=== PATIENT | female | born 1990 | race Caucasian/White ===

== ENCOUNTER 2019-10-04 08:08 | Emergency (ER) | payer MEDICAID, SELFPAY ==
--- NOTE | ~2019-10-04 | US_ITS ---
EXAMINATION: US OB <=14 wk fetus w TV DATE: 10/04/2019 09:52 INDICATION: Abdominal pain. First trimester. TECHNIQUE: Real-time transabdominal and transvaginal pelvic ultrasound was performed. COMPARISON: None. FINDINGS: TRANSABDOMINAL ULTRASOUND: The uterus measures 9.8 x 5.3 x 7.2 cm. TRANSVAGINAL ULTRASOUND: There is no visible intrauterine gestational sac. The endometrial complex is 13 mm in thickness. The right ovary measures 3.0 x 2.1 x 1.7 cm. The left ovary measures 4.1 x 2.1 x 2.5 cm. There is no free fluid in the pelvis. IMPRESSION: 1. No visible intrauterine gestational sac, which may be normal in early . Ectopic pregnanc y and spontaneous are not excluded. Serial beta-hCGs are recommended. Reviewed, dictated and finalized at location A. IMPRESSION: 1. No visible intrauterine gestational sac, which may be normal in early pregn naun. Ectopic and spontaneous are not excluded. Serial beta- hCGs are recommended.
[2019-10-04 08:14] VITALS: BP 135/81; PULSE 100; RESP 18; TEMP 36.7; O2SAT 100
--- NOTE | 2019-10-04 08:18 | ED.ABDPAIN ---
HPI - Abdominal Pain General Chief Complaint: Abdominal Pain Stated Complaint: abdominal pain Time Seen by Provider: 10/04/19 08:14 Source: RN notes reviewed History of Present Illness HPI narrative: Patient presents emergency department from home for abdominal pain. Patient states symptoms began last night. The pain is located left upper quadrant does not radiate. Described as cramping in nature. The patient states she has a history of Crohn's disease and is on no current medication but states this feels like a normal Crohn's flareup. She is followed by Dr. Fitch. Patient states she also had a recent positive home test at home. Last menstrual cycle was at the end of August. She is followed by [facility]. She denies any vaginal bleeding or discharge. Denies any fevers or chills vomiting diarrhea or any other symptoms Related Data Allergies Allergy/AdvReac Type Severity Reaction Status Date / Time No Known Allergies Allergy Verified 10/04/19 08:18 Review of Systems Review of Systems: Narrative: Gen.: Denies fevers or chills Eyes: Denies eye pain or visual change ENT: Denies congestion Respiratory: Denies shortness of breath or cough CV: Denies chest pain or palpitations GI: See HPI reports Musculoskeletal: Denies back pain or muscle pain Neuro: Denies numbness, tingling, weakness or focal weakness Skin: Denies rash Except as documented, all other systems reviewed and negative [facility] Past Medical History Medical History (Updated 10/04/19 @ 13:08 by Marlo Ring DO) Crohn's disease Social History Social History (Updated 10/04/19 @ 08:21 by Marlo Ring DO) Smoking status: Never smoker Exam Narrative: Exam Narrative: APPEARANCE: No acute distress, nontoxic, resting in bed HEENT: Normocephalic, atraumatic, OMM RESPIRATORY: No respiratory distress, clear to auscultation bilaterally with no rhonchi wheezing or rales CARDIOVASCULAR: RRR s murmur ABDOMINAL: Soft, nondistended, tender palpation left upper quadrant, no tenderness right upper quadrant, right lower quadrant left lower quadrant, no rebound or guarding MUSCULOSKELETAl: Moves all extremities. No clubbing, cyanosis or edema. NEURO: Awake and alert. Following commands, speech normal, no focal deficits SKIN:: Warm, dry. Normal Color PSYCHIATRIC: Normal affect/mood Course Course Emergency Course: Reviewed old records Called and discussed with Dr. Fitch presentation work-up. Agrees with plan for discharge. Request patient be started on Pentasa 2000 mg twice daily with follow-up as an outpatient Discussed with Dr. Marc presentation work-up agrees plan for discharge follow-up as an outpatient repeat beta-hCG Patient states that they are feeling much better at this time. States abdominal pain has improved. Repeat abdominal exam shows the patient's abdomen to be soft with no surgical abdomen present. I discussed extensively with the patient she does know she has a history of Crohn's disease and bowel obstructions. She states she is not vomiting discussed limitations of imaging with she is comfortable being discharged with strict return precautions. We discussed starting Pentasa. Discussed need for follow-up with [facility] as well for repeat beta-hCG discussed with patient results of workup and diagnosis. Discussed need for follow-up with primary care physician, reasons to return to the emergency department in proper use of medication. Patient understands and agrees to current treatment plan Vital Signs Vital signs: Vital Signs Temperature 98.0 F 10/04/19 08:14 Pulse Rate 100 10/04/19 08:14 Respiratory Rate 18 10/04/19 08:14 Blood Pressure 135/81 10/04/19 08:14 Pulse Oximetry 100 10/04/19 08:14 Temperature 98.0 F 10/04/19 08:14 Pulse Rate 102 H 10/04/19 11:04 Respiratory Rate 18 10/04/19 11:04 Blood Pressure 109/75 10/04/19 11:04 Pulse Oximetry 100 10/04/19 11:04
[2019-10-04] MEDS: SODIUM CHLORIDE 0.9% IV 1,000 ML 999 ML IV CONT (08:25)
[2019-10-04 08:32] LABS: Basophils Percent Auto 0.2 % (0.2-1.2); Eosinophils Percent Auto 0.3 % (0-4.4); Hematocrit 46.4 % (37.0-47.0); Hemoglobin 15.9 g/dL (12.0-15.0); Immature Granulocyte Absolute 0.04 K/mm3 (0.00-0.031); Immature Granulocyte Percent A 0.3 % (0-0.5); Lymphocytes Absolute Auto 1.26 K/mm3 (0.9-3.2); Lymphocytes Percent Auto 9.9 % (18.3-44.2); Mean Corpuscular HGB Conc 34.3 g/dl (32-36); Mean Corpuscular Hemoglobin 29.8 pg (26-34); Mean Corpuscular Volume 86.9 fl (80-100); Monocytes Absolute Auto 0.4 K/mm3 (0.1-0.6); Monocytes Percent Auto 3.5 % (2.6-8.5); Neutrophils Absolute Auto 10.9 K/mm3 (1.3-6.7); Neutrophils Percent Auto 85.8 % (45.5-73.1); Platelet Count Result 249 k/mm3 (150-375); Red Blood Count 5.34 M/mm3 (4.2-5.4); Red Cell Distribution Width 12.4 % (11.5-14.5); White Blood Count 12.7 K/mm3 (4.5-10.0)
[2019-10-04 08:35] LABS: Add Urine Microscopic? YES; Appearance Urine Cloudy (Clear); Bilirubin Urine Negative (Negative); Blood Urine Negative (Negative); Color Urine Yellow (Yellow); Glucose Urine UA Negative (Negative); Ketones Urine Negative (Negative); Leukocyte Esterase Ur Negative LEU/UL (Negative); Mucus Urine Rare /lpf; Nitrate Urine Negative (Negative); Protein Urine Negative (Negative); RBC Urine 0-2 /hpf (0-2); Specific Grav Ur 1.017 (1.001-1.035); Squamous Epithelial Cell Urine Many /hpf (Few); Urobilinogen Urine Negative mg/dL (<2.0); WBC Urine 0-3 /hpf
[2019-10-04] MEDS: FAMOTIDINE 20 MG/2 ML VIAL IV PUSH (08:38)
[2019-10-04 08:44] LABS: Alanine Aminotransferase 19 U/L (4-35); Albumin Level 4.7 g/dL (3.5-5.1); Alkaline Phosphatase 74 U/L (38-126); Aspartate Amino Transferase 24 U/L (14-36); Bilirubin,Total 0.6 mg/dL (0.2-1.3); Blood Urea Nitrogen 8 mg/dL (7-17); Calcium 9.5 mg/dL (8.4-10.2); Carbon Dioxide 23 mmol/L (22-30); Chloride 105 mmol/L (98-107); Estimated CRCL calculation 119 ml/min; Estimated Glomerular Filt Rate > 60; Glucose 109 mg/dL (65-105); Lipase 72 U/L (23-300); Potassium 4.2 mmol/L (3.4-5.0); Sodium 136 mmol/L (137-145)
[2019-10-04 09:00] LABS: Beta HCG Quantitative 124.35 mIU/ML
[2019-10-04 09:21] VITALS: BP 103/56; PULSE 83; RESP 18; O2SAT 100
[2019-10-04 11:04] VITALS: BP 109/75; PULSE 102; RESP 18; O2SAT 100
[2019-10-04] MEDS: MESALAMINE 250 MG CAP CR 2000 MG PO (13:26)
== END 2019-10-04 13:27 | disposition home or self-care (01) ==
PROVIDERS: Emergency Provider Emergency Medicine; PCP Internal Medicine
DX: O26.891 Other specified pregnancy related conditions, first trimester (principal); R10.12 Left upper quadrant pain; O99.619 Diseases of the digestive system complicating pregnancy, unspecified trimester; K50.90 Crohn's disease, unspecified, without complications; Z3A.01 Less than 8 weeks gestation of pregnancy
CPT/HCPCS: 36415; 76801; 76817; 80053; 81001; 81025; 83690; 84702; 85025; 96361; 96374; 96375; 99284; A9270; J0131; J7030

== ENCOUNTER 2020-01-26 11:47 | Emergency (ER) | payer OTHER, SELFPAY ==
--- NOTE | 2020-01-26 11:52 | ED.ALLEREA ---
HPI - Allergic Reaction General Chief complaint: Allergic Reaction Stated complaint: anaphalaxis Time Seen by Provider: 01/26/20 11:52 Source: patient Mode of arrival: wheelchair Limitations: no limitations History of Present Illness HPI narrative: Patient is a 29-year-old female with history of Crohn's disease who presents for evaluation of allergic reaction. Patient reportedly was outside taking photographs of her children when she was suddenly stung by either a bee or a wasp. Patient with multiple envenomation sites including left thumb, left knee, right eye, right posterior ear. Patient reports itching sensation in her throat, trouble breathing, cough, rash. Patient without history of anaphylaxis in the past. She states she thinks she is only been stung once before. Patient denies any nausea, vomiting or diarrhea. Related Data Allergies Allergy/AdvReac Type Severity Reaction Status Date / Time No Known Allergies Allergy Verified 01/26/20 11:56 Review of Systems Review of Systems: Narrative: CONSTITUTIONAL: Denies fever HEENT: Reports eye swelling, right eye CARDIOVASCULAR: Denies chest pain RESPIRATORY: Reports tingling sensation in throat, reports mild cough GASTROINTESTINAL: Denies abdominal pain, nausea or vomiting SKIN: Reports rash MUSCULOSKELETAL: Denies back pain NEUROLOGIC: Denies headache PMFSH Past Medical History Medical History Crohn's disease Social History Social History Smoking status: Never smoker Gender identity (if verbalized by the patient): Female Exam Narrative: Exam Narrative: GENERAL: Awake, alert, conversant HEAD: Normocephalic, atraumatic. Mild right superior eyelid edema. EYES: 2+ PERRLA and EOMI. ENT: Nares clear, no rhinorrhea or epistaxis. Mucous membranes moist. Uvula is midline, no edema. No trismus. NECK: Supple. CHEST: No respiratory distress, breathing even and non labored HEART: Regular rate, sinus rhythm ABDOMEN:Non distended, non tender EXTREMITIES: Normal range of motion. No edema. SKIN: Warm, dry, urticaria overlying chest and back. Envenomation site left thumb, left knee, right eye, right ear. No stingers. NEURO:No focal deficits. Alert and oriented x3 Course Vital Signs Vital signs: Vital Signs Temperature 36.8 C 01/26/20 11:53 Pulse Rate 98 01/26/20 11:53 Respiratory Rate 21 H 01/26/20 11:53 Blood Pressure 152/98 H 01/26/20 11:53 Pulse Oximetry 98 01/26/20 11:53 Temperature 36.8 C 01/26/20 11:53 Pulse Rate 96 01/26/20 14:26 Respiratory Rate 18 01/26/20 14:26 Blood Pressure 126/74 01/26/20 14:26 Pulse Oximetry 98 01/26/20 14:26 MDM - Allergic Reaction MDM Narrative Medical decision making narrative: Patient presented for evaluation of hornet envenomation, rash, shortness of breath. The time of assessment, ABCs are intact and vital signs are stable. Patient does have symptoms consistent with anaphylaxis given we have skin involvement, throat involvement. No respiratory distress. No hypoxemia. No wheezing. IV access obtained and patient was given intramuscular epinephrine, Solu-Medrol, Benadryl, famotidine with complete resolution in her symptoms. No recurrence of symptoms in the ER. Patient monitored for 4 hours and did well without any recurrent signs of allergic reaction or anaphylaxis. Patient is not unstable. Patient will be discharged home with these medications, advised to keep them on her at all times. Given education had to use epinephrine autoinjector. Given close PCP follow-up as well as return precautions. Differential Diagnosis Differential diagnosis: Likely anaphylaxis, allergic reaction and urticaria ECG Data EKG #1: ECG completion date: 01/26/20 ECG completion time: 11:53 Interpretation: Rate 92, sinus rhythm, intervals normal, normal axis, no ST segment elevation or dep
[2020-01-26 11:53] VITALS: BP 152/98; PULSE 98; RESP 21; TEMP 36.8; O2SAT 98
[2020-01-26] MEDS: methylPREDNISolone SOD SUCC 125 MG VIAL IV PUSH (11:57)
[2020-01-26] MEDS: FAMOTIDINE 20 MG/2 ML VIAL IV PUSH (11:57)
[2020-01-26] MEDS: EPINEPHrine HCL INJ 1 MG/ML AMPUL 0.3 MG IM (11:57)
[2020-01-26] MEDS: diphenhydrAMINE HCl INJ 50 MG/ML VIAL IV PUSH (11:57)
[2020-01-26 12:08] VITALS: BP 131/76; PULSE 82; RESP 16; O2SAT 98
[2020-01-26] MEDS: SODIUM CHLORIDE 0.9% IV 1,000 ML 999 ML IV CONT (12:19)
--- NOTE | 2020-01-26 13:11 | ECG_ITS ---
Measurements Intervals [place] Rate: 92 P: 73 SC: 169 QRS: 67 QRSD: 84 T: 48 QT: 337 QTc: 419 Interpretive Statements SINUS RHYTHM BASELINE ARTIFACT- V4-V6 NORMAL ECG Electronically Signed On 01-26-2020 18:08:55 CDT by Oscar Thorne D.O.
[2020-01-26 14:26] VITALS: BP 126/74; PULSE 96; RESP 18; O2SAT 98
[2020-01-26 15:35] VITALS: BP 113/69; PULSE 113; RESP 15; O2SAT 98
== END 2020-01-26 16:11 | disposition home or self-care (01) ==
PROVIDERS: Emergency Provider Emergency Medicine; PCP Internal Medicine
DX: T78.2XXA Anaphylactic shock, unspecified, initial encounter (principal); T63.451A Toxic effect of venom of hornets, accidental (unintentional), initial encounter; K50.90 Crohn's disease, unspecified, without complications
CPT/HCPCS: 93005; 96372; 96374; 96375; 99284; J0171; J1200; J2930; J7030

== ENCOUNTER 2020-06-09 11:36 | Emergency (ER) | payer OTHER, MEDICAID, SELFPAY ==
[2020-06-09] VITALS (7 sets, daily range): BP systolic 117–129; BP diastolic 76–84; PULSE 68–98; RESP 15–20; TEMP 36.6; O2SAT 96–100
--- NOTE | ~2020-06-09 | US_ITS ---
EXAMINATION: US OB <= 14 weeks fetus DATE: 06/09/2020 12:27 INDICATION: Abdominal pain during first trimester TECHNIQUE: Real-time pelvic ultrasound utilizing transabdominal probe was performed. The kimberly espinal radiologist was not present for the study. COMPARISON: None. FINDINGS: The uterus measures 13.0 x 8.7 x 8.0 cm. There is an intrauterine gestational sac. A yolk sac and fe drake pole are identified. The crown rump length measures 3.4, which correlates with an estimated gesta tional age of 10 weeks and 2 days. heart motion is identified measuring 159 beats per minute (b pm) by M-mode Doppler. The right ovary measures 2.7 x 1.5 x 2.0 cm. Vascular flow identified in the right ovary on color Dop pler. The left ovary is not visualized There is no free fluid in the pelvis. IMPRESSION: 1. Single living fetus with heart rate of 159 bpm. 2. Gestational age by ultrasound of 10 weeks 2 day(s) +/- 6 day(s) with ultrasound estimated date of delivery ([facility]) of 01/03/2021. Reviewed, dictated and finalized at location A. [facility] IMPRESSION: 1. Single living fetus with heart rate of 159 bpm. 2. Gestational age by ultrasound of 10 weeks 2 day(s) +/- 6 day(s) with ultras ound estimated date of delivery ([facility]) of 01/03/2021.
--- NOTE | 2020-06-09 11:59 | ED.GENADULT ---
HPI - General Adult General Chief complaint: Dizziness Stated complaint: Dizzy, OB Sent patient Time Seen by Provider: 06/09/20 11:51 Source: RN notes reviewed History of Present Illness HPI narrative: Patient presents emergency department from home for dizziness. Patient states symptoms began 3 days ago has been having some intermittent dizziness. States she overall with her dizziness has been having some fatigue she is approximately 10 weeks and is followed by [facility]. States she has been having some lower abdominal pain over the past day this located left lower abdomen as well as some intermittent back pain she denies any fevers or chills chest pain shortness of breath vaginal bleeding vomiting or any other symptoms. She denies any dizziness with sitting in bed but states she does get dizziness with standing up. States she took Tylenol last approximately 2 hours ago patient denies any vaginal bleeding or discharge Related Data Home Medications Medication Instructions Recorded Confirmed No Home Medications 06/09/20 06/09/20 Allergies Allergy/AdvReac Type Severity Reaction Status Date / Time No Known Allergies Allergy Verified 06/09/20 11:44 Review of Systems Review of Systems: Narrative: Gen.: Denies fevers or chills Eyes: Denies eye pain or visual change ENT: Denies congestion Respiratory: Denies shortness of breath or cough CV: Denies chest pain or palpitations GI: See HPI Musculoskeletal: Denies back pain or muscle pain Neuro: Denies numbness, tingling, weakness or focal weakness reports dizziness Skin: Denies rash Except as documented, all other systems reviewed and negative [facility] Past Medical History Medical History Crohn's disease Social History Social History Smoking status: Never smoker Gender identity (if verbalized by the patient): Female Exam Narrative: Exam Narrative: APPEARANCE: No acute distress, nontoxic, resting in bed EYES: EOMI HEENT: Normocephalic, atraumatic, OMM RESPIRATORY: No respiratory distress Clear to auscultation bilaterally with no rhonchi wheezing or rales. CARDIOVASCULAR: Regular rate and rhythm without murmurs rubs or gallops. ABDOMINAL: Soft, nontender, nondistended, no rebound or guarding MUSCULOSKELETAl: Moves all extremities. No clubbing, cyanosis or edema. NEURO: Awake and alert. Following commands, speech normal, no focal deficits SKIN:: Warm, dry. No rashes lesions or abrasions PSYCHIATRIC: Normal affect/mood, Course Course Emergency Course: Patient states dizziness is improved at this time able to get up and ambulate with no dizziness in the emergency department states abdominal pain is resolved Discussed with Dr. Marc presentation work-up agrees with plan for discharge follow-up as an outpatient Discussed with patient results of workup and diagnosis. Discussed need for follow-up with primary care, proper use of medication, and reasons to return to the emergency department. Patient understands and agrees to current treatment plan Vital Signs Vital signs: Vital Signs Temperature 97.8 F 06/09/20 11:39 Pulse Rate 68 06/09/20 11:39 Respiratory Rate 20 06/09/20 11:39 Blood Pressure 127/82 06/09/20 11:39 Pulse Oximetry 99 06/09/20 11:39 Temperature 97.8 F 06/09/20 11:39 Pulse Rate 79 06/09/20 15:38 Respiratory Rate 17 06/09/20 15:38 Blood Pressure 126/76 06/09/20 15:38 Pulse Oximetry 99 06/09/20 15:38 Medical Decision Making Vital Signs Vital Signs: Vital Signs Temperature 97.8 F 06/09/20 11:39 Pulse Rate 68 06/09/20 11:39 Respiratory Rate 20 06/09/20 11:39 Blood Pressure 127/82 06/09/20 11:39 Pulse Oximetry 99 06/09/20 11:39 Temperature 97.8 F 06/09/20 11:39 Pulse Rate 79 06/09/20 15:38 Respiratory Rate 17 06/09/20 15:38 Blood Pressure 126/76
[2020-06-09 12:18] LABS: Basophils Percent Auto 0.1 % (0.2-1.2); Eosinophils Percent Auto 0.4 % (0-4.4); Hemoglobin 14.6 g/dL (12.0-15.0); Immature Granulocyte Absolute 0.03 K/mm3 (0.00-0.031); Immature Granulocyte Percent A 0.4 % (0-0.5); Lymphocytes Absolute Auto 1.47 K/mm3 (0.9-3.2); Lymphocytes Percent Auto 17.8 % (18.3-44.2); Mean Corpuscular HGB Conc 34.8 g/dl (32-36); Mean Corpuscular Hemoglobin 29.7 pg (26-34); Mean Corpuscular Volume 85.4 fl (80-100); Mean Platelet Volume 9.7 fl (7.4-10.4); Monocytes Absolute Auto 0.4 K/mm3 (0.1-0.6); Monocytes Percent Auto 5.3 % (2.6-8.5); Neutrophils Absolute Auto 6.3 K/mm3 (1.3-6.7); Platelet Count Result 218 k/mm3 (150-375); Red Blood Count 4.92 M/mm3 (4.2-5.4); Red Cell Distribution Width 12.9 % (11.5-14.5); White Blood Count 8.3 K/mm3 (4.5-10.0)
--- NOTE | 2020-06-09 12:18 | PC.NURSE ---
PT IN U/S AT THIS TIME.
[2020-06-09 12:24] LABS: Add Urine Microscopic? YES; Appearance Urine Clear (Clear); Bacteria Urine Trace /hpf; Bilirubin Urine Negative (Negative); Blood Urine Negative (Negative); Color Urine Yellow (Yellow); Glucose Urine UA Negative (Negative); Ketones Urine 1+ mg/dL (Negative); Leukocyte Esterase Ur Negative LEU/UL (Negative); Mucus Urine Heavy /lpf; Nitrate Urine Negative (Negative); Protein Urine Negative (Negative); RBC Urine 0-2 /hpf (0-2); Specific Grav Ur 1.024 (1.001-1.035); Squamous Epithelial Cell Urine Moderate /hpf (Few); Urobilinogen Urine Negative mg/dL (<2.0); WBC Urine 0-3 /hpf
[2020-06-09 12:35] LABS: Alanine Aminotransferase 17 U/L (4-35); Albumin Level 4.3 g/dL (3.5-5.1); Alkaline Phosphatase 52 U/L (38-126); Anion Gap 8 mmol/L (8-16); Aspartate Amino Transferase 22 U/L (14-36); Bilirubin,Total 0.4 mg/dL (0.2-1.3); Blood Urea Nitrogen 9 mg/dL (7-17); Calcium 9.8 mg/dL (8.4-10.2); Carbon Dioxide 25 mmol/L (22-30); Chloride 104 mmol/L (98-107); Estimated Glomerular Filt Rate > 60; Glucose 84 mg/dL (65-105); Potassium 3.8 mmol/L (3.4-5.0); Sodium 137 mmol/L (137-145)
[2020-06-09] MEDS: SODIUM CHLORIDE 0.9% IV 1,000 ML 999 ML IV CONT (12:39)
--- NOTE | 2020-06-09 13:47 | ECG_ITS ---
Measurements Intervals [place] Rate: 70 P: 52 MI: 163 QRS: 56 QRSD: 73 T: 22 QT: 373 QTc: 404 Interpretive Statements SINUS RHYTHM BASELINE ARTIFACT- I, II, AVR NORMAL ECG Electronically Signed On 06-09-2020 14:00:05 MOLD REPAIR TECHNICIAN by Oscar Thorne D.O.
--- NOTE | 2020-06-09 13:55 | PC.NURSE ---
I did not obtain this EKG, documenting from EKG
--- NOTE | 2020-06-09 14:28 | PC.NURSE ---
pt ambulates well without assistance. c/o mild frontal headache upon standing.
== END 2020-06-09 15:39 | disposition home or self-care (01) ==
PROVIDERS: Emergency Provider Emergency Medicine; PCP Internal Medicine
DX: O26.891 Other specified pregnancy related conditions, first trimester (principal); R42 Dizziness and giddiness; R10.9 Unspecified abdominal pain; O99.611 Diseases of the digestive system complicating pregnancy, first trimester; K50.90 Crohn's disease, unspecified, without complications; Z3A.10 10 weeks gestation of pregnancy
CPT/HCPCS: 36415; 76801; 80053; 81001; 85025; 93005; 96360; 99284; J7030

== ENCOUNTER 2020-06-18 09:39 | Outpatient (CLI) | payer OTHER, MEDICAID, SELFPAY ==
--- NOTE | 2020-06-20 12:36 | WPDHOLTEREM ---
Holter/Event Monitor Holter/Event Monitor Date of procedure: 06/18/20 Procedure Type: 24 hour holter monitor Indications: Palpitations, sob Conclusion: 1. 24 hour holter monitor on 06/18/20. 2. Underlying rhythm is sinus rhythm. HR range 48-146 bpm; average HR 81 bpm. 3. There are 2 premature supraventricular complexes. No supraventricular tachycardia. 4. No premature ventricular complexes. No ventricular tachycardia. 5. No sinoatrial or atrioventricular blocks. No significant pauses greater than 2 seconds. 6. No symptoms available for correlation.
== END 2020-06-18 09:40 | disposition home or self-care (01) ==
PROVIDERS: PCP Internal Medicine; Visit Provider Obstetrics & Gynecology
DX: R06.09 Other forms of dyspnea (principal)
CPT/HCPCS: 93225; 93226

== ENCOUNTER 2020-10-08 17:35 | Observation (INO) | payer OTHER, SELFPAY ==
[2020-10-08 18:10] VITALS: TEMP 36.1; BMI 32.0
[2020-10-08 18:11] VITALS: BP 127/80; PULSE 96
[2020-10-08 19:03] LABS: Add Urine Microscopic? YES; Amorphous Sediment Urine Few; Appearance Urine Cloudy (Clear); Bacteria Urine 1+ /hpf; Bilirubin Urine Negative (Negative); Blood Urine Negative (Negative); Color Urine Yellow (Yellow); Glucose Urine UA 1+ mg/dL (Negative); Ketones Urine Trace mg/dL (Negative); Leukocyte Esterase Ur Negative LEU/UL (Negative); Mucus Urine Heavy /lpf; Nitrate Urine Negative (Negative); Protein Urine 1+ mg/dL (Negative); Specific Grav Ur 1.023 (1.001-1.035); Squamous Epithelial Cell Urine Many /hpf (Few); Urobilinogen Urine Negative mg/dL (<2.0)
--- NOTE | 2020-10-08 19:43 | OBADM ---
This patient, Agnieszka Sykes, admitted to the OB room OB Post 116 for observation. Patient/family oriented to hospital policies and general routines including ID bracelet, bed and alarms, visiting hours, pain management, procedures, bathroom and other care routines, personal items, smoking policy, room service/diet, and visiting hours. Patient/Family are encouraged to report perceived risks to care and to ask questions if they do not understand what they are told or what they should do.
--- NOTE | 2020-10-10 07:23 | PM.OBTRLD ---
OB - Triage/Final Diagnosis Visit Information Date of evaluation: 10/08/20 Reason for evaluation: threatened labor Comments/Additional reasons for admission: I have assessed the risk for this patient, Agnieszka Sykes, and determined that she would benefit from observation care. Evaluation Laboratory results: Laboratory Tests 10/08/20 18:49 Urine Color Yellow Urine Appearance Cloudy H Urine pH 6.0 Ur Specific [place] 1.023 Urine Protein 1+ H Urine Glucose (UA) 1+ H Urine Ketones Trace Ur Blood (Man) Negative Urine Nitrate Negative Urine Bilirubin Negative Urine Urobilinogen Negative Leukocyte Esterase Rfl Negative Urine RBC 3-5 H Urine WBC 4-6 H Ur Squamous Epith Cells Many H Amorphous Sediment Few H Urine Bacteria 1+ H Urine Mucus Heavy H
== END 2020-10-08 19:48 | disposition home or self-care (01) ==
PROVIDERS: Advanced Practice Midwife; Admitting Provider Obstetrics & Gynecology; PCP Internal Medicine; Visit Provider Obstetrics & Gynecology
DX: O47.02 False labor before 37 completed weeks of gestation, second trimester (principal); Z3A.27 27 weeks gestation of pregnancy
CPT/HCPCS: 81001; G0378; G0379

== ENCOUNTER 2020-12-16 10:41 | Outpatient (CLI) | payer OTHER, SELFPAY ==
[2020-12-16 11:15] VITALS: BP 122/70; PULSE 85; PULSE 96
[2020-12-16 11:23] LABS: Basophils Percent Auto 0.1 % (0.2-1.2); Eosinophils Percent Auto 0.4 % (0-4.4); Hematocrit 36.4 % (37.0-47.0); Hemoglobin 12.2 g/dL (12.0-15.0); Immature Granulocyte Absolute 0.04 K/mm3 (0.00-0.031); Immature Granulocyte Percent A 0.4 % (0-0.5); Lymphocytes Absolute Auto 1.24 K/mm3 (0.9-3.2); Lymphocytes Percent Auto 12.7 % (18.3-44.2); Mean Corpuscular HGB Conc 33.5 g/dl (32-36); Mean Corpuscular Hemoglobin 29.3 pg (26-34); Mean Corpuscular Volume 87.5 fl (80-100); Mean Platelet Volume 10.2 fl (7.4-10.4); Monocytes Absolute Auto 0.7 K/mm3 (0.1-0.6); Monocytes Percent Auto 7.5 % (2.6-8.5); Neutrophils Absolute Auto 7.7 K/mm3 (1.3-6.7); Neutrophils Percent Auto 78.9 % (45.5-73.1); Platelet Count Result 175 k/mm3 (150-375); Red Blood Count 4.16 M/mm3 (4.2-5.4); Red Cell Distribution Width 14.2 % (11.5-14.5); White Blood Count 9.8 K/mm3 (4.5-10.0)
[2020-12-16 11:30] VITALS: BP 110/72; PULSE 91
[2020-12-16 11:39] LABS: Add Urine Microscopic? YES; Appearance Urine Cloudy (Clear); Bacteria Urine 1+ /hpf; Bilirubin Urine Negative (Negative); Blood Urine Negative (Negative); Color Urine Yellow (Yellow); Glucose Urine UA Negative (Negative); Ketones Urine Negative (Negative); Leukocyte Esterase Ur Trace LEU/UL (NEGATIVE); Mucus Urine Few /lpf; Nitrate Urine Negative (Negative); Protein Urine 1+ mg/dL (Negative); Specific Grav Ur 1.023 (1.001-1.035); Squamous Epithelial Cell Urine Many /hpf (Few); Urobilinogen Urine Negative mg/dL (<2.0)
[2020-12-16 11:45] VITALS: BP 113/72; PULSE 88
[2020-12-16 11:50] LABS: Alanine Aminotransferase 13 U/L (4-35); Albumin Level 3.6 g/dL (3.5-5.1); Alkaline Phosphatase 133 U/L (38-126); Anion Gap 6 mmol/L (8-16); Aspartate Amino Transferase 19 U/L (14-36); Bilirubin,Total 0.3 mg/dL (0.2-1.3); Blood Urea Nitrogen 9 mg/dL (7-17); Calcium 9.2 mg/dL (8.4-10.2); Carbon Dioxide 19 mmol/L (22-30); Chloride 109 mmol/L (98-107); Estimated Glomerular Filt Rate > 60; Glucose 81 mg/dL (65-110); Potassium 4.1 mmol/L (3.4-5.0); Sodium 134 mmol/L (137-145); Uric Acid 4.8 mg/dL (2.5-7.5)
[2020-12-16 11:51] LABS: Total Protein Urine Random 17 mg/dL; Ur Ttl Prot Creatinine Ratio 0.11 mg/mg (0-0.20)
[2020-12-16 12:00] VITALS: BP 102/72; PULSE 84
--- NOTE | 2020-12-16 12:11 | PC.NURSE ---
BP's and lab results called to marija Mckeon to dc home.
== END 2020-12-16 12:15 | disposition home or self-care (01) ==
LOC: ANHOBOP 10:44 → ANHOBPP 10:45
PROVIDERS: Advanced Practice Midwife; PCP Internal Medicine; Visit Provider Obstetrics & Gynecology
DX: O13.9 Gestational [pregnancy-induced] hypertension without significant proteinuria, unspecified trimester (principal); Z3A.00 Weeks of gestation of pregnancy not specified
CPT/HCPCS: 36415; 59025; 80053; 81001; 82570; 84156; 84550; 85025; 87086; 87088; 99199

== ENCOUNTER 2020-12-20 12:23 | Outpatient (CLI) | payer OTHER, SELFPAY ==
[2020-12-20 12:46] VITALS: BP 111/69; PULSE 141
[2020-12-20 13:00] VITALS: BP 127/88; PULSE 112
[2020-12-20 13:07] LABS: Basophils Percent Auto 0.1 % (0.2-1.2); Eosinophils Percent Auto 0.4 % (0-4.4); Hematocrit 37.2 % (37.0-47.0); Hemoglobin 12.5 g/dL (12.0-15.0); Immature Granulocyte Absolute 0.05 K/mm3 (0.00-0.031); Immature Granulocyte Percent A 0.5 % (0-0.5); Lymphocytes Absolute Auto 1.43 K/mm3 (0.9-3.2); Mean Corpuscular HGB Conc 33.6 g/dl (32-36); Mean Corpuscular Hemoglobin 29.3 pg (26-34); Mean Corpuscular Volume 87.3 fl (80-100); Monocytes Absolute Auto 0.6 K/mm3 (0.1-0.6); Monocytes Percent Auto 5.4 % (2.6-8.5); Neutrophils Absolute Auto 8.8 K/mm3 (1.3-6.7); Neutrophils Percent Auto 80.6 % (45.5-73.1); Platelet Count Result 188 k/mm3 (150-375); Red Blood Count 4.26 M/mm3 (4.2-5.4); Red Cell Distribution Width 14.2 % (11.5-14.5)
[2020-12-20 13:15] VITALS: BP 128/80; PULSE 101
[2020-12-20 13:19] LABS: Alanine Aminotransferase 12 U/L (4-35); Albumin Level 3.6 g/dL (3.5-5.1); Alkaline Phosphatase 136 U/L (38-126); Anion Gap 7 mmol/L (8-16); Aspartate Amino Transferase 19 U/L (14-36); Bilirubin,Total 0.3 mg/dL (0.2-1.3); Blood Urea Nitrogen 11 mg/dL (7-17); Calcium 9.1 mg/dL (8.4-10.2); Carbon Dioxide 21 mmol/L (22-30); Chloride 107 mmol/L (98-107); Estimated Glomerular Filt Rate > 60; Glucose 90 mg/dL (65-110); Potassium 3.8 mmol/L (3.4-5.0); Sodium 135 mmol/L (137-145); Uric Acid 4.8 mg/dL (2.5-7.5)
[2020-12-20 13:30] VITALS: BP 135/81; PULSE 102
--- NOTE | 2020-12-20 14:10 | PC.NURSE ---
Called Leslye Negrete CNM with pt status. Pt states that she has not felt her baby move since yesterday, has a headache, blurry vision, and upper abdominal pain. Pt states that the headache and upper abdominal pain has been present for weeks and the abdominal pain is better when sitting up than lying back. BPs and lab results given. Informed of initial maternal heart rate of 140's, but now is 100's. Pt has marked a couple of movements on the monitor, but has been getting NSTs in the office for decreased movement. BPP yesterday was 11/23. August D/C home to follow up in office on Tuesday with Dr. Marc.
== END 2020-12-20 14:20 | disposition home or self-care (01) ==
LOC: ANHOBOP 12:29 → ANHLDR 12:31
PROVIDERS: Advanced Practice Midwife; PCP Internal Medicine; Visit Provider Obstetrics & Gynecology
DX: O36.8190 Decreased fetal movements, unspecified trimester, not applicable or unspecified (principal); O13.9 Gestational [pregnancy-induced] hypertension without significant proteinuria, unspecified trimester; O26.899 Other specified pregnancy related conditions, unspecified trimester; R51.9 Headache, unspecified; H53.8 Other visual disturbances
CPT/HCPCS: 36415; 59025; 80053; 84550; 85025; 87086; 87088; 99199

== ENCOUNTER 2020-12-25 09:10 | Observation (INO) | payer OTHER, SELFPAY ==
--- NOTE | ~2020-12-25 | US_ITS ---
EXAMINATION: US OB limited w BPP EXAM DATE: 12/25/2020 11:51 INDICATION: QUOC, BPP, placenta check VARIABLE DECELS 3rd trimester. TECHNIQUE: Pelvic obstetrical transabdominal sonogram was performed by a technologist. There are mu ltiple grayscale and Doppler images available for interpretation. Comparison is made to prior examina tion from 06/09/2020. FINDINGS: There is a single fetus identified in vertex presentation with a heart rate of 137 beats pe r minute. The placenta is located in the anterior position. There is no sonographic evidence of retr oplacental hemorrhage identified. AMNIOTIC FLUID INDEX Quadrant 1: 1.6 cm Quadrant 2: 0 cm Quadrant 3: 3.2 cm Quadrant 4: 2.8 cm Amniotic fluid index: 7.6 cm. (The 5th -- 95th percentile range is 7.3-23.9). BIOPHYSICAL PROFILE (performed by the technologist) breathing (30 sec sustained breathing in 30 minutes): 2 out of 2 movement (3 gross body movements in 30 minutes): 2 out of 2 tone (one episode of eberrpa-sruhsgmyk-ympezfv limb movement): 2 out of 2 Amniotic fluid pocket (2 cm): 2 out of 2 Total score: 8 out of 8 IMPRESSION: 1. Single fetus with heart rate of 137 bpm. 2. Normal biophysical profile score of 8 out of 8. 3. Amniotic fluid index 7.6 cm, lower limits of normal. Reviewed, dictated and finalized at location A.
[2020-12-25 10:01] VITALS: BP 105/86; PULSE 86
[2020-12-25 10:21] LABS: Add Urine Microscopic? YES; Appearance Urine Clear (Clear); Bacteria Urine Trace /hpf; Bilirubin Urine Negative (Negative); Blood Urine Negative (Negative); Color Urine Yellow (Yellow); Glucose Urine UA 1+ mg/dL (Negative); Ketones Urine Negative (Negative); Leukocyte Esterase Ur Negative LEU/UL (Negative); Mucus Urine Few /lpf; Nitrate Urine Negative (Negative); Protein Urine 1+ mg/dL (Negative); Specific Grav Ur 1.021 (1.001-1.035); Squamous Epithelial Cell Urine Moderate /hpf (Few); Urobilinogen Urine Negative mg/dL (<2.0); WBC Urine 0-3 /hpf
[2020-12-25] MEDS: ACETAMINOPHEN 325 MG TABLET 650 MG PO (11:20)
--- NOTE | 2021-01-25 09:53 | PM.OBTRLD ---
OB - Triage/Final Diagnosis Visit Information Comments/Additional reasons for admission: I have assessed the risk for this patient, Agnieszka Sykes, and determined that she would benefit from observation care. Evaluation Laboratory results: Laboratory Tests 12/25/20 10:06 Urine Color Yellow Urine Appearance Clear Urine pH 6.0 Ur Specific [place] 1.021 Urine Protein 1+ H Urine Glucose (UA) 1+ H Urine Ketones Negative Ur Blood (Man) Negative Urine Nitrate Negative Urine Bilirubin Negative Urine Urobilinogen Negative Leukocyte Esterase Rfl Negative Urine RBC 3-5 H Urine WBC 0-3 Ur Squamous Epith Cells Moderate H Urine Bacteria Trace Urine Mucus Few H Final Diagnosis (1) False labor: Code(s): O47.9 - False labor, unspecified Status: Acute
== END 2020-12-25 12:30 | disposition home or self-care (01) ==
PROVIDERS: Advanced Practice Midwife; Admitting Provider Obstetrics & Gynecology; PCP Internal Medicine; Visit Provider Obstetrics & Gynecology
DX: O47.1 False labor at or after 37 completed weeks of gestation (principal); Z3A.38 38 weeks gestation of pregnancy
CPT/HCPCS: 76815; 76819; 81001; A9270; G0378; G0379

== ENCOUNTER 2020-12-28 18:33 | Outpatient (RCR) | payer OTHER, SELFPAY | END 2021-03-28 23:59 | disposition home or self-care (01) | LOC: ANHOBOP 18:33 | PROVIDERS: PCP Internal Medicine; Visit Provider Obstetrics & Gynecology | DX: O36.8130 Decreased fetal movements, third trimester, not applicable or unspecified (principal); Z3A.38 38 weeks gestation of pregnancy | CPT/HCPCS: 59025 ==

== ENCOUNTER 2020-12-29 14:24 | Inpatient (IN) | payer OTHER, SELFPAY ==
[2020-12-29] VITALS (102 sets, daily range): BP systolic 42–152; BP diastolic 22–113; PULSE 65–123; RESP 18–20; TEMP 36.5–36.6; O2SAT 91–100; BMI 32.3
--- NOTE | 2020-12-29 14:24 | LDADM ---
This patient, Agnieszka Sykes, was admitted to Labor/Delivery/Recovery 102 on 12/29/20 at 14:24. Plans for labor, pain management and were discussed with patient. Patient/family oriented to hospital policies and general routines including ID bracelet, bed and alarms, visiting hours, pain management, procedures, bathroom and other care routines, personal items, smoking policy, room service/diet and guest tray routines, infant security routines, and visiting hours. Patient/Family are encouraged to report perceived risks to care and to ask questions if they do not understand what they are told or what they should do. See OBIX for further documentation.
--- OUTSIDE RECORDS SUMMARY | 2020-12-29 14:31 | XMS_ITS ---
:1990 Author Care Team Providers Name Role Phone Marbin Marc Primary Care Provider Unavailable Allergies Code Code System Name Reaction Severity Status Onset NKDA ? Medications Name Status Start Date Stop Date ? ? amoxicillin 500 mg tablet Completed 02/04/20172016 take 1 tablet by oral route 3 times every day for 10 days Anusol-HC 2.5 % topical cream with perineal applicator Active ? Not available APPLY A THIN LAYER TO THE AFFECTED AREA(S) BY TOPICAL ROUTE 2-4 TIMESDAILY azithromycin 1 gram oral packet Completed 11/08/2014 02/18/2016 take 1 packet by oral route dissolved in 2 ounces of water as a single dose azithromycin 500 mg tablet Completed 11/12/201402/17 take 2 tablet by oral route once Banophen 25 mg capsule Completed ? 1 TK 1 C PO TID PRN mnwkbrkrgw-flejldedthxpu-cztgr Active ? N ot available ine 50 mg-300 mg-40 mg capsule cyclobenzaprine 5 mg tablet Completed 10/13/201505/2015 take 1 tablet by oral route 3 times every day Depo-Provera 150 mg/mL intramuscular suspension Completed 02/02/2018 04/25/2019 inject 1 milliliter by intramuscular route every 3 months Diflucan 150 mg tablet Completed 11/03/2016 7 take 1 tablet by oral route once epinephrine 0.3 mg/0.3 mL injection, auto-injector Completed ? 07/21/2020 USE IM UTD Flagyl 500 mg tablet Completed ? 10/12/2019 Take 1 tablet twice a day by oral route for 7 days. iron 18 mg tablet Completed ? 02/18/2016
--- OUTSIDE RECORDS SUMMARY | 2020-12-29 14:31 | XMS_ITS | Encounter Summary ---
:1990 Author Reason for Visit OB visit [id number] Assessment and Plan 1. Routine care Discussion Note: None recorded.Patient educational handouts: No information available. Plan of Care Reminders Provider Appointments Induction Casa Castelan 12/30/2020 MD Monico 7:00AM ? Ob Routine Марина interiano 01/05/2021 MD Cathy 11:30AM ? Ob Routine Марина interiano 01/12/2021 MD Cathy 10:30AM Lab None ? ? recorded. Referral None ? ? recorded. Procedures None ? ? recorded. Surgeries None ? ? recorded. Imaging None ? ? recorded. Medications Name Start Date ? ? Anusol-HC 2.5 % topical cream with perineal applicator ? APPLY A THIN LAYER TO THE AFFECTED AREA(S) BY TOPICAL ROUTE 2-4 TIMESDAILY albnpzctal-hwieqowtxrxlr-fxayfrds 50 mg-300 mg-40 mg c apsule ? Take 1 capsule every 4 hours by oral route. ? sertraline 50 mg tablet ? Take 1 tablet(s) every day by oral route. Medications Administered None recorded. Vitals Height Weight Blood Pressure 5 ft 3 in 218 lbs 156/82 mm[Hg] Results
--- OUTSIDE RECORDS SUMMARY | 2020-12-29 14:32 | XMS_ITS | Encounter Summary ---
:1990 Author Reason for Visit None recorded. Assessment and Plan 1. Maternal obesity complicating , childbirth and the puerperium, antepartum ? non-stress test Discussion Note: None recorded.Patient educational handouts: No information available. Plan of Care Reminders Provider Appointments Induction Casa Castelan 12/30/2020 MD Monico 7:00AM ? Ob Routine Марина interiano 01/05/2021 MD Cathy 11:30AM ? Ob Routine Марина interiano 01/12/2021 MD Cathy 10:30AM Lab None ? ? recorded. Referral None ? ? recorded. Procedures None ? ? recorded. Surgeries None ? ? recorded. Imaging Non-stress [place] Test 12/29/2020 Medications Name Start Date ? ? Anusol-HC 2.5 % topical cream with perineal applicator ? APPLY A THIN LAYER TO THE AFFECTED AREA(S) BY TOPICAL ROUTE 2-4 TIMESDAILY nkglkqlxvy-getfpneptgekq-bxkzpmib 50 mg-300 mg-40 mg c apsule ? Take 1 capsule every 4 hours by oral route. ? sertraline 50 mg tablet ? Take 1 tablet(s) every day by oral route. Medications Administered None recorded. Vit
--- OUTSIDE RECORDS SUMMARY | 2020-12-29 14:32 | XMS_ITS | Encounter Summary ---
:1990 Author Reason for Visit OB visit Assessment and Plan 1. Routine care Discussion Note: None recorded.Patient educational handouts: No information available. Plan of Care Reminders Provider Appointments Induction Rodol lindsey Castelan 12/30/2020 MD Monico 7:00AM ? Ob [...] AFFECTED AREA(S) BY TOPICAL ROUTE 2-4 TIMESDAILY epsvnjxacp-doyvpwuhcwenu-intfwgbt 50 mg-300 mg-40 mg c apsule ? Take 1 capsule every 4 hours by oral route. ? sertraline 50 mg tablet ? Take 1 tablet(s) every day by oral route. Medications Administered None recorded. Vitals Height Weight BMI Blood Pressure 5 ft 3 in 216 lbs 38.3 kg/m2 138/86 mm[Hg] Results Lab Results
--- OUTSIDE RECORDS SUMMARY | 2020-12-29 14:32 | XMS_ITS | Encounter Summary ---
[...] ? recorded. Imaging Non-stress [place] Test 12/23/2020 Medications Name Start Date ? ? Anusol-HC 2.5 % topical cream with perineal applicator ? APPLY A THIN LAYER TO THE AFFECTED AREA(S) BY TOPICAL ROUTE 2-4 TIMESDAILY euvdsnzsrr-bzdiapwavcwtv-yqvictsm 50 mg-300 mg-40 mg c apsule ? Take 1 capsule every 4 hours by oral route. ? sertraline 50 mg tablet ? Take 1 tablet(s) every day by oral route. Medications Administered None recorded. Isabela
--- OUTSIDE RECORDS SUMMARY | 2020-12-29 14:32 | XMS_ITS | Encounter Summary ---
:1990 Author Reason for Visit None recorded. Assessment and Plan 1. Maternal obesity complicating , childbirth and the puerperium, antepartum ? US, obstetric, biophysical profile Discussion Note: None recorded.Patient educational handouts: No information available. Plan of Care Reminders Provider Appointments Induction Rodsusie Castelan 12/30/2020 MD Monico 7:00AM ? Ob Routine Марина interiano 01/05/2021 MD Cathy 11:30AM ? Ob Routine Марина interiano 01/12/2021 MD Cathy 10:30AM Lab None recorded. ? ? Referral None recorded. ? ? Procedures None recorded. ? ? Surgeries None recorded. ? ? [facility] 12/29/2020 Medications Name Start Date ? ? Anusol-HC 2.5 % topical cream with perineal applicator ? APPLY A THIN LAYER TO THE AFFECTED AREA(S) BY TOPICAL ROUTE 2-4 TIMESDAILY ejypyuiygm-xqiuablyupnaq-ccimdebz 50 mg-300 mg-40 mg c apsule ? Take 1 capsule every 4 hours by oral route.
--- OUTSIDE RECORDS SUMMARY | 2020-12-29 14:33 | XMS_ITS | Encounter Summary ---
:1990 Author Reason for Visit None recorded. Assessment and Plan 1. Pre-existing maternal disease complicating ? US, obstetric, follow-up ? US, obstetric, biophysical profile + non-stress test Discussion Note: None recorded.Patient educational [...] None recorded. ? ? Imaging US, Obstetric, [facility] Follow-up 12/23/2020 ? US, Obstetric, [facility] Biophysical Profile + 12/23/2020 Non-stress Test Medications Name Start Date ? ? Anusol-HC 2.5 % topical cream with perineal applicator ? APPLY A THIN LAYER TO THE AFFECTED AREA(S) BY MADELIN
--- OUTSIDE RECORDS SUMMARY | 2020-12-29 14:33 | XMS_ITS | Encounter Summary ---
:1990 Author Reason for Visit OB visit 37wks Assessment and Plan 1. Routine care Discussion [...] AFFECTED AREA(S) BY TOPICAL ROUTE 2-4 TIMESDAILY nbdgatfkwk-xsofivvgbhoiw-mktzjjnp 50 mg-300 mg-40 mg c apsule ? Take 1 capsule every 4 hours by oral route. ? sertraline 50 mg tablet ? Take 1 tablet(s) every day by oral route. Medications Administered None recorded. Vitals Height Weight BMI Blood Pressure 5 ft 3 in 213 lbs 37.7 kg/m2 (1) 143/84 mm[H g]
--- OUTSIDE RECORDS SUMMARY | 2020-12-29 14:33 | XMS_ITS | Encounter Summary ---
:1990 Author Reason for Visit None recorded. Assessment and Plan 1. Abnormal heart rate ? US, obstetric, biophysical profile + non-stress test Discussion Note: None recorded.Patient educational handouts: No information available. Plan of Care Reminders Provider Appointments Induction Rodol lindsey Castelan 12/30/2020 MD Monico 7:00AM ? Ob Routine Марина [place] interiano 01/05/2021 MD Cathy 11:30AM ? Ob Routine Марина [place] ere 01/12/2021 MD Cathy 10:30AM Lab None recorded. ? ? Referral None recorded. ? ? Procedures None recorded. ? ? Surgeries None recorded. ? ? Imaging US, Obstetric, [facility] Biophysical Profile + 12/19/2020 Non-stress Test Medications Name Start Date ? ? Anusol-HC 2.5 % topical cream with perineal applicator ? APPLY A THIN LAYER TO THE AFFECTED AREA(S) BY TOPICAL ROUTE 2-4 TIMESDAILY fzcaufshue-pwzqwqckfjgsi-rzsntkgp 50 mg-300 mg-40 mg c apsule ? Take 1 capsule every 4 hours by oral route. ? sertraline 50 mg tablet ?
--- OUTSIDE RECORDS SUMMARY | 2020-12-29 14:33 | XMS_ITS | Encounter Summary ---
:1990 Author Reason for Visit None recorded. Assessment and Plan 1. Pre-existing maternal disease complicating ? US, obstetric, biophysical profile + non-stress test Discussion Note: None recorded.Patient educational handouts: No information available. Plan of Care Reminders Provider Appointments Induction Rodol lindsey Castelan 12/30/2020 MD Monico 7:00AM ? Ob Routine Марина [place] interiano 01/05/2021 MD Cathy 11:30AM ? Ob Routine Марина [place] interiano 01/12/2021 MD Cathy 10:30AM Lab None recorded. ? ? Referral None recorded. ? ? Procedures None recorded. ? ? Surgeries None recorded. ? ? Imaging US, Obstetric, [facility] Biophysical Profile + 12/16/2020 Non-stress Test Medications Name Start Date ? ? Anusol-HC 2.5 % topical cream with perineal applicator ? APPLY A THIN LAYER TO THE AFFECTED AREA(S) BY TOPICAL ROUTE 2-4 TIMESDAILY wivmuykewk-olarpyxtxjycw-egoehobg 50 mg-300 mg-40 mg c apsule ? Take 1 capsule every 4 hours by oral route. ? sertraline 50 mg tablet
--- OUTSIDE RECORDS SUMMARY | 2020-12-29 14:34 | XMS_ITS | Encounter Summary ---
:1990 Author Reason for Visit OB visit Assessment and Plan Assessment Note Patient is ___weeks . Discu ssed plan. 1. Routine care 2. Crohn's disease This patient is a 29-year-old female who presents for follow-up on first trimester IUP . She has Crohn's disease. She has been referred to maternal- medicine for her Crohn's dis ease. She has a 7-week 4-day IUP today . An ultrasound was performed. We reviewed those results. She is doing well. She had a recent flare of her Crohn's . She is doing well now. We discussed vari ous aspects of care. We discuss ed monitoring / testing. She return in 5 weeks for initial OB . We talked about genetic screening. Discussion Note: None recorded.Patient educational handouts: No [...]
--- OUTSIDE RECORDS SUMMARY | 2020-12-29 14:34 | XMS_ITS | Encounter Summary ---
:1990 Author Reason for Visit OB visit OB [id number] EDC 01/06/2021 LMP 03/18/2020 Assessment and Plan 1. Routine care Discussion [...] AFFECTED AREA(S) BY TOPICAL ROUTE 2-4 TIMESDAILY xsshyemrmr-bomquyyspthcq-qgjmssgb 50 mg-300 mg-40 mg c apsule ? Take 1 capsule every 4 hours by oral route. ? sertraline 50 mg tablet ? Take 1 tablet(s) every day by oral route. Medications Administered None recorded. Vitals Height Weight BMI Blood Pressure 5 ft 3 in 207 lbs 36.7 kg/m2 117/73 mm[Hg] Resu
--- OUTSIDE RECORDS SUMMARY | 2020-12-29 14:34 | XMS_ITS | Encounter Summary ---
:1990 Author Reason for Visit OB visit OB [id number] EDC 01/06/2021 LMP 03/18/2020 Assessment and Plan Assessment Note Patient is _33__weeks . Dis cussed plan. 1. Routine care Discussion Note: None recorded.Patient [...] AFFECTED AREA(S) BY TOPICAL ROUTE 2-4 TIMESDAILY iruoadgwyl-gcshowsocoruw-xbopqetr 50 mg-300 mg-40 mg c apsule ? Take 1 capsule every 4 hours by oral route. ? sertraline 50 mg tablet ? Take 1 tablet(s) every day by oral route. Medications Administered None recorded. Vitals
[2020-12-29] MEDS: LACTATED RINGERS 1,000 ML 125 ML IV CONT ×2 (15:00→16:48)
[2020-12-29] MEDS: OXYTOCIN 30 UNITS/NS 500 ML 30 UNITS/500 ML BAG IV CONT (15:01)
[2020-12-29 15:21] LABS: Basophils Percent Auto 0.1 % (0.2-1.2); Eosinophils Absolute Auto 0.1 K/mm3 (0-0.3); Eosinophils Percent Auto 0.5 % (0-4.4); Hematocrit 37.9 % (37.0-47.0); Hemoglobin 12.6 g/dL (12.0-15.0); Immature Granulocyte Absolute 0.05 K/mm3 (0.00-0.031); Immature Granulocyte Percent A 0.4 % (0-0.5); Lymphocytes Absolute Auto 1.49 K/mm3 (0.9-3.2); Lymphocytes Percent Auto 13.2 % (18.3-44.2); Mean Corpuscular HGB Conc 33.2 g/dl (32-36); Mean Corpuscular Volume 87.1 fl (80-100); Mean Platelet Volume 10.1 fl (7.4-10.4); Monocytes Absolute Auto 0.5 K/mm3 (0.1-0.6); Monocytes Percent Auto 4.6 % (2.6-8.5); Neutrophils Absolute Auto 9.2 K/mm3 (1.3-6.7); Neutrophils Percent Auto 81.2 % (45.5-73.1); Platelet Count Result 187 k/mm3 (150-375); Red Blood Count 4.35 M/mm3 (4.2-5.4); Red Cell Distribution Width 13.8 % (11.5-14.5); White Blood Count 11.3 K/mm3 (4.5-10.0)
[2020-12-29 15:31] LABS: Alanine Aminotransferase 14 U/L (4-35); Albumin Level 3.5 g/dL (3.5-5.1); Alkaline Phosphatase 150 U/L (38-126); Anion Gap 11 mmol/L (8-16); Aspartate Amino Transferase 21 U/L (14-36); Bilirubin,Total 0.2 mg/dL (0.2-1.3); Blood Urea Nitrogen 11 mg/dL (7-17); Calcium 8.8 mg/dL (8.4-10.2); Carbon Dioxide 18 mmol/L (22-30); Chloride 108 mmol/L (98-107); Estimated CRCL calculation 124 ml/min; Estimated Glomerular Filt Rate > 60; Glucose 121 mg/dL (65-110); Potassium 3.9 mmol/L (3.4-5.0); Sodium 137 mmol/L (137-145); Uric Acid 5.5 mg/dL (2.5-7.5)
--- NOTE | 2020-12-29 16:52 | WPDANESEPPF ---
Anes - Initial Pre Proc Eval Procedure: labor epidural Date/Time: 12/29/20 16:52 Surgeon: Luis A Marc MD Pre Op Diagnosis: labor pain Pre Op Diagnosis: Induction of Labor Patient Data Age: 30 Gender: F Height: 1.73 m Weight: 96.5 kg Last Vital Signs Temp 36.5 C 12/29/20 14:47 Pulse 96 12/29/20 16:51 Resp 20 12/29/20 14:47 BP 127/75 12/29/20 16:51 Pulse Ox 99 12/29/20 16:47 Allergies Allergy/AdvReac Type Severity Reaction Status Date / Time No Known Allergies Allergy Verified 06/09/20 11:44 Home Medications Medication Instructions Recorded Confirmed Type Classic 1 tablet PO DAILY 10/08/20 12/29/20 History sertraline 100 mg PO DAILY 10/08/20 12/29/20 History valacyclovir [Valtrex] 500 mg PO DAILY 12/08/20 12/08/20 History Laboratory Tests 12/29/20 12/29/20 12/29/20 14:49 14:49 14:49 WBC 11.3 K/mm3 H K/mm3 (4.5-10.0) RBC 4.35 M/mm3 M/mm3 (4.2-5.4) Hgb 12.6 g/dL g/dL (12.0-15.0) Hct 37.9 % % (37.0-47.0) MCV 87.1 fl fl (80-100) MCH 29.0 pg pg (26-34) MCHC 33.2 g/dl g/dl (32-36) RDW 13.8 % % (11.5-14.5) Plt Count 187 k/mm3 k/mm3 (150-375) MPV 10.1 fl fl (7.4-10.4) Immature Gran % (Auto) 0.4 % % (0-0.5) Neut % (Auto) 81.2 % H % (45.5-73.1) Lymph % (Auto) 13.2 % L % (18.3-44.2) Banks % (Auto) 4.6 % % (2.6-8.5) Eos % (Auto) 0.5 % % (0-4.4) Baso % (Auto) 0.1 % L % (0.2-1.2) Lymph # (Auto) 1.49 K/mm3 K/mm3 (0.9-3.2) Banks # (Auto) 0.5 K/mm3 K/mm3 (0.1-0.6) Eos # (Auto) 0.1 K/mm3 K/mm3 (0-0.3) Baso # (Auto) 0.0 K/mm3 K/mm3 (0.0-0.1) Abs Immat Gran (auto) 0.05 K/mm3 H K/mm3 (0.00-0.031) Absolute Neuts (auto) 9.2 K/mm3 H K/mm3 (1.3-6.7) Absolute Nucleated RBC 0.0 K/mm3 K/mm3 (0.0-0.012) Nucleated RBC % 0.0 % % (0.0-0.2) Sodium Potassium Chloride Carbon Dioxide Anion Gap BUN Creatinine Estim Creat Clear Calc Estimated GFR Glucose Uric Acid Calcium Total Bilirubin AST ALT Alkaline Phosphatase Total Protein Albumin RPR Pending Blood Type O Positive Antibody Screen Negative 12/29/20 14:49 WBC RBC Hgb Hct MCV MCH MCHC RDW Plt Count MPV Immature Gran % (Auto) Neut % (Auto) Lymph % (Auto) Banks % (Auto) Eos % (Auto) Baso % (Auto) Lymph # (Auto) Banks # (Auto) Eos # (Auto) Baso # (Auto) Abs Immat Gran (auto) Absolute Neuts (auto) Absolute Nucleated RBC Nucleated RBC % Sodium 137 mmol/L mmol/L (137-145) Potassium 3.9 mmol/L mmol/L (3.4-5.0) Chloride 108 mmol/L H mmol/L (98-107) Carbon Dioxide 18 mmol/L L mmol/L (22-30) Anion Gap 11 mmol/L mmol/L (8-16) BUN 11 mg/dL mg/dL (7-17) Creatinine 0.70 mg/dL mg/dL (0.7-1.0) Estim Creat Clear Calc 124 ml/min ml/min Estimated GFR > 60 (59 - ) Glucose 121 mg/dL H mg/dL (65-110) Uric Acid 5.5 mg/dL mg/dL (2.5-7.5) Calcium 8.8 mg/dL mg/dL (8.4-10.2) Total Bilirubin 0.2 mg/dL mg/dL (0.2-1.3) AST 21 U/L U/L (14-36) ALT 14 U/L U/L (4-35) Alkaline Phosphatase 150 U/L H U/L (38-126) Total Protein 7.0 g/dL g/dL (6.3-8.2) Albumin 3.5 g/dL g/dL (3.5-5.1) RPR Blood Type Antibody Screen Patient hx anesthesia problems: none Family hx anesthesia problems: none [facility] Past Medical History Medical History (Reviewed 12/29/20 @ 16:53 by Edmond
--- NOTE | 2020-12-29 17:49 | WPDOBADMIT ---
Obstetrics - Admit Note Admission Note: 30 y/o @ 38w6d here for induction d/t GHTN. Cervix /-2 AROM moderate amount of clear odorless fluid Anticipate record reviewed. No pertinent additions to the history and/or any subsequent changes in the physical findings that are not consistent with the expected course of the were found. Additions to the history and/or subsequent changes in the physical findings follow. None.
--- NOTE | 2020-12-29 21:38 | PM.OBPRVD ---
OB - Delivery Note Procedure Delivery date: 12/29/20 events: Induced HTN Intrapartal events: None Induction method: per pitocin protocol Delivery monitor: external FHT and external uterine Route of delivery: Episiotomy description: None Laceration Description: None Quantitative Blood Loss (ml): 37 Anesthesia type: Epidural Narrative: Mother and baby in stable condition. Cord gasses collected and handed off to staff. Baby Date of : 12/29/20 Time of : 21:17 Weeks of gestation at delivery: 38 gender: Male Weight (pounds): 7 Weight (ounces): 8 presentation: vertex position: Left Occiput Anterior Placenta delivery description: Spontaneous cord vessel description: Delayed Cord Clamping score one minute: 9 score five minutes: 9
[2020-12-29] MEDS: OXYTOCIN 30 UNITS/NS 500 ML 30 UNITS/500 ML BAG 125 UNITS IV CONT (21:52)
[2020-12-30] VITALS (9 sets, daily range): BP systolic 101–121; BP diastolic 62–73; PULSE 76–105; RESP 15–20; TEMP 36.4–37; O2SAT 96–99
[2020-12-30] MEDS: WITCH HAZEL 40 PADS 1 PAD TOPICAL (00:05)
[2020-12-30] MEDS: BENZOCAINE 20% AER SPR (*SP) 56 GM CAN 1 SPRAY TOPICAL (00:05)
--- NOTE | 2020-12-30 00:14 | OBPPTRN ---
Patient transferred to post room #287 via wheelchair. Support person present. Oriented to unit, room, information board, rooming in, admission packet and security measures. Patient verbalizes understanding.
[2020-12-30] MEDS: ACETAMINOPHEN 325 MG TABLET 650 MG PO ×2 (00:43→08:55)
[2020-12-30] MEDS: IBUPROFEN 600 MG TABLET PO ×3 (02:39→23:01)
[2020-12-30 05:19] LABS: Hematocrit 35.2 % (37.0-47.0); Hemoglobin 11.7 g/dL (12.0-15.0)
--- NOTE | 2020-12-30 07:46 | PM.OBPNVD ---
OB - PN: Subj Subjective Date/time seen: 12/30/20 07:46 Patient comments: no complaints baby status: doing well OB - PN: Obj Data Labs CBC & Chem 7: 12/30/20 05:06 12/29/20 14:49 Labs: Laboratory Results - last 24 hr 12/29/20 12/29/20 12/29/20 14:49 14:49 14:49 WBC 11.3 H RBC 4.35 Hgb 12.6 Hct 37.9 MCV 87.1 MCH 29.0 MCHC 33.2 RDW 13.8 Plt Count 187 MPV 10.1 Immature Gran % (Auto) 0.4 Neut % (Auto) 81.2 H Lymph % (Auto) 13.2 L [place] % (Auto) 4.6 Eos % (Auto) 0.5 Baso % (Auto) 0.1 L Lymph # (Auto) 1.49 [place] # (Auto) 0.5 Eos # (Auto) 0.1 Baso # (Auto) 0.0 Abs Immat Gran (auto) 0.05 H Absolute Neuts (auto) 9.2 H Absolute Nucleated RBC 0.0 Nucleated RBC % 0.0 Sodium 137 Potassium 3.9 Chloride 108 H Carbon Dioxide 18 L Anion Gap 11 BUN 11 Creatinine 0.70 Estim Creat Clear Calc 124 Estimated GFR > 60 Glucose 121 H Uric Acid 5.5 Calcium 8.8 Total Bilirubin 0.2 AST 21 ALT 14 Alkaline Phosphatase 150 H Total Protein 7.0 Albumin 3.5 Blood Type O Positive Antibody Screen Negative 12/30/20 05:06 WBC RBC Hgb 11.7 L Hct 35.2 L MCV MCH MCHC RDW Plt Count MPV Immature Gran % (Auto) Neut % (Auto) Lymph % (Auto) [place] % (Auto) Eos % (Auto) Baso % (Auto) Lymph # (Auto) [place] # (Auto) Eos # (Auto) Baso # (Auto) Abs Immat Gran (auto) Absolute Neuts (auto) Absolute Nucleated RBC Nucleated RBC % Sodium Potassium Chloride Carbon Dioxide Anion Gap BUN Creatinine Estim Creat Clear Calc Estimated GFR Glucose Uric Acid Calcium Total Bilirubin AST ALT Alkaline Phosphatase Total Protein Albumin Blood Type Antibody Screen OB - PN A/P Plan day: 1 Plan: routine care Time Spent With Patient Time: Total time spent is greater than 50% in coordination of care (as documented) at patient's floor/unit and/or counseling patient: Time with patient: less than 15 minutes Review of Systems Review of Systems: All systems reviewed & are unremarkable except as noted in HPI and below Exam Narrative: Fundus firm and vaginal flow controlled. No lower ext redness, warmth, or edema. Negative homans. Denies h/a, v/d or e/p. Reflexes normal. Const: General: comfortable Chest: Breast/axilla inspection: normal inspection of the breasts Resp: Effort & Inspection: normal respiratory effort Cardio: Rate: regular rate GI: GI Palp: Yes Soft to palpation Psych: Appearance: grossly normal Affect: normal affect Attitude: cooperative Thought content: Yes Normal thought content present Judgement: Good judgement present (Psych)
[2020-12-30 09:46] LABS: Rapid Plasma Reagin Non-Reactive (NonReactive)
--- NOTE | 2020-12-30 11:00 | WPDANLDPN2 ---
Anes-Prog Note L&D Date/Time: 12/30/20 11:00 Comfortable throughout: labor and delivery Neuraxial method: epidural Epidural/Spinal procedure site: clean & non-tender Neuro status: Neuro function grossly intact. Cardiovascular status: normal Respiratory status: normal Airway patency: baseline Mental status: baseline Post-Op hydration status: normal Vital Signs: Last Vital Signs Temp 36.9 C 12/30/20 07:45 Pulse 76 12/30/20 08:45 Resp 16 12/30/20 08:45 BP 110/63 12/30/20 07:45 Pulse Ox 97 12/30/20 08:45 Pain score (VAS): 0 I/O: Intake & Output 12/29/20 12/30/20 12/30/20 23:59 07:59 15:59 Intake Total 1000 400 Output Total 37 171 Balance 963 229 Post-procedural complaints: none Patient feedback: Patient satisfied with anesthetic care.
[2020-12-30] MEDS: MULTIVIT/MIN/PREN/FOL AC/IRON TABLET 1 TAB PO (11:19)
--- NOTE | 2020-12-30 14:00 | PC.NURSE ---
RN requested assist with feeding. Attempt to consult with pt., earlier in day X 3. Pt. was on the phone or resting. Consulted with patient, mother reports infant has been sleepy since circumcision and has not latched for 6 hours. Reviewed infant feeding cues, frequencies, duration of feedings, feeding elimination flow sheet, and signs of adequate intake. Demonstrated stimulation techniques to wake infant for feeding. Assisted with to breast. Reviewed positioning/alignment in cross cradle, holding breast in U hold and guided asymmetrical latch on. was sleepy and made little effort to latch. Once latched infant nursed eagerly with short bursts followed with long pausing. Mother reports infant is sleepy due to circumcision. Reviewed infant needs to wake to feed. Mother hesitant to wake . Attempt for 20+ minutes without effective feeding. Suggested mother pump and give EBM. Mother states will wake to feed when ready. Reviewed newborns need to be awoken to feed every 3 hours, feeding before if feeding cues noted. Assisted mother with pumping using her own Medela double electric pump. Reviewed breast pump care and usage, pumping schedule, nipple care, and collection and storage of breast milk. Assessed patient for correct flange size, placement and draw. Patient verbalizes and demonstrates understanding of instructions. Suggested mother use 27mm flange she prefers 24mm.
[2020-12-31 05:05] VITALS: BP 132/78
--- NOTE | 2020-12-31 07:36 | PM.OBPNVD ---
OB - PN: Subj Subjective Date/time seen: 12/31/20 07:36 Patient comments: no complaints baby status: doing well OB - PN: Obj Data Labs CBC & Chem 7: 12/30/20 05:06 12/29/20 14:49 Labs: Laboratory Results - last 24 hr 12/29/20 14:49 RPR Non-reactive OB - PN A/P Plan day: 2 Plan: routine care and discharge home Time Spent With Patient Time: Total time spent is greater than 50% in coordination of care (as documented) at patient's floor/unit and/or counseling patient: Review of Systems Review of Systems: All systems reviewed & are unremarkable except as noted in HPI and below Exam Const: General: cooperative
--- NOTE | 2020-12-31 07:38 | PM.OBDSVD ---
DS: Admitting Diagnosis Discharge Date 12/31/2020 Admitting Diagnosis IOL OB - DS: Summary OB Procedures : None OB Procedures Intrapartum: Spontaneous Vag Delivery OB Procedures: : None Time Spent with Patient Time attestation: Total time spent providing and/or coordinating discharge services: DS: Data Data Completed and Pending Pending studies at discharge: Pending at discharge 12/29/20 21:58 Surgical [PTH] Routine Labs on day of discharge: Labs from last 24 hours 12/29/20 14:49 RPR Non-reactive Discharge Plan Discharge Attending physician on discharge: Luis A Marc Consulting providers: Melodie Jenkins ; Shanita Negrete Discharging Clinician: Shanita Negrete Patient Disposition: Home, Self-Care Activity: pelvic rest Diet: regular Discharge Instructions: Education: Mom and Baby Guide Given to: Mother Follow-Up: Call your delivering provider's office for an appointment to be seen in: 1 Week Mom and baby [facility] for the follow-up appointment. Appointment Date/Time: January 03, 2021 at 10:00 am What to expect at your follow-up visit: Blood Pressure Check Physical Assessment Call [phone] if you are unable to keep your appointment time. BREAST CARE: * Wear a snug supportive bra. * For engorgement discomfort: Breast Feeding: * Apply warm moist washcloths * Express milk as needed to relieve engorgement * Wear loose clothing * For sore nipples: * Identify correct latch-on * Apply warm moist washcloths before and after nursing * Air dry nipples after nursing * May apply Lansinoh cream to nipples EPISIOTOMY/PERINEAL CARE: * Until bleeding stops, use your shalom bottle after urinating * Change your pad frequently throughout the day * You may take sitz baths several times a day (fill your bathtub with warm water and soak for 20 minutes.) Do NOT bathe in the water * No tub baths until seen by your physician - You may shower ACTIVITY: * Rest as much as possible. * Do not exercise or lift anything heavier than your baby (such as laundry or other children.) * Avoid stairs or driving as much as possible. * Do not put anything into the vagina. No douching, tampons, or sexual activity until seen by physician. NOTIFY PHYSICIAN IF YOU HAVE ANY QUESTIONS OR IF ANY OF THE FOLLOWING SYMPTOMS OCCUR: * If your perineum becomes red, swollen, or more painful than what you have experienced in the hospital. * If your vaginal bleeding becomes foul smelling. * If your vaginal bleeding becomes more heavy than a period or if your bleeding changes from pink to bright red. However, you may pass an occasional walnut-sized clot once or twice for the first week . * If you experience a sharp, shooting pain in you calves. * If you discover a hard, reddened area on your breast or if you experience flu-like symptoms. *Temperature of 100.4 or higher. DIET: * Eat regular, well-balanced meals. * Drink plenty of fluids daily. If , drink to thirst. Stand Alone Forms: General Discharge Information Follow-up/Referrals: Melodie Jenkins CNM [Certified Nurse Account Supervisor] - 4 Weeks Discharge Medications: Continued sertraline 50 mg tablet 100 mg PO DAILY RF: 0 Classic 28 mg iron- 800 mcg Tablet 1 tablet PO DAILY RF: 0 Discontinued valacyclovir [Valtrex] 500 mg Tablet 500 mg PO DAILY RF: 0 Date of admission: 12/29/20 14:24 Primary Care Provider: Rach,Enoch Conroy Admitting Provider: Luis A Marc Attending physician on admission: Luis A Marc Condition: Stable
[2020-12-31 08:15] VITALS: BP 127/83; PULSE 93; RESP 16; TEMP 36.4; O2SAT 100
--- NOTE | 2020-12-31 09:30 | PC.NURSE ---
Mother verbalizes she is able to independently latch with appropriate positioning/alignment. She denies any nipple discomfort. Mother will supplement if infant has a short feeding or she feels he is not satisfied. had one 6+ hour without feeding during the night, reviewed to wake by 4 hours until seen by ICP at 1 week. Infant has had a few effective feedings in the past 24 hours, and is currently meeting outcomes for weight, output, jaundice and feeding frequencies. Mother states she feels confident to continue current feeding plan of supplementing after if she feels requires. Mother continues to pump at times after some feedings. Discussed stimulation and milk supply. Mother is hesitant for assist or education. Stressed to wake to feed every three hours. Reviewed transition to breast milk, signs of adequate intake, and engorgement/relief. Instructed to call ICP if intake/output less than required. Reviewed regular medications mother is taking. Information provided per Nicole. Reviewed community resources on the [facility] and in the Mom/Baby guide. Information on outpatient services provided. Mother has no further questions at this time.
[2020-12-31] MEDS: DOCUSATE SODIUM 100 MG CAPSULE PO (10:25)
[2020-12-31] MEDS: IBUPROFEN 600 MG TABLET PO (10:26)
[2020-12-31] MEDS: MULTIVIT/MIN/PREN/FOL AC/IRON TABLET 1 TAB PO (10:26)
[2021-01-03 10:57] VITALS: BP 118/72; PULSE 80; RESP 20; TEMP 36.8; O2SAT 100
== END 2020-12-31 12:33 | disposition home or self-care (01) | DRG 806 ==
LOC: ANHLDR 14:29 → ANHOB2 12-30 00:14
PROVIDERS: Advanced Practice Midwife; Admitting Provider Obstetrics & Gynecology; PCP Internal Medicine; Visit Provider Obstetrics & Gynecology
DX: O13.4 Gestational [pregnancy-induced] hypertension without significant proteinuria, complicating childbirth (principal); K50.90 Crohn's disease, unspecified, without complications; Z37.0 Single live birth; O98.32 Other infections with a predominantly sexual mode of transmission complicating childbirth; Z3A.38 38 weeks gestation of pregnancy; O36.8330 Maternal care for abnormalities of the fetal heart rate or rhythm, third trimester, not applicable or unspecified; O99.62 Diseases of the digestive system complicating childbirth; A60.00 Herpesviral infection of urogenital system, unspecified
CPT/HCPCS: 36415; 80053; 84550; 85014; 85018; 85025; 86592; 86850; 86900; 86901; 88307; A9270; J2590; J7120

== ENCOUNTER → 2021-02-07 01:33 | Outpatient (CLI) | payer OTHER, SELFPAY ==
[2021-02-07 18:07] LABS: SARS-CoV-2 RNA PCR Negative
== END ==
PROVIDERS: PCP Internal Medicine; Visit Provider Obstetrics & Gynecology
DX: Z01.812 Encounter for preprocedural laboratory examination (principal); Z20.822 Contact with and (suspected) exposure to COVID-19
CPT/HCPCS: C9803; U0003; U0005

== ENCOUNTER 2021-10-07 15:13 | Observation (INO) | payer OTHER, SELFPAY ==
[2021-10-07] VITALS (16 sets, daily range): BP systolic 112–137; BP diastolic 55–104; PULSE 76–92; RESP 16–18; TEMP 36.4–37.1; O2SAT 97–100; BMI 32.1
--- NOTE | ~2021-10-07 | CT_ITS ---
EXAMINATION: CT abdomen pelvis wo con DATE: 10/07/2021 16:50 INDICATION: Abdominal pain since last night TECHNIQUE: Computed tomography (CT) of the abdomen and pelvis was performed without intravenous contr ast. Automated exposure control and iterative reconstruction technique were employed. Exam dose: 850 .47 mGy-cm total exam DLP. COMPARISON: June 14, 2018 CT abdomen pelvis FINDINGS: The lung bases are clear of infiltrate or consolidation. Normal heart size. No pericardial or pleural effusion. The liver, gallbladder, bile ducts, spleen, pancreas pancreatic duct are unremarkable. The gallbladde r is present. No gallbladder wall thickening or pericholecystic fluid or fat stranding is noted. No renal mass lesion or urinary tract calculus or hydroureteronephrosis. The uterus, adnexal areas an d urinary bladder are unremarkable. Normal caliber of the abdominal aorta. No intraperitoneal or retroperitoneal or pelvic mass lesion or adenopathy or ascites. Minimal fluid in the posterior cul-de-sac is likely physiologic. Small sliding hiatal hernia. There is partial small bowel obstruction at the ileocolic anastomosis in the left upper quadrant. The re is fecal-like content of the distal small bowel just proximal to the ileocolic anastomosis in the right upper quadrant, with mild small bowel dilatation up to approximately 3.2 cm diameter, with nume bernardino fluid containing distended small bowel segments and occasional small bowel air-fluid levels. Small fat-containing umbilical hernia. No suspicious osteolytic or osteoblastic lesions. IMPRESSION: Partial small bowel obstruction at ileocolonic anastomosis in the left upper quadrant Small sliding hiatal hernia Reviewed, dictated and finalized at [facility] Reviewed, dictated and finalized at [facility].
--- NOTE | ~2021-10-07 | XR_ITS ---
EXAMINATION: XR UGI water soluble w sbs DATE: 10/10/2021 11:19 INDICATION: Crohn's disease, partial small bowel obstruction TECHNIQUE: The patient drank water-soluble contrast. Conventional supine abdomen radiographs and fluo roscopy of the esophagus, stomach, and small bowel were performed. Fluoroscopy exposure time was 2.6 minutes. The DAP for this procedure was 72.112 Gycm2. COMPARISON: 06/15/2018 FINDINGS: UPPER GASTROINTESTINAL SERIES: There is no mass or stricture of the esophagus. Esophageal motility is normal. There is no hiatal her ronak. There was no gastroesophageal reflux with provocative maneuvers. The stomach shows a normal fold ing pattern.] SMALL BOWEL SERIES: There are changes of right hemicolectomy. Transit time from the stomach to proximal colon was approxi mately one hour. There is normal caliber and mucosal fold pattern throughout the small bowel. No teth ering or abnormal mass effect observed upon the small bowel with real-time fluoroscopy. IMPRESSION: 1. Surgical changes without evidence of bowel obstruction. Reviewed, dictated and finalized at [facility].
--- NOTE | 2021-10-07 15:36 | ED.ABDPAIN ---
HPI - Abdominal Pain General Chief Complaint: Abdominal Pain Stated Complaint: ABD Pain Time Seen by Provider: 10/07/21 15:28 History of Present Illness HPI narrative: 31-year-old female with a history of Crohn's disease presents to the emergency room with a cute onset of generalized abdominal pain and nausea. Patient states that she has been diagnosed with Crohn's since 2008, has had a partial bowel resection 6 years later. Patient states that she has had 2 Crohn's flares this year, neither requiring hospitalization. Patient states the pain started abruptly this morning. Patient denies any diarrhea or constipation and dysuria. Patient states she is flatulent at this time. Patient denies fever Related Data Home Medications Medication Instructions Recorded Confirmed vits no.[id number]-ferrous fum 1 tablet PO DAILY 10/08/20 06/08/21 28 mg iron-folic acid 800 mcg tablet (Classic ) Allergies Allergy/AdvReac Type Severity Reaction Status Date / Time No Known Allergies Allergy Verified 10/07/21 17:58 Review of Systems Review of Systems: CONSTITUTIONAL: Denies fever, chills, or sweats. EYES: Denies visual changes, redness, or discharge. ENT: Denies rhinorrhea, congestion, sore throat, or otalgia. CARDIOVASCULAR: Denies chest pain, palpitations, or edema. RESPIRATORY: Denies cough or dyspnea. GASTROINTESTINAL: Reports abdominal pain, nausea, vomiting GENITOURINARY: Denies dysuria or hematuria. SKIN: Denies rash or itching. MUSCULOSKELETAL: Denies back pain, joint pain, or myalgia. NEUROLOGIC: Denies headache, numbness, dizziness, or weakness. PSYCHIATRIC: Denies anxiety or depression. [facility] Past Medical History Medical History Anxiety BMI 32.0-32.9,adult Crohn's disease Depression Eczema Hypersomnia Obesity Screening for diabetes mellitus Snoring Family History Family History Father Hypertension Mother Hypertension COPD (chronic obstructive pulmonary disease) Heart disease Grandparent Cerebrovascular accident Social History Social History Smoking status: Never smoker Second hand tobacco smoke exposure: No Alcohol intake: never Substance use: former Substance use type: marijuana Last use: 2019 Gender identity (if verbalized by the patient): Female Sexual Orientation (if Verbalized by the Patient): Straight or Heterosexual Spiritual care concerns: No Exam Narrative: GENERAL: Well-appearing, well-nourished, and in no acute distress. HEAD: Normocephalic, atraumatic. EYES: PERRLA and EOMI. CHEST: Clear to auscultation. No respiratory distress. No wheezes rales or rhonchi HEART: Regular rate and rhythm. No murmur heard. Normal peripheral pulses. ABDOMEN: Soft, diffuse tenderness, nondistended, active bowel sounds EXTREMITIES: Normal range of motion. No edema. SKIN: Warm, dry, no rash. NEURO: No focal deficits. Alert and oriented x3. PSYCH: Normal mood and affect. Course Vital Signs Vital signs: Vital Signs Temperature 36.4 C 10/07/21 15:18 Pulse Rate 88 10/07/21 15:18 Respiratory Rate 18 10/07/21 15:18 Blood Pressure 132/104 H 10/07/21 15:18 Pulse Oximetry 100 10/07/21 15:18 Oxygen Delivery Room Air 10/07/21 15:18 Temperature 36.4 C 10/07/21 15:18 Pulse Rate 88 10/07/21 15:18 Respiratory Rate 18 10/07/21 15:18 Blood Pressure 132/104 H 10/07/21 15:18 Pulse Oximetry 100 10/07/21 15:18 Oxygen Delivery Room Air 10/07/21 15:18 MDM - Abdominal Pain MDM Narrative Medical decision making narrative: 31-year-old female presented with complaints of abdominal pain. Exam showed no peritoneal signs. CT scan shows evidence of partial small bowel obstruction. Dr. Nidhi Marrero was consulted. Patient has a history of Crohn's disease and was given 25 mg
[2021-10-07 15:41] LABS: Alanine Aminotransferase 16 U/L (6-35); Albumin Level 4.7 g/dL (3.5-5.1); Alkaline Phosphatase 76 U/L (38-126); Anion Gap 8 mmol/L (8-16); Aspartate Amino Transferase 24 U/L (14-36); Bilirubin,Total 0.5 mg/dL (0.2-1.3); Blood Urea Nitrogen 16 mg/dL (7-17); Calcium 9.3 mg/dL (8.4-10.2); Carbon Dioxide 22 mmol/L (22-30); Chloride 106 mmol/L (98-107); Estimated CRCL calculation 122 ml/min; Estimated Glomerular Filt Rate > 60; Glucose 100 mg/dL (65-110); Lipase 61 U/L (23-300); Potassium 4.7 mmol/L (3.4-5.0); Sodium 136 mmol/L (137-145)
[2021-10-07] MEDS: methylPREDNISolone SOD SUCC 125 MG VIAL IV PUSH (16:17)
[2021-10-07] MEDS: ONDANSETRON INJ 4 MG/2 ML VIAL IV PUSH (16:17)
[2021-10-07] MEDS: SODIUM CHLORIDE 0.9% IV 1,000 ML 999 ML IV CONT (16:18)
[2021-10-07 16:29] LABS: Basophils Percent Auto 0.2 % (0.2-1.2); Eosinophils Percent Auto 0.2 % (0-4.4); Hematocrit 42.8 % (37.0-47.0); Hemoglobin 14.5 g/dL (12.0-15.0); Immature Granulocyte Absolute 0.05 K/mm3 (0.00-0.031); Immature Granulocyte Percent A 0.4 % (0-0.5); Lymphocytes Absolute Auto 1.05 K/mm3 (0.9-3.2); Lymphocytes Percent Auto 7.9 % (18.3-44.2); Mean Corpuscular HGB Conc 33.9 g/dl (32-36); Mean Corpuscular Hemoglobin 29.5 pg (26-34); Mean Platelet Volume 9.8 fl (7.4-10.4); Monocytes Absolute Auto 0.6 K/mm3 (0.1-0.6); Monocytes Percent Auto 4.2 % (2.6-8.5); Neutrophils Absolute Auto 11.6 K/mm3 (1.3-6.7); Neutrophils Percent Auto 87.1 % (45.5-73.1); Platelet Count Result 234 k/mm3 (150-375); Red Blood Count 4.92 M/mm3 (4.2-5.4); Red Cell Distribution Width 12.7 % (11.5-14.5); White Blood Count 13.3 K/mm3 (4.5-10.0)
[2021-10-07 16:47] LABS: Appearance Urine Slightly Cloudy (Clear); Bilirubin Urine Negative (Negative); Color Urine Yellow (Yellow); Glucose Urine UA Negative (Negative); Ketones Urine Negative (Negative); Leukocyte Esterase Ur Negative LEU/UL (Negative); Nitrate Urine Negative (Negative); Protein Urine Trace mg/dL (Negative); Specific Grav Ur >= 1.030 (1.001-1.035); Urobilinogen Urine 0.2 mg/dL (<2.0)
[2021-10-07 16:54] LABS: Add Urine Microscopic? YES; Blood Urine Trace-Intact (Negative)
[2021-10-07 16:55] LABS: Amorphous Sediment Urine Few; Mucus Urine Heavy /lpf; Squamous Epithelial Cell Urine Many /hpf (Few); WBC Urine 0-3 /hpf
[2021-10-07] MEDS: MORPHINE SULFATE (*CRX) 4 MG/ML INJ IV PUSH ×2 (17:55→23:08)
[2021-10-07] MEDS: SODIUM CHLORIDE 0.9% IV 1,000 ML 125 ML IV CONT (17:55)
--- NOTE | 2021-10-07 18:35 | PC.NURSE ---
patient transferred up to to floor with IVF infusing
--- NOTE | 2021-10-07 18:50 | ADMGEN ---
This patient, Agnieszka Sykes, was admitted to Medical Room 342-01. Patient/family oriented to hospital policies and general routines including ID bracelet, bed and alarms, visiting hours, pain management, procedures, bathroom and other care routines, personal items, smoking policy, room service/diet, and visiting hours. Information on how to activate the Rapid Response Team has been discussed. Patient/Family are encouraged to report perceived risks to care and to ask questions if they do not understand what they are told or what they should do.
--- NOTE | 2021-10-07 21:52 | PM.IMHP ---
H&P: HPI History of Present Illness Date/Time: Patient was placed observation status for expected length of stay less than 23 hours for management, will plan to re-evaluate tomorrow for improvement. 10/07/21 21:52 Chief Complaint: Abdominal pain Narrative: Ms. Sykes is a 31-year-old female who presented emergency room with complaints of abdominal pain that started last evening prior to dinner. Patient states that she has a known history of Crohn's disease and had a bowel resection secondary to her Crohn's disease and has been doing very well since that point time. Patient states she has not been placed on any medications secondary to how well she was doing. Patient states that last evening she began having abdominal pain before dinner and then try to eat a small amount urine did not feel very well. Patient states that she did vomit once today. Patient states she has had quite a bit of nausea but has only vomited once. Patient states that she typically has bowel movements every day and she had a normal bowel movement yesterday, but has not had a bowel movement today. Patient denies any fever chills. Patient denies any dysuria, hematuria, frequency, or urgency. Upon evaluation in emergency room patient underwent CT scan which showed partial small-bowel obstruction at the ileocolonic anastomosis in the left upper quadrant. Small sliding hiatal hernia. Patient states she takes no medications at home. Patient states her only history is Crohn's disease with a colon resection. Patient states she has had 3 children all vaginally. Review of Systems Review of Systems: A 12 point review of systems was completed patient all pertinent positive and negative per HPI the remainder are unremarkable. [facility] Past Medical History Medical History Anxiety BMI 32.0-32.9,adult Crohn's disease Depression Eczema Hypersomnia Obesity Screening for diabetes mellitus Snoring Family History Family History Father Hypertension Mother Hypertension COPD (chronic obstructive pulmonary disease) Heart disease Grandparent Cerebrovascular accident Social History Social History Smoking status: Never smoker Second hand tobacco smoke exposure: No Alcohol intake: current Drinks per week: 1 Substance use: never Substance use type: marijuana Last use: 2018 Gender identity (if verbalized by the patient): Female Sexual Orientation (if Verbalized by the Patient): Straight or Heterosexual Spiritual care concerns: No Meds Home Medications and Allergies Allergies Allergy/AdvReac Type Severity Reaction Status Date / Time No Known Allergies Allergy Verified 10/07/21 17:58 Vital Signs Vital Signs - 24 hr 10/07/21 15:18 10/07/21 15:31 10/07/21 15:32 Temperature 36.4 C Pulse Rate 88 Respiratory Rate 18 Blood Pressure 132/104 H 137/80 Pulse Oximetry 100 100 100 Oxygen Delivery Room Air 10/07/21 15:46 10/07/21 15:47 10/07/21 16:20 Temperature Pulse Rate Respiratory Rate Blood Pressure 127/83 Pulse Oximetry 98 98 100 Oxygen Delivery 10/07/21 16:38 10/07/21 17:22 10/07/21 17:30 Temperature Pulse Rate Respiratory Rate Blood Pressure Pulse Oximetry 100 97 99 Oxygen Delivery 10/07/21 17:47 10/07/21 18:10 10/07/21 18:15 Temperature Pulse Rate Respiratory Rate Blood Pressure Pulse Oximetry 100 99 97 Oxygen Delivery 10/07/21 18:29 10/07/21 18:51 10/07/21 19:42 Temperature 36.7 C Pulse Rate 80 92 92 Respiratory Rate 16 18 18 Blood Pressure 120/72 112/55 L Pulse Oximetry 98 99 99 Oxygen Delivery Room Air 10/07/21 20:45 Temperature 37.1 C Pulse Rate 76 Respiratory Rate 16 Blood Pressure 117/72 Pulse Oximetry 97 Oxygen Delivery Exam Narrative: Constitutional: Pat
[2021-10-08] MEDS: SODIUM CHLORIDE 0.9% IV 1,000 ML 125 ML IV CONT ×3 (02:47→21:30)
[2021-10-08] MEDS: methylPREDNISolone SOD SUCC 40 MG VIAL IV PUSH ×4 (02:47→18:23)
[2021-10-08 06:00] VITALS: BP 116/67; PULSE 89; RESP 16; TEMP 36.8; O2SAT 98
[2021-10-08 06:36] LABS: Basophils Percent Auto 0.1 % (0.2-1.2); Hematocrit 41.5 % (37.0-47.0); Hemoglobin 13.9 g/dL (12.0-15.0); Immature Granulocyte Absolute 0.06 K/mm3 (0.00-0.031); Immature Granulocyte Percent A 0.4 % (0-0.5); Lymphocytes Absolute Auto 0.78 K/mm3 (0.9-3.2); Lymphocytes Percent Auto 4.9 % (18.3-44.2); Mean Corpuscular HGB Conc 33.5 g/dl (32-36); Mean Corpuscular Hemoglobin 29.1 pg (26-34); Mean Corpuscular Volume 86.8 fl (80-100); Mean Platelet Volume 9.5 fl (7.4-10.4); Monocytes Absolute Auto 0.3 K/mm3 (0.1-0.6); Neutrophils Absolute Auto 14.8 K/mm3 (1.3-6.7); Neutrophils Percent Auto 92.6 % (45.5-73.1); Platelet Count Result 242 k/mm3 (150-375); Red Blood Count 4.78 M/mm3 (4.2-5.4); Red Cell Distribution Width 12.6 % (11.5-14.5)
[2021-10-08 06:47] LABS: Alanine Aminotransferase 16 U/L (6-35); Albumin Level 4.1 g/dL (3.5-5.1); Alkaline Phosphatase 68 U/L (38-126); Anion Gap 7 mmol/L (8-16); Aspartate Amino Transferase 21 U/L (14-36); Bilirubin,Total 0.4 mg/dL (0.2-1.3); Blood Urea Nitrogen 14 mg/dL (7-17); Calcium 8.3 mg/dL (8.4-10.2); Carbon Dioxide 22 mmol/L (22-30); Chloride 107 mmol/L (98-107); Estimated CRCL calculation 123 ml/min; Estimated Glomerular Filt Rate > 60; Glucose 137 mg/dL (65-110); Magnesium 2.1 mg/dL (1.6-2.3); Potassium 4.4 mmol/L (3.4-5.0); Sodium 136 mmol/L (137-145)
--- NOTE | 2021-10-08 11:15 | PM.IMPN ---
Progress Note: A&P Assessment and Plan (1) Partial small bowel obstruction: Code(s): K56.600 - Partial intestinal obstruction, unspecified as to cause Status: Acute Assessment and Plan: 1 episode of vomiting reported CT shows partial bowel obstruction at the ileocolonic anastomosis in the left upper quadrant Methylprednisone 40mg IV Q6H Gastroenterology consulted No indication for NG tube at this time NPO except ice chips antiemetics: Zofran IV fluids for hydration Supportive care Pain medication Morphine 2mg IV PRN (2) Crohn's disease: Code(s): K50.90 - Crohn's disease, unspecified, without complications Status: Acute Assessment and Plan: No home medications for her Crohn's disease bowel resection in the past, and she has been doing very well since that point time. Gastroenterology has been consult and appreciate further recommendations Pain medications and anti-emetics on board Time Spent With Patient Time with patient: Greater than 35 minutes Subjective Date/time seen: 10/08/21 11:15 Interval history: 10/08/21 1115 She is feeling a lot better today. She denies any chest pain, shortness of breath, nausea,vomiting, diarrhea, constipation, weakness or fatigue. She did state that she had a headache this morning, however, the Tylenol has worked. She is currently awaiting GI to come, but is hoping for her diet to be advanced. 10/07/21? 21:52 Ms. Sykes is a 31-year-old female who presented emergency room with complaints of abdominal pain that started last evening prior to dinner.? Patient states that she has a known history of Crohn's disease and had a bowel resection secondary to her Crohn's disease and has been doing very well since that point time.? Patient states she has not been placed on any medications secondary to how well she was doing.? Patient states that last evening she began having abdominal pain before dinner and then try to eat a small amount urine did not feel very well.? Patient states that she did vomit once today.? Patient states she has had quite a bit of nausea but has only vomited once.? Patient states that she typically has bowel movements every day and she had a normal bowel movement yesterday, but has not had a bowel movement today.? Patient denies any fever chills.? Patient denies any dysuria, hematuria, frequency, or urgency.? Upon evaluation in emergency room patient underwent CT scan which showed partial small-bowel obstruction at the ileocolonic anastomosis in the left upper quadrant.? Small sliding hiatal hernia. Patient states she takes no medications at home.? Patient states her only history is Crohn's disease with a colon resection.? Patient states she has had 3 children all vaginally. Review of Systems Review of Systems: All systems reviewed & are unremarkable except as noted in HPI and below Exam Const: General: cooperative, no acute distress, well developed, alert and awake Nutritional Appearance: well nourished Orientation/consciousness: patient oriented x3 Limitations: no limitations HENMT: Head: normal to inspection Ears: hearing grossly normal bilaterally General nose exam: Normal external nose present Mouth: Yes Normal oral and palatal mucosa present, Yes lip normal and Yes tongue normal Teeth and gingiva: abnormal tooth and associated gingiva and poor dentition Eyes: General: appearance normal, both eyes and all related structures Neck: Neck: normal visual inspection, full ROM, trachea midline and supple Chest: Chest palpation & inspection: normal inspection of the chest Resp: Effort & Inspection: normal respiratory effort and able to speak in complete sentences Auscultation: clear to auscultation bilaterally Cardio: Jugular venous distension: no JVD Rate: regular rate Rhythm: regular rhythm Heart sounds: S1 normal heart sound present and S2 normal heart sound present Peripheral pulses: P
--- NOTE | 2021-10-08 11:53 | WPDGICN ---
Assessment and Plan Assessment and plan (1) Partial small bowel obstruction: Code(s): K56.600 - Partial intestinal obstruction, unspecified as to cause Status: Acute Assessment and Plan: Patient admitted the hospital 2 days ago with partial small-bowel obstruction. This is in the area previous distal small bowel resection for Crohn's disease. Differential diagnosis includes flare of Crohn's disease versus adhesions. Currently improving with conservative therapy. And IV steroids. Plan is for colonoscopy tomorrow after preparation today to further differentiate etiology. Liquid diet will be of low it started today will continue IV steroids till colonoscopy is obtained. (2) Crohn's disease: Code(s): K50.90 - Crohn's disease, unspecified, without complications Status: Acute Assessment and Plan: Patient with Crohn's disease resected 2014. At that time no residual disease evident but likely could have recurrence at present. Will continue supportive care for now further recommendations after endoscopy in workup. If colonoscopy not fruitful then small-bowel series subsequently will be performed. GI Consult Note Consult date/time: 10/08/21 11:53 Reason for consult: Partial small-bowel obstruction. HPI: Agnieszka Sykes is a 31 year old female With a history of terminal ileal resection for Crohn's disease in 2014. Patient was in her usual state of health till 2 days ago when she developed rather severe diffuse abdominal pain and distention. This prompted her to go to the ER. In the ER scanning suggested distal small-bowel obstruction at the area of previous resection. She had dilated loops of small bowel. Since then she feels much improved. She has been maintained on IV steroids over the last 2 days. She is currently having no pain although has been NPO. As stated patient's past medical history is significant for the diagnosis of Crohn's disease in 2008. She ultimately had small bowel resection in the ileum in 2014. Initially was placed on Pentasa but discontinued this over the last several years as she has had no difficulties. She states occasionally would get brief abdominal pain for which she would take fruit juice such as apple juice this would cause her to have a bowel movement with prompt resolution of any abdominal discomfort. She has had no weight loss. No bleeding. Did well until abdominal pain and distention occurred 2 days ago. Patient's family history is noncontributory. Review of Systems Review of Systems: Review of systems noncontributory. PMFSH Past Medical History Medical History Anxiety BMI 32.0-32.9,adult Crohn's disease Depression Eczema Hypersomnia Obesity Screening for diabetes mellitus Snoring Family History Family History Father Hypertension Mother Hypertension COPD (chronic obstructive pulmonary disease) Heart disease Grandparent Cerebrovascular accident Social History Social History Smoking status: Never smoker Second hand tobacco smoke exposure: No Alcohol intake: current Drinks per week: 1 Substance use: never Substance use type: marijuana Last use: 2018 Gender identity (if verbalized by the patient): Female Sexual Orientation (if Verbalized by the Patient): Straight or Heterosexual Spiritual care concerns: No Meds Home Medications and Allergies Allergies Allergy/AdvReac Type Severity Reaction Status Date / Time No Known Allergies Allergy Verified 10/07/21 17:58 Vital Signs Vital Signs - 24 hr 10/07/21 15:18 10/07/21 15:31 10/07/21 15:32 Temperature 97.6 F Pulse Rate 88 Respiratory Rate 18 Blood Pressure 132/104 H 137/80 Pulse Oximetry 100 100 100 Oxygen Delivery Room Air 10/07/21 15:46 10/07/21 15:47 10/07/21 16:20
[2021-10-08] MEDS: PEG (High)/E-LYTE SOLN 4,000 ML BTL 4000 ML PO (13:58)
[2021-10-08 14:00] VITALS: BP 114/60; PULSE 75; RESP 20; TEMP 36.2; O2SAT 99
[2021-10-08] MEDS: MORPHINE SULFATE (*CRX) 4 MG/ML INJ 2 MG IV PUSH (18:20)
[2021-10-08 20:48] VITALS: BP 121/70; PULSE 65; RESP 18; TEMP 36.3; O2SAT 100
[2021-10-09] VITALS (7 sets, daily range): BP systolic 110–123; BP diastolic 50–86; PULSE 56–72; RESP 14–21; TEMP 36.3–36.8; O2SAT 95–100
[2021-10-09] MEDS: methylPREDNISolone SOD SUCC 40 MG VIAL IV PUSH ×2 (01:28→05:40)
[2021-10-09] MEDS: MORPHINE SULFATE (*CRX) 4 MG/ML INJ 2 MG IV PUSH (01:28)
[2021-10-09 05:40] LABS: Basophils Percent Auto 0.1 % (0.2-1.2); Hematocrit 38.6 % (37.0-47.0); Hemoglobin 13.1 g/dL (12.0-15.0); Immature Granulocyte Absolute 0.09 K/mm3 (0.00-0.031); Immature Granulocyte Percent A 0.7 % (0-0.5); Lymphocytes Absolute Auto 0.68 K/mm3 (0.9-3.2); Mean Corpuscular HGB Conc 33.9 g/dl (32-36); Mean Corpuscular Hemoglobin 29.8 pg (26-34); Mean Corpuscular Volume 87.7 fl (80-100); Mean Platelet Volume 9.8 fl (7.4-10.4); Monocytes Absolute Auto 0.4 K/mm3 (0.1-0.6); Monocytes Percent Auto 3.2 % (2.6-8.5); Neutrophils Absolute Auto 12.4 K/mm3 (1.3-6.7); Platelet Count Result 224 k/mm3 (150-375); Red Cell Distribution Width 12.8 % (11.5-14.5); White Blood Count 13.6 K/mm3 (4.5-10.0)
[2021-10-09] MEDS: SODIUM CHLORIDE 0.9% IV 1,000 ML 125 ML IV CONT (05:40)
[2021-10-09 05:51] LABS: Alanine Aminotransferase 13 U/L (6-35); Albumin Level 3.9 g/dL (3.5-5.1); Alkaline Phosphatase 66 U/L (38-126); Anion Gap 5 mmol/L (8-16); Aspartate Amino Transferase 17 U/L (14-36); Bilirubin,Total 0.2 mg/dL (0.2-1.3); Blood Urea Nitrogen 12 mg/dL (7-17); Calcium 8.3 mg/dL (8.4-10.2); Carbon Dioxide 22 mmol/L (22-30); Chloride 111 mmol/L (98-107); Estimated CRCL calculation 123 ml/min; Estimated Glomerular Filt Rate > 60; Glucose 134 mg/dL (65-110); Magnesium 2.3 mg/dL (1.6-2.3); Potassium 4.5 mmol/L (3.4-5.0); Sodium 138 mmol/L (137-145)
--- NOTE | 2021-10-09 09:30 | PM.IMPN ---
Progress Note: A&P Assessment and Plan (1) Partial small bowel obstruction: Code(s): K56.600 - Partial intestinal obstruction, unspecified as to cause Status: Acute Assessment and Plan: [address] episode of vomiting reported CT shows partial bowel obstruction at the ileocolonic anastomosis in the left upper quadrant Methylprednisone 40mg IV Q6H, titrate as appropriate Gastroenterology consulted No indication for NG tube at this time NPO except ice chips Colonoscopy scheduled for today antiemetics: Zofran IV fluids for hydration Supportive care Pain medication Morphine 2mg IV PRN (2) Crohn's disease: Code(s): K50.90 - Crohn's disease, unspecified, without complications Status: Acute Assessment and Plan: No home medications for her Crohn's disease bowel resection in the past, and she has been doing very well since that point time. Gastroenterology has been consult and appreciate further recommendations Pain medications and anti-emetics on board Time Spent With Patient Time with patient: Greater than 35 minutes Subjective Date/time seen: 10/09/21 09:30 Interval history: 10/09/21 0930 Patient is doing well today. Patient stated that she has been up all night cleaning out for her colonoscopy. She denies any nausea, vomiting, chest pain, shortness breast, weakness fatigue. She stated that she did well with clear liquids yesterday. 10/08/21 1115 She is feeling a lot better today. She denies any chest pain, shortness of breath, nausea,vomiting, diarrhea, constipation, weakness or fatigue. She did state that she had a headache this morning, however, the Tylenol has worked. She is currently awaiting GI to come, but is hoping for her diet to be advanced. 10/07/21? 21:52 Ms. Sykes is a 31-year-old female who presented emergency room with complaints of abdominal pain that started last evening prior to dinner.? Patient states that she has a known history of Crohn's disease and had a bowel resection secondary to her Crohn's disease and has been doing very well since that point time.? Patient states she has not been placed on any medications secondary to how well she was doing.? Patient states that last evening she began having abdominal pain before dinner and then try to eat a small amount urine did not feel very well.? Patient states that she did vomit once today.? Patient states she has had quite a bit of nausea but has only vomited once.? Patient states that she typically has bowel movements every day and she had a normal bowel movement yesterday, but has not had a bowel movement today.? Patient denies any fever chills.? Patient denies any dysuria, hematuria, frequency, or urgency.? Upon evaluation in emergency room patient underwent CT scan which showed partial small-bowel obstruction at the ileocolonic anastomosis in the left upper quadrant.? Small sliding hiatal hernia. Patient states she takes no medications at home.? Patient states her only history is Crohn's disease with a colon resection.? Patient states she has had 3 children all vaginally. Review of Systems Review of Systems: All systems reviewed & are unremarkable except as noted in HPI and below Exam Const: General: cooperative, no acute distress, well developed, alert and awake Nutritional Appearance: well nourished Orientation/consciousness: patient oriented x3 Limitations: no limitations HENMT: Head: normal to inspection Ears: hearing grossly normal bilaterally General nose exam: Normal external nose present Mouth: Yes Normal oral and palatal mucosa present, Yes lip normal and Yes tongue normal Teeth and gingiva: abnormal tooth and associated gingiva and poor dentition Eyes: General: appearance normal, both eyes and all related structures Neck: Neck: normal visual inspection, full ROM, trachea midline and supple Chest: Chest palpation & inspection: normal inspection of the chest R
--- NOTE | 2021-10-09 13:36 | WPDANESEPPF ---
Anes - Initial Pre Proc Eval Procedure: Operation Date: 10/09/21 14:30 Proposed Procedures p Colonoscopy - Deep Fitch MD Date/Time: 10/09/21 13:36 Surgeon: Little Pre Op Diagnosis: sbo Patient Data Age: 31 Gender: F Height: 1.73 m Weight: 95.9 kg Last Vital Signs Temp 36.3 C L 10/09/21 13:32 Pulse 66 10/09/21 13:32 Resp 18 10/09/21 13:32 BP 111/65 10/09/21 13:32 Pulse Ox 99 10/09/21 13:32 O2 Del Method Room Air 10/09/21 13:32 Allergies Allergy/AdvReac Type Severity Reaction Status Date / Time No Known Allergies Allergy Verified 10/09/21 13:27 Home Medications Medication Instructions Recorded Confirmed Type No Home Medications 10/08/21 10/08/21 History Laboratory Tests 10/09/21 10/09/21 05:14 05:14 WBC 13.6 K/mm3 H K/mm3 (4.5-10.0) RBC 4.40 M/mm3 M/mm3 (4.2-5.4) Hgb 13.1 g/dL g/dL (12.0-15.0) Hct 38.6 % % (37.0-47.0) MCV 87.7 fl fl (80-100) MCH 29.8 pg pg (26-34) MCHC 33.9 g/dl g/dl (32-36) RDW 12.8 % % (11.5-14.5) Plt Count 224 k/mm3 k/mm3 (150-375) MPV 9.8 fl fl (7.4-10.4) Immature Gran % (Auto) 0.7 % H % (0-0.5) Neut % (Auto) 91.0 % H % (45.5-73.1) Lymph % (Auto) 5.0 % L % (18.3-44.2) [place] % (Auto) 3.2 % % (2.6-8.5) Eos % (Auto) 0.0 % % (0-4.4) Baso % (Auto) 0.1 % L % (0.2-1.2) Lymph # (Auto) 0.68 K/mm3 L K/mm3 (0.9-3.2) [place] # (Auto) 0.4 K/mm3 K/mm3 (0.1-0.6) Eos # (Auto) 0.0 K/mm3 K/mm3 (0-0.3) Baso # (Auto) 0.0 K/mm3 K/mm3 (0.0-0.1) Abs Immat Gran (auto) 0.09 K/mm3 H K/mm3 (0.00-0.031) Absolute Neuts (auto) 12.4 K/mm3 H K/mm3 (1.3-6.7) Absolute Nucleated RBC 0.0 K/mm3 K/mm3 (0.0-0.012) Nucleated RBC % 0.0 % % (0.0-0.2) Sodium 138 mmol/L mmol/L (137-145) Potassium 4.5 mmol/L mmol/L (3.4-5.0) Chloride 111 mmol/L H mmol/L (98-107) Carbon Dioxide 22 mmol/L mmol/L (22-30) Anion Gap 5 mmol/L L mmol/L (8-16) BUN 12 mg/dL mg/dL (7-17) Creatinine 0.70 mg/dL mg/dL (0.7-1.0) Estim Creat Clear Calc 123 ml/min ml/min Estimated GFR > 60 (59 - ) Glucose 134 mg/dL H mg/dL (65-110) Calcium 8.3 mg/dL L mg/dL (8.4-10.2) Magnesium 2.3 mg/dL mg/dL (1.6-2.3) Total Bilirubin 0.2 mg/dL mg/dL (0.2-1.3) AST 17 U/L U/L (14-36) ALT 13 U/L U/L (6-35) Alkaline Phosphatase 66 U/L U/L (38-126) Total Protein 7.0 g/dL g/dL (6.3-8.2) Albumin 3.9 g/dL g/dL (3.5-5.1) Patient hx anesthesia problems: none Family hx anesthesia problems: none Results Review: All pre-operative results and documents have been reviewed as part of the pre-operative evaluation. [facility] Past Medical History Medical History Anxiety BMI 32.0-32.9,adult Crohn's disease Depression Eczema Hypersomnia Obesity Screening for diabetes mellitus Snoring Family History Family History Father Hypertension Mother Hypertension COPD (chronic obstructive pulmonary disease) Heart disease Grandparent Cerebrovascular accident Social History Social History Smoking status: Never smoker Second hand tobacco smoke exposure: No Alcohol intake: current Drinks per week: 1 Substance use: never Substance use type: marijuana Last use: 2019 Gender identity (if verbalized by the patient): Female Sexual Orientation (if Verbalized by the Patient): Straight or Heterosexual Spiritual care concerns: No Anes - Eval Final PreProcedure Day of Procedure 10/09/21 13:36 Patient weight: obese Heart: regular rate and rhythm Lungs: clear to auscultation Airway: Mallampat
[2021-10-09] MEDS: LACTATED RINGERS 1,000 ML 150 ML IV CONT (13:40)
[2021-10-09] MEDS: MESALAMINE 250 MG CAP CR 1000 MG PO ×2 (19:25→21:59)
[2021-10-10] MEDS: SODIUM CHLORIDE 0.9% IV 1,000 ML 125 ML IV CONT (00:34)
[2021-10-10 05:45] VITALS: BP 131/68; PULSE 68; RESP 18; TEMP 36.9; O2SAT 100
--- NOTE | 2021-10-10 09:39 | WPDANESPN ---
Anes - Prog Note Post-Op Date/Time: 10/10/21 09:39 Cardiovascular status: normal Respiratory status: normal Airway patency: baseline Mental status: baseline Post-Op hydration status: normal Vital Signs: Last Vital Signs Temp 98.5 F 10/10/21 05:45 Pulse 68 10/10/21 05:45 Resp 18 10/10/21 05:45 BP 131/68 10/10/21 05:45 Pulse Ox 100 10/10/21 05:45 O2 Del Method Room Air 10/09/21 14:54 Pain Score (VAS): 0 I/O: Intake & Output 10/09/21 10/10/21 10/10/21 23:59 07:59 15:59 Intake Total 360 1880 Balance 360 1880 Laboratory Tests 10/09/21 05:14 10/09/21 05:14 Post-procedural complaints: none Patient Feedback: Patient satisfied with anesthetic care.
[2021-10-10] MEDS: MESALAMINE 250 MG CAP CR 1000 MG PO (13:54)
[2021-10-10 15:00] VITALS: BP 126/87; PULSE 57; RESP 16; TEMP 35.7; O2SAT 99
--- NOTE | 2021-10-10 15:05 | PM.DS ---
DS: Admitting Diagnosis Discharge Date 10/10/21 <JOHN QuinonezC - Last Filed: 10/10/21 15:11> Admitting Diagnosis Partial small-bowel obstruction secondary to Crohn's disease <Huma Giang NOLVIAJuliusC - Last Filed: 10/10/21 15:11> DS: Discharge Diagnosis Discharge Diagnosis (1) Partial small bowel obstruction: Code(s): K56.600 - Partial intestinal obstruction, unspecified as to cause <Huma Giang NOLVIA-C - Last Filed: 10/10/21 15:11> Status: Acute <NOLVIA Quinonez-C - Last Filed: 10/10/21 15:11> (2) Crohn's disease: Code(s): K50.90 - Crohn's disease, unspecified, without complications <Huma Giang NOLVIA-C - Last Filed: 10/10/21 15:11> Status: Acute <Huma Giang JOHNC - Last Filed: 10/10/21 15:11> DS: Summary Hospital Course Hospital Course: Patient is a 31-year-old female with history of Crohn's disease who presented emergency room on 10/07/2021 for abdominal pain with nausea. Abdominal pelvic CT showed partial small-bowel obstruction at ileocolonic anastomosis the left upper quadrant. Patient was admitted to the hospitalist service and was started on IV steroids and underwent a colonoscopy. The colonoscopy revealed ileocolonic anastomosis that seems somewhat tight and modestly constricted. After the colonoscopy, GI stopped the steroids and started her on mesalamine. Her leukocytosis was likely from the steroids and is improving. The patient did well with this and her pain was resolved. She also had a small-bowel follow-through date of discharge which is not officially resulted yet but after speaking with Radiology the contrast moved throughout the colon within an hour and patient was having bowel movements. She was tolerating a clear liquid diet and this was advanced to full liquid. The plan is to advance her diet per GI tonight and if she does well she will be discharged. She is going to follow-up with GI outpatient. I called Dr. Marrero and confirmed the mesalamine dose and frequency. Patient was educated about the worrisome signs and symptoms come back to the emergency room for and was discharged in stable condition. <Huma Giang PA-C - Last Filed: 10/10/21 15:11> Time Spent with Patient Time attestation: Total time spent providing and/or coordinating discharge services:36 min <Huma Giang PA-C - Last Filed: 10/10/21 15:11> Time spent: Greater than 30 minutes <Huma Giang PA-C - Last Filed: 10/10/21 15:11> Exam Narrative: General: Well developed well nourished patient in NAD HEENT: normocephalic Neck: supple Neuro: Alert and oriented x4 CV:RRR Resp:CTA Abd: Soft, non distended. No pain to palpation. Positive bowel sounds. Previously healed scars Extremities: No swelling, erythema, or pain to palpation. <Huma Giang PA-C - Last Filed: 10/10/21 15:11> DS: Data Data Completed and Pending Pending studies at discharge: Pending at discharge 10/09/21 14:35 Surgical [PTH] Routine <Huma Giang PA-C - Last Filed: 10/10/21 15:11> Discharge Plan Discharge Attending physician on discharge: Sierra Barlow <Huma Giang PA-C - Last Filed: 10/10/21 15:11> Sierra Barlow <Sierra Barlow MD - Last Filed: 10/15/21 00:33> Consulting providers: Deep Fitch ; Huma Giang ; Jem Garcia ; Alex Taylor ; Ata Pastrana ; Pamela Marc <Huma Giang PA-C - Last Filed: 10/10/21 15:11> Discharging Clinician: Huma Giang <Huma Giang PA-C - Last Filed: 10/10/21 15:11> Huma Giang <Sierra Barlow MD - Last Filed: 10/15/21 00:33> Patient Disposition: Home, Self-Care <Huma Giang PA-C - Last Filed: 10/10/21 15:11> Activity: as tolerated <Huma Giang PA-C - Last Filed: 10/10/21 15:11> as tolerated <Sierra Barlow MD - Last Filed: 10/15/21 00:33> Diet:
--- NOTE | 2021-10-10 18:21 | PC.NURSE ---
Pt tolerated low fiber diet advancement. Per MD communication, pt will d/c this evening.
== END 2021-10-10 18:42 | disposition home or self-care (01) ==
LOC: ANHED 16:34 → ANH3MED 17:56
PROVIDERS: Emergency Medicine; Internal Medicine Gastroenterology; Nurse Practitioner; Nurse Practitioner Adult Health; Admitting Provider Student in an Organized Health Care Education/Training Program; Emergency Provider Nurse Practitioner Family; PCP Nurse Practitioner Family; Visit Provider Family Medicine
PROC: 0DJD8ZZ Inspection of Lower Intestinal Tract, Via Natural or Artificial Opening Endoscopic (ICD-10-PCS; CPT 45378; principal; 2021-10-09 14:30)
DX: K56.600 Partial intestinal obstruction, unspecified as to cause (principal); R10.9 Unspecified abdominal pain; K50.90 Crohn's disease, unspecified, without complications; R11.0 Nausea; K63.89 Other specified diseases of intestine; K64.8 Other hemorrhoids
CPT/HCPCS: 45380; 36415; 74176; 74240; 74248; 80053; 81001; 81025; 83690; 83735; 85025; 88305; 96360; 96361; 96374; 96375; 96376; 99285; A9270; G0378; J0131; J2270; J2405; J2704; J2920; J2930; J7030; J7120

== ENCOUNTER → 2022-10-01 11:38 | Outpatient (CLI) | payer OTHER, SELFPAY ==
--- NOTE | ~2022-10-01 | XR_ITS ---
EXAMINATION: XR chest 2V 10/01/2022 11:55 INDICATION: Shortness of breath PROCEDURE: 2 view chest COMPARISON: No prior studies for comparison. FINDINGS: The lungs are clear. The cardiomediastinal silhouette is within normal limits. There are no pleural effusions. There is no pneumothorax suspected. IMPRESSION: 1: NO ACUTE CARDIOPULMONARY DISEASE. Reviewed, dictated and finalized at location []
== END ==
PROVIDERS: PCP Nurse Practitioner Family; Visit Provider Nurse Practitioner Family
DX: R06.02 Shortness of breath (principal)
CPT/HCPCS: 71046

== ENCOUNTER 2022-10-07 09:22 | Outpatient (CLI) | payer OTHER, SELFPAY ==
--- NOTE | ~2022-10-07 | US_ITS ---
US soft tissue abdomen 10/07/2022 10:02 Indication: Unspecified abdominal hernia without obstruction Procedure: High-resolution ultrasound of the anterior abdominal wall in the area of palpable concern Comparison: No prior studies Findings: There are focal areas of soft tissue protrusion in the anterior abdominal wall, consistent with focal hernias. There is possible bowel intrusion. Consider correlation with CT. No abnormal soft tissue masses or fluid collections. Impression: 1: 2 focal areas of discontinuity in the anterior abdominal wall, most likely representing hernias wi th uncertain content. Cannot exclude bowel intrusion. Consider correlation with CT. Reviewed, dictated and finalized at location L. Impression: 1: 2 focal areas of discontinuity in the anterior abdominal wall, most likely r epresenting hernias with uncertain content. Cannot exclude bowel intrusion. 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
== END 2022-10-07 09:23 | disposition home or self-care (01) ==
PROVIDERS: PCP Nurse Practitioner Family; Visit Provider Nurse Practitioner Family
DX: K46.9 Unspecified abdominal hernia without obstruction or gangrene (principal); R06.02 Shortness of breath
CPT/HCPCS: 76705

== ENCOUNTER 2022-10-29 08:10 | Outpatient (CLI) | payer OTHER, SELFPAY ==
--- NOTE | 2022-11-23 17:08 | WPDSLEEPSTUD ---
Sleep Study Date of Study: 10/29/22 Ordering Provider: Helen Garber NP Interpreting Physician: Karoline Linda MD Sleep Study Type: CPAP Titration Height: 1.63 m Weight: 95.254 kg Body Mass Index: 36.0 Neck Circumference (inches): 16 [place]: 6 Reason for Sleep Study * 03/30/2022 Home sleep test @ [facility]; Mild obstructive sleep apnea on a home sleep test, respiratory event index 5.6, lowest desaturation 92%. She had snoring for 78.1% of monitoring time. She presents now for CPAP titration Sleep History Agnieszka Sykes is a 32-year-old female who has difficulty falling asleep no matter how tired she is. She struggles to stay asleep. She is always tired. There is a family history of sleep issues, her mother has apnea. Her grandmother and uncle also have sleeping problems. She never awakens from sleep feeling short of breath. She does not awaken at night with heartburn, belching or coughing. She frequently snores. It is always loud enough that others complain about it. She occasionally has difficulty sleeping with a cold. She does not wake up gasping for breath at night. She does not have breathing problems at night reported to her by others. She frequently sweats excessively at night. She does not notice her heart pounding or beating irregularly night. She does not fall asleep during the day, does not fall asleep involuntarily or while driving. She does not have loss of muscle tone with strong emotion. She rarely has daytime difficulties due to excessive sleepiness. She does not feel paralyzed on waking or falling asleep. She rarely has vivid dreamlike scenes upon awakening or falling asleep. She does not feel afraid to go to sleep. She does not have nightmares. She rarely remembers her dreams. She frequently has racing thoughts. She rarely feels sad or depressed. She occasionally has anxiety. She does not have muscular tension. She rarely notices parts of her body jerking. She does not kick at night. She does not have crawling or aching feelings in her legs. She does not have any kind of leg pain at night. She does not have morning jaw pain. She does not grind her teeth at night. She does not have pain bothering her during the day and she is not awakened by pain at night. She does not wake up feeling stiff in the morning with sore achy muscles or pain in the neck and spine. She has insomnia, memory problems and headaches. Normal bedtime 10:00 p.m. falling asleep within a few hours. She typically wakes up 1-2 times during the night to roll over. Sometimes her sleep is disturbed by back pain, her pets and children. She has 3 children, ages 7, 5 and a year and half. Her normal work shift is 8:00 a.m. to 5:00 p.m. Tuesday to Tuesday. She does not take naps in the afternoon or evening. A short nap 10 or 15 minutes long is not refreshing. She is usually drowsy for 2 hours after waking. She feels better in the afternoon compared to other times of day. Habits: Caffeine: more than I should PMFSH Past Medical History Medical History Anxiety BMI 31.0-31.9,adult BMI 32.0-32.9,adult Chest discomfort Crohn's disease Depression Eczema Elevated glucose Elevated LDL cholesterol level Fatigue Hernia History of blood transfusion Hypersomnia Increased frequency of urination Obesity TATO (obstructive sleep apnea) Screening for diabetes mellitus Shortness of Breath Snoring Stomach ulcer Surgical History Surgical History History of colon surgery Hx of appendectomy 2014 Family History Family History Father Hypertension Mother Hypertension COPD (chronic obstructive pulmonary disease) Heart disease Grandparent Cerebrovascular accident Social History Social History (Reviewed 11/23/22 @ 17:23 by Karoline Shabazz
[2022-11-24 14:41] VITALS: BMI 36.0
== END 2022-10-30 07:59 | disposition home or self-care (01) ==
LOC: ANHCSM 08:12
PROVIDERS: PCP Nurse Practitioner Family; Visit Provider Nurse Practitioner Family
DX: G47.33 Obstructive sleep apnea (adult) (pediatric) (principal)
CPT/HCPCS: 95811

== ENCOUNTER 2022-12-02 16:06 | Outpatient (CLI) | payer OTHER, SELFPAY | END 2022-12-02 16:07 | disposition home or self-care (01) | LOC: ANHLAB 16:10 | PROVIDERS: PCP Nurse Practitioner Family; Visit Provider Anesthesiology | DX: Z01.818 Encounter for other preprocedural examination (principal); K46.9 Unspecified abdominal hernia without obstruction or gangrene | CPT/HCPCS: 36415; 86850; 86870; 86880; 86900; 86901; 86902; 86905; 86971 ==

== ENCOUNTER 2022-12-06 13:20 | Outpatient (CLI) | payer OTHER, SELFPAY | END 2022-12-06 16:53 | disposition home or self-care (01) | PROVIDERS: PCP Nurse Practitioner Family; Visit Provider Anesthesiology | DX: K46.9 Unspecified abdominal hernia without obstruction or gangrene (principal) | CPT/HCPCS: 36415; 86850; 86870; 86880; 86900; 86901; 86902; 86905; 86922; 86971 ==

== ENCOUNTER 2022-12-08 00:22 | Day surgery (SDC) | payer OTHER, SELFPAY ==
[2022-12-01 08:24] VITALS: BMI 34.8
--- NOTE | 2022-12-01 08:25 | PC.NURSE ---
Report to the Outpatient Waiting Room, entrance under the green pavilion located off [facility], at time _0800_ on date _12/08/22__. Planned Procedure Time: _1000. Time changes happen often and if your time is changed the preop area will call you the afternoon before. - You and your visitor will be asked to self-screen and do not enter if you have any COVID symptoms. - A mask is optional within the hospital at this time. Patients may have clear liquids (water, carbonated beverages, clear teas, apple juice) until 3 hours prior to surgery with a maximum of 20 ounces. - No food from midnight until time of surgery - Infants may have breast milk until 4 hours before surgery, infant formula 6 hours prior to surgery. - Children will be allowed to drink immediately following surgery. If applicable, please bring a bottle or sippy cup to assist with drinking. Juice, water, soda, and popsicles are readily available. For infants on formula, please bring formula the day of surgery. Pacifiers are allowed. Take the following medications with a SIP of water the morning of surgery: NONE DO NOT STOP ANY OF YOUR OTHER PRESCRIPTION MEDICATIONS PRIOR TO SURGERY ?EXCEPT THE FOLLOWING Medications to discontinue per physician NONE Date to take last dose Please no make-up, nail indonesian, hairspray, perfume, deodorant, or body powder the day of surgery. No jewelry (including any body piercings) or valuables the day of surgery, leave them at home. Please take a shower or bath the night before, or the morning of, surgery with HIBICLENS antibacterial soap. Wear comfortable, loose fitting clothing. Children are encouraged to wear pajamas. - Jewelry must be removed prior to entering the operating room. Rings and piercings that are not removed may be cut off. - The hospital will not accept responsibility for valuables. - Please leave all valuables, including medications, at home the day of surgery. If you are going home after surgery, a licensed professional driver must drive you home. - NO public transportation without another adult if you receive anesthesia. - We recommend that an adult stay with you for 24 hours following discharge. - We also recommend that you do not drive, make important decision, drink alcoholic beverages, or take any drugs that were not prescribed by your health care provider for at least 24 hours after your discharge time. For Pediatric surgeries, we recommend two adults accompany the child home. Follow any additional instructions given to you from your surgeon. If you or anyone in your household have experienced Covid symptoms in the past week, please notify your surgeon or the nurse liaison at the phone number below for possible testing. Telephone instructions given to _PATIENT_and asked if any additional questions and then verbalized understanding. Patient advised to call surgeon office or pre surgery nurse liaison [phone] if any additional questions.
--- NOTE | 2022-12-06 14:42 | SUR.PREOP ---
blood bank informed this RN they have contacted patient to come in for additional blood work due to antibodies in previous blood work, per Deyanira in [facility] they will place order.
[2022-12-08] VITALS (12 sets, daily range): BP systolic 95–132; BP diastolic 57–82; PULSE 58–90; RESP 12–14; TEMP 36.2–36.3; O2SAT 89–100
[2022-12-08] MEDS: LACTATED RINGERS 1,000 ML 30 ML IV CONT ×2 (08:15→11:00)
[2022-12-08] MEDS: ACETAMINOPHEN 500 MG TABLET 1000 MG PO (08:15)
[2022-12-08] MEDS: KETOROLAC 15 MG/ML VIAL (*BKC) IV PUSH (08:15)
--- NOTE | 2022-12-08 08:55 | WPDANESEPPF ---
Anes - Initial Pre Proc Eval Procedure: Operation Date: 12/08/22 10:00 Proposed Procedures p Laparoscopic Incisional Hernia Repair with Mesh, Davinci Assisted - Konstantin Franco DO Date/Time: 12/08/22 08:55 Surgeon: Konstantin Franco DO Pre Op Diagnosis: Incisional Hernia Patient Data Age: 32 Gender: F Height: 1.65 m Weight: 96.8 kg Last Vital Signs Temp 36.2 C L 12/08/22 08:11 Pulse 90 12/08/22 08:11 Resp 14 12/08/22 08:11 BP 132/82 12/08/22 08:11 Pulse Ox 100 12/08/22 08:11 O2 Del Method Room Air 12/08/22 08:11 Allergies Allergy/AdvReac Type Severity Reaction Status Date / Time No Known Allergies Allergy Verified 12/08/22 08:19 Home Medications Medication Instructions Recorded Confirmed Type No Home Medications 12/01/22 12/01/22 History Patient hx anesthesia problems: none Family hx anesthesia problems: none Results Review: All pre-operative results and documents have been reviewed as part of the pre-operative evaluation. [facility] Past Medical History Medical History Anxiety BMI 31.0-31.9,adult BMI 32.0-32.9,adult Chest discomfort Crohn's disease Depression Eczema Elevated glucose Elevated LDL cholesterol level Fatigue Hernia History of blood transfusion Hypersomnia Increased frequency of urination Obesity TATO (obstructive sleep apnea) Screening for diabetes mellitus Shortness of Breath Snoring Stomach ulcer Surgical History Surgical History History of colon surgery Hx of appendectomy 2014 Family History Family History Father Hypertension Mother Hypertension COPD (chronic obstructive pulmonary disease) Heart disease Grandparent Cerebrovascular accident Social History Social History Smoking status: Never smoker Tobacco type: e-cigarettes/vaping Second hand tobacco smoke exposure: No Additional smoking assessment comments: DAILY FOR 1.5 YRS Alcohol intake: current Drinks per week: 1 Alcohol use details: RARELY Substance use: former Substance use type: marijuana Other substance usage details: Rarely Last use: 2021 Lack of Transportation: No Lack of Food: Never True Current Housing: I Have Housing Concerned About Future Housing: No Difficulty Paying Gas/Electric Bills: No Difficulty Paying for Meds: No Currently Unemployed: No Education: Associate Degree Difficulty w/ Childcare or Family Care: No Living arrangements: with family Gender identity (if verbalized by the patient): Female Sexual Orientation (if Verbalized by the Patient): Straight or Heterosexual Spiritual care concerns: No Anes - Eval Final PreProcedure Day of Procedure 12/08/22 08:55 Patient weight: obese Heart: regular rate and rhythm Lungs: clear to auscultation Airway: Mallampati scale class II Neurological: alert and oriented Last oral intake: >/= 8 hours ASA classification: III Emergent: no Anesthetic plan: proceed Anesthesia type and monitoring: general ETT and standard monitoring Results Review: All pre-operative results and documents have been reviewed as part of the pre-operative evaluation. Informed Consent: The patient's anesthetic plan and its attendant risks and benefits were discussed with the patient/family/POA. Questions were solicited and answers provided to the satisfaction of the patient/family/POA.
--- NOTE | 2022-12-08 09:00 | WPDHPUPDATE1 ---
History and Physical Update Update Date/Time: 12/08/22 09:00 History and Physical has been reviewed, including an updated exam of the patient. There are NO changes in the patient's condition. Risks, benefits, and alternatives have been discussed and questions answered. Patient agrees to proceed with procedure.
--- NOTE | 2022-12-08 09:01 | PM.IMHP ---
H&P: HPI History of Present Illness Date/Time: 12/08/22 09:01 Chief Complaint: Incisional hernia Narrative: This is a 32-year-old woman who presents for incisional hernia repair. She denies any changes since last seen in the office. Review of Systems Review of Systems: All systems reviewed & are unremarkable except as noted in HPI and below Constitutional: Constitutional: Denies chills, Denies fever(s), Denies headache(s) and Denies weight loss Eyes: Eyes: Denies change in vision ENT: Denies dizziness, Denies headache(s), Denies neck mass and Denies throat swelling Cardiovascular: Cardiovascular: Denies chest pain, Denies lightheadedness and Denies dyspnea Respiratory: Respiratory: Denies cough, Denies dyspnea and Denies wheezing Gastrointestinal: Gastrointestinal: Denies abdominal pain, Denies change in bowel habits, Denies nausea and Denies vomiting Genitourinary: Genitourinary: Denies hematuria and Denies dysuria Musculoskeletal: Musculoskeletal: Reports as per HPI Integumentary/Breasts: Skin/Breast: Reports as per HPI Neurologic: Denies dizziness and Denies headache(s) Allergic/Immunologic: Allergic/Immunologic: Denies throat swelling and Denies wheezing PMFSH Past Medical History Medical History Anxiety BMI 31.0-31.9,adult BMI 32.0-32.9,adult Chest discomfort Crohn's disease Depression Eczema Elevated glucose Elevated LDL cholesterol level Fatigue Hernia History of blood transfusion Hypersomnia Increased frequency of urination Obesity TATO (obstructive sleep apnea) Screening for diabetes mellitus Shortness of Breath Snoring Stomach ulcer Surgical History Surgical History History of colon surgery Hx of appendectomy 2014 Family History Family History Father Hypertension Mother Hypertension COPD (chronic obstructive pulmonary disease) Heart disease Grandparent Cerebrovascular accident Social History Social History Smoking status: Never smoker Tobacco type: e-cigarettes/vaping Second hand tobacco smoke exposure: No Additional smoking assessment comments: DAILY FOR 1.5 YRS Alcohol intake: current Drinks per week: 1 Alcohol use details: RARELY Substance use: former Substance use type: marijuana Other substance usage details: Rarely Last use: 2021 Lack of Transportation: No Lack of Food: Never True Current Housing: I Have Housing Concerned About Future Housing: No Difficulty Paying Gas/Electric Bills: No Difficulty Paying for Meds: No Currently Unemployed: No Education: Associate Degree Difficulty w/ Childcare or Family Care: No Living arrangements: with family Gender identity (if verbalized by the patient): Female Sexual Orientation (if Verbalized by the Patient): Straight or Heterosexual Spiritual care concerns: No Meds Home Medications and Allergies Home Medications Medication Instructions Recorded Confirmed Type No Home Medications 12/01/22 12/01/22 History Allergies Allergy/AdvReac Type Severity Reaction Status Date / Time No Known Allergies Allergy Verified 12/08/22 08:19 Vital Signs Vital Signs - 24 hr 12/08/22 08:11 Temperature 36.2 C L Pulse Rate 90 Respiratory Rate 14 Blood Pressure 132/82 Pulse Oximetry 100 Oxygen Delivery Room Air Exam Const: General: no acute distress and alert Orientation/consciousness: patient oriented x3 HENMT: Head: normocephalic and atraumatic Ears: hearing grossly normal bilaterally Face/Nose/Sinus: Normal nares present Mouth: Yes Normal oral and palatal mucosa present Eyes: Periorbital: periorbital findings normal Sclera: sclerae normal EOM: EOMs intact bilaterally Neck: Neck: normal visual inspection, no lymphadenopa
--- NOTE | 2022-12-08 09:02 | WPDHPUPDATE1 ---
History and Physical Update Update Date/Time: 12/08/22 09:02 History and Physical has been reviewed, including an updated exam of the patient. There are NO changes in the patient's condition. Risks, benefits, and alternatives have been discussed and questions answered. Patient agrees to proceed with procedure.
[2022-12-08] MEDS: ceFAZolin 2 GM/D5W 50 ML 2 GM/50 ML BAG IVPB (09:25)
[2022-12-08] MEDS: BUPIVACAINE/EPINEPHRINE 0.5% 30 ML VIAL INFILTRATE (10:13)
--- NOTE | 2022-12-08 10:56 | W.PM.PROC2 ---
Procedure Note - Detailed Date of Procedure 12/08/22 Pre-op Diagnosis Incisional Hernia Post-op Diagnosis Same (6cm Incisional hernia) Procedure Performed Laparoscopic 6 cm incisional hernia repair with mesh, da Que assisted Surgeon Konstantin Franco DO Anesthesia General and Local (0.5% bupivacaine with epinephrine) Indications This is a 32-year-old woman who presented with an incisional hernia in the mid abdomen, supraumbilical region. She has a history of bowel resection for Crohn's disease and also had a previous history of bowel obstruction. She was noted to have a bulge just above the umbilicus and ultrasound of the abdominal wall showed evidence 2 defects within this region suspicious incisional hernias. Discussions were made with the patient about treatment options and decision was made to proceed with laparoscopic incisional hernia repair with mesh, da Que assisted. Findings Laparoscopic incisional hernia repair was performed. The patient was found to have multiple hernia defects along the scar from her previous bowel resection. The hernia defects were only about 2 cm wide but spanned a length of 6 cm from the most inferior hernia to the most superior hernia. A robotic intraperitoneal onlay mesh technique was utilized for hernia repair. No specimens were obtained for pathology. Description of Procedure Procedure as well as risks, benefits, and alternatives were discussed with the patient. Written consent was obtained and placed in chart prior to procedure. Patient was brought back to surgical suite. She was placed supine on operating table. Time-out was done to confirm patient and procedure. She was then intubated by the anesthesia department. A bump was placed under her left hip, and the bed was flexed slightly to extend the space between her costal margin and iliac crest. Her abdomen was prepped and draped in sterile fashion using chlorhexidine prep. A 5 millimeter incision was made in the left upper quadrant, and a 5 millimeter Optiview trocar was advanced through the abdominal layers under direct visualization. Once inside the abdominal cavity, carbon dioxide insufflation was used to create a pneumoperitoneum. Her abdomen was inspected. An 8 millimeter incision was made in the left lower quadrant, and an 8 millimeter robotic trocar was placed under direct visualization. Another 8 millimeter incision was made in the left lateral abdomen, and an 8 millimeter robotic trocar was placed under direct visualization. 0.5% bupivacaine with epinephrine was infiltrated locally around the port sites. The 5 millimeter port was removed, and an 8 mm robotic trocar was placed under direct visualization. The robotic arms were brought up to the patient's bedside and secured to the ports. The camera and instruments were inserted, and I then moved over to the robotic console and took control of the camera and instruments. After careful thorough inspection of the abdominal cavity, I began my dissection at the hernia. The falciform ligament was dissected far enough cephalad to allow mesh placement. I then measured the hernia size. There were multiple hernias within the old scar. The hernia dimensions measured 2 cm wide by 6 cm in length from the inferior edge of the most caudal hernia and superior edge of the most cephalad hernia. The fascia was closed using an 0-Stratafix running suture in a vertical fashion. A Ventralight ST 15 cm x 10 cm mesh was then placed within the abdominal cavity. This was oriented vertically with the mesh centered on the hernia defect. The mesh was then secured at the center and 4 corners using 3-0 Vicryl simple interrupted sutures. The mesh was then secured circumferentially to the abdominal wall using 2 0 V lock running absorbable suture. The repair was inspected, and one final inspection was made around the abdominal cavity. The robotic instruments were then removed, and the robotic arms were disengaged from the trocar
[2022-12-08] MEDS: fentaNYL CITRATE INJ (*CRX) 100 MCG/2 ML VIAL 25 MCG IV PUSH ×8 (11:35→14:07)
[2022-12-08] MEDS: ONDANSETRON INJ 4 MG/2 ML VIAL IV PUSH (12:33)
[2022-12-08] MEDS: oxyCODONE HCL (*CRX) 5 MG TAB IR PO (12:59)
== END 2022-12-08 14:17 | disposition home or self-care (01) ==
PROVIDERS: PCP Nurse Practitioner Family; Visit Provider Surgery
PROC: (CPT 49593; principal; 2022-12-08 10:00)
DX: K43.2 Incisional hernia without obstruction or gangrene (principal); K50.10 Crohn's disease of large intestine without complications; Z90.49 Acquired absence of other specified parts of digestive tract; F17.290 Nicotine dependence, other tobacco product, uncomplicated; E66.9 Obesity, unspecified; Z68.35 Body mass index [BMI] 35.0-35.9, adult
CPT/HCPCS: 49593; S2900; 36415; 86850; 86870; 86880; 86900; 86901; 86902; 86905; 86971; A9270; C1781; J0690; J1100; J1885; J2250; J2405; J2704; J3010; J7120

== ENCOUNTER 2023-07-20 16:59 | Emergency (ER) | payer OTHER, SELFPAY ==
--- NOTE | ~2023-07-20 | XR_ITS ---
EXAMINATION: XR chest 2V DATE: 07/20/2023 18:11 INDICATION: Chest pain TECHNIQUE: PA and lateral views of the chest were obtained. COMPARISON: None FINDINGS: The lungs are clear with no focal airspace opacities, pulmonary edema, pleural effusion or pneumothor ax. The cardiomediastinal silhouette is normal. Moderate midthoracic spondylosis. IMPRESSION: 1. No acute cardiopulmonary disease. Reviewed, dictated and finalized at location A.
--- NOTE | 2023-07-20 17:00 | ECG_ITS ---
Measurements Intervals [place] Rate: 81 P: 35 RI: 156 QRS: 63 QRSD: 72 T: 29 QT: 348 QTc: 404 Interpretive Statements SINUS RHYTHM NONSPECIFIC T WAVE ABNORMALITY COMPARED TO PRIOR EKG 06/09/2020: NO SIGNIFICANT CHANGES Electronically Signed On 07-21-2023 10:59:38 CDT by Blue Ellison M.D.
[2023-07-20 17:05] VITALS: BP 134/74; PULSE 84; RESP 16; TEMP 36.8; O2SAT 99
--- NOTE | 2023-07-20 17:12 | ED.GENADULT ---
HPI - General Adult General Chief complaint: Chest Pain Stated complaint: CHEST PAIN Time Seen by Provider: 07/20/23 17:12 Focused HPI: 32 y/o female who presents with complaints of mid chest pain for 24 hours along with some SOB with exertion. Not on any medications daily Her PCP sent her in for evaluation She also states that her PCP took her off of her famotidine about 1 month ago GENERAL: Well-appearing, well-nourished, and in no acute distress. HEAD: Normocephalic, atraumatic. CHEST: Clear to auscultation. ?No respiratory distress. HEART: Regular rate and rhythm.? NEURO: ?Alert and oriented x3. Patient screened in triage and initial orders placed.? ?Additional care and disposition to be based upon?diagnostic testing and treatment. Related Data Allergies Allergy/AdvReac Type Severity Reaction Status Date / Time No Known Allergies Allergy Verified 06/07/23 08:08 [facility] Past Medical History Medical History (Updated 07/21/23 @ 10:00 by Tali Chiang, DIRECTOR OF PLACEMENT) Anxiety BMI 31.0-31.9,adult BMI 32.0-32.9,adult BMI 34.0-34.9,adult Chest discomfort Chest pain Crohn's disease Depression Eczema Elevated glucose Elevated LDL cholesterol level Fatigue Hernia History of blood transfusion Hypersomnia Increased frequency of urination Obesity TATO (obstructive sleep apnea) TATO on CPAP Screening for diabetes mellitus Shortness of Breath Snoring Stomach ulcer Surgical History Surgical History History of colon surgery Hx of appendectomy 2014 Family History Family History Father Hypertension Mother Hypertension COPD (chronic obstructive pulmonary disease) Heart disease Grandparent Cerebrovascular accident Social History Social History Smoking status: Never smoker Tobacco type: e-cigarettes/vaping Second hand tobacco smoke exposure: No Additional smoking assessment comments: DAILY FOR 1.5 YRS Alcohol intake: current Drinks per week: 1 Alcohol use details: RARELY Substance use: former Substance use type: marijuana Other substance usage details: Rarely Last use: 2021 Lack of Transportation: No Lack of Food: Never True Current Housing: I Have Housing Concerned About Future Housing: No Difficulty Paying Gas/Electric Bills: No Difficulty Paying for Meds: No Currently Unemployed: No Education: Associate Degree Difficulty w/ Childcare or Family Care: No Living arrangements: with family Gender identity (if verbalized by the patient): Female Sexual Orientation (if Verbalized by the Patient): Straight or Heterosexual Spiritual care concerns: No Course Vital Signs Vital signs: Vital Signs Temperature 36.8 C 07/20/23 17:05 Pulse Rate 84 07/20/23 17:05 Respiratory Rate 16 07/20/23 17:05 Blood Pressure 134/74 07/20/23 17:05 Pulse Oximetry 99 07/20/23 17:05 Temperature 36.8 C 07/20/23 17:05 Pulse Rate 84 07/20/23 17:05 Respiratory Rate 16 07/20/23 17:05 Blood Pressure 134/74 07/20/23 17:05 Pulse Oximetry 99 07/20/23 17:05 Medical Decision Making Vital Signs Vital Signs: Vital Signs Temperature 36.8 C 07/20/23 17:05 Pulse Rate 84 07/20/23 17:05 Respiratory Rate 16 07/20/23 17:05 Blood Pressure 134/74 07/20/23 17:05 Pulse Oximetry 99 07/20/23 17:05 Temperature 36.8 C 07/20/23 17:05 Pulse Rate 84 07/20/23 17:05 Respiratory Rate 16 07/20/23 17:05 Blood Pressure 134/74 07/20/23 17:05 Pulse Oximetry 99 07/20/23 17:05 Lab Data 07/20/23 17:07 07/20/23 17:07 Labs: Lab Results 07/20/23 Range/Units 17:07 WBC 7.8 (4.5-10.0) K/mm3 RBC 4.75 (4.2-5.4) M/mm3 Hgb 14.0 (12.0-15.0) g/dL Hct 41.9 (37.0-47.0) % MCV 88.2 (80-100) fl MCH 29.5 (26-34) pg MCHC 33.4 (32
[2023-07-20 17:19] LABS: Basophils Percent Auto 0.4 % (0.2-1.2); Eosinophils Absolute Auto 0.1 K/mm3 (0-0.3); Eosinophils Percent Auto 0.8 % (0-4.4); Hematocrit 41.9 % (37.0-47.0); Immature Granulocyte Absolute 0.02 K/mm3 (0.00-0.031); Immature Granulocyte Percent A 0.3 % (0-0.5); Lymphocytes Absolute Auto 2.05 K/mm3 (0.9-3.2); Lymphocytes Percent Auto 26.5 % (18.3-44.2); Mean Corpuscular HGB Conc 33.4 g/dl (32-36); Mean Corpuscular Hemoglobin 29.5 pg (26-34); Mean Corpuscular Volume 88.2 fl (80-100); Mean Platelet Volume 9.7 fl (7.4-10.4); Monocytes Absolute Auto 0.5 K/mm3 (0.1-0.6); Monocytes Percent Auto 6.8 % (2.6-8.5); Neutrophils Absolute Auto 5.1 K/mm3 (1.3-6.7); Neutrophils Percent Auto 65.2 % (45.5-73.1); Platelet Count Result 249 k/mm3 (150-375); Red Blood Count 4.75 M/mm3 (4.2-5.4); Red Cell Distribution Width 12.7 % (11.5-14.5); White Blood Count 7.8 K/mm3 (4.5-10.0)
[2023-07-20 17:29] LABS: Alanine Aminotransferase 21 U/L (6-35); Albumin Level 4.5 g/dL (3.5-5.1); Alkaline Phosphatase 52 U/L (38-126); Anion Gap 6 mmol/L (4-12); Aspartate Amino Transferase 22 U/L (14-36); Bilirubin,Total 0.4 mg/dL (0.2-1.3); Blood Urea Nitrogen 18 mg/dL (7-17); Calcium 9.3 mg/dL (8.4-10.2); Carbon Dioxide 25 mmol/L (22-30); Chloride 104 mmol/L (98-107); Estimated CRCL calculation 93 ml/min; Estimated Glomerular Filt Rate > 60; Glucose 95 mg/dL (65-110); Lipase 120 U/L (23-300); Potassium 3.8 mmol/L (3.4-5.0); Sodium 135 mmol/L (137-145)
[2023-07-20 17:33] LABS: INR 0.9; Prothrombin Time 12.5 Seconds (11.1-14.7)
[2023-07-20 17:34] LABS: Partial Thromboplastin Time 30.1 Seconds (22.3-36.8)
[2023-07-20 17:41] LABS: NT Pro B Type Natriuretic Pept < 20 pg/mL (19.9-100); Troponin I < 0.012 ng/mL (0.000-0.034)
[2023-07-20 18:00] LABS: D Dimer < 0.27 ug/mL (<0.48)
--- NOTE | 2023-07-20 20:16 | PC.NURSE ---
patient to desk and stated she couldn't wait any longer. patient advised to go to ER if symptoms get worse.
== END 2023-07-20 21:56 | disposition left against medical advice (07) ==
PROVIDERS: Emergency Medicine; Emergency Provider Nurse Practitioner Family; PCP Nurse Practitioner Family
DX: R07.89 Other chest pain (principal); K50.90 Crohn's disease, unspecified, without complications; E66.9 Obesity, unspecified; Z68.36 Body mass index [BMI] 36.0-36.9, adult; G47.33 Obstructive sleep apnea (adult) (pediatric); F17.290 Nicotine dependence, other tobacco product, uncomplicated; R94.31 Abnormal electrocardiogram [ECG] [EKG]
CPT/HCPCS: 36415; 71046; 80053; 83690; 83880; 84484; 85025; 85380; 85610; 85730; 93005; 99284

== ENCOUNTER 2023-08-05 13:58 | Outpatient (CLI) | payer OTHER, SELFPAY ==
--- NOTE | ~2023-08-05 | CT_ITS ---
EXAMINATION: CT abdomen w con DATE: 08/05/2023 14:48 INDICATION: Umbilical hernia. TECHNIQUE: Computed tomography (CT) of the abdomen was performed with 100 mL Omnipaque 350 intravenou s contrast. Automated exposure control and iterative reconstruction technique were employed. The dose -length product was 496.39 mGy-cm. COMPARISON: None. FINDINGS: The visualized portions of the lung bases demonstrate mild atelectasis. No pleural effusion . The heart size is normal. No pericardial effusion. The liver, gallbladder, spleen, pancreas, adrena l glands, and kidneys are normal. There are no dilated loops of bowel. There are changes of umbilical hernia repair. There are no pathologically enlarged lymph nodes. There is no free intraperitoneal fl uid. There is mild lumbar spondylosis. IMPRESSION: 1. Changes of umbilical hernia repair. Reviewed, dictated and finalized at location E.
== END 2023-08-05 13:59 | disposition home or self-care (01) ==
LOC: ANHIMG 14:04
PROVIDERS: PCP Nurse Practitioner Family; Visit Provider Surgery Plastic and Reconstructive Surgery
DX: K42.9 Umbilical hernia without obstruction or gangrene (principal)
CPT/HCPCS: 74160; Q9967

== ENCOUNTER 2023-10-13 14:03 | Emergency (ER) | payer OTHER, SELFPAY ==
--- NOTE | ~2023-10-13 | XR_ITS ---
XR shoulder LT min 2V Ordering provider: Diane Fatima PA-C History: . pain lt shoulder after softball inj x3 wks . Comparison: None. FINDINGS: BONES: No acute fracture or dislocation. JOINT SPACES: The acromioclavicular joint is normal. The glenohumeral joint is normal. SOFT TISSUES: Normal. IMPRESSION: No acute osseous abnormality left shoulder. Reviewed, dictated and finalized at location A.
[2023-10-13 14:49] VITALS: BP 134/84; PULSE 92; RESP 20; TEMP 36.5; O2SAT 99
[2023-10-13 17:17] VITALS: BP 117/79; PULSE 77; RESP 16; O2SAT 99
--- NOTE | 2023-10-13 17:54 | ED.UPPEXIN ---
HPI - Extremity Injury (Upper) General Chief Complaint: Extremity Injury, Upper Stated Complaint: left shoulder pain Time Seen by Provider: 10/13/23 16:55 Source: patient Mode of arrival: ambulatory Limitations: no limitations History of Present Illness HPI narrative: Patient is a 33 y/o female, with pmh of crohn's disease, who presents to the ED with report of left shoulder pain. Patient reports she was playing in a softball game 3 weeks ago and had some discomfort in her left shoulder after the game. She has had intermittent pain since then, but reports increased pain over the last 2 days. Denies any distinct injury recently, but does note she was holding for several hours yesterday. She has been taking ibuprofen with minimal relief. Denies significant numbness or tingling, swelling of arm, chest pain, shortness of breath. Related Data Allergies Allergy/AdvReac Type Severity Reaction Status Date / Time No Known Allergies Allergy Verified 10/13/23 14:48 Review of Systems Review of Systems: CONSTITUTIONAL: Denies fever, chills, or sweats. CARDIOVASCULAR: Denies chest pain. RESPIRATORY: Denies dyspnea. MUSCULOSKELETAL: See HPI. NEUROLOGIC: Denies headache, dizziness, numbness, or weakness. All systems reviewed & are unremarkable except as noted in HPI and below PMFSH Past Medical History Medical History Anxiety BMI 31.0-31.9,adult BMI 32.0-32.9,adult BMI 34.0-34.9,adult Chest discomfort Chest pain Crohn's disease Depression Eczema Elevated glucose Elevated LDL cholesterol level Fatigue Hernia History of blood transfusion Hypersomnia Increased frequency of urination Obesity TATO (obstructive sleep apnea) TATO on CPAP Screening for diabetes mellitus Shortness of Breath Snoring Stomach ulcer Surgical History Surgical History History of colon surgery Hx of appendectomy 2014 Family History Family History Father Hypertension Mother Hypertension COPD (chronic obstructive pulmonary disease) Heart disease Grandparent Cerebrovascular accident Social History Social History Smoking status: Never smoker Tobacco type: e-cigarettes/vaping Second hand tobacco smoke exposure: No Additional smoking assessment comments: DAILY FOR 1.5 YRS Alcohol intake: current Drinks per week: 1 Alcohol use details: RARELY Substance use: former Substance use type: marijuana Other substance usage details: Rarely Last use: 2021 Lack of Transportation: No Lack of Food: Never True Current Housing: I Have Housing Concerned About Future Housing: No Difficulty Paying Gas/Electric Bills: No Difficulty Paying for Meds: No Currently Unemployed: No Education: Associate Degree Difficulty w/ Childcare or Family Care: No Living arrangements: with family Gender identity (if verbalized by the patient): Female Sexual Orientation (if Verbalized by the Patient): Straight or Heterosexual Spiritual care concerns: No Exam Narrative: GENERAL: Well appearing, Obese with BMI of 31.8, non-toxic, in no acute distress. HEAD: Normocephalic, atraumatic. RESPIRATORY: Airway patent, respirations nonlabored. CARDIOVASCULAR: Regular rate and rhythm without murmurs, rubs, or gallops. radial pulses intact. MUSCULOSKELETAL: Moves all extremities. No gross deformities. Mild limited range of motion of left shoulder flexion and abduction due to pain. Tenderness to palpation over lateral she superior left shoulder. Tenderness mildly in axillary region. No midline cervical spinal tenderness or tenderness over trapezius region. SKIN: Warm, dry, normal color. NEURO: A&O X3. Speech clear. Cranial nerves II-XII grossly intact. Steady gait. No ataxic movements.
[2023-10-13] MEDS: methylPREDNISolone SOD SUCC 125 MG VIAL IM (18:06)
[2023-10-13 18:12] VITALS: BP 113/70; PULSE 58; RESP 18; O2SAT 100
== END 2023-10-13 19:03 | disposition home or self-care (01) ==
PROVIDERS: Emergency Provider Physician Assistant; PCP Nurse Practitioner Family
DX: S46.912A Strain of unspecified muscle, fascia and tendon at shoulder and upper arm level, left arm, initial encounter (principal); E78.00 Pure hypercholesterolemia, unspecified; E66.9 Obesity, unspecified; Z68.31 Body mass index [BMI] 31.0-31.9, adult; K50.90 Crohn's disease, unspecified, without complications; G47.33 Obstructive sleep apnea (adult) (pediatric); F17.290 Nicotine dependence, other tobacco product, uncomplicated; X58.XXXA Exposure to other specified factors, initial encounter; Y93.64 Activity, baseball
CPT/HCPCS: 73030; 96372; 99283; A4565; J2919

== ENCOUNTER 2023-10-31 09:29 | Outpatient (CLI) | payer OTHER, SELFPAY ==
--- NOTE | ~2023-10-31 | MR_ITS ---
MRI of the left shoulder Technique: Axial proton-density fat-sat images, coronal proton density fat-sat and T2 fat-sat images, and sagittal T1-weighted and T2 fat-sat images were acquired. Clinical History: Injury Findings: No significant degenerative changes AC joint. Coracoclavicular, coracoacromial, and coracoh umeral ligaments are intact. Supraspinatus and infraspinatus tendons are intact, without partial or full-thickness tear. Subscapul kamari tendon is intact. There is minimal rotator cuff tendinosis. Tendon of long of the biceps is inta ct. No labral tear identified. Inferior glenohumeral ligament is intact. No degenerative change or effusion of the glenohumeral join t. No evidence for subacromial/subdeltoid bursitis. No muscle atrophy or edema seen. Impression: Minimal rotator cuff tendinosis. No other significant findings. Reviewed, dictated and finalized at [facility]. Impression: Minimal rotator cuff tendinosis. No other significant findings.
== END 2023-10-31 09:30 ==
LOC: MICIMG 09:30
PROVIDERS: PCP Orthopaedic Surgery; Visit Provider Orthopaedic Surgery
DX: M75.32 Calcific tendinitis of left shoulder (principal)
CPT/HCPCS: 73221

== ENCOUNTER 2024-01-30 15:09 | Outpatient (CLI) | payer OTHER, SELFPAY ==
[2024-01-30 15:47] LABS: Hematocrit 39.9 % (37.0-47.0); Hemoglobin 13.3 g/dL (12.0-15.0)
== END 2024-01-30 15:10 | disposition home or self-care (01) ==
PROVIDERS: Anesthesiology; PCP Nurse Practitioner Family; Visit Provider Surgery Plastic and Reconstructive Surgery
DX: L57.4 Cutis laxa senilis (principal)
CPT/HCPCS: 36415; 85014; 85018

== ENCOUNTER 2024-02-05 10:07 | Emergency (ER) | payer OTHER, SELFPAY ==
--- NOTE | ~2024-02-05 | CT_ITS ---
CT of the Abdomen and Pelvis: Indication: Abdominal pain, Crohn's disease Technique: 2.5 mm axial scans were obtained through the abdomen and pelvis following intravenous adm inistration of 100 cc of Omnipaque 350. Dose reduction technique was used on this scan by utilizing a utomated exposure control and iterative reconstruction technique. The dose-length product (DLP) was 6 60.76 mGy-cm. COMPARISON: 08/04/2023 Findings: Scans through the lung bases are unremarkable. The liver, spleen, pancreas, gallbladder, adrenals and kidneys are within normal limits. No evidence of aortic aneurysm. No lymphadenopathy. No bowel obstruction or bowel wall thickening. There is no evidence to suggest acute appendicitis. Images through the pelvis were performed. Questionable cystitis versus under distention of the urinar y bladder. No pelvic mass seen otherwise. No ascites. Impression: Questionable cystitis versus underdistention of urinary bladder. Correlate with urinalysis. Reviewed, dictated and finalized at [facility]. Impression: Questionable cystitis versus underdistention of urinary bladder. Correlate with urinalysis.
[2024-02-05 10:14] VITALS: BP 134/91; PULSE 86; RESP 18; TEMP 36.6; O2SAT 99
[2024-02-05 10:24] LABS: BEDSIDEPREGUCG Negative (Negative)
[2024-02-05 10:39] LABS: Add Urine Microscopic? YES; Appearance Urine Turbid (Clear); Bacteria Urine Rare /hpf; Bilirubin Urine Negative (Negative); Blood Urine 3+ (Negative); Color Urine Yellow (Yellow); Glucose Urine UA Negative (Negative); Ketones Urine Negative (Negative); Leukocyte Esterase Ur 1+ LEU/UL (Negative); Need Manual Microscopic Reviewed; Nitrate Urine Negative (Negative); Non Pathogenic Casts 0-2; Protein Urine Trace mg/dL (Negative); RBC Urine 51-100 /hpf (0-2); Specific Grav Ur 1.016 (1.001-1.035); Squamous Epithelial Cell Urine Many /hpf (Few); Urobilinogen Urine 0.2 mg/dL (<2.0); WBC Urine 21-50 /hpf (0-3)
--- NOTE | 2024-02-05 10:57 | ED.GENADULT ---
HPI - General Adult General Chief complaint: Unspecified Stated complaint: Flesh came out when urinating Time Seen by Provider: 02/05/24 10:17 History of Present Illness HPI narrative: 33-year-old female presenting to the emergency department for evaluation for suspected tissue passing during urination. Patient had been using Monistat for suspected yeast infection. Patient states she went to urinate and noticed some clots inside the toilet. Patient states she is currently on her menstrual cycle. Patient states she did he is and entire injectable to of vaginal Monistat last night. Related Data Home Medications Medication Instructions Recorded Confirmed lactobacillus combination no.8 3 3 cell PO DAILY 01/30/24 01/30/24 billion cell capsule Allergies Allergy/AdvReac Type Severity Reaction Status Date / Time methylprednisolone AdvReac Fainting Verified 02/05/24 10:13 Review of Systems Review of Systems: All systems reviewed & are unremarkable except as noted in HPI and below PMFSH Past Medical History Medical History Anxiety BMI 31.0-31.9,adult BMI 32.0-32.9,adult BMI 34.0-34.9,adult Chest discomfort Chest pain Crohn's disease Depression Eczema Elevated glucose Elevated LDL cholesterol level Fatigue Hernia History of blood transfusion Hypersomnia Increased frequency of urination Obesity TATO (obstructive sleep apnea) TATO on CPAP Screening for diabetes mellitus Shortness of Breath Snoring Stomach ulcer Surgical History Surgical History History of colon surgery Hx of appendectomy 2014 Family History Family History Father Hypertension Mother Hypertension COPD (chronic obstructive pulmonary disease) Heart disease Grandparent Cerebrovascular accident Social History Social History Smoking status: Former smoker Tobacco type: e-cigarettes/vaping Second hand tobacco smoke exposure: No Smoking end date: 09/17/23 Additional smoking assessment comments: VAPED X6 MONTH, QUIT 09/17/23 Alcohol intake: current Drinks per week: 1 Alcohol use details: RARELY Substance use: former Substance use type: marijuana Other substance usage details: WEED PEN FOR APPROX ~3 YRS, QUIT ~04/18/23 Last use: 2021 Lack of Transportation: No Lack of Food: Never True Current Housing: I Have Housing Concerned About Future Housing: No Difficulty Paying Gas/Electric Bills: No Difficulty Paying for Meds: No Currently Unemployed: No Education: Associate Degree Difficulty w/ Childcare or Family Care: No Living arrangements: with family Additional living arrangements comments: HUSB AND 3 CHILDREN Gender identity (if verbalized by the patient): Female Sexual Orientation (if Verbalized by the Patient): Straight or Heterosexual Spiritual care concerns: No Exam Narrative: APPEARANCE: Well appearing, no pain, no distress, well-nourished. HEAD: normocephalic, atraumatic. EYES: PERRLA/EOMI, conjunctivae clear. NOSE: Normal no drainage EARS:TMS clear with good light reflex. THROAT: Pharynx clear, no exudate. NECK: Supple. No adenopathy, no masses. RESPIRATORY: Airway patent, respirations nonlabored. Clear to auscultation bilaterally, no rales, rhonchi, wheezing. CARDIOVASCULAR: Regular rate and rhythm without murmurs rubs or gallops. ABDOMINAL: Soft, nontender, nondistended, normal bowel sounds MUSCULOSKELETAL: Moves all extremities. Strength/ROM intact, No edema, No calf tenderness. NEURO: Alert. Cranial nerves II through XII intact. Good gait. Good coordination SKIN: Warm, dry. Normal Color Pelvic exam: Blood tinged white discharge is in the vagina thought to be Monistat mixed with menses. Course Vital Signs Vital signs: Vital Signs
[2024-02-05 12:15] LABS: Basophils Percent Auto 0.2 % (0.2-1.2); Eosinophils Absolute Auto 0.1 K/mm3 (0-0.3); Eosinophils Percent Auto 0.9 % (0-4.4); Hematocrit 41.8 % (37.0-47.0); Hemoglobin 14.3 g/dL (12.0-15.0); Immature Granulocyte Absolute 0.02 K/mm3 (0.00-0.031); Immature Granulocyte Percent A 0.4 % (0-0.5); Lymphocytes Absolute Auto 1.32 K/mm3 (0.9-3.2); Lymphocytes Percent Auto 23.9 % (18.3-44.2); Mean Corpuscular HGB Conc 34.2 g/dl (32-36); Mean Corpuscular Hemoglobin 30.1 pg (26-34); Mean Platelet Volume 9.7 fl (7.4-10.4); Monocytes Absolute Auto 0.5 K/mm3 (0.1-0.6); Monocytes Percent Auto 8.3 % (2.6-8.5); Neutrophils Absolute Auto 3.7 K/mm3 (1.3-6.7); Neutrophils Percent Auto 66.3 % (45.5-73.1); Platelet Count Result 221 k/mm3 (150-375); Red Blood Count 4.75 M/mm3 (4.2-5.4); Red Cell Distribution Width 12.5 % (11.5-14.5); White Blood Count 5.5 K/mm3 (4.5-10.0)
[2024-02-05 12:24] LABS: Prothrombin Time 13.4 Seconds (11.1-14.7)
[2024-02-05 12:25] LABS: Partial Thromboplastin Time 28.7 Seconds (22.3-36.8)
[2024-02-05 12:27] LABS: Alanine Aminotransferase 25 U/L (6-35); Albumin Level 4.3 g/dL (3.5-5.1); Alkaline Phosphatase 49 U/L (38-126); Anion Gap 6 mmol/L (4-12); Aspartate Amino Transferase 28 U/L (14-36); Bilirubin,Total 0.6 mg/dL (0.2-1.3); Blood Urea Nitrogen 14 mg/dL (7-17); Calcium 9.4 mg/dL (8.4-10.2); Carbon Dioxide 27 mmol/L (22-30); Chloride 104 mmol/L (98-107); Estimated Glomerular Filt Rate > 60; Glucose 87 mg/dL (65-110); Potassium 4.5 mmol/L (3.4-5.0); Sodium 137 mmol/L (137-145)
[2024-02-05 15:07] LABS: Trichomonas Vag PCR NOT DETECTED (NOT DETECTE)
[2024-02-05 15:32] LABS: Chlamydia trachomatis NOT DETECTED (NOT DETECTE); Neisseria gonorrhoeae PCR NOT DETECTED (NOT DETECTE)
[2024-02-05] MEDS: FLUCONAZOLE 150 MG TABLET PO (16:08)
[2024-02-05] MEDS: CEPHALEXIN 500 MG CAPSULE PO (16:08)
[2024-02-05 16:16] VITALS: BP 136/84; PULSE 84; RESP 16; O2SAT 98
== END 2024-02-05 16:18 | disposition home or self-care (01) ==
PROVIDERS: Emergency Provider Emergency Medicine; PCP Nurse Practitioner Family
DX: N39.0 Urinary tract infection, site not specified (principal); B37.31 Acute candidiasis of vulva and vagina
CPT/HCPCS: 36415; 74177; 80053; 81001; 81025; 85025; 85610; 85730; 87070; 87075; 87077; 87086; 87186; 87205; 87491; 87591; 87661; 99284; A9270; Q9967

== ENCOUNTER 2024-02-07 02:57 | Day surgery (SDC) | payer OTHER, SELFPAY ==
[2024-01-30 08:50] VITALS: BMI 34.4
--- NOTE | 2024-01-30 09:22 | PC.NURSE ---
Report to the Outpatient Waiting Room, entrance under the green pavilion located off [facility], at time ___7:00AM____ on date ___02/07/24____. Planned Procedure Time: ___9:00AM .? Time changes happen often and if your time is changed the preop area will call you the afternoon before. - You and your visitor will be asked to self-screen and do not enter if you have any COVID symptoms. Please call surgeon if you need to reschedule. - A mask is optional within the hospital at this time. Patients may have clear liquids (water, carbonated beverages, clear teas, apple juice) until 3 hours prior to surgery with a maximum of 20 ounces. - No food from midnight until time of surgery and no smoking. Take only the following medications with a SIP of water on the morning of surgery: NONE DO NOT STOP ANY OF YOUR OTHER PRESCRIPTION MEDICATIONS PRIOR TO SURGERY EXCEPT THE FOLLOWING Medications to discontinue per physician HOLD ALL VITAMINS/SUPPLEMENTS 3 DAYS PRE-OP PER ANESTHESIA.__ Date to take last dose 02/03/24 Please no make-up, nail estonian, hairspray, perfume, deodorant, or body powder the day of surgery.? No jewelry (including any body piercings) or valuables the day of surgery, leave them at home.? Please take a shower or bath the night before, or the morning of, surgery with an antibacterial soap.? Wear comfortable, loose fitting clothing.? - Jewelry must be removed prior to entering the operating room.? Rings and piercings that are not removed may be cut off. - The hospital will not accept responsibility for valuables.? - Please leave all valuables, including medications, at home the day of surgery. If you are going home after surgery, a licensed motorcoach driver must drive you home.? - NO public transportation without another adult if you receive anesthesia. - We recommend that an adult stay with you for 24 hours following discharge. - We also recommend that you do not drive, make important decision, drink alcoholic beverages, or take any drugs that were not prescribed by your health care provider for at least 24 hours after your discharge time. Follow any additional instructions given to you from your surgeon. Telephone instructions given to ___PATIENT and asked if any additional questions and then verbalized understanding. Patient advised to call surgeon office or pre surgery nurse liaison [phone] if any additional questions.
[2024-02-07] VITALS (9 sets, daily range): BP systolic 110–165; BP diastolic 67–113; PULSE 85–120; RESP 12–16; TEMP 36.5–36.7; O2SAT 95–100
[2024-02-07 06:43] LABS: Urine Cotinine NEGATIVE
[2024-02-07] MEDS: LACTATED RINGERS 1,000 ML 30 ML IV CONT ×2 (07:15→16:43)
[2024-02-07 07:38] LABS: BEDSIDEPREGUCG Negative (Negative)
--- NOTE | 2024-02-07 08:00 | WPDANESEPPF ---
Anes - Initial Pre Proc Eval Procedure: Operation Date: 02/07/24 09:00 Proposed Procedures p Abdominoplasty with Liposuction, - Ifeanyi Lamb MD s Bilateral Breast Augmentation with Bilateral Breast Mastopexy - Ifeanyi Lamb MD Date/Time: 02/07/24 08:00 Surgeon: Ifeanyi Lamb MD Pre Op Diagnosis: Skin Laxity, Breast Ptosis Patient Data Age: 33 Gender: F Height: 1.63 m Weight: 92.8 kg Last Vital Signs Temp 36.7 C 02/07/24 07:28 Pulse 85 02/07/24 07:28 Resp 16 02/07/24 07:28 BP 110/67 02/07/24 07:28 Pulse Ox 99 02/07/24 07:28 O2 Del Method Room Air 02/07/24 07:28 Allergies Allergy/AdvReac Type Severity Reaction Status Date / Time methylprednisolone AdvReac Fainting Verified 02/07/24 07:21 Home Medications Medication Instructions Recorded Confirmed Type lactobacillus combination no.8 3 3 cell PO DAILY 01/30/24 02/07/24 History billion cell capsule cephalexin 500 mg capsule 500 mg PO Q8H 7 days #21 caps 02/05/24 Rx fluconazole 150 mg tablet 150 mg PO ONCE #1 tablet 02/05/24 Rx Laboratory Tests 02/07/24 02/07/24 06:26 07:35 POC Urine HCG, Qual Negative (Negative) Cotinine Negative Patient hx anesthesia problems: none Family hx anesthesia problems: none Results Review: All pre-operative results and documents have been reviewed as part of the pre-operative evaluation. [facility] Past Medical History Medical History Anxiety BMI 31.0-31.9,adult BMI 32.0-32.9,adult BMI 34.0-34.9,adult Chest discomfort Chest pain Crohn's disease Depression Eczema Elevated glucose Elevated LDL cholesterol level Fatigue Hernia History of blood transfusion Hypersomnia Increased frequency of urination Obesity TATO (obstructive sleep apnea) TATO on CPAP Screening for diabetes mellitus Shortness of Breath Snoring Stomach ulcer Surgical History Surgical History History of colon surgery Hx of appendectomy 2014 Family History Family History Father Hypertension Mother Hypertension COPD (chronic obstructive pulmonary disease) Heart disease Grandparent Cerebrovascular accident Social History Social History Smoking status: Former smoker Tobacco type: e-cigarettes/vaping Second hand tobacco smoke exposure: No Smoking end date: 09/17/23 Additional smoking assessment comments: VAPED X6 MONTH, QUIT 09/17/23 Alcohol intake: current Drinks per week: 1 Alcohol use details: RARELY Substance use: former Substance use type: marijuana Other substance usage details: WEED PEN FOR APPROX ~3 YRS, QUIT ~04/18/23 Last use: 2021 Lack of Transportation: No Lack of Food: Never True Current Housing: I Have Housing Concerned About Future Housing: No Difficulty Paying Gas/Electric Bills: No Difficulty Paying for Meds: No Currently Unemployed: No Education: Associate Degree Difficulty w/ Childcare or Family Care: No Living arrangements: with family Additional living arrangements comments: HUSB AND 3 CHILDREN Gender identity (if verbalized by the patient): Female Sexual Orientation (if Verbalized by the Patient): Straight or Heterosexual Spiritual care concerns: No Anes - Eval Final PreProcedure Day of Procedure 02/07/24 08:00 Patient weight: obese Heart: regular rate and rhythm Lungs: clear to auscultation Airway: Mallampati scale class II Neurological: alert and oriented Last oral intake: >/= 8 hours ASA classification: III Emergent: no Anesthetic plan: proceed Anesthesia type and monitoring: general ETT and standard monitoring Results Review: All pre-operative results and documents have been reviewed as part of the pre-operative evaluation. Informed Consent: The patient's
[2024-02-07] MEDS: SCOPOLAMINE 1 MG PATCH 1 PATCH TRANSDERM (08:58)
--- NOTE | 2024-02-07 08:58 | WPDHPUPDATE1 ---
History and Physical Update Update Date/Time: 02/07/24 08:58 History and Physical has been reviewed, including an updated exam of the patient. There are NO changes in the patient's condition. Risks, benefits, and alternatives have been discussed and questions answered. Patient agrees to proceed with procedure.
--- NOTE | 2024-02-07 08:58 | W.PM.PROC2 ---
Procedure Note - Detailed Date of Procedure 02/07/24 Pre-op Diagnosis Skin Laxity, Breast Ptosis Post-op Diagnosis Same Procedure Performed 1. Bilateral augmentation mastopexy with Galaflex 2. Progressive tension abdominoplasty with suction lipectomy Surgeon Ifeanyi Lamb MD Anesthesia General Findings Inverted T Superior medial pedicle Bilateral Manjinder Snider SoftTouch 520cc Subfascial Right - REF# [id number] SN [id number] Left - REF# [id number] SN [id number] Galaflex REF# [id number] Description of Procedure They are here today for the above procedures. Previously and again today the risks, benefits, alternatives were discussed in extensive detail. I wanted them to be very realistic about the risks involved as well as expectations. she does wish to proceed subfascial for augmentation (listed as subglandular in H&P). Further she was in the emergency room 48 hours ago with a UTI. She was treated and symptoms have fully resolved. We discussed her options and the risks involved with a recent UTI. She understands this as it was very clearly outlined and she was able to repeat these risks back and is willing to accept that risk and would like to proceed. We discussed aftercare and what to monitor for. She did have a pre-operative CT scan to r/o recurrence of hernia. I was very upfront about the risks of wound breakdown leading to loss of skin, open wounds, and need for additional procedures with permanent abdominal deformity. We discussed DVT/PE risks and management. Made sure answered all of their questions to their satisfaction today and consent was obtained. They were marked in the preoperative holding area with their verification. The patient was taken to the operating room. Anesthesia was provided by anesthesiology. A Lorenzo catheter was started. Posterior Placed prone on the operating room table with care taken to protect from injury. Prepped and draped in a standard sterile fashion. A surgical time-out was taken. Stab incisions were made and tumescent solution was infiltrated. Once adequate time was allowed for hemostasis a 5mm basket and 3mm multi hole cannula were utilized to complete suction lipectomy based on S.A.F.E. technique in multiple planes and passes. Suction lipectomy continued to result based on pre-operative planning, intra-operative observation, and rolling pinch test which were in full agreement. Patient was then placed supine with care taken to protect from injury. Breast She was prepped and draped in a standard sterile fashion. Tegaderm nipple Blackwell were placed. Stab incisions made and tumescent utilized laterally. Suction lipectomy was completed laterally with 5-0 basket and 4-0 edis cannula. A 15 blade used to make an incision just superior to the inframammary fold leaving a cusp of de-epithelized tissue at the t junction. Dissection was continued until the chest wall as identified. I elevated a subfascial pocket in the appropriate dimensions based on our preoperative planning for the implant. I then copiously irrigated with saline solution and verified a strict hemostasis. Next the use a triple antibiotic and Betadine containing solution to irrigate the pocket. I washed my gloves with the triple antibiotic and Betadine solution. We washed the implant immediately upon opening it with this solution and only opened it when we needed it. I used implant funnel and no-touch technique. The implant was introduced into the pocket using the funnel. Having verified positioning of the implant this was closed using 2-0 PDS. I tailor tacked the breast into position. Placed her in a sitting position. Verified the nipple-areolar location based on preoperative planning as well as intraoperative observations and measurements in full agreement. She was placed supine. I de-epithelialized the pedicle. I then removed the inferior central portion of the breast need making sure the implant wa
[2024-02-07] MEDS: ceFAZolin 2 GM/D5W 50 ML 2 GM/50 ML BAG IVPB (09:16)
[2024-02-07] MEDS: TRANEXAMIC ACID 1,000MG/ISO100 1,000 MG/100 ML BAG 200 MG IVPB (09:16)
[2024-02-07] MEDS: BUPivacaine HCL 0.5% PF 30 ML VIAL INFILTRATE (10:21)
[2024-02-07] MEDS: ceFAZolin SODIUM 1 GM VIAL 2 GM IV PUSH (14:30)
[2024-02-07] MEDS: NACL 0.9% IRRIG POUR BOTTLE 900 ML, GENTAMICIN SULFATE INJ 160 MG, ceFAZolin 2 GM, POVI... IRRIGATION (14:33)
[2024-02-07] MEDS: LACTATED RINGERS IRRIG 1,000 ML, LIDOCAINE HCL 1% LOCAL INJ 50 ML, EPINEPHrine HCL INJ ... INFILTRATE (14:33)
[2024-02-07] MEDS: fentaNYL CITRATE INJ (*CRX) 100 MCG/2 ML VIAL 25 MCG IV PUSH ×4 (17:22→17:48)
[2024-02-07] MEDS: LABETALOL HCL INJ 100 MG/20 ML VIAL 10 MG IV PUSH (17:40)
--- NOTE | 2024-02-07 17:42 | SUR.PHASEI ---
1742: Simple mask removed.
[2024-02-07] MEDS: ONDANSETRON INJ 4 MG/2 ML VIAL IV PUSH (18:28)
[2024-02-07] MEDS: oxyCODONE HCL (*CRX) 5 MG TAB IR PO (18:39)
== END 2024-02-07 19:20 | disposition home or self-care (01) ==
PROVIDERS: PCP Nurse Practitioner Family; Visit Provider Surgery Plastic and Reconstructive Surgery
PROC: (CPT 19316; principal; 2024-02-07 09:00)
PROC: (CPT 19316; 2024-02-07 09:00)
DX: Z41.1 Encounter for cosmetic surgery (principal); L57.4 Cutis laxa senilis; N64.81 Ptosis of breast; G47.30 Sleep apnea, unspecified; K50.90 Crohn's disease, unspecified, without complications; F41.9 Anxiety disorder, unspecified; F32.A Depression, unspecified; E78.00 Pure hypercholesterolemia, unspecified; G47.10 Hypersomnia, unspecified; G47.33 Obstructive sleep apnea (adult) (pediatric); F12.90 Cannabis use, unspecified, uncomplicated; E66.9 Obesity, unspecified; Z68.35 Body mass index [BMI] 35.0-35.9, adult; Z99.89 Dependence on other enabling machines and devices; Z98.890 Other specified postprocedural states; Z90.49 Acquired absence of other specified parts of digestive tract; Z87.891 Personal history of nicotine dependence; Z82.49 Family history of ischemic heart disease and other diseases of the circulatory system
CPT/HCPCS: 19316; 19325; 15777 ×2; 15877; 15830; 15847; 80307; A9270; J0171; J0330; J0690; J1100; J1171; J1200; J1580; J2003; J2004; J2250; J2405; J3010; J7120

== ENCOUNTER 2024-02-11 18:56 | Inpatient (IN) | payer OTHER, SELFPAY ==
[2024-02-11] VITALS (22 sets, daily range): BP systolic 108–154; BP diastolic 74–110; PULSE 64–106; RESP 13–25; TEMP 36.8–37.2; O2SAT 98–100; BMI 35.9
--- NOTE | ~2024-02-11 | CT_ITS ---
EXAMINATION: CTA chest PE abdomen pel DATE: 02/11/2024 20:54 INDICATION: Chest pain. Postoperative. High d-dimer. TECHNIQUE: Computed tomography angiography (CTA) of the chest was performed with 100 mL Omnipaque-350 intravenous contrast timed to evaluate the pulmonary arteries. Coronal maximum intensity projection 3D-reconstructions were created by the technologist. Automated exposure control and iterative reconst ruction technique were employed. Exam dose: 1781.67 mGy-cm total exam DLP. COMPARISON: 02/11/2024 AP chest FINDINGS: There is limited pulmonary embolism at the left lower lobe. There is edema of the chest and abdominal murray. There is subcutaneous emphysema of the right, mid and left anterior chest and abdominal murray. Bilateral breast implants. Normal heart size. No hilar or mediastinal mass lesion or lymphadenopathy. No thoracic aortic aneurys m or dissection. No pericardial or pleural effusion. The liver, gallbladder, bile ducts spleen, pancreas, pancreatic duct and adrenal glands are unremarka ble. The uterus, adnexal areas and urinary bladder are unremarkable. Normal caliber of the abdominal aorta. No intraperitoneal or retroperitoneal or pelvic mass lesion or adenopathy or ascites. No bowel obstruction or intraperitoneal free air. No suspicious osteolytic or osteoblastic lesions are noted. IMPRESSION: Limited left lower lobe pulmonary embolism Edema of subcutaneous emphysema of the chest and abdominal murray Reviewed, dictated and finalized at [facility]. Reviewed, dictated and finalized at [facility].
--- NOTE | ~2024-02-11 | XR_ITS ---
XR chest 1V DATE: 02/11/2024 19:31 INDICATION: Chest pain. Recent surgery. TECHNIQUE: AP chest COMPARISON: 07/20/2023 PA and lateral chest FINDINGS: There are patchy infiltrates and/or atelectasis in the mid and particularly lower lung zone s. Normal heart size. Coronary vascularity appears within normal limits. Small pleural effusions cannot be excluded. No pneumothorax. Included skeletal structures are unremarkable.. IMPRESSION: Patchy bilateral mid and particularly lower lung infiltrate and/or atelectasis Reviewed, dictated and finalized at [facility].
--- NOTE | 2024-02-11 19:07 | ECG_ITS ---
Test Date: 2024-02-11 19:04:13 Measurements Intervals [place] Rate: 90 P: 48 WV: 167 QRS: 42 QRSD: 77 T: 14 QT: 327 QTc: 401 Interpretive Statements SINUS RHYTHM NORMAL ECG No previous ECG available for comparison Electronically Signed On 02-12-2024 13:07:02 CDT by Sriram Pimentel M.D.
[2024-02-11 19:28] LABS: Basophils Percent Auto 0.3 % (0.2-1.2); Eosinophils Absolute Auto 0.2 K/mm3 (0-0.3); Eosinophils Percent Auto 2.4 % (0-4.4); Hematocrit 27.9 % (37.0-47.0); Hemoglobin 8.9 g/dL (12.0-15.0); Immature Granulocyte Absolute 0.02 K/mm3 (0.00-0.031); Immature Granulocyte Percent A 0.3 % (0-0.5); Lymphocytes Absolute Auto 1.21 K/mm3 (0.9-3.2); Mean Corpuscular HGB Conc 31.9 g/dl (32-36); Mean Corpuscular Hemoglobin 28.9 pg (26-34); Mean Corpuscular Volume 90.6 fl (80-100); Mean Platelet Volume 9.1 fl (7.4-10.4); Monocytes Absolute Auto 0.5 K/mm3 (0.1-0.6); Monocytes Percent Auto 6.1 % (2.6-8.5); Neutrophils Absolute Auto 5.7 K/mm3 (1.3-6.7); Neutrophils Percent Auto 74.9 % (45.5-73.1); Platelet Count Result 270 k/mm3 (150-375); Red Blood Count 3.08 M/mm3 (4.2-5.4); Red Cell Distribution Width 12.3 % (11.5-14.5); White Blood Count 7.5 K/mm3 (4.5-10.0)
[2024-02-11 19:40] LABS: Prothrombin Time 13.6 Seconds (11.1-14.7)
[2024-02-11 19:42] LABS: Alanine Aminotransferase 27 U/L (6-35); Albumin Level 3.3 g/dL (3.5-5.1); Alkaline Phosphatase 61 U/L (38-126); Anion Gap 4 mmol/L (4-12); Aspartate Amino Transferase 34 U/L (14-36); Bilirubin,Total 0.5 mg/dL (0.2-1.3); Blood Urea Nitrogen 16 mg/dL (7-17); Calcium 8.7 mg/dL (8.4-10.2); Carbon Dioxide 30 mmol/L (22-30); Chloride 102 mmol/L (98-107); Estimated CRCL calculation 111 ml/min; Estimated Glomerular Filt Rate > 60; Glucose 99 mg/dL (65-110); Lipase 70 U/L (23-300); Potassium 4.1 mmol/L (3.4-5.0); Sodium 136 mmol/L (137-145)
[2024-02-11 19:50] LABS: D Dimer 1.04 ug/mL (<0.48)
[2024-02-11 19:56] LABS: Troponin I < 0.012 ng/mL (0.000-0.034)
[2024-02-11 19:58] LABS: BEDSIDEPREGUCG Negative (Negative)
[2024-02-11] MEDS: ONDANSETRON INJ 4 MG/2 ML VIAL IV PUSH (20:15)
[2024-02-11] MEDS: HYDROmorphone HCL INJ (*CRX) 1 MG/ML SYR 0.5 MG IV PUSH (20:16)
--- NOTE | 2024-02-11 20:24 | ED_ITS ---
HPI - Chest Pain General Chief Complaint: Chest Pain Stated Complaint: CHEST PAIN Time Seen by Provider: 02/11/24 19:22 History of Present Illness HPI narrative: 33-year-old female who is postop day 4 from a bilateral breast augmentation, tension abdominal plasty and suction lipectomy. She presents to the emergency department today with a chest pressure and chest pain sensation or difficulty in breathing. She states that she went home from her procedure on Tuesday and followed up with her plastic surgeon the following day. She had her drain removed and went home. She has been using her abdominal binder correctly and taking her medications at home including Percocet. She states that tonight while she was resting watching TV she noticed a tight sensation in her chest that was like somebody was sitting on her. Got worse throughout the evening and they called 911 for assistance. Presently patient states that the pressure sensation is sub xiphoid, nonradiating, associated with mild chest discomfort. Denies any nauseous, vomiting, wound dehiscence, wound drainage. No increasing pain from the incision sites. Incisions appear clean, dry, intact. Did not speak to her plastic surgeon prior to arrival. Related Data Home Medications Medication Instructions Recorded Confirmed lactobacillus combination no.8 3 3 cell PO DAILY 01/30/24 02/07/24 billion cell capsule carisoprodol 350 mg tablet mg 02/11/24 docusate sodium 100 mg capsule mg PO 02/11/24 enoxaparin 40 mg/0.4 mL mg 02/11/24 subcutaneous syringe ondansetron HCl 4 mg tablet mg 02/11/24 oxycodone-acetaminophen 5 mg-325 tablet 02/11/24 mg tablet Allergies Allergy/AdvReac Type Severity Reaction Status Date / Time methylprednisolone AdvReac Fainting Verified 02/07/24 07:21 Review of Systems Review of Systems: As reviewed above in HPI [facility] Past Medical History Medical History Anxiety BMI 31.0-31.9,adult BMI 32.0-32.9,adult BMI 34.0-34.9,adult Chest discomfort Chest pain Crohn's disease Depression Eczema Elevated glucose Elevated LDL cholesterol level Fatigue Hernia History of blood transfusion Hypersomnia Increased frequency of urination Obesity TATO (obstructive sleep apnea) TATO on CPAP Screening for diabetes mellitus Shortness of Breath Snoring Stomach ulcer Surgical History Surgical History History of colon surgery Hx of appendectomy 2014 Family History Family History Father Hypertension Mother Hypertension COPD (chronic obstructive pulmonary disease) Heart disease Grandparent Cerebrovascular accident Social History Social History Smoking status: Former smoker Second hand tobacco smoke exposure: No Additional smoking assessment comments: VAPED X6 MONTH, QUIT 09/17/23 Alcohol intake: current Drinks per week: 1 Alcohol use details: RARELY Substance use: former Substance use type: marijuana Other substance usage details: WEED PEN FOR APPROX ~3 YRS, QUIT ~04/18/23 Last use: 2021 Lack of Transportation: No Lack of Food: Never True Current Housing: I Have Housing Concerned About Future Housing: No Difficulty Paying Gas/Electric Bills: No Difficulty Paying for Meds: No Currently Unemployed: No Education: Associate Degree Difficulty w/ Childcare or Family Care: No Living arrangements: with family Additional living arrangements comments: HUSB AND 3 CHILDREN Gender identity (if verbalized by the patient): Female Sexual Orientation (if Verbalized by the Patient): Straight or Heterosexual Spiritual care concerns: No Exam Narrative: GENERAL: [Well-appearing, well-nourished, and in no acute distress.] HEAD: [Normocephalic, atraumatic.] EYES: [PERRLA and EOMI.] ENT: Nares clear, no rhinorrhea or epistaxis. Mucous membranes moist. NECK: Supple. CHEST: Chest is clear to auscultation without any respiratory distress or tachypnea. Surgical and underneath the breast tissue and inferior to the areola appear clean, dry, intact with normal postoperative swelling. HEART: [Regular rate and rhythm]. No murmur heard. [Normal peripheral pulses.] ABDOMEN: [Soft, nondistended], tender to palpation over the incision sites from her previous surgery with clean, dry, intact suture lines, [No rigidity or guarding] EXTREMITIES: Normal range of motion. [No edema.] SKIN: Warm, dry, no rash. NEURO: [No focal deficits]. Alert and oriented [x3.] PSYCH: [Normal mood and affect.] Course Vital Signs Vital signs: Vital Signs Temperature 37.2 C 02/11/24 18:47 Pulse Rate 98 02/11/24 18:47 Respiratory Rate 17 02/11/24 18:47 Blood Pressure 154/91 H 02/11/24 18:47 Pulse Oximetry 98 02/11/24 18:47 Oxygen Delivery Room Air 02/11/24 18:47 Temperature 36.8 C 02/11/24 23:24 Pulse Rate 98 02/11/24 23:31 Respiratory Rate 20 02/11/24 23:31 Blood Pressure 113/88 02/11/24 23:24 Pulse Oximetry 100 02/11/24 23:31 Oxygen Delivery Room Air 02/11/24 23:31 MDM - Chest Pain MDM Narrative Medical decision making narrative: 33-year-old female that is postop day 4 from her multiple plastic surgery procedures. Presents to the emergency department with chest pressure sensation and difficulty breathing. Saw her plastic surgeon postop day 1 with removal of her drains and sent home with abdominal binder and Percocet for pain. She has been healing well according to her and her surgeons do appear clean, dry, intact normal postoperative swelling and pain but no drainage, erythema or signs of soft tissue infection. She has clear breath sounds bilaterally and saturating 100% on room air without any fever. Chest pain protocol workup was ordered in triage. Differential diagnosis broad but could include postoperative infection such as pneumonia, atelectasis, less likely thromboembolic event although postoperatively she is at risk for DVT/PE. No leg swelling noted. Low risk for ACS. Workup did revealed a white count of 7.5 without any leukocytosis. Hemoglobin markedly low at 8.9 and her previous levels 14.3 just 6 days prior. Normal postoperative drop his expected but this seems slightly higher than that which raises concern that could be blood loss somewhere. Chemistry panel shows no electrolyte deficiencies, normal renal function panel. Normal hepatic function panel. Negative initial troponin. D-dimer was elevated 1.06. X-ray was independent reviewed and also interpreted by radiology with patchy bilateral airspace opacities which could be infiltrates versus atelectasis. She does not have any other signs of pneumonia at this time so we will obtain further investigate studies including a CT angio of the chest with PE protocol and a CT abdomen pelvis with contrast for the low hemoglobin. Patient denies any dark or tarry stools. Patient CT scan was independently reviewed by myself and also interpreted by radiology. There is a left lower lobe pulmonary embolism and subcutaneous em physema and edema from the recent procedure. On my interpretation is also bilateral pneumonia which is seen on the chest x-ray as well. Patient was already on prophylactic Lovenox injections at home but she did not this today according to the patient and family at bedside. I reached out and spoke to patient's plastic surgeon and relayed the patient's presentation, imaging findings and our plan of care ventilating the patient. He agreed to be on consult for the patient and see her in the morning. Patient was given a full therapeutic dose of Lovenox 1 milligram/kilogram weight based for the pulmonary embolism. Serial H&Hs were ordered as well as PT and PTT. Patient was informed of her laboratory findings and imaging studies and was agreeable to admission at this time. I spoke to the hospitalist who also recommended switching to heparin for potential interventions if they hemoglobin were to drop further. This will be scheduled for 12 hours after initial dose without any bolus given that she is already therapeutic after consulting Pharmacy for recommendations. She was started on Zosyn for her pneumonia and will be admitted to a telemetry monitored bed at this time. Patient was agreeable to admission at this time. Repeat H&H showed improvement in hemoglobin after the Lovenox which makes me more reassured that there is no active bleeding and this anemia is postoperative. Medical Records Data Attestation: I reviewed the patient's medical records. Lab Data Attestation: I reviewed the patient's lab results. 02/11/24 23:49 02/11/24 19:23 Labs: Lab Results 02/11/24 02/11/24 Range/Units 19:23 19:56 WBC 7.5 (4.5-10.0) K/mm3 RBC 3.08 L (4.2-5.4) M/mm3 Hgb 8.9 L D (12.0-15.0) g/dL Hct 27.9 L (37.0-47.0) % MCV 90.6 (80-100) fl MCH 28.9 (26-34) pg MCHC 31.9 L (32-36) g/dl RDW 12.3 (11.5-14.5) % Plt Count 270 (150-375) k/mm3 MPV 9.1 (7.4-10.4) fl Immature Gran % (Auto) 0.3 (0-0.5) % Neut % (Auto) 74.9 H (45.5-73.1) % Lymph % (Auto) 16.0 L (18.3-44.2) % White % (Auto) 6.1 (2.6-8.5) % Eos % (Auto) 2.4 (0-4.4) % Baso % (Auto) 0.3 (0.2-1.2) % Lymph # (Auto) 1.21 (0.9-3.2) K/mm3 White # (Auto) 0.5 (0.1-0.6) K/mm3 Eos # (Auto) 0.2 (0-0.3) K/mm3 Baso # (Auto) 0.0 (0.0-0.1) K/mm3 Abs Immat Gran (auto) 0.02 (0.00-0.031) K/mm3 Absolute Neuts (auto) 5.7 (1.3-6.7) K/mm3 Absolute Nucleated RBC 0.000 (0.0-0.012) K/mm3 Nucleated RBC % 0.0 (0.0-0.2) % PT 13.6 (11.1-14.7) Seconds INR 1.0 APTT 36.0 (22.3-36.8) Seconds D-Dimer 1.04 H (<0.48) ug/mL Sodium 136 L (137-145) mmol/L Potassium 4.1 (3.4-5.0) mmol/L Chloride 102 (98-107) mmol/L Carbon Dioxide 30 (22-30) mmol/L Anion Gap 4 (4-12) mmol/L BUN 16 (7-17) mg/dL Creatinine 0.70 (0.7-1.0) mg/dL Estim Creat Clear Calc 111 ml/min Estimated GFR > 60 (59 - ) Glucose 99 (65-110) mg/dL Calcium 8.7 (8.4-10.2) mg/dL Total Bilirubin 0.5 (0.2-1.3) mg/dL AST 34 (14-36) U/L ALT 27 (6-35) U/L Alkaline Phosphatase 61 (38-126) U/L Troponin I < 0.012 (0.000-0.034) ng/mL Total Protein 7.0 (6.3-8.2) g/dL Albumin 3.3 L (3.5-5.1) g/dL Lipase 70 (23-300) U/L POC Urine HCG, Qual Negative (Negative) Imaging Data Attestation: I personally reviewed and interpreted this imaging study as follows: Radiologist's impression: Impressions Chest X-Ray 02/11/24 19:45 IMPRESSION: Patchy bilateral mid and particularly lower lung infiltrate and/or atelectasis Chest/Abdomen/Pelvis CTA 02/11/24 21:07 IMPRESSION: Limited left lower lobe pulmonary embolism Edema of subcutaneous emphysema of the chest and abdominal murray Critical Care Time Critical Care Time Critical Care Time: Yes Total Critical Care Time: 35 Discharge Plan Discharge Clinical Impression: Pulmonary embolism, Pneumonia Patient Disposition: Still a Patient Condition: Stable Time of Disposition: 22:05
--- NOTE | 2024-02-11 20:26 | PC.NURSE ---
Patient taken to CT via stretcher at this time.
[2024-02-11] MEDS: ENOXAPARIN 100 MG/ML SYRINGE 95 MG SUB-Q (21:42)
[2024-02-11] MEDS: PIPERACILLIN/TAZ 4.5G/NS 100ML 4.5 GM/100 ML BAG IVPB (22:21)
--- NOTE | 2024-02-11 23:43 | ADMGEN ---
This patient, Agnieszka Sykes, was admitted to Medical Room 250-01. Patient/family oriented to hospital policies and general routines including ID bracelet, bed and alarms, visiting hours, pain management, procedures, bathroom and other care routines, personal items, smoking policy, room service/diet, and visiting hours. Information on how to activate the Rapid Response Team has been discussed. Patient/Family are encouraged to report perceived risks to care and to ask questions if they do not understand what they are told or what they should do.
[2024-02-11 23:50] LABS: MRSA (PCR) NOT DETECTED (NOT DETECTE)
[2024-02-11 23:54] LABS: Basophils Percent Auto 0.1 % (0.2-1.2); Eosinophils Absolute Auto 0.2 K/mm3 (0-0.3); Eosinophils Percent Auto 2.3 % (0-4.4); Hematocrit 32.5 % (37.0-47.0); Hematocrit 33.1 % (37.0-47.0); Hemoglobin 10.8 g/dL (12.0-15.0); Immature Granulocyte Absolute 0.04 K/mm3 (0.00-0.031); Immature Granulocyte Percent A 0.5 % (0-0.5); Lymphocytes Absolute Auto 1.27 K/mm3 (0.9-3.2); Lymphocytes Percent Auto 16.9 % (18.3-44.2); Mean Corpuscular HGB Conc 33.2 g/dl (32-36); Mean Corpuscular Hemoglobin 29.8 pg (26-34); Mean Corpuscular Volume 89.5 fl (80-100); Mean Platelet Volume 9.1 fl (7.4-10.4); Monocytes Absolute Auto 0.4 K/mm3 (0.1-0.6); Monocytes Percent Auto 4.6 % (2.6-8.5); Neutrophils Absolute Auto 5.7 K/mm3 (1.3-6.7); Neutrophils Percent Auto 75.6 % (45.5-73.1); Platelet Count Result 258 k/mm3 (150-375); Red Blood Count 3.63 M/mm3 (4.2-5.4); Red Cell Distribution Width 12.1 % (11.5-14.5); White Blood Count 7.5 K/mm3 (4.5-10.0)
[2024-02-12] VITALS (10 sets, daily range): BP systolic 116–123; BP diastolic 70–77; PULSE 64–107; RESP 16–18; TEMP 36.6–36.8; O2SAT 96–100
[2024-02-12 00:07] LABS: Partial Thromboplastin Time 49.7 Seconds (22.3-36.8); Prothrombin Time 13.8 Seconds (11.1-14.7)
--- NOTE | 2024-02-12 00:09 | PM.IMHP ---
H&P: HPI History of Present Illness Date/Time: 02/12/24 00:09 Chief Complaint: Chest tightness Narrative: 33-year-old female presents with chest tightness on the day of admission 02/11/2024. She is 4 days postop from bilateral breast augmentation and tension abdominoplasty and suction lipectomy with Dr. Lamb. The patient was a will cannot for sleep with chest pressure which was worse with deep breathing. She did not otherwise feel ill. This pain was not likely postop pain she had been managing since her surgery. She has been wearing her abdominal binder. She denied radiation of the pain. Denied nausea or other symptoms. Operative report does not indicate complications. She has not had bleeding from her surgical site. She has not had a bowel movement in 4 days but she has constipation on and off due to her Crohn's disease. She has not had blood per rectum. She has not had hemoptysis. [facility] ER evaluation demonstrated hemoglobin 8.9 and then on repeat 10.8. MRSA of the nares negative. His CTA chest abdomen pelvis demonstrating left lower lobe PE, edema of subcutaneous tissue of the chest and abdominal murray. No hematoma or abscess identified. Left lower lobe opacities. Review of Systems Review of Systems: All systems reviewed & are unremarkable except as noted in HPI and below (Subjective) [facility] Past Medical History Medical History Anxiety BMI 31.0-31.9,adult BMI 32.0-32.9,adult BMI 34.0-34.9,adult Chest discomfort Chest pain Crohn's disease Depression Eczema Elevated glucose Elevated LDL cholesterol level Fatigue Hernia History of blood transfusion Hypersomnia Increased frequency of urination Obesity TATO (obstructive sleep apnea) TATO on CPAP Screening for diabetes mellitus Shortness of Breath Snoring Stomach ulcer Surgical History Surgical History History of colon surgery Hx of appendectomy 2014 Family History Family History Father Hypertension Mother Hypertension COPD (chronic obstructive pulmonary disease) Heart disease Grandparent Cerebrovascular accident Social History Social History Smoking status: Former smoker Second hand tobacco smoke exposure: No Additional smoking assessment comments: VAPED X6 MONTH, QUIT 09/17/23 Alcohol intake: current Drinks per week: 1 Alcohol use details: RARELY Substance use: never Substance use type: does not use Other substance usage details: WEED PEN FOR APPROX ~3 YRS, QUIT ~04/18/23 Last use: 2021 Do You Feel Safe in your Home?: Yes Lack of Transportation: No Lack of Food: Never True Current Housing: I Have Housing Concerned About Future Housing: No Difficulty Paying Gas/Electric Bills: No Difficulty Paying for Meds: No Currently Unemployed: No Education: High School Diploma/GED Difficulty w/ Childcare or Family Care: No Living arrangements: with family Additional living arrangements comments: HUSB AND 3 CHILDREN Gender identity (if verbalized by the patient): Female Sexual Orientation (if Verbalized by the Patient): Straight or Heterosexual Spiritual care concerns: No Meds Home Medications and Allergies Home Medications Medication Instructions Recorded Confirmed Type cephalexin 500 mg capsule 500 mg PO Q8H 7 days #21 caps 02/05/24 02/12/24 Rx carisoprodol 350 mg tablet 350 mg PO Q8H PRN Muscle Spasm 02/11/24 02/12/24 History docusate sodium 100 mg capsule 100 mg PO BID 02/11/24 02/12/24 History enoxaparin 40 mg/0.4 mL 40 mg subcut DAILY 02/11/24 02/12/24 History subcutaneous syringe ondansetron HCl 4 mg tablet 4 mg PO PRN PRN Nausea 02/11/24 02/12/24 History oxycodone-acetaminophen 5 mg-325 1 tablet PO Q6H PRN Pain 02/11/24 02/12/24 History mg tablet Allergies Allergy/AdvReac Type Severity Reaction Status Date / Time methylprednisolone AdvReac Fainting Verified 02/07/24 07:21 Vital Signs Vital Signs - 24 hr 02/11/24 18:47 02/11/24 19:16 02/11/24 19:18 Temperature 98.9 F Pulse Rate 98 92 Respiratory Rate 17 Blood Pressure 154/91 H Pulse Oximetry 98 98 Oxygen Delivery Room Air Room Air 02/11/24 21:15 02/11/24 22:43 02/11/24 19:01 Temperature Pulse Rate 97 98 103 H Respiratory Rate 15 20 14 Blood Pressure 125/76 108/90 154/91 H Pulse Oximetry 99 100 99 Oxygen Delivery 02/11/24 19:02 02/11/24 19:15 02/11/24 19:16 Temperature Pulse Rate 97 90 92 Respiratory Rate 14 20 19 Blood Pressure 126/74 Pulse Oximetry 98 98 98 Oxygen Delivery 02/11/24 19:33 02/11/24 19:52 02/11/24 19:53 Temperature Pulse Rate 103 H 97 95 Respiratory Rate 23 H 15 15 Blood Pressure 140/76 Pulse Oximetry 100 100 Oxygen Delivery 02/11/24 20:00 02/11/24 20:01 02/11/24 20:17 Temperature Pulse Rate 90 94 93 Respiratory Rate 19 25 H 13 Blood Pressure 143/110 H Pulse Oximetry 100 100 Oxygen Delivery 02/11/24 20:54 02/11/24 21:00 02/11/24 21:05 Temperature Pulse Rate 106 H 101 H 97 Respiratory Rate 19 14 21 H Blood Pressure 125/76 Pulse Oximetry 100 100 99 Oxygen Delivery 02/11/24 21:15 02/11/24 21:30 02/11/24 21:31 Temperature Pulse Rate 93 104 H 98 Respiratory Rate 17 18 18 Blood Pressure 133/84 Pulse Oximetry 99 99 100 Oxygen Delivery 02/11/24 21:50 02/11/24 23:24 02/11/24 23:31 Temperature 98.2 F Pulse Rate 97 64 98 Respiratory Rate 15 18 20 Blood Pressure 113/88 Pulse Oximetry 99 98 100 Oxygen Delivery Room Air Exam Const: General: comfortable and no acute distress Other: A&O x3. Chaperoned by her Eyes: Pupils: Equal, round and reactive pupils present Neck: Neck: supple Chest: Other: Reproducible chest pain around her incision sites on the inferior borders of the breast Resp: Other: Cannot take deep breaths. No adventitious sounds identified. Cardio: Rate: regular rate Rhythm: regular rhythm GI: Other: Is appropriate tenderness at incision site. No masses identified. No active drainage. Extrem: General: no edema H&P: Results Labs Labs: Short CBC 02/11/24 02/11/24 02/11/24 Range/Units 19:23 23:49 23:49 WBC 7.5 7.5 (4.5-10.0) K/mm3 Hgb 8.9 L D 10.8 L 10.8 L (12.0-15.0) g/dL Hct 27.9 L 33.1 L (37.0-47.0) % Plt Count 270 (150-375) k/mm3 02/11/24 Range/Units 23:49 WBC (4.5-10.0) K/mm3 Hgb (12.0-15.0) g/dL Hct 32.5 L (37.0-47.0) % Plt Count 258 (150-375) k/mm3 BMP 02/11/24 19:23 Sodium 136 L Potassium 4.1 Chloride 102 Carbon Dioxide 30 BUN 16 Creatinine 0.70 Glucose 99 Calcium 8.7 Cardiac Enzymes 02/11/24 Range/Units 19:23 Troponin I < 0.012 (0.000-0.034) ng/mL Liver Function 02/11/24 Range/Units 19:23 Total Bilirubin 0.5 (0.2-1.3) mg/dL AST 34 (14-36) U/L ALT 27 (6-35) U/L Alkaline Phosphatase 61 (38-126) U/L Albumin 3.3 L (3.5-5.1) g/dL Assessment and Plan Assessment and plan (1) Pulmonary embolism: Code(s): I26.99 - Other pulmonary embolism without acute cor pulmonale Status: Acute (2) Pneumonia: Code(s): J18.9 - Pneumonia, unspecified organism Status: Acute Plan 33-year-old female presents with chest tightness on the day of admission 02/11/2024. She is 4 days postop from bilateral breast augmentation and tension abdominoplasty and suction lipectomy with Dr. Lamb. The patient was a will cannot for sleep with chest pressure which was worse with deep breathing. She did not otherwise feel ill. This pain was not likely postop pain she had been managing since her surgery. She has been wearing her abdominal binder. She denied radiation of the pain. Denied nausea or other symptoms. Operative report does not indicate complications. She has not had bleeding from her surgical site. She has not had a bowel movement in 4 days but she has constipation on and off due to her Crohn's disease. She has not had blood per rectum. She has not had hemoptysis. [facility] ER evaluation demonstrated hemoglobin 8.9 and then on repeat 10.8. MRSA of the nares negative. His CTA chest abdomen pelvis demonstrating left lower lobe PE, edema of subcutaneous tissue of the chest and abdominal murray. No hematoma or abscess identified. Left lower lobe opacities. ----- Presenting complaint of chest tightness likely due to PE and pneumonia in the left lower lobe. Incentive spirometer has been ordered considering the patient's recent surgery and pleuritic chest pain. After therapies administered in the ER she was asymptomatic. Initial hemoglobin this 8.9. Hemoglobin on 02/05/2024 2 days prior to Plastic surgery was 14.3. Do not believe this was accurate. Repeat hemoglobin is 10.8. This is more on par with postoperative anemia. She has no evidence of hematoma collection or exsanguination. Was given Lovenox the ER. Requested that heparin be started instead. If she continues to be stable overnight can set her up with a novel oral anticoagulant to be discharged on. Educated the patient's follow-up PCP within 3 months to determine if she can come off of this. It was provoked from surgery. The pneumonia at the left lower lobe is also likely related to the hospital/operation. Gail will cover that as well in case she has aspiration secondary to intubation. her plastic surgeon Dr. Montes was contacted from ER. No further recommendations at this time. ----- Regular diet. SCDs. Heparin GTT. Patient wishes to be full code. Plastic surgery consultation Hospitalist MIPS Advance Care Plan I have confirmed that the patient's Advanced Care Plan is present, code status is documented, or surrogate decision maker is listed in patient medical record.: Yes Medication Reconciliation I have utilized all available resources to obtain, update and review the patients current medications (includes all prescriptions, OTC, herbals, cannabis, and nutritional supplements).: Yes
[2024-02-12] MEDS: HYDROcodone/acetaminophen (*CRX) 5-325 MG TABLET 1 TAB PO ×3 (00:27→16:23)
[2024-02-12] MEDS: HYDROmorphone HCL INJ (*CRX) 1 MG/ML SYR 0.5 MG IV PUSH ×5 (01:21→21:17)
[2024-02-12] MEDS: PIPERACILLIN/TAZ 4.5G/NS 100ML 4.5 GM/100 ML BAG IVPB ×4 (04:05→21:21)
[2024-02-12 06:38] LABS: Hematocrit 31.5 % (37.0-47.0); Hemoglobin 10.3 g/dL (12.0-15.0); Mean Corpuscular HGB Conc 32.7 g/dl (32-36); Mean Corpuscular Hemoglobin 29.9 pg (26-34); Mean Corpuscular Volume 91.6 fl (80-100); Mean Platelet Volume 9.2 fl (7.4-10.4); Platelet Count Result 263 k/mm3 (150-375); Red Blood Count 3.44 M/mm3 (4.2-5.4); Red Cell Distribution Width 12.4 % (11.5-14.5); White Blood Count 6.5 K/mm3 (4.5-10.0)
[2024-02-12 06:51] LABS: Anion Gap 6 mmol/L (4-12); Blood Urea Nitrogen 16 mg/dL (7-17); Calcium 8.2 mg/dL (8.4-10.2); Carbon Dioxide 26 mmol/L (22-30); Chloride 104 mmol/L (98-107); Estimated CRCL calculation 102 ml/min; Estimated Glomerular Filt Rate > 60; Glucose 92 mg/dL (65-110); Magnesium 2.2 mg/dL (1.6-2.3); Potassium 4.1 mmol/L (3.4-5.0); Sodium 136 mmol/L (137-145)
[2024-02-12] MEDS: HEPARIN SOD/D5W 100 UNITS/ML 25,000 UNITS/250 ML BAG 13 UNITS IV CONT (10:12)
--- NOTE | 2024-02-12 10:16 | P.CONS_ITS ---
Assessment and Plan Assessment and plan (1) Pulmonary embolism: Code(s): I26.99 - Other pulmonary embolism without acute cor pulmonale Status: Acute Assessment and Plan: Per hospitalist. Appreciate their care! Preoperative Caprini 4. SCDs utilized. Patient had early ambulation. Was on Lovenox 40mg/ day perioperatively (missed most recent dose per patient) (2) Chest pain: Code(s): R07.9 - Chest pain, unspecified Status: Acute Assessment and Plan: Care per hospitalist. Some central lower chest tenderness is reproducible and may be related to suction lipectomy I completed in that area; however, agree with workup to r/o other etiologies. (3) History of cosmetic plastic surgery: Code(s): Z98.890 - Other specified postprocedural states Status: Acute Assessment and Plan: History bilateral augmentation mastopexy with Galaflex and Progressive tension abdominoplasty with suction lipectomy. Surgically doing well. Brijjit device (clear plastic dressings) in place and stay in place until they fall off. Ambulate regularly. Keep flexed only extending as patient tolerates. Abdominal binder to comfort. (4) Constipation: Code(s): K59.00 - Constipation, unspecified Status: Acute Assessment and Plan: Post op constipation. Will try MgCitrate (5) Crohn's disease: Qualifiers: Digestive disease complication type: without complication Gastrointe stinal tract location: small intestine Qualified Code(s): K50.00 - Crohn's disease of small intestine without complications Code(s): K50.90 - Crohn's disease, unspecified, without complications Status: Acute Assessment and Plan: Per hospitalist (6) Pneumonia: Code(s): J18.9 - Pneumonia, unspecified organism Status: Acute Assessment and Plan: Per hospitalist HPI Data of Consult Date/Time: 02/12/24 10:16 Requesting Physician: Gail Chiu MD Primary Care Provider: Helen Garber NP Consult Narrative Reason for consult: History augmentation mastopexy with progessive tension abdominoplasty Narrative: Agnieszka Sykes is a 33 year old female who last Tuesday underwent augmentation mastopexy with progressive tension abdominoplasty. She presented to the ER with chest pressure, worse with breathing and CXR shows Patchy bilateral mid and particularly lower lung infiltrate and/or atelectasis , CTA shows Limited left lower lobe pulmonary embolism Edema of subcutaneous emphysema of the chest and abdominal murray. She was admitted for management. Preoperatively Caprini was 4; however, we he had a lengthy discussion and she elected to proceed with 40mg/day Lovenox. She states she had a nurse friend inject; however, missed her most recent dosing. She had SCDs at the time of surgery, was discharged home post-operatively and has been ambulating regularly. Further H/H decreased in ER; however, now appears more anticipated post-op given dilutional effect / blood loss. Today she is doing well. Still some central chest discomfort. Left calf tenderness. No f/c. No n/v. She has not had a BM. Review of Systems Review of Systems: All systems reviewed & are unremarkable except as noted in HPI and below PMFSH Past Medical History Medical History Anxiety BMI 31.0-31.9,adult BMI 32.0-32.9,adult BMI 34.0-34.9,adult Chest discomfort Chest pain Crohn's disease Depression Eczema Elevated glucose Elevated LDL cholesterol level Fatigue Hernia History of blood transfusion Hypersomnia Increased frequency of urination Obesity TATO (obstructive sleep apnea) TATO on CPAP Screening for diabetes mellitus Shortness of Breath Snoring Stomach ulcer Surgical History Surgical History History of colon surgery Hx of appendectomy 2014 Family History Family History Father Hypertension Mother Hypertension COPD (chronic obstructive pulmonary disease) Heart disease Grandparent Cerebrovascular accident Social History Social History Smoking status: Former smoker Second hand tobacco smoke exposure: No Additional smoking assessment comments: VAPED X6 MONTH, QUIT 09/17/23 Alcohol intake: current Drinks per week: 1 Alcohol use details: RARELY Substance use: never Substance use type: does not use Other substance usage details: WEED PEN FOR APPROX ~3 YRS, QUIT ~04/18/23 Last use: 2021 Do You Feel Safe in your Home?: Yes Lack of Transportation: No Lack of Food: Never True Current Housing: I Have Housing Concerned About Future Housing: No Difficulty Paying Gas/Electric Bills: No Difficulty Paying for Meds: No Currently Unemployed: No Education: High School Diploma/GED Difficulty w/ Childcare or Family Care: No Living arrangements: with family Additional living arrangements comments: HUSB AND 3 CHILDREN Gender identity (if verbalized by the patient): Female Sexual Orientation (if Verbalized by the Patient): Straight or Heterosexual Spiritual care concerns: No Meds Home Medications and Allergies Home Medications Medication Instructions Recorded Confirmed Type cephalexin 500 mg capsule 500 mg PO Q8H 7 days #21 caps 02/05/24 02/12/24 Rx carisoprodol 350 mg tablet 350 mg PO Q8H PRN Muscle Spasm 02/11/24 02/12/24 History docusate sodium 100 mg capsule 100 mg PO BID 02/11/24 02/12/24 History enoxaparin 40 mg/0.4 mL 40 mg subcut DAILY 02/11/24 02/12/24 History subcutaneous syringe ondansetron HCl 4 mg tablet 4 mg PO PRN PRN Nausea 02/11/24 02/12/24 History oxycodone-acetaminophen 5 mg-325 1 tablet PO Q6H PRN Pain 02/11/24 02/12/24 History mg tablet Allergies Allergy/AdvReac Type Severity Reaction Status Date / Time methylprednisolone AdvReac Fainting Verified 02/07/24 07:21 Vital Signs Vital Signs - 24 hr 02/11/24 18:47 02/11/24 19:16 02/11/24 19:18 Temperature 37.2 C Pulse Rate 98 92 Respiratory Rate 17 Blood Pressure 154/91 H Pulse Oximetry 98 98 Oxygen Delivery Room Air Room Air Fraction of Inspired Oxygen 02/11/24 21:15 02/11/24 22:43 02/11/24 19:01 Temperature Pulse Rate 97 98 103 H Respiratory Rate 15 20 14 Blood Pressure 125/76 108/90 154/91 H Pulse Oximetry 99 100 99 Oxygen Delivery Fraction of Inspired Oxygen 02/11/24 19:02 02/11/24 19:15 02/11/24 19:16 Temperature Pulse Rate 97 90 92 Respiratory Rate 14 20 19 Blood Pressure 126/74 Pulse Oximetry 98 98 98 Oxygen Delivery Fraction of Inspired Oxygen 02/11/24 19:33 02/11/24 19:52 02/11/24 19:53 Temperature Pulse Rate 103 H 97 95 Respiratory Rate 23 H 15 15 Blood Pressure 140/76 Pulse Oximetry 100 100 Oxygen Delivery Fraction of Inspired Oxygen 02/11/24 20:00 02/11/24 20:01 02/11/24 20:17 Temperature Pulse Rate 90 94 93 Respiratory Rate 19 25 H 13 Blood Pressure 143/110 H Pulse Oximetry 100 100 Oxygen Delivery Fraction of Inspired Oxygen 02/11/24 20:54 02/11/24 21:00 02/11/24 21:05 Temperature Pulse Rate 106 H 101 H 97 Respiratory Rate 19 14 21 H Blood Pressure 125/76 Pulse Oximetry 100 100 99 Oxygen Delivery Fraction of Inspired Oxygen 02/11/24 21:15 02/11/24 21:30 02/11/24 21:31 Temperature Pulse Rate 93 104 H 98 Respiratory Rate 17 18 18 Blood Pressure 133/84 Pulse Oximetry 99 99 100 Oxygen Delivery Fraction of Inspired Oxygen 02/11/24 21:50 02/11/24 23:24 02/11/24 23:31 Temperature 36.8 C Pulse Rate 97 64 98 Respiratory Rate 15 18 20 Blood Pressure 113/88 Pulse Oximetry 99 98 100 Oxygen Delivery Room Air Fraction of Inspired Oxygen 02/12/24 00:00 02/12/24 04:00 02/12/24 06:00 Temperature 36.8 C Pulse Rate 103 H 96 64 Respiratory Rate 18 Blood Pressure 123/71 Pulse Oximetry 98 Oxygen Delivery Fraction of Inspired Oxygen 02/12/24 08:36 Temperature Pulse Rate Respiratory Rate Blood Pressure Pulse Oximetry 96 Oxygen Delivery Room Air Fraction of Inspired Oxygen 21 Exam Narrative: Alert & Oriented NOD Respiratory unlabored Bilateral breasts are healing well. Brijjit in place No signs of infection. No hematoma. No seroma. Good color and capillary refill. She does have some lower central chest tenderness (in area that was treated with suction lipectomy) Abdomen healing well. Brijjit in place No signs of infection. No hematoma. No seroma. Good color and capillary refill. Left calf tenderness. Results Labs 02/12/24 06:20 02/12/24 06:20 Labs: Short CBC 02/11/24 02/11/24 02/11/24 Range/Units 19:23 23:49 23:49 WBC 7.5 7.5 (4.5-10.0) K/mm3 Hgb 8.9 L D 10.8 L 10.8 L (12.0-15.0) g/dL Hct 27.9 L 33.1 L (37.0-47.0) % Plt Count 270 (150-375) k/mm3 02/11/24 02/12/24 Range/Units 23:49 06:20 WBC 6.5 (4.5-10.0) K/mm3 Hgb 10.3 L (12.0-15.0) g/dL Hct 32.5 L 31.5 L (37.0-47.0) % Plt Count 258 263 (150-375) k/mm3 BMP 02/11/24 02/12/24 19:23 06:20 Sodium 136 L 136 L Potassium 4.1 4.1 Chloride 102 104 Carbon Dioxide 30 26 BUN 16 16 Creatinine 0.70 0.80 Glucose 99 92 Calcium 8.7 8.2 L Cardiac Enzymes 02/11/24 Range/Units 19:23 Troponin I < 0.012 (0.000-0.034) ng/mL Liver Function 02/11/24 Range/Units 19:23 Total Bilirubin 0.5 (0.2-1.3) mg/dL AST 34 (14-36) U/L ALT 27 (6-35) U/L Alkaline Phosphatase 61 (38-126) U/L Albumin 3.3 L (3.5-5.1) g/dL
--- NOTE | 2024-02-12 11:29 | P.PNIM_ITS ---
Progress Note: A&P Assessment and Plan (1) Pulmonary embolism: Code(s): I26.99 - Other pulmonary embolism without acute cor pulmonale Status: Acute Assessment and Plan: - Patient was on Heparin drip. - Heparin discontinued and pt started on Eliquis. - TT ECHO ordered. - No cardiopulmonary symptoms noted and good O2 sats > 90 % on RA. (2) Pneumonia: Code(s): J18.9 - Pneumonia, unspecified organism Status: Acute Assessment and Plan: - Blood-cultures not obtained in the ER and ordered now. - Continue Zosyn. - Follow cultures. (3) Constipation: Code(s): K59.00 - Constipation, unspecified Status: Acute Assessment and Plan: - Started on stool softener and laxative PRN. - Monitor for results. (4) History of cosmetic plastic surgery: Code(s): Z98.890 - Other specified postprocedural states Status: Acute Assessment and Plan: - s/p Bilateral breast augmentation and tension abdominoplasty. - Seen by plastic surgeon. - Mgt per plastic surgeon. - Pain meds PRN. - Continue abdominal binder. (5) H/O abdominal surgery: Code(s): Z98.890 - Other specified postprocedural states Status: Acute Assessment and Plan: - Seen by plastic surgeon. - Mgt per plastic surgeon. - Pain meds PRN. Time Spent With Patient Time with patient: 15 - 25 minutes Subjective Date/time seen: 02/12/24 11:29: Patient calm on bedrest and denies any acute symptoms currently. Interval history: 33-year-old female presents with chest tightness on the day of admission 02/11/2024. She is 4 days postop from bilateral breast augmentation and tension abdominoplasty and suction lipectomy with Dr. Lamb. This pain was not likely postop pain she had been managing since her surgery. Operative report does not indicate complications. She has not had hemoptysis. Her CTA chest abdomen pelvis demonstrated left lower lobe PE, edema of subcutaneous tissue of the chest and abdominal murray. No hematoma or abscess identified. Left lower lobe opacities. She was started on anticoagulation for PE and abx for PNA. Review of Systems Review of Systems: All systems reviewed & are unremarkable except as noted in HPI and below (Subjective) Exam Narrative: HEENT: Atraumatic, DORIAN, EOM, non-icteric, moist mucus membranes. NECK: Supple. Lungs: Clear bilaterally. HEART: RRR, no murmurs. ABDOMEN: Slightly tender to palpation post surgery, abdominal binder intact. EXTREMETIES: No edema, good pedal pulses. NEURO: CN II-XII grossly intact, no neuro deficits noted. PSYCH: Pleasant and co-operative. Const: General: comfortable and no acute distress Other: A&O x3. Chaperoned by her Eyes: Pupils: Equal, round and reactive pupils present Neck: Neck: supple Chest: Other: Reproducible chest pain around her incision sites on the inferior borders of the breast Resp: Other: Cannot take deep breaths. No adventitious sounds identified. Cardio: Rate: regular rate Rhythm: regular rhythm GI: Other: Is appropriate tenderness at incision site. No masses identified. No active drainage noted. Neuro: Cranial nerves: Yes Equal, round and reactive pupils present Speech: normal speech Motor exam (neuro): 5/5 motor strength present throughout Sensory Exam: normal sensation Extrem: General: no edema Psych: Mental Status: mental status grossly normal Affect: normal affect Other: Calm and co-operative Objective Data Vital Signs Vital Signs: Vital Signs - 24 hr 02/11/24 18:47 02/11/24 19:16 02/11/24 19:18 Temperature 98.9 F Pulse Rate 98 92 Respiratory Rate 17 Blood Pressure 154/91 H Pulse Oximetry 98 98 Oxygen Delivery Room Air Room Air Fraction of Inspired Oxygen 02/11/24 21:15 02/11/24 22:43 02/11/24 19:01 Temperature Pulse Rate 97 98 103 H Respiratory Rate 15 20 14 Blood Pressure 125/76 108/90 154/91 H Pulse Oximetry 99 100 99 Oxygen Delivery Fraction of Inspired Oxygen 02/11/24 19:02 02/11/24 19:15 02/11/24 19:16 Temperature Pulse Rate 97 90 92 Respiratory Rate 14 20 19 Blood Pressure 126/74 Pulse Oximetry 98 98 98 Oxygen Delivery Fraction of Inspired Oxygen 02/11/24 19:33 02/11/24 19:52 02/11/24 19:53 Temperature Pulse Rate 103 H 97 95 Respiratory Rate 23 H 15 15 Blood Pressure 140/76 Pulse Oximetry 100 100 Oxygen Delivery Fraction of Inspired Oxygen 02/11/24 20:00 02/11/24 20:01 02/11/24 20:17 Temperature Pulse Rate 90 94 93 Respiratory Rate 19 25 H 13 Blood Pressure 143/110 H Pulse Oximetry 100 100 Oxygen Delivery Fraction of Inspired Oxygen 02/11/24 20:54 02/11/24 21:00 02/11/24 21:05 Temperature Pulse Rate 106 H 101 H 97 Respiratory Rate 19 14 21 H Blood Pressure 125/76 Pulse Oximetry 100 100 99 Oxygen Delivery Fraction of Inspired Oxygen 02/11/24 21:15 02/11/24 21:30 02/11/24 21:31 Temperature Pulse Rate 93 104 H 98 Respiratory Rate 17 18 18 Blood Pressure 133/84 Pulse Oximetry 99 99 100 Oxygen Delivery Fraction of Inspired Oxygen 02/11/24 21:50 02/11/24 23:24 02/11/24 23:31 Temperature 98.2 F Pulse Rate 97 64 98 Respiratory Rate 15 18 20 Blood Pressure 113/88 Pulse Oximetry 99 98 100 Oxygen Delivery Room Air Fraction of Inspired Oxygen 02/12/24 00:00 02/12/24 04:00 02/12/24 06:00 Temperature 98.2 F Pulse Rate 103 H 96 64 Respiratory Rate 18 Blood Pressure 123/71 Pulse Oximetry 98 Oxygen Delivery Fraction of Inspired Oxygen 02/12/24 08:36 Temperature Pulse Rate Respiratory Rate Blood Pressure Pulse Oximetry 96 Oxygen Delivery Room Air Fraction of Inspired Oxygen 21 Intake/Output Intake/Output: Intake & Output 02/09/24 02/10/24 02/11/24 02/12/24 23:59 23:59 23:59 23:59 Intake Total 220 Output Total 0 Balance 220 Meds/Results Medications: Active Medications Generic Name Dose Route Start Last Admin Trade Name Freq PRN Reason Stop Dose Admin Acetaminophen 650 mg 02/11/24 22:03 Acetaminophen 325 Mg Tablet PO Q4H PRN Mild Pain (1-3) or Fever Hydrocodone Bitart/Acetaminophen 1 tab 02/11/24 22:03 02/12/24 06:24 Hydrocodone/Acetaminophen (*Crx) 5-325 Mg Tablet PO 1 tab Q4H PRN Administration Pain Rated 4-6 Heparin Sodium (Porcine) 3,000 units 02/12/24 10:00 Heparin Sodium 5,000 Units/Ml Vial IV PUSH PRN PRN aPTT 55 - 70 seconds Heparin Sodium (Porcine) 5,500 units 02/12/24 10:00 Heparin Sodium 5,000 Units/Ml Vial IV PUSH PRN PRN aPTT less than 55 seconds Hydromorphone HCl 0.5 mg 02/11/24 22:03 02/12/24 09:22 Hydromorphone Hcl Inj (*Crx) 1 Mg/Ml Syr IV PUSH 0.5 mg Q4H PRN Administration Pain Rated 7-10 Heparin Sodium/Dextrose 25,000 units in 250 mls @ 13 mls/hr 02/12/24 10:00 02/12/24 10:12 Heparin Sodium/D5w 100 Units/Ml IV CONT 1,300 units/hr .[id number] SHANNON 13 mls/hr Administration Protocol 1,300 UNITS/HR Piperacillin Sod/Tazobactam Sod 4.5 gm in 100 mls @ 200 mls/hr 02/12/24 04:00 02/12/24 11:13 Zosyn 4.5 Gm/Ns 100 Ml IVPB 200 mls/hr Q6H SHANNON Administration Ondansetron HCl 4 mg 02/11/24 22:03 Ondansetron Inj 4 Mg/2 Ml Vial IV PUSH Q4H PRN Nausea Perflutren Lipid Microsphere 0 ml 02/12/24 08:01 Perflutren Lipid Microspheres 1.5 Ml Vial Diluted To 10 Ml Total Volume IV PUSH 02/15/24 08:02 ONCE PRN adequate visualization Protocol Radiology Results: ITS Impressions Chest X-Ray 02/11/24 19:45 IMPRESSION: Patchy bilateral mid and particularly lower lung infiltrate and/or atelectasis Chest/Abdomen/Pelvis CTA 02/11/24 21:07 IMPRESSION: Limited left lower lobe pulmonary embolism Edema of subcutaneous emphysema of the chest and abdominal murray Labs Labs: Laboratory Results - last 24 hr 02/11/24 02/11/24 02/11/24 19:23 19:56 22:32 WBC 7.5 RBC 3.08 L Hgb 8.9 L D Hct 27.9 L MCV 90.6 MCH 28.9 MCHC 31.9 L RDW 12.3 Plt Count 270 MPV 9.1 Immature Gran % (Auto) 0.3 Neut % (Auto) 74.9 H Lymph % (Auto) 16.0 L [place] % (Auto) 6.1 Eos % (Auto) 2.4 Baso % (Auto) 0.3 Lymph # (Auto) 1.21 [place] # (Auto) 0.5 Eos # (Auto) 0.2 Baso # (Auto) 0.0 Abs Immat Gran (auto) 0.02 Absolute Neuts (auto) 5.7 Absolute Nucleated RBC 0.000 Nucleated RBC % 0.0 PT 13.6 INR 1.0 APTT 36.0 D-Dimer 1.04 H Sodium 136 L Potassium 4.1 Chloride 102 Carbon Dioxide 30 Anion Gap 4 BUN 16 Creatinine 0.70 Estim Creat Clear Calc 111 Estimated GFR > 60 Glucose 99 Calcium 8.7 Magnesium Total Bilirubin 0.5 AST 34 ALT 27 Alkaline Phosphatase 61 Troponin I < 0.012 Total Protein 7.0 Albumin 3.3 L Lipase 70 POC Urine HCG, Qual Negative Nasal MRSA (PCR) Not detected 02/11/24 02/11/24 02/11/24 23:49 23:49 23:49 WBC 7.5 RBC 3.63 L Hgb 10.8 L 10.8 L Hct 33.1 L 32.5 L MCV 89.5 MCH 29.8 MCHC 33.2 RDW 12.1 Plt Count 258 MPV 9.1 Immature Gran % (Auto) 0.5 Neut % (Auto) 75.6 H Lymph % (Auto) 16.9 L [place] % (Auto) 4.6 Eos % (Auto) 2.3 Baso % (Auto) 0.1 L Lymph # (Auto) 1.27 [place] # (Auto) 0.4 Eos # (Auto) 0.2 Baso # (Auto) 0.0 Abs Immat Gran (auto) 0.04 H Absolute Neuts (auto) 5.7 Absolute Nucleated RBC 0.000 Nucleated RBC % 0.0 PT 13.8 INR 1.0 APTT 49.7 H D-Dimer Sodium Potassium Chloride Carbon Dioxide Anion Gap BUN Creatinine Estim Creat Clear Calc Estimated GFR Glucose Calcium Magnesium Total Bilirubin AST ALT Alkaline Phosphatase Troponin I Total Protein Albumin Lipase POC Urine HCG, Qual Nasal MRSA (PCR) 02/12/24 06:20 WBC 6.5 RBC 3.44 L Hgb 10.3 L Hct 31.5 L MCV 91.6 MCH 29.9 MCHC 32.7 RDW 12.4 Plt Count 263 MPV 9.2 Immature Gran % (Auto) Neut % (Auto) Lymph % (Auto) [place] % (Auto) Eos % (Auto) Baso % (Auto) Lymph # (Auto) [place] # (Auto) Eos # (Auto) Baso # (Auto) Abs Immat Gran (auto) Absolute Neuts (auto) Absolute Nucleated RBC Nucleated RBC % PT INR APTT D-Dimer Sodium 136 L Potassium 4.1 Chloride 104 Carbon Dioxide 26 Anion Gap 6 BUN 16 Creatinine 0.80 Estim Creat Clear Calc 102 Estimated GFR > 60 Glucose 92 Calcium 8.2 L Magnesium 2.2 Total Bilirubin AST ALT Alkaline Phosphatase Troponin I Total Protein Albumin Lipase POC Urine HCG, Qual Nasal MRSA (PCR) Quality VTE Prophylaxis VTE prophylaxis: pharmacologic ordered Hospitalist MIPS Advance Care Plan I have confirmed that the patient's Advanced Care Plan is present, code status is documented, or surrogate decision maker is listed in patient medical record.: Yes Medication Reconciliation I have utilized all available resources to obtain, update and review the patients current medications (includes all prescriptions, OTC, herbals, cannabis, and nutritional supplements).: Yes
[2024-02-12] MEDS: APIXABAN 5 MG TABLET 10 MG PO ×2 (12:13→21:21)
[2024-02-12] MEDS: ACETAMINOPHEN 325 MG TABLET 650 MG PO (12:23)
[2024-02-12] MEDS: DOCUSATE SODIUM 100 MG CAPSULE PO (17:07)
[2024-02-13] VITALS (8 sets, daily range): BP systolic 107–125; BP diastolic 65–67; PULSE 75–117; RESP 12–20; TEMP 36.9–37.6; O2SAT 97–98
--- NOTE | 2024-02-13 | ECHO_ITS ---
Patient Info Name: Agnieszka Sykes Age: 33 years : 1990 Gender: Female Ht: 65 in Wt: 160 lbs BSA: 1.84 m2 HR: 75 bpm BP: 116 / 70 mmHg Heart Rhythm: Sinus Rhythm Technical Quality: Poor Exam Date: 02/13/2024 10:32 AM Exam Location: Echo Lab Patient Status: Inpatient Admit Date: 02/12/2024 Staff Ordering Physician: Obie Noe NP Information Assurance Officer: Miranda Khan RDCS Attending Provider: Keyanna Gatn Referring Physician: Kusum BIGGS; Exam Type: CA echo limited Study Info Indications - pul embolism Complete two-dimensional, color flow and Doppler transthoracic echocardiogram is performed. Reason for Poor Study: poor patient cooperation Summary 1. Complete two-dimensional, color flow and Doppler transthoracic echocardiogram is performed. 2. Limited echocardiogram. No apical images or subcostal images acquired. 3. Left ventricular chamber dimension is normal. 4. Left ventricular systolic function is normal, estimated at 60-65%. 5. The left ventricular diastolic function is indeterminate. Left Ventricle Limited echocardiogram. No apical images or subcostal images acquired. Left ventricular chamber dimension is normal. Left ventricular systolic function is normal, estimated at 60-65%. The left ventricular diastolic function is indeterminate. Right Ventricle Right ventricular chamber dimension is not well visualized. Left Atria Left atrial chamber dimension is normal. Right Atria Right atrial chamber dimension is not well visualized. Aortic Valve The aortic valve is trileaflet. There is no aortic valve stenosis. There is no aortic valve regurgitation. Pulmonic Valve The pulmonic valve is not well visualized. Mitral Valve There is no mitral valve stenosis. There is no mitral valve regurgitation. Tricuspid Valve The tricuspid valve leaflets are not well visualized. Pericardium/Pleural There is no pericardial effusion. Inferior Vena Cava Inferior vena cava is not well visualized. Aorta The aortic root size at the sinus of Valsalva is normal. Left Ventricular Outflow Tract Name Value Normal LVOT 2D LVOT Diameter 2.0 cm Pulmonic Valve Name Value Normal PV Doppler PV Peak Gradient 4 mmHg Tricuspid Valve Name Value Normal TV Regurgitation Doppler TR Peak Velocity 156 cm/s TR Peak Gradient 10 mmHg Estimated PAP/RSVP RA Pressure 10 mmHg <=5 PA Systolic Pressure 20 mmHg <36 RV Systolic Pressure 20 mmHg <36 Aortic Valve Name Value Normal AV Regurgitation 2D LVOT Area 3.0 cm2 Ventricles Name Value Normal LV Dimensions 2D/MM IVS Diastolic Thickness (2D) 0.9 cm 0.6-1.0 LVID Diastole (2D) 3.6 cm 3.8-5.2 LVIW Diastolic Thickness (2D) 0.9 cm 0.6-0.9 LVID Systole (2D) 2.4 cm 2.2-3.5 LVOT Diameter 2.0 cm LV Mass (2D Cubed) 89.63 g 67.00-162.00 LV Mass Index (2D Cubed) 49 g/m2 43-95 Relative Wall Thickness (2D) 0.52 LV Fractional Shortening/Ejection Fraction 2D/MM LV Fractional Shortening (2D) 34 % 27-45 LV EF (2D Teicholz) 64 % 54-74 Report Signatures
[2024-02-13] MEDS: HYDROcodone/acetaminophen (*CRX) 5-325 MG TABLET 1 TAB PO ×3 (00:35→17:36)
[2024-02-13] MEDS: HYDROmorphone HCL INJ (*CRX) 1 MG/ML SYR 0.5 MG IV PUSH ×3 (00:54→10:43)
[2024-02-13] MEDS: PIPERACILLIN/TAZ 4.5G/NS 100ML 4.5 GM/100 ML BAG IVPB ×4 (04:34→21:46)
[2024-02-13 07:19] LABS: Basophils Percent Auto 0.2 % (0.2-1.2); Eosinophils Absolute Auto 0.2 K/mm3 (0-0.3); Eosinophils Percent Auto 2.5 % (0-4.4); Hematocrit 31.6 % (37.0-47.0); Hemoglobin 10.5 g/dL (12.0-15.0); Immature Granulocyte Absolute 0.03 K/mm3 (0.00-0.031); Immature Granulocyte Percent A 0.4 % (0-0.5); Lymphocytes Percent Auto 19.4 % (18.3-44.2); Mean Corpuscular HGB Conc 33.2 g/dl (32-36); Mean Corpuscular Hemoglobin 29.8 pg (26-34); Mean Corpuscular Volume 89.8 fl (80-100); Monocytes Absolute Auto 0.6 K/mm3 (0.1-0.6); Monocytes Percent Auto 7.8 % (2.6-8.5); Neutrophils Absolute Auto 5.7 K/mm3 (1.3-6.7); Neutrophils Percent Auto 69.7 % (45.5-73.1); Platelet Count Result 267 k/mm3 (150-375); Red Blood Count 3.52 M/mm3 (4.2-5.4); Red Cell Distribution Width 12.3 % (11.5-14.5); White Blood Count 8.2 K/mm3 (4.5-10.0)
[2024-02-13 07:32] LABS: Alanine Aminotransferase 38 U/L (6-35); Albumin Level 3.4 g/dL (3.5-5.1); Alkaline Phosphatase 61 U/L (38-126); Anion Gap 7 mmol/L (4-12); Aspartate Amino Transferase 43 U/L (14-36); Bilirubin,Total 0.5 mg/dL (0.2-1.3); Blood Urea Nitrogen 12 mg/dL (7-17); Calcium 8.9 mg/dL (8.4-10.2); Carbon Dioxide 28 mmol/L (22-30); Chloride 103 mmol/L (98-107); Estimated CRCL calculation 91 ml/min; Estimated Glomerular Filt Rate > 60; Glucose 97 mg/dL (65-110); Magnesium 2.1 mg/dL (1.6-2.3); Potassium 4.4 mmol/L (3.4-5.0); Sodium 138 mmol/L (137-145)
[2024-02-13] MEDS: APIXABAN 5 MG TABLET 10 MG PO ×2 (09:12→21:45)
[2024-02-13] MEDS: ACETAMINOPHEN 325 MG TABLET 650 MG PO ×2 (09:17→14:45)
[2024-02-13] MEDS: DOCUSATE SODIUM 100 MG CAPSULE PO (09:18)
[2024-02-13] MEDS: polyethylene glycoL 3350 17 GM POWD.PACK PO (09:18)
[2024-02-13 09:35] LABS: Add Urine Microscopic? NO; Appearance Urine Clear (Clear); Bilirubin Urine Negative (Negative); Blood Urine Negative (Negative); Color Urine Yellow (Yellow); Glucose Urine UA Negative (Negative); Ketones Urine Negative (Negative); Leukocyte Esterase Ur Negative LEU/UL (Negative); Nitrate Urine Negative (Negative); Protein Urine Negative (Negative); Specific Grav Ur 1.013 (1.001-1.035); pH Urine 7.5 (5.0-9.0)
--- NOTE | 2024-02-13 12:29 | P.PNIM_ITS ---
Progress Note: A&P Assessment and Plan (1) Pulmonary embolism: Code(s): I26.99 - Other pulmonary embolism without acute cor pulmonale Status: Acute Assessment and Plan: - Patient was on Heparin drip. - Heparin discontinued and pt started on Eliquis. - TT ECHO ordered. - No cardiopulmonary symptoms noted and good O2 sats > 90 % on RA. 02/13/24: * Continue Eliquis. * Pt should be stable for discharge tomorrow with continued prescription for Eliquis. (2) Pneumonia: Code(s): J18.9 - Pneumonia, unspecified organism Status: Acute Assessment and Plan: - Blood-cultures not obtained in the ER and ordered now. - Continue Zosyn. - Follow cultures. 02/13/24: * Preliminary BC negative to date. * Continue abx for now. Consider switching to po at discharge. (3) Constipation: Code(s): K59.00 - Constipation, unspecified Status: Acute Assessment and Plan: - Started on stool softener and laxative PRN. - Monitor for results. (4) History of cosmetic plastic surgery: Code(s): Z98.890 - Other specified postprocedural states Status: Acute Assessment and Plan: - s/p Bilateral breast augmentation and tension abdominoplasty. - Seen by plastic surgeon. - Mgt per plastic surgeon. - Pain meds PRN. - Continue abdominal binder. (5) H/O abdominal surgery: Code(s): Z98.890 - Other specified postprocedural states Status: Acute Assessment and Plan: - Seen by plastic surgeon. - Mgt per plastic surgeon. - Pain meds PRN. (6) Abnormal urinalysis: Code(s): R82.90 - Unspecified abnormal findings in urine Status: Resolved Assessment and Plan: 02/13/24: * Pt with recent UTI of Proteus. * Recheck of urine today proves resolution. Time Spent With Patient Time with patient: 15 - 25 minutes Subjective Date/time seen: 02/13/24 0900 Interval history: This very pleasant pt was examined at the [facility] today in interval assessment. She continues to have a good amount of pain that is surgical but is also secondary to painful inspiration caused by the PE's. She has been started on Eliquis. She remains on Zosyn for her dx of likely PNA as noted per CXR. She had a UTI prior to her surgery that demonstrated a UTI with Proteus. She did not complete all of her abx, but has been on abx here. A repeat UA is ordered at this time. I discussed with pt my desire to keep her another night as she was h aving a lot of discomfort to ensure she has no more complications and she is agreeable to this plan. Review of Systems Review of Systems: All systems reviewed & are unremarkable except as noted in HPI and below Exam Narrative: HEENT: Atraumatic, non-icteric, moist mucus membranes. Appears to be in pain distress. NECK: Supple. Lungs: Clear bilaterally but diminished HEART: RRR, no murmurs. ABDOMEN: Abdominal binder in place. EXTREMETIES: No edema, good pedal pulses. NEURO: no neuro deficits noted. PSYCH: Pleasant and co-operative. Objective Data Vital Signs Vital Signs: Vital Signs - 24 hr 02/12/24 14:00 02/12/24 16:00 02/12/24 20:38 Temperature 98.0 F 97.9 F Pulse Rate 88 98 99 Respiratory Rate 16 18 Blood Pressure 121/70 122/77 Pulse Oximetry 97 100 Oxygen Delivery 02/12/24 22:43 02/12/24 20:00 02/13/24 00:00 Temperature 98.3 F Pulse Rate 93 77 Respiratory Rate 18 Blood Pressure 116/70 Pulse Oximetry 99 Oxygen Delivery Room Air 02/13/24 04:00 02/13/24 09:12 02/13/24 09:12 Temperature Pulse Rate 75 85 Respiratory Rate Blood Pressure Pulse Oximetry Oxygen Delivery Room Air 02/13/24 12:00 Temperature Pulse Rate 106 H Respiratory Rate Blood Pressure Pulse Oximetry Oxygen Delivery Intake/Output Intake/Output: Intake & Output 02/10/24 02/11/24 02/12/24 02/13/24 23:59 23:59 23:59 23:59 Intake Total 1013 740 Output Total 0 Balance 1013 740 Meds/Results Medications: Active Medications Generic Name Dose Route Start Last Admin Trade Name Freq PRN Reason Stop Dose Admin Acetaminophen 650 mg 02/11/24 22:03 02/13/24 09:17 Acetaminophen 325 Mg Tablet PO 650 mg Q4H PRN Administration Mild Pain (1-3) or Fever Hydrocodone Bitart/Acetaminophen 1 tab 02/11/24 22:03 02/13/24 04:35 Hydrocodone/Acetaminophen (*Crx) 5-325 Mg Tablet PO 1 tab Q4H PRN Administration Pain Rated 4-6 Apixaban 10 mg 02/12/24 11:40 02/13/24 09:12 Apixaban 5 Mg Tablet PO 02/18/24 21:01 10 mg Q12HR SHANNON Administration Apixaban 5 mg 02/19/24 09:00 Apixaban 5 Mg Tablet PO Q12HR [facility] Docusate Sodium 100 mg 02/12/24 11:30 02/13/24 09:18 Docusate Sodium 100 Mg Capsule PO 100 mg Q12H PRN Administration Constipation Hydromorphone HCl 0.5 mg 02/11/24 22:03 02/13/24 10:43 Hydromorphone Hcl Inj (*Crx) 1 Mg/Ml Syr IV PUSH 0.5 mg Q4H PRN Administration Pain Rated 7-10 Piperacillin Sod/Tazobactam Sod 4.5 gm in 100 mls @ 200 mls/hr 02/12/24 04:00 02/13/24 09:17 Zosyn 4.5 Gm/Ns 100 Ml IVPB 100 mls/hr Q6H SHANNON Administration Ondansetron HCl 4 mg 02/11/24 22:03 Ondansetron Inj 4 Mg/2 Ml Vial IV PUSH Q4H PRN Nausea Perflutren Lipid Microsphere 0 ml 02/12/24 08:01 Perflutren Lipid Microspheres 1.5 Ml Vial Diluted To 10 Ml Total Volume IV PUSH 02/15/24 08:02 ONCE PRN adequate visualization Protocol Polyethylene Glycol 17 gm 02/12/24 11:30 02/13/24 09:18 Polyethylene Glycol 3350 17 Gm Powd.Pack PO 17 gm QAM PRN Administration Constipation Zolpidem Tartrate 5 mg 02/13/24 21:00 Zolpidem Tartrate (*Crx) 5 Mg Tablet PO [facility] Radiology Results: ITS Impressions Chest X-Ray 02/11/24 19:45 IMPRESSION: Patchy bilateral mid and particularly lower lung infiltrate and/or atelectasis Chest/Abdomen/Pelvis CTA 02/11/24 21:07 IMPRESSION: Limited left lower lobe pulmonary embolism Edema of subcutaneous emphysema of the chest and abdominal murray Labs Labs: Laboratory Results - last 24 hr 1002/13/24 02/13/24 07:10 07:13 09:07 WBC 8.2 RBC 3.52 L Hgb 10.5 L Hct 31.6 L MCV 89.8 MCH 29.8 MCHC 33.2 RDW 12.3 Plt Count 267 MPV 9.0 Immature Gran % (Auto) 0.4 Neut % (Auto) 69.7 Lymph % (Auto) 19.4 [place] % (Auto) 7.8 Eos % (Auto) 2.5 Baso % (Auto) 0.2 Lymph # (Auto) 1.60 [place] # (Auto) 0.6 Eos # (Auto) 0.2 Baso # (Auto) 0.0 Abs Immat Gran (auto) 0.03 Absolute Neuts (auto) 5.7 Absolute Nucleated RBC 0.000 Nucleated RBC % 0.0 Sodium 138 Potassium 4.4 Chloride 103 Carbon Dioxide 28 Anion Gap 7 BUN 12 Creatinine 0.90 Estim Creat Clear Calc 91 Estimated GFR > 60 Glucose 97 Calcium 8.9 Magnesium 2.1 Total Bilirubin 0.5 AST 43 H ALT 38 H Alkaline Phosphatase 61 Total Protein 7.0 Albumin 3.4 L Urine Color Yellow Urine Appearance Clear Urine pH 7.5 Ur Specific [place] 1.013 Urine Protein Negative Urine Glucose (UA) Negative Urine Ketones Negative Ur Blood (Man) Negative Urine Nitrate Negative Urine Bilirubin Negative Urine Urobilinogen 1.0 Leukocyte Esterase Rfl Negative Quality VTE Prophylaxis VTE prophylaxis: mechanical ordered
[2024-02-13] MEDS: oxyCODONE/ACETAMINOPHEN (*CRX) 5-325 MG TABLET 1 TABLET PO (21:44)
[2024-02-13] MEDS: ZOLPIDEM TARTRATE (*CRX) 5 MG TABLET PO (21:45)
[2024-02-14] VITALS: PULSE 86
[2024-02-14 04:00] VITALS: PULSE 96
[2024-02-14] MEDS: oxyCODONE/ACETAMINOPHEN (*CRX) 5-325 MG TABLET 1 TABLET PO ×3 (04:25→13:06)
[2024-02-14] MEDS: PIPERACILLIN/TAZ 4.5G/NS 100ML 4.5 GM/100 ML BAG IVPB (04:25)
[2024-02-14 05:08] VITALS: BP 121/76; PULSE 90; RESP 20; TEMP 36.7; O2SAT 96
[2024-02-14 06:21] LABS: Basophils Percent Auto 0.1 % (0.2-1.2); Eosinophils Absolute Auto 0.2 K/mm3 (0-0.3); Eosinophils Percent Auto 2.8 % (0-4.4); Hematocrit 30.9 % (37.0-47.0); Hemoglobin 10.1 g/dL (12.0-15.0); Immature Granulocyte Absolute 0.05 K/mm3 (0.00-0.031); Immature Granulocyte Percent A 0.7 % (0-0.5); Lymphocytes Absolute Auto 0.89 K/mm3 (0.9-3.2); Lymphocytes Percent Auto 11.7 % (18.3-44.2); Mean Corpuscular HGB Conc 32.7 g/dl (32-36); Mean Corpuscular Hemoglobin 29.4 pg (26-34); Mean Corpuscular Volume 89.8 fl (80-100); Mean Platelet Volume 8.9 fl (7.4-10.4); Monocytes Absolute Auto 0.5 K/mm3 (0.1-0.6); Monocytes Percent Auto 6.4 % (2.6-8.5); Neutrophils Percent Auto 78.3 % (45.5-73.1); Platelet Count Result 288 k/mm3 (150-375); Red Blood Count 3.44 M/mm3 (4.2-5.4); Red Cell Distribution Width 12.2 % (11.5-14.5); White Blood Count 7.6 K/mm3 (4.5-10.0)
[2024-02-14 06:42] LABS: Alanine Aminotransferase 55 U/L (6-35); Albumin Level 3.4 g/dL (3.5-5.1); Alkaline Phosphatase 76 U/L (38-126); Anion Gap 7 mmol/L (4-12); Aspartate Amino Transferase 54 U/L (14-36); Bilirubin,Total 0.6 mg/dL (0.2-1.3); Blood Urea Nitrogen 10 mg/dL (7-17); Calcium 8.8 mg/dL (8.4-10.2); Carbon Dioxide 27 mmol/L (22-30); Chloride 103 mmol/L (98-107); Estimated CRCL calculation 91 ml/min; Estimated Glomerular Filt Rate > 60; Glucose 98 mg/dL (65-110); Magnesium 2.1 mg/dL (1.6-2.3); Sodium 137 mmol/L (137-145)
[2024-02-14 08:00] VITALS: PULSE 89
[2024-02-14] MEDS: APIXABAN 5 MG TABLET 10 MG PO (08:22)
[2024-02-14] MEDS: AMOXICILLIN/CLAVULANATE K 875-125 MG TAB 1 TABLET PO (10:24)
[2024-02-14] MEDS: AZITHROMYCIN 250 MG TABLET 500 MG PO (10:24)
--- NOTE | 2024-02-14 11:52 | P.DS_ITS ---
DS: Admitting Diagnosis Discharge Date 02/14/24 Admitting Diagnosis pulmonary embolism pneumonia DS: Summary Hospital Course Reason for hospitalization: pulmonary embolism pneumonia Hospital Course: This is a 33-year-old female who presented to the hospital on 02/12/2024 with chest tightness. She is 4 days postop from bilateral breast augmentation intention abdominal plasty with liposuction with Dr. Lamb. workup in the hospital included a chest x-ray which showed patchy bilateral mid and particularly the lower lung infiltrate and or atelectasis. Chest/abdomen/ pelvis CTA shown limited left lower lobe pulmonary embolism, edema of subcutaneous emphysema of the chest and abdominal wall. Initial labs showed a normal white blood cell count of 6.5, hemoglobin 10.3, sodium 136. UA was obtained and was negative. Blood cultures are showing no growth on preliminary read. Patient was initiated on a heparin drip and then transitioned to Eliquis. She is also being treated for pneumonia and was started on Zosyn which we switched to Augmentin and azithromycin. She is stable for discharge at this time. She will Need to follow-up with her primary care doctor in 1 week. she will also need to follow up with her plastic surgery team as are any previously scheduled. final diagnosis: pulmonary embolism, hospital-acquired pneumonia Status at Discharge Cognitive/behavioral status at discharge: alert oriented x4 Functional status at discharge: independent ambulation Overall status at discharge: patient is progressing back to baseline Time Spent with Patient Time attestation: Total time spent providing and/or coordinating discharge services: Time spent: Greater than 30 minutes Exam Narrative: General: In no acute distress, well nourished Head: atraumatic, no encephalopathy Eyes: EOMI, PERRLA, sclera clear ENT: moist mucous membranes, nasal passages clear Neck: supple, no JVD, no adenopathy, trachea midline Cardiac: Normal S1 and S2. No murmur, gallops or friction rubs, peripheral pulses intact. Respiratory: Lungs clear to auscultation, no adventitious lung sounds, currently on room air Gastrointestinal: soft, non-distended, non-tender, normoactive bowel sounds. : voiding without difficulty. Extremities: moves all extremities well, no edema, good ROM, strength 5/5 Skin: transverse incision on lower abdomen well approximated and open to air abdominal binder in place, bilateral breast incisions with surgical glue open to air Neuro: Alert and oriented x4, cranial nerves intact, no neuro deficits. Psych: normal mood, normal affect, interactive DS: Data Data Completed and Pending Completed studies during hospitalization: chest/abdomen/ pelvis CTA chest x-ray Pending studies at discharge: blood cultures Labs on day of discharge: Labs from last 24 hours 02/14/24 05:58 WBC 7.6 RBC 3.44 L Hgb 10.1 L Hct 30.9 L MCV 89.8 MCH 29.4 MCHC 32.7 RDW 12.2 Plt Count 288 MPV 8.9 Immature Gran % (Auto) 0.7 H Neut % (Auto) 78.3 H Lymph % (Auto) 11.7 L Mcpherson % (Auto) 6.4 Eos % (Auto) 2.8 Baso % (Auto) 0.1 L Lymph # (Auto) 0.89 L Mcpherson # (Auto) 0.5 Eos # (Auto) 0.2 Baso # (Auto) 0.0 Abs Immat Gran (auto) 0.05 H Absolute Neuts (auto) 6.0 Absolute Nucleated RBC 0.000 Nucleated RBC % 0.0 Sodium 137 Potassium 4.0 Chloride 103 Carbon Dioxide 27 Anion Gap 7 BUN 10 Creatinine 0.90 Estim Creat Clear Calc 91 Estimated GFR > 60 Glucose 98 Calcium 8.8 Magnesium 2.1 Total Bilirubin 0.6 AST 54 H ALT 55 H Alkaline Phosphatase 76 Total Protein 7.0 Albumin 3.4 L Preliminary micro results at discharge 02/12/24 12:12 Blood Culture - Preliminary Blood 02/12/24 12:10 Blood Culture - Preliminary Blood Procedures/Treatments: none Discharge Plan Discharge Attending physician on discharge: Francisco Barriga Consulting providers: Ifeanyi Lamb; Bridget Tiwari Discharging Clinician: Bridget Tiwari Anticipated Discharge Date/Time: 02/14/24 11:48 Patient Disposition: Home, Self-Care Activity: may shower and as tolerated Diet: as tolerated Discharge Instructions: * No driving while you are taking pain medication. * Take all prescribed medication as directed * Diet as tolerated. Encourage good nutrition / protein intake. * Regular walking / ambulation. * May shower. Do not take pain medication before showering as the combination of medication and heat may cause you to feel dizzy or pass out. * No pools or tubs for 2 weeks. * Slowly stand up straight as tolerated. * No straining or lifting more than 20 pounds. * If no bowel movement within 24 hours may use laxative. * Call with any questions or concerns. * Dressing Care: Continue abdominal binder / foam 23 hours per day and surgical bra. If you have any questions or concerns, please call the office . If it is after hours you will be directed to the full fashioned garment knitter exchange. Shortness of breath, chest pain, or other medical emergency dial 911 / proceed to the Emergency Room. * Finish all antibiotics as directed even if you are feeling better * Follow up with your primary care doctor in 1 week * Follow up with Plastic surgery as previously scheduled. * Continue taking Eliquis for your pulmonary embolism. Finish the 10 mg bottle first, then switch to the 5mg bottle. Patient Instructions: Antibiotic Form, Amoxicillin/Clavulanate Potassium (By mouth), Azithromycin (By mouth), Apixaban (By mouth), Pulmonary Embolism (DC), Community Acquired Pneumonia (DC) Patient Language: Beninese Stand Alone Forms: General Discharge Information Follow-up/Referrals: Helen Garber, MARIA DEL CARMEN [Primary Care Provider] - 1 Week Discharge Medications: New docusate sodium 100 mg Capsule 100 mg PO Q12H PRN (Reason: Constipation) Qty: 20 0RF polyethylene glycol 3350 [Miralax] 17 gram Powder In Packet 17 g PO QAM PRN (Reason: Constipation) Qty: 10 0RF Eliquis 5 mg Tablet 10 mg PO Q12HR Qty: 9 0RF Eliquis 5 mg Tablet 5 mg PO Q12HR Qty: 60 0RF azithromycin [Zithromax] 250 mg Tablet 500 mg PO DAILY Qty: 4 0RF amoxicillin-pot clavulanate 875-125 mg tablet 1 tablet PO Q12H Qty: 9 0RF Continued cephalexin 500 mg capsule 500 mg PO Q8H 7 Days Qty: 21 0RF carisoprodol 350 mg tablet 350 mg PO Q8H PRN (Reason: Muscle Spasm) ondansetron HCl 4 mg tablet 4 mg PO PRN PRN (Reason: Nausea) oxycodone-acetaminophen 5-325 mg tablet 1 tablet PO Q6H PRN (Reason: Pain) docusate sodium 100 mg capsule 100 mg PO BID enoxaparin 40 mg/0.4 mL syringe 40 mg subcut DAILY Date of admission: 02/13/24 16:21 Primary Care Provider: Helen Garber Admitting Provider: Gail Chiu Attending physician on admission: Keyanna Gant Condition: Improved
[2024-02-14 12:00] VITALS: PULSE 107
== END 2024-02-14 13:30 | disposition home or self-care (01) | DRG 205 ==
LOC: ANHED 19:33 → ANH2MED 22:44
PROVIDERS: Nurse Practitioner Adult Health; Admitting Provider General Practice; Emergency Provider Student in an Organized Health Care Education/Training Program; PCP Nurse Practitioner Family; Visit Provider Nurse Practitioner Acute Care
DX: J95.89 Other postprocedural complications and disorders of respiratory system, not elsewhere classified (principal); I26.99 Other pulmonary embolism without acute cor pulmonale; J18.9 Pneumonia, unspecified organism; K50.90 Crohn's disease, unspecified, without complications; D64.89 Other specified anemias; K59.00 Constipation, unspecified; L30.9 Dermatitis, unspecified; G47.10 Hypersomnia, unspecified; G47.33 Obstructive sleep apnea (adult) (pediatric); F32.A Depression, unspecified; F41.9 Anxiety disorder, unspecified; Z87.891 Personal history of nicotine dependence
CPT/HCPCS: 36415; 71045; 71275; 74177; 80048; 80053; 81003; 81025; 83690; 83735; 84484; 85014; 85018; 85025; 85027; 85380; 85610; 85730; 87040; 87641; 93005; 93306; 96365; 96366; 96372; 96374; 96375; 96376; 99285; A9270; G0378; J1171; J1644; J1650; J2405; J2543; Q9967

== ENCOUNTER 2024-03-05 13:54 | Outpatient (NON) | payer OTHER, SELFPAY | END 2024-03-05 13:55 | disposition home or self-care (01) | LOC: ANHLAB 13:56 | PROVIDERS: PCP Nurse Practitioner Family; Visit Provider Surgery Plastic and Reconstructive Surgery | DX: S21.001A Unspecified open wound of right breast, initial encounter (principal); X58.XXXA Exposure to other specified factors, initial encounter | CPT/HCPCS: 87070; 87075; 87205 ==

== ENCOUNTER 2024-03-19 14:29 | Outpatient (NON) | payer OTHER, SELFPAY | END 2024-03-19 14:30 | disposition home or self-care (01) | PROVIDERS: PCP Nurse Practitioner Family; Visit Provider Surgery Plastic and Reconstructive Surgery | DX: S21.009A Unspecified open wound of unspecified breast, initial encounter (principal); X58.XXXA Exposure to other specified factors, initial encounter | CPT/HCPCS: 87070; 87075; 87205 ==

== ENCOUNTER 2024-05-31 13:44 | Outpatient (NON) | payer OTHER, SELFPAY ==
--- OUTSIDE RECORDS SUMMARY | 2024-05-31 13:49 | XMS_ITS | Data Portability ---
Author Organization [facility] Address [address] [place] [address] Care Team Providers Care Lawyer Probate Name Role Phone SERGIO SCHMID Primary Care Provider Assessment Encounter Date Assessment Date Assessment LastModified by Organization Details LastModified Time 06/04/2021 06/04/2021 Annual gynecological exam performed. Patient will come back in a year unless there are new symptoms. [email or web address] Not available 05/22/2021 16:29:38 06/09/2023 06/09/2023 Annual gynecological exam performed. Patient will come back in a year unless there are new symptoms. Not available 06/09/2023 09:16:50 Plan of Treatment Reminders Order Date Submit Date Provider Last Modified By Organization Details Last Modified Time Details Appointments None recorded. Lab test, urine 2023 [facility], [address], [place], [address], 4 09:45:37 TSH, serum or plasma 2023 [facility] (Lab), [address], [place], [address], 4 01:19:47 prolactin, serum 2023 024 [facility] (Lab), [address], [place], [address], 4 01:19:46 FSH (follicle-s timulating hormone), serum 2023 024 [facility] (Lab), [address], [place], [address], 4 01:19:47 estradiol, serum 2023 024 [facility] (Lab), [address], [place], [address], 4 01:19:45 testosteron e free/testos terone total, ratio, serum 2023 024 [facility] (Lab), [address], [place], [address], 4 01:19:48 lh (luteinizin g hormone), serum 2023 024 [facility] (Lab), [address], [place], [address], 4 01:19:46 HbA1c (hemoglobin A1c), blood 2023 024 [facility] (Lab), [address] [place], [address], 4 01:19:47 Referral None recorded. Procedures None recorded. Surgeries None recorded. Imaging None recorded. Medication Orders Slynd 4 mg (28) tablet 2023 024 AWEN[id number], [address], [place], [address], 4 11:00:57 Diflucan 100 mg tablet 2021 022 [email or web address] [id number], [address], [place], [id number], 3 09:41:09 Patient TargetsNo targets recorded. Patient InstructionsNo instructions recorded. Reason for Referral None Reported. Results Created Date Observation Date Name Description Value Unit Range Abnormal Flag Note LastModifiedBy Organization Detail LastModifiedTime 06/09/19 24 06/09/2023 ESTRA DIOL estradiol 39.5 pg/mL This assay was perfo rmed using [employer] ratio n reage nts and test kits. Value s obtai kaelyn with other assay metho ds or kits canno t be used inter [facility] . Femal e Estra diol Range s: Folli cular phase 12.4- 233 pg/mL Ovula tion phase 41.0- 398 pg/mL Lutea l phase 22.3- 341 pg/mL Postm enopa usal< 5-138 pg/mL Healt hy Pregn ant Women 1st Trime ster1 54-32 43 pg/mL 2nd Trime ster1 561-2 1280 pg/mL 3rd Trime ster8 525-> 95343 pg/mL Not Available [facility] (Lab) [address], [place], [address], 06/14/2023 01:19:45 06/09/19 24 06/09/2023 PROLA CTIN prolactin, total 15.30 NG/mL 4.79-2 3.30 This assay was perfo rmed using [employer] ratio n reage nts and test kits. Value s obtai kaelyn with other assay metho ds or kits canno t be used inter [facility] . Not Available [facility] (Lab) [address], [place], [address], 06/14/2023 01:19:46 06/09/19 24 06/09/2023 LH (LUTE NIZIN G HORMO NE) LH 16.2 mIU/m L This assay was perfo rmed using [employer] ratio n reage nts and test kits. Value s obtai kaelyn with other assay metho ds or kits canno t be used [facility] . Femal es Mid-F ollic ular: 2.4-1 2.6 mIU/m L Mid-C ycle: 14.0- 95.6 mIU/m L Mid-L uteal : 1.0-1 1.4 mIU/m L Postm enopa use: 7.7-5 8.5 mIU/m L Not Available [facility] (Lab) [address], [place], [address], 06/14/2023 01:19:46 06/09/19 24 06/09/2023 FSH FSH 5.8 mIU/m L This assay was perfo rmed using [employer] ratio n reage nts and test kits. Value s obtai kaelyn with other assay metho ds or kits canno t be used inter [facility] . Femal es Folli cular : 3.5-1 2.5 mIU/m L Ovula tion: 4.7-2 1.5 mIU/m L Lutea l: 1.7-7 .7 mIU/m L Postm enopa use: 25.8- 134.8 mIU/m L Not Available [facility] (Lab) [address], [place], [address], 06/14/2023 01:19:47 06/09/19 24 06/09/2023 TSH, REFLE X FREE T4 TSH 2.70 uIU/m L 0.30-5 .33 Not Available [facility] (Lab) [address], [place], [address], 06/14/2023 01:19:47 06/09/19 24 06/09/2023 HEMOG LOBIN A1C hemoglobin A1C 5.1 % 0-5.6 The Ameri can [employer] iatio n recom mends that a prima ry goal of thera py yukiul d be a HBA1C of < 7% and that physi cians shoul d reeva luate the treat ment regim en in patie nts with HBA1C value s consi stent ly > 8%. <5.7% Ny l 5.7 - 6.4% Incre ased risk for diabe gucci >=6.5 % Diagn ostic of diabe gucci <7.0% Goal of thera py >8.0% Actio n sugge sted Not Available [facility] (Lab) [address], [place], [address], 06/14/2023 01:19:47 06/09/19 24 06/09/2023 TESTO STERO NE, FREE( DIALY SIS) AND TOTAL (LC/M S/MS) testosterone , total 192 NG/dL 2-45 high For addit ional [facility] p[facility] e refer to http: //[facility] yocasta moses.que stdia gnost ics.c om/fa q/ Total Testo stero neLCM SMSFA Q165 (This link is being provi ded for infor [facility]/ educa shlomo l purpo ses only. ) This test was devel oped and its stevenson tical perfo rmanc e gina cteri stics have been deter mined by [employer] [place], [place]. It has not been clear ed or appro ty by the U.S. Food and Drug Admin istra tion. This assay has been valid ated pursu ant to the CLIA regul ation s and is used for clini maricel purpo ses. Not Available [facility] (Lab) [address], [place], [address], 06/14/2023 01:19:48 06/09/19 24 06/09/2023 TESTO STERO NE, FREE( DIALY SIS) AND TOTAL (LC/M S/MS) testosterone , free 23.0 pg/mL 0.1-6. 4 high This test was devel oped and its stevenson tical perfo rmanc e gina cteri stics have been deter mined by [employer] [place], [place]. It has not been clear ed or appro ty by the U.S. Food and Drug Admin istra tion. This assay has been valid ated pursu ant to the CLIA regul ation s and is used for clini maricel purpo ses. Perfo rming Organ izati on [facility] n: Site ID: AMD Name: [employer] ostjohanne [facility] Addre ss: [id number] [place], [place] Direc tor: Robbin Bosch MD PhD Not Available [facility] (Lab) [address], [place], [address], 06/14/2023 01:19:48 06/09/1906/09/2023 pregn naun test, urine HCG negati ve Not Available [facility] [address], [place], [address], 06/09/2023 09:42:24 Result Notes None recorded. Problems Name Problem SNOMED Code Status Onset Date Resolution Date Notes Provider Name and Address Organization Details Recorded Time Crohn's disease 72274789 Completed 201909/08/[address] [facility] 17:34:30 Syphilis test finding [id number] Completed 201405/14/2020 Encntr screen for infectio ns w sexl mode of transmis s;Practi ce ID: [address] [facility] 18:43:37 Secondar y amenorrh ea 311072328 Completed 201405/14/2020 Secondar y amenorrh ea;Pract ice ID: 0001 [facility], [facility] 18:43:22 Pregnanc y detectio n examinat ion Completed 201405/14/2020 Encounte r for pregnanc y test, result positive ;Practic e ID: [address] [facility] 18:43:00 Generali zed abdomina l tenderne ss [id number] Completed 201405/14/2020 Generali zed abdomina l tenderne ss;Pract ice ID: [address] [facility] 18:42:06 Abdomina l pain [id number] Completed 201405/14/2020 Unspecif ied abdomina l pain;Pra ctice ID: 0001 Patricia waller, [facility] 18:41:06 Gestatio n period, 9 weeks [id number] Completed 201405/14/2020 9 weeks gestatio n of pregnanc y;Practi ce ID: 0001 Patricia Martha waller, [facility] 18:42:42 Normal pregnanc y in multigra camille [id number] 50287 Completed 201505/14/2020 Encounte r for suprvsn of normal pregnanc y, first trimeste r;Practi ce ID: 0001 Patricia waller, [facility] 18:42:55 Pregnanc y, childbir th and puerperi um finding Completed 201505/14/2020 Oth pregnanc y related conditio ns, third trimeste r;Practi ce ID: 0001 Patricia waller, [facility] 18:41:24 Gestatio n period, 24 weeks [id number] Completed 201505/14/2020 24 weeks gestatio n of pregnanc y;Practi ce ID: 0001 Patricia waller, [facility] 18:42:13 False labor before 37 complete d weeks of gestatio n [id number] 4041951 Completed 201505/14/2020 False labor before 37 complete d weeks of gest, second tri;Prac navi ID: 0001 Patricia waller, [facility] 18:41:47 Gestatio n period, 25 weeks [id number] Completed 201505/14/2020 25 weeks gestatio n of pregnanc y;Practi ce ID: 0001 Patricia waller, [facility] 18:42:15 Clinical finding Completed 201512/23/2020 Gastro-e sophagea l reflux disease without esophagi tis;Prac navi ID: 0001 Марина Morgan MD [address], [place], [address], , P.C. 11:42:18 prematur e rupture of membrane s [id number] Completed 201505/14/2020 Pretrm chela ROM, unsp time betw rupt and onst labr, 3rd tri;Prac navi ID: 0001 Patricia waller, [facility] 18:43:13 Gestatio n period, 29 weeks 43489078 Completed 201505/14/2020 29 weeks gestatio n of pregnanc y;Practi ce ID: 0001 Patricia waller, [facility] 18:42:24 Generali zed abdomina l pain 345767974 Completed 201505/14/2020 Generali zed abdomina l pain;Pra ctice ID: 0001 [facility], [facility] 18:42:04 Clinical finding Completed 201505/14/2020 state, incident al;Pract ice ID: 0001 Patricia waller, [facility] 18:41:26 Complica tion of pregnanc y, childbir th and/or puerperi 563337697 Completed 201505/14/2020 Oth diseases and conditio ns compl preg/chl dbrth;Pr actice ID: 0001 Patricia waller, [facility] 18:43:44 Gestatio n period, 30 weeks [id number] Completed 201505/14/2020 30 weeks gestatio n of pregnanc y;Practi ce ID: 0001 Patricia waller, [facility] 18:42:27 Gestatio n period, 32 weeks [id number] Completed 201505/14/2020 32 weeks gestatio n of pregnanc y;Practi ce ID: 0001 Patricia Thomas null, [facility] 18:42:29 Urinary tract infectio us disease [id number] Completed 201505/14/2020 Urinary tract infectio n, site not specifie d;Practi ce ID: 0001 [facility], [facility] 18:43:46 Pregnanc y, childbir th and puerperi um finding Completed 201505/14/2020 Encntr for suprvsn of normal first preg, third trimeste r;Practi ce ID: 0001 Patricia Martha waller, [facility] 18:43:[address] Concept Completed 201505/14/2020 Decrease d movement s, third trimeste r, unsp;Pra ctice ID: 0001 [facility], [facility] 18:43:27 Gestatio n period, 35 weeks 80792135 Completed 201505/14/2020 35 weeks gestatio n of pregnanc y;Practi ce ID: 0001 [facility], [facility] 18:42:34 Gestatio n period, 36 weeks [id number] Completed 201505/14/2020 36 weeks gestatio n of pregnanc y;Practi ce ID: 0001 [facility], [facility] 18:42:36 Term pregnanc y delivere d [id number] Completed 201505/14/2020 Encounte r for full-ter m uncompli cated delivery ;Practic e ID: 0001 Patricia waller, [facility] 18:43:39 Single live [id number] Completed 201505/14/2020 Single live ;Pr actice ID: 0001 Patricia Thomas sridhar [facility] 18:43:24 Lochia finding Completed 201505/14/2020 Encounte r for routine postpart um follow-u p;Practi ce ID: 0001 Patricia Thomas sridhar [facility] 18:42:[address] Concept Completed 201505/14/2020 Encntr for general adult medical exam w/o abnormal findings ;Practic e ID: 0001 Patricia Thomas sridhar [facility] 18:43:30 Acute vaginiti s [id number] Completed 201605/14/2020 Acute vaginiti s;Practi ce ID: 0001 [facility] 18:41:08 Educatio n Completed 201605/14/2020 Encounte r for oth general cnsl and advice on contrace ption;Pr actice ID: 0001 [facility] 18:41:36 Pregnanc y test negative [id number] Completed 201605/14/2020 Encounte r for pregnanc y test, result negative ;Practic e ID: 0001 Patricia Thomas sridhar [facility] 18:43:02 Uterine size for dates discrepa ncy Completed 201605/14/2020 Uterine size-joanie e discrepa ncy, first trimeste r;Practi ce ID: 0001 [facility] 18:43:49 Finding of contents of cervix 915804244 Completed 201605/14/2020 Weeks of gestatio n of pregnanc y not specifie d;Practi ce ID: 0001 Patricia waller, [facility] 18:41:56 Amenorrh ea 32466891 Completed 201605/14/2020 Amenorrh ea, unspecif ied;Prac navi ID: 0001 Patricia waller, [facility] 18:41:12 Threaten ed miscarri age 92933493 Completed 201605/14/2020 Threaten ed ;Practic e ID: 0001 Patricia waller, [facility] 18:43:41 Antenata l screenin g Completed 201605/14/2020 Encounte r for antenata l screenin g for nuchal transluc ency;Pra ctice ID: 0001 Patricia waller, [facility] 18:41:15 Gestatio n period, 12 weeks [id number] Completed 201605/14/2020 12 weeks gestatio n of pregnanc y;Practi ce ID: 0001 Patricia waller, [facility] 18:42:08 Evaluati on finding Completed 201605/14/2020 Hematuri a, unspecif ied;Prac navi ID: 0001 Patricia waller, [facility] 18:41:42 Gestatio n period, 18 weeks [id number] Completed 201605/14/2020 18 weeks gestatio n of pregnanc y;Practi ce ID: 0001 Patricia waller, [facility] 18:42:11 Antenata l screenin g for malforma tion Completed 201605/14/2020 Encounte r for antenata l screenin g for malforma tions;Pr actice ID: 0001 Patricia waller, [facility] 18:41:18 Pregnanc y, childbir th and puerperi um finding Completed 201705/14/2020 Oth pregnanc y related conditio ns, second trimeste r;Practi ce ID: 0001 Patricia waller, [facility] 18:41:22 Gestatio n period, 27 weeks [id number] Completed 201705/14/2020 27 weeks gestatio n of pregnanc y;Practi ce ID: 0001 Patricia waller, [facility] 18:42:20 Prematur e labor [id number] Completed 201705/14/2020 labor without delivery , third trimeste r;Practi ce ID: 0001 Patricia waller, [facility] 18:43:10 Gestatio n period, 28 weeks 60398539 Completed 201705/14/2020 28 weeks gestatio n of pregnanc y;Practi ce ID: 0001 Patricia waller, [facility] 18:42:22 Hemorrha gic complica tion of pregnanc y 853874650 Completed 201705/14/2020 Other hemorrha ge in early pregnanc y;Practi ce ID: 0001 Patricia waller, [facility] 18:42:48 False labor at or after 37 complete d weeks of gestatio n 358155564 Completed 201705/14/2020 False labor at or after 37 complete d weeks of gestatio n;Practi ce ID: 0001 Patricia waller, [facility] 18:41:45 Gestatio n period, 38 weeks [id number] Completed 201705/14/2020 38 weeks gestatio n of pregnanc y;Practi ce ID: 0001 Patricia waller, [facility] 18:42:38 Gestatio n period, 39 weeks [id number] Completed 201705/14/2020 39 weeks gestatio n of pregnanc y;Practi ce ID: 0001 Patricia waller, [facility] 18:42:[address] Concept Completed 201705/14/2020 Encntr for speech and language clinician exam (general ) (routine ) w/o abn findings ;Practic e ID: 0001 Patricia waller, [facility] 18:43:32 Insertio n of intraute rine contrace ptive device Completed 201705/14/2020 Encounte r for insertio n of intraute rine contrace ptive device;P ractice ID: 0001 Patricia waller, [facility] 18:42:50 Finding of pattern of menstrua l cycle 599104401 Completed 201705/14/2020 Excessiv e and frequent menstrua tion with irregula r cycle;Pr actice ID: 0001 Patricia waller, [facility] 18:42:01 Contrace ptive sheath status 846060319 Completed 201705/14/2020 Encounte r for routine checking of intraute rine contrace p dev;Prac navi ID: 0001 Patricia waller, [facility] 18:41:30 Removal of intraute rine device Completed 201905/14/2020 Encounte r for removal of intraute rine contrace ptive device;P ractice ID: 0001 Patricia waller, [facility] 18:43:16 Pregnanc y test positive 604029006 Completed 201405/14/2020 Pregnanc y examinat ion or test, positive result;R ecorded Elsewher e: No [facility] [employer] Applications Engineer laney: N Javier ce ID: 0001 Seymour lable Time: 11:00:00 AM Patricia waller [facility] 1 18:43:05 Female genital organ symptoms [id number] Completed 201405/14/2020 Pelvic pain;Rec orded Elsewher e: No [facility]: EHR C[employer] Applications Engineer laney: N Practi ce ID: 0001 Seymour lable Time: 09:30:00 AM [facility] 18:41:50 Dysfunct ional uterine bleeding Completed 201405/14/2020 Other disorder s of menstrua tion and other abnormal bleeding from female genital tract;Re corded Elsewher e: No Locat ion: [facility]: N Robertati ce ID: 0001 Seymour lable Time: 03:30:[address] [facility] 1 18:41:33 Adult health examinat ion Completed 201405/14/2020 ROUTINE MEDICAL EXAM;Rec orded Elsewher e: No Locat ion: [facility] S ource: [employer] Applications Engineer laney: N Robertati ce ID: 0001 Seymour lable Time: 01:00:00 PM Patricia waller [facility] 1 18:41:10 Pelvic and perineal pain 915386167 Completed 201705/14/2020 Pelvic and perineal pain;Rec orded Elsewher e: No Locat ion: [facility]: N Robertati ce ID: 0001 Seymour lable Time: 08:45:00 AM Patricia waller [facility] 18:42:58 Clinical finding Completed 201707/17/2020 Presence of (intraut erine) contrace ptive device;R ecorded Elsewher e: No Locat ion: [facility] S ource: E[employer] Applications Engineer laney: N Practi ce ID: 0001 Seymour lable Time: 02:30:00 PM Rebecca Jacob sridhar, [facility] 12:15:19 Female infertil ity [id number] Completed 201405/14/2020 Female infertil ity;Wilner rded Elsewher e: No Locat ion: [facility] S ource: EHR [employer] Applications Engineer laney: N Practi ce ID: 0001 Seymour lable Time: 01:30:00 PM Patricia waller, [facility] 18:41:53 Gestatio n period, 33 weeks 99365089 Completed 201505/14/2020 33 weeks gestatio n of pregnanc y;Record ed Elsewher e: No Locat ion: [facility] S ource: EHR [employer] Applications Engineer laney: N Practi ce ID: 0001 Seymour lable Time: 11:00:00 AM Patricia waller, [facility] 18:42:31 Gestatio n period, 26 weeks [id number] Completed 201505/14/2020 26 weeks gestatio n of pregnanc y;Record ed Elsewher e: No Locat ion: [facility] S ource: EHR C[employer] Applications Engineer laney: N Practi ce ID: 0001 Seymour lable Time: 02:00:00 PM Patricia waller, [facility] 18:42:17 Speciali zed medical examinat ion Completed 201405/14/2020 Gynecolo gical Examinat ion;Wilner rded Elsewher e: No Locat ion: [facility] S ource: EHR [employer] Applications Engineer laney: N Practi ce ID: 0001 Seymour lable Time: 01:00:00 PM Patricia waller [facility] 18:43:35 Emotiona l state finding Completed 201705/14/2020 Anxiety depressi on;Recor ded Elsewher e: No Locat ion: [facility] S ource: EHR Cnc Applications Engineer laney: N Practi ce ID: 0001 Seymour lable Time: 09:45:00 AM [facility], [facility] 18:41:39 Atypical squamous cells of undeterm ined signific ance on cervical Papanico laou smear 607936780 Completed 201409/08/2021 [facility], [facility] 2 17:34:30 Screenin g for malignan t neoplasm of cervix Completed 201405/14/2020 Pap Smear;Pr actice ID: 0001 Patricia [facility], [facility] 18:43:20 Pregnanc y [id number] Completed 202001/08/2021 [facility] 12:04:31 Headache 59568547 Completed Rxed fioricet Nicki hicks [facility] 12:04:24 Dyspnea [id number] Completed NL holter [facility], [facility] 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 12:04:24 Obesity 773955859 Completed 37 week antenata l testing weekly [facility] 09/23/202 1 12:04:24 Ultrasou nd scan abnormal [id number] Completed cisterna magna borderli ne marya rich at [facility] 11/26- They recommen d brain MRI to evaluate posterio r fossa- Let peds know! Nickivlad [facility], [facility] 1 12:04:24 Past pregnanc y history of postpart um hemorrha ge 182023831 Completed [facility], [facility] 1 12:04:24 Anxiety 03162617 Completed sertrali ne Nicki hicks [facility] 12:04:24 Problem Notes None recorded. Procedures Surgical History Date Name Laterality Status Provider Name and Address Organization Details Recorded Time 06/09/19 24 Date of Last Pap Smear completed Elizabeth Childers [facility] 06/09/2023 09:27:05 09/17/19 22 extraction of wisdom tooth completed Patricia Thomas [facility] 07/29/2022 09:41:59 04/18/19 15 excision of colon completed VANESSA Hinds [address], [place], [address], , P.C. 06/09/2023 09:36:29 04/18/19 15 appendectomy completed Patricia Thomas [facility] 05/14/2020 19:43:41 Imaging Results None recorded. Procedure Notes None recorded. Medical Equipment None Reported. Allergies No known drug allergies Medications Name Sig Start Date Stop Date Status Note LastModified by Organization Details LastModified Time amoxicill in 500 mg capsule TAKE 1 CAPSULE BY MOUTH EVERY 6 HOURS X7 DAYS 06/09 completed Not Available Not Available Not Available Mirena 21 mcg/24 hr (up to 8 years) 52 mg intrauter ine device Take by intraute rine route. 08/05 completed Not Available Not Available Not Available fluconazo le 100 mg tablet take 2 TABLETS BY MOUTH today AND THEN 1 daily x 14 DAYS 07/29 completed Not Available Not Available Not Available venlafaxi ne ER 37.5 mg capsule,e xtended release 24 hr TAKE 1 CAPSULE BY MOUTH EVERY DAY active Not Available Not Available No t Available clindamyc in HCl 300 mg capsule TAKE 1 CAPSULE BY MOUTH EVERY 8 HOURS FOR 7 DAYS. 01/26 completed Not Available Not Available Not Available triazolam 0.25 mg tablet TAKE 1TAB BY MOUTH 1 HR BEFORE APPOINTM ENT&BRIN G 1TAB TO APPT. *DO NOT DRIVE ON THIS MEDICATI ON* 06/09 completed Not Available Not Available Not Available ibuprofen 800 mg tablet 800 MG ORALLY EVERY 8 HOURS NEEDED FOR PAIN 06/09 completed Not Available Not Available Not Available hydrocodo ne 5 mg-acetam inophen 325 mg tablet TAKE ONE TABLET BY MOUTH EVERY 4 TO 6 HOURS NEEDED FOR PAIN 07/29 completed Not Available Not Available Not Available metronida zole 0.75 % (37.5 mg/5 gram) vaginal gel 02/23 completed Not Available Not Available Not Available prednison e 20 mg tablet TAKE 3 TABLETS BY MOUTH DAILY FOR 3 DAYS 05/14 completed Not Available Not Available Not Available Synthroid 100 mcg tablet take 1 tablet by oral route every day 06/06 completed Prescrib ed Elsewher e: No [facility] By: mayo case DateTime : 12/25/19 16 01:00:00 PM Not Available Not Available Not Available sertralin e 100 mg tablet 07/29 completed Not Available Not Available Not Available Diflucan 150 mg tablet take 1 tablet by oral route once 01/31 completed Prescrib ed Elsewher e: No [facility] By: tyler cuellar DateTime : 11/04/19 17 01:36:35 PM Not Available Not Available Not Available phentermi ne 37.5 mg tablet TAKE 1 TABLET BY MOUTH DAILY MUST ADMINIST ER 30 MINUTES BEFORE OR 1-2 HOURS AFTER BREAKFAS T 07/29 completed Not Available Not Available Not Available acetamino phen 300 mg-codein e 30 mg tablet TAKE 1 TABLET BY MOUTH EVERY 4-6 HOURS NEEDED FOR PAIN 06/09 completed Not Available Not Available Not Available amoxicill in 500 mg tablet take 1 tablet by oral route 3 times every day for 10 days 02/13 completed Prescrib ed Elsewher e: No Locat ion: [facility] odify By: binta lópez DateTime : 02/05/20 17 11:42:21 AM Not Available Not Available Not Available Levora 0.15/30 (28) 0.15 mg-0.03 mg tablet take 1 tablet by oral route every day 10/04 completed Prescrib ed Elsewher e: No Locat ion: [facility] odify By: mayo case DateTime : 02/23/20 16 10:00:00 AM Not Available Not Available Not Available Macrobid 100 mg capsule take 1 capsule by oral route every 12 hours with food for 7 days 09/22 completed Not Available Not Available Not Available oxycodone -acetamin ophen 5 mg-325 mg tablet 0.5 - 1 TABLET ORALLY EVERY 4 HOURS NEEDED FOR PAIN 06/09 completed Not Available Not Available Not Available Depo-Prov era 150 mg/mL intramusc ular suspensio n inject 1 millilit er by intramus cular route every 3 months 04/25 completed Prescrib ed Elsewher e: No Locat ion: [facility] odify By: [email or web address] Redman r DateTime : 02/03/20 18 08:15:00 AM Not Available Not Available Not Available Synthroid 25 mcg tablet take 1 tablet by oral route every day 03/31 completed Prescrib ed Elsewher e: No Locat ion: [facility] odify By: rd Redman r DateTime : 03/31/20 17 11:35:05 AM Not Available Not Available Not Available Flagyl 500 mg tablet Take 1 tablet twice a day by oral route for 7 days. 10/11 completed Not Available Not Available Not Available cephalexi n 500 mg capsule TAKE 1 CAPSULE BY MOUTH 2 TIMES A DAY 02/23 completed Not Available Not Available Not Available nitrofura ntoin macrocrys drake 100 mg capsule take 1 capsule by oral route every 12 hours for 7 days with food 05/16 completed Prescrib ed Elsewher e: No Locat ion: [facility] odify By: [email or web address] Encounte r DateTime : 05/10/19 18 08:45:00 AM Not Available Not Available Not Available Synthroid 88 mcg tablet take 1 tablet by oral route daily 09/16 completed Prescrib ed Elsewher e: No [facility] odify By: [email or web address] Coffey ncounter DateTime : 04/28/19 18 02:09:28 PM Not Available Not Available Not Available Synthroid 75 mcg tablet take 1 tablet by oral route every day 02/17 completed Prescrib ed Elsewher e: No Locat ion: [facility] odify By: mayo Redman r DateTime : 06/10/19 16 01:13:40 PM Not Available Not Available Not Available Synthroid 50 mcg tablet take 1 tablet by oral route every day 04/28 completed Prescrib ed Elsewher e: No Locat ion: [facility] odify By: [email or web address] Crockerte r DateTime : 03/31/20 17 11:35:05 AM Not Available Not Available Not Available sertralin e 25 mg tablet TAKE ONE TABLET (25MG) BY MOUTH EVERY DAY. TAKE WITH SERTRALI NE 50MG TO TOTAL 75MG DAILY 07/29 completed Not Available Not Available Not Available Banophen 25 mg capsule TK 1 C PO TID PRN 05/14 completed Not Available Not Available Not Available cephalexi n 500 mg tablet Take 1 tablet by oral route twice daily 01/26 completed Not Available Not Available Not Available Valtrex 500 mg tablet take 1 tablet by oral route every day 07/21 completed Prescrib ed Elsewher e: No Locat ion: [facility] odify By: binta lópez DateTime : 04/25/19 10:15:00 AM Not Available Not Available Not Available epinephri ne 0.3 mg/0.3 mL injection , auto-inje ctor USE IM UTD 07/21 completed Not Available Not Available Not Available Vitamin D2 1,250 mcg (50,000 unit) capsule take 1 capsule by oral route every week 02/17 completed Prescrib ed Elsewher e: No Locat ion: [facility] odify By: mayo Redman r DateTime : 09/01/19 16 01:40:58 PM Not Available Not Available Not Available sertralin e 50 mg tablet Take 1 tablet(s ) every day by oral route. 07/29 completed Not Available Not Available Not Available azithromy arian 1 gram oral packet take 1 packet by oral route dissolve d in 2 ounces of water as a single dose 02/17 completed Prescrib ed Elsewher e: No Locat ion: [facility] odify By: mayo Redman r DateTime : 11/09/19 15 04:15:00 PM Not Available Not Available Not Available iron 18 mg tablet 02/17 completed Prescrib ed Elsewher e: Yes Loca tion: [facility] odify By: mayo Redman r DateTime : 08/20/19 15 01:00:00 PM Not Available Not Available Not Available azithromy arian 500 mg tablet take 2 tablet by oral route once 02/17 completed Prescrib ed Elsewher e: No Locat ion: [facility] odify By: mayo Redman r DateTime : 11/13/19 15 03:47:40 PM Not Available Not Available Not Available Shoshana 0.35 mg tablet TAKE ONE Tablet BY MOUTH DAILY 04/29 completed Not Available Not Available Not Available cyclobenz aprine 5 mg tablet TAKE 1 TABLET BY MOUTH THREE TIMES A DAY NEEDED FOR MUSCLE SPASM active Not Available Not Available No t Available chlorhexi dine gluconate 0.12 % mouthwash RINSE AND expector ate 15 ML BY MOUTH TWICE DAILY 07/29 completed Not Available Not Available Not Available 07/29 completed Not Available Not Available Not Available PNV-DHA 27 mg iron-1 mg-300 mg capsule take 1 capsule by oral route every day 02/17 completed Prescrib ed Elsewher e: No Locat ion: [facility] odify By: mayo Redman r DateTime : 09/12/19 16 08:30:00 AM Not Available Not Available Not Available Prevacid 24Hr 15 mg capsule,d elayed release take 1 capsule by oral route every day before a meal 02/17 completed Prescrib ed Elsewher e: No Locat ion: [facility] odify By: mayo Redman r DateTime : 08/11/19 16 02:00:00 PM Not Available Not Available Not Available butalbita l-acetami nophen-ca ffeine 50 mg-300 mg-40 mg capsule Take 1 capsule every 4 hours by oral route. 01/07 completed Not Available Not Available Not Available STITCHDOWN TOE FORMER-PNV-DH A 28 mg iron-1 mg-200 mg capsule take 1 capsule by oral route every day 09/16 completed Prescrib ed Elsewher e: No [facility] odify By: [email or web address] E ncounter DateTime : 02/15/20 17 02:35:03 PM Not Available Not Available Not Available Xulane 150 mcg-35 mcg/24 hr transderm al patch 05/14 completed Not Available Not Available Not Available Anusol-HC 2.5 % topical cream with perineal applicato r APPLY A THIN LAYER TO THE AFFECTED AREA(S) BY TOPICAL ROUTE 2-4 TIMESDAI LY 01/07 completed Not Available Not Available Not Available Slynd 4 mg (28) tablet Take 1 tablet every day by oral route. active Not Available Not Available No t Available Vitals Date Recorded Body height Body mass index (BMI) Body weight Systolic blood pressure Diastolic blood pressure Provider Name and Address Organization Details Last Updated DateTime 04/29/2021 160.02 cm 36.1 kg/m2 06958.84 g 132 mm[Hg] 84 mm[Hg] Rebecca Jacob ND - [facility] 2 10:43:08 Date Recorded Body height Provider Name an d Address Organization Details Last Updated DateTime 06/04/2021 160.02 cm Marbin Marc MD [address], [place], [address], [facility] 06/04/2021 17:41:06 Date Recorded Body height Body mass index (BMI) Body weight Systolic blood pressure Diastolic blood pressure Provider Name and Address Organization Details Last Updated DateTime 07/29/2022 160.02 cm 35.8 kg/m2 87402.66 g 117 mm[Hg] 82 mm[Hg] Patricia Thomas [facility] 3 09:41:02 Date Recorded Body height Body mass index (BMI) Body weight Systolic blood pressure Diastolic blood pressure Provider Name and Address Organization Details Last Updated DateTime 06/09/2023 160.02 cm 38.4 kg/m2 17913.54 g 117 mm[Hg] 78 mm[Hg] [facility] [place] 4 09:25:33 Date Recorded Body height Body mass index (BMI) Body weight Systolic blood pressure Diastolic blood pressure Provider Name and Address Organization Details Last Updated DateTime 06/22/2023 160.02 cm 39 kg/m2 15243.32 g 133 mm[Hg] 76 mm[Hg] [place] 4 10:06:55 Social History Question Answer Notes LastModified by Organizat ion Details LastModified Time Tobacco Smoking Status Never [facility]oker [facility] 10/12/2019 16:43:32 What Is Your Level Of Alcohol Consumption? None [email or web address] Information not available 05/14/2020 If You Are , What Was Your Level Of Alcohol Consumption Prior To ? None [email or web address] Information not available 05/14/2020 Are You Blind Or Do You Have Difficulty Seeing? No [email or web address] Information n ot available 10/21/2020 What Is Your Level Of Caffeine Consumption? Occasional [email or web address] Information not available 05/14/2020 In The 14 Days Before Symptom Onset, Have You Had Close Contact With A Laboratory-confirm ed COVID-19 While That Case Was Ill? No [email or web address] Information n ot available 10/21/2020 In The 14 Days Before Symptom Onset, Have You Had Close Contact With A Person Who Is Under Investigation For COVID-19 While That Person Was Ill? No [email or web address] Information not available 10/21/2020 Have You Been To An Area Known To Be High Risk For COVID-19? No [email or web address] Information not available 10/21/2020 Are You Deaf Or Do You Have Serious Difficulty Hearing? No [email or web address] Information not available 10/21/2020 What Type Of Diet Are You Following? REGULAR Information n ot available 10/21/2020 Do You Use Your Seat Belt Or Car Seat Routinely? Yes [email or web address] Information not available 10/21/2020 Are You Sexually Active? Yes Information not available 06/09/2023 Do You Have Smoke And Carbon Monoxide Detectors In Your Home? Yes [email or web address] Information not available 10/21/2020 Do You Feel Stressed (tense, Restless, Nervous, Or Anxious, Or Unable To Sleep At Night)? [id number] [email or web address] Information not available 10/21/2020 Do You Use Any Illicit Or Recreational Drugs? No [email or web address] Information not available 05/14/2020 Do You Use Sunscreen Routinely? Yes [email or web address] Information not available 10/21/2020 Has Tobacco Cessation Counseling Been Provided? No [email or web address] Information not available 05/14/2020 Do You Or Have You Ever Used Any Other Forms Of Tobacco Or Nicotine? No Information not available 05/14/2020 Sex: Unknown Functional Status Question Answer Note LastModified by Organizat ion Details LastModified Time Do you have difficulty walking or climbing stairs? No [email or web address] Information not available 07/29/2022 Are you able to walk? YESWOREST [email or web address] Information not available 10/21/2020 Are you able to care for yourself? Yes Information not available 07/29/2022 Do you have difficulty dressing or bathing? No [email or web address] Information not available 07/29/2022 What is your exercise level? Moderate [email or web address] Information not available 10/21/2020 Mental Status None recorded. Family History Relationship Description Onset Age of this Age Resolved Age Notes LastModified by Organization Details LastModified Time Mother Blood coagulation disorder [email or web address] Not available 2019 12:26:30 Mother Cyst of ovary [email or web address] Not available 2019 12:26:53 Mother Endometriosi s (clinical) [email or web address] Not available 12:27:41 Maternal Grandmother Cyst of ovary [email or web address] Not available 2019 12:26:53 Maternal Uncle Diabetes mellitus jgumber Not available 2019 12:27:04 Maternal Aunt Endometriosi s (clinical) jgumber Not available 12:27:41 Medical History Condition Response Allergies (Food, seasonal, environmental ) N Other N Breast Cancer N Drug/Latex Allergies/Reactions N Blood Transfusion N Dermatologic Disorders N Lung Disease N Defects or Inherited Disease N Breast Problem N Gestational Diabetes N Hematologic disorders N Anesthesia Complications N History of STI Y Deep Vein Thrombosis N Polycystic ovary syndrome N Anxiety Disorder N Autoimmune disease N Arthritis N Infertility N Polyps N Acid Reflux (GERD) Y History of abnormal pap Y Cancer N Stroke N Varicosities N Neurologic/Epilepsy N Endometriosis N High Cholesterol N Headaches N Fibromyalgia N Kidney Disease N Heart Problems N Kidney or Bladder Problems N Thyroid Problems N GI Problems Y Eating Disorder N Anemia Y Art (IVF or FET) N Psychiatric Illness N Ovarian Cancer N Diabetes N Pulmonary (TB, Asthma) N Hepatitis/Liver Disease N No Past Medical History N Eczema N Urinary Tract Infection N Abuse/Domestic Violence N Asthma Y Trauma/Violence N Depression/ depression N Heart Disease N Pre-Eclampsia N Hypertension N Osteoporosis N Thrombophilias N Gynecological History Statement/Question Response Abnormal Pap Yes Date of Last Mammogram Flow Moderate Date of LMP 06/10/2023 On BCP's at Conception? N Was last menstrual period normal N STIs/STDs Yes HPV Vaccine N Current Control Method None Age at First Child 26 Are cycles usually normal N Sexually Active? Y Menses Monthly N Date of DEXA bone scan Age of first menstrual cycle 14 Date of Last Pap Smear 06/09/2023 Sexual Problems? N Desired Control Method None LMP Definite 04/18/2014 Obstetrics History GPAL:G 5 P 3 0 2 3 Type Value Full Term 3 Spontaneous 2 Living 3 Total 5 Past Encounters Encounter ID Performer Location Encounter Start Date Encounter Closed Date Diagnosis/Indication Diagnosis SNOMED-CT Code Diagnosis ICD10 Code Diagnosis Note [id number] Melodie Jenkins [facility] [address],[place] [address] 08/06/2019 10:35:26 08/07/2019 13:38:12 Vaginitis 62640283 N76.0 Discussed use of mild soap like dove or ivory, cotton underwear w/out dye, hypoallerg enic detergent, wipe from front to back, avoid tub baths, keep perineum clean and dry, d/c use of baby wipes. Encouraged daily intake of yogurt or womens health probiotic. Internal and external affirm collected along with STD culture per patient request. [id number] Melodie Jenkins [facility] [address],[place] [address] 10/02/2019 11:06:56 10/03/2019 09:16:56 test positive [id number] Z32.01 [id number] Marbin Marc MD [facility] [address],[place] [address] 10/12/2019 16:08:09 10/15/2019 14:20:15 test positive [id number] Z32.01 This patient is a 29-year-ol d female presents for ER follow-up. The patient was seen in the emergency department for Crohn's disease.Sh alexx had a Crohn's flareup. e had novaginal bleeding or cramping. She had a positive test. An ultrasound was performed. There is no evidence of an intrauteri ne gestation. Her quantitati ve hCG was 124.We agreed to repeat ultrasound next week. She should be 6 weeks.She will follow-up after the ultrasound . [id number] Marbin Marc MD [facility] [address],[place] [address] 10/15/2019 13:24:40 10/15/2019 14:36:23 screening [id number] Z36.9 This patient is a 29-year-ol d female who presents for follow-up onearly gestation. Herpregnan cy was of unknown viability. Ultrasound was performed today. Intrauteri ne gestationa l sac and yolk sac were observed.T his is fairly consistent with her suspectedg estational age.She has no complaints . No cramping or bleeding. She will follow-up in 2 weeks. [id number] [facility] [address],[place] [address] 10/15/2019 13:25:12 10/15/2019 17:30:58 Uncertain viability of [id number] O36.80X9 Z3A.01 [id number] [facility] [address],[place] [address] 10/29/2019 15:24:56 10/29/2019 16:21:39 Uncertain viability of [id number] O36.80X9 Z3A.01 [id number] Marbin Marc MD [facility] [address],[place] [address] 10/29/2019 15:25:16 10/29/2019 17:40:59 Crohn's disease [id number] K50.90 This patient is a 29-year-ol d female who presents forfollow- up onfirst trimesterI UP. She has Crohn's disease. She has beenreferr ed to maternal-f etal medicine forher Crohn's disease. She has a 7-week 4-dayIUPto day. An ultrasound was performed. We reviewed those results.Liat coffey is doing well. She had a recent flare of her Crohn's. She is doing well now.We discussed various aspects of care. We discussed monitoring / testing.Liat coffey return in 5 weeks for initial OB. We talked about genetic screening. [id number] Melodie Jenkins [facility] [address],[place] [address] 11/05/2019 17:25:37 11/05/2019 22:15:29 test positive [id number] Z32.01 Risk factors addressed: Tobacco Cessation, Safe Sexual Practices, environmen drake, work hazards, travel restrictio ns, seat belt use.Eat a health well balanced diet, avoid alcohol, tobacco, and street drugs. Engage in daily low impact exercise, avoid temperatur e extremes, and cat, rodent, and bird feces.Avoi d travel to areas where zika virus is a concern.Fi rst look offered to patient. First look accepted by patient and will be scheduled. Sequential Screen handout given and discussed with patient.Ch ildbirth classes recommende d.New OB sheet given. Pt is looking into paternity testing. Both possible FOB are aware. If previous , counseling .Pt verbalizes that she understand s the importance of above instructio ns.All questions were answered. Patient reminded to have annual well woman examinatio n and address [facility] . [id number] Shanita Negrete CNM [facility] [address],[place] [address] 05/14/2020 16:55:26 05/20/2020 12:21:48 Amenorrhea 14850020 N91.2 [id number] Fadumo Cruz [facility] [address],[place] [address] 05/14/2020 16:49:09 05/14/2020 17:28:37 screening [id number] Z36.87 This patient is a 29-year-ol d female who presents for follow-up onearly gestation. Herpregnan cy was of unknown viability. Ultrasound was performed today. Intrauteri ne gestationa l sac and yolk sac were observed.T his is fairly consistent with her suspectedg estational age.She has no complaints . No cramping or bleeding. She will follow-up in 2 weeks. [id number] Marbin Marc MD [facility] [address],[place] [address] 06/10/2020 14:41:22 06/10/2020 16:08:51 Tachycardia 3100618 R00.0 This patient is a 29-year-ol d multiparou s female at 10 weeks gestation with shortness of breath and tachycardi a and headache. We agreed to treat her headache with Fioricet. We have agreed to a cardiac evaluation including a Holter monitor and a cardiology consult. Additional precaution everton measures were taken to minimize potential exposure to the Covid-19 virus during this patient s visit, including available hand identification and records commander upon arrive, temperelliotur e check and being asked a series of screening questions. All staff wore face coverings during this encounter, as well as provided additional cleaning and sanitizing of all surfaces, including countertop s, pens, chairs, door handles, light switches, etc, prior to and following the patient s visit. Orthostati c hypotension [id number] I95.1 Headache 44230683 R51.9 [id number] [facility] [address],[place] [address] 06/23/2020 09:35:05 06/23/2020 10:17:22 screening [id number] Z36.82 This patient is a 29-year-ol d female who presents for follow-up onearly gestation. Herpregnan cy was of unknown viability. Ultrasound was performed today. Intrauteri ne gestationa l sac and yolk sac were observed.T his is fairly consistent with her suspectedg estational age.She has no complaints . No cramping or bleeding. She will follow-up in 2 weeks. [id number] Marbin Marc MD [facility] [address],[place] [address] 06/23/2020 09:35:51 06/23/2020 13:22:37 Routine care [id number] Z34.91 Headache [id number] R51.9 [id number] [facility] [address],[place] [address] 07/21/2020 11:02:28 07/21/2020 12:21:49 Routine care [id number] Z34.92 [id number] [facility] [address],[place] [address] 08/12/2020 12:15:27 08/12/2020 12:42:58 Urinary tract infectious disease 00526124 N39.0 [id number] [facility] [address],[place] [address] 08/18/2020 13:55:21 08/18/2020 15:22:57 Routine care [id number] Z34.92 [id number] [facility] [address],[place] [address] 08/18/2020 13:54:38 08/18/2020 15:05:57 screening for malformation [id number] Z36.3 [id number] [facility] [address],[place] [address] 09/22/2020 13:55:52 09/22/2020 15:22:24 Routine care [id number] Z34.92 [id number] Janessa Finley [facility] [address],[place] [address] 09/22/2020 13:54:28 09/22/2020 14:56:16 Excessive growth affecting management of mother 63148125 O36.62X0 Z3A.24 [id number] [facility] [address],[place] [address] 10/21/2020 13:40:04 10/21/2020 16:44:29 Routine care [id number] Z34.92 [id number] Marbin Marc MD [facility] [address],[place] [address] 11/01/2020 12:36:48 11/01/2020 13:17:16 Routine care [id number] Z34.91 Crohn's disease 55302963 K50.90 This patient is a 29-year-ol d female who presents forfollow- up onfirst trimesterI UP. She has Crohn's disease. She has [facility]ref[facility] ed [facility]. She has a 7-week 4-dayIUPto day. An ultrasound was performed. We reviewed those results.Liat coffey is doing well. She had a recent flare of her Crohn's. She is doing well now.We discussed various aspects of care. We discussed monitoring / testing.Liat coffey return in 5 weeks for initial OB. We talked about genetic screening. [id number] Shanita Negrete CNM [facility] [address],[place] [address] 11/21/2020 14:02:00 11/21/2020 16:40:13 Routine care [id number] Z34.93 [id number] Marbin Marc MD [facility] [address],[place] [address] 12/02/2020 10:49:04 12/02/2020 12:03:22 Routine care [id number] Z34.91 Hemorrhoids 80673060 K64 .9 [id number] Melodie Jenkins [facility] [address],[place] [address] 12/16/2020 09:47:06 12/16/2020 23:14:17 Routine care [id number] Z34.92 [id number] [facility] [address],[place] [address] 12/16/2020 09:47:41 12/16/2020 11:48:06 Maternal obesity complicating , childbirth and the puerperium, antepartum [id number] 07 O99.213 [id number] [facility] [address],[place] [address] 12/16/2020 09:49:49 12/16/2020 11:48:32 Pre-existing maternal disease complicating [id number] 6106 O99.891 [id number] [facility] [address],[place] [address] 12/19/2020 11:17:29 12/19/2020 13:08:12 Maternal obesity complicating , childbirth and the puerperium, antepartum [id number] 07 O99.213 [id number] [facility] [address],[place] [address] 12/19/2020 12:47:08 12/19/2020 14:07:49 Abnormal heart rate 458906474 O36.8330 Z3A.37 [id number] Fadumo Cruz [facility] [address],[place] [address] 12/23/2020 09:38:51 12/23/2020 10:40:59 Pre-existing maternal disease complicating [id number] 6106 O99.213 Z3A.38 [id number] [facility] [address],[place] [address] 12/23/2020 09:39:10 12/23/2020 12:22:11 Maternal obesity complicating , childbirth and the puerperium, antepartum [id number] 07 O99.213 [id number] Марина Morgan MD [facility] [address],[place] [address] 12/23/2020 09:39:23 12/23/2020 12:52:32 Routine care 398226400 Z34.83 [id number] [facility] [address],[place] [address] 12/29/2020 14:28:49 12/29/2020 15:50:41 Routine care [id number] Z34.92 [id number] [facility] [address],[place] [address] 12/29/2020 13:29:42 12/29/2020 14:28:54 Maternal obesity complicating , childbirth and the puerperium, antepartum 0932035234 07 O99.213 [id number] Gerriaugusto Gray [facility] [address],[place] [address] 12/29/2020 14:58:47 12/29/2020 16:29:49 Maternal obesity complicating , childbirth and the puerperium, antepartum 1693343016 07 O99.213 [id number] [facility] [address],[place] [address] 01/07/2021 11:52:57 01/07/2021 14:56:14 -induced hypertension 1259702971 9100 O13.9 PIH precaution s given. RTC for routine post visit. Pt desires tubal ligation. Discussed procedure risks and benefits. Will send to surgery scheduling . 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 Has only been taking 50mg and feels it works well for her. Female sterilization 608 80954 Z30.2 [id number] Marbin Marc MD [facility] [address],[place] [address] 01/19/2021 09:46:40 01/19/2021 10:50:08 Infection of uterus 136676811 N71.9 This patient is a 30-year-ol d female presents for follow-up on possible endometrit is. She had some unusual vaginal discharge. She is about 3 weeks . She had discharge with a foul odor. She has been treated with antibiotic s for the past 2 days. Exam was performed today. Speculum exam. The exam was normal. A culture was obtained from the cervical os. She denies any nausea, vomiting, fever, chills. We started clindamyci n on the previous day. Culture results may be affected. She was given precaution s. She will follow up in 5 days for routine follow-up. [id number] Melodie Coronadovicki [facility] [address],[place] [address] 01/26/2021 11:56:15 01/27/2021 19:45:23 state 61508802 Z39.2 Continue to watch for signs/symp toms of post depression . Return one year from last pap smear for a well woman exam. Desires tubal. Patient received above instructio ns, and questions have been answered. If you have any questions please call or respond to this email. Patient was made aware of the patient portal and may obtain a paper copy of today's plan if desired [id number] Marbin Marc MD [facility] [address],[place] [address] 02/10/2021 15:49:50 02/10/2021 17:06:15 Female sterilization 04069077 Z30.2 this patient is a 30-year-ol d female who desires female sterilizat ion. We have agreed to perform laparoscop ic bilateral salpingect natasha. She understand s the risks, benefits, and alternativ es. She has completed the informed consent process and is ready to proceed. [id number] Melodie Jenkins [facility] [address],[place] [address] 02/24/2021 14:20:01 02/24/2021 15:30:03 Contraception care management 939865738 Z30.9 Decided against tubal d/t chrons. Pt would like to start p.o.p. Discussed importance of taking at the same time every day. Also informed that it may not be as effective as estrogen containing pills. RTC in 3 months for wwe with med check. [id number] [facility] [address],[place] [address] 04/29/2021 10:35:14 04/30/2021 17:08:00 Pain of breast 11893771 N64.4 Due to descriptio n of pain being pins and needles will treat for yeast with a 2 week round of diflucan. If no resolution of symptoms will need to schedule imaging. Pt will return in 1-2 weeks for follow up. [id number] Marbin Marc MD [facility] [address],[place] [address] 06/04/2021 11:21:03 06/04/2021 17:42:14 [id number] Melodie Jenkins [facility] [address],[place] [address] 07/29/2022 09:30:44 07/29/2022 10:04:29 Vaginitis 30204476 N76.0 Discussed use of mild soap like dove or ivory, cotton underwear w/out dye, hypoallerg enic detergent, wipe from front to back, avoid tub baths, keep perineum clean and dry, d/c use of baby wipes. Encouraged daily intake of yogurt or womens health probiotic. Internal and external affirm collected along with STD culture per patient request. [id number] VANESSA Hinds [place] [address],[place] [address] 06/09/2023 09:14:02 06/09/2023 10:03:07 Gynecologic examination 16231944 Z01.419 WWEpap updateddec lined STI screeningr outine labs UTD/PCP Take Calcium with Vitamin D daily if not receiving in daily diet.It is strongly advised to have an annual flu shot and up can obtain at most pharmacies . If you have not had a TDap shot in the last 10 years you should obtain one as well. Discussed with patient & provided with informatio n regarding Gardisil vaccine to prevent the 4 strains for HPV that cause cervical cancer if under age 26.Encoura ge safe sexual practices, to use condoms and limit partners if not already in a monogamous relationsh ip.Do monthly self breast exams. Engage in daily exercise of low impact aerobic exercise 45-60 minutes 4-5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
--- OUTSIDE RECORDS SUMMARY | 2024-05-31 13:49 | XMS_ITS | Clinical Summary ---
Author Organization [facility] Address [address] [facility] [address] [place] [phone] Phone Care Team Providers Care Hydrator Name Role Phone Unavailable Primary Care Provider Unavailabl e Active Problems Problem Noted Date Diagnosed Date TATO (obstructive sleep apnea) 04/02/2022 Social History Tobacco Use Types Packs/Day Years Used Date Smoking Tobacco: Never Assessed Comments Unknown Sex and Gender Information Value Date Recorded Sex Assigned at Not on file Legal Sex Female 10:49 AM CDT Gender Identity Not on file Sexual Orientation Not on file Plan of Treatment Health Maintenance Due Date Last Done Comments PNEUMOCOCCAL VACCINE 0-64 YE ARS (1 of 2 - PCV) 08/12/1997 DTAP/TDAP/TD VACCINES (1 - Tdap) 08/12/2010 HEPATITIS B VACCINES (1 of 3 - 19+ 3-dose series) 08/12/2010 CERVICAL CANCER SCREENING 08/12/2021 INFLUENZA VACCINE (#1) 2023 HPV VACCINES Aged Out No longer eligi ble based on patient's age to complete this topic Insurance [facility] [id number] [address]
--- OUTSIDE RECORDS SUMMARY | 2024-05-31 13:49 | XMS_ITS | Encounter Summary ---
Author Organization [facility] Address [address] [place] [address] Care Team Providers Care Wrapper Leaf Inspector Name Role Phone Enoch Loyd MD Primary Care Provider Encounter Details Date Type Department Care Team (Late st Contact Info) Description 12/27/2023 Lab Requisition [facility] - DermPath Lab [address] [facility] [place] [phone] John Crenshaw MD [address] [place] [id number] Social History Tobacco Use Types Packs/Day Years Used Date Smoking Tobacco: Never Smokeless Tobacco: Never Alcohol Use Standard Drinks/Week Comments No 0 (1 standard drink = 0.6 oz pur e alcohol) Sex and Gender Information Value Date Recorded Sex Assigned at Not on file Gender Identity Not on file Sexual Orientation Not on file documented as of this encounter Plan of Treatment Not on file documented as of this encounter Procedures Procedure Name Priority Date/Time Associated Diagnosis Comments DERMATOPATHOLOGY Routine 12/26/2023 12:0 0 AM CDT documented in this encounter Results * DERMATOPATHOLOGY (12/26/2023 12:00 AM CDT) Case Report Dermatopathology Report Case: [id number] Authorizing Provider: John Crenshaw MD Collected: 12/26/2023 12:00 AM Ordering Location: [facility] - Received: 12/27/2023 04:36 PM DermPath Lab Pathologist: Fabian Prater MD Specimen: Skin, left upper medial arm 4:58 PM CDT DERMATOPATHOLOGY LABORATORY Final Diagnosis Specimen A. 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 The specimen consists of a shave biopsy measuring 3x2x1 mm. Jar 0. 4:58 PM CDT DERMATOPATHOLOGY LABORATORY Microscopic Description Specimen A. SKIN, left upper medial arm: This is a junctional nevus. There is melanin pigment in the stratum corneum. There is a lentiginous proliferation of melanocytes between nests of cells along the dermal-epidermal junction, highlighted by MART-1/Melan-A immunohistochemical staining. PRAME (preferentially expressed antigen of melanoma) shows 0+ staining of the melanocytes. There is underlying fibroplasia of the papillary dermis. Original and deeper sections were reviewed. (Junctional Henri's Nevus) Sections show abundant melanin within melanophages around the superficial vascular plexus. 4:58 PM CDT DERMATOPATHOLOGY LABORATORY Disclaimer An external and internal positive and negative controls are appropriate for the histochemical, immunohistochemical and immunofluorescence stain(s) in this case (if any), except where stated explicitly. The performance characteristics of the stain(s) cited in this report were developed and its performance characteristic determined by the Dermatopathology Laboratory at [facility], directed by Dr. Belle Prater. These tests need not be, and therefore are not, approved by the [place] Food and Drug Administration. The tests are used for clinical purposes. Billing Codes Specimen Charges Stain Charges 07652 1 28832 40576 1 1 4 4:58 PM CDT DERMATOPATHOLOGY LABORATORY Embedded Images 4 4:58 PM CDT DERMATOPATHOLOGY LABORATORY Pathology/Cytolog y TISSUE SPECIMEN FROM SKIN / Unknown 12/26/2023 12/27/2023 4:36 PM CDT John Crenshaw MD LAB - PATHOLOGY/CYTO LOGY ORDERABLES DERMATOPATHOLOGY LABORATORY [facility] - Department of Dermatology [facility] [address] [place] [address], [address] [phone] documented in this encounter Visit Diagnoses Not on filedocumented in this encounter Care Teams Wrapper Leaf Inspector Relationship Specialty [place] [address] [place] [phone] PCP - General Internal Medicine 02/28/13 documented as of this encounter
--- OUTSIDE RECORDS SUMMARY | 2024-05-31 13:49 | XMS_ITS | Patient Health Summary ---
Author Organization [facility] Address [address] [place] [address] Care Team Providers Care Flexographic Press Plate Setter Name Role Phone Enoch Loyd MD Primary Care Provider [phone] Note from [facility],non-owned Affiliates and Associated Physician Practices is amultiple site organization consisting of ambulatory clinics and hospital sitesin [place], [place], [place] and [place]. This disclosure is being madepursuant to the Care Everywhere program and may not contain all information available regarding this patient. Last updated 18.[facility] Allergies No known active allergies Medications * Be aware that medications may not be up to date on this document. Alwaysverify current medications with the patient. * Vit-Fe Fumarate-FA ( VITAMIN) 28-0.8 MG tablet Take 1 Tab by mouth once daily. * acetaminophen (TYLENOL) 325 MG tablet Take 650 mg by mouth every 6 hours as needed. Maximum allowable Acetaminophen amount = 4 Grams (4000 mg) / 24 hours. 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 Dyspnea, unspecified 11/24/2020 Supervision of high-risk of young lee igravida 02/20/2013 Resolved Problems Problem Noted Date Diagnosed Date Resolved Date Crohn disease 02/20/2013 03/30/2013 Immunizations * HEP A VACCINE, ADULT(Given 02/24/2009) Social History Tobacco Use Types Packs/Day Years Used Date Smoking Tobacco: Never Smokeless Tobacco: Never Alcohol Use Standard Drinks/Week Comments No 0 (1 standard drink = 0.6 oz pur e alcohol) Sex and Gender Information Value Date Recorded Sex Assigned at Not on file Gender Identity Not on file Sexual Orientation Not on file Last Filed Vital Signs Vital Sign Reading Time Taken Comments Blood Pressure 131/78 11/26/2020 11:12 AM CDT Pulse 96 11/26/2020 11:12 AM CDT Temperature - - Respiratory Rate 18 02/28/2013 12:45 PM GRINDER Oxygen Saturation - - Inhaled Oxygen Concentration - - Weight 96.2 kg (212 lb) 11/26/2020 11:12 AM CDT Height 170.2 cm (5' 7 ) 11/26/2020 11:12 AM CDT Body Mass Index 33.2 11/26/2020 11:12 AM CDT Procedures * DERMATOPATHOLOGY(Performed 12/26/2023) * SONOGRAM - COMPLETE(Performed 11/26/2020) Performed for Crohn's disease with complication, unspecified gastrointestinal tract location (HCC),Fifth (HCC) Results * DERMATOPATHOLOGY (12/26/2023 12:00 AM CDT) Case Report Dermatopathology Report Case: [id number] Authorizing Provider: John Crenshaw MD Collected: 12/26/2023 12:00 AM Ordering Location: [facility] - Received: 12/27/2023 04:36 PM DermPath Lab Pathologist: Fabian Prater MD Specimen: Skin, left upper medial arm 4 4:58 PM CDT DERMATOPATHOLOGY LABORATORY Final Diagnosis Specimen A. SKIN, left upper medial arm: LENTIGINOUS MELANOCYTIC NEVUS, JUNCTIONAL TYPE, IRRITATED (D22.62) POST-INFLAMMATORY PIGMENT ALTERATION (L81.9) 4 4:58 PM CDT DERMATOPATHOLOGY LABORATORY Clinical History Hemorrhage vs nevus r/o atypia vs other 4 4:58 PM CDT DERMATOPATHOLOGY LABORATORY Gross Description Specimen A: Received is one formalin filled container labeled with the patient's name and designated left upper medial arm. The specimen consists of a shave biopsy measuring 3x2x1 mm. Jar 0. 4 4:58 PM CDT DERMATOPATHOLOGY LABORATORY Microscopic Description [...] within melanophages around the superficial vascular plexus. 4 4:58 PM CDT DERMATOPATHOLOGY LABORATORY Disclaimer An external and internal positive and negative controls are appropriate for the histochemical, immunohistochemical and immunofluorescence stain(s) in this case (if any), except where stated explicitly. The performance characteristics of the stain(s) cited in this report were developed and its performance characteristic determined by the Dermatopathology Laboratory at [facility], directed by Dr. Belle Prater. These tests need not be, and therefore are not, approved by the [place] Food and Drug Administration. The tests are used for clinical purposes. Billing Codes Specimen Charges Stain Charges 80746 1 [id number] 58048 1 1 4 4:58 PM CDT DERMATOPATHOLOGY LABORATORY Embedded Images 4 4:58 PM CDT DERMATOPATHOLOGY LABORATORY Pathology/Cytolog y TISSUE SPECIMEN FROM SKIN / Unknown 12/26/2023 12/27/2023 4:36 PM CDT John Crenshaw MD LAB - PATHOLOGY/CYTO LOGY ORDERABLES DERMATOPATHOLOGY LABORATORY [facility] Department of Dermatology [facility] [address] [place] [address], [address] [place] [address], [facility] [phone] * SONOGRAM - COMPLETE (11/26/2020 10:18 AM CDT) Anatomical Region Laterality Modality Other 11/26/2020 10:1 8 AM CDT Narrative 11/26/2020 12:49 PM CDT [facility] PHONE: FAX: Pat. Name: BRITTANY MCKINNEY Pat. No: [id number] Study Date: 11/26/2020 10:18am , Age: 04 1990, 30 Pregnancies: 5, Para 2 Height: 63 in Weight: 206 lb LMP: Unknown GA by US: 35w5d SYLVESTER: 12/26/2020 GA Selected: 34w1d (From Known E) SYLVESTER: 01/06/2021 Referring MD: Marbin Marc MD Storeroom Keeper: Andreina Irving RDMS CPT4: 38760 BMI: 36.49 Hist/Ind: Crohn's Disease Class II Obesity (BMI 36) MEASUREMENTS & AGE GROWTH EVALUATION Measurement GA Range Srce %for GA Ratios ----- ---- ------- BPD 8.9 cm 36w0d (84w1a-44k1b) Hadl BPD 91% FL/BPD 0.74 (0.71 - 0.87) HC 32.9 cm 37w3d (37k6h-69t2m) Hadl HC 90% FL/AC 0.21 (0.20 - 0.24) AC 31.8 cm 35w5d (42c0x-88r5z) Hadl AC 90% HC/AC 1.04 (0.94 - 1.13) FL 6.6 cm 33w6d (34f2l-80o1l) Hadl FL 32% CI 0.76 (0.70 - 0.86) HL 5.9 cm 34w0d (52l1g-19y0e) Anmol HL 47% Cere 5.2 cm 37w3d (83o6v-74d5z) Brandon Cere>95 GA for sonogram 35w5d (44i2s-64a7e) Weight Estimate: based on (HL,BPD,HC,AC,FL,Cere) Avg Weight: 2674 gm (2283-3064gm) Had : 5lbs, 14oz Normal: 2408 gm (1806-3010gm) Had Wt% 80% for 34w1d Heart Rate: 164 bpm Amniotic Fluid Index: 17.1cm (08.1-24.8) Q1: 6.3cm Q2: 1.1cm Q3: 3.3cm Q4: 6.3cm EVAL, PLACENTA Presentation: cephalic Umbilical Cord: 3 Vessels Placenta: anterior Previa: suboptimal Heart Rate: 164 bpm Amniotic Fluid Volume: normal MATERNAL ANATOMY Right Desc: Suboptimal Left Desc: Suboptimal Anatomy!Normal!Abnormal!Suboptimal!Prev. Seen!Comments Cranium ! x ! ! ! ! Mdl (CSP/Thal! x ! ! ! ! Ventricles ! x ! ! ! ! Choroid Plexu! x ! ! ! ! Cerebellum ! x ! ! ! ! Cerebellar Ve! x ! ! ! ! Cisterna M. ! ! x ! ! !measures 11 mm Orbits ! x ! ! ! ! Profile ! ! ! x ! ! Nasal Bone ! ! ! x ! ! Lip ! x ! ! ! ! Maxilla ! ! ! x ! ! Mandible ! ! ! x ! ! Neck ! x ! ! ! ! Spine ! x ! ! ! ! Lungs ! ! ! x ! ! 4 Chamber Hea! ! ! x ! ! LVOT ! x ! ! ! ! RVOT ! x ! ! ! ! 3 Vessel View! ! ! x ! ! 3 Vessel Trac! ! ! x ! ! Cross-over ! x ! ! ! ! Ductal Arch ! ! ! x ! ! Aortic Arch ! ! ! x ! ! Caval View ! ! ! x ! ! Situs ! x ! ! ! ! Diaphragm ! x ! ! ! ! Stomach ! x ! ! ! ! Liver ! x ! ! ! ! Bowel ! x ! ! ! ! Kidneys ! x ! ! ! ! Bladder ! x ! ! ! ! 3 Vessel Cord! ! ! x ! ! Cord In! ! ! x ! ! Upper Extremi! ! ! x ! ! Hands ! ! ! x ! ! Lower Extremi! ! ! x ! ! Feet ! ! ! x ! ! External Daphne! ! ! ! !Male appearing Placental Cor! ! ! x ! ! CLINICAL SUMMARY REVISION Study Number: 1 A single fetus is seen in cephalic presentation. The measurements today are consistent with appropriate size for the SYLVESTER provided. The SYLVESTER is based on a prior ultrasound examination (confirmed). The amniotic fluid volume is within normal limits. The cisterna magna was borderline enlarged today. This space may not be accurately measured due to limitations from advanced gestational age. The cerebellum and vermis appear unremarkable within the limitations of today's exam. No other abnormalities were suspected within the limitations of today's exam. IMPRESSION: Single, live, intrauterine at 34w1d size is consistent with established SYLVESTER Amniotic fluid volume: within normal limits Cisterna magna was borderline enlarged No EIF was observed No other abnormalities were suspected within the limitations of today's exam ultrasound is limited in the ability to detect or exclude small, cardiac septal defects. RECOMMEND: Reevaluate growth in 4 weeks--may be performed with referring OB brain MRI to evaluate posterior fossa--brain ultrasound may have false negative result Thank you for allowing us the opportunity to care for your patient. Serena Cash MD <Electronic Signature> 11/26/2020 12:47pm R Flip NIETO ORDERABLES Care Teams Flexographic Press Plate Setter Relationship Specialty Start Date End Date Enoch Loyd MD [address] [facility] [address] [place] [phone] PCP - General Internal Medicine 02/28/13
--- OUTSIDE RECORDS SUMMARY | 2024-05-31 13:49 | XMS_ITS | Encounter Summary ---
Author Organization [facility] Address [address] [place] [address] Care Team Providers Care Process Coordinator Name Role Phone Enoch Loyd MD Primary Care Provider [phone] Encounter Details Date Type Department Care Team (Late st Contact Info) Description 03/30/2013 Telephone [facility] Maternal & Care [address] [place] [phone] Andreina Irving, [facility] [place] [address] [place] [address] Social History Tobacco Use Types Packs/Day Years Used Date Smoking Tobacco: Never Smokeless Tobacco: Never Alcohol Use Standard Drinks/Week Comments No 0 (1 standard drink = 0.6 oz pur e alcohol) Comments Yes Sex and Gender Information Value Date Recorded Sex Assigned at Not on file Gender Identity Not on file Sexual Orientation Not on file documented as of this encounter Plan of Treatment Not on file documented as of this encounter Visit Diagnoses Not on filedocumented in this encounter Care Teams Process Coordinator Relationship Specialty Start Date End Date Enoch Loyd MD [address] [facility] [address] [place] [phone] PCP - General Internal Medicine 02/28/13 documented as of this encounter
--- OUTSIDE RECORDS SUMMARY | 2024-05-31 13:49 | XMS_ITS | Referral Summary ---
Author Organization [facility] Address [address] [place] [address] Care Team Providers Care Client Services Account Manager Name Role Phone Enoch Loyd MD Primary Care Provider [phone] Source Comments [facility],non-owned Affiliates and Associated Physician Practices is amultiple site organization consisting of ambulatory clinics and hospital sitesin [place], [place], [place] and [place]. This disclosure is being madepursuant to the Care Everywhere program and may not contain all information available regarding this patient. Last updated 18.[facility] Allergies No known active allergies Medications * Be aware that medications may not be up to date on this document. Alwaysverify current medications with the patient. Medication Sig Dispensed Refills Start Date End Date Status Vit-Fe Fumarate-FA ( VITAMIN) 28-0.8 MG tablet Take 1 Tab by mouth once daily. Active acetaminophen (TYLENOL) 325 MG tabletIndications:P ain Take 650 mg by mouth every 6 hours as needed. Maximum allowable Acetaminophen amount = 4 Grams (4000 mg) / 24 hours. Indications: Pain Active sertraline (ZOLOFT) 100 MG tablet Take 100 mg by mouth once daily Active Active Problems Patient Care Coordination No te Formatting of this note migh t be different from the original. Co-Managed with Dr Mahmood as indicated Problem Noted Date Diagnosed Date Crohn's disease of colon with complication 11/26 Overview (11/26/2020): Has a GI specialist. Last flare was 07/2019. Was not on medications at the start of the . Assessment & Plan (11/26/2020 12:42 PM CDT): Controlled without medication. does not appear to be associated with an increased risk for exacerbation. In general, women in remission at conception are likely to remain so. About a third of women have relapses (which is not different for the non female population). On the other hand, women with active disease at onset, have greater risks of relapses and are therefore counseled to delay until disease quiescence is achieved. The rate of flares does not appear to be increased. complications associated with both ulcerative colitis and Crohn's disease are low weight due to delivery and growth restriction. However, the literature contains conflicting reports and it appears that these complications are affected by disease severity, relapses and possibly medication. It also appears that, particularly for Crohn's, the risk of adverse outcome is greater among women with active disease at the time of onset. Regardless, serial sonograms for growth and are indicated and antepartum surveillance is considered, depending on course or the presence of co-morbidities. 1. Monitor for iron deficiency anemia due to history of colon resection 2. Reassess growth in 4 weeks--to be performed by referring OB 3. Consider weekly BPP/NST-- be performed by referring OB History of hemorrhage 11/26/2020 Assessment & Plan (11/26/2020 12:22 PM CDT): At risk for recurrent hemorrhage. 1. 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 Due to late gestational age it is unlikely that future assessment will give a more accurate measurement. Most fetuses with this diagnosis are found to be normal after ; however, reevaluation is recommended. This finding can be associated with trisomy 18 but Agnieszka had aneuploidy screening with cell free DNA which makes the likelihood of Down or Martin syndromes very low. 1. No change in timing, mode or location of delivery warranted 2. No indication for delivery prior to 39 weeks 3. brain MRI to evaluate posterior fossa-may be performed in the hospital after delivery 1. brain ultrasound may have false negative result 2. IF abnormal Director Of Special Education to refer to Pediatric Neurology [Consider [facility] IF needed] 1. IF the referring OB has concerns that this plan cannot be performed without a referral to the [facility] please let us know and we will refer Agnieszka. Depression during , antepartum 11/27/19 Assessment & Plan (11/26/2020 12:47 PM CDT): Mood appropriate today. Sertraline [Zoloft]: U.S[place] FDA category not assigned. Animal studies have failed to show evidence of teratogenicity; however, there has been evidence of delayed ossification. There may be potential for drug discontinuation syndrome in the . Some experts suggest that newborns be observed for the first 48 hours of life after , if there has been exposure late in the 3rd trimester. SSRIs, in general, may increase the risk of persistent pulmonary hypertension of the . This drug is considered one of the preferred antidepressants during breast- feeding. 1. Agnieszka was instructed to notify her Director Of Special Education of the use of this medication 1. 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 Dyspnea, unspecified 11/24/2020 Overview (11/26/2020): 06/18/20: 24 hr holter monitor: Sinus rhythm HR range 48-146; average HR 81 bpm. 2 premature supraventricular complexes. No SVT. [facility] Cardiology consult note is in care everywhere. Maternal echo scheduled. Supervision of high-risk of owen howard anthony 02/20/2013 Overview (11/24/2020): Consult LMP: 03/18/2020- EDC 12/23/20 Dating scan: 05/14/20 @ 6w1d- SYLVESTER by US 01/06/21 (06/23/20) PNL: O+, Negative, Immune, Rpr-NR, HIV-NR, Hbsag-NR, Hcv Rna-Neg NIPT-Negative Resolved Problems Problem Noted Date Diagnosed Date Resolved Date Crohn disease 02/20/2013 03/30/2013 Overview (02/20/2013): On Teresa, has been in remission since 2007 Immunizations Name Administration Dates Next Due HEP A VACCINE, ADULT 02/24/2009 Social History Tobacco Use Types Packs/Day Years [...] - Respiratory Rate 18 02/28/2013 12:45 PM FEDERAL APPELLATE CLERK Oxygen Saturation - - Inhaled Oxygen Concentration - - Weight 96.2 kg (212 lb) 11/26/2020 11:12 AM CDT Height 170.2 cm (5' 7 ) 11/26/2020 11:12 AM CDT Body Mass Index 33.2 11/26/2020 11:12 AM CDT Plan of Treatment Not on file Care Teams Client Services Account Manager Relationship Specialty Start Date End Date Enoch Loyd MD [address] [phone] PCP - General Internal Medicine 02/28/13
--- OUTSIDE RECORDS SUMMARY | 2024-05-31 13:49 | XMS_ITS | Clinical Summary ---
Author Organization [facility] Address [address] [place] [address] Care Team Providers Care Canvas Worker Name Role Phone Enoch Loyd MD Primary Care Provider [phone] Source Comments [facility],non-owned Affiliates and Associated Physician Practices is amultiple site organization consisting of ambulatory clinics and hospital sitesin [place], [place], [place] and [place]. This disclosure is being madepursuant to the Care Everywhere program and may not contain all information available regarding this patient. Last updated 18.[facility] Allergies No known active allergies Medications * [...] have false negative result 2. IF abnormal Bank Clerk to refer to Pediatric Neurology [Consider [facility] IF needed] 1. IF the referring OB has concerns that this plan cannot be performed without a referral to the [facility] please let us know and we [...] 1. Agnieszka was instructed to notify her Bank Clerk of the use of this medication 1. 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 Dyspnea, unspecified 11/24/2020 Overview (11/26/2020): 06/18/20: 24 hr holter monitor: Sinus rhythm HR range 48-146; average HR 81 bpm. 2 premature supraventricular complexes. No SVT. [facility] Cardiology consult note is in care everywhere. 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 Oxygen Saturation - - Inhaled Oxygen Concentration - - Weight 96.2 kg (212 lb) 11/26/2020 11:12 AM CDT Height 170.2 cm (5' 7 ) 11/26/2020 11:12 AM CDT Body Mass Index 33.2 11/26/2020 11:12 AM CDT Plan of Treatment Health Maintenance Due Date Last Done Comments PAP SMEAR 1990 HIV SCREENING 08/12/2006 HEPATITIS C SCREENING 08/08/2009 DTAP/TDAP/TD VACCINES (1 - Tdap) 08/12/2010 HEPATITIS B VACCINE (1 of 3 - 19+ 3-dose series) 08/12/2010 PNEUMOCOCCAL VACCINE (1 of 2 - PCV) 08/12/2010 COVID-19 VACCINE (1 - 2023-2 5 season) 2023 INFLUENZA VACCINE (#1) 2023 DEPRESSION SCREENING 04/18/2024 ZOSTER VACCINE (1 of 2) 08/12/2041 HIB VACCINE Aged Out No longer eligi ble based on patient's age to complete this topic HPV VACCINE Aged Out No longer eligi ble based on patient's age to complete this topic MENINGOCOCCAL (Group B) VACCINE Aged Out No longer eligible based on patient's age to complete this topic MENINGOCOCCAL VACCINE Aged Out No william анна eligible based on patient's age to complete this topic Care Teams Canvas Worker Relationship Specialty Start Date End Date Enoch Loyd MD [address] [facility] [address] [place] [phone] PCP - General Internal Medicine 02/28/13
== END 2024-05-31 13:45 | disposition home or self-care (01) ==
LOC: ANHLAB 13:46
PROVIDERS: Visit Provider Surgery Plastic and Reconstructive Surgery
DX: S21.002A Unspecified open wound of left breast, initial encounter (principal); X58.XXXA Exposure to other specified factors, initial encounter
CPT/HCPCS: 87070; 87075; 87077; 87147; 87181; 87186; 87205

== ENCOUNTER 2024-06-08 06:56 | Outpatient (CLI) | payer OTHER, SELFPAY ==
--- NOTE | ~2024-06-08 | CT_ITS ---
Clinical Indication: Pulmonary embolus CT Scan of the Chest with Contrast: Technique: Contiguous sections were acquired throughout the chest after intravenous administration of 100 cc of Omnipaque 350. Dose reduction technique was used on this scan by utilizing automated expos ure control and iterative reconstruction technique. The dose-length product (DLP) was 562.18 mGy-cm. COMPARISON: 02/11/2024 Findings: There is no evidence of any significant mediastinal, hilar or axillary lymphadenopathy. There is no f illing defect in the pulmonary arterial tree to suggest pulmonary embolus. There is no evidence of ao rtic dissection or aneurysm. There is no evidence of pleural or pericardial effusion. The lungs are clear. No pulmonary nodules or infiltrates are noted. Images through the upper abdomen reveal no abnormalities. Impression: No evidence of pulmonary embolus, aortic dissection, or aortic aneurysm. Clear lungs. Reviewed, dictated and finalized at [facility]. [employer] WORKER Impression: No evidence of pulmonary embolus, aortic dissection, or aortic aneurysm. Clear lungs.
--- OUTSIDE RECORDS SUMMARY | 2024-06-08 07:00 | XMS_ITS | Clinical Summary ---
Author Organization [facility] Address [address] [facility] [address] [place] [phone] Phone Care Team Providers Care Core Driller Name Role Phone Unavailable Primary Care Provider [...] patient's age to complete this topic Insurance [facility] [id number] [address] [place]
--- OUTSIDE RECORDS SUMMARY | 2024-06-08 07:00 | XMS_ITS | Patient Health Summary ---
Author Organization [facility] Address [address] [facility] [place] [address] Care Team Providers Care Refrigeration Lead Name Role Phone Enoch Loyd MD Primary Care Provider [phone] Note from [facility],non-owned Affiliates and Associated Physician Practices is amultiple site organization consisting of ambulatory clinics and hospital sitesin [place], [place] and [place]. This disclosure is being madepursuant to the Care Everywhere program and may not contain all information available regarding this patient. 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 Belle Prater. These tests need not be, and therefore are not, approved by the [place] Food and Drug Administration. The tests are used for clinical purposes. Billing Codes Specimen Charges Stain Charges 44002 1 76730 73640 1 1 4 4:58 PM CDT DERMATOPATHOLOGY LABORATORY Embedded Images 4 4:58 PM CDT DERMATOPATHOLOGY LABORATORY Pathology/Cytolog y TISSUE SPECIMEN FROM SKIN / Unknown 12/26/2023 12/27/2023 4:36 PM CDT John Crenshaw MD LAB - PATHOLOGY/CYTO LOGY ORDERABLES [facility]Y [facility] Department [facility] Dermatology [facility] Medicine [address] [place] [address], [address] [place] [address], [facility] [phone] * SONOGRAM - COMPLETE (11/26/2020 10:18 AM CDT) Anatomical Region Laterality Modality Other 11/26/2020 10:1 8 AM CDT Narrative 11/26/2020 12:[address] [facility] PHONE: FAX: Pat. Name: BRITTANY MCKINNEY Pat. No: [id number] Study Date: 11/26/2020 10:18am , Age: 04 1990, 30 Pregnancies: 5, Para 2 Height: 63 in Weight: 206 lb LMP: Unknown GA by US: 35w5d SYLVESTER: 12/26/2020 GA Selected: 34w1d (From Known E) SYLVESTER: 01/06/2021 Referring MD: Marbin Marc MD Straw Hat Machine Operator: Andreina Irving RDMS CPT4: 59111 BMI: 36.49 Hist/Ind: Crohn's Disease Class II Obesity (BMI 36) MEASUREMENTS & AGE GROWTH EVALUATION Measurement GA Range Srce %for GA Ratios ----- ---- ------- BPD 8.9 cm 36w0d (47m0d-82q5i) Hadl BPD 91% FL/BPD 0.74 (0.71 - 0.87) HC 32.9 cm 37w3d (48v0h-85m7z) Hadl HC 90% FL/AC 0.21 (0.20 - 0.24) AC 31.8 cm 35w5d (04p5q-77f7i) Hadl AC 90% HC/AC 1.04 (0.94 - 1.13) FL 6.6 cm 33w6d (58r2n-43a9g) Hadl FL 32% CI 0.76 (0.70 - 0.86) HL 5.9 cm 34w0d (52a7j-90b2k) Anmol HL 47% Cere 5.2 cm 37w3d (70t5f-72x9z) Brandon Cere>95 GA for sonogram 35w5d (37a6c-75u8z) Weight Estimate: based on (HL,BPD,HC,AC,FL,Cere) Avg Weight: [...] 12:47pm R Flip NIETO ORDERABLES Care Teams Refrigeration Lead Relationship Specialty Start Date End Date Enoch Loyd MD [address] [facility] [address] [place] [address] PCP - General Internal Medicine 02/28/13
--- OUTSIDE RECORDS SUMMARY | 2024-06-08 07:00 | XMS_ITS | Encounter Summary ---
Author Organization [facility] Address [address] [place] [address] Care Team Providers Care Processing Specialist Name Role Phone Enoch Loyd MD Primary Care Provider Encounter Details Date Type Department Care Team (Late st Contact Info) Description 12/27/2023 Lab Requisition [facility] - DermPath Lab [address] [facility] [facility] [address] [facility] [place] [phone] John Crenshaw MD [address] [place] [id number] Social History Tobacco Use Types Packs/Day Years [...] AM CDT) Case Report Dermatopathology Report Case: [id number] Authorizing Provider: John Crenshaw MD Collected: 12/26/2023 12:00 AM Ordering Location: [facility] - Received: 12/27/2023 04:36 [...] characteristic determined by the Dermatopathology Laboratory at [facility], directed by Dr. Belle Prater. These tests need not be, and therefore are not, approved by the [place] Food and Drug Administration. The tests are used for clinical purposes. Billing Codes Specimen Charges Stain Charges 97306 1 52790 95053 1 1 4 4:58 PM CDT DERMATOPATHOLOGY LABORATORY Embedded Images 4 4:58 PM CDT DERMATOPATHOLOGY LABORATORY Pathology/Cytolog y TISSUE SPECIMEN FROM SKIN / Unknown 12/26/2023 12/27/2023 4:36 PM CDT John Crenshaw MD LAB - PATHOLOGY/CYTO LOGY ORDERABLES DERMATOPATHOLOGY LABORATORY [facility] - Department of Dermatology [facility] Medicine [address] [place] [address], [address] [phone] documented in this encounter Visit Diagnoses Not on filedocumented in this encounter Care Teams Processing Specialist Relationship Specialty [place] [address] [place] [phone] PCP - General Internal Medicine 02/28/13 documented as of this encounter
--- OUTSIDE RECORDS SUMMARY | 2024-06-08 07:00 | XMS_ITS | Clinical Summary ---
Author Organization [facility] Address [address] [address] Care Team Providers Care Hardware Supplies Sales Representative Name Role Phone Enoch Loyd MD Primary Care Provider [phone] Source Comments [facility],non-owned Affiliates and Associated Physician Practices is amultiple site organization consisting of ambulatory clinics and hospital sitesin [place], [place], [place] and [place]. This disclosure is being madepursuant to the Care Everywhere program and may not contain all information available regarding this patient. Last updated 18.[facility] Allergies No known active allergies Medications * [...] have false negative result 2. IF abnormal Expeditionary Fighting Vehicle Crewman to refer to Pediatric Neurology [Consider [facility] IF needed] 1. IF the referring OB has concerns that this plan cannot be performed without a referral to the [facility] please let us know and we [...] 1. Agnieszka was instructed to notify her Expeditionary Fighting Vehicle Crewman of the use of this medication 1. 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 Dyspnea, unspecified 11/24/2020 Overview (11/26/2020): 06/18/20: 24 hr holter monitor: Sinus rhythm HR range 48-146; average HR 81 bpm. 2 premature supraventricular complexes. No SVT. [facility] Cardiology consult note is in care [...] - Respiratory Rate 18 02/28/2013 12:45 PM SAFETY INTERN Oxygen Saturation - - Inhaled Oxygen Concentration [...] age to complete this topic Care Teams Hardware Supplies Sales Representative Relationship Specialty Start Date End Date Enoch Loyd MD [address] [facility] [address] [place] [address] PCP - General Internal Medicine 02/28/13
--- OUTSIDE RECORDS SUMMARY | 2024-06-08 07:00 | XMS_ITS | Referral Summary ---
Author Organization [facility] Address [address] [facility] [place] [address] Care Team Providers Care Roofer Metal Name Role Phone Enoch Loyd MD Primary Care Provider [phone] Source Comments [facility],non-owned Affiliates and Associated Physician Practices is amultiple site organization consisting of ambulatory clinics and hospital sitesin [place], [place] and [place]. This disclosure is being madepursuant to the Care Everywhere program and may not contain all information available regarding this patient. Last updated 18.[facility] Allergies No known active allergies Medications [...] have false negative result 2. IF abnormal Acoustical Engineer to refer to Pediatric Neurology [Consider [facility] [...] 1. Agnieszka was instructed to notify her Acoustical Engineer of the use of this medication 1. 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 Dyspnea, unspecified 11/24/2020 Overview (11/26/2020): 06/18/20: 24 hr holter monitor: Sinus rhythm HR range 48-146; average HR 81 bpm. 2 premature supraventricular complexes. No SVT. [facility] Cardiology consult note is in care [...] - Respiratory Rate 18 02/28/2013 12:45 PM SUPERVISOR SANDING Oxygen Saturation - - Inhaled Oxygen Concentration - - Weight 96.2 kg (212 lb) 11/26/2020 11:12 AM CDT Height 170.2 cm (5' 7 ) 11/26/2020 11:12 AM CDT Body Mass Index 33.2 11/26/2020 11:12 AM CDT Plan of Treatment Not on file Care Teams Roofer Metal Relationship Specialty Start Date End Date Enoch Loyd MD [address] [phone] PCP - General Internal Medicine 02/28/13
--- OUTSIDE RECORDS SUMMARY | 2024-06-08 07:00 | XMS_ITS | Data Portability ---
Author Organization [facility] Address [address] [place] [address] Care Team Providers Care Business Risk Analyst Name Role Phone SERGIO SCHMID Primary Care Provider Assessment Encounter Date Assessment Date Assessment LastModified by Organization Details LastModified Time 06/04/2021 06/04/2021 Annual gynecological exam performed. Patient will come back in a year unless there are new symptoms. [email or web address] Not available 05/22/2021 16:29:38 06/09/2023 06/09/2023 Annual gynecological exam performed. Patient will come back in a year unless there are new symptoms. Not available 06/09/2023 09:16:50 Plan of Treatment Reminders Order Date Submit Date Provider Last Modified By Organization Details Last Modified Time Details Appointments None recorded. Lab test, urine 2023 [facility], [address], [place], [address], 4 09:45:37 TSH, serum or plasma 2023 [facility] (Lab), [address], [place], [address], 4 01:19:47 prolactin, serum 2023 024 [facility] (Lab), [address], [place], [address], 4 01:19:46 FSH (follicle-s timulating hormone), serum 2023 024 [facility] (Lab), [address], [place], [address], 4 01:19:47 estradiol, serum 2023 024 [facility] (Lab), [address], [place], [address], 4 01:19:45 testosteron e free/testos terone total, ratio, serum 2023 024 [facility] (Lab), [address], [place], [address], 4 01:19:48 lh (luteinizin g hormone), serum 2023 024 [facility] (Lab), [address], [place], [address], 4 01:19:46 HbA1c (hemoglobin A1c), blood 2023 024 [facility] (Lab), [address] [place], [address], 4 01:19:47 Referral None recorded. Procedures None recorded. Surgeries None recorded. Imaging None recorded. Medication Orders Slynd 4 mg (28) tablet 2023 024 [id number], [address], [place], [address], 4 11:00:57 Diflucan 100 mg tablet 2021 022 [id number], [address], [place], [id number], 3 09:41:09 Patient TargetsNo targets recorded. Patient [...] or kits canno t be used [facility] . Femal e Estra diol Range s: Folli cular phase 12.4- 233 pg/mL Ovula tion phase 41.0- 398 pg/mL Lutea l phase 22.3- 341 pg/mL Postm enopa usal< 5-138 pg/mL Healt hy Pregn ant Women 1st Trime ster1 54-32 43 pg/mL 2nd Trime ster1 561-2 1280 pg/mL 3rd Trime ster8 525-> 29548 pg/mL Not Available [facility] (Lab) [address], [place], [address], 06/14/2023 01:19:45 06/09/19 24 06/09/2023 PROLA CTIN prolactin, total 15.30 NG/mL 4.79-2 3.30 This assay was perfo rmed using [employer] ratio n reage nts and test kits. Value s obtai kaelyn with other assay metho ds or kits canno t be used [facility] . Not Available [facility] (Lab) [address], [place], [address], 06/14/2023 01:19:46 06/09/19 24 06/09/2023 LH (LUTE NIZIN G HORMO NE) LH 16.2 mIU/m L This assay was perfo rmed using [employer] ratio n reage nts and test kits. Value s obtai kaelyn with other assay metho ds or kits canno t be used [facility] . Femal es Mid-F ollic ular: 2.4-1 2.6 mIU/m L Mid-C ycle: 14.0- 95.6 mIU/m L Mid-L uteal : 1.0-1 1.4 mIU/m L Postm enopa use: 7.7-5 8.5 mIU/m L Not Available [facility] (Lab) [address], [place], [address], 06/14/2023 01:19:46 06/09/19 24 06/09/2023 FSH FSH [...] use: 25.8- 134.8 mIU/m L Not Available [facility] (Lab) [address], [place], [address], 06/14/2023 01:19:47 06/09/19 24 06/09/2023 TSH, REFLE X FREE T4 TSH 2.70 uIU/m L 0.30-5 .33 Not Available [facility] (Lab) [address], [place], [address], 06/14/2023 01:19:47 06/09/19 24 06/09/2023 HEMOG LOBIN [...] >8.0% Actio n sugge sted Not Available [facility] (Lab) [address], [place], [address], 06/14/2023 01:19:47 06/09/19 24 06/09/2023 TESTO STERO NE, FREE( DIALY SIS) AND TOTAL (LC/M S/MS) testosterone , total 192 NG/dL 2-45 high For addit ional [facility] pinto e refer to http: //[facility] yocasta moses.que stdia gnost ics.c om/fa q/ Total Testo stero neLCM SMSFA Q165 (This link is being provi ded for infor [facility]/ educa shlomo l purpo ses only. ) This test was devel oped and its stevenson tical perfo rmanc e gina cteri stics have been deter mined by [employer] ostic s [place], [place]. It has not been clear ed or appro ty by the U.S. Food and Drug Admin istra tion. This assay has been valid ated pursu ant to the CLIA regul ation s and is used for clini maricel purpo ses. Not Available [facility] (Lab) [address], [place], [address], 06/14/2023 01:19:48 06/09/19 24 06/09/2023 TESTO STERO NE, FREE( DIALY SIS) AND TOTAL (LC/M S/MS) testosterone , free 23.0 pg/mL 0.1-6. 4 high This test was devel oped and its stevenson tical perfo rmanc e gina cteri stics have been deter mined by [employer] [place], [place]. It has not been clear ed or appro ty by the U.S. Food and Drug Admin istra tion. This assay has been valid ated pursu ant to the CLIA regul ation s and is used for clini maricel purpo ses. Perfo rming Organ izati on [facility] n: Site ID: AMD Name: [employer] ostjohanne s Tejinder ls [facility] Addre ss: [id number] [place], [place] Direc tor: Robbin Bosch MD PhD Not Available [facility] (Lab) [address], [place], [address], 06/14/2023 01:19:48 06/09/1906/09/2023 pregn naun test, urine HCG negati ve Not Available [place] [address], [place], [address], 06/09/2023 09:42:24 Result Notes None recorded. Problems Name Problem SNOMED Code Status Onset Date Resolution Date Notes Provider Name and Address Organization Details Recorded Time Crohn's disease 37994207 Completed 201909/08/2021 Bridget Cruz [facility] 17:34:30 Syphilis test finding [id number] Completed 201405/14/2020 Encntr screen for infectio ns w sexl mode of transmis s;Practi ce ID: 0001 Patricia Thomas [facility] 18:43:37 Secondar y amenorrh ea [id number] Completed 201405/14/2020 Secondar y amenorrh ea;Pract ice ID: 0001 Patricia Thomas [facility], [facility] 18:43:22 Pregnanc y detectio n examinat ion Completed 201405/14/2020 Encounte r for pregnanc y test, result positive ;Practic e ID: 0001 Patricia Thomas [facility] 18:43:00 Generali zed abdomina l tenderne ss [id number] Completed 201405/14/2020 Generali zed abdomina l tenderne ss;Pract ice ID: 0001 Patricia Thomas [facility] 18:42:06 Abdomina l pain [id number] Completed 201405/14/2020 Unspecif ied abdomina l pain;Pra ctice ID: 0001 Patricia waller, [facility] 18:41:06 Gestatio n period, 9 weeks [id number] Completed 201405/14/2020 9 weeks gestatio n of pregnanc y;Practi ce ID: 0001 Patricia Martha waller, [facility] 18:42:42 Normal pregnanc y in multigra camille [id number] 88099 Completed 201505/14/2020 Encounte r for suprvsn of normal pregnanc y, first trimeste r;Practi ce ID: 0001 Patricia waller, [facility] 18:42:55 Pregnanc y, childbir th and puerperi um finding Completed 201505/14/2020 Oth pregnanc y related conditio ns, third trimeste r;Practi ce ID: 0001 Patricia waller, [facility] 18:41:24 Gestatio n period, 24 weeks [id number] Completed 201505/14/2020 24 weeks gestatio n of pregnanc y;Practi ce ID: 0001 Patricia waller, [facility] 18:42:13 False labor before 37 complete d weeks of gestatio n [id number] 7583553 Completed 201505/14/2020 False labor before 37 complete d weeks of gest, second tri;Prac navi ID: 0001 Patricia waller, [facility] 18:41:47 Gestatio n period, 25 weeks 92164630 Completed 201505/14/2020 25 weeks gestatio n of pregnanc y;Practi ce ID: 0001 Patricia waller, [facility] 18:42:15 Clinical finding Completed 201512/23/2020 Gastro-e sophagea l reflux disease without esophagi tis;Prac navi ID: 0001 Марина Morgan MD [address], [place], [address], [facility] 11:42:18 prematur e rupture of membrane s 041516453 Completed 201505/14/2020 Pretrm chela ROM, unsp time betw rupt and onst labr, 3rd tri;Prac navi ID: 0001 Patricia waller, [facility] 18:43:13 Gestatio n period, 29 weeks [id number] Completed 201505/14/2020 29 weeks gestatio n of pregnanc y;Practi ce ID: 0001 Patricia waller, [facility] 18:42:24 Generali zed abdomina l pain 321811806 Completed 201505/14/2020 Generali zed abdomina l pain;Pra ctice ID: 0001 Patricia Thomas [facility], [facility] 18:42:04 Clinical finding Completed 201505/14/2020 state, incident al;Pract ice ID: 0001 Patricia waller, [facility] 18:41:26 Complica tion of pregnanc y, childbir th and/or puerperi 111055893 Completed 201505/14/2020 Oth diseases and conditio ns compl preg/chl dbrth;Pr actice ID: 0001 Patricia waller, [facility] 18:43:44 Gestatio n period, 30 weeks [id number] Completed 201505/14/2020 30 weeks gestatio n of pregnanc y;Practi ce ID: 0001 Patricia waller, [facility] 18:42:27 Gestatio n period, 32 weeks [id number] Completed 201505/14/2020 32 weeks gestatio n of pregnanc y;Practi ce ID: 0001 Patricia Thomas null, [facility] 18:42:29 Urinary tract infectio us disease 87098547 Completed 201505/14/2020 Urinary tract infectio n, site not specifie d;Practi ce ID: 0001 Patricia Thomas [facility], [facility] 18:43:46 Pregnanc y, childbir th and puerperi um finding Completed 201505/14/2020 Encntr for suprvsn of normal first preg, third trimeste r;Practi ce ID: 0001 Patricia Martha waller, [facility] 18:43:[address] Concept Completed 201505/14/2020 Decrease d movement s, third trimeste r, unsp;Pra ctice ID: 0001 Patricia Thomas [facility], [facility] 18:43:27 Gestatio n period, 35 weeks [id number] Completed 201505/14/2020 35 weeks gestatio n of pregnanc y;Practi ce ID: 0001 Patricia Martha [facility], [facility] 18:42:34 Gestatio n period, 36 weeks [id number] Completed 201505/14/2020 36 weeks gestatio n of pregnanc y;Practi ce ID: 0001 Patricia Thomas [facility], [facility] 18:42:36 Term pregnanc y delivere d [id number] Completed 201505/14/2020 Encounte r for full-ter m uncompli cated delivery ;Practic e ID: 0001 Patricia waller, [facility] 18:43:39 Single live [id number] Completed 201505/14/2020 Single live ;Pr actice ID: 0001 Patricia Thomas sridhar [facility] 18:43:24 Lochia finding Completed 201505/14/2020 Encounte r for routine postpart um follow-u p;Practi ce ID: 0001 Ptaricia Thomas sridhar [facility] 18:42:[address] Concept Completed 201505/14/2020 Encntr for general adult medical exam w/o abnormal findings ;Practic e ID: 0001 Patricia Thomas sridhar [facility] 18:43:30 Acute vaginiti s [id number] Completed 201605/14/2020 Acute vaginiti s;Practi ce ID: 0001 Patricia Thomas [facility] 18:41:08 Educatio n Completed 201605/14/2020 Encounte r for oth general cnsl and advice on contrace ption;Pr actice ID: 0001 Patricia Thomas [facility] 18:41:36 Pregnanc y test negative [id number] Completed 201605/14/2020 Encounte r for pregnanc y test, result negative ;Practic e ID: 0001 Patricia Thomas sridhar [facility] 18:43:02 Uterine size for dates discrepa ncy Completed 201605/14/2020 Uterine size-joanie e discrepa ncy, first trimeste r;Practi ce ID: 0001 Patricia Thomas [facility] 18:43:49 Finding of contents of cervix 805250160 Completed 201605/14/2020 Weeks of gestatio n of pregnanc y not specifie d;Practi ce ID: 0001 Patricia waller, [facility] 18:41:56 Amenorrh ea 79237771 Completed 201605/14/2020 Amenorrh ea, unspecif ied;Prac navi ID: 0001 Patricia waller, [facility] 18:41:12 Threaten ed miscarri age 03207741 Completed 201605/14/2020 Threaten ed ;Practic e ID: 0001 Patricia waller, [facility] 18:43:41 Antenata l screenin g Completed 201605/14/2020 Encounte r for antenata l screenin g for nuchal transluc ency;Pra ctice ID: 0001 Patricia waller, [facility] 18:41:15 Gestatio n period, 12 weeks [id number] Completed 201605/14/2020 12 weeks gestatio n of pregnanc y;Practi ce ID: 0001 Patricia waller, [facility] 18:42:08 Evaluati on finding Completed 201605/14/2020 Hematuri a, unspecif ied;Prac navi ID: 0001 Patricia waller, [facility] 18:41:42 Gestatio n period, 18 weeks [id number] Completed 201605/14/2020 18 weeks gestatio n of pregnanc y;Practi ce ID: 0001 Patricia waller, [facility] 18:42:11 Antenata l screenin g for malforma tion Completed 201605/14/2020 Encounte r for antenata l screenin g for malforma tions;Pr actice ID: 0001 Patricia waller, [facility] 18:41:18 Pregnanc y, childbir th and puerperi um finding Completed 201705/14/2020 Oth pregnanc y related conditio ns, second trimeste r;Practi ce ID: 0001 Patricia waller, [facility] 18:41:22 Gestatio n period, 27 weeks [id number] Completed 201705/14/2020 27 weeks gestatio n of pregnanc y;Practi ce ID: 0001 Patricia waller, [facility] 18:42:20 Prematur e labor [id number] Completed 201705/14/2020 labor without delivery , third trimeste r;Practi ce ID: 0001 Patricia waller, [facility] 18:43:10 Gestatio n period, 28 weeks 82340214 Completed 201705/14/2020 28 weeks gestatio n of pregnanc y;Practi ce ID: 0001 Patricia waller, [facility] 18:42:22 Hemorrha gic complica tion of pregnanc y 475036889 Completed 201705/14/2020 Other hemorrha ge in early pregnanc y;Practi ce ID: 0001 Patricia waller, [facility] 18:42:48 False labor at or after 37 complete d weeks of gestatio n [id number] Completed 201705/14/2020 False labor at or after 37 complete d weeks of gestatio n;Practi ce ID: 0001 Patricia waller, [facility] 18:41:45 Gestatio n period, 38 weeks 75096409 Completed 201705/14/2020 38 weeks gestatio n of pregnanc y;Practi ce ID: 0001 Patricia waller, [facility] 18:42:38 Gestatio n period, 39 weeks [id number] Completed 201705/14/2020 39 weeks gestatio n of pregnanc y;Practi ce ID: 0001 Patricia waller, [facility] 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 18:43:32 Insertio n of intraute rine contrace ptive device Completed 201705/14/2020 Encounte r for insertio n of intraute rine contrace ptive device;P ractice ID: 0001 Patricia waller, [facility] 18:42:50 Finding of pattern of menstrua l cycle 328667915 Completed 201705/14/2020 Excessiv e and frequent menstrua tion with irregula r cycle;Pr actice ID: 0001 Patricia waller, [facility] 18:42:01 Contrace ptive sheath status [id number] Completed 201705/14/2020 Encounte r for routine checking of intraute rine contrace p dev;Prac navi ID: 0001 Patricia waller, [facility] 18:41:30 Removal of intraute rine device Completed 201905/14/2020 Encounte r for removal of intraute rine contrace ptive device;P ractice ID: 0001 Patricia waller, [facility] 18:43:16 Pregnanc y test positive 844815937 Completed 201405/14/2020 Pregnanc y examinat ion or test, positive result;R ecorded Elsewher e: No [facility]: [facility] [employer] Operator laney: N Javier ce ID: 0001 Seymour lable Time: 11:00:00 AM Patricia waller [facility] 1 18:43:05 Female genital organ symptoms [id number] Completed 201405/14/2020 Pelvic pain;Rec orded Elsewher e: No [facility]: [facility] [employer] Operator laney: N Practi ce ID: 0001 Seymour lable Time: 09:30:00 AM [facility] 18:41:50 Dysfunct ional uterine bleeding Completed 201405/14/2020 Other disorder s of menstrua tion and other abnormal bleeding from female genital tract;Re corded Elsewher e: No Locat ion: [facility] Robertati ce ID: 0001 Seymour lable Time: 03:30:00 PM Patricia Thomas [facility] 1 18:41:33 Adult health examinat ion Completed 201405/14/2020 ROUTINE MEDICAL EXAM;Rec orded Elsewher e: No Locat ion: [facility] S ource: [employer] Operator laney: N Robertati ce ID: 0001 Seymour lable Time: 01:00:00 PM Patricia waller [facility] 1 18:41:10 Pelvic and perineal pain 018334738 Completed 201705/14/2020 Pelvic and perineal pain;Rec orded Elsewher e: No Locat ion: [facility] N Robertati ce ID: 0001 Seymour lable Time: 08:45:00 AM Patricia waller [facility] 18:42:58 Clinical finding Completed 201707/17/2020 Presence of (intraut erine) contrace ptive device;R ecorded Elsewher e: No Locat ion: [facility] S ource: [employer] Operator laney: N Practi ce ID: 0001 Seymour lable Time: 02:30:00 PM Rebecca Jcaob sridhar, [facility] 12:15:19 Female infertil ity [id number] Completed 201405/14/2020 Female infertil ity;Wilner rded Elsewher e: No Locat ion: [facility] S ource: [employer] Operator laney: N Practi ce ID: 0001 Seymour lable Time: 01:30:00 PM Patricia waller, [facility] 18:41:53 Gestatio n period, 33 weeks [id number] Completed 201505/14/2020 33 weeks gestatio n of pregnanc y;Record ed Elsewher e: No Locat ion: [facility] S ource: [employer] Operator laney: N Practi ce ID: 0001 Seymour lable Time: 11:00:00 AM Patricia waller, [facility] 18:42:31 Gestatio n period, 26 weeks 63904704 Completed 201505/14/2020 26 weeks gestatio n of pregnanc y;Record ed Elsewher e: No Locat ion: [facility] S ource: [employer] Operator laney: N Practi ce ID: 0001 Seymour lable Time: 02:00:00 PM Patricia waller, [facility] 18:42:17 Speciali zed medical examinat ion Completed 201405/14/2020 Gynecolo gical Examinat ion;Wilner rded Elsewher e: No Locat ion: [facility] S ource: [employer] Operator laney: N Practi ce ID: 0001 Seymour lable Time: 01:00:00 PM Patricia waller [facility] 18:43:35 Emotiona l state finding Completed 201705/14/2020 Anxiety depressi on;Recor ded Elsewher e: No Locat ion: [facility] S ource: EHR [employer] Operator laney: N Practi ce ID: 0001 Seymour lable Time: 09:45:00 AM Patricia Thomas [facility], [facility] 18:41:39 Atypical squamous cells of undeterm ined signific ance on cervical Papanico laou smear [id number] Completed 201409/08/2021 Bridget Cruz [facility], [facility] 2 17:34:30 Screenin g for malignan t neoplasm of cervix Completed 201405/14/2020 Pap Smear;Pr actice ID: 0001 Patricia Martha [facility], [facility] 18:43:20 Pregnanc y 31176909 Completed 202001/08/2021 Nicki hicks [facility], [facility] 12:04:31 Headache [id number] Completed Rxed fioricet Nicki hicks [facility] 12:04:24 Dyspnea 234806002 Completed NL holter Nicki hicks [facility], [facility] 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 12:04:24 Obesity 070660351 Completed 37 week antenata l testing weekly Nicki hicks [facility] 09/23/202 1 12:04:24 Ultrasou nd scan abnormal [id number] Completed cisterna magna borderli ne marya rich at [facility] 11/26- They recommen d brain MRI to evaluate posterio r fossa- Let peds know! Nickivlad Crooksyuedorenecristela hicks [facility], [facility] 1 12:04:24 Past pregnanc y history of postpart um hemorrha ge 662478095 Completed Nicki hicks [facility], [facility] 1 12:04:24 Anxiety 92210855 Completed sertrali ne Nicki hicks [facility] 12:04:24 Problem Notes None recorded. Procedures Surgical History Date Name Laterality Status Provider Name and Address Organization Details Recorded Time 06/09/19 24 Date of Last Pap Smear completed Elizabeth Childers [facility] 06/09/2023 09:27:05 09/17/19 22 extraction of wisdom tooth completed Patricia Thomas [facility] 07/29/2022 09:41:59 04/18/19 15 excision of colon completed VANESSA Hinds [address], [place], [address], [facility] 06/09/2023 09:36:29 04/18/19 15 appendectomy completed Patricia Thomas [facility] 05/14/2020 19:43:41 Imaging Results None recorded. [...] Prescrib ed Elsewher e: No [facility] By: mayo case DateTime : 12/25/19 16 01:00:00 PM Not Available Not Available Not Available sertralin e 100 mg tablet 07/29 completed Not Available Not Available Not Available Diflucan 150 mg tablet take 1 tablet by oral route once 01/31 completed Prescrib ed Elsewher e: No [facility] odify By: tyler cuellar DateTime : [...] No Locat ion: [facility] odify By: binta lópez DateTime : 02/05/20 17 11:42:21 AM Not Available Not Available Not Available Levora 0.15/30 (28) 0.15 mg-0.03 mg tablet take 1 tablet by oral route every day 10/04 completed Prescrib ed Elsewher e: No Locat ion: [facility] odify By: mayo case DateTime : 02/23/20 [...] Prescrib ed Elsewher e: No Locat ion: [facility] odify By: leoncio Redman r DateTime : 02/03/20 18 08:15:00 AM Not Available Not Available Not Available Synthroid 25 mcg tablet take 1 tablet by oral route every day 03/31 completed Prescrib ed Elsewher e: No Locat ion: [facility] odify By: rd Redman r DateTime : [...] No Locat ion: [facility] odify By: [email or web address] Encounte r DateTime : 05/10/19 18 08:45:00 AM Not Available Not Available Not Available Synthroid 88 mcg tablet take 1 tablet by oral route daily 09/16 completed Prescrib ed Elsewher e: No [facility]ify By: [email or web address] Coffey ncounter DateTime : 04/28/19 18 02:09:28 PM Not Available Not Available Not Available Synthroid 75 mcg tablet take 1 tablet by oral route every day 02/17 completed Prescrib ed Elsewher e: No Locat ion: [facility] odify By: mayo Redman r DateTime : 06/10/19 16 01:13:40 PM Not Available Not Available Not Available Synthroid 50 mcg tablet take 1 tablet by oral route every day 04/28 completed Prescrib ed Elsewher e: No Locat ion: [facility] odify By: [email or web address] Crockerte r DateTime : [...] Prescrib ed Elsewher e: No Locat ion: [facility] odify By: binta lópez DateTime : 04/25/19 10:15:00 AM Not Available Not Available Not Available epinephri ne 0.3 mg/0.3 mL injection , auto-inje ctor USE IM UTD 07/21 completed Not Available Not Available Not Available Vitamin D2 1,250 mcg (50,000 unit) capsule take 1 capsule by oral route every week 02/17 completed Prescrib ed Elsewher e: No Locat ion: [facility] odify By: mayo Redman r DateTime [...] Prescrib ed Elsewher e: No Locat ion: [facility] odify By: mayo Redman r DateTime : 11/09/19 15 04:15:00 PM Not Available Not Available Not Available iron 18 mg tablet 02/17 completed Prescrib ed Elsewher e: Yes Loca tion: [facility] odify By: mayo Redman r DateTime : 08/20/19 15 01:00:00 PM Not Available Not Available Not Available azithromy arian 500 mg tablet take 2 tablet by oral route once 02/17 completed Prescrib ed Elsewher e: No Locat ion: [facility] odify By: mayo Redman r DateTime [...] No Locat ion: [facility] odify By: mayo Redman r DateTime : 09/12/19 16 08:30:00 AM Not Available Not Available Not Available Prevacid 24Hr 15 mg capsule,d elayed release take 1 capsule by oral route every day before a meal 02/17 completed Prescrib ed Elsewher e: No Locat ion: [facility] odify By: mayo Redman r DateTime : 08/11/19 16 02:00:00 PM Not Available Not Available Not Available butalbita l-acetami nophen-ca ffeine 50 mg-300 mg-40 mg capsule Take 1 capsule every 4 hours by oral route. 01/07 completed Not Available Not Available Not Available AIRPORT GUIDE-PNV-DH A 28 mg iron-1 mg-200 mg capsule take 1 capsule by oral route every day 09/16 completed Prescrib ed Elsewher e: No [facility] odify By: [email or web address] E ncounter DateTime [...] Updated DateTime 04/29/2021 160.02 cm 36.1 kg/m2 59531.84 g 132 mm[Hg] 84 mm[Hg] Rebecca Jacob [facility] - [facility] 2 10:43:08 Date Recorded Body height Provider Name an d Address Organization Details Last Updated DateTime 06/04/2021 160.02 cm Marbin Marc MD [address], [place], [address], [facility] 06/04/2021 17:41:06 Date Recorded Body height Body mass index (BMI) Body weight Systolic blood pressure Diastolic blood pressure Provider Name and Address Organization Details Last Updated DateTime 07/29/2022 160.02 cm 35.8 kg/m2 54425.66 g 117 mm[Hg] 82 mm[Hg] Patricia Thomas [facility] 3 09:41:02 Date Recorded Body height Body mass index (BMI) Body weight Systolic blood pressure Diastolic blood pressure Provider Name and Address Organization Details Last Updated DateTime 06/09/2023 160.02 cm 38.4 kg/m2 89691.54 g 117 mm[Hg] 78 mm[Hg] [facility] 4 09:25:33 Date Recorded Body height Body mass index (BMI) Body weight Systolic blood pressure Diastolic blood pressure Provider Name and Address Organization Details Last Updated DateTime 06/22/2023 160.02 cm 39 kg/m2 93334.32 g 133 mm[Hg] 76 mm[Hg] [facility] 4 10:06:55 Social History Question Answer Notes LastModified by Organizat ion Details LastModified Time Tobacco Smoking Status Never Smoker [facility] 10/12/2019 16:43:32 What Is Your Level Of Alcohol Consumption? None [email or web address] Information not available 05/14/2020 If You Are , What Was Your Level Of Alcohol Consumption Prior To ? None [email or web address] Information not available 05/14/2020 Are You Blind Or Do You Have Difficulty Seeing? No [email or web address] Information n ot available 10/21/2020 What Is Your Level Of Caffeine Consumption? Occasional [email or web address] Information not available 05/14/2020 In The 14 Days Before Symptom Onset, Have You Had Close Contact With A Laboratory-confirm ed COVID-19 While That Case Was Ill? No [email or web address] Information n ot available 10/21/2020 In The 14 Days Before Symptom Onset, Have You Had Close Contact With A Person Who Is Under Investigation For COVID-19 While That Person Was Ill? No [email or web address] Information not available 10/21/2020 Have You Been To An Area Known To Be High Risk For COVID-19? No [email or web address] Information not available 10/21/2020 Are You Deaf Or Do You Have Serious Difficulty Hearing? No [email or web address] Information not available 10/21/2020 What Type Of Diet Are You Following? REGULAR [email or web address] Information n ot available 10/21/2020 Do You Use Your Seat Belt Or Car Seat Routinely? Yes [email or web address] Information not available 10/21/2020 Are You Sexually Active? Yes Information not available 06/09/2023 Do You Have Smoke And Carbon Monoxide Detectors In Your Home? Yes [email or web address] Information not available 10/21/2020 Do You Feel Stressed (tense, Restless, Nervous, Or Anxious, Or Unable To Sleep At Night)? [id number] [email or web address] Information not available 10/21/2020 Do You Use Any Illicit Or Recreational Drugs? No Information not available 05/14/2020 Do You Use Sunscreen Routinely? Yes Information not available 10/21/2020 Has Tobacco Cessation Counseling Been Provided? No Information not available 05/14/2020 Do You Or Have You Ever Used Any Other Forms Of Tobacco Or Nicotine? No [email or web address] Information not available 05/14/2020 Sex: Unknown Functional Status Question Answer Note LastModified by Organizat ion Details LastModified Time Do you have difficulty walking or climbing stairs? No [email or web address] Information not available 07/29/2022 Are you able to walk? YESWOREST [email or web address] Information not available 10/21/2020 Are you able to care for yourself? Yes Information not available 07/29/2022 Do you have difficulty dressing or bathing? No Information not available 07/29/2022 What is your exercise level? Moderate [email or web address] Information not available 10/21/2020 Mental Status None [...] ICD10 Code Diagnosis Note 1309 Melodie Jenkins [place] [address],[place] [address] 08/06/2019 10:35:26 08/07/2019 13:38:12 Vaginitis 93307206 N76.0 Discussed use of mild soap like dove or ivory, cotton underwear w/out dye, hypoallerg enic detergent, wipe from front to back, avoid tub baths, keep perineum clean and dry, d/c use of baby wipes. Encouraged daily intake of yogurt or womens health probiotic. Internal and external affirm collected along with STD culture per patient request. 8141 Melodie Jenkins [place] [address],[place] [address] 10/02/2019 11:06:56 10/03/2019 09:16:56 test positive 863779266 Z32.01 9729 Marbin Marc MD [place] [address],[place] [address] 10/12/2019 16:08:09 10/15/2019 14:20:15 test positive 114053463 Z32.01 This patient is a 29-year-ol d [...] the ultrasound . 9855 Marbin Marc MD [place] [address],[place] [address] 10/15/2019 13:24:40 10/15/2019 14:36:23 screening 083545091 Z36.9 This patient is a 29-year-ol d female who presents for follow-up onearly gestation. Herpregnan cy was of unknown viability. Ultrasound was performed today. Intrauteri ne gestationa l sac and yolk sac were observed.T his is fairly consistent with her suspectedg estational age.She has no complaints . No cramping or bleeding. She will follow-up in 2 weeks. 9856 [facility] [address],[place] [address] 10/15/2019 13:25:12 10/15/2019 17:30:58 Uncertain viability of 432337116 O36.80X9 Z3A.01 34971 [facility] [address],[place] [address] 10/29/2019 15:24:56 10/29/2019 16:21:39 Uncertain viability of 192775447 O36.80X9 Z3A.01 53951 Marbin Marc MD [place] [address],[place] [address] 10/29/2019 15:25:16 10/29/2019 17:40:59 Crohn's disease 21883863 K50.90 This patient is a 29-year-ol d [...] initial OB. We talked about genetic screening. [id number] Melodie Jenkins [place] [address],[place] [address] 11/05/2019 17:25:37 11/05/2019 22:15:29 test positive 685060026 Z32.01 Risk factors addressed: Tobacco Cessation, Safe [...] annual well woman examinatio n and address [facility] . [address] Shanita Negrete CNM [place] [address] [address] 05/14/2020 16:55:26 05/20/2020 12:21:48 Amenorrhea 73531611 N91.2 14169 Fadumo Cruz [place] [address],[place] [address] 05/14/2020 16:49:09 05/14/2020 17:28:37 screening 888074299 Z36.87 This patient is a 29-year-ol d female who presents for follow-up onearly gestation. Herpregnan cy was of unknown viability. Ultrasound was performed today. Intrauteri ne gestationa l sac and yolk sac were observed.T his is fairly consistent with her suspectedg estational age.She has no complaints . No cramping or bleeding. She will follow-up in 2 weeks. [id number] Marbin Marc MD [place] [address],[place] [address] 06/10/2020 14:41:22 06/10/2020 16:08:51 Tachycardia 9195253 R00.0 This patient is a 29-year-ol d [...] this patient s visit, including available hand riffler tender upon arrive, temperelliotur e check and being asked a series of screening questions. All staff wore face coverings during this encounter, as well as provided additional cleaning and sanitizing of all surfaces, including countertop s, pens, chairs, door handles, light switches, etc, prior to and following the patient s visit. Orthostati c hypotension 68749800 I95.1 Headache 39404727 R51.9 [id number] [facility] [address],[place] [address] 06/23/2020 09:35:05 06/23/2020 10:17:22 screening 312479927 Z36.82 This patient is a 29-year-ol d female who presents for follow-up onearly gestation. Herpregnan cy was of unknown viability. Ultrasound was performed today. Intrauteri ne gestationa l sac and yolk sac were observed.T his is fairly consistent with her suspectedg estational age.She has no complaints . No cramping or bleeding. She will follow-up in 2 weeks. [id number] Marbin Marc MD [place] [address],[place] [address] 06/23/2020 09:35:51 06/23/2020 13:22:37 Routine care 552207860 Z34.91 Headache 06637056 R51.9 57582 [facility] [address],[place] [address] 07/21/2020 11:02:28 07/21/2020 12:21:49 Routine care 242555156 Z34.92 46788 [facility] [address],[place] [address] 08/12/2020 12:15:27 08/12/2020 12:42:58 Urinary tract infectious disease 89391993 N39.0 91197 [facility] [address],[place] [address] 08/18/2020 13:55:21 08/18/2020 15:22:57 Routine care 466954775 Z34.92 11728 [facility] [address],[place] [address] 08/18/2020 13:54:38 08/18/2020 15:05:57 screening for malformation 346147223 Z36.3 73355 [facility] [address],[place] [address] 09/22/2020 13:55:52 09/22/2020 15:22:24 Routine care 941345542 Z34.92 06006 Janessa Finley [place] [address],[place] [address] 09/22/2020 13:54:28 09/22/2020 14:56:16 Excessive growth affecting management of mother 54310519 O36.62X0 Z3A.24 86089 [facility] [address],[place] [address] 10/21/2020 13:40:04 10/21/2020 16:44:29 Routine care 559014308 Z34.92 85151 Marbin Marc MD [place] [address],[place] [address] 11/01/2020 12:36:48 11/01/2020 13:17:16 Routine care 364411541 Z34.91 Crohn's disease 78277540 K50.90 This patient is a 29-year-ol d female who presents forfollow- up onfirst trimesterI UP. She has Crohn's disease. [facility]. She has a 7-week 4-dayIUPto day. An ultrasound was performed. We reviewed those results.Liat coffey is doing well. She had a recent flare of her Crohn's. She is doing well now.We discussed various aspects of care. We discussed monitoring / testing.Liat coffey return in 5 weeks for initial OB. We talked about genetic screening. 35724 Shanita Negrete CNM [place] [address],[place] [address] 11/21/2020 14:02:00 11/21/2020 16:40:13 Routine care 582248523 Z34.93 49596 Marbin Marc MD [place] [address],[place] [address] 12/02/2020 10:49:04 12/02/2020 12:03:22 Routine care 243746515 Z34.91 Hemorrhoids 01060925 K64 .9 04076 Melodie Jenkins [place] [address],[place] [address] 12/16/2020 09:47:06 12/16/2020 23:14:17 Routine care 810810958 Z34.92 64619 [facility] [address],[place] [address] 12/16/2020 09:47:41 12/16/2020 11:48:06 Maternal obesity complicating , childbirth and the puerperium, antepartum 6863991229 07 O99.213 31617 [facility] [address],[place] [address] 12/16/2020 09:49:49 12/16/2020 11:48:32 Pre-existing maternal disease complicating 5195331288 6106 O99.891 45720 [facility] [address],[place] [address] 12/19/2020 11:17:29 12/19/2020 13:08:12 Maternal obesity complicating , childbirth and the puerperium, antepartum 3513325653 07 O99.213 98737 [facility] [address],[place] [address] 12/19/2020 12:47:08 12/19/2020 14:07:49 Abnormal heart rate 823153376 O36.8330 Z3A.37 90210 Fadumo Cruz [place] [address],[place] [address] 12/23/2020 09:38:51 12/23/2020 10:40:59 Pre-existing maternal disease complicating 7336939211 6106 O99.213 Z3A.38 18420 [facility] [address],[place] [address] 12/23/2020 09:39:10 12/23/2020 12:22:11 Maternal obesity complicating , childbirth and the puerperium, antepartum 1816055294 07 O99.213 80693 Марина Morgan MD [place] [address],[place] [address] 12/23/2020 09:39:23 12/23/2020 12:52:32 Routine care 922830888 Z34.83 47282 [facility] [address],[place] [address] 12/29/2020 14:28:49 12/29/2020 15:50:41 Routine care 340955482 Z34.92 14320 [facility] [address],[place] [address] 12/29/2020 13:29:42 12/29/2020 14:28:54 Maternal obesity complicating , childbirth and the puerperium, antepartum 9697017625 07 O99.213 20877 Gerriaugusto Gary [place] [address],[place] [address] 12/29/2020 14:58:47 12/29/2020 16:29:49 Maternal obesity complicating , childbirth and the puerperium, antepartum 8440844766 07 O99.213 02126 [facility] [address],[place] [address] 01/07/2021 11:52:57 01/07/2021 14:56:14 -induced hypertension 7099245660 9100 O13.9 PIH precaution s given. RTC for routine post visit. Pt desires tubal ligation. Discussed procedure risks and benefits. Will send to surgery scheduling . 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 Has only been taking 50mg and feels it works well for her. Female sterilization 608 51994 Z30.2 09692 Marbin Marc MD [place] [address],[place] [address] 01/19/2021 09:46:40 01/19/2021 10:50:08 Infection of uterus 148385126 N71.9 This patient is a 30-year-ol d [...] up in 5 days for routine follow-up. [id number] Melodie Coronadovicki [place] [address],[place] [address] 01/26/2021 11:56:15 01/27/2021 19:45:23 state 00924254 Z39.2 Continue to watch for signs/symp toms [...] paper copy of today's plan if desired [id number] Marbin Marc MD [place] [address],[place] [address] 02/10/2021 15:49:50 02/10/2021 17:06:15 Female sterilization 37047109 Z30.2 this patient is a 30-year-ol d female who desires female sterilizat ion. We have agreed to perform laparoscop ic bilateral salpingect natasha. She understand s the risks, benefits, and alternativ es. She has completed the informed consent process and is ready to proceed. [id number] Melodie Jenkins [place] [address],[place] [address] 02/24/2021 14:20:01 02/24/2021 15:30:03 Contraception care management 665664676 Z30.9 Decided against tubal d/t chrons. Pt would like to start p.o.p. Discussed importance of taking at the same time every day. Also informed that it may not be as effective as estrogen containing pills. RTC in 3 months for wwe with med check. [id number] [facility] [address],[place] [address] 04/29/2021 10:35:14 04/30/2021 17:08:00 Pain of breast 38181498 N64.4 Due to descriptio n of pain being pins and needles will treat for yeast with a 2 week round of diflucan. If no resolution of symptoms will need to schedule imaging. Pt will return in 1-2 weeks for follow up. [id number] Marbin Marc MD [place] [address],[place] [address] 06/04/2021 11:21:03 06/04/2021 17:42:14 [id number] Melodie Jenkins [place] [address],[place] [address] 07/29/2022 09:30:44 07/29/2022 10:04:29 Vaginitis 16596632 N76.0 Discussed use of mild soap like dove or ivory, cotton underwear w/out dye, hypoallerg enic detergent, wipe from front to back, avoid tub baths, keep perineum clean and dry, d/c use of baby wipes. Encouraged daily intake of yogurt or womens health probiotic. Internal and external affirm collected along with STD culture per patient request. [id number] VANESSA Hinds [place] [address],[place] [address] 06/09/2023 09:14:02 06/09/2023 10:03:07 Gynecologic examination 48049504 Z01.419 WWEpap updateddec lined STI screeningr outine [...] of today's plan if desired. Irregular periods 000558 07 N92.6 UPT (-)labs orderedgiv en this is the first occurrence , continue to track cycles and return if no period for 3 months. Discussed importance of periods every 3 months for endometria l protection . [id number] VANESSA Hinds [place] [address] [address] 06/22/2023 10:03:28 06/22/2023 11:08:01 Contraception care management 839213105 Z30.9 Discussed all control options in great [...] Disla Member ID Guarantor Name 04/29/2021 1 [facility] [employer] [id number] Marlo Sykes [id number] Agnieszka Sykes 06/04/2021 1 [facility] [employer] [id number] Marlo Sykes [id number] Agnieszka Simmonst 07/29/2022 1 [facility] [employer] [id number] Marlo Sykes [id number] Agnieszka Simmonst 06/09/2023 1 [facility] [employer] [id number] Marlo Sykes [id number] Agnieszka Simmonst 06/22/2023 1 [facility] [employer] [id number] Marlo Sykes [id number] Agnieszka Sykes Notes Date Note Type Note Provider Name and Address Organization Details Recorded Time 04/29/2021 text/html Pain in left millie ast while . Usually starts a few minutes into the feeding. Feels like pins and needles. Very sharp. No lumps, no redness, no tender areas. No fever or flu like symptoms. Melodie Jenkins [facility] 05/18/2021 18:45:43 07/29/2022 text/html Vaginal/Vulvar ProblemReported bypatient.Notes:Water y discharge, occasional odor, occasional itching Melodie waller [facility] 07/29/2022 09:54:27 06/09/2023 text/html Annual GYNReport [...] a month VANESSA Hinds [address], [place], [address], [facility] 06/09/2023 10:02:07 06/22/2023 text/html 32yo [id number] ents for BC consultwould like BC to prevent and period regulationdenies h/o DVT/PE, HTN, Stroke/AR, cancer, liver disease, or migraine with auramedical hx: Crohn's Hilaria Alarcon, [facility] [address], [place], [address], [facility] 06/22/2023 11:01:35 OBGyn Episode Ob Episode Information Episode Created Date Number of Fetuses Patient Bloodtype Patient rh Status Prepregnancy Weight lbs Domestic Partner Domestic Partner Phone Father Name Drill Press Set Up Operator Radial Status 08/06/19 1 CLOSED Fetus Data First [...] Domestic Partner Domestic Partner Phone Father Name Drill Press Set Up Operator Radial Status 08/06/19 1 CLOSED Fetus Data First [...] Domestic Partner Domestic Partner Phone Father Name Drill Press Set Up Operator Radial Status 08/06/19 20 1 CLOSED Fetus Data [...] Domestic Partner Domestic Partner Phone Father Name Drill Press Set Up Operator Radial Status 06/24/19 21 1 CLOSED Fetus Data [...] Domestic Partner Domestic Partner Phone Father Name Drill Press Set Up Operator Radial Status 06/24/19 21 1 O Positive 207 [...] Date Resolution Snomed Code Not e Obesity 839267397 37 week an tenatal testing weekly Past history of hemorrhage 678001938 Headache MEDICATION 60176539 Rxed raji icet Dyspnea 573132717 holter Crohn's disease 10/29/2019 61036762 s/p bowel resection, no meds - MFM- 08/20 u/s & OV- 08/15 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 Anxiety 75166687 sertraline Candelario Calculation Initial Candelario Date Initial [...] Weight in lbs Pre/Post Dialysis Refused Weight 208.655826255195 BP Diastolic BP Location Tested BP Systolic [...] Weight in lbs Pre/Post Dialysis Refused Weight 203.86128926606 BP Diastolic BP Location Tested BP Systolic BP Type 76 116 Fetus Heart Rate Present Fetus Movement A Yes Comments Having a boy! Doing well. AF P drawn today. Return in 4 weeks for routine visit and and baseline anatomy. Unable to doppler FHT. U/S to follow.Ultrasound showed viable IUP FHR 144bpm. Good movement. Pt informed and aware. EDGAR [facility] Flowsheet Date 08/12/2020 Donahue Score Blood [...] Weight in lbs Pre/Post Dialysis Refused Weight 203.64409192949 BP Diastolic BP Location Tested BP Systolic [...] Weight in lbs Pre/Post Dialysis Refused Weight 208.057465806207 BP Diastolic BP Location Tested BP Systolic [...] Weight in lbs Pre/Post Dialysis Refused Weight 207.733145251713 BP Diastolic BP Location Tested BP Systolic [...] Weight in lbs Pre/Post Dialysis Refused Weight 211.127117803389 BP Diastolic BP Location Tested BP Systolic BP Type 82 128 Fetus Heart Rate Present A 145 Fetus Movement A Yes Comments 2+glucose, just ate, Flowsheet Date 11/21/2020 Donahue Score Blood Edema Fundus Height Fundus Units Glucose Ketones Leukocytes Nitrite Labor Signs Protein Cervic Dilation Cervic Effacement Cervic Station neg trace trace Type Weight in lbs Pre/Post Dialysis Refused Weight 211.864283021159 BP Diastolic BP Location Tested BP Systolic [...] Weight in lbs Pre/Post Dialysis Refused Weight 215.939614606348 BP Diastolic BP Location Tested BP Systolic [...] Weight in lbs Pre/Post Dialysis Refused Weight 213.141264332206 BP Diastolic BP Location Tested BP Systolic [...] Weight in lbs Pre/Post Dialysis Refused Weight 216.913988253819 BP Diastolic BP Location Tested BP Systolic [...] Weight in lbs Pre/Post Dialysis Refused Weight 218.619651137187 BP Diastolic BP Location Tested BP Systolic [...] Weight in lbs Pre/Post Dialysis Refused Weight 200.015020868882 BP Diastolic BP Location Tested BP Systolic [...] Estim ated Date of Delivery false Thalassemia (Danish, Malian, Mediterranean, Or Background): MCV < 80 false Neural Tube Defect (Meningomyelocele, Spina Bifi da, Or Anencephaly) false Congenital Heart Defect false Down Syndrome false Andrea-Sachs (eg, Nondenominational, Cajun, Greenlandic-Kingston) f alse Renetta Disease false Sickle Cell Disease Or Trait () false Hemophilia Or Other Blood Disorders false Muscular Dystrophy false Cystic Fibrosis false Shackelford's Chorea false Intellectual Disability/Autism false If Yes, [...]
--- OUTSIDE RECORDS SUMMARY | 2024-06-08 07:00 | XMS_ITS | Encounter Summary ---
Author Organization [facility] Address [address] [place] [address] Care Team Providers Care 3Rd Pressman Name Role Phone Enoch Loyd MD Primary Care Provider [phone] Encounter Details Date Type Department Care Team (Late st Contact Info) Description 03/30/2013 Telephone [facility] Women's Health Maternal & Care [address] [place] [address] Andreina Irving, [facility] [place] [address] [place] [address] Social History Tobacco Use Types Packs/Day Years [...] on filedocumented in this encounter Care Teams 3Rd Pressman Relationship Specialty Start Date End Date Enoch Loyd MD [address] [facility]. [address] [place] [address] PCP - General Internal Medicine 02/28/13 documented as of this encounter
== END 2024-06-08 06:57 | disposition home or self-care (01) ==
PROVIDERS: PCP Nurse Practitioner Family; Visit Provider Nurse Practitioner Family
DX: I26.99 Other pulmonary embolism without acute cor pulmonale (principal)
CPT/HCPCS: 71275; Q9967

== ENCOUNTER 2024-06-22 01:41 | Day surgery (SDC) | payer OTHER, SELFPAY ==
[2024-06-13 14:28] VITALS: BMI 31.4
--- NOTE | 2024-06-13 14:51 | PC.NURSE ---
Report to the Outpatient Waiting Room, entrance under the green pavilion located off [facility], at time 1300 on date 06/22/2024. Planned Procedure Time: 1500.? Time changes happen often and if your time is changed the preop area will call you the afternoon before. - You and your visitor will be asked to self-screen and do not enter if you have any COVID symptoms. Please call surgeon if you need to reschedule. - A mask is optional within the hospital at this time. Patients may have clear liquids (water, carbonated beverages, clear teas, apple juice) until 3 hours prior to surgery with a maximum of 20 ounces. - No food from midnight until time of surgery and no smoking, or chewing tobacco (or any form of nicotine). No chewing gum, candy or mints. Take only the following medications with a SIP of water on the morning of surgery: N/A DO NOT STOP ANY OF YOUR OTHER PRESCRIPTION MEDICATIONS PRIOR TO SURGERY EXCEPT THE FOLLOWING Hold all vitamins and supplements for 3 days per anesthesiologist. Medications to discontinue per physician: N/A Please no make-up, nail martiniquais, hairspray, perfume, deodorant, or body powder the day of surgery.? No jewelry (including any body piercings) or valuables the day of surgery, leave them at home.? Please take a shower or bath the night before, or the morning of, surgery with an antibacterial soap.? Wear comfortable, loose fitting clothing.? - Jewelry must be removed prior to entering the operating room.? Rings and piercings that are not removed may be cut off. - The hospital will not accept responsibility for valuables.? - Please leave all valuables, including medications, at home the day of surgery. If you are going home after surgery, a licensed team cdl driver must drive you home.? - NO public transportation without another adult if you receive anesthesia. - We recommend that an adult stay with you for 24 hours following discharge. - We also recommend that you do not drive, make important decision, drink alcoholic beverages, or take any drugs that were not prescribed by your health care provider for at least 24 hours after your discharge time. Follow any additional instructions given to you from your surgeon. Telephone instructions given to ____patient and asked if any additional questions and then verbalized understanding. Patient advised to call surgeon office or pre surgery nurse liaison [phone] if any additional questions.
[2024-06-22] VITALS (10 sets, daily range): BP systolic 92–151; BP diastolic 65–96; PULSE 84–115; RESP 14–19; TEMP 36.4–36.9; O2SAT 96–100; BMI 32.4
--- OUTSIDE RECORDS SUMMARY | 2024-06-22 01:44 | XMS_ITS | Clinical Summary ---
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 discs appear normal. The central canal is patent. The facets appear normal. No neural foraminal stenosis is seen. IMPRESSION: 1. No evidence of acute fracture in the cervical, thoracic, or lumbar spine. The report is dictated by Matt Arredondo MD, (student life vice president) Deion Jiménez MD have personally reviewed and interpreted this examination/study. > Interpreting Provider: Deion Valencia MD on 06/19/2024 12:08 PM Aleks Aguilar MD CT ORDERABLES * CT CERVICAL SPINE WO CONTRAST - C-Spine Trauma, Spine fracture (06/19/2024 9:09 AM [facility]) Anatomical Region Laterality Modality Spine Computed Tomogra phy 06/19/2024 9:32 AM [facility] Impressions 06/19/2024 12:08 PM [facility] IMPRESSION: 1. No evidence of acute fracture in the cervical, thoracic, or lumbar spine. The report is dictated by Matt Arredondo MD, (student life vice president) Deion Jiménez MD have personally reviewed and interpreted this examination/study. > Interpreting Provider: Deion Valencia MD on 06/19/2024 12:08 PM Narrative 06/19/2024 12:08 PM [facility] PROCEDURE: CT CERVICAL SPINE WO CONTRAST, CT THORACIC SPINE WO CONTRAST, CT LUMBAR SPINE WO CONTRAST, DATE/TIME OF EXAM: 06/19/2024 9:10 AM, LOCATION [facility] INDICATION: Trauma ADDITIONAL CLINICAL INFORMATION: Ordering Provider Reason For Exam: Technologist Note: Additional: EXAMINATION: 1. Computed tomography (CT) of the cervical spine without contrast 2. CT of the thoracic spine without contrast 3. CT of the lumbar spine without contrast TECHNIQUE: CT of the cervical spine were performed without contrast according to standard protocol. Reformatted axial, sagittal, and coronal images of the thoracic and lumbar spine were obtained by the technologist from a concurrently performed body CT and sent to the workstation for review. COMPARISON: No prior study is available for comparison at the time of this dictation. FINDINGS: Cervical spine: No soft tissue abnormality is identified. The cervical spine is straightened with loss of cervical lordosis. The prevertebral soft tissue is normal in thickness. The mineralization of the bones is normal. Vertebral bodies are normal in height without evidence of acute fracture. The craniocervical junction is normal. The intervertebral discs appear normal. The central canal is patent. The facets appear normal. The uncovertebral joints appear normal. No neural foraminal stenosis is seen. Thoracic spine: No soft tissue abnormality is identified. The alignment is normal. The mineralization of the bones is normal. Vertebral bodies are normal in height without evidence of acute fracture. There is mild multilevel degenerative disc disease. The central canal is patent. The facets appear normal. No neural foraminal stenosis is seen. Lumbar spine: No soft tissue abnormality is identified. The alignment is normal. The mineralization of the bones is normal. Vertebral bodies are normal in height without evidence of acute fracture. The intervertebral discs appear normal. The central canal is patent. The facets appear normal. No neural foraminal stenosis is seen. Procedure Note Deion Valencia MD - 06/19/2024 PROCEDURE: CT CERVICAL SPINE WO CONTRAST, CT THORACIC SPINE WOCONTRAST, CT LUMBAR SPINE WO CONTRAST, DATE/TIME OF EXAM: 06/19/2024 9:10 AM,LOCATION [facility] INDICATION: Trauma ADDITIONAL CLINICAL INFORMATION: Ordering Provider Reason For Exam: Technologist Note: Additional: EXAMINATION: 1. Computed tomography (CT) of the cervical spine without contrast 2. CT of the thoracic spine without contrast 3. CT of the lumbar spine without contrast TECHNIQUE: CT of the cervical spine were performed without contrast according to standard protocol. Reformatted axial, sagittal, and coronal images of the thoracic and lumbar spine were obtained by thetechnologist from a concurrently performed body CT and sent to the workstation for review. COMPARISON: No prior study is available for comparison at the time ofthis dictation. FINDINGS: Cervical spine: No soft tissue abnormality is identified. The cervical spine is straightened with loss of cervical lordosis. The prevertebral soft tissue is normal in thickness. The mineralization ofthe bones is normal. Vertebral bodies are normal in height without evidenceof acute fracture. The craniocervical junction is normal. Theintervertebral discs appear normal. The central canal is patent. The facets appearnormal. The uncovertebral joints appear normal. No neural foraminal stenosis is seen. Thoracic spine: No soft tissue abnormality is identified. The alignment is normal. The mineralization of the bones is normal. Vertebral bodies are normal in height without evidence of acutefracture. There is mild multilevel degenerative disc disease. The central canal is patent. The facets appear normal. No neural foraminal stenosis is seen. Lumbar spine: No soft tissue abnormality is identified. The alignment is normal. The mineralization of the bones is normal. Vertebral bodies are normal in height without evidence of acutefracture. The intervertebral discs appear normal. The central canal is patent. The facets appear normal. No neural foraminal stenosis is seen. IMPRESSION: 1. No evidence of acute fracture in the cervical, thoracic, or lumbar spine. The report is dictated by Matt Arredondo MD, (student life vice president) Deion Jiménez MD have personally reviewed and interpreted this examination/study. > Interpreting Provider: Deion Valencia MD on 06/19/2024 12:08 PM Aleks Aguilar MD CT ORDERABLES * CT HEAD WO CONTRAST - Head Trauma, CSF leak, mental status changes (06/19/2024 9:09 AM [facility]) Anatomical Region Laterality Modality Head Computed Tomogra phy 06/19/2024 9:13 AM [facility] Impressions 06/19/2024 11:06 AM [facility] IMPRESSION: 1. No acute intracranial process. The report is dictated by Matt Arredondo MD, (student life vice president) Lulú Jiménez MD have personally reviewed and interpreted this examination/study. > Interpreting Provider: Lulú An MD on 06/19/2024 11:06 AM Narrative 06/19/2024 11:06 AM [facility] PROCEDURE: CT HEAD WO CONTRAST, DATE/TIME OF EXAM: 06/19/2024 9:10 AM, LOCATION [facility] INDICATION: Trauma ADDITIONAL CLINICAL INFORMATION: Ordering Provider Reason For Exam: Technologist Note: Additional: 9 TECHNIQUE: CT of the head was performed without contrast according to standard protocol. CONTRAST: None. COMPARISON: No prior study is available for comparison at the time of this dictation. FINDINGS: No acute intracranial hemorrhage or intra- or extra-axial fluid collections are identified. The ventricles are of normal size, shape, and morphology. The basal cisterns are patent. No mass effect or midline shift is seen. The mason-white matter differentiation is normal. Other than mild paranasal sinus disease, the visualized portions of the orbits, paranasal sinuses, and mastoids appear normal. No acute calvarial fracture is identified. Brain injury guidelines: Skull fracture: No Subdural hematoma: No subdural hematoma. Epidural hematoma: No epidural hematoma. Intraparenchymal hemorrhage: No intraparenchymal hemorrhage. Subdural hemorrhage: No subarachnoid hemorrhage. Intraventricular hemorrhage: No. Midline shift: No. Procedure Note Lulú An MD - 06/19/2024 PROCEDURE: CT HEAD WO CONTRAST, DATE/TIME OF EXAM: 06/19/2024 9:10 AM, LOCATION [facility] INDICATION: Trauma ADDITIONAL CLINICAL INFORMATION: Ordering Provider Reason For Exam: Technologist Note: Additional: 9 TECHNIQUE: CT of the head was performed without contrast according to standard protocol. CONTRAST: None. COMPARISON: No prior study is available for comparison at the time ofthis dictation. FINDINGS: No acute intracranial hemorrhage or intra- or extra-axial fluidcollections are identified. The ventricles are of normal size, shape, andmorphology. The basal cisterns are patent. No mass effect or midline shift is seen.The mason-white matter differentiation is normal. Other than mild paranasal sinus disease, the visualized portions of the orbits, paranasal sinuses, and mastoids appear normal. No acute calvarial fracture is identified. Brain injury guidelines: Skull fracture: No Subdural hematoma: No subdural hematoma. Epidural hematoma: No epidural hematoma. Intraparenchymal hemorrhage: No intraparenchymal hemorrhage. Subdural hemorrhage: No subarachnoid hemorrhage. Intraventricular hemorrhage: No. Midline shift: No. IMPRESSION: 1. No acute intracranial process. The report is dictated by Matt Arredondo MD, (student life vice president) I, Lulú An MD have personally reviewed and interpreted this examination/study. > Interpreting Provider: Lulú An MD on 06/19/2024 11:06 AM Aleks Aguilar MD CT ORDERABLES * TEG 6 GLOBAL HEMOSTASIS W/ LYSIS (06/19/2024 9:06 AM [facility]) Citrated Kaolin R (Reaction Time) 6.6 4.6 - 9.1 min 06/19/2024 10:[address] [facility] Citrated Kaolin LY30 (Lysis) 0.1 0.0 - 2.6 % 06/19/2024 10:[address] [facility] Citrated Functional Fibrinogen MA (Max Amplitude) 17.1 15.0 - 32.0 mm 06/19/2024 10:[address] [facility] Citrated RapidTEG MA (Max Amplitude) 56.4 52.0 - 70.0 mm 06/19/2024 10:[address] [facility] Blood BLOOD SPECIMEN / Unknown Venipuncture / Unknown 06/19/2024 9:06 AM [facility] 06/19/2024 9:17 AM [facility] Aleks Aguilar MD LAB - HEMATOLOGY ORD ERABLES [facility] [address] [place] [phone], [facility] [phone] * TEG 6S PLATELET MAPPING (06/19/2024 9:06 AM [facility]) TEGPLM (Max Amplitude) Koalin 57.7 53.0 - 68.0 mm 06/19/2024 10:[address] [facility] TEGPLM (Max Amplitude) ACTF 8.7 2.0 - 19.0 mm 06/19/2024 10:[address] [facility] TEGPLM (Max Amplitude) ADP 61.4 45.0 - 69.0 mm 06/19/2024 10:[address] [facility] TEGPLM (Max Amplitude) AA 58.1 51.0 - 71.0 mm 06/19/2024 10:[address] [facility] TEGPLM %Inhibition ADP 0.0 0.0 - 17.0 % 06/19/2024 10:[address] [facility] TEGPLM %Inhibition AA 0.0 0.0 - 11.0 % 06/19/2024 10:[address] [facility] TEGPLM %Aggregation ADP 100.0 83.0 - 100.0 % 06/19/2024 10:[address] [facility] TEGPLM % Aggregation AA 100.0 89.0 - 100.0 % 06/19/2024 10:[address] [facility] Blood BLOOD SPECIMEN / Unknown Venipuncture / Unknown 06/19/2024 9:06 AM [facility] 06/19/2024 9:17 AM [facility] Aleks Aguilar MD LAB - HEMATOLOGY ORD ERABLES [facility] [address] [place] [phone], [facility] [phone] * MARY JANE DIRECT C3 (06/19/2024 9:06 AM [facility]) Anti-C3 Mary Jane NEG 06/20/2024 12:20 AM [facility]3] BLOOD BANK LAB Blood Bank BLOOD SPECIMEN / Unknown Venipuncture / Unknown 06/19/2024 9:06 AM [facility] 06/19/2024 9:23 AM [facility] Aleks Aguilar MD LAB - BLOOD BANK ORD ERABLES [facility] [address] [place] [address], [place] [phone] * PTT [facility] (06/19/2024 9:06 AM [facility]) APTT 28.2 23.0 - 38.4 Seconds 06/19/2024 9:[address] [facility] Comment:Suggested therapeuti c range for full dose I.V. unfractionated heparin therapy for venous thromboembolism is 71 to 109 seconds. Blood BLOOD SPECIMEN / Unknown Venipuncture / Unknown 06/19/2024 9:06 AM [facility] 06/19/2024 9:16 AM [facility] Aleks Aguilar MD LAB - COAGULATION OR DERABLES Performing Organization Address [facility] Co de Phone Number [facility] [address] [place] [address], [facility] [phone] * PT-INR [facility] (06/19/2024 9:06 AM [facility]) PT 12.6 12.1 - 14.8 Seconds 06/19/2024 9:[address] [facility] INR 1.0 See Comment 06/19/2024 9:[address] [facility] Comment:The suggested therap eutic range for standard coumadin (warfarin) therapy is an INR of 2.0-3.0. For high-risk patients (Mechanical Mitral Valve Prosthesis, etc.), the suggested prophylactic therapeutic range is an INR of 2.5-3.5. Blood BLOOD SPECIMEN / Unknown Venipuncture / Unknown 06/19/2024 9:06 AM [facility] 06/19/2024 9:16 AM [facility] Aleks Aguilar MD LAB - COAGULATION OR DERABLES Performing Organization Address [facility] Co de Phone Number [facility] [address] [place] [address], [facility] [phone] * MARY JANE DIRECT IGG (06/19/2024 9:06 AM [facility]) IgG Mary Jane NEG 06/20/2024 12:20 AM [facility]3] BLOOD BANK LAB Blood Bank BLOOD SPECIMEN / Unknown Venipuncture / Unknown 06/19/2024 9:06 AM [facility] 06/19/2024 9:23 AM [facility] Aleks Aguilar MD LAB - BLOOD BANK ORD ERABLES Performing Organization Address [facility]/ZIP Co de Phone Number [facility] [address] [place] [address], [place] [phone] * TYPE + SCREEN PANEL (06/19/2024 9:06 AM [facility]) Antibody Screen POS 10:13 AM [facility] ABO Rh O POS 06/19/2024 10:13 AM [facility] BLOOD [facility] LAB Blood Bank BLOOD SPECIMEN / Unknown Venipuncture / Unknown 06/19/2024 9:06 AM [facility] 06/19/2024 9:23 AM [facility] Aleks Aguilar MD LAB - BLOOD BANK ORD ERABLES Performing Organization Address [facility] Co de Phone Number [facility] [address] [place] [phone], [facility] [phone] * MARY JANE DIRECT (06/19/2024 9:06 AM [facility]) Direct Mary Jane (PRO) NEG 06/19/2024 12:10 PM [facility] BLOOD [facility] LAB Blood Bank BLOOD SPECIMEN / Unknown Venipuncture / Unknown 06/19/2024 9:06 AM [facility] 06/19/2024 9:23 AM [facility] Aleks Aguilar MD LAB - BLOOD BANK ORD ERABLES Performing Organization Address [facility]/ZIP Co de Phone Number [facility] [address] [place] [phone], [place] [phone] * ANTIBODY IDENTIFICATION (06/19/2024 9:06 AM [facility]) Antibody 1 POS, Anti-JkA 06/20/2024 12:15 AM [facility] BLOOD BANK LAB Blood Bank BLOOD SPECIMEN / Unknown Venipuncture / Unknown 06/19/2024 9:06 AM [facility] 06/19/2024 9:23 AM [facility] Aleks Aguilar MD LAB - BLOOD BANK ORD ERABLES [facility] [address] [place] [address], [facility] [phone] * (ABNORMAL) CBC W AUTO DIFFERENTIAL (06/19/2024 9:06 AM [facility]) WBC 5.9 4.0 - 10.7 x10E9/L 06/19/2024 9:[address] [facility] RBC Count 5.28(H) 3.90 - 5.20 x10E12/L 06/19/2024 9:[address] [facility] Hemoglobin 14.8 11.9 - 15.8 g/dL 06/19/2024 9:[address] [facility] Hematocrit 43.6 34.8 - 46.1 % 06/19/2024 9:[address] [facility] MCV 82.6 80.0 - 98.0 fL 06/19/2024 9:[address] [facility] MCH 28.0 26.7 - 33.6 pg 06/19/2024 9:[address] [facility] MCHC 33.9 31.7 - 36.3 g/dL 06/19/2024 9:[address] [facility] RDW-CV 13.1 11.3 - 14.8 % 06/19/2024 9:[address] [facility] Platelet Count 208 150 - 420 x10E9/L 06/19/2024 9:[address] [facility] MPV 10.1 7.8 - 11.4 fL 06/19/2024 9:[address] [facility] Neutrophil % 59.2 41.0 - 74.0 % 06/19/2024 9:[address] [facility] Lymphocyte % 31.2 17.0 - 47.0 % 06/19/2024 9:[address] [facility] Monocyte % 7.8 3.0 - 11.0 % 06/19/2024 9:[address] [facility] Eosinophil % 1.2 0.0 - 7.0 % 06/19/2024 9:[address] [facility] Basophil % 0.3 0.0 - 1.6 % 06/19/2024 9:[address] [facility] Immature Granulocytes % 0.3 0.0 - 1.0 % 06/19/2024 9:[address] [facility] Neutrophil Absolute 3.47 1.60 - 7.50 x10E9/L 06/19/2024 9:[address] [facility] Lymphocyte Absolute 1.83 1.00 - 4.40 x10E9/L 06/19/2024 9:[address] [facility] Monocyte Absolute 0.46 0.15 - 1.00 x10E9/L 06/19/2024 9:[address] [facility] Eosinophil Absolute 0.07 0.00 - 0.60 x10E9/L 06/19/2024 9:[address] [facility] Basophil Absolute 0.02 0.00 - 0.13 x10E9/L 06/19/2024 9:[address] [facility] Blood BLOOD SPECIMEN / Unknown Venipuncture / Unknown 06/19/2024 9:06 AM [facility] 06/19/2024 9:21 AM [facility] Aleks Aguilar MD LAB - HEMATOLOGY ORD ERABLES [facility] [address] [place] [phone], [facility] [phone] * (ABNORMAL) BASIC METABOLIC PANEL (CALCIUM TOTAL) (06/19/2024 9:06 AM [facility]) BUN 17 7 - 26 mg/dL 06/19/2024 9:[address] [facility] Creatinine 0.79 0.56 - 0.96 mg/dL 06/19/2024 9:[address] [facility] Sodium 136 136 - 145 mmol/L 06/19/2024 9:[address] [facility] Potassium 4.5 3.5 - 4.5 mmol/L 06/19/2024 9:[address] [facility] Chloride 108(H) 98 - 107 mmol/L 06/19/2024 9:[address] [facility] CO2 23 22 - 29 mmol/L 06/19/2024 9:[address] [facility] Glucose 88 70 - 99 mg/dL 06/19/2024 9:[address] [facility] Calcium 9.1 8.4 - 10.2 mg/dL 06/19/2024 9:[address] [facility] Anion Gap 5(L) 6 - 16 06/19/2024 9:[address] [facility] BUN/Creatinine Ratio 22 7 - 23 06/19/2024 9:[address] [facility] Osmolality Calculated 283 275 - 295 mOsm/kg 06/19/2024 9:[address] [facility] eGFR by CKD-EPI >90 >=90 mL/min/1.7 3 m2 06/19/2024 9:[address] [facility] Blood BLOOD SPECIMEN / Unknown Venipuncture / Unknown 06/19/2024 9:06 AM [facility] 06/19/2024 9:21 AM [facility] Aleks Aguilar MD LAB - CHEMISTRY [place] Performing Organization Address [facility] de Phone Number [address] [address], [facility] [phone] * HCG BETA BLOOD QUANTITATIVE (06/19/2024 9:06 AM [facility]) Beta-hCG Total Quantitative <3 mIU/mL 06/19/2024 9:[address] [facility] Comment: HCG Numeric Result Interpretation: Non- Females: < 5 mIU/mL Post-Menopausal Females: < 7 mIU/mL This assay is cleared for use in the early detection of only. It is not approved for any other uses such as tumor marker screening, tumor marker monitoring, etc. and should not be used for any other purposes. Blood BLOOD SPECIMEN / Unknown Venipuncture / Unknown 06/19/2024 9:06 AM [facility] 06/19/2024 9:21 AM [facility] Aleks Aguilar MD LAB - CHEMISTRY [place] Performing Organization Address [facility]/ZIP Co de Phone Number [address] [address], [place] [phone] * ALCOHOL ETHYL BLOOD (06/19/2024 9:06 AM [facility]) Ethanol (mg/dL) <10 <10 mg/dL 9:[address] [facility] Ethanol Calculated (g/dL) <0.010 <=0.010 g/dL 06/19/2024 9:[address] [facility] Blood BLOOD SPECIMEN / Unknown Venipuncture / Unknown 06/19/2024 9:06 AM [facility] 06/19/2024 9:21 AM [facility] Narrative [facility] - 06/19/2024 9:51 AM [facility] Ethanol Interp <10: None Detected. Depression of SHIP PILOT DISPATCHER: >100 mg/dl Potentially Critical: >250 mg/dl Potentially Fatal >400 mg/dl Ethanol in the patient's blood will contribute to the osmolar gap. Ethanol's contribution to the osmolar gap can be estimated by dividing the concentration of ethanol in mg/dL by 4.6. This test is for clinical use only and does not equal a ESTEBAN for legal purposes. Aleks Aguilar MD LAB - CHEMISTRY [place] [facility] [address] [place] [phone], [facility] [phone] * XR CHEST 1VW PORTABLE (06/19/2024 8:50 AM [facility]) Anatomical Region Laterality Modality Chest Digital Radiogra phy 06/19/2024 9:07 AM [facility] Narrative 06/19/2024 9:18 AM [facility] PROCEDURE: XR CHEST 1VW PORTABLE, DATE/TIME OF EXAM: 06/19/2024 8:50 AM, LOCATION [facility] INDICATION: Trauma ADDITIONAL CLINICAL INFORMATION: Ordering Provider Reason For Exam: Technologist Note: Additional: COMPARISON: None. TECHNIQUE: Frontal radiograph of the chest. FINDINGS/IMPRESSION: Cardiomediastinal silhouette appears normal. No pleural effusion or pneumothorax. No pulmonary consolidation. No acute osseous abnormality. Bilateral breast implants. Report dictated by John Paul Fink MD, (Pss Delivery Professional). I, Marya Ferrara MD have personally reviewed and interpreted this examination/study. > Interpreting Provider: Marya Ferrara MD on 06/19/2024 9:18 AM Procedure Note Marya Ferrara MD - 06/19/2024 PROCEDURE: XR CHEST 1VW PORTABLE, DATE/TIME OF EXAM: 06/19/2024 8:50 AM, LOCATION [facility] INDICATION: Trauma ADDITIONAL CLINICAL INFORMATION: Ordering Provider Reason For Exam: Technologist Note: Additional: COMPARISON: None. TECHNIQUE: Frontal radiograph of the chest. FINDINGS/IMPRESSION: Cardiomediastinal silhouette appears normal. No pleural effusion or pneumothorax. No pulmonary consolidation. No acute osseous abnormality. Bilateral breast implants. Report dictated by John Paul Fink MD, ([employer]ss Delivery Professional). Marya Jiménez MD have personally reviewed and interpreted this examination/study. > Interpreting Provider: Marya Ferrara MD on 06/19/2024 9:18 AM Aleks Aguilar MD DIAGNOSTIC IMAGING O RDERABLES * XR PELVIS 1 OR 2VW (06/19/2024 8:50 AM [facility]) Anatomical Region Laterality Modality Pelvis Digital Radiogra phy 06/19/2024 9:06 AM [facility] Impressions 06/19/2024 9:15 AM [facility] IMPRESSION: No fracture or dislocation. > Dictated by John Paul Fink MD, (student life vice president). Marya Jiménez MD have personally reviewed and interpreted this examination/study. > Interpreting Provider: Marya Ferrara MD on 06/19/2024 9:15 AM Narrative 06/19/2024 9:15 AM [facility] PROCEDURE: XR PELVIS 1 OR 2VW, DATE/TIME OF EXAM: 06/19/2024 8:50 AM, LOCATION [facility] INDICATION: Trauma Fracture suspected ADDITIONAL CLINICAL INFORMATION: Ordering Provider Reason For Exam: Technologist Note: Additional: COMPARISON: None. TECHNIQUE: AP views of the pelvis. FINDINGS: No acute fracture is identified. The femoral heads are well-seated in their respective acetabulum. Joint spaces are preserved. Pubic symphysis is intact. The osseous architecture and density are normal. The SI joints are intact. Procedure Note Marya Ferrara MD - 06/19/2024 PROCEDURE: XR PELVIS 1 OR 2VW, DATE/TIME OF EXAM: 06/19/2024 8:50 AM, LOCATION [facility] INDICATION: Trauma Fracture suspected ADDITIONAL CLINICAL INFORMATION: Ordering Provider Reason For Exam: Technologist Note: Additional: COMPARISON: None. TECHNIQUE: AP views of the pelvis. FINDINGS: No acute fracture is identified. The femoral heads are well-seated intheir respective acetabulum. Joint spaces are preserved. Pubic symphysis is intact. The osseous architecture and density are normal. The SI jointsare intact. IMPRESSION: No fracture or dislocation. > Dictated by John Paul Fink MD, (student life vice president). I, Marya Ferrara MD have personally reviewed and interpreted this examination/study. > Interpreting Provider: Marya Ferrara MD on 06/19/2024 9:15 AM Aleks Aguilar MD DIAGNOSTIC IMAGING O RDERABLES from Last 3 Months Care Teams Local Delivery Truck Driver Relationship Specialty Start Date End Date Helen Garber, STOCK MOVER-PSYCHOTHERAPIST SOCIAL WORKER [address] [id number] PCP - General Nurse Practitioner 06/19/24
--- OUTSIDE RECORDS SUMMARY | 2024-06-22 01:45 | XMS_ITS | Clinical Summary ---
Author Organization [facility] Address [address] [address] [place] [phone] Phone Care Team Providers Care Special Needs Bus Driver Name Role Phone Unavailable Primary Care Provider [...] Health Maintenance Due Date Last Done Comments DTAP/TDAP/TD VACCINES (1 - Tdap) 08/12/2010 HEPATITIS B VACCINES (1 of 3 - 19+ 3-dose series) 08/12/2010 CERVICAL CANCER SCREENING 08/12/2021 INFLUENZA VACCINE (#1) 2023 HPV VACCINES Aged Out No longer eligi ble based on patient's age to complete this topic Insurance [facility] [id number] [facility]
--- OUTSIDE RECORDS SUMMARY | 2024-06-22 01:45 | XMS_ITS | Patient Health Summary ---
Author Organization [facility] Address [address] [place] [address] Care Team Providers Care Registration Coordinator Name Role Phone Helen Garber APRN-OIL DISTRIBUTOR TENDER Primary Care Provider Note from [facility],non-owned Affiliates and Associated Physician Practices is amultiple site organization consisting of ambulatory clinics and hospital sitesin [place], [place], [place] and [place]. This disclosure is being madepursuant to the Care Everywhere program and may not contain all information available regarding this patient. 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 Dyspnea, unspecified 11/24/2020 Supervision of high-risk of young lee banegasavida 02/20/2013 Resolved Problems Problem Noted Date Diagnosed [...] Comments Blood Pressure 120/85 06/19/2024 3:10 PM COLOR MATCHER Pulse 82 06/19/2024 3:10 PM COLOR MATCHER Temperature 36.6 C (97.8 F) 06/19/2024 3:10 PM COLOR MATCHER Respiratory Rate 16 06/19/2024 3:10 PM COLOR MATCHER Oxygen Saturation 98% 06/19/2024 3:10 PM COLOR MATCHER Inhaled Oxygen Concentration - - Weight 96.2 kg (212 lb 1.3 oz) 06/19/2024 8:34 A M COLOR MATCHER Height 170.2 cm (5' 7.01 ) 06/19/2024 8:34 AM CS T Body Mass Index 33.21 06/19/2024 8:34 AM COLOR MATCHER Procedures * XR KNEE LEFT 2VW OR LESS(Performed 06/19/2024) Performed for Trauma * URINE DRUG SCREEN IMMUNOASSAY(Performed 06/19/2024) * CT LUMBAR SPINE WO CONTRAST(Performed 06/19/2024) Performed for Trauma * CT THORACIC SPINE WO CONTRAST(Performed 06/19/2024) Performed for Trauma * CT CHEST ABDOMEN PELVIS W CONT(Performed 06/19/2024) Performed for Trauma * CT CERVICAL SPINE WO CONTRAST(Performed 06/19/2024) Performed for Trauma * CT HEAD WO CONTRAST(Performed 06/19/2024) Performed for Trauma * MARY JANE DIRECT C3(Performed 06/19/2024) * MARY JANE DIRECT IGG(Performed 06/19/2024) * ANTIBODY IDENTIFICATION(Performed 06/19/2024) * MARY JANE DIRECT(Performed 06/19/2024) * TYPE + SCREEN PANEL(Performed 06/19/2024) * TEG 6S PLATELET MAPPING(Performed 06/19/2024) * TEG 6 GLOBAL HEMOSTASIS W/ LYSIS(Performed 06/19/2024) * PTT [facility](Performed 06/19/2024) * PT-INR [facility](Performed 06/19/2024) * HCG BETA BLOOD QUANTITATIVE(Performed 06/19/2024) * CBC W AUTO DIFFERENTIAL(Performed 06/19/2024) * BASIC METABOLIC PANEL (CALCIUM TOTAL)(Performed 06/19/2024) * ALCOHOL ETHYL BLOOD(Performed 06/19/2024) * XR PELVIS 1 OR 2VW(Performed 06/19/2024) Performed for Trauma * XR CHEST 1VW PORTABLE(Performed 06/19/2024) Performed for Trauma * DERMATOPATHOLOGY(Performed 12/26/2023) * SONOGRAM - COMPLETE(Performed 11/26/2020) Performed for Crohn's disease with complication, unspecified gastrointestinal tract location (HCC),Fifth (HCC) Results * XR Knee Left 2Vw or Less (06/19/2024 1:21 PM COLOR MATCHER) Anatomical Region Laterality Modality Lower Extremity Digital Radiogra phy 06/19/2024 2:12 PM COLOR MATCHER Impressions 06/19/2024 2:15 PM COLOR MATCHER IMPRESSION: No acute fracture or dislocation identified. Report dictated by John Paul Fink MD, (residential program manager). I, Marya Ferrara MD have personally reviewed and interpreted this examination/study. > Interpreting Provider: Marya Ferrara MD on 06/19/2024 2:15 PM Narrative 06/19/2024 2:15 PM COLOR MATCHER PROCEDURE: XR KNEE LEFT 2VW OR LESS, DATE/TIME OF EXAM: 06/19/2024 1:21 PM, LOCATION [facility] INDICATION: T14.90XA: Trauma ADDITIONAL CLINICAL INFORMATION: Ordering [...] LESS, DATE/TIME OF EXAM: 06/19/2024 1:21PM, LOCATION [facility] INDICATION: T14.90XA: Trauma ADDITIONAL CLINICAL INFORMATION: Ordering Provider Reason For Exam: Trauma Technologist Note: Additional: COMPARISON: None. FINDINGS: The osseous structures are intact and well aligned without acutefracture or dislocation. The knee joint space is preserved. No joint effusion is seen. Bone density and texture are normal. IMPRESSION: No acute fracture or dislocation identified. Report dictated by John Paul Fink MD, (residential program manager). I, Marya Ferrara MD have personally reviewed and interpreted this examination/study. > Interpreting Provider: Marya Ferrara MD on 06/19/2024 2:15 PM Marylu Simpson MD DIAGNOSTIC IMAGING O RDERABLES * URINE DRUG SCREEN IMMUNOASSAY (06/19/2024 10:13 AM [facility]) Amphetamines Screen Urine Negative Negative: < 1000 ng/mL 06/19/2024 11:07 AM [facility] Barbiturates Screen Urine Negative Negative: < 200 ng/mL 06/19/2024 11:07 AM [facility] Benzodiazepine Screen Urine Negative Negative: < 200 ng/mL 06/19/2024 11:07 AM [facility] Opiates Urine Negative Negative: < 300 ng/mL 06/19/2024 11:07 AM [facility] Cocaine Metabolites Urine Negative Negative: < 300 ng/mL 06/19/2024 11:07 AM [facility] Phencyclidine Screen Urine Negative Negative: < 25 ng/ml 06/19/2024 11:07 AM [facility] Cannabinoids Screen Urine Negative Negative: <50 ng/mL 06/19/2024 11:07 AM [facility] Methadone Screen Urine Negative Negative: < 300 ng/mL 06/19/2024 11:07 AM [facility] Fentanyl Screen Urine Negative Negative: <1.5 ng/mL 06/19/2024 11:07 AM [facility] Urine URINE / Unknown Collection / Unknown 06/19/2024 10:13 AM COLOR MATCHER 06/19/2024 10:20 AM COLOR MATCHER Narrative [facility] - 06/19/2024 11:07 AM COLOR MATCHER The Urine Toxicology Screening Panel does not screen for Propoxyphene, Meprobamate, Carisoprodol, Trazodone, [id number] medications and/or volatiles (Acetone, Isopropanol, Methanol or Ethylene Glycol). Ethanol, Salicylate, Acetaminophen, Tricyclic Antidepressants and several therapeutic drugs may be individually assayed in serum or plasma specimen. Toxicology testing by the [facility] is an aid to medical diagnosis and treatment of patients. No documented chain of custody was maintained. Results are intended to be used for clinical purposes only. Aleks Aguilar MD LAB - URINE CHEMISTR Y ORDERABLES [address] [address], [facility] [phone] * CT CHEST ABDOMEN PELVIS W CONT - Abdomen-pelvis trauma, blunt or penetrating (06/19/2024 9:09 AM COLOR MATCHER) Anatomical Region Laterality Modality Chest, Abdomen, Pelvis Computed Tomography 06/19/2024 9:05 AM COLOR MATCHER Impressions 06/19/2024 5:40 PM COLOR MATCHER Impression: 1.There is a soft tissue contusion along the medial aspect of the right breast. 2.No acute visceral, vascular, or osseus injury identified in the chest, abdomen, or pelvis. > Dictated by Camilo Noble MD (residential program manager). > Dictated by Camilo Noble MD (Dermatology Physician) 06/19/2024 9:05 AM ISelvin MD have personally reviewed and interpreted this examination/study. > Interpreting Provider: Selvin Duncan MD on 06/19/2024 5:40 PM Narrative 06/19/2024 5:40 PM COLOR MATCHER PROCEDURE: CT CHEST ABDOMEN PELVIS W CONT, DATE/TIME OF EXAM: 06/19/2024 9:10 AM, LOCATION [facility] INDICATION: Trauma ADDITIONAL CLINICAL INFORMATION: Ordering Provider [...] DATE/TIME OF EXAM: 06/19/2024 9:10 AM, LOCATION [facility] INDICATION: Trauma ADDITIONAL CLINICAL INFORMATION: Ordering Provider [...] pelvis. > Dictated by Camilo Noble MD (residential program manager). > Dictated by Camilo Noble MD (Dermatology Physician) 06/19/2024 9:05 AM ISelvin MD have personally reviewed and interpreted this examination/study. > Interpreting Provider: Selvin Duncan MD on 06/19/2024 5:40 PM [address]ks Aguilar MD CT ORDERABLES * CT LUMBAR SPINE WO CONTRAST - T/L-spine trauma, Spine fracture (06/19/2024 9:09 AM COLOR MATCHER) Anatomical Region Laterality Modality Spine Computed Tomogra phy 06/19/2024 9:32 AM COLOR MATCHER Impressions 06/19/2024 12:08 PM COLOR MATCHER IMPRESSION: 1. No evidence of acute fracture in the cervical, thoracic, or lumbar spine. The report is dictated by Matt Arredondo MD, (residential program manager) Deion Jiménez MD have personally reviewed and interpreted this examination/study. > Interpreting Provider: Deion Valencia MD on 06/19/2024 12:08 PM Narrative 06/19/2024 12:08 PM COLOR MATCHER PROCEDURE: CT CERVICAL SPINE WO CONTRAST, CT THORACIC SPINE WO CONTRAST, CT LUMBAR SPINE WO CONTRAST, DATE/TIME OF EXAM: 06/19/2024 9:10 AM, LOCATION [facility] INDICATION: Trauma ADDITIONAL CLINICAL INFORMATION: Ordering Provider [...] CONTRAST, DATE/TIME OF EXAM: 06/19/2024 9:10 AM,LOCATION [facility] INDICATION: Trauma ADDITIONAL CLINICAL INFORMATION: Ordering Provider [...] report is dictated by Matt Arredondo MD, (residential program manager) I, Deion Valencia MD have personally reviewed and interpreted this examination/study. > Interpreting Provider: Deion Valencia MD on 06/19/2024 12:08 PM [address]ks Aguilar MD CT ORDERABLES * CT THORACIC SPINE WO CONTRAST - T/L-spine trauma, spine fracture (06/19/2024 9:09 AM COLOR MATCHER) Anatomical Region Laterality Modality Spine Computed Tomogra phy 06/19/2024 9:32 AM COLOR MATCHER Impressions 06/19/2024 12:08 PM COLOR MATCHER IMPRESSION: 1. No evidence of acute fracture in the cervical, thoracic, or lumbar spine. The report is dictated by Matt Arredondo MD, (residential program manager) I, Deion Valencia MD have personally reviewed and interpreted this examination/study. > Interpreting Provider: Deion Valencia MD on 06/19/2024 12:08 PM Narrative 06/19/2024 12:08 PM COLOR MATCHER PROCEDURE: CT CERVICAL SPINE WO CONTRAST, CT THORACIC SPINE WO CONTRAST, CT LUMBAR SPINE WO CONTRAST, DATE/TIME OF EXAM: 06/19/2024 9:10 AM, LOCATION [facility] INDICATION: Trauma ADDITIONAL CLINICAL INFORMATION: Ordering Provider [...] CONTRAST, DATE/TIME OF EXAM: 06/19/2024 9:10 AM,LOCATION [facility] INDICATION: Trauma ADDITIONAL CLINICAL INFORMATION: Ordering Provider [...] report is dictated by Matt Arredondo MD, (residential program manager) Deion Jiménez MD have personally reviewed and interpreted this examination/study. > Interpreting Provider: Deion Valencia MD on 06/19/2024 12:08 PM Aleks Aguilar MD CT ORDERABLES * CT CERVICAL SPINE WO CONTRAST - C-Spine Trauma, Spine fracture (06/19/2024 9:09 AM COLOR MATCHER) Anatomical Region Laterality Modality Spine Computed Tomogra phy 06/19/2024 9:32 AM COLOR MATCHER Impressions 06/19/2024 12:08 PM COLOR MATCHER IMPRESSION: 1. No evidence of acute fracture in the cervical, thoracic, or lumbar spine. The report is dictated by Matt Arredondo MD, (residential program manager) Deion Jiménez MD have personally reviewed and interpreted this examination/study. > Interpreting Provider: Deion Valencia MD on 06/19/2024 12:08 PM Narrative 06/19/2024 12:08 PM COLOR MATCHER PROCEDURE: CT CERVICAL SPINE WO CONTRAST, CT THORACIC SPINE WO CONTRAST, CT LUMBAR SPINE WO CONTRAST, DATE/TIME OF EXAM: 06/19/2024 9:10 AM, LOCATION [facility] INDICATION: Trauma ADDITIONAL CLINICAL INFORMATION: Ordering Provider [...] CONTRAST, DATE/TIME OF EXAM: 06/19/2024 9:10 AM,LOCATION [facility] INDICATION: Trauma ADDITIONAL CLINICAL INFORMATION: Ordering Provider [...] report is dictated by Matt Arredondo MD, (residential program manager) Deion Jiménez MD have personally reviewed and interpreted this examination/study. > Interpreting Provider: Deion Valencia MD on 06/19/2024 12:08 PM Aleks Aguilar MD CT ORDERABLES * CT HEAD WO CONTRAST - Head Trauma, CSF leak, mental status changes (06/19/2024 9:09 AM COLOR MATCHER) Anatomical Region Laterality Modality Head Computed Tomogra phy 06/19/2024 9:13 AM COLOR MATCHER Impressions 06/19/2024 11:06 AM COLOR MATCHER IMPRESSION: 1. No acute intracranial process. The report is dictated by Matt Arredondo MD, (residential program manager) Lulú Jiménez MD have personally reviewed and interpreted this examination/study. > Interpreting Provider: Lulú An MD on 06/19/2024 11:06 AM Narrative 06/19/2024 11:06 AM COLOR MATCHER PROCEDURE: CT HEAD WO CONTRAST, DATE/TIME OF EXAM: 06/19/2024 9:10 AM, LOCATION [facility] INDICATION: Trauma ADDITIONAL CLINICAL INFORMATION: Ordering Provider [...] DATE/TIME OF EXAM: 06/19/2024 9:10 AM, LOCATION [facility] INDICATION: Trauma ADDITIONAL CLINICAL INFORMATION: Ordering Provider [...] report is dictated by Matt Arredondo MD, (residential program manager) I, Lulú An MD have personally reviewed and interpreted this examination/study. > Interpreting Provider: Lulú An MD on 06/19/2024 11:06 AM Aleks Aguilar MD CT ORDERABLES * TEG 6 GLOBAL HEMOSTASIS W/ LYSIS (06/19/2024 9:06 AM COLOR MATCHER) [facility] Citrated Kaolin R (Reaction Time) 6.6 4.6 - 9.1 min 06/19/2024 10:22 AM COLOR MATCHER [facility] Citrated Kaolin LY30 (Lysis) 0.1 0.0 - 2.6 % 06/19/2024 10:22 AM [facility] Citrated Functional Fibrinogen MA (Max Amplitude) 17.1 15.0 - 32.0 mm 06/19/2024 10:22 AM [facility] Citrated RapidTEG MA (Max Amplitude) 56.4 52.0 - 70.0 mm 06/19/2024 10:22 AM [facility] Blood BLOOD SPECIMEN / Unknown Venipuncture / Unknown 06/19/2024 9:06 AM COLOR MATCHER 06/19/2024 9:17 AM [facility] Aleks Aguilar MD LAB - HEMATOLOGY ORD ERABLES [address] [address], [facility] [phone] * TEG 6S PLATELET MAPPING (06/19/2024 9:06 AM [facility]) TEGPLM (Max Amplitude) Koalin 57.7 53.0 - 68.0 mm 06/19/2024 10:18 AM [facility] TEGPLM (Max Amplitude) ACTF 8.7 2.0 - 19.0 mm 06/19/2024 10:18 AM [facility] TEGPLM (Max Amplitude) ADP 61.4 45.0 - 69.0 mm 06/19/2024 10:18 AM [facility] TEGPLM (Max Amplitude) AA 58.1 51.0 - 71.0 mm 06/19/2024 10:18 AM [facility] TEGPLM %Inhibition ADP 0.0 0.0 - 17.0 % 06/19/2024 10:18 AM [facility] TEGPLM %Inhibition AA 0.0 0.0 - 11.0 % 06/19/2024 10:18 AM [facility] TEGPLM %Aggregation ADP 100.0 83.0 - 100.0 % 06/19/2024 10:18 AM [facility] TEGPLM % Aggregation AA 100.0 89.0 - 100.0 % 06/19/2024 10:18 AM [facility] Blood BLOOD SPECIMEN / Unknown Venipuncture / Unknown 06/19/2024 9:06 AM COLOR MATCHER 06/19/2024 9:17 AM COLOR MATCHER Aleks Aguilar MD LAB - HEMATOLOGY ORD ERABLES Performing Organization Address City/[facility]/ZIP Co de Phone Number [facility] [address] [place] [phone], [facility] [phone] * MARY JANE DIRECT C3 (06/19/2024 9:06 AM COLOR MATCHER) Anti-C3 Mary Jane NEG 06/20/2024 12:20 AM [facility] BLOOD BANK LAB Blood Bank BLOOD SPECIMEN / Unknown Venipuncture / Unknown 06/19/2024 9:06 AM COLOR MATCHER 06/19/2024 9:23 AM COLOR MATCHER Aleks Aguilar MD LAB - BLOOD BANK ORD ERABLES Performing Organization Address [facility]/ZIP Co de Phone Number [facility] BLOOD BANK LAB [address] [place] [phone], [facility] [phone] * PTT [facility] (06/19/2024 9:06 AM COLOR MATCHER) APTT 28.2 23.0 - 38.4 Seconds 06/19/2024 9:42 AM [facility] Comment:Suggested therapeuti c range for full dose I.V. unfractionated heparin therapy for venous thromboembolism is 71 to 109 seconds. Blood BLOOD SPECIMEN / Unknown Venipuncture / Unknown 06/19/2024 9:06 AM COLOR MATCHER 06/19/2024 9:16 AM COLOR MATCHER Aleks Aguilar MD LAB - COAGULATION OR DERABLES Performing Organization Address City/[facility]/ZIP Co de Phone Number [address] [address], [place] [phone] * PT-INR [facility] (06/19/2024 9:06 AM COLOR MATCHER) PT 12.6 12.1 - 14.8 Seconds 06/19/2024 9:42 AM [facility] INR 1.0 See Comment 06/19/2024 9:42 AM [facility] Comment:The suggested therap eutic range for standard coumadin (warfarin) therapy is an INR of 2.0-3.0. For high-risk patients (Mechanical Mitral Valve Prosthesis, etc.), the suggested prophylactic therapeutic range is an INR of 2.5-3.5. Blood BLOOD SPECIMEN / Unknown Venipuncture / Unknown 06/19/2024 9:06 AM COLOR MATCHER 06/19/2024 9:16 AM COLOR MATCHER Aleks Aguilar MD LAB - COAGULATION OR DERABLES Performing Organization Address [facility]/ZIP Co de Phone Number [facility] [address] [place] [phone], [place] [phone] * MARY JANE DIRECT IGG (06/19/2024 9:06 AM COLOR MATCHER) IgG Mary Jane NEG 06/20/2024 12:20 AM COLOR MATCHER [facility] BLOOD BANK LAB Blood Bank BLOOD SPECIMEN / Unknown Venipuncture / Unknown 06/19/2024 9:06 AM COLOR MATCHER 06/19/2024 9:23 AM COLOR MATCHER Aleks Aguilar MD LAB - BLOOD BANK ORD ERABLES Performing Organization Address [facility] Co de Phone Number [facility] BLOOD BANK LAB [address] [place] [phone], [place] [phone] * TYPE + SCREEN PANEL (06/19/2024 9:06 AM COLOR MATCHER) Antibody Screen POS 10:13 AM COLOR MATCHER [facility] BLOOD BANK LAB ABO Rh O POS 06/19/2024 10:13 AM [facility] BLOOD BANK LAB Blood Bank BLOOD SPECIMEN / Unknown Venipuncture / Unknown 06/19/2024 9:06 AM COLOR MATCHER 06/19/2024 9:23 AM COLOR MATCHER Aleks Aguilar MD LAB - BLOOD BANK ORD ERABLES Performing Organization Address City/[facility]/ZIP Co de Phone Number [facility] BLOOD [facility]ANK LAB [address] [place] [phone], [place] [phone] * MARY JANE DIRECT (06/19/2024 9:06 AM COLOR MATCHER) Direct Mary Jane (PRO) NEG 06/19/2024 12:10 PM COLOR MATCHER [facility] BLOOD BANK LAB Blood Bank BLOOD SPECIMEN / Unknown Venipuncture / Unknown 06/19/2024 9:06 AM COLOR MATCHER 06/19/2024 9:23 AM COLOR MATCHER Aleks Aguilar MD LAB - BLOOD BANK ORD ERABLES [facility] BLOOD BANK LAB [address] [place] [address], [facility] [phone] * ANTIBODY IDENTIFICATION (06/19/2024 9:06 AM COLOR MATCHER) Pathologist [facility] Antibody 1 POS, Anti-JkA 06/20/2024 12:15 AM COLOR MATCHER [facility] BLOOD BANK LAB Blood Bank BLOOD SPECIMEN / Unknown Venipuncture / Unknown 06/19/2024 9:06 AM COLOR MATCHER 06/19/2024 9:23 AM COLOR MATCHER Aleks Aguilar MD LAB - BLOOD BANK ORD ERABLES [facility] BLOOD BANK LAB [address] [place] [address], [facility] [phone] * (ABNORMAL) CBC W AUTO DIFFERENTIAL (06/19/2024 9:06 AM COLOR MATCHER) Pathologist [facility] WBC 5.9 4.0 - 10.7 x10E9/L 06/19/2024 9:30 AM [facility] RBC Count 5.28(H) 3.90 - 5.20 x10E12/L 06/19/2024 9:30 AM [facility] Hemoglobin 14.8 11.9 - 15.8 g/dL 06/19/2024 9:30 AM [facility] Hematocrit 43.6 34.8 - 46.1 % 06/19/2024 9:30 AM [facility] MCV 82.6 80.0 - 98.0 fL 06/19/2024 9:30 AM [facility] MCH 28.0 26.7 - 33.6 pg 06/19/2024 9:30 AM [facility] MCHC 33.9 31.7 - 36.3 g/dL 06/19/2024 9:30 AM [facility] RDW-CV 13.1 11.3 - 14.8 % 06/19/2024 9:30 AM [facility] Platelet Count 208 150 - 420 x10E9/L 06/19/2024 9:30 AM [facility] MPV 10.1 7.8 - 11.4 fL 06/19/2024 9:30 AM [facility] Neutrophil % 59.2 41.0 - 74.0 % 06/19/2024 9:30 AM [facility] Lymphocyte % 31.2 17.0 - 47.0 % 06/19/2024 9:30 AM [facility] Monocyte % 7.8 3.0 - 11.0 % 06/19/2024 9:30 AM [facility] Eosinophil % 1.2 0.0 - 7.0 % 06/19/2024 9:30 AM [facility] Basophil % 0.3 0.0 - 1.6 % 06/19/2024 9:30 AM [facility] Immature Granulocytes % 0.3 0.0 - 1.0 % 06/19/2024 9:30 AM [facility] Neutrophil Absolute 3.47 1.60 - 7.50 x10E9/L 06/19/2024 9:30 AM [facility] Lymphocyte Absolute 1.83 1.00 - 4.40 x10E9/L 06/19/2024 9:30 AM [facility] Monocyte Absolute 0.46 0.15 - 1.00 x10E9/L 06/19/2024 9:30 AM [facility] Eosinophil Absolute 0.07 0.00 - 0.60 x10E9/L 06/19/2024 9:30 AM [facility] Basophil Absolute 0.02 0.00 - 0.13 x10E9/L 06/19/2024 9:30 AM [facility] Blood BLOOD SPECIMEN / Unknown Venipuncture / Unknown 06/19/2024 9:06 AM COLOR MATCHER 06/19/2024 9:21 AM COLOR MATCHER Aleks Aguilar MD LAB - HEMATOLOGY ELAINE GALLEGOS [facility] [address] [place] [address], [facility] [phone] * (ABNORMAL) BASIC METABOLIC PANEL (CALCIUM TOTAL) (06/19/2024 9:06 AM COLOR MATCHER) BUN 17 7 - 26 mg/dL 06/19/2024 9:51 AM [facility] Creatinine 0.79 0.56 - 0.96 mg/dL 06/19/2024 9:51 AM [facility] Sodium 136 136 - 145 mmol/L 06/19/2024 9:51 AM [facility] Potassium 4.5 3.5 - 4.5 mmol/L 06/19/2024 9:51 AM [facility] Chloride 108(H) 98 - 107 mmol/L 06/19/2024 9:51 AM [facility] CO2 23 22 - 29 mmol/L 06/19/2024 9:51 AM [facility] Glucose 88 70 - 99 mg/dL 06/19/2024 9:51 AM [facility] Calcium 9.1 8.4 - 10.2 mg/dL 06/19/2024 9:51 AM [facility] Anion Gap 5(L) 6 - 16 06/19/2024 9:51 AM [facility] BUN/Creatinine Ratio 22 7 - 23 06/19/2024 9:51 AM [facility] Osmolality Calculated 283 275 - 295 mOsm/kg 06/19/2024 9:51 AM [facility] eGFR by CKD-EPI >90 >=90 mL/min/1.7 3 m2 06/19/2024 9:51 AM [facility] Blood BLOOD SPECIMEN / Unknown Venipuncture / Unknown 06/19/2024 9:06 AM COLOR MATCHER 06/19/2024 9:21 AM COLOR MATCHER Aleks Aguilar MD LAB - CHEMISTRY [place] [address] [address], [facility] [phone] * HCG BETA BLOOD QUANTITATIVE (06/19/2024 9:06 AM [facility]) [facility] Beta-hCG Total Quantitative <3 mIU/mL 06/19/2024 9:57 AM [facility] Comment: HCG Numeric Result Interpretation: Non- Females: [...] Unknown Venipuncture / Unknown 06/19/2024 9:06 AM COLOR MATCHER 06/19/2024 9:21 AM [facility] Aleks Aguilar MD LAB - CHEMISTRY [place] [facility] Organization Address City/State/[facility] Co de Phone Number [address] [address], [facility] [phone] * ALCOHOL ETHYL BLOOD (06/19/2024 9:06 AM [facility]) [facility] Ethanol (mg/dL) <10 <10 mg/dL 9:51 AM [facility] Ethanol Calculated (g/dL) <0.010 <=0.010 g/dL 06/19/2024 9:51 AM [facility] Blood BLOOD SPECIMEN / Unknown Venipuncture / Unknown 06/19/2024 9:06 AM COLOR MATCHER 06/19/2024 9:21 AM [facility] Narrative [facility] - 06/19/2024 9:51 AM [facility] Ethanol Interp <10: None Detected. Depression of [place] CLOSER: >100 mg/dl Potentially Critical: >250 mg/dl Potentially [...] Aguilar MD LAB - CHEMISTRY [place] [address] [address], [facility] [phone] * XR CHEST 1VW PORTABLE (06/19/2024 8:50 AM COLOR MATCHER) Anatomical Region Laterality Modality Chest Digital Radiogra phy 06/19/2024 9:07 AM COLOR MATCHER Narrative 06/19/2024 9:18 AM COLOR MATCHER PROCEDURE: XR CHEST 1VW PORTABLE, DATE/TIME OF EXAM: 06/19/2024 8:50 AM, LOCATION [facility] INDICATION: Trauma ADDITIONAL CLINICAL INFORMATION: Ordering Provider Reason For Exam: Technologist Note: Additional: COMPARISON: None. TECHNIQUE: Frontal radiograph of the chest. FINDINGS/IMPRESSION: Cardiomediastinal silhouette appears normal. No pleural effusion or pneumothorax. No pulmonary consolidation. No acute osseous abnormality. Bilateral breast implants. Report dictated by John Paul Fink MD, (Dermatology Physician). Marya Jiménez MD have personally reviewed and interpreted this examination/study. > Interpreting Provider: Marya Ferrara MD on 06/19/2024 9:18 AM Procedure Note Marya Ferrara MD - 06/19/2024 PROCEDURE: XR CHEST 1VW PORTABLE, DATE/TIME OF EXAM: 06/19/2024 8:50 AM, LOCATION [facility] INDICATION: Trauma ADDITIONAL CLINICAL INFORMATION: Ordering Provider Reason For Exam: Technologist Note: Additional: COMPARISON: None. TECHNIQUE: Frontal radiograph of the chest. FINDINGS/IMPRESSION: Cardiomediastinal silhouette appears normal. No pleural effusion or pneumothorax. No pulmonary consolidation. No acute osseous abnormality. Bilateral breast implants. Report dictated by John Paul Fink MD, (Dermatology Physician). Marya Jiménez MD have personally reviewed and interpreted this examination/study. > Interpreting Provider: Marya Ferrara MD on 06/19/2024 9:18 AM Aleks Aguilar MD DIAGNOSTIC IMAGING O RDERABLES * XR PELVIS 1 OR 2VW (06/19/2024 8:50 AM COLOR MATCHER) Anatomical Region Laterality Modality Pelvis Digital Radiogra phy 06/19/2024 9:06 AM COLOR MATCHER Impressions 06/19/2024 9:15 AM COLOR MATCHER IMPRESSION: No fracture or dislocation. > Dictated by John Paul Fink MD, (residential program manager). Marya Jiménez MD have personally reviewed and interpreted this examination/study. > Interpreting Provider: Marya Ferrara MD on 06/19/2024 9:15 AM Narrative 06/19/2024 9:15 AM COLOR MATCHER PROCEDURE: XR PELVIS 1 OR 2VW, DATE/TIME OF EXAM: 06/19/2024 8:50 AM, LOCATION [facility] INDICATION: Trauma Fracture suspected ADDITIONAL CLINICAL INFORMATION: [...] DATE/TIME OF EXAM: 06/19/2024 8:50 AM, LOCATION [facility] INDICATION: Trauma Fracture suspected ADDITIONAL CLINICAL INFORMATION: [...] > Dictated by John Paul Fink MD, (residential program manager). Marya Jiménez MD have personally reviewed and interpreted this examination/study. > Interpreting Provider: Marya Ferrara MD on 06/19/2024 9:15 AM Aleks Aguilar MD DIAGNOSTIC IMAGING O RDERABLES * DERMATOPATHOLOGY (12/26/2023 12:00 AM CDT) Case Report Dermatopathology Report Case: [id number] Authorizing Provider: John Crenshaw MD Collected: 12/26/2023 12:00 AM Ordering Location: [facility] - Received: 12/27/2023 04:36 [...] characteristic determined by the Dermatopathology Laboratory at [facility], directed by Dr. Belle Prater. These tests need not be, and therefore are not, approved by the [place] Food and Drug Administration. The tests are used for clinical purposes. Billing Codes Specimen Charges Stain Charges 75635 1 63975 52539 1 1 4 4:58 PM CDT DERMATOPATHOLOGY LABORATORY Embedded Images 4 4:58 PM CDT DERMATOPATHOLOGY LABORATORY Pathology/Cytolog y TISSUE SPECIMEN FROM SKIN / Unknown 12/26/2023 12/27/2023 4:36 PM CDT John Crenshaw MD LAB - PATHOLOGY/CYTO LOGY ORDERABLES DERMATOPATHOLOGY LABORATORY [facility] Department of Dermatology [facility] [address] [place] [address], [address] [phone] * SONOGRAM - COMPLETE (11/26/2020 10:18 AM CDT) Anatomical Region Laterality Modality Other 11/26/2020 10:1 8 AM CDT Narrative 11/26/2020 12:49 PM CDT [facility] PHONE: FAX: Pat. Name: BRITTANY MCKINNEY Pat. No: [id number] Study Date: 11/26/2020 10:18am , Age: 04 1990, 30 Pregnancies: 5, Para 2 Height: 63 in Weight: 206 lb LMP: Unknown GA by US: 35w5d SYLVESTER: 12/26/2020 GA Selected: 34w1d (From Known E) SYLVESTER: 01/06/2021 Referring MD: Marbin Marc MD Business Analysis Analyst: Andreina Irving RDMS CPT4: 57796 BMI: 36.49 Hist/Ind: Crohn's Disease Class II Obesity (BMI 36) MEASUREMENTS & AGE GROWTH EVALUATION Measurement GA Range Srce %for GA Ratios ----- ---- ------- BPD 8.9 cm 36w0d (04w2n-86z1m) Hadl BPD 91% FL/BPD 0.74 (0.71 - 0.87) HC 32.9 cm 37w3d (92p2d-74g1h) Hadl HC 90% FL/AC 0.21 (0.20 - 0.24) AC 31.8 cm 35w5d (52l2f-29b1e) Hadl AC 90% HC/AC 1.04 (0.94 - 1.13) FL 6.6 cm 33w6d (28g2d-53b3d) Hadl FL 32% CI 0.76 (0.70 - 0.86) HL 5.9 cm 34w0d (48j8c-05m0y) Anmol HL 47% Cere 5.2 cm 37w3d (30c4f-60g9k) Brandon Cere>95 GA for sonogram 35w5d (60x2e-76d9l) Weight Estimate: based on (HL,BPD,HC,AC,FL,Cere) Avg Weight: [...] MD <Electronic Signature> 11/26/2020 12:47pm R Flip Marc MD MFM ORDERABLES Care Teams Registration Coordinator Relationship Specialty Start Date End Date Helen Garber, TUTORING CLINICIAN-OIL DISTRIBUTOR TENDER [address] [phone] PCP - General Nurse Practitioner 06/19/24
--- OUTSIDE RECORDS SUMMARY | 2024-06-22 01:45 | XMS_ITS | Encounter Summary ---
Author Organization [facility] Address [address] [facility] [place] [address] Care Team Providers Care Warp Knit Operator Name Role Phone Enoch Loyd MD Primary Care Provider [phone] Helen Garber Primary Care Provider Encounter Details Date Type Department Care Team (Late st Contact Info) Description 03/30/2013 Telephone [facility] Women's Health Maternal & Care [address] [place] [address] [phone] Andreina Irving, [facility] [place] [address] [place] [phone] Social History Tobacco Use Types Packs/Day Years [...] on filedocumented in this encounter Care Teams Warp Knit Operator Relationship Specialty Start Date End Date Enoch Loyd MD [address] [facility] [address] [place] [address] PCP - General Internal Medicine 02/28/13 06/18/24 Helen Garber, RETAIL CLIENT MANAGER-QUARRY PLUG AND FEATHER DRILLER [address] [phone] PCP - General Nurse Practitioner 06/19/24 documented as of this encounter
--- OUTSIDE RECORDS SUMMARY | 2024-06-22 01:45 | XMS_ITS | Encounter Summary ---
Author Organization [facility] Address [address] [facility] [place] [address] Care Team Providers Care Patrol Lady Name Role Phone Enoch Loyd MD Primary Care Provider [phone] Helen Garber Primary Care Provider Encounter Details Date Type Department Care Team (Late st Contact Info) Description 12/27/2023 Lab Requisition [facility] - DermPath Lab [address] [facility], [place] [address] John Crenshaw MD [address] [place] [address] Social History Tobacco Use Types Packs/Day Years [...] AM CDT) Case Report Dermatopathology Report Case: [id number] Authorizing Provider: John Crenshaw MD Collected: 12/26/2023 12:00 AM Ordering Location: [facility] - Received: 12/27/2023 04:36 [...] determined by the Dermatopathology Laboratory at [facility], directed by Dr. Belle Prater. These tests need not be, and therefore are not, approved by the [place] Food and Drug Administration. The tests are used for clinical purposes. Billing Codes Specimen Charges Stain Charges 22082 1 47041 50532 1 1 4 4:58 PM CDT DERMATOPATHOLOGY LABORATORY Embedded Images 4 4:58 PM CDT DERMATOPATHOLOGY LABORATORY Pathology/Cytolog y TISSUE SPECIMEN FROM SKIN / Unknown 12/26/2023 12/27/2023 4:36 PM CDT John Crenshaw MD LAB - PATHOLOGY/CYTO LOGY ORDERABLES DERMATOPATHOLOGY LABORATORY [facility] - Department of Dermatology [address], [address] [phone] documented in this encounter Visit Diagnoses Not on filedocumented in this encounter Care Teams Patrol Lady Relationship Specialty Start Date End Date Enoch Loyd MD [address] [place] [address] [address] [place] [address] PCP - General Internal Medicine 02/28/13 06/18/24 Helen Garber, MACHINE FILLER-ELECTRONIC WARFARE OFFICER [address] [address] [address] [place] [phone] PCP - General Nurse Practitioner 06/19/24 documented as of this encounter
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
[2024-06-22] MEDS: LACTATED RINGERS 1,000 ML 30 ML IV CONT ×2 (13:15→16:20)
--- NOTE | 2024-06-22 13:50 | WPDHPUPDATE1 ---
History and Physical Update Update Date/Time: 06/22/24 13:50 History and Physical has been reviewed, including an updated exam of the patient. There are NO changes in the patient's condition. She would like to proceed with bilateral breast debridement and removal of Galaflex (partial or complete). Possible implant exchange. Possible implant removal. Risks, benefits, and alternatives have been discussed and questions answered. Patient agrees to proceed with procedure.
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
--- NOTE | 2024-06-22 14:22 | WPDANESEPPF ---
Anes - Initial Pre Proc Eval Procedure: Operation Date: 06/22/24 15:00 Proposed Procedures p Bilateral Breast Washout, Removal Bilateral Breast Implants - Ifeanyi Lamb MD Date/Time: 06/22/24 14:22 Surgeon: Iefanyi Lamb MD Pre Op Diagnosis: hx of breast augmentation Patient Data Age: 33 Gender: F Height: 1.7 m Weight: 94 kg Last Vital Signs Temp 98.5 F 06/22/24 13:00 Pulse 106 H 06/22/24 13:00 Resp 16 06/22/24 13:00 BP 127/82 06/22/24 13:00 Pulse Ox 100 06/22/24 13:00 O2 Del Method Room Air 06/22/24 13:00 Allergies Allergy/AdvReac Type Severity Reaction Status Date / Time No Known Allergies Allergy Verified 06/22/24 13:28 Home Medications ?Medication ?Instructions ?Recorded ?Confirmed ?Type No Home Medications 06/22/24 06/22/24 History Patient hx anesthesia problems: none Family hx anesthesia problems: none Results Review: All pre-operative results and documents have been reviewed as part of the pre-operative evaluation. [facility] Past Medical History Medical History Frequent loose stools Irregular periods Elevated liver enzymes Anemia TATO on CPAP Chest pain BMI 34.0-34.9,adult Stomach ulcer History of blood transfusion TATO (obstructive sleep apnea) Hernia Shortness of Breath Fatigue Increased frequency of urination Elevated LDL cholesterol level Elevated glucose Chest discomfort BMI 31.0-31.9,adult Hypersomnia Snoring BMI 32.0-32.9,adult Screening for diabetes mellitus Depression Anxiety Eczema Obesity Crohn's disease Surgical History Surgical History H/O abdominoplasty H/O breast augmentation (~12/2023) Hx of appendectomy 2015 History of colon surgery Family History Family History Father Hypertension Mother Hypertension COPD (chronic obstructive pulmonary disease) Heart disease Grandparent Cerebrovascular accident Social History Social History Smoking status: Former smoker Tobacco type: e-cigarettes/vaping Second hand tobacco smoke exposure: No Smoking end date: 01/17/24 Additional smoking assessment comments: VAPED X6 MONTH, QUIT 09/17/23 Alcohol intake: current Drinks per week: 1 Alcohol use details: socially- very rare Substance use: former Substance use type: marijuana Other substance usage details: WEED PEN FOR APPROX ~3 YRS, QUIT ~04/18/23 Last use: 2021 Do You Feel Safe in your Home?: Yes Lack of Transportation: No Lack of Food: Never True Current Housing: I Have Housing Concerned About Future Housing: No Difficulty Paying Gas/Electric Bills: No Difficulty Paying for Meds: No Currently Unemployed: No Education: High School Diploma/GED Difficulty w/ Childcare or Family Care: No Living arrangements: with family Additional living arrangements comments: HUSB AND 3 CHILDREN Occupation/Education: occupation 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 Gender identity (if verbalized by the patient): Female Sexual Orientation (if Verbalized by the Patient): Straight or Heterosexual Spiritual care concerns: No Anes - Eval Final PreProcedure Day of Procedure 06/22/24 14:22 Patient weight: obese Lungs: normal air movement Airway: Mallampati scale class II Neurological: alert and oriented Last oral intake: >/= 8 hours ASA classification: III Emergent: no Anesthetic plan: proceed Anesthesia type and monitoring: general LMA and standard monitoring Results Review: All pre-operative results and documents have been reviewed as part of the pre-operative evaluation. Obesity, TATO on CPAP, anxiety. Overall good functional status, no cp or sob. Informed Consent: The patient's anesthetic plan and its attendant risks and benefits were discussed with the patient/family/POA. Questions were solicited and answers provided to the satisfaction of the patient/family/POA.
[2024-06-22 14:26] LABS: BEDSIDEPREGUCG Negative (Negative)
[2024-06-22] MEDS: TRANEXAMIC ACID 1,000MG/ISO100 1,000 MG/100 ML BAG 200 MG IVPB (14:33)
[2024-06-22] MEDS: BUPivacaine HCL 0.25% PF 30 ML VIAL INFILTRATE (14:33)
[2024-06-22] MEDS: SCOPOLAMINE 1 MG PATCH 1 PATCH TRANSDERM (14:35)
[2024-06-22] MEDS: ceFAZolin 2 GM/D5W 50 ML 2 GM/50 ML BAG IVPB (14:43)
[2024-06-22] MEDS: LIDO 1%/EPINEPHRINE 1:100,000 50 ML VIAL 30 ML INFILTRATE (15:18)
[2024-06-22] MEDS: fentaNYL CITRATE INJ (*CRX) 100 MCG/2 ML VIAL 25 MCG IV PUSH ×4 (16:10→16:40)
[2024-06-22] MEDS: oxyCODONE HCL (*CRX) 5 MG TAB IR PO (17:16)
== END 2024-06-22 17:49 | disposition home or self-care (01) ==
PROVIDERS: PCP Nurse Practitioner Family; Visit Provider Surgery Plastic and Reconstructive Surgery
PROC: 0HPT0JZ Removal of Synthetic Substitute from Right Breast, Open Approach (ICD-10-PCS; CPT 11042; principal; 2024-06-22 15:00)
DX: T85.898A Other specified complication of other internal prosthetic devices, implants and grafts, initial encounter (principal); N64.89 Other specified disorders of breast; Y83.8 Other surgical procedures as the cause of abnormal reaction of the patient, or of later complication, without mention of misadventure at the time of the procedure; Z87.891 Personal history of nicotine dependence
CPT/HCPCS: 11042; A9270; J0690; J1100; J1200; J2004; J2250; J2405; J2704; J3010; J7120

== ENCOUNTER 2024-07-25 17:20 | Outpatient (CLI) | payer OTHER, SELFPAY ==
--- OUTSIDE RECORDS SUMMARY | 2024-07-25 17:24 | XMS_ITS | Encounter Summary ---
Author Organization [facility] Health Address [address] [place] [address] Care Team Providers Care Tile Helper Name Role Phone Enoch Loyd MD Primary Care Provider [phone] Helen Garber Primary Care Provider Encounter Details Date Type Department Care Team (Late st Contact Info) Description 12/27/2023 Lab Requisition [facility] - DermPath Lab [address] [place] [address] John Crenshaw MD [address] [place] [address] Social History Tobacco Use Types [...] AM CDT) Case Report Dermatopathology Report Case: [id number] Authorizing Provider: John Crenshaw MD Collected: 12/26/2023 12:00 AM Ordering Location: [facility] - Received: [...] characteristic determined by the Dermatopathology Laboratory at [facility], directed by Dr. Belle Prater. These tests need not be, and therefore are not, approved by the [place] Food and Drug Administration. The tests are used for clinical purposes. Billing Codes Specimen Charges Stain Charges 96776 1 [id number] 40132 1 1 4 4:58 PM CDT DERMATOPATHOLOGY LABORATORY Embedded Images 4 4:58 PM CDT DERMATOPATHOLOGY LABORATORY Pathology/Cytolog y TISSUE SPECIMEN FROM SKIN / Unknown 12/26/2023 12/27/2023 4:36 PM CDT John Crenshaw MD LAB - PATHOLOGY/CYTO LOGY ORDERABLES DERMATOPATHOLOGY LABORATORY [facility] - Department of Dermatology [address], [address] [phone] documented in this encounter Visit Diagnoses Not on filedocumented in this encounter Care Teams Tile Helper Relationship Specialty Start Date End Date Enoch Loyd MD [address] [place] [address] [address] [place] [address] PCP - General Internal Medicine 02/28/13 06/18/24 Helen Garber, SAND CAR WORKER-DEPUTY SHERIFF BAILIFF [address] [address] [address] [place] [phone] PCP - General Nurse Practitioner 06/19/24 documented as of this encounter
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
--- OUTSIDE RECORDS SUMMARY | 2024-07-25 17:25 | XMS_ITS | Clinical Summary ---
Author Organization [facility] Address [address] [facility] [address] [place] [address] Phone Care Team Providers Care Outreach Liaison Name Role Phone Unavailable Primary Care Provider [...] Orientation Not on file Plan of Treatment Upcoming Encounters Date Type Department Care Team (Late st Contact Info) Description 07/31/2024 8:30 AM CDT Appointment [facility] Hyperbaric and Wound [facility] [address] [place] [phone] Mary Lombardo, BUNDLER [address] [facility]. [address] [place] [address] Health Maintenance Due Date Last Done Comments DTAP/TDAP/TD VACCINES (1 - Tdap) 08/12/2010 HEPATITIS B VACCINES (1 of 3 - 19+ 3-dose series) 08/12/2010 HPV/Cotest (21-29) 08/12/2012 CERVICAL CANCER SCREENING 08/12/2021 HPV/Cotest (30-65) 08/12/2021 PAP SMEAR 08/12/2021 INFLUENZA VACCINE (#1) 2023 Preventative Visit- Commercial 04/18/2024 HPV VACCINES Aged Out No longer eligi ble based on patient's age to complete this topic Insurance [facility] [id number] [facility]
--- OUTSIDE RECORDS SUMMARY | 2024-07-25 17:25 | XMS_ITS | Encounter Summary ---
Author Organization [facility] Address [address] [place] [address] Care Team Providers Care Casing Material Weigher Name Role Phone Enoch Loyd MD Primary Care Provider [phone] Helen Garber Primary Care Provider Encounter Details Date Type Department Care Team (Late st Contact Info) Description 03/30/[address] [facility] Women's Health Maternal & Care [address] [place] [address] [phone] Andreina Irving, [facility] [place] [address] [place] [phone] Social History Tobacco Use Types Packs/Day Years [...] on filedocumented in this encounter Care Teams Casing Material Weigher Relationship Specialty Start Date End Date Enoch Loyd MD [address] [facility] [address] [place] [address] PCP - General Internal Medicine 02/28/13 06/18/24 Helen Garber, LOANS OFFICER-MANAGER [facility] [address] [phone] PCP - General Nurse Practitioner 06/19/24 documented as of this encounter
--- OUTSIDE RECORDS SUMMARY | 2024-07-25 17:25 | XMS_ITS | Data Portability ---
Author Organization [facility] Address [address] [place] [address] Care Team Providers Care Application Dba Name Role Phone SERGIO SHCMID Primary Care Provider [phone] Assessment Encounter Date Assessment Date Assessment LastModified by Organization Details LastModified Time 06/04/2021 06/04/2021 Annual gynecological exam performed. Patient will come back in a year unless there are new symptoms. [email or web address] Not available 05/22/2021 16:29:38 06/09/2023 06/09/2023 Annual gynecological exam performed. Patient will come back in a year unless there are new symptoms. Not available 06/09/2023 09:16:50 Plan of Treatment Reminders Order Date Submit Date Provider Last Modified By Organization Details Last Modified Time Details Appointments None recorded. Lab test, urine 2023 [facility], [address], [place], [address], 4 09:45:37 TSH, serum or plasma 2023 [facility] (Lab), [address], [place], [address], 4 01:19:47 prolactin, serum 2023 024 [facility] (Lab), [address], [place], [address], 4 01:19:46 FSH (follicle-s timulating hormone), serum 2023 024 [facility] (Lab), [address] [facility] [address], [place], [address], 4 01:19:47 estradiol, serum 2023 024 [facility] (Lab), [address], [place], [address], 4 01:19:45 testosteron e free/testos terone total, ratio, serum 2023 024 [facility] (Lab), [address], [place], [address], 4 01:19:48 lh (luteinizin g hormone), serum 2023 024 [facility] (Lab), [address] [facility], [place], [address], 4 01:19:46 HbA1c (hemoglobin A1c), blood 2023 024 [facility] (Lab), [address] [place], [address], 4 01:19:47 Referral None recorded. Procedures None recorded. Surgeries None recorded. Imaging None recorded. Medication Orders Slynd 4 mg (28) tablet 2023 024 [id number], [address], [place], [address], 4 11:00:57 Diflucan 100 mg tablet 2021 022 [id number], [address], [place], [id number], 3 09:41:09 Patient TargetsNo targets recorded. Patient [...] or kits canno t be used inter [facility] . Femal e Estra diol Range s: Folli cular phase 12.4- 233 pg/mL Ovula tion phase 41.0- 398 pg/mL Lutea l phase 22.3- 341 pg/mL Postm enopa usal< 5-138 pg/mL Healt hy Pregn ant Women 1st Trime ster1 54-32 43 pg/mL 2nd Trime ster1 561-2 1280 pg/mL 3rd Trime ster8 525-> 59259 pg/mL Not Available [facility] (Lab) [address] [facility], [place], [address], 06/14/2023 01:19:45 06/09/19 24 06/09/2023 PROLA CTIN prolactin, total 15.30 NG/mL 4.79-2 3.30 This assay was perfo rmed using [employer] ratio n reage nts and test kits. Value s obtai kaelyn with other assay metho ds or kits canno t be used inter [facility] . Not Available [facility] (Lab) [address] [facility], [place], [address], 06/14/2023 01:19:46 06/09/19 24 06/09/2023 LH (LUTE NIZIN G HORMO NE) LH 16.2 mIU/m L This assay was perfo rmed using [employer] ratio [employer] reage nts and test kits. Value s obtai kaelyn with other assay metho ds or kits canno t be used [facility] . Femal es Mid-F ollic ular: 2.4-1 2.6 mIU/m L Mid-C ycle: 14.0- 95.6 mIU/m L Mid-L uteal : 1.0-1 1.4 mIU/m L Postm enopa use: 7.7-5 8.5 mIU/m L Not Available [facility] (Lab) [address], [place], [address], 06/14/2023 01:19:46 06/09/19 24 06/09/2023 FSH FSH [...] use: 25.8- 134.8 mIU/m L Not Available [facility] (Lab) [address], [place], [address], 06/14/2023 01:19:47 06/09/19 24 06/09/2023 TSH, REFLE X FREE T4 TSH 2.70 uIU/m L 0.30-[address] [facility] (Lab) [address], [place], [address], 06/14/2023 01:19:47 06/09/19 24 06/09/2023 HEMOG LOBIN [...] >8.0% Actio n sugge sted Not Available [facility] (Lab) [address], [place], [address], 06/14/2023 01:19:47 06/09/19 24 06/09/2023 TESTO STERO NE, FREE( DIALY SIS) AND TOTAL (LC/M S/MS) testosterone , total 192 NG/dL 2-45 high For addit ional [facility] cent[facility] dev pinto e refer to http: //[facility] yocasta moses.que stdia gnost ics.c om/fa q/ Total Testo stero neLCM SMSFA Q165 (This link is being provi ded for infor [facility]/ educa slhomo l purpo ses only. ) This test was devel oped and its stevenson tical perfo rmanc e gina cteri stics have been deter mined by [employer] [place], [place]. It has not been clear ed or appro ty by the U.S. Food and Drug Admin istra tion. This assay has been valid ated pursu ant to the CLIA regul ation s and is used for clini maricel purpo ses. Not Available [facility] (Lab) [address] [facility], [place], [address], 06/14/2023 01:19:48 06/09/19 24 06/09/2023 TESTO STERO NE, FREE( DIALY SIS) AND TOTAL (LC/M S/MS) testosterone , free 23.0 pg/mL 0.1-6. 4 high This test was devel oped and its stevenson tical perfo rmanc e gina cteri stics have been deter mined by [employer] [place]. It has not been clear ed or appro ty by the U.S. Food and Drug Admin istra tion. This assay has been valid ated pursu ant to the CLIA regul ation s and is used for clini maricel purpo ses. Perfo rming Organ izati on [facility] n: Site ID: AMD Name: [employer] ostjohanne s Te[facility] Addre ss: [id number] [place], [place] Direc tor: Robbin Bosch MD PhD Not Available [facility] (Lab) [address], [place], [address], 06/14/2023 01:19:48 06/09/1906/09/2023 pregn naun test, urine HCG negati ve Not Available [place] [address], [place], [address], 06/09/2023 09:42:24 Result Notes None recorded. Problems Name Problem SNOMED Code Status Onset Date Resolution Date Notes Provider Name and Address Organization Details Recorded Time Crohn's disease 83633149 Completed 201909/08/2021 Bridget Cruz [facility] 17:34:30 Syphilis test finding 142578051 Completed 201405/14/2020 Encntr screen for infectio ns w sexl mode of transmis s;Practi ce ID: 0001 Patricia Thomas [facility] 18:43:37 Secondar y amenorrh ea 543873042 Completed 201405/14/2020 Secondar y amenorrh ea;Pract ice ID: 0001 Patricia Thomas [facility], [facility] 18:43:22 Pregnanc y detectio n examinat ion Completed 201405/14/2020 Encounte r for pregnanc y test, result positive ;Practic e ID: 0001 Patricia Thomas [facility] 18:43:00 Generali zed abdomina l tenderne ss [id number] Completed 201405/14/2020 Generali zed abdomina l tenderne ss;Pract ice ID: 0001 Patricia Thomas [facility] 18:42:06 Abdomina l pain [id number] Completed 201405/14/2020 Unspecif ied abdomina l pain;Pra ctice ID: 0001 Patricia waller, [facility] 18:41:06 Gestatio n period, 9 weeks [id number] Completed 201405/14/2020 9 weeks gestatio n of pregnanc y;Practi ce ID: 0001 Patricia Martha waller, [facility] 18:42:42 Normal pregnanc y in multigra camille [id number] 95611 Completed 201505/14/2020 Encounte r for suprvsn of normal pregnanc y, first trimeste r;Practi ce ID: 0001 Patricia waller, [facility] 18:42:55 Pregnanc y, childbir th and puerperi um finding Completed 201505/14/2020 Oth pregnanc y related conditio ns, third trimeste r;Practi ce ID: 0001 Patricia waller, [facility] 18:41:24 Gestatio n period, 24 weeks [id number] Completed 201505/14/2020 24 weeks gestatio n of pregnanc y;Practi ce ID: 0001 Patricia waller, [facility] 18:42:13 False labor before 37 complete d weeks of gestatio n [id number] Completed 201505/14/2020 False labor before 37 complete d weeks of gest, second tri;Prac navi ID: 0001 Patricia waller, [facility] 18:41:47 Gestatio n period, 25 weeks [id number] Completed 201505/14/2020 25 weeks gestatio n of pregnanc y;Practi ce ID: 0001 Patricia waller, [facility] 18:42:15 Clinical finding Completed 201512/23/2020 Gastro-e sophagea l reflux disease without esophagi tis;Prac navi ID: 0001 Марина Morgan MD [address], [place], [address], [facility] 11:42:18 prematur e rupture of membrane s [id number] Completed 201505/14/2020 Pretrm chela ROM, unsp time betw rupt and onst labr, 3rd tri;Prac navi ID: 0001 Patricia waller, [facility] 18:43:13 Gestatio n period, 29 weeks [id number] Completed 201505/14/2020 29 weeks gestatio n of pregnanc y;Practi ce ID: 0001 Patricia waller, [facility] 18:42:24 Generali zed abdomina l pain [id number] Completed 201505/14/2020 Generali zed abdomina l pain;Pra ctice ID: 0001 Patricia Thomas [facility], [facility] 18:42:04 Clinical finding Completed 201505/14/2020 state, incident al;Pract ice ID: 0001 Patricia waller, [facility] 18:41:26 Complica tion of pregnanc y, childbir th and/or puerperi [id number] Completed 201505/14/2020 Oth diseases and conditio ns compl preg/chl dbrth;Pr actice ID: 0001 Patricia waller, [facility] 18:43:44 Gestatio n period, 30 weeks [id number] Completed 201505/14/2020 30 weeks gestatio n of pregnanc y;Practi ce ID: 0001 Patricia waller, [facility] 18:42:27 Gestatio n period, 32 weeks [id number] Completed 201505/14/2020 32 weeks gestatio n of pregnanc y;Practi ce ID: 0001 Patricai Thomas null, [facility] 18:42:29 Urinary tract infectio us disease [id number] Completed 201505/14/2020 Urinary tract infectio n, site not specifie d;Practi ce ID: 0001 Patricia Thomas [facility], [facility] 18:43:46 Pregnanc y, childbir th and puerperi um finding Completed 201505/14/2020 Encntr for suprvsn of normal first preg, third trimeste r;Practi ce ID: 0001 Patricia Martha waller, [facility] 18:43:[address] Concept Completed 201505/14/2020 Decrease d movement s, third trimeste r, unsp;Pra ctice ID: 0001 Patricia Thomas [facility], [facility] 18:43:27 Gestatio n period, 35 weeks [id number] Completed 201505/14/2020 35 weeks gestatio n of pregnanc y;Practi ce ID: 0001 Patricia Martha [facility], [facility] 18:42:34 Gestatio n period, 36 weeks [id number] Completed 201505/14/2020 36 weeks gestatio n of pregnanc y;Practi ce ID: 0001 Patricia Thomas [facility], [facility] 18:42:36 Term pregnanc y delivere d [id number] Completed 201505/14/2020 Encounte r for full-ter m uncompli cated delivery ;Practic e ID: 0001 Patricia waller, [facility] 18:43:39 Single live [id number] Completed 201505/14/2020 Single live ;Pr actice ID: 0001 Patricia Thomas sridhar [facility] 18:43:24 Lochia finding Completed 201505/14/2020 Encounte r for routine postpart um follow-u p;Practi ce ID: 0001 Patricia Thomas sridhar [facility] 18:42:[address] Concept Completed 201505/14/2020 Encntr for general adult medical exam w/o abnormal findings ;Practic e ID: 0001 Patricia Thomas sridhar [facility] 18:43:30 Acute vaginiti s [id number] Completed 201605/14/2020 Acute vaginiti s;Practi ce ID: 0001 Patricia Thomas [facility] 18:41:08 Educatio n Completed 201605/14/2020 Encounte r for oth general cnsl and advice on contrace ption;Pr actice ID: 0001 Patricia Thomas [facility] 18:41:36 Pregnanc y test negative [id number] Completed 201605/14/2020 Encounte r for pregnanc y test, result negative ;Practic e ID: 0001 Patricia Thomas sridhar [facility] 18:43:02 Uterine size for dates discrepa ncy Completed 201605/14/2020 Uterine size-joanie e discrepa ncy, first trimeste r;Practi ce ID: 0001 Patricia Thomas [facility] 18:43:49 Finding of contents of cervix 291691416 Completed 201605/14/2020 Weeks of gestatio n of pregnanc y not specifie d;Practi ce ID: 0001 Patricia waller, [facility] 18:41:56 Amenorrh ea [id number] Completed 201605/14/2020 Amenorrh ea, unspecif ied;Prac navi ID: 0001 Patricia waller, [facility] 18:41:12 Threaten ed miscarri age [id number] Completed 201605/14/2020 Threaten ed ;Practic e ID: 0001 Patricia waller, [facility] 18:43:41 Antenata l screenin g Completed 201605/14/2020 Encounte r for antenata l screenin g for nuchal transluc ency;Pra ctice ID: 0001 Patricia waller, [facility] 18:41:15 Gestatio n period, 12 weeks [id number] Completed 201605/14/2020 12 weeks gestatio n of pregnanc y;Practi ce ID: 0001 Patricia waller, [facility] 18:42:08 Evaluati on finding Completed 201605/14/2020 Hematuri a, unspecif ied;Prac navi ID: 0001 Patricia waller, [facility] 18:41:42 Gestatio n period, 18 weeks [id number] Completed 201605/14/2020 18 weeks gestatio n of pregnanc y;Practi ce ID: 0001 Patricia waller, [facility] 18:42:11 Antenata l screenin g for malforma tion Completed 201605/14/2020 Encounte r for antenata l screenin g for malforma tions;Pr actice ID: 0001 Patricia waller, [facility] 18:41:18 Pregnanc y, childbir th and puerperi um finding Completed 201705/14/2020 Oth pregnanc y related conditio ns, second trimeste r;Practi ce ID: 0001 Patricia waller, [facility] 18:41:22 Gestatio n period, 27 weeks [id number] Completed 201705/14/2020 27 weeks gestatio n of pregnanc y;Practi ce ID: 0001 Patricia waller, [facility] 18:42:20 Prematur e labor [id number] Completed 201705/14/2020 labor without delivery , third trimeste r;Practi ce ID: 0001 Patricia waller, [facility] 18:43:10 Gestatio n period, 28 weeks [id number] Completed 201705/14/2020 28 weeks gestatio n of pregnanc y;Practi ce ID: 0001 Patricia waller, [facility] 18:42:22 Hemorrha gic complica tion of pregnanc y [id number] Completed 201705/14/2020 Other hemorrha ge in early pregnanc y;Practi ce ID: 0001 Patricia waller, [facility] 18:42:48 False labor at or after 37 complete d weeks of gestatio n [id number] Completed 201705/14/2020 False labor at or after 37 complete d weeks of gestatio n;Practi ce ID: 0001 Patricia waller, [facility] 18:41:45 Gestatio n period, 38 weeks [id number] Completed 201705/14/2020 38 weeks gestatio n of pregnanc y;Practi ce ID: 0001 Patricia waller, [facility] 18:42:38 Gestatio n period, 39 weeks [id number] Completed 201705/14/2020 39 weeks gestatio n of pregnanc y;Practi ce ID: 0001 Patricia waller, [facility] 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 18:43:32 Insertio n of intraute rine contrace ptive device Completed 201705/14/2020 Encounte r for insertio n of intraute rine contrace ptive device;P ractice ID: 0001 Patricia waller, [facility] 18:42:50 Finding of pattern of menstrua l cycle [id number] Completed 201705/14/2020 Excessiv e and frequent menstrua tion with irregula r cycle;Pr actice ID: 0001 Patricia waller, [facility] 18:42:01 Contrace ptive sheath status [id number] Completed 201705/14/2020 Encounte r for routine checking of intraute rine contrace p dev;Prac navi ID: 0001 Patricia waller, [facility] 18:41:30 Removal of intraute rine device Completed 201905/14/2020 Encounte r for removal of intraute rine contrace ptive device;P ractice ID: 0001 Patricia waller, [facility] 18:43:16 Pregnanc y test positive [id number] Completed 201405/14/2020 Pregnanc y examinat ion or test, positive result;R ecorded Elsewher e: No [facility] E[facility] Multi Punch Operator laney: N Javier ce ID: 0001 Seymour lable Time: 11:00:00 AM Patricia waller [facility] 1 18:43:05 Female genital organ symptoms [id number] Completed 201405/14/2020 Pelvic pain;Rec orded Elsewher e: No [facility]: EHR Multi Punch Operator laney: N Practi ce ID: 0001 Syemour lable Time: 09:30:00 [facility] 18:41:50 Dysfunct ional uterine bleeding Completed 201405/14/2020 Other disorder s of menstrua tion and other abnormal bleeding from female genital tract;Re corded Elsewher e: No Locat ion: [facility] N Robertati ce ID: 0001 Seymour lable Time: 03:30:00 PM Patricia Thomas [facility] 1 18:41:33 Adult health examinat ion Completed 201405/14/2020 ROUTINE MEDICAL EXAM;Rec orded Elsewher e: No Locat ion: [facility] S ource: EHR Multi Punch Operator laney: N Robertati ce ID: 0001 Seymour lable Time: 01:00:00 PM Patricia waller [facility] 1 18:41:10 Pelvic and perineal pain [id number] Completed 201705/14/2020 Pelvic and perineal pain;Rec orded Elsewher e: No Locat ion: [facility] N Robertati ce ID: 0001 Seymour lable Time: 08:45:00 AM Patricia waller [facility] 18:42:58 Clinical finding Completed 201707/17/2020 Presence of (intraut erine) contrace ptive device;R ecorded Elsewher e: No Locat ion: [facility] S ource: EHR Multi Punch Operator laney: N Practi ce ID: 0001 Seymour lable Time: 02:30:00 PM Rebecca Jacob sridhar, [facility] 12:15:19 Female infertil ity [id number] Completed 201405/14/2020 Female infertil ity;Wilner rded Elsewher e: No Locat ion: [facility] S ource: EHR Multi Punch Operator laney: N Practi ce ID: 0001 Seymour lable Time: 01:30:00 PM Patricia waller, [facility] 18:41:53 Gestatio n period, 33 weeks [id number] Completed 201505/14/2020 33 weeks gestatio n of pregnanc y;Record ed Elsewher e: No Locat ion: [facility] S ource: EHR Multi Punch Operator laney: N Practi ce ID: 0001 Seymour lable Time: 11:00:00 AM Patricia waller, [facility] 18:42:31 Gestatio n period, 26 weeks [id number] Completed 201505/14/2020 26 weeks gestatio n of pregnanc y;Record ed Elsewher e: No Locat ion: [facility] S ource: EHR Multi Punch Operator laney: N Practi ce ID: 0001 Seymour lable Time: 02:00:00 PM Patricia waller, [facility] 18:42:17 Speciali zed medical examinat ion Completed 201405/14/2020 Gynecolo gical Examinat ion;Wilner rded Elsewher e: No Locat ion: [facility] S ource: EHR Multi Punch Operator laney: N Practi ce ID: 0001 Seymour lable Time: 01:00:00 PM Patricia waller [facility] 18:43:35 Emotiona l state finding Completed 201705/14/2020 Anxiety depressi on;Recor ded Elsewher e: No Locat ion: [facility] S ource: EHR Multi Punch Operator laney: N Practi ce ID: 0001 Seymour lable Time: 09:45:00 AM Patricia Thomas [facility], [facility] 18:41:39 Atypical squamous cells of undeterm ined signific ance on cervical Papanico laou smear [id number] Completed 201409/08/2021 Bridget Cruz [facility], [facility] 2 17:34:30 Screenin g for malignan t neoplasm of cervix Completed 201405/14/2020 Pap Smear;Pr actice ID: 0001 Patricia Martha [facility], [facility] 18:43:20 Pregnanc y [id number] Completed 202001/08/2021 Nicki hicks [facility], [facility] 12:04:31 Headache [id number] Completed Rxed fioricet Nicki hicks [facility] 12:04:24 Dyspnea 453166770 Completed NL holter Nicki hicks [facility], [facility] 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 12:04:24 Obesity 124848526 Completed 37 week antenata l testing weekly Nicki hicks [facility] 09/23/202 1 12:04:24 Ultrasou nd scan abnormal [id number] Completed cisterna magna borderli ne marya rich at [facility] 11/26- They recommen d brain MRI to evaluate posterio r fossa- Let peds know! Nickivlad Crooksyuedorenecristela hicks [facility], [facility] 1 12:04:24 Past pregnanc y history of postpart um hemorrha ge 020953675 Completed Nicki hicks [facility], [facility] 1 12:04:24 Anxiety 76940923 Completed sertrali ne Nicki hicks [facility] 12:04:24 Problem Notes None recorded. Procedures Surgical History Date Name Laterality Status Provider Name and Address Organization Details Recorded Time 06/09/19 24 Date of Last Pap Smear completed Elizabeth Childers [facility] 06/09/2023 09:27:05 09/17/19 22 extraction of wisdom tooth completed Patricia Thomas [facility] 07/29/2022 09:41:59 04/18/19 15 excision of colon completed VANESSA Hinds [address], [place], [address], [facility] 06/09/2023 09:36:29 04/18/19 15 appendectomy completed Patricia Thomas [facility] 05/14/2020 19:43:41 Imaging Results None recorded. [...] Prescrib ed Elsewher e: No [facility] By: mayo case DateTime : 12/25/19 16 01:00:00 PM Not Available Not Available Not Available sertralin e 100 mg tablet 07/29 completed Not Available Not Available Not Available Diflucan 150 mg tablet take 1 tablet by oral route once 01/31 completed Prescrib ed Elsewher e: No [facility] By: tyler cuellar DateTime : [...] Elsewher e: No Locat ion: [facility] odify By: binta lópez DateTime : 02/05/20 17 11:42:21 AM Not Available Not Available Not Available Levora 0.15/30 (28) 0.15 mg-0.03 mg tablet take 1 tablet by oral route every day 10/04 completed Prescrib ed Elsewher e: No Locat ion: [facility] odify By: mayo case DateTime : 02/23/20 [...] Prescrib ed Elsewher e: No Locat ion: [facility] odify By: leoncio Redman r DateTime : 02/03/20 18 08:15:00 AM Not Available Not Available Not Available Synthroid 25 mcg tablet take 1 tablet by oral route every day 03/31 completed Prescrib ed Elsewher e: No Locat ion: [facility] odify By: rd Redman r DateTime : [...] Elsewher e: No Locat ion: [facility] odify By: [email or web address] Encounte r DateTime : 05/10/19 18 08:45:00 AM Not Available Not Available Not Available Synthroid 88 mcg tablet take 1 tablet by oral route daily 09/16 completed Prescrib ed Elsewher e: No [facility] By: [email or web address] Coffey ncounter DateTime : 04/28/19 18 02:09:28 PM Not Available Not Available Not Available Synthroid 75 mcg tablet take 1 tablet by oral route every day 02/17 completed Prescrib ed Elsewher e: No Locat ion: [facility] odify By: mayo Redman r DateTime : 06/10/19 16 01:13:40 PM Not Available Not Available Not Available Synthroid 50 mcg tablet take 1 tablet by oral route every day 04/28 completed Prescrib ed Elsewher e: No Locat ion: [facility] odify By: [email or web address] Crockerte r DateTime : [...] Prescrib ed Elsewher e: No Locat ion: [facility] odify By: binta lópez DateTime : 04/25/19 10:15:00 AM Not Available Not Available Not Available epinephri ne 0.3 mg/0.3 mL injection , auto-inje ctor USE IM UTD 07/21 completed Not Available Not Available Not Available Vitamin D2 1,250 mcg (50,000 unit) capsule take 1 capsule by oral route every week 02/17 completed Prescrib ed Elsewher e: No Locat ion: [facility] odify By: mayo Redman r DateTime : [...] Prescrib ed Elsewher e: No Locat ion: [facility] odify By: mayo Redman r DateTime : 11/09/19 15 04:15:00 PM Not Available Not Available Not Available iron 18 mg tablet 02/17 completed Prescrib ed Elsewher e: Yes Loca tion: [facility] odify By: mayo Redman r DateTime : 08/20/19 15 01:00:00 PM Not Available Not Available Not Available azithromy arian 500 mg tablet take 2 tablet by oral route once 02/17 completed Prescrib ed Elsewher e: No Locat ion: [facility] odify By: mayo Redman r DateTime : [...] Elsewher e: No Locat ion: Sudheer alexx [facility] odify By: mayo Redman r DateTime : 09/12/19 16 08:30:00 AM Not Available Not Available Not Available Prevacid 24Hr 15 mg capsule,d elayed release take 1 capsule by oral route every day before a meal 02/17 completed Prescrib ed Elsewher e: No Locat ion: [facility] odify By: mayo Redman r DateTime : 08/11/19 16 02:00:00 PM Not Available Not Available Not Available butalbita l-acetami nophen-ca ffeine 50 mg-300 mg-40 mg capsule Take 1 capsule every 4 hours by oral route. 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 2 10:43:08 Date Recorded Body height Provider Name an d Address Organization Details Last Updated DateTime 06/04/2021 160.02 cm Marbin Marc MD [address], [place], [address], [facility] 06/04/2021 17:41:06 Date Recorded Body height Body mass index (BMI) Body weight Systolic blood pressure Diastolic blood pressure Provider Name and Address Organization Details Last Updated DateTime 07/29/2022 160.02 cm 35.8 kg/m2 37502.66 g 117 mm[Hg] 82 mm[Hg] Patricia Thomas [facility] 3 09:41:02 Date Recorded Body height Body mass index (BMI) Body weight Systolic blood pressure Diastolic blood pressure Provider Name and Address Organization Details Last Updated DateTime 06/09/2023 160.02 cm 38.4 kg/m2 67965.54 g 117 mm[Hg] 78 mm[Hg] [facility] 4 09:25:33 Date Recorded Body height Body mass index (BMI) Body weight Systolic blood pressure Diastolic blood pressure Provider Name and Address Organization Details Last Updated DateTime 06/22/2023 160.02 cm 39 kg/m2 56831.32 g 133 mm[Hg] 76 mm[Hg] [facility] 4 10:06:55 Social History Question Answer Notes LastModified by Organizat ion Details LastModified Time Tobacco Smoking Status Never Smoker [facility] 10/12/2019 16:43:32 What Is Your Level Of Alcohol Consumption? None [email or web address] Information not available 05/14/2020 If You Are , What Was Your Level Of Alcohol Consumption Prior To ? None Information not available 05/14/2020 Are You Blind Or Do You Have Difficulty Seeing? No [email or web address] Information n ot available 10/21/2020 What Is Your Level Of Caffeine Consumption? Occasional [email or web address] Information not available 05/14/2020 In The 14 Days Before Symptom Onset, Have You Had Close Contact With A Laboratory-confirm ed COVID-19 While That Case Was Ill? No [email or web address] Information n ot available 10/21/2020 In The 14 Days Before Symptom Onset, Have You Had Close Contact With A Person Who Is Under Investigation For COVID-19 While That Person Was Ill? No [email or web address] Information not available 10/21/2020 Have You Been To An Area Known To Be High Risk For COVID-19? No [email or web address] Information not available 10/21/2020 Are You Deaf Or Do You Have Serious Difficulty Hearing? No [email or web address] Information not available 10/21/2020 What Type Of Diet Are You Following? REGULAR [email or web address] Information n ot available 10/21/2020 Do You Use Your Seat Belt Or Car Seat Routinely? Yes [email or web address] Information not available 10/21/2020 Are You Sexually Active? Yes Information not available 06/09/2023 Do You Have Smoke And Carbon Monoxide Detectors In Your Home? Yes [email or web address] Information not available 10/21/2020 Do You Feel Stressed (tense, Restless, Nervous, Or Anxious, Or Unable To Sleep At Night)? [id number] [email or web address] Information not available 10/21/2020 Do You Use Any Illicit Or Recreational Drugs? No [email or web address] Information not available 05/14/2020 Do You Use Sunscreen Routinely? Yes [email or web address] Information not available 10/21/2020 Has Tobacco Cessation Counseling Been Provided? No [email or web address] Information not available 05/14/2020 Do You Or Have You Ever Used Any Other Forms Of Tobacco Or Nicotine? No [email or web address] Information not available 05/14/2020 Sex: Unknown Functional Status Question Answer Note LastModified by Organizat ion Details LastModified Time Do you have difficulty walking or climbing stairs? No [email or web address] Information not available 07/29/2022 Are you able to walk? YESWOREST [email or web address] Information not available 10/21/2020 Are you able to care for yourself? Yes [email or web address] Information not available 07/29/2022 Do you have difficulty dressing or bathing? No [email or web address] Information not available 07/29/2022 What is your exercise level? Moderate [email or web address] Information not available 10/21/2020 Mental Status None [...] (Food, seasonal, environmental ) N Other N Drug/Latex Allergies/Reactions N Breast Cancer N Blood Transfusion N Lung Disease N Dermatologic Disorders N Defects or Inherited Disease N Breast Problem N Gestational Diabetes N Hematologic disorders N Anesthesia Complications N History of STI Y Deep Vein Thrombosis N Polycystic ovary syndrome N Anxiety Disorder N Autoimmune disease N Arthritis N Polyps N Infertility N History of abnormal pap Y Acid Reflux (GERD) Y Cancer N Varicosities N Stroke N Neurologic/Epilepsy N Endometriosis N High Cholesterol N Headaches N Fibromyalgia N Kidney Disease N Heart Problems N Thyroid Problems N Kidney or Bladder Problems N GI Problems Y Eating Disorder [...] ICD10 Code Diagnosis Note 1309 Melodie Jenkins [place] [address] [address] 08/06/2019 10:35:26 08/07/2019 13:38:12 Vaginitis 07788719 N76.0 Discussed use of mild soap like dove or ivory, cotton underwear w/out dye, hypoallerg enic detergent, wipe from front to back, avoid tub baths, keep perineum clean and dry, d/c use of baby wipes. Encouraged daily intake of yogurt or womens health probiotic. Internal and external affirm collected along with STD culture per patient request. [id number] Melodie Jenkins [place] [address],[place] [address] 10/02/2019 11:06:56 10/03/2019 09:16:56 test positive 663985829 Z32.01 9729 Marbin Marc MD [place] [address] [address] 10/12/2019 16:08:09 10/15/2019 14:20:15 test positive 089269899 Z32.01 This patient is a 29-year-ol d [...] the ultrasound . 9855 Marbin Marc MD [place] [address],[place] [address] 10/15/2019 13:24:40 10/15/2019 14:36:23 screening 765494619 Z36.9 This patient is a 29-year-ol d female who presents for follow-up onearly gestation. Herpregnan cy was of unknown viability. Ultrasound was performed today. Intrauteri ne gestationa l sac and yolk sac were observed.T his is fairly consistent with her suspectedg estational age.She has no complaints . No cramping or bleeding. She will follow-up in 2 weeks. 9856 [facility] [address],[place] [address] 10/15/2019 13:25:12 10/15/2019 17:30:58 Uncertain viability of 498813153 O36.80X9 Z3A.01 [id number] [facility] [address],[place] [address] 10/29/2019 15:24:56 10/29/2019 16:21:39 Uncertain viability of 903574979 O36.80X9 Z3A.01 [id number] Marbin Marc MD [place] [address],[place] [address] 10/29/2019 15:25:16 10/29/2019 17:40:59 Crohn's disease 70579314 K50.90 This patient is a 29-year-ol d [...] initial OB. We talked about genetic screening. [id number] Melodie Jenkins [place] [address] [address] 11/05/2019 17:25:37 11/05/2019 22:15:29 test positive 774444067 Z32.01 Risk factors addressed: Tobacco Cessation, Safe [...] annual well woman examinatio n and address [facility] . [address] Shanita Negrete CNM [place] [address] [address] 05/14/2020 16:55:26 05/20/2020 12:21:48 Amenorrhea 89076084 N91.2 45727 Fadumo Cruz [place] [address] [address] 05/14/2020 16:49:09 05/14/2020 17:28:37 screening 363600551 Z36.87 This patient is a 29-year-ol d female who presents for follow-up onearly gestation. Herpregnan cy was of unknown viability. Ultrasound was performed today. Intrauteri ne gestationa l sac and yolk sac were observed.T his is fairly consistent with her suspectedg estational age.She has no complaints . No cramping or bleeding. She will follow-up in 2 weeks. [id number] Marbin Marc MD [place] [address] [address] 06/10/2020 14:41:22 06/10/2020 16:08:51 Tachycardia 6910021 R00.0 This patient is a 29-year-ol d [...] this patient s visit, including available hand manufacturers representative upon arrive, temperelliotur e check and being asked a series of screening questions. All staff wore face coverings during this encounter, as well as provided additional cleaning and sanitizing of all surfaces, including countertop s, pens, chairs, door handles, light switches, etc, prior to and following the patient s visit. Orthostati c hypotension 46534208 I95.1 Headache 22242723 R51.9 [id number] [facility] [address] [address] 06/23/2020 09:35:05 06/23/2020 10:17:22 screening 708319734 Z36.82 This patient is a 29-year-ol d female who presents for follow-up onearly gestation. Herpregnan cy was of unknown viability. Ultrasound was performed today. Intrauteri ne gestationa l sac and yolk sac were observed.T his is fairly consistent with her suspectedg estational age.She has no complaints . No cramping or bleeding. She will follow-up in 2 weeks. [id number] Marbin Marc MD [place] [address] [address] 06/23/2020 09:35:51 06/23/2020 13:22:37 Routine care 526770747 Z34.91 Headache 77215551 R51.9 [id number] [facility] [address] [address] 07/21/2020 11:02:28 07/21/2020 12:21:49 Routine care 300671534 Z34.92 [id number] [facility] [address],[place] [address] 08/12/2020 12:15:27 08/12/2020 12:42:58 Urinary tract infectious disease 72433489 N39.0 [id number] [facility] [address] [address] 08/18/2020 13:55:21 08/18/2020 15:22:57 Routine care 072033872 Z34.92 15622 [facility] [address] [address] 08/18/2020 13:54:38 08/18/2020 15:05:57 screening for malformation 311404481 Z36.3 [id number] [facility] [address],[place] [address] 09/22/2020 13:55:52 09/22/2020 15:22:24 Routine care 264551928 Z34.92 70306 Janessa Finley [place] [address] [address] 09/22/2020 13:54:28 09/22/2020 14:56:16 Excessive growth affecting management of mother 47659027 O36.62X0 Z3A.24 16035 [facility] [address],[place] [address] 10/21/2020 13:40:04 10/21/2020 16:44:29 Routine care 035252108 Z34.92 [id number] Marbin Marc MD [place] [address] [address] 11/01/2020 12:36:48 11/01/2020 13:17:16 Routine care 767765856 Z34.91 Crohn's disease 63866389 K50.90 This patient is a 29-year-ol d female who presents forfollow- up onfirst trimesterI UP. She has Crohn's disease. She has beenreferr ed [facility] Crohn's disease. She has a 7-week 4-dayIUPto day. An ultrasound was performed. We reviewed those results.Liat coffey is doing well. She had a recent flare of her Crohn's. She is doing well now.We discussed various aspects of care. We discussed monitoring / testing.Liat coffey return in 5 weeks for initial OB. We talked about genetic screening. [id number] Shanita Negrete CNM [place] [address] [address] 11/21/2020 14:02:00 11/21/2020 16:40:13 Routine care 547676180 Z34.93 [id number] Marbin Marc MD [place] [address] [address] 12/02/2020 10:49:04 12/02/2020 12:03:22 Routine care 112509823 Z34.91 Hemorrhoids 83112364 K64 .9 06402 Melodie Jenkins [place] [address] [address] 12/16/2020 09:47:06 12/16/2020 23:14:17 Routine care 472199775 Z34.92 [id number] [facility] [address] [address] 12/16/2020 09:47:41 12/16/2020 11:48:06 Maternal obesity complicating , childbirth and the puerperium, antepartum 1581148083 07 O99.213 [id number] [facility] [address] [address] 12/16/2020 09:49:49 12/16/2020 11:48:32 Pre-existing maternal disease complicating 9963929972 6106 O99.891 67692 [facility] [address] [address] 12/19/2020 11:17:29 12/19/2020 13:08:12 Maternal obesity complicating , childbirth and the puerperium, antepartum 1295916140 07 O99.213 14699 [facility] [address] [address] 12/19/2020 12:47:08 12/19/2020 14:07:49 Abnormal heart rate 238233512 O36.8330 Z3A.37 63171 Fadumo Cruz [place] [address] [address] 12/23/2020 09:38:51 12/23/2020 10:40:59 Pre-existing maternal disease complicating 8919993488 6106 O99.213 Z3A.38 16898 [facility] [address],[place] [address] 12/23/2020 09:39:10 12/23/2020 12:22:11 Maternal obesity complicating , childbirth and the puerperium, antepartum 0032809147 07 O99.213 72302 Марина Morgan MD [place] [address] [address] 12/23/2020 09:39:23 12/23/2020 12:52:32 Routine care 429515156 Z34.83 15037 [facility] [address] [address] 12/29/2020 14:28:49 12/29/2020 15:50:41 Routine care 280840774 Z34.92 [address]2335 [facility] [address] [address] 12/29/2020 13:29:42 12/29/2020 14:28:54 Maternal obesity complicating , childbirth and the puerperium, antepartum 8404945453 07 O99.213 [id number] Gerriaugusto Gary [place] [address] [address] 12/29/2020 14:58:47 12/29/2020 16:29:49 Maternal obesity complicating , childbirth and the puerperium, antepartum 0118527418 07 O99.213 52169 [facility] [address] [address] 01/07/2021 11:52:57 01/07/2021 14:56:14 -induced hypertension 2905060861 9100 O13.9 PIH precaution s given. RTC for routine post visit. Pt desires tubal ligation. Discussed procedure risks and benefits. Will send to surgery scheduling . 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 Has only been taking 50mg and feels it works well for her. Female sterilization 608 92847 Z30.2 01919 Marbin Marc MD [place] [address],[place] [address] 01/19/2021 09:46:40 01/19/2021 10:50:08 Infection of uterus 528617594 N71.9 This patient is a 30-year-ol d [...] up in 5 days for routine follow-up. [id number] Melodie Coronadovicki [place] [address],[place] [address] 01/26/2021 11:56:15 01/27/2021 19:45:23 state 27293213 Z39.2 Continue to watch for signs/symp toms [...] paper copy of today's plan if desired [id number] Marbin Marc MD [place] [address] [address] 02/10/2021 15:49:50 02/10/2021 17:06:15 Female sterilization 74741749 Z30.2 this patient is a 30-year-ol d female who desires female sterilizat ion. We have agreed to perform laparoscop ic bilateral salpingect natasha. She understand s the risks, benefits, and alternativ es. She has completed the informed consent process and is ready to proceed. [id number] Melodie Jenkins [place] [address],[place] [address] 02/24/2021 14:20:01 02/24/2021 15:30:03 Contraception care management 518974692 Z30.9 Decided against tubal d/t chrons. Pt would like to start p.o.p. Discussed importance of taking at the same time every day. Also informed that it may not be as effective as estrogen containing pills. RTC in 3 months for wwe with med check. [id number] [facility] [address] [address] 04/29/2021 10:35:14 04/30/2021 17:08:00 Pain of breast 19571101 N64.4 Due to descriptio n of pain being pins and needles will treat for yeast with a 2 week round of diflucan. If no resolution of symptoms will need to schedule imaging. Pt will return in 1-2 weeks for follow up. [id number] Marbin Marc MD [place] [address] [address] 06/04/2021 11:21:03 06/04/2021 17:42:14 [id number] Melodie Jenkins [place] [address] [address] 07/29/2022 09:30:44 07/29/2022 10:04:29 Vaginitis 03364246 N76.0 Discussed use of mild soap like dove or ivory, cotton underwear w/out dye, hypoallerg enic detergent, wipe from front to back, avoid tub baths, keep perineum clean and dry, d/c use of baby wipes. Encouraged daily intake of yogurt or womens health probiotic. Internal and external affirm collected along with STD culture per patient request. [id number] VANESSA Hinds [place] [address],[place] [address] 06/09/2023 09:14:02 06/09/2023 10:03:07 Gynecologic examination 57509568 Z01.419 WWEpap updateddec lined STI screeningr outine [...] of today's plan if desired. Irregular periods 101090 07 N92.6 UPT (-)labs orderedgiv en this is the first occurrence , continue to track cycles and return if no period for 3 months. Discussed importance of periods every 3 months for endometria l protection . [id number] VANESSA Hidns [place] [address] [address] 06/22/2023 10:03:28 06/22/2023 11:08:01 Contraception care management 472206715 Z30.9 Discussed all control options in great [...] ID Guarantor Name 04/29/2021 1 [facility] [employer] [id number] Marlo Sykes [id number] Agnieszka Sykes 06/04/2021 1 [facility] [place] [employer] 15560 Marlo Sykes [id number] Agnieszka Simmonst 07/29/2022 1 [facility] [place] [employer] [address]2466 Marlo Sykes [id number] Agnieszka Simmonst 06/09/2023 1 [facility] [place] [employer] 93587 Marlo Sykes [id number] Agnieszka Simmonst 06/22/2023 1 [facility] [place] [employer] [id number] Marlo Sykes [id number] Agnieszka Sykes Notes Date Note Type Note Provider Name and Address Organization Details Recorded Time 04/29/2021 text/html Pain in left millie ast while . Usually starts a few minutes into the feeding. Feels like pins and needles. Very sharp. No lumps, no redness, no tender areas. No fever or flu like symptoms. Melodie Jenkins [facility] 05/18/2021 18:45:43 07/29/2022 text/html Vaginal/Vulvar ProblemReported bypatient.Notes:Water y discharge, occasional odor, occasional itching Melodie waller [facility] 07/29/2022 09:54:27 06/09/2023 text/html Annual GYNReport [...] a month VANESSA Hinds [address], [place], [address], [facility] 06/09/2023 10:02:07 06/22/2023 text/html 32yo [id number] ents for BC consultwould like BC to prevent and period regulationdenies h/o DVT/PE, HTN, Stroke/MN, cancer, liver disease, or migraine with auramedical hx: Crohn's Hilaria Alarcon, [facility] [address], [place], [address], [place] [facility] 06/22/2023 11:01:35 OBGyn Episode Ob Episode Information Episode Created Date Number of Fetuses Patient Bloodtype Patient rh Status Prepregnancy Weight lbs Domestic Partner Domestic Partner Phone Father Name Financial Quantitative Analyst Status 08/06/19 1 CLOSED Fetus Data First Name Last Name Admitted to NICU Weight (g) Sex Living Outcome Pediatric Complications Fetus ID Race Codes Race Delivery Type 3515.33 8 M Full Term 619 Vaginal Delivery Candelario Calculation Initial Candelario Date Initial Exam Date Initial Exam Provider Initial Ultrasound Date Last Menstrual Period Date Ultra Sound Weeks Gestation 0 Eighteen To Twenty Week Cnadelario Update Ultra Sound Date Fundal Height At [...] Domestic Partner Domestic Partner Phone Father Name Financial Quantitative Analyst Status 08/06/19 1 CLOSED Fetus Data First [...] Domestic Partner Domestic Partner Phone Father Name Financial Quantitative Analyst Status 08/06/19 20 1 CLOSED Fetus Data [...] Domestic Partner Domestic Partner Phone Father Name Financial Quantitative Analyst Status 06/24/19 21 1 CLOSED Fetus Data [...] Domestic Partner Domestic Partner Phone Father Name Financial Quantitative Analyst Status 06/24/19 21 1 O Positive 207 [...] Date Resolution Snomed Code Not e Obesity 961101279 37 week an tenatal testing weekly Past history of hemorrhage [id number] Headache MEDICATION [id number] Rxed raji icet Dyspnea 164995147 holter Crohn's disease 10/29/2019 [id number] s/p bowel resection, no meds - MFM- 08/20 u/s & OV- 08/15 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 Anxiety 04538418 sertraline Candelario Calculation Initial Candelario Date Initial [...] Gestation 0 [email or web address] 06/23/2020 01/07/20 21 0 Pre- Flowsheet Flowsheet Date 06/23/2020 Donahue Score Blood Edema Fundus Height Fundus Units Glucose Ketones Leukocytes Nitrite Labor Signs Protein Cervic Dilation Cervic Effacement Cervic Station 12 Type Weight in lbs Pre/Post Dialysis Refused Weight 208.994618737764 BP Diastolic BP Location Tested BP Systolic [...] Weight in lbs Pre/Post Dialysis Refused Weight 203.10501602569 BP Diastolic BP Location Tested BP Systolic [...] Weight in lbs Pre/Post Dialysis Refused Weight 203.76943004504 BP Diastolic BP Location Tested BP Systolic [...] Weight in lbs Pre/Post Dialysis Refused Weight 208.524542703325 BP Diastolic BP Location Tested BP Systolic [...] Weight in lbs Pre/Post Dialysis Refused Weight 207.546806744845 BP Diastolic BP Location Tested BP Systolic [...] Weight in lbs Pre/Post Dialysis Refused Weight 211.300567252249 BP Diastolic BP Location Tested BP Systolic BP Type 82 128 Fetus Heart Rate Present A 145 Fetus Movement A Yes Comments 2+glucose, just ate, Flowsheet Date 11/21/2020 Donahue Score Blood Edema Fundus Height Fundus Units Glucose Ketones Leukocytes Nitrite Labor Signs Protein Cervic Dilation Cervic Effacement Cervic Station neg trace trace Type Weight in lbs Pre/Post Dialysis Refused Weight 211.244955234047 BP Diastolic BP Location Tested BP Systolic [...] Weight in lbs Pre/Post Dialysis Refused Weight 215.453035507197 BP Diastolic BP Location Tested BP Systolic [...] Weight in lbs Pre/Post Dialysis Refused Weight 213.257457102800 BP Diastolic BP Location Tested BP Systolic [...] Weight in lbs Pre/Post Dialysis Refused Weight 216.738551471762 BP Diastolic BP Location Tested BP Systolic [...] Weight in lbs Pre/Post Dialysis Refused Weight 218.929497788232 BP Diastolic BP Location Tested BP Systolic [...] Weight in lbs Pre/Post Dialysis Refused Weight 200.171190651568 BP Diastolic BP Location Tested BP Systolic [...] Estim ated Date of Delivery false Thalassemia (Irish, Thai, Mediterranean, Or Background): MCV < 80 false Neural Tube Defect (Meningomyelocele, Spina Bifi da, Or Anencephaly) false Congenital Heart Defect false Down Syndrome false Andrea-Sachs (eg, Tenriism, Cajun, [place] Islander-Morehouse) f alse Renetta Disease false Sickle Cell Disease Or Trait () false Hemophilia Or Other Blood Disorders false Muscular Dystrophy false Cystic Fibrosis false [place]'s Ch[place] false Intellectual Disability/Autism false If Yes, [...]
[2024-07-25 17:45] LABS: Hematocrit 39.7 % (37.0-47.0); Hemoglobin 13.1 g/dL (12.0-15.0); Mean Platelet Volume 9.3 fl (7.4-10.4); Platelet Count Result 213 k/mm3 (150-375); Red Blood Count 4.51 M/mm3 (4.2-5.4); Red Cell Distribution Width 13.2 % (11.5-14.5)
[2024-07-25 18:42] LABS: Iron 73 ug/dL (37-170)
[2024-07-25 18:47] LABS: Albumin Level 4.5 g/dL (3.5-5.1); Anion Gap 10 mmol/L (4-12); Blood Urea Nitrogen 19 mg/dL (7-17); Calcium 9.1 mg/dL (8.4-10.2); Carbon Dioxide 23 mmol/L (22-30); Chloride 103 mmol/L (98-107); Estimated Glomerular Filt Rate > 60; Glucose 88 mg/dL (65-110); Potassium 4.4 mmol/L (3.4-5.0); Sodium 136 mmol/L (137-145)
[2024-07-25 18:57] LABS: Prealbumin 27.7 mg/dL (17.6-36.0)
[2024-07-30 15:42] LABS: Vitamin B1 11 nmol/L (8-30)
== END 2024-07-25 17:21 | disposition home or self-care (01) ==
LOC: ANHLAB 17:23
PROVIDERS: PCP Nurse Practitioner Family; Visit Provider Surgery Plastic and Reconstructive Surgery
DX: R63.4 Abnormal weight loss (principal)
CPT/HCPCS: 36415; 80048; 82040; 83036; 83540; 84134; 84425; 85027

== ENCOUNTER 2024-08-01 14:51 | Outpatient (NON) | payer OTHER, SELFPAY ==
--- OUTSIDE RECORDS SUMMARY | 2024-08-01 16:09 | XMS_ITS | Encounter Summary ---
Author Organization [facility] Health Address [address] [place] [address] Care Team Providers Care Riveting Machine Operator Name Role Phone Enoch Loyd MD Primary Care Provider [phone] Helen Garber Primary Care Provider Encounter Details Date Type Department Care Team (Late st Contact Info) Description 12/27/2023 Lab Requisition [facility] - DermPath Lab [address] [place] [address] John Crenshaw MD [address] [place] [address] Social History Tobacco Use Types Packs/Day Years Used Date Smoking Tobacco: Never Smokeless Tobacco: Never Alcohol Use Standard Drinks/Week Comments No 0 (1 standard drink = 0.6 oz pur e alcohol) Comments Unknown Sex and Gender Information Value Date Recorded Sex Assigned at Not on file 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 Gender Identity Not on file Sexual Orientation Not on file documented as of this encounter Plan of Treatment Not on file documented as of this encounter Procedures Procedure Name Priority Date/Time Associated Diagnosis Comments DERMATOPATHOLOGY Routine 12/26/2023 12:0 0 AM CDT documented in this encounter Results * DERMATOPATHOLOGY (12/26/2023 12:00 AM CDT) Case Report Dermatopathology Report Case: [id number] Authorizing Provider: John Crenshaw MD Collected: 12/26/2023 12:00 AM Ordering Location: [facility] - Received: 12/27/2023 04:36 PM [...] characteristic determined by the Dermatopathology Laboratory at [facility], directed by Dr. Belle Prater. These tests need not be, and therefore are not, approved by the [place] Food and Drug Administration. The tests are used for clinical purposes. Billing Codes Specimen Charges Stain Charges 80344 1 21834 99250 1 1 4 4:58 PM CDT DERMATOPATHOLOGY LABORATORY Embedded Images 4 4:58 PM CDT DERMATOPATHOLOGY LABORATORY Pathology/Cytolog y TISSUE SPECIMEN FROM SKIN / Unknown 12/26/2023 12/27/2023 4:36 PM CDT John Crenshaw MD LAB - PATHOLOGY/CYTOLOGY ORDERA BLES Final Result DERMATOPATHOLOGY LABORATORY [facility] - Department of Dermatology [facility] Medicine [address] [place] [address], [address] [phone] documented in this encounter Visit Diagnoses Not on filedocumented in this encounter Care Teams Riveting Machine Operator Relationship Specialty Start Date End Date Enoch Loyd MD [address] [place] [address] [address] [place] [address] PCP - General Internal Medicine 02/28/13 06/18/24 Helen Garber APRN-TEAM PRIMARY CARE PHYSICIAN [address] [facility] [address] [place] [phone] PCP - General Nurse Practitioner 06/19/24 documented as of this encounter
--- OUTSIDE RECORDS SUMMARY | 2024-08-01 16:09 | XMS_ITS | Clinical Summary ---
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 contribute to the osmolar gap. Ethanol's contribution to the osmolar gap can be estimated by dividing the concentration of ethanol in mg/dL by 4.6. This test is for clinical use only and does not equal a ESTEBAN for legal purposes. Aleks Aguilar MD LAB - CHEMISTRY ORDERABLES Fin al Result Performing Organization Address [facility] Co de Phone Number [address] [address], [facility] [phone] * XR CHEST 1VW PORTABLE (06/19/2024 8:50 AM [facility]) Anatomical Region Laterality Modality Chest Digital Radiogra phy 06/19/2024 9:07 AM [facility] Narrative 06/19/2024 9:18 AM [facility] PROCEDURE: XR CHEST 1VW PORTABLE, DATE/TIME OF EXAM: 06/19/2024 8:50 AM, LOCATION [facility] INDICATION: Trauma ADDITIONAL CLINICAL INFORMATION: Ordering Provider Reason For Exam: Technologist Note: Additional: COMPARISON: None. TECHNIQUE: Frontal radiograph of the chest. FINDINGS/IMPRESSION: Cardiomediastinal silhouette appears normal. No pleural effusion or pneumothorax. No pulmonary consolidation. No acute osseous abnormality. Bilateral breast implants. Report dictated by John Paul Fink MD, (Wood Router Hand). Marya Jiménez MD have personally reviewed and interpreted this examination/study. > Interpreting Provider: Marya Ferrara MD on 06/19/2024 9:18 AM Procedure Note Marya Ferrara MD - 06/19/2024 PROCEDURE: XR CHEST 1VW PORTABLE, DATE/TIME OF EXAM: 06/19/2024 8:50 AM, LOCATION [facility] INDICATION: Trauma ADDITIONAL CLINICAL INFORMATION: Ordering Provider Reason For Exam: Technologist Note: Additional: COMPARISON: None. TECHNIQUE: Frontal radiograph of the chest. FINDINGS/IMPRESSION: Cardiomediastinal silhouette appears normal. No pleural effusion or pneumothorax. No pulmonary consolidation. No acute osseous abnormality. Bilateral breast implants. Report dictated by John Paul Fink MD, (Wood Router Hand). Marya Jiménez MD have personally reviewed and interpreted this examination/study. > Interpreting Provider: Marya Ferrara MD on 06/19/2024 9:18 AM Aleks Aguilar MD DIAGNOSTIC IMAGING ORDERABLES Final Result * XR PELVIS 1 OR 2VW (06/19/2024 8:50 AM [facility]) Anatomical Region Laterality Modality Pelvis Digital Radiogra phy 06/19/2024 9:06 AM [facility] Impressions 06/19/2024 9:15 AM [facility] IMPRESSION: No fracture or dislocation. > Dictated by John Paul Fink MD, (vice president of software engineering). Marya Jiménez MD have personally reviewed and interpreted this examination/study. > Interpreting Provider: Marya Ferrara MD on 06/19/2024 9:15 AM Narrative 06/19/2024 9:15 AM [facility] PROCEDURE: XR PELVIS 1 OR 2VW, DATE/TIME OF EXAM: 06/19/2024 8:50 AM, LOCATION [facility] INDICATION: Trauma Fracture suspected ADDITIONAL CLINICAL INFORMATION: [...] DATE/TIME OF EXAM: 06/19/2024 8:50 AM, LOCATION [facility] INDICATION: Trauma Fracture suspected ADDITIONAL CLINICAL INFORMATION: [...] > Dictated by John Paul Fink MD, (vice president of software engineering). I, Marya Ferrara MD have personally reviewed and interpreted this examination/study. > Interpreting Provider: Marya Ferrara MD on 06/19/2024 9:15 AM Aleks Aguilar MD DIAGNOSTIC IMAGING ORDERABLES Final Result from Last 3 Months Insurance [facility] [employer] [facility] Care Teams Interior Mechanic Relationship Specialty Start Date End Date Helen Garber, BELT POLISHER-SKILLED NURSING PROFESSIONAL [address] [phone] PCP - General Nurse Practitioner 06/19/24
--- OUTSIDE RECORDS SUMMARY | 2024-08-01 16:10 | XMS_ITS | Data Portability ---
Author Organization [facility] Address [address] [place] [address] Care Team Providers Care Account Manager B2B Name Role Phone SERGIO SCHMID Primary Care Provider Assessment Encounter Date Assessment Date Assessment LastModified by Organization Details LastModified Time 06/04/2021 06/04/2021 Annual gynecological exam performed. Patient will come back in a year unless there are new symptoms. Not available 05/22/2021 16:29:38 06/09/2023 06/09/2023 Annual gynecological exam performed. Patient will come back in a year unless there are new symptoms. Not available 06/09/2023 09:16:50 Plan of Treatment Reminders Order Date Submit Date Provider Last Modified By Organization Details Last Modified Time Details Appointments None recorded. Lab test, urine 2023 [facility], [address], [place], [address], 4 09:45:37 TSH, serum or plasma 2023 [facility] (Lab), [address], [place], [address], 4 01:19:47 prolactin, serum 2023 024 [facility] (Lab), [address], [place], [address], 4 01:19:46 FSH (follicle-s timulating hormone), serum 2023 024 [facility] (Lab), [address], [place], [address], 4 01:19:47 estradiol, serum 2023 024 [facility] (Lab), [address], [place], [address], 4 01:19:45 testosteron e free/testos terone total, ratio, serum 2023 024 [facility] (Lab), [address], [place], [address], 4 01:19:48 lh (luteinizin g hormone), serum 2023 024 [facility] (Lab), [address], [place], [address], 4 01:19:46 HbA1c (hemoglobin A1c), blood 2023 024 [facility] (Lab), [address] [place], [address], 4 01:19:47 Referral None recorded. Procedures None recorded. Surgeries None recorded. Imaging None recorded. Medication Orders Slynd 4 mg (28) tablet 2023 024 [id number], [address], [place], [address], 4 11:00:57 Diflucan 100 mg tablet 2021 022 [id number], [address], [place], [id number], 3 09:41:09 Patient TargetsNo targets recorded. Patient [...] or kits canno t be used [facility] . Femal e Estra diol Range s: Folli cular phase 12.4- 233 pg/mL Ovula tion phase 41.0- 398 pg/mL Lutea l phase 22.3- 341 pg/mL Postm enopa usal< 5-138 pg/mL Healt hy Pregn ant Women 1st Trime ster1 54-32 43 pg/mL 2nd Trime ster1 561-2 1280 pg/mL 3rd Trime ster8 525-> 94478 pg/mL Not Available [facility] (Lab) [address], [place], [address], 06/14/2023 01:19:45 06/09/19 24 06/09/2023 PROLA CTIN prolactin, total 15.30 NG/mL 4.79-2 3.30 This assay was perfo rmed using [employer] ratio n reage nts and test kits. Value s obtai kaelyn with other assay metho ds or kits canno t be used [facility] . Not Available [facility] (Lab) [address], [place], [address], 06/14/2023 01:19:46 06/09/19 24 06/09/2023 LH (LUTE NIZIN G HORMO NE) LH 16.2 mIU/m L This assay was perfo rmed using [employer] ratio [employer] reage nts and test kits. Value s obtai kaelyn with other assay metho ds or kits canno t be used [facility] . Femal es Mid-F ollic ular: 2.4-1 2.6 mIU/m L Mid-C ycle: 14.0- 95.6 mIU/m L Mid-L uteal : 1.0-1 1.4 mIU/m L Postm enopa use: 7.7-5 8.5 mIU/m L Not Available [facility] (Lab) [address], [place], [address], 06/14/2023 01:19:46 06/09/19 24 06/09/2023 FSH FSH [...] use: 25.8- 134.8 mIU/m L Not Available [facility] (Lab) [address], [place], [address], 06/14/2023 01:19:47 06/09/19 24 06/09/2023 TSH, REFLE X FREE T4 TSH 2.70 uIU/m L 0.30-5 .33 Not Available [facility] (Lab) [address], [place], [address], 06/14/2023 01:19:47 06/09/19 24 06/09/2023 HEMOG LOBIN [...] >8.0% Actio n sugge sted Not Available [facility] (Lab) [address], [place], [address], 06/14/2023 01:19:47 06/09/19 24 06/09/2023 TESTO STERO NE, FREE( DIALY SIS) AND TOTAL (LC/M S/MS) testosterone , total 192 NG/dL 2-45 high For addit ional [facility] e refer to http: //[facility] yocasta moses.que stdia gnost ics.c om/fa q/ Total Testo stero neLCM SMSFA Q165 (This link is being provi ded for infor [facility]/ educa shlomo l purpo ses only. ) This test was devel oped and its stevenson tical perfo rmanc e gina cteri stics have been deter mined by [employer] [place], [place]. It has not been clear ed or appro ty by the U.S. Food and Drug Admin istra tion. This assay has been valid ated pursu ant to the CLIA regul ation s and is used for clini maricel purpo ses. Not Available [facility] (Lab) [address], [place], [address], 06/14/2023 01:19:48 06/09/19 24 06/09/2023 TESTO STERO NE, FREE( DIALY SIS) AND TOTAL (LC/M S/MS) testosterone , free 23.0 pg/mL 0.1-6. 4 high This test was devel oped and its stevenson tical perfo rmanc e gina cteri stics have been deter mined by [employer] [place]. It has not been clear ed or appro ty by the U.S. Food and Drug Admin istra tion. This assay has been valid ated pursu ant to the CLIA regul ation s and is used for clini maricel purpo ses. Perfo rming Organ izati on [facility] n: Site ID: AMD Name: [employer] ostjohanne s [facility] Addre ss: [id number] [place], [place] Direc tor: Robbin Bosch MD PhD Not Available [facility] (Lab) [address], [place], [address], 06/14/2023 01:19:48 06/09/1906/09/2023 pregn naun test, urine HCG negati ve Not Available [facility] [address], [place], [address], 06/09/2023 09:42:24 Result Notes None recorded. Problems Name Problem SNOMED Code Status Onset Date Resolution Date Notes Provider Name and Address Organization Details Recorded Time Crohn's disease 03260235 Completed 201909/08/2021 Bridget Cruz [facility] 17:34:30 Syphilis test finding [id number] Completed 201405/14/2020 Encntr screen for infectio ns w sexl mode of transmis s;Practi ce ID: 0001 Patricia Thomas [facility] 18:43:37 Secondar y amenorrh ea [id number] Completed 201405/14/2020 Secondar y amenorrh ea;Pract ice ID: 0001 Patricia Thomas [facility], [facility] 18:43:22 Pregnanc y detectio n examinat ion Completed 201405/14/2020 Encounte r for pregnanc y test, result positive ;Practic e ID: 0001 Patricia Thomas [facility] 18:43:00 Generali zed abdomina l tenderne ss [id number] Completed 201405/14/2020 Generali zed abdomina l tenderne ss;Pract ice ID: 0001 Patricia Thomas [facility] 18:42:06 Abdomina l pain [id number] Completed 201405/14/2020 Unspecif ied abdomina l pain;Pra ctice ID: 0001 Patricia waller, [facility] 18:41:06 Gestatio n period, 9 weeks [id number] Completed 201405/14/2020 9 weeks gestatio n of pregnanc y;Practi ce ID: 0001 Patricia Martha waller, [facility] 18:42:42 Normal pregnanc y in multigra camille [id number] 02015 Completed 201505/14/2020 Encounte r for suprvsn of normal pregnanc y, first trimeste r;Practi ce ID: 0001 Patricia waller, [facility] 18:42:55 Pregnanc y, childbir th and puerperi um finding Completed 201505/14/2020 Oth pregnanc y related conditio ns, third trimeste r;Practi ce ID: 0001 Patricia waller, [facility] 18:41:24 Gestatio n period, 24 weeks [id number] Completed 201505/14/2020 24 weeks gestatio n of pregnanc y;Practi ce ID: 0001 Patricia waller, [facility] 18:42:13 False labor before 37 complete d weeks of gestatio n [id number] Completed 201505/14/2020 False labor before 37 complete d weeks of gest, second tri;Prac navi ID: 0001 Patricia waller, [facility] 18:41:47 Gestatio n period, 25 weeks [id number] Completed 201505/14/2020 25 weeks gestatio n of pregnanc y;Practi ce ID: 0001 Patricia waller, [facility] 18:42:15 Clinical finding Completed 201512/23/2020 Gastro-e sophagea l reflux disease without esophagi tis;Prac navi ID: 0001 Марина Morgan MD [address], [place], [address], [facility] 11:42:18 prematur e rupture of membrane s [id number] Completed 201505/14/2020 Pretrm chela ROM, unsp time betw rupt and onst labr, 3rd tri;Prac navi ID: 0001 Patricia waller, [facility] 18:43:13 Gestatio n period, 29 weeks [id number] Completed 201505/14/2020 29 weeks gestatio n of pregnanc y;Practi ce ID: 0001 Patricia waller, [facility] 18:42:24 Generali zed abdomina l pain [id number] Completed 201505/14/2020 Generali zed abdomina l pain;Pra ctice ID: 0001 Patricia Thomas [facility], [facility] 18:42:04 Clinical finding Completed 201505/14/2020 state, incident al;Pract ice ID: 0001 Patricia waller, [facility] 18:41:26 Complica tion of pregnanc y, childbir th and/or puerperi [id number] Completed 201505/14/2020 Oth diseases and conditio ns compl preg/chl dbrth;Pr actice ID: 0001 Patricia waller, [facility] 18:43:44 Gestatio n period, 30 weeks [id number] Completed 201505/14/2020 30 weeks gestatio n of pregnanc y;Practi ce ID: 0001 Patricia waller, [facility] 18:42:27 Gestatio n period, 32 weeks [id number] Completed 201505/14/2020 32 weeks gestatio n of pregnanc y;Practi ce ID: 0001 Patricia Thomas null, [facility] 18:42:29 Urinary tract infectio us disease [id number] Completed 201505/14/2020 Urinary tract infectio n, site not specifie d;Practi ce ID: 0001 Patricia Thomas [facility], [facility] 18:43:46 Pregnanc y, childbir th and puerperi um finding Completed 201505/14/2020 Encntr for suprvsn of normal first preg, third trimeste r;Practi ce ID: 0001 Patricia Martha waller, [facility] 18:43:[address] Concept Completed 201505/14/2020 Decrease d movement s, third trimeste r, unsp;Pra ctice ID: 0001 Patricia Thomas [facility], [facility] 18:43:27 Gestatio n period, 35 weeks [id number] Completed 201505/14/2020 35 weeks gestatio n of pregnanc y;Practi ce ID: 0001 Patricia Martha [facility], [facility] 18:42:34 Gestatio n period, 36 weeks [id number] Completed 201505/14/2020 36 weeks gestatio n of pregnanc y;Practi ce ID: 0001 Patricia Thomas [facility], [facility] 18:42:36 Term pregnanc y delivere d [id number] Completed 201505/14/2020 Encounte r for full-ter m uncompli cated delivery ;Practic e ID: 0001 Patricia waller, [facility] 18:43:39 Single live [id number] Completed 201505/14/2020 Single live ;Pr actice ID: 0001 Patricia Thomas sridhar [facility] 18:43:24 Lochia finding Completed 201505/14/2020 Encounte r for routine postpart um follow-u p;Practi ce ID: 0001 Patricia Thomas sridhar [facility] 18:42:[address] Concept Completed 201505/14/2020 Encntr for general adult medical exam w/o abnormal findings ;Practic e ID: 0001 Patricia Thomas sridhar [facility] 18:43:30 Acute vaginiti s [id number] Completed 201605/14/2020 Acute vaginiti s;Practi ce ID: 0001 Patricia Thomas [facility] 18:41:08 Educatio n Completed 201605/14/2020 Encounte r for oth general cnsl and advice on contrace ption;Pr actice ID: 0001 Patricia Thomas [facility] 18:41:36 Pregnanc y test negative [id number] Completed 201605/14/2020 Encounte r for pregnanc y test, result negative ;Practic e ID: 0001 Patricia Thomas sridhar [facility] 18:43:02 Uterine size for dates discrepa ncy Completed 201605/14/2020 Uterine size-joanie e discrepa ncy, first trimeste r;Practi ce ID: 0001 Patricia Thomas [facility] 18:43:49 Finding of contents of cervix [id number] Completed 201605/14/2020 Weeks of gestatio n of pregnanc y not specifie d;Practi ce ID: 0001 Patricia waller, [facility] 18:41:56 Amenorrh ea [id number] Completed 201605/14/2020 Amenorrh ea, unspecif ied;Prac navi ID: 0001 Patricia waller, [facility] 18:41:12 Threaten ed miscarri age [id number] Completed 201605/14/2020 Threaten ed ;Practic e ID: 0001 Patricia waller, [facility] 18:43:41 Antenata l screenin g Completed 201605/14/2020 Encounte r for antenata l screenin g for nuchal transluc ency;Pra ctice ID: 0001 Patricia waller, [facility] 18:41:15 Gestatio n period, 12 weeks [id number] Completed 201605/14/2020 12 weeks gestatio n of pregnanc y;Practi ce ID: 0001 Patricia waller, [facility] 18:42:08 Evaluati on finding Completed 201605/14/2020 Hematuri a, unspecif ied;Prac navi ID: 0001 Patricia waller, [facility] 18:41:42 Gestatio n period, 18 weeks [id number] Completed 201605/14/2020 18 weeks gestatio n of pregnanc y;Practi ce ID: 0001 Patricia waller, [facility] 18:42:11 Antenata l screenin g for malforma tion Completed 201605/14/2020 Encounte r for antenata l screenin g for malforma tions;Pr actice ID: 0001 Patricia waller, [facility] 18:41:18 Pregnanc y, childbir th and puerperi um finding Completed 201705/14/2020 Oth pregnanc y related conditio ns, second trimeste r;Practi ce ID: 0001 Patricia waller, [facility] 18:41:22 Gestatio n period, 27 weeks [id number] Completed 201705/14/2020 27 weeks gestatio n of pregnanc y;Practi ce ID: 0001 Patricia waller, [facility] 18:42:20 Prematur e labor [id number] Completed 201705/14/2020 labor without delivery , third trimeste r;Practi ce ID: 0001 Patricia waller, [facility] 18:43:10 Gestatio n period, 28 weeks [id number] Completed 201705/14/2020 28 weeks gestatio n of pregnanc y;Practi ce ID: 0001 Patricia waller, [facility] 18:42:22 Hemorrha gic complica tion of pregnanc y 051216962 Completed 201705/14/2020 Other hemorrha ge in early pregnanc y;Practi ce ID: 0001 Patricia waller, [facility] 18:42:48 False labor at or after 37 complete d weeks of gestatio n [id number] Completed 201705/14/2020 False labor at or after 37 complete d weeks of gestatio n;Practi ce ID: 0001 Patricia waller, [facility] 18:41:45 Gestatio n period, 38 weeks [id number] Completed 201705/14/2020 38 weeks gestatio n of pregnanc y;Practi ce ID: 0001 Patricia waller, [facility] 18:42:38 Gestatio n period, 39 weeks [id number] Completed 201705/14/2020 39 weeks gestatio n of pregnanc y;Practi ce ID: 0001 Patricia waller, [facility] 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 18:43:32 Insertio n of intraute rine contrace ptive device Completed 201705/14/2020 Encounte r for insertio n of intraute rine contrace ptive device;P ractice ID: 0001 Patricia waller, [facility] 18:42:50 Finding of pattern of menstrua l cycle [id number] Completed 201705/14/2020 Excessiv e and frequent menstrua tion with irregula r cycle;Pr actice ID: 0001 Patricia waller, [facility] 18:42:01 Contrace ptive sheath status [id number] Completed 201705/14/2020 Encounte r for routine checking of intraute rine contrace p dev;Prac navi ID: 0001 Patricia waller, [facility] 18:41:30 Removal of intraute rine device Completed 201905/14/2020 Encounte r for removal of intraute rine contrace ptive device;P ractice ID: 0001 Patricia waller, [facility] 18:43:16 Pregnanc y test positive [id number] Completed 201405/14/2020 Pregnanc y examinat ion or test, positive result;R ecorded Elsewher e: No [facility] [employer] laney: N Javier ce ID: 0001 Seymour lable Time: 11:00:00 AM Patricia waller [facility] 1 18:43:05 Female genital organ symptoms [id number] Completed 201405/14/2020 Pelvic pain;Rec orded Elsewher e: No [facility]: [employer] laney: N Practi ce ID: 0001 Seymour lable Time: 09:30:00 [facility] 18:41:50 Dysfunct ional uterine bleeding Completed 201405/14/2020 Other disorder s of menstrua tion and other abnormal bleeding from female genital tract;Re corded Elsewher e: No Locat ion: [facility] N Robertati ce ID: 0001 Seymour lable Time: 03:30:00 PM Patricia Thomas [facility] 1 18:41:33 Adult health examinat ion Completed 201405/14/2020 ROUTINE MEDICAL EXAM;Rec orded Elsewher e: No Locat ion: [facility] S ource: [employer] laney: N Robertati ce ID: 0001 Seymour lable Time: 01:00:00 PM Patricia waller [facility] 1 18:41:10 Pelvic and perineal pain 187502761 Completed 201705/14/2020 Pelvic and perineal pain;Rec orded Elsewher e: No Locat ion: [facility] N Robertati ce ID: 0001 Seymour lable Time: 08:45:00 AM Patricia waller [facility] 18:42:58 Clinical finding Completed 201707/17/2020 Presence of (intraut erine) contrace ptive device;R ecorded Elsewher e: No Locat ion: [facility] S ource: [employer] laney: N Practi ce ID: 0001 Seymour lable Time: 02:30:00 PM Rebecca Jacob sridhar, [facility] 12:15:19 Female infertil ity [id number] Completed 201405/14/2020 Female infertil ity;Wilner rded Elsewher e: No Locat ion: [facility] S ource: [employer] laney: N Practi ce ID: 0001 Seymour lable Time: 01:30:00 PM Patricia waller, [facility] 18:41:53 Gestatio n period, 33 weeks [id number] Completed 201505/14/2020 33 weeks gestatio n of pregnanc y;Record ed Elsewher e: No Locat ion: [facility] S ource: [employer] laney: N Practi ce ID: 0001 Seymour lable Time: 11:00:00 AM Patricia waller, [facility] 18:42:31 Gestatio n period, 26 weeks [id number] Completed 201505/14/2020 26 weeks gestatio n of pregnanc y;Record ed Elsewher e: No Locat ion: [facility] S ource: [employer] laney: N Practi ce ID: 0001 Seymour lable Time: 02:00:00 PM Patricia waller, [facility] 18:42:17 Speciali zed medical examinat ion Completed 201405/14/2020 Gynecolo gical Examinat ion;Wilner rded Elsewher e: No Locat ion: [facility] S ource: [employer] laney: N Practi ce ID: 0001 Seymour lable Time: 01:00:00 PM Patricia waller [facility] 18:43:35 Emotiona l state finding Completed 201705/14/2020 Anxiety depressi on;Recor ded Elsewher e: No Locat ion: [facility] S ource: [employer] laney: N Practi ce ID: 0001 Seymour lable Time: 09:45:00 AM Patricia Thomas [facility], [facility] 18:41:39 Atypical squamous cells of undeterm ined signific ance on cervical Papanico laou smear [id number] Completed 201409/08/2021 Bridget Cruz [facility], [facility] 2 17:34:30 Screenin g for malignan t neoplasm of cervix Completed 201405/14/2020 Pap Smear;Pr actice ID: 0001 Patricia Martha [facility], [facility] 18:43:20 Pregnanc y [id number] Completed 202001/08/2021 Nicki hicks [facility], [facility] 12:04:31 Headache [id number] Completed Rxed fioricet Nicki hicks [facility] 12:04:24 Dyspnea 121947770 Completed NL holter Nicki hicks [facility], [facility] 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 12:04:24 Obesity 656975629 Completed 37 week antenata l testing weekly Nicki hicks [facility] 09/23/202 1 12:04:24 Ultrasou nd scan abnormal [id number] Completed cisterna magna borderli ne marya rich at [facility] 11/26- They recommen d brain MRI to evaluate posterio r fossa- Let peds know! Nickivlad Crooksyuedorenecristela hicks [facility], [facility] 1 12:04:24 Past pregnanc y history of postpart um hemorrha ge [id number] Completed Nicki hicks [facility], [facility] 1 12:04:24 Anxiety [id number] Completed sertrali ne Nicki hicks [facility] 12:04:24 Problem Notes None recorded. Procedures Surgical History Date Name Laterality Status Provider Name and Address Organization Details Recorded Time 06/09/19 24 Date of Last Pap Smear completed Elizabeth Childers [facility] 06/09/2023 09:27:05 09/17/19 22 extraction of wisdom tooth completed Patricia Thomas [facility] 07/29/2022 09:41:59 04/18/19 15 excision of colon completed VANESSA Hinds [address], [place], [address], [facility] 06/09/2023 09:36:29 04/18/19 15 appendectomy completed Patricia Thomas [facility] 05/14/2020 19:43:41 Imaging Results None recorded. [...] Prescrib ed Elsewher e: No [facility]at [facility] By: mayo case DateTime : 12/25/19 16 01:00:00 PM Not Available Not Available Not Available sertralin e 100 mg tablet 07/29 completed Not Available Not Available Not Available Diflucan 150 mg tablet take 1 tablet by oral route once 01/31 completed Prescrib ed Elsewher e: No [facility] odify By: tyler cuellar DateTime [...] Elsewher e: No Locat ion: [facility] odify By: binta lópez DateTime : 02/05/20 17 11:42:21 AM Not Available Not Available Not Available Levora 0.15/30 (28) 0.15 mg-0.03 mg tablet take 1 tablet by oral route every day 10/04 completed Prescrib ed Elsewher e: No Locat ion: [facility] odify By: mayo case DateTime [...] Prescrib ed Elsewher e: No Locat ion: [facility] odify By: leoncio Redman r DateTime : 02/03/20 18 08:15:00 AM Not Available Not Available Not Available Synthroid 25 mcg tablet take 1 tablet by oral route every day 03/31 completed Prescrib ed Elsewher e: No Locat ion: [facility] odify By: rd Redman r DateTime [...] Elsewher e: No Locat ion: [facility] odify By: [email or web address] Encounte r DateTime : 05/10/19 18 08:45:00 AM Not Available Not Available Not Available Synthroid 88 mcg tablet take 1 tablet by oral route daily 09/16 completed Prescrib ed Elsewher e: No [facility] By: [email or web address] Coffey ncounter DateTime : 04/28/19 18 02:09:28 PM Not Available Not Available Not Available Synthroid 75 mcg tablet take 1 tablet by oral route every day 02/17 completed Prescrib ed Elsewher e: No Locat ion: [facility] odify By: mayo Redman r DateTime : 06/10/19 16 01:13:40 PM Not Available Not Available Not Available Synthroid 50 mcg tablet take 1 tablet by oral route every day 04/28 completed Prescrib ed Elsewher e: No Locat ion: [facility] odify By: [email or web address] Crockerte r DateTime [...] Prescrib ed Elsewher e: No Locat ion: [facility] odify By: binta lópez DateTime : 04/25/19 10:15:00 AM Not Available Not Available Not Available epinephri ne 0.3 mg/0.3 mL injection , auto-inje ctor USE IM UTD 07/21 completed Not Available Not Available Not Available Vitamin D2 1,250 mcg (50,000 unit) capsule take 1 capsule by oral route every week 02/17 completed Prescrib ed Elsewher e: No Locat ion: [facility] odify By: mayo Redman r DateTime [...] Prescrib ed Elsewher e: No Locat ion: [facility] odify By: mayo Redman r DateTime : 11/09/19 15 04:15:00 PM Not Available Not Available Not Available iron 18 mg tablet 02/17 completed Prescrib ed Elsewher e: Yes Loca tion: [facility] odify By: mayo Redman r DateTime : 08/20/19 15 01:00:00 PM Not Available Not Available Not Available azithromy arian 500 mg tablet take 2 tablet by oral route once 02/17 completed Prescrib ed Elsewher e: No Locat ion: [facility] odify By: mayo Redman r DateTime [...] Elsewher e: No Locat ion: [facility] odify By: mayo Redman r DateTime : 09/12/19 16 08:30:00 AM Not Available Not Available Not Available Prevacid 24Hr 15 mg capsule,d elayed release take 1 capsule by oral route every day before a meal 02/17 completed Prescrib ed Elsewher e: No Locat ion: [facility] odify By: mayo Redman r DateTime : 08/11/19 16 02:00:00 PM Not Available Not Available Not Available butalbita l-acetami nophen-ca ffeine 50 mg-300 mg-40 mg capsule Take 1 capsule every 4 hours by oral route. 01/07 completed Not Available Not Available Not Available DRUM HANDLER-PNV-DH A 28 mg iron-1 mg-200 mg capsule take 1 capsule by oral route every day 09/16 completed Prescrib ed Elsewher e: No [facility] odify By: [email or web address] E ncounter DateTime : [...] Updated DateTime 04/29/2021 160.02 cm 36.1 kg/m2 61165.84 g 132 mm[Hg] 84 mm[Hg] Rebecca Jacob [place] - [facility] 2 10:43:08 Date Recorded Body height Provider Name an d Address Organization Details Last Updated DateTime 06/04/2021 160.02 cm Marbin Marc MD [address], [place], [address], [facility] 06/04/2021 17:41:06 Date Recorded Body height Body mass index (BMI) Body weight Systolic blood pressure Diastolic blood pressure Provider Name and Address Organization Details Last Updated DateTime 07/29/2022 160.02 cm 35.8 kg/m2 48732.66 g 117 mm[Hg] 82 mm[Hg] Patricia Thomas [facility] 3 09:41:02 Date Recorded Body height Body mass index (BMI) Body weight Systolic blood pressure Diastolic blood pressure Provider Name and Address Organization Details Last Updated DateTime 06/09/2023 160.02 cm 38.4 kg/m2 24910.54 g 117 mm[Hg] 78 mm[Hg] [facility] 4 09:25:33 Date Recorded Body height Body mass index (BMI) Body weight Systolic blood pressure Diastolic blood pressure Provider Name and Address Organization Details Last Updated DateTime 06/22/2023 160.02 cm 39 kg/m2 08155.32 g 133 mm[Hg] 76 mm[Hg] [facility] 4 10:06:55 Social History Question Answer Notes LastModified by Organizat ion Details LastModified Time Tobacco Smoking Status Never Smoker [facility] 10/12/2019 16:43:32 What Is Your Level Of Alcohol Consumption? None [email or web address] Information not available 05/14/2020 If You Are , What Was Your Level Of Alcohol Consumption Prior To ? None [email or web address] Information not available 05/14/2020 Are You Blind Or Do You Have Difficulty Seeing? No [email or web address] Information n ot available 10/21/2020 What Is Your Level Of Caffeine Consumption? Occasional [email or web address] Information not available 05/14/2020 In The 14 Days Before Symptom Onset, Have You Had Close Contact With A Laboratory-confirm ed COVID-19 While That Case Was Ill? No [email or web address] Information n ot available 10/21/2020 In The 14 Days Before Symptom Onset, Have You Had Close Contact With A Person Who Is Under Investigation For COVID-19 While That Person Was Ill? No [email or web address] Information not available 10/21/2020 Have You Been To An Area Known To Be High Risk For COVID-19? No Information not available 10/21/2020 Are You Deaf Or Do You Have Serious Difficulty Hearing? No [email or web address] Information not available 10/21/2020 What Type Of Diet Are You Following? REGULAR Information n ot available 10/21/2020 Do You Use Your Seat Belt Or Car Seat Routinely? Yes [email or web address] Information not available 10/21/2020 Are You Sexually Active? Yes Information not available 06/09/2023 Do You Have Smoke And Carbon Monoxide Detectors In Your Home? Yes [email or web address] Information not available 10/21/2020 Do You Feel Stressed (tense, Restless, Nervous, Or Anxious, Or Unable To Sleep At Night)? [id number] [email or web address] Information not available 10/21/2020 Do You Use Any Illicit Or Recreational Drugs? No [email or web address] Information not available 05/14/2020 Do You Use Sunscreen Routinely? Yes [email or web address] Information not available 10/21/2020 Has Tobacco Cessation Counseling Been Provided? No [email or web address] Information not available 05/14/2020 Do You Or Have You Ever Used Any Other Forms Of Tobacco Or Nicotine? No [email or web address] Information not available 05/14/2020 Sex: Unknown Functional Status Question Answer Note LastModified by Organizat ion Details LastModified Time Do you have difficulty walking or climbing stairs? No [email or web address] Information not available 07/29/2022 Are you able to walk? YESWOREST [email or web address] Information not available 10/21/2020 Are you able to care for yourself? Yes [email or web address] Information not available 07/29/2022 Do you have difficulty dressing or bathing? No [email or web address] Information not available 07/29/2022 What is your exercise level? Moderate [email or web address] Information not available 10/21/2020 Mental Status None [...] ICD10 Code Diagnosis Note [id number] Melodie Jenkins [facility] [address],[place] [address] 08/06/2019 10:35:26 08/07/2019 13:38:12 Vaginitis 82385914 N76.0 Discussed use of mild soap like dove or ivory, cotton underwear w/out dye, hypoallerg enic detergent, wipe from front to back, avoid tub baths, keep perineum clean and dry, d/c use of baby wipes. Encouraged daily intake of yogurt or womens health probiotic. Internal and external affirm collected along with STD culture per patient request. [id number] Melodie Jenkins [facility] [address],[place] [address] 10/02/2019 11:06:56 10/03/2019 09:16:56 test positive 649883660 Z32.01 [id number] Marbin Marc MD [facility] [address],[place] [address] 10/12/2019 16:08:09 10/15/2019 14:20:15 test positive 932292731 Z32.01 This patient is a 29-year-ol d [...] the ultrasound . [id number] Marbin Marc MD [facility] [address],[place] [address] 10/15/2019 13:24:40 10/15/2019 14:36:23 screening 619639261 Z36.9 This patient is a 29-year-ol d female who presents for follow-up onearly gestation. Herpregnan cy was of unknown viability. Ultrasound was performed today. Intrauteri ne gestationa l sac and yolk sac were observed.T his is fairly consistent with her suspectedg estational age.She has no complaints . No cramping or bleeding. She will follow-up in 2 weeks. [id number] [facility] [address],[place] [address] 10/15/2019 13:25:12 10/15/2019 17:30:58 Uncertain viability of 040113339 O36.80X9 Z3A.01 [id number] [facility] [address],[place] [address] 10/29/2019 15:24:56 10/29/2019 16:21:39 Uncertain viability of 770490303 O36.80X9 Z3A.01 [id number] Marbin Marc MD [facility] [address],[place] [address] 10/29/2019 15:25:16 10/29/2019 17:40:59 Crohn's disease 76718738 K50.90 This patient is a 29-year-ol d [...] initial OB. We talked about genetic screening. [id number] Melodie Jenkins [facility] [address],[place] [address] 11/05/2019 17:25:37 11/05/2019 22:15:29 test positive 133524400 Z32.01 Risk factors addressed: Tobacco Cessation, Safe [...] annual well woman examinatio n and address [facility] . [id number] Shanita Negrete CNM [place] [address],[place] [address] 05/14/2020 16:55:26 05/20/2020 12:21:48 Amenorrhea 83385604 N91.2 [id number] Fadumo Cruz [facility] [address],[place] [address] 05/14/2020 16:49:09 05/14/2020 17:28:37 screening 778505820 Z36.87 This patient is a 29-year-ol d female who presents for follow-up onearly gestation. Herpregnan cy was of unknown viability. Ultrasound was performed today. Intrauteri ne gestationa l sac and yolk sac were observed.T his is fairly consistent with her suspectedg estational age.She has no complaints . No cramping or bleeding. She will follow-up in 2 weeks. [id number] Marbin Marc MD [facility] [address],[place] [address] 06/10/2020 14:41:22 06/10/2020 16:08:51 Tachycardia 5159142 R00.0 This patient is a 29-year-ol d [...] this patient s visit, including available hand external relations director upon arrive, temperelliotur e check and being asked a series of screening questions. All staff wore face coverings during this encounter, as well as provided additional cleaning and sanitizing of all surfaces, including countertop s, pens, chairs, door handles, light switches, etc, prior to and following the patient s visit. Orthostati c hypotension 18931975 I95.1 Headache 02865893 R51.9 [id number] [facility] [address],[place] [address] 06/23/2020 09:35:05 06/23/2020 10:17:22 screening 954355801 Z36.82 This patient is a 29-year-ol d female who presents for follow-up onearly gestation. Herpregnan cy was of unknown viability. Ultrasound was performed today. Intrauteri ne gestationa l sac and yolk sac were observed.T his is fairly consistent with her suspectedg estational age.She has no complaints . No cramping or bleeding. She will follow-up in 2 weeks. [id number] Marbin Marc MD [facility] [address],[place] [address] 06/23/2020 09:35:51 06/23/2020 13:22:37 Routine care 720916185 Z34.91 Headache 53112184 R51.9 [id number] [facility] [address],[place] [address] 07/21/2020 11:02:28 07/21/2020 12:21:49 Routine care 323610402 Z34.92 [id number] [facility] [address],[place] [address] 08/12/2020 12:15:27 08/12/2020 12:42:58 Urinary tract infectious disease 90255063 N39.0 [id number] [facility] [address],[place] [address] 08/18/2020 13:55:21 08/18/2020 15:22:57 Routine care 845698630 Z34.92 [id number] [facility] [address],[place] [address] 08/18/2020 13:54:38 08/18/2020 15:05:57 screening for malformation 454139226 Z36.3 92202 [facility] [address],[place] [address] 09/22/2020 13:55:52 09/22/2020 15:22:24 Routine care 605105200 Z34.92 [id number] Janessa Finley [facility] [address],[place] [address] 09/22/2020 13:54:28 09/22/2020 14:56:16 Excessive growth affecting management of mother 35811083 O36.62X0 Z3A.24 11729 [facility] [address],[place] [address] 10/21/2020 13:40:04 10/21/2020 16:44:29 Routine care 780841968 Z34.92 [id number] Marbin Marc MD [facility] [address],[place] [address] 11/01/2020 12:36:48 11/01/2020 13:17:16 Routine care 899975587 Z34.91 Crohn's disease 91609419 K50.90 This patient is a 29-year-ol d female who presents forfollow- up onfirst trimesterI UP. She has Crohn's disease. [facility]. She has a 7-week 4-dayIUPto day. An ultrasound was performed. We reviewed those results.Liat coffey is doing well. She had a recent flare of her Crohn's. She is doing well now.We discussed various aspects of care. We discussed monitoring / testing.Liat coffey return in 5 weeks for initial OB. We talked about genetic screening. [id number] Shanita Negrete CNM [facility] [address],[place] [address] 11/21/2020 14:02:00 11/21/2020 16:40:13 Routine care 273538715 Z34.93 [id number] Marbin Marc MD [facility] [address],[place] [address] 12/02/2020 10:49:04 12/02/2020 12:03:22 Routine care 022385950 Z34.91 Hemorrhoids 38129779 K64 .9 [id number] Melodie Jenkins [facility] [address],[place] [address] 12/16/2020 09:47:06 12/16/2020 23:14:17 Routine care 935167927 Z34.92 [id number] [facility] [address],[place] [address] 12/16/2020 09:47:41 12/16/2020 11:48:06 Maternal obesity complicating , childbirth and the puerperium, antepartum 4079372996 07 O99.213 [id number] [facility] [address],[place] [address] 12/16/2020 09:49:49 12/16/2020 11:48:32 Pre-existing maternal disease complicating 9117870166 6106 O99.891 [id number] [facility] [address],[place] [address] 12/19/2020 11:17:29 12/19/2020 13:08:12 Maternal obesity complicating , childbirth and the puerperium, antepartum 0073829311 07 O99.213 16519 [facility] [address],[place] [address] 12/19/2020 12:47:08 12/19/2020 14:07:49 Abnormal heart rate 459399747 O36.8330 Z3A.37 [id number] Fadumo Cruz [facility] [address],[place] [address] 12/23/2020 09:38:51 12/23/2020 10:40:59 Pre-existing maternal disease complicating 7503574912 6106 O99.213 Z3A.38 43536 [facility] [address],[place] [address] 12/23/2020 09:39:10 12/23/2020 12:22:11 Maternal obesity complicating , childbirth and the puerperium, antepartum 4349667646 07 O99.213 95215 Марина Morgan MD [facility] [address],[place] [address] 12/23/2020 09:39:23 12/23/2020 12:52:32 Routine care 908879620 Z34.83 [id number] [facility] [address],[place] [address] 12/29/2020 14:28:49 12/29/2020 15:50:41 Routine care 362181506 Z34.92 [id number] [facility] [address],[place] [address] 12/29/2020 13:29:42 12/29/2020 14:28:54 Maternal obesity complicating , childbirth and the puerperium, antepartum 3828632349 07 O99.213 12518 Gerriaugusto Gary [place] [address],[place] [address] 12/29/2020 14:58:47 12/29/2020 16:29:49 Maternal obesity complicating , childbirth and the puerperium, antepartum 7567968842 07 O99.213 [id number] [facility] [address],[place] [address] 01/07/2021 11:52:57 01/07/2021 14:56:14 -induced hypertension 4037388795 9100 O13.9 PIH precaution s given. RTC for routine post visit. Pt desires tubal ligation. Discussed procedure risks and benefits. Will send to surgery scheduling . 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 Has only been taking 50mg and feels it works well for her. Female sterilization 608 79602 Z30.2 [id number] Marbin Marc MD [facility] [address],[place] [address] 01/19/2021 09:46:40 01/19/2021 10:50:08 Infection of uterus 848899888 N71.9 This patient is a 30-year-ol d [...] up in 5 days for routine follow-up. [id number] Melodie Coronadovicki [facility] [address],[place] [address] 01/26/2021 11:56:15 01/27/2021 19:45:23 state 95888759 Z39.2 Continue to watch for signs/symp toms [...] paper copy of today's plan if desired [id number] Marbin Marc MD [facility] [address],[place] [address] 02/10/2021 15:49:50 02/10/2021 17:06:15 Female sterilization 10057969 Z30.2 this patient is a 30-year-ol d female who desires female sterilizat ion. We have agreed to perform laparoscop ic bilateral salpingect natasha. She understand s the risks, benefits, and alternativ es. She has completed the informed consent process and is ready to proceed. [id number] Melodie Jenkins [facility] [address],[place] [address] 02/24/2021 14:20:01 02/24/2021 15:30:03 Contraception care management 476590710 Z30.9 Decided against tubal d/t chrons. Pt would like to start p.o.p. Discussed importance of taking at the same time every day. Also informed that it may not be as effective as estrogen containing pills. RTC in 3 months for wwe with med check. [id number] [facility] [address],[place] [address] 04/29/2021 10:35:14 04/30/2021 17:08:00 Pain of breast 83810307 N64.4 Due to descriptio n of pain being pins and needles will treat for yeast with a 2 week round of diflucan. If no resolution of symptoms will need to schedule imaging. Pt will return in 1-2 weeks for follow up. [id number] Marbin Marc MD [facility] [address],[place] [address] 06/04/2021 11:21:03 06/04/2021 17:42:14 [id number] Melodie Jenkins [facility] [address],[place] [address] 07/29/2022 09:30:44 07/29/2022 10:04:29 Vaginitis 10901035 N76.0 Discussed use of mild soap like dove or ivory, cotton underwear w/out dye, hypoallerg enic detergent, wipe from front to back, avoid tub baths, keep perineum clean and dry, d/c use of baby wipes. Encouraged daily intake of yogurt or womens health probiotic. Internal and external affirm collected along with STD culture per patient request. [id number] VANESSA Hinds [facility] [address],[place] [address] 06/09/2023 09:14:02 06/09/2023 10:03:07 Gynecologic examination 08296956 Z01.419 WWEpap updateddec lined STI screeningr outine [...] of today's plan if desired. Irregular periods 095860 07 N92.6 UPT (-)labs orderedgiv en this is the first occurrence , continue to track cycles and return if no period for 3 months. Discussed importance of periods every 3 months for endometria l protection . [id number] VANESSA Hinds [facility] [address],[place] [address] 06/22/2023 10:03:28 06/22/2023 11:08:01 Contraception care management 326138476 Z30.9 Discussed all control options in great [...] Disla Member ID Guarantor Name 04/29/2021 1 [facility] [employer] [id number] Marlo Sykes [id number] Agnieszka Sykes 06/04/2021 1 [facility] [employer] [id number] Marlo Sykes [id number] Agnieszka Simmonst 07/29/2022 1 [facility] [employer] [id number] Marlo Sykes [id number] Agnieszka Simmonst 06/09/2023 1 [facility] [employer]EMENT [id number] Marlo Sykes [id number] Agnieszka Simmonst 06/22/2023 1 [facility] [employer]ITS [employer] [id number] Marlo Sykes [id number] Agnieszka Sykes Notes Date Note Type Note Provider Name and Address Organization Details Recorded Time 04/29/2021 text/html Pain in left millie ast while . Usually starts a few minutes into the feeding. Feels like pins and needles. Very sharp. No lumps, no redness, no tender areas. No fever or flu like symptoms. Melodie Jenkins [facility] 05/18/2021 18:45:43 07/29/2022 text/html Vaginal/Vulvar ProblemReported bypatient.Notes:Water y discharge, occasional odor, occasional itching Melodie waller [facility] 07/29/2022 09:54:27 06/09/2023 text/html Annual GYNReport [...] a month VANESSA Hinds [address], [place], [address], [facility] 06/09/2023 10:02:07 06/22/2023 text/html 32yo [id number] ents for BC consultwould like BC to prevent and period regulationdenies h/o DVT/PE, HTN, Stroke/OH, cancer, liver disease, or migraine with auramedical hx: Crohn's Hilaria Alarcon, [facility] [address], [place], [address], [place] [facility] 06/22/2023 11:01:35 OBGyn Episode Ob Episode Information Episode Created Date Number of Fetuses Patient Bloodtype Patient rh Status Prepregnancy Weight lbs Domestic Partner Domestic Partner Phone Father Name Senior Java Web Application Developer Status 08/06/19 1 CLOSED Fetus Data First [...] Domestic Partner Domestic Partner Phone Father Name Senior Java Web Application Developer Status 08/06/19 1 CLOSED Fetus Data First [...] Domestic Partner Domestic Partner Phone Father Name Senior Java Web Application Developer Status 08/06/19 20 1 CLOSED Fetus Data [...] Domestic Partner Domestic Partner Phone Father Name Senior Java Web Application Developer Status 06/24/19 21 1 CLOSED Fetus Data [...] Domestic Partner Domestic Partner Phone Father Name Senior Java Web Application Developer Status 06/24/19 21 1 O Positive 207 [...] Date Resolution Snomed Code Not e Obesity 214348127 37 week an tenatal testing weekly Past history of hemorrhage 973913888 Headache MEDICATION 02030349 Rxed raji icet Dyspnea 398665402 holter Crohn's disease 10/29/2019 25390708 s/p bowel resection, no meds - MFM- 08/20 u/s & OV- 08/15 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 Anxiety 14656409 sertraline Candelario Calculation Initial Candelario Date Initial [...] Weight in lbs Pre/Post Dialysis Refused Weight 208.378775851299 BP Diastolic BP Location Tested BP Systolic [...] Weight in lbs Pre/Post Dialysis Refused Weight 203.90479521784 BP Diastolic BP Location Tested BP Systolic [...] Weight in lbs Pre/Post Dialysis Refused Weight 203.40763838807 BP Diastolic BP Location Tested BP Systolic [...] Weight in lbs Pre/Post Dialysis Refused Weight 208.043956506265 BP Diastolic BP Location Tested BP Systolic [...] Weight in lbs Pre/Post Dialysis Refused Weight 207.275199505781 BP Diastolic BP Location Tested BP Systolic [...] Weight in lbs Pre/Post Dialysis Refused Weight 211.763222104266 BP Diastolic BP Location Tested BP Systolic BP Type 82 128 Fetus Heart Rate Present A 145 Fetus Movement A Yes Comments 2+glucose, just ate, Flowsheet Date 11/21/2020 Donahue Score Blood Edema Fundus Height Fundus Units Glucose Ketones Leukocytes Nitrite Labor Signs Protein Cervic Dilation Cervic Effacement Cervic Station neg trace trace Type Weight in lbs Pre/Post Dialysis Refused Weight 211.700635878568 BP Diastolic BP Location Tested BP Systolic [...] Weight in lbs Pre/Post Dialysis Refused Weight 215.637895563806 BP Diastolic BP Location Tested BP Systolic [...] Present Fetus Movement Comments Flowsheet Date 12/16/2020 Donaheu Score Blood Edema Fundus Height Fundus Units [...] Weight in lbs Pre/Post Dialysis Refused Weight 213.289722317730 BP Diastolic BP Location Tested BP Systolic [...] Weight in lbs Pre/Post Dialysis Refused Weight 216.133359350200 BP Diastolic BP Location Tested BP Systolic [...] Weight in lbs Pre/Post Dialysis Refused Weight 218.306398002768 BP Diastolic BP Location Tested BP Systolic [...] Weight in lbs Pre/Post Dialysis Refused Weight [id number] BP Diastolic BP Location Tested BP Systolic [...] Estim ated Date of Delivery false Thalassemia (Kuwaiti, Cape Verdean, Mediterranean, Or Background): MCV < 80 false Neural Tube Defect (Meningomyelocele, Spina Bifi da, Or Anencephaly) false Congenital Heart Defect false Down Syndrome false Andrea-Sachs (eg, Pentecostal, Cajun, Cymraes-San German) f alse Renetta Disease false Sickle Cell Disease Or Trait () false Hemophilia Or Other Blood Disorders false Muscular Dystrophy false Cystic Fibrosis false Sweet Grass's Chorea false Intellectual Disability/Autism false If Yes, [...]
--- OUTSIDE RECORDS SUMMARY | 2024-08-01 16:10 | XMS_ITS | Clinical Summary ---
Author Organization [facility] Address [address] [place] [address] Phone Care Team Providers Care Bed [place] Maker Name Role Phone Unavailable Primary Care Provider [...] Care Team (Late st Contact Info) Description 08/16/2024 8:30 AM CDT Appointment [facility] [address] [place] [phone] Mary Lombardo, WEDDING PLANNER [address] [facility]. [address] [place] [address] Health Maintenance Due Date Last [...] patient's age to complete this topic Insurance [facility] [id number] [facility]
--- OUTSIDE RECORDS SUMMARY | 2024-08-01 16:10 | XMS_ITS | Encounter Summary ---
Author Organization [facility] Address [address] [facility] [place] [address] Care Team Providers Care Rn Camp Name Role Phone Enoch Loyd MD Primary Care Provider Helen Garber Primary Care Provider Encounter Details Date Type Department Care Team (Late st Contact Info) Description 03/30/2013 Telephone [facility] Women's Health Maternal & Care [address] [place] [id number] Andreina Irving, [facility] [address] [place] [address] [phone] Social History Tobacco Use Types Packs/Day Years Used Date Smoking Tobacco: Never Smokeless Tobacco: Never Alcohol Use Standard Drinks/Week Comments No 0 (1 standard drink = 0.6 oz pur e alcohol) Comments Yes Sex and Gender Information Value Date Recorded Sex Assigned at Not on file 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
== END 2024-08-01 14:52 | disposition home or self-care (01) ==
LOC: ANHLAB 14:54
PROVIDERS: PCP Nurse Practitioner Family; Visit Provider Surgery Plastic and Reconstructive Surgery
DX: N64.9 Disorder of breast, unspecified (principal)
CPT/HCPCS: 87015; 87070; 87075; 87116; 87181; 87205; 87206

== ENCOUNTER 2024-08-29 00:17 | Day surgery (SDC) | payer OTHER, SELFPAY ==
[2024-08-27 13:58] VITALS: BMI 30.8
--- NOTE | 2024-08-27 13:59 | PC.NURSE ---
Report to the Outpatient Waiting Room, entrance under the green pavilion located off [facility], at time _0700_ on date _[phone]_. Planned Procedure Time: _0900_. Time changes happen often and if your time is changed the preop area will call you the afternoon before. - You and your visitor will be asked to self-screen and do not enter if you have any COVID symptoms. Please call surgeon if you need to reschedule. - A mask is optional within the hospital at this time. Patients may have clear liquids (water, carbonated beverages, clear teas, apple juice) until 3 hours prior to surgery with a maximum of 20 ounces. - No food from midnight until time of surgery and no smoking, or chewing tobacco (or any form of nicotine). No chewing gum, candy or mints. Take only the following medications with a SIP of water on the morning of surgery: ___Doxycycline____ DO NOT STOP ANY OF YOUR OTHER PRESCRIPTION MEDICATIONS PRIOR TO SURGERY EXCEPT THE FOLLOWING Hold all vitamins and supplements for 3 days per anesthesiologist. Medications to discontinue per physician Date to take last dose Please no make-up, nail sao tomean, hairspray, perfume, deodorant, or body powder the day of surgery. No jewelry (including any body piercings) or valuables the day of surgery, leave them at home. Please take a shower or bath the night before, or the morning of, surgery with an antibacterial soap. Wear comfortable, loose fitting clothing. - Jewelry must be removed prior to entering the operating room. Rings and piercings that are not removed may be cut off. - The hospital will not accept responsibility for valuables. - Please leave all valuables, including medications, at home the day of surgery. If you are going home after surgery, a licensed horse and wagon driver must drive you home. - NO public transportation without another adult if you receive anesthesia. - We recommend that an adult stay with you for 24 hours following discharge. - We also recommend that you do not drive, make important decision, drink alcoholic beverages, or take any drugs that were not prescribed by your health care provider for at least 24 hours after your discharge time. Follow any additional instructions given to you from your surgeon. Telephone instructions given to __Agnieszka___and asked if any additional questions and then verbalized understanding. Patient advised to call surgeon office or pre surgery nurse liaison [phone] if any additional questions.
[2024-08-29] VITALS (8 sets, daily range): BP systolic 117–137; BP diastolic 71–94; PULSE 70–118; RESP 14–23; TEMP 36.3–36.5; O2SAT 92–100
--- OUTSIDE RECORDS SUMMARY | 2024-08-29 00:19 | XMS_ITS | Encounter Summary ---
Author Organization [facility] Address [address] [place] [address] Care Team Providers Care Grain Farmworker Name Role Phone Enoch Loyd MD Primary Care Provider [phone] Helen Garber Primary Care Provider Encounter Details Date Type Department Care Team (Late st Contact Info) Description 12/27/2023 Lab Requisition [facility] - DermPath Lab [address] [facility], [place] [address] John Crenshaw MD [address] [place] [address] Social History Tobacco Use Types Packs/Day Years Used Date Smoking Tobacco: Never Smokeless Tobacco: Never Alcohol Use Standard Drinks/Week Comments No 0 (1 standard drink = 0.6 oz pur e alcohol) Comments Unknown Sex and Gender Information Value Date Recorded Sex Assigned at Not on file Legal Sex Female 5:39 AM COMMUNITY HEALTH AGENT Gender Identity Not on file Sexual Orientation Not on file documented as of this encounter Plan of Treatment Not on file documented as of this encounter Procedures Procedure Name Priority Date/Time Associated Diagnosis Comments DERMATOPATHOLOGY Routine 12/26/2023 12:0 0 AM CDT documented in this encounter Results * DERMATOPATHOLOGY (12/26/2023 12:00 AM CDT) Case Report Dermatopathology Report Case: [id number] Authorizing Provider: John Crenshaw MD Collected: 12/26/2023 12:00 AM Ordering Location: [facility] - Received: 12/27/2023 04:36 [...] characteristic determined by the Dermatopathology Laboratory at [facility], directed by Dr. Belle Prater. These tests need not be, and therefore are not, approved by the [place] Food and Drug Administration. The tests are used for clinical purposes. Billing Codes Specimen Charges Stain Charges 61345 1 [id number] 81947 1 1 4 4:58 PM CDT DERMATOPATHOLOGY LABORATORY Embedded Images 4 4:58 PM CDT DERMATOPATHOLOGY LABORATORY Pathology/Cytolog y TISSUE SPECIMEN FROM SKIN / Unknown 12/26/2023 12/27/2023 4:36 PM CDT John Crenshaw MD LAB - PATHOLOGY/CYTOLOGY ORDERA BLES Final Result DERMATOPATHOLOGY LABORATORY [facility] - Department of Dermatology [facility] [address] [place] [address], [address]rd Floor [address] [phone] documented in this encounter Visit Diagnoses Not on filedocumented in this encounter Care Teams Grain Farmworker Relationship Specialty Start Date End Date Enoch Loyd MD [address] [place] [address] [address] [place] [address] PCP - General Internal Medicine 02/28/13 06/18/24 Helen Garber APRN-COLOR SEPARATION PHOTOGRAPHER [address] [facility] [address] [place] [phone] PCP - General Nurse Practitioner 06/19/24 documented as of this encounter
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
--- OUTSIDE RECORDS SUMMARY | 2024-08-29 00:20 | XMS_ITS | Encounter Summary ---
Author Organization [facility] Address [address] [place] [address] Care Team Providers Care Cylinder Inspector Name Role Phone Enoch Loyd MD Primary Care Provider [phone] Helen Garber Primary Care Provider Encounter Details Date Type Department Care Team (Late st Contact Info) Description 03/30/2013 Telephone [facility] Women's Health Maternal & Care [address] [place] [id number] Andreina Irving, [facility] [place] [address] [place] [address] [phone] Social History Tobacco Use Types Packs/Day Years Used Date Smoking Tobacco: Never Smokeless Tobacco: Never Alcohol Use Standard Drinks/Week Comments No 0 (1 standard drink = 0.6 oz pur e alcohol) Comments Yes Sex and Gender Information Value Date Recorded Sex Assigned at Not on file Legal Sex Female 5:39 AM WATER TECHNICIAN Gender Identity Not on file Sexual Orientation Not on file documented as of this encounter Plan of Treatment Not on file documented as of this encounter Visit Diagnoses Not on filedocumented in this encounter Care Teams Cylinder Inspector Relationship Specialty Start Date End Date Enoch Loyd MD [address] [place] [address] [address] [place] [id number] PCP - General Internal Medicine 02/28/13 06/18/24 Helen Garber APRN-PROCESS STRIPPER [address] [phone] PCP - General Nurse Practitioner 06/19/24 documented as of this encounter
--- OUTSIDE RECORDS SUMMARY | 2024-08-29 00:20 | XMS_ITS | Data Portability ---
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 Patient will come back in a year unless there are new symptoms. [email or web address] Not available 05/22/2021 16:29:38 06/09/2023 06/09/2023 Annual gynecological exam performed. Patient will come back in a year unless there are new symptoms. [email or web address] Not available 06/09/2023 09:16:50 Plan of Treatment Reminders Order Date Submit Date Provider Last Modified By Organization Details Last Modified Time Details Appointments None recorded. Lab test, urine 2023 [facility], [address], [place], [address], 4 09:45:37 TSH, serum or plasma 2023 [facility] (Lab), [address], [place], [address], 4 01:19:47 prolactin, serum 2023 024 [facility] (Lab), [address], [place], [address], 4 01:19:46 FSH (follicle-s timulating hormone), serum 2023 024 [facility] (Lab), [address] [facility], [place], [address], 4 01:19:47 estradiol, serum 2023 024 [facility] (Lab), [address] [place], [address], 4 01:19:45 testosteron e free/testos terone total, ratio, serum 2023 024 [facility] (Lab), [address] [facility], [place], [address], 4 01:19:48 lh (luteinizin g hormone), serum 2023 024 [facility] (Lab), [address] [facility], [place], [address], 4 01:19:46 HbA1c (hemoglobin A1c), blood 2023 024 [facility] (Lab), [address] [place], [address], 4 01:19:47 Referral None recorded. Procedures None recorded. Surgeries None recorded. Imaging None recorded. Medication Orders Slynd 4 mg (28) tablet 2023 024 [id number], [address], [place], [address], 4 11:00:57 Diflucan 100 mg tablet 2021 022 [email or web address] [id number], [address] [facility], [place], [place], [id number], 3 09:41:09 Patient TargetsNo targets recorded. Patient [...] or kits canno t be used [facility] . Femal e Estra diol Range s: Folli cular phase 12.4- 233 pg/mL Ovula tion phase 41.0- 398 pg/mL Lutea l phase 22.3- 341 pg/mL Postm enopa usal< 5-138 pg/mL Healt hy Pregn ant Women 1st Trime ster1 54-32 43 pg/mL 2nd Trime ster1 561-2 1280 pg/mL 3rd Trime ster8 525-> 37890 pg/mL Not Available [facility] (Lab) [address] [facility], [place], [address], 06/14/2023 01:19:45 06/09/19 24 06/09/2023 PROLA CTIN prolactin, total 15.30 NG/mL 4.79-2 3.30 This assay was perfo rmed using [employer] ratio n reage nts and test kits. Value s obtai kaelyn with other assay metho ds or kits canno t be used [facility] . Not Available [facility] (Lab) [address] [facility], [place], [address], 06/14/2023 01:19:46 06/09/19 24 06/09/2023 LH (LUTE NIZIN G HORMO NE) LH 16.2 mIU/m L This assay was perfo rmed using [employer] ratio n reage nts and test kits. Value s obtai kaelyn with other assay metho ds or kits canno t be used [facility] . Femal es Mid-F ollic ular: 2.4-1 2.6 mIU/m L Mid-C ycle: 14.0- 95.6 mIU/m L Mid-L uteal : 1.0-1 1.4 mIU/m L Postm enopa use: 7.7-5 8.5 mIU/m L Not Available [facility] (Lab) [address], [place], [address], 06/14/2023 01:19:46 06/09/19 24 06/09/2023 FSH FSH [...] use: 25.8- 134.8 mIU/m L Not Available [facility] (Lab) [address], [place], [address], 06/14/2023 01:19:47 06/09/19 24 06/09/2023 TSH, REFLE X FREE T4 TSH 2.70 uIU/m L 0.30-5 .33 Not Available [facility] (Lab) [address], [place], [address], 06/14/2023 01:19:47 06/09/19 24 06/09/2023 HEMOG LOBIN [...] >8.0% Actio n sugge sted Not Available [facility] (Lab) [address], [place], [address], 06/14/2023 01:19:47 06/09/19 24 06/09/2023 TESTO STERO NE, FREE( DIALY SIS) AND TOTAL (LC/M S/MS) testosterone , total 192 NG/dL 2-45 high For addit ional infor dev pinto e refer to http: //[facility] yocasta moses.que stdia gnost ics.c om/fa q/ Total Testo stero neLCM SMSFA Q165 (This link is being provi ded for infor matio nal/ educa shlomo l purpo ses only. ) This test was devel oped and its stevenson tical perfo rmanc e gina cteri stics have been deter mined by [employer] [place], [place]. It has not been clear ed or appro ty by the U.S. Food and Drug Admin istra tion. This assay has been valid ated pursu ant to the CLIA regul ation s and is used for clini maricel purpo ses. Not Available [facility] (Lab) [address] [facility], [place], [address], 06/14/2023 01:19:48 06/09/19 24 06/09/2023 TESTO STERO NE, FREE( DIALY SIS) AND TOTAL (LC/M S/MS) testosterone , free 23.0 pg/mL 0.1-6. 4 high This test was devel oped and its stevenson tical perfo rmanc e gina cteri stics have been deter mined by [employer] [place], [place]. It has not been clear ed or appro ty by the U.S. Food and Drug Admin istra tion. This assay has been valid ated pursu ant to the CLIA regul ation s and is used for clini maricel purpo ses. Perfo rming Organ izati on [facility] n: Site ID: AMD Name: [employer] ostjohanne s Tejinder ls [place] tut Addre ss: [id number] [place], [place] Direc tor: Robbin Bosch MD PhD Not Available [facility] (Lab) [address], [place], [address], 06/14/2023 01:19:48 06/09/19 24 06/09/2023 pregn naun test, urine HCG negati ve Not Available [facility] [address], [place], [address], 06/09/2023 09:42:24 Result Notes None recorded. Problems Name Problem SNOMED Code Status Onset Date Resolution Date Notes Provider Name and Address Organization Details Recorded Time Crohn's disease 66006538 Completed 201909/08/2021 Bridget Cruz [facility], [facility] 17:34:30 Syphilis test finding 127272204 Completed 201405/14/2020 Encntr screen for infectio ns w sexl mode of transmis s;Practi ce ID: 0001 Patricia Thomas [facility] 18:43:37 Secondar y amenorrh ea [id number] Completed 201405/14/2020 Secondar y amenorrh ea;Pract ice ID: 0001 Patricia Thomas [facility] 18:43:22 Pregnanc y detectio n examinat ion Completed 201405/14/2020 Encounte r for pregnanc y test, result positive ;Practic e ID: 0001 Patricia Thomas [facility], [facility] 18:43:00 Generali zed abdomina l tenderne ss [id number] Completed 201405/14/2020 Generali zed abdomina l tenderne ss;Pract ice ID: 0001 Patricia Thomas [facility] 18:42:06 Abdomina l pain [id number] Completed 201405/14/2020 Unspecif ied abdomina l pain;Pra ctice ID: 0001 Patricia waller, [facility] 18:41:06 Gestatio n period, 9 weeks 130368 Completed 201405/14/2020 9 weeks gestatio n of pregnanc y;Practi ce ID: 0001 Patricia waller, [facility] 18:42:42 Normal pregnanc y in multigra camille [id number] 71782 Completed 201505/14/2020 Encounte r for suprvsn of normal pregnanc y, first trimeste r;Practi ce ID: 0001 Patricia waller, [facility] 18:42:55 Pregnanc y, childbir th and puerperi um finding Completed 201505/14/2020 Oth pregnanc y related conditio ns, third trimeste r;Practi ce ID: 0001 Patricia waller, [facility] 18:41:24 Gestatio n period, 24 weeks [id number] Completed 201505/14/2020 24 weeks gestatio n of pregnanc y;Practi ce ID: 0001 Patricia waller, [facility] 18:42:13 False labor before 37 complete d weeks of gestatio n [id number] 1289834 Completed 201505/14/2020 False labor before 37 complete d weeks of gest, second tri;Prac navi ID: 0001 Patricia waller, [facility] 18:41:47 Gestatio n period, 25 weeks 86884981 Completed 201505/14/2020 25 weeks gestatio n of pregnanc y;Practi ce ID: 0001 Patricia waller, [facility] 18:42:15 Clinical finding Completed 201512/23/2020 Gastro-e sophagea l reflux disease without esophagi tis;Prac navi ID: 0001 Марина Morgan MD [address], [place], [address], [facility] 11:42:18 prematur e rupture of membrane s 319634982 Completed 201505/14/2020 Pretrm chela ROM, unsp time betw rupt and onst labr, 3rd tri;Prac navi ID: 0001 Patricia waller, [facility] 18:43:13 Gestatio n period, 29 weeks [id number] Completed 201505/14/2020 29 weeks gestatio n of pregnanc y;Practi ce ID: 0001 Patricia waller, [facility] 18:42:24 Generali zed abdomina l pain 769336510 Completed 201505/14/2020 Generali zed abdomina l pain;Pra ctice ID: 0001 Patricia waller, [facility] 18:42:04 Clinical finding Completed 201505/14/2020 state, incident al;Pract ice ID: 0001 Patricia waller, [facility] 18:41:26 Complica tion of pregnanc y, childbir th and/or puerperi 965643910 Completed 201505/14/2020 Oth diseases and conditio ns compl preg/chl dbrth;Pr actice ID: 0001 Patricia waller, [facility] 18:43:44 Gestatio n period, 30 weeks 66412183 Completed 201505/14/2020 30 weeks gestatio n of pregnanc y;Practi ce ID: 0001 Patricia waller, [facility] 18:42:27 Gestatio n period, 32 weeks 2020947 Completed 201505/14/2020 32 weeks gestatio n of pregnanc y;Practi ce ID: 0001 Patricia Martha waller, [facility] 18:42:29 Urinary tract infectio us disease 24226484 Completed 201505/14/2020 Urinary tract infectio n, site not specifie d;Practi ce ID: 0001 Patricia Martha waller, [facility] 18:43:46 Pregnanc y, childbir th and puerperi um finding Completed 201505/14/2020 Encntr for suprvsn of normal first preg, third trimeste r;Practi ce ID: 0001 Patricia waller, [facility] 18:43:[address] Concept Completed 201505/14/2020 Decrease d movement s, third trimeste r, unsp;Pra ctice ID: 0001 Patricia Thomas [facility], [facility] 18:43:27 Gestatio n period, 35 weeks 21037857 Completed 201505/14/2020 35 weeks gestatio n of pregnanc y;Practi ce ID: 0001 Patricia Thomas [facility], [facility] 18:42:34 Gestatio n period, 36 weeks 14589890 Completed 201505/14/2020 36 weeks gestatio n of pregnanc y;Practi ce ID: 0001 Patricia Thomas [facility], [facility] 18:42:36 Term pregnanc y delivere d [id number] Completed 201505/14/2020 Encounte r for full-ter m uncompli cated delivery ;Practic e ID: 0001 Patricia waller, [facility] 18:43:39 Single live from singleto n pregnanc y [id number] Completed 201505/14/2020 Single live ;Pr actice ID: 0001 [address] [facility] 18:43:24 Lochia finding Completed 201505/14/2020 Encounte r for routine postpart um follow-u p;Practi ce ID: [address] [facility] 18:42:[address] Concept Completed 201505/14/2020 Encntr for general adult medical exam w/o abnormal findings ;Practic e ID: [address] [facility] 18:43:30 Acute vaginiti s 45260621 Completed 201605/14/2020 Acute vaginiti s;Practi ce ID: 0001 Patricia [facility] 18:41:08 Educatio n Completed 201605/14/2020 Encounte r for oth general cnsl and advice on contrace ption;Pr actice ID: [address] [facility] 18:41:36 Pregnanc y test negative [id number] Completed 201605/14/2020 Encounte r for pregnanc y test, result negative ;Practic e ID: 0001 Patricia [facility] 18:43:02 Uterine size for dates discrepa ncy Completed 201605/14/2020 Uterine size-joanie e discrepa ncy, first trimeste r;Practi ce ID: 0001 Patricia [facility] 18:43:49 Finding of contents of cervix 984898092 Completed 201605/14/2020 Weeks of gestatio n of pregnanc y not specifie d;Practi ce ID: 0001 Patricia Martha waller, [facility] 18:41:56 Amenorrh ea 31103589 Completed 201605/14/2020 Amenorrh ea, unspecif ied;Prac navi ID: 0001 Patricia Thomas null, [facility] 18:41:12 Threaten ed miscarri age 65904078 Completed 201605/14/2020 Threaten ed ;Practic e ID: 0001 Patricia Martha waller, [facility] 18:43:41 Antenata l screenin g Completed 201605/14/2020 Encounte r for antenata l screenin g for nuchal transluc ency;Pra ctice ID: 0001 Patricia waller, [facility] 18:41:15 Gestatio n period, 12 weeks 21874343 Completed 201605/14/2020 12 weeks gestatio n of pregnanc y;Practi ce ID: 0001 Patricia Martha waller, [facility] 18:42:08 Evaluati on finding Completed 201605/14/2020 Hematuri a, unspecif ied;Prac navi ID: 0001 Patricia Thomas null, [facility] 18:41:42 Gestatio n period, 18 weeks 81464103 Completed 201605/14/2020 18 weeks gestatio n of pregnanc y;Practi ce ID: 0001 Patricia waller, [facility] 18:42:11 Antenata l screenin g for malforma tion Completed 201605/14/2020 Encounte r for antenata l screenin g for malforma tions;Pr actice ID: 0001 Patricia waller, [facility] 18:41:18 Pregnanc y, childbir th and puerperi um finding Completed 201705/14/2020 Oth pregnanc y related conditio ns, second trimeste r;Practi ce ID: 0001 Patricia waller, [facility] 18:41:22 Gestatio n period, 27 weeks 20861332 Completed 201705/14/2020 27 weeks gestatio n of pregnanc y;Practi ce ID: 0001 Patricia waller, [facility] 18:42:20 Prematur e labor [id number] Completed 201705/14/2020 labor without delivery , third trimeste r;Practi ce ID: 0001 Patricia waller, [facility] 18:43:10 Gestatio n period, 28 weeks 20345290 Completed 201705/14/2020 28 weeks gestatio n of pregnanc y;Practi ce ID: 0001 Patricia waller, [facility] 18:42:22 Hemorrha gic complica tion of pregnanc y 362846648 Completed 201705/14/2020 Other hemorrha ge in early pregnanc y;Practi ce ID: 0001 Patricia waller, [facility] 18:42:48 False labor at or after 37 complete d weeks of gestatio n 192165334 Completed 201705/14/2020 False labor at or after 37 complete d weeks of gestatio n;Practi ce ID: 0001 Patricia waller, [facility] 18:41:45 Gestatio n period, 38 weeks 78318999 Completed 201705/14/2020 38 weeks gestatio n of pregnanc y;Practi ce ID: 0001 Patricia waller, [facility] 18:42:38 Gestatio n period, 39 weeks [id number] Completed 201705/14/2020 39 weeks gestatio n of pregnanc y;Practi ce ID: 0001 Patricia waller, [facility] 18:42:[address] Concept Completed 201705/14/2020 Encntr for mason liner exam (general ) (routine ) w/o abn findings ;Practic e ID: 0001 Patricia waller, [facility] 18:43:32 Insertio n of intraute rine contrace ptive device Completed 201705/14/2020 Encounte r for insertio n of intraute rine contrace ptive device;P ractice ID: 0001 Patricia waller, [facility] 18:42:50 Finding of pattern of menstrua l cycle [id number] Completed 201705/14/2020 Excessiv e and frequent menstrua tion with irregula r cycle;Pr actice ID: 0001 Patricia waller, [facility] 18:42:01 Contrace ptive sheath status 242798391 Completed 201705/14/2020 Encounte r for routine checking of intraute rine contrace p dev;Prac navi ID: 0001 Patricia waller, [facility] 18:41:30 Removal of intraute rine device Completed 201905/14/2020 Encounte r for removal of intraute rine contrace ptive device;P ractice ID: 0001 Patricia waller, [facility] 18:43:16 Pregnanc y test positive 920864102 Completed 201405/14/2020 Pregnanc y examinat ion or test, positive result;R ecorded Elsewher e: No Locat ion: [facility] S ource: EHR Senior Caregiver laney: N Practi ce ID: 0001 Seymour lable Time: 11:00:00 AM Patricia Allentz sridhar [facility] 1 18:43:05 Female genital organ symptoms [id number] Completed 201405/14/2020 Pelvic pain;Rec orded Elsewher e: No Locat ion: [facility] S ource: E[facility] Senior Caregiver laney: N Practi ce ID: 0001 Seymour lable Time: 09:30:00 AM [facility] 18:41:50 Dysfunct ional uterine bleeding Completed 201405/14/2020 Other disorder s of menstrua tion and other abnormal bleeding from female genital tract;Re corded Elsewher e: No Locat ion: [facility]ce: [facility]y: N Robertati ce ID: 0001 Seymour lable Time: 03:30:00 PM Patricia Thomas [facility]ridhar [facility] 1 18:41:33 Adult health examinat ion Completed 201405/14/2020 ROUTINE MEDICAL EXAM;Rec orded Elsewher e: No Locat ion: [facility] S ource: [facility] Senior Caregiver laney: N Robertati ce ID: 0001 Seymour lable Time: 01:00:00 PM Patricia Thomas [facility]ridhar [facility] 18:41:10 Pelvic and perineal pain 091069487 Completed 201705/14/2020 Pelvic and perineal pain;Rec orded Elsewher e: No Locat ion: [facility] S ource: [facility] Senior Caregiver laney: N Practi ce ID: 0001 Seymour lable Time: 08:45:00 AM Patricia Thomas [facility]ridhar [facility] 18:42:58 Clinical finding Completed 08/29/ 2018 07/17/2020 Presence of (intraut erine) contrace ptive device;R ecorded Elsewher e: No Locat ion: [facility] S ource: [facility] Senior Caregiver laney: N Practi ce ID: 0001 Seymour lable Time: 02:30:00 PM Rebecca Jacob sridhar, [facility] 12:15:19 Female infertil ity [id number] Completed 201405/14/2020 Female infertil ity;Wilner rded Elsewher e: No Locat ion: [facility] S ource: E[facility] Senior Caregiver laney: N Practi ce ID: 0001 Seymour lable Time: 01:30:00 PM Patricia Thomas [facility], [facility] 18:41:53 Gestatio n period, 33 weeks [id number] Completed 201505/14/2020 33 weeks gestatio n of pregnanc y;Record ed Elsewher e: No Locat ion: [facility] S ource: E[facility] Senior Caregiver laney: N Practi ce ID: 0001 Seymour lable Time: 11:00:00 AM Patricia waller, [facility] 18:42:31 Gestatio n period, 26 weeks [id number] Completed 201505/14/2020 26 weeks gestatio n of pregnanc y;Record ed Elsewher e: No Locat ion: [facility] S ource: E[facility] Senior Caregiver laney: N Practi ce ID: 0001 Seymour lable Time: 02:00:[address] [facility] 18:42:17 Speciali zed medical examinat ion Completed 201405/14/2020 Gynecolo gical Examinat ion;Wilner rded Elsewher e: No Locat ion: [facility] S ource: EHR Senior Caregiver laney: N Practi ce ID: 0001 Seymour lable Time: 01:00:[address] [facility] 18:43:35 Emotiona l state finding Completed 201705/14/2020 Anxiety depressi on;Recor ded Elsewher e: No Locat ion: [facility] S ource: EHR Senior Caregiver laney: N Practi ce ID: 0001 Seymour lable Time: 09:45:00 AM Patricia Thomas [facility], [facility] 18:41:39 Atypical squamous cells of undeterm ined signific ance on cervical Papanico laou smear [id number] Completed 201409/08/2021 Bridget Cruz [facility], [facility] 2 17:34:30 Screenin g for malignan t neoplasm of cervix Completed 201405/14/2020 Pap Smear;Pr actice ID: 0001 Patricia Martha [facility], [facility] 18:43:20 Pregnanc y 60362357 Completed 202001/08/2021 Nicki hicks [facility], [facility] 12:04:31 Headache 82384446 Completed Rxed fioricet Nicki hicks [facility] 12:04:24 Dyspnea 528475386 Completed NL holter Nicki hikcs [facility], [facility] 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 12:04:24 Obesity 390782275 Completed 37 week antenata l testing weekly Nicki hicks [facility], [facility] 1 12:04:24 Ultrasou nd scan abnormal 640618510 Completed cisterna magna borderli ne marya rich at [facility] 11/26- They recommen d brain MRI to evaluate posterio r fossa- Let peds know! Nicki hicks [facility], [facility] 1 12:04:24 Past pregnanc y history of postpart um hemorrha ge 683926404 Completed Nicki Kristendorenecristela hicks [facility], [facility] 1 12:04:24 Anxiety 56905075 Completed sertrali ne Nicki Kristendorenecristela hicks [facility], [facility] 1 12:04:24 Problem Notes None recorded. Procedures Surgical History Date Name Laterality Status Provider Name and Address Organization Details Recorded Time 06/09/19 24 Date of Last Pap Smear completed Elizabeth Childers [facility] 06/09/2023 09:27:05 09/17/19 22 extraction of wisdom tooth completed Patricia Thomas [facility] 07/29/2022 09:41:59 04/18/19 15 excision of colon completed VANESSA Hinds [address], [place], [address], [facility] 06/09/2023 09:36:29 04/18/19 15 appendectomy completed Patricia Thomas [facility] 05/14/2020 19:43:41 Imaging Results None recorded. [...] Prescrib ed Elsewher e: No Locat ion: [facility] M odify By: mayo case DateTime : 12/25/19 16 01:00:00 PM Not Available Not Available Not Available sertralin e 100 mg tablet 07/29 completed Not Available Not Available Not Availa [id number]|2024-08-29 08:04:00|2024-08-29 08:04:00|P.PNAN_ITS|TANOF|Health Information Management|[id number]|"Anes - Initial Pre Proc Eval Procedure: Operation Date: 08/29/24 09:00 Proposed Procedures p Right Breast Implant Debridement, Possible Implant Exchange - Ifeanyi Lamb MD Date/Time: 08/29/24 08:04 Surgeon: Ifeanyi Lamb MD Pre Op Diagnosis: hx of breast augmentation Patient Data Age: 34 Gender: F Height: 1.65 m Weight: 94.6 kg Last Vital Signs Temp 36.5 C 08/29/24 07:30 Pulse 81 08/29/24 07:30 Resp 14 08/29/24 07:30 BP 137/94 H 08/29/24 07:30 Pulse Ox 100 08/29/24 07:30 O2 Del Method Room Air 08/29/24 07:30 Allergies Allergy/AdvReac Type Severity Reaction Status Date / Time No Known Allergies Allergy Verified 08/29/24 08:01 Home Medications Medication Instructions Recorded Confirmed Type doxycycline hyclate 100 mg tablet 100 mg PO Q12H #20 tabs 08/09/24 08/27/24 Rx Laboratory Tests 08/29/24 07:30 POC Urine HCG, Qual Negative (Negative) Patient hx anesthesia problems: none Family hx anesthesia problems: none Results Review: All pre-operative results and documents have been reviewed as part of the pre- operative evaluation. [facility] Past Medical History Medical History Edema of breast Swelling of breast Right Breast pain, right Surgical wound, non healing Frequent loose stools Irregular periods Elevated liver enzymes Anemia TATO on CPAP Chest pain BMI 34.0-34.9,adult Stomach ulcer History of blood transfusion TATO (obstructive sleep apnea) Hernia Shortness of Breath Fatigue Increased frequency of urination Elevated LDL cholesterol level Elevated glucose Chest discomfort BMI 31.0-31.9,adult Hypersomnia Snoring BMI 32.0-32.9,adult Screening for diabetes mellitus Depression Anxiety Eczema Obesity Crohn's disease Surgical History Surgical History Hx of breast implant H/O abdominoplasty H/O breast augmentation (~12/2023) Hx of appendectomy 2015 History of colon surgery Family History Family History Father Hypertension Mother Hypertension COPD (chronic obstructive pulmonary disease) Heart disease Grandparent Cerebrovascular accident Social History Social History Smoking status: Former smoker Tobacco type: e-cigarettes/vaping Second hand tobacco smoke exposure: No Smoking end date: 01/17/24 Additional smoking assessment comments: VAPED X6 MONTH, QUIT 09/17/23 Alcohol intake: current Drinks per week: 1 Alcohol use details: socially- very rare Substance use: former Substance use type: marijuana Other substance usage details: Daily Last use: 2021 Do You Feel Safe in your Home?: Yes Lack of Transportation: No Lack of Food: Never True Current Housing: I Have Housing Concerned About Future Housing: No Difficulty Paying Gas/Electric Bills: No Difficulty Paying for Meds: No Currently Unemployed: No Education: High School Diploma/GED Difficulty w/ Childcare or Family Care: No Living arrangements: with family Additional living arrangements comments: HUSB AND 3 CHILDREN Occupation/Education: occupation 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 Gender identity (if verbalized by the patient): Female Sexual Orientation (if Verbalized by the Patient): Straight or Heterosexual Spiritual care concerns: No Anes - Eval Final PreProcedure Day of Procedure 08/29/24 08:04 Patient weight: obese Heart: regular rate and rhythm Lungs: clear to auscultation Airway: Mallampati scale class II Neurological: alert and oriented Last oral intake: >/= 8 hours ASA classification: III Emergent: no Anesthetic plan: proceed Anesthesia type and monitoring: general LMA and standard monitoring Results Review: All pre-operative results and documents have been reviewed as part of the pre- operative evaluation. Informed Consent: The patient's anesthetic plan and its attendant risks and benefits were discussed with the patient/family/POA. Questions were solicited and answers provided to the satisfaction of the patient/family/POA. "
--- OUTSIDE RECORDS SUMMARY | 2024-08-29 00:20 | XMS_ITS | Clinical Summary ---
Author Organization [facility] Address [address] [facility] [address] [place] [address] Phone Care Team Providers Care Geotechnical Field Technician Name Role Phone Unavailable Primary Care Provider Unavailabl e Allergies No known active allergies Medications acetaminophen (TYLENOL) 325 mg tablet Take 650 mg by mouth every 6 hours as needed. Active VITAMIN A ORAL Take 2,400 mcg by mouth daily. Active THIAMINE HCL, VITAMIN B1, ORAL Take by mouth daily. Active ASCORBIC ACID, VITAMIN C, ORAL Take 1,000 mg by mouth daily. Active cholecalciferol , Vitamin D3, 125 mcg (5,000 unit) Capsule Take 5,000 Units by mouth daily. Active vitamin E, dl,tocopheryl acet, (VITAMIN E, DL, ACETATE, ORAL) Take 670 mg by mouth daily. Active OMEGA-3 FATTY ACIDS-FISH OIL ORAL Take 500 mg by mouth daily. Active zinc SULFATE 50 mg zinc (220 mg) capsule Take 220 mg by mouth daily. Active mupirocin (BACTROBAN) 2 % Ointment Apply to affected area daily. 30 Gram 3 5 Active doxycycline hyclate (VIBRAMYCIN) 100 mg capsule Take 1 Capsule (100 mg) by mouth 2 times daily for 14 days. 28 Capsule 5 09/04/19 25 Active doxycycline hyclate (VIBRAMYCIN) 100 mg capsule Take 100 mg by mouth 2 times daily. 08/21/19 25 Discontinue d(Alternate therapy prescribed) Active Problems Problem Noted Date Diagnosed Date Ulcer, skin, chronic, with fat layer exposed 04/2024 Overview (08/16/2024): Right Breast History of MRSA infection 08/16/2024 TATO (obstructive sleep apnea) 04/02/2022 Crohn's disease of colon with complication 11/26 Overview (08/16/2024): Has a GI specialist. Last flare was 07/2019. Was not on medications at the start of the . 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 Encounters Date Type Department Care Team Description 08/21/2024 External Device Data [facility] ABSTRACTION Provider, Abstract 08/21/2024 External Device Data [facility] ABSTRACTION Provider, Abstract 08/21/2024 External Device Data [facility] ABSTRACTION Provider, Abstract 08/20/2024 Results [facility] [address] [place] [id number] Mary Lombardo FNP ANAEROBIC/AEROBIC CULTURE W GRAM STAIN 08/16/2024 8:30 AM CDT - 08/16/2024 11:59 PM CDT Hospital Encounter [facility] [address] [place] [id number] Mary Lombardo FNP Discharge Disposition: Home or Self Care from Last 3 Months Social History Tobacco Use Types Packs/Day Years Used Date Smoking Tobacco: Never Smokeless Tobacco: Never Tobacco Cessation:Counseling Given: Not Answered Feeling Safe Answer Date Recorded Are you in a relationship wi th someone who hurts you emotionally and/or physically? No 08/16/2024 Comments Unknown Sex and Gender Information Value Date Recorded Sex Assigned at Not on file Legal Sex Female 10:49 AM CDT Gender Identity Not on file Sexual Orientation Not on file Last Filed Vital Signs Vital Sign Reading Time Taken Comments Blood Pressure 132/92 08/16/2024 9:05 AM CDT Pulse 87 08/16/2024 9:05 AM CDT Temperature 36.8 C (98.3 F) 08/16/2024 9:05 AM CDT Respiratory Rate 18 08/16/2024 9:05 AM CDT Oxygen Saturation - - Inhaled Oxygen Concentration - - Weight 93.9 kg (207 lb) 08/16/2024 9:05 AM CDT Height 167.6 cm (5' 6 ) 08/16/2024 9:05 AM CDT Body Mass Index 33.41 08/16/2024 9:05 AM CDT Plan of Treatment Health Maintenance Due Date Last Done Comments DTAP/TDAP/TD VACCINES (2 - Tdap) 12/26/2006 12/26/19 07 HEPATITIS B VACCINES (1 of 3 - 19+ 3-dose series) 08/12/2010 HPV/Cotest (21-29) 08/12/2012 HPV/Cotest (30-65) 08/12/2021 INFLUENZA VACCINE (#1) 2023 Preventative Visit- Commercial 04/18/2024 06/09/2023 CERVICAL CANCER SCREENING 06/09/2026 PAP SMEAR 06/09/2026 06/09/2023 HPV VACCINES Aged Out No longer eligi ble based on patient's age to complete this topic Procedures Procedure Name Priority Date/Time Associated Diagnosis Comments SEDIMENTATION RATE Routine 08/24/2024 7: 45 AM CDT Chronic ulcer of skin, with fat layer exposed (CMS/HCC) C-REACTIVE PROTEIN Routine 08/24/2024 7: 45 AM CDT Chronic ulcer of skin, with fat layer exposed (CMS/HCC) COMPREHENSIVE METABOLIC PANEL Routine 08/24/2024 7:45 AM CDT Chronic ulcer of skin, with fat layer exposed (CMS/HCC) CBC WITH DIFFERENTIAL Routine 08/24/2024 7:45 AM CDT Chronic ulcer of skin, with fat layer exposed (CMS/HCC) ANAEROBIC/AEROBIC CULTURE W GRAM STAIN Routine 08/16/2024 9:38 AM CDT Chronic ulcer of skin, with fat layer exposed (CMS/HCC) from Last 3 Months Results * (ABNORMAL) CBC WITH DIFFERENTIAL (08/24/2024 7:45 AM CDT) WBC 5.7 3.8 - 10.8 Thousand/ uL [facility] RBC 5.05 3.80 - 5.10 Million/u L [facility] HEMOGLOBIN 15.0 11.7 - 15.5 g/dL [facility] HEMATOCRIT 45.8(H) 35.0 - 45.0 % [facility] MCV 90.7 80.0 - 100.0 fL [facility] MCH 29.7 27.0 - 33.0 pg [facility] MCHC 32.8 32.0 - 36.0 g/dL [facility] Comment: For adults, a slight decrease in the calculated MCHC value (in the range of 30 to 32 g/dL) is most likely not clinically significant; however, it should be interpreted with caution in correlation with other red cell parameters and the patient's clinical condition. RDW 12.9 11.0 - 15.0 % [facility] PLATELETS 240 140 - 400 Thousand/ uL [facility] MPV 10.3 7.5 - 12.5 fL [facility] NEUTROPHIL ABSOLUTE 3,785 1,500 - 7,800 cells/uL [facility] LYMPHOCYTE ABSOLUTE 1,362 850 - 3,900 cells/uL [facility] MONOCYTE ABSOLUTE 439 200 - 950 cells/uL [facility] EOSINOPHIL ABSOLUTE 91 15 - 500 cells/uL [facility] BASOPHILS ABSOLUTE 23 0 - 200 cells/uL [facility] NEUTROPHIL 66.4 % [facility] LYMPHOCYTES 23.9 % [facility] MONOCYTE 7.7 % [facility] EOSINOPHILS 1.6 % [facility] BASOPHILS 0.4 % [facility] Comment: FASTING:YES FASTING: YES Test Performed at: [facility] [address] [place] [address] Pancho Barnett Blood 08/24/2024 7:45 AM CDT 08/24/2024 7:46 AM CDT us Mary Lombardo HOG RIBBER HEMATOLOGY ORDERABLES Final Result [facility] [phone] [place] [address] [address] [place] [address] * SEDIMENTATION RATE (08/24/2024 7:45 AM CDT) Pathologist [facility] ESR (SEDIMENTATION RATE) 8 < OR = 20 mm/h [facility] zane Jaramillo Comment: FASTING:YES FASTING: YES Test Performed at: [place] [address] [address] [place] [address] [facility] Blood 08/24/2024 7:45 AM CDT 08/24/2024 7:46 AM CDT us Mary WATKINS HEMATOLOGY ORDERABLES Final Result Performing Organization Address City/[facility]/ZIP Code Phone Number [facility] [phone] [place] [address] [address] [place] [address] * C-REACTIVE PROTEIN (08/24/2024 7:45 AM CDT) Pathologist [facility] CRP <5.0 <8.0 mg/L [facility] zane Jaramillo Comment: FASTING:YES FASTING: YES Test Performed at: [place] [address] [address] [place] [address] [facility] Blood 08/24/2024 7:45 AM CDT 08/24/2024 7:46 AM CDT us Mary WATKINS CHEMISTRY ORDERABLES Final R esult Performing Organization Address City/[facility]/ZIP Code Phone Number [facility] [phone] [place] [address] [address] [place] [address] * COMPREHENSIVE METABOLIC PANEL (08/24/2024 7:45 AM CDT) Pathologist [facility] GLUCOSE 80 65 - 99 mg/dL [facility] zane Jaramillo Comment: Fasting reference interval BUN 17 7 - 25 mg/dL [facility] zane Jaramillo CREATININE 0.82 0.50 - 0.97 mg/dL [facility] zane Jaramillo GFR 97 > OR = 60 mL/min/1. 73m2 [facility] zane Jaramillo BUN/CREAT RATIO SEE NOTE: 6 - 22 (calc) [facility] Jaramillo Comment: Not Reported: BUN and Creatinine are within reference range. SODIUM 137 135 - 146 mmol/L [facility] Jaram[facility] POTASSIUM 4.3 3.5 - 5.3 mmol/L [facility] CHLORIDE 102 98 - 110 mmol/L [facility] CO2 28 20 - 32 mmol/L [facility] CALCIUM 9.4 8.6 - 10.2 mg/dL [facility] TOTAL PROTEIN 7.2 6.1 - 8.1 g/dL [facility] Jaramillo ALBUMIN 4.4 3.6 - 5.1 g/dL [facility] Jaramillo GLOBULIN 2.8 1.9 - 3.7 g/dL (calc) [facility] Jaramillo ALBUMIN/GLOBULIN RATIO 1.6 1.0 - 2.5 (calc) [facility] Jaramillo BILIRUBIN TOTAL 0.4 0.2 - 1.2 mg/dL Elvis [facility] Jaramillo ALKALINE PHOSPHATASE 59 31 - 125 U/L [facility] AST 19 10 - 30 U/L Elvis Te[facility]ada[facility] Jaramillo ALT 24 6 - 29 U/L [facility] Comment: FASTING:YES FASTING: YES Test Performed at: [facility] [place] [address] [place] [address] Pancho Barnett Blood 08/24/2024 7:45 AM CDT 08/24/2024 7:46 AM CDT Mary WATKINS CHEMISTRY ORDERABLES Final R esult [facility] [phone] [facility] [place] [address] [place] [address] * (ABNORMAL) ANAEROBIC/AEROBIC CULTURE W GRAM STAIN (08/16/2024 9:38 AM CDT) ANAEROBIC CULTURE SEE NOTE [facility] Jaramillo Comment: CULTURE, ANAEROBIC BACTERIA W/GRAM STAIN Micro Number: [id number] Test Status: Final Specimen Source: Breast, right Specimen Quality: Adequate Gram Stain: Moderate White blood cells seen No organisms seen Result: No anaerobes isolated. AEROBIC CULTURE SEE NOTE(A) [facility] zane Jaramillo Comment: CULTURE, AEROBIC BACTERIA Micro Number: [id number] Test Status: Final Specimen Source: Breast, right Specimen Quality: Adequate Result: Scant growth of Methicillin resistant Staphylococcus aureus (MRSA) Negative for inducible clindamycin resistance. MRSA INT MODESTO CIPROFLOXACIN R >=8 CLINDAMYCIN S <=0.25 DOXYCYCLINE S ERYTHROMYCIN R >=8 GENTAMICIN S <=0.5 LEVOFLOXACIN R >=8 LINEZOLID S 2 MOXIFLOXACIN R 2 OXACILLIN R NR 1 TETRACYCLINE S <=1 TRIMETHOPRIM/SULFA S <=10 VANCOMYCIN S 1 S = Susceptible I = Intermediate R = Resistant NS = Not susceptible SDD = Susceptible Dose Dependent * = Not Tested NR = Not Reported NN = See Therapy Comments THERAPY COMMENTS Note 1: Oxacillin-resistant staphylococci are resistant to all currently available beta-lactam antimicrobial agents with the possible exception of ceftaroline. Susceptibility testing performed using Thurman Coyle Disk Diffusion and therefore MODESTO values are not provided. Test Performed at: [place] [address] [address] [place] [address] [facility] Lesion/Drainage Fluid RIGHT BREAST STRUCTURE / Unknown 08/16/2024 9:38 AM CDT 08/17/2024 3:15 AM CDT Mary WATKINS MICROBIOLOGY - GENERAL ORDER LESLIE Final Result [facility] [phone] [place] [address] [address] [place] [address] from Last 3 Months Additional Health Concerns Infection Onset Date Last Indicated MRSA Comment:08/16/2024 Right Breast 08/16/2024 08/16/2024 Insurance [facility] [place] [id number] [address]
[2024-08-29] MEDS: TRANEXAMIC ACID 1,000MG/ISO100 1,000 MG/100 ML BAG 200 MG IVPB (07:30)
[2024-08-29] MEDS: LACTATED RINGERS 1,000 ML 30 ML IV CONT ×2 (07:30→10:29)
[2024-08-29] MEDS: SCOPOLAMINE 1 MG PATCH 1 PATCH TRANSDERM (07:30)
[2024-08-29 08:01] LABS: BEDSIDEPREGUCG Negative (Negative)
--- NOTE | 2024-08-29 08:04 | WPDANESEPPF ---
Anes - Initial Pre Proc Eval Procedure: Operation Date: 08/29/24 09:00 Proposed Procedures p Right Breast Implant Debridement, Possible Implant Exchange - Ifeanyi Lamb MD Date/Time: 08/29/24 08:04 Surgeon: Ifeanyi Lamb MD Pre Op Diagnosis: hx of breast augmentation Patient Data Age: 34 Gender: F Height: 1.65 m Weight: 94.6 kg Last Vital Signs Temp 36.5 C 08/29/24 07:30 Pulse 81 08/29/24 07:30 Resp 14 08/29/24 07:30 BP 137/94 H 08/29/24 07:30 Pulse Ox 100 08/29/24 07:30 O2 Del Method Room Air 08/29/24 07:30 Allergies Allergy/AdvReac Type Severity Reaction Status Date / Time No Known Allergies Allergy Verified 08/29/24 08:01 Home Medications Medication Instructions Recorded Confirmed Type doxycycline hyclate 100 mg tablet 100 mg PO Q12H #20 tabs 08/09/24 08/27/24 Rx Laboratory Tests 08/29/24 07:30 POC Urine HCG, Qual Negative (Negative) Patient hx anesthesia problems: none Family hx anesthesia problems: none Results Review: All pre-operative results and documents have been reviewed as part of the pre-operative evaluation. [facility] Past Medical History Medical History Edema of breast Swelling of breast Right Breast pain, right Surgical wound, non healing Frequent loose stools Irregular periods Elevated liver enzymes Anemia TATO on CPAP Chest pain BMI 34.0-34.9,adult Stomach ulcer History of blood transfusion TATO (obstructive sleep apnea) Hernia Shortness of Breath Fatigue Increased frequency of urination Elevated LDL cholesterol level Elevated glucose Chest discomfort BMI 31.0-31.9,adult Hypersomnia Snoring BMI 32.0-32.9,adult Screening for diabetes mellitus Depression Anxiety Eczema Obesity Crohn's disease Surgical History Surgical History Hx of breast implant H/O abdominoplasty H/O breast augmentation (~12/2023) Hx of appendectomy 2015 History of colon surgery Family History Family History Father Hypertension Mother Hypertension COPD (chronic obstructive pulmonary disease) Heart disease Grandparent Cerebrovascular accident Social History Social History Smoking status: Former smoker Tobacco type: e-cigarettes/vaping Second hand tobacco smoke exposure: No Smoking end date: 01/17/24 Additional smoking assessment comments: VAPED X6 MONTH, QUIT 09/17/23 Alcohol intake: current Drinks per week: 1 Alcohol use details: socially- very rare Substance use: former Substance use type: marijuana Other substance usage details: Daily Last use: 2021 Do You Feel Safe in your Home?: Yes Lack of Transportation: No Lack of Food: Never True Current Housing: I Have Housing Concerned About Future Housing: No Difficulty Paying Gas/Electric Bills: No Difficulty Paying for Meds: No Currently Unemployed: No Education: High School Diploma/GED Difficulty w/ Childcare or Family Care: No Living arrangements: with family Additional living arrangements comments: HUSB AND 3 CHILDREN Occupation/Education: occupation 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 Gender identity (if verbalized by the patient): Female Sexual Orientation (if Verbalized by the Patient): Straight or Heterosexual Spiritual care concerns: No Anes - Eval Final PreProcedure Day of Procedure 08/29/24 08:04 Patient weight: obese Heart: regular rate and rhythm Lungs: clear to auscultation Airway: Mallampati scale class II Neurological: alert and oriented Last oral intake: >/= 8 hours ASA classification: III Emergent: no Anesthetic plan: proceed Anesthesia type and monitoring: general LMA and standard monitoring Results Review: All pre-operative results and documents have been reviewed as part of the pre-operative evaluation. Informed Consent: The patient's anesthetic plan and its attendant risks and benefits were discussed with the patient/family/POA. Questions were solicited and answers provided to the satisfaction of the patient/family/POA.
--- NOTE | 2024-08-29 08:47 | P.HPUP_ITS ---
History and Physical Update Update Date/Time: 08/29/24 08:47 History and Physical has been reviewed, including an updated exam of the patient. There are NO changes in the patient's condition. Risks, benefits, and alternatives have been discussed and questions answered. Patient agrees to proceed with procedure.
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
[2024-08-29] MEDS: ceFAZolin 2 GM/D5W 50 ML 2 GM/50 ML BAG IVPB (09:12)
[2024-08-29] MEDS: NACL 0.9% IRRIG POUR BOTTLE 900 ML, GENTAMICIN SULFATE INJ 160 MG, ceFAZolin 2 GM, POVI... IRRIGATION (09:54)
[2024-08-29] MEDS: BUPivacaine HCL 0.25% PF 30 ML VIAL INFILTRATE (09:55)
[2024-08-29] MEDS: LIDO 1%/EPINEPHRINE 1:100,000 20 ML VIAL 30 ML INFILTRATE (09:57)
[2024-08-29] MEDS: ONDANSETRON INJ 4 MG/2 ML VIAL IV PUSH (11:06)
[2024-08-29] MEDS: fentaNYL CITRATE INJ (*CRX) 100 MCG/2 ML VIAL 25 MCG IV PUSH ×4 (11:06→11:26)
== END 2024-08-29 12:32 | disposition home or self-care (01) ==
PROVIDERS: PCP Nurse Practitioner Family; Visit Provider Surgery Plastic and Reconstructive Surgery
PROC: (CPT 19371; principal; 2024-08-29 09:00)
DX: Z41.1 Encounter for cosmetic surgery (principal); D64.9 Anemia, unspecified; E78.00 Pure hypercholesterolemia, unspecified; G47.10 Hypersomnia, unspecified; F32.A Depression, unspecified; F41.9 Anxiety disorder, unspecified; G47.33 Obstructive sleep apnea (adult) (pediatric); K50.90 Crohn's disease, unspecified, without complications; R35.0 Frequency of micturition; F12.90 Cannabis use, unspecified, uncomplicated; E66.9 Obesity, unspecified; Z68.34 Body mass index [BMI] 34.0-34.9, adult; Z98.890 Other specified postprocedural states; Z90.49 Acquired absence of other specified parts of digestive tract; Z99.89 Dependence on other enabling machines and devices; Z87.891 Personal history of nicotine dependence; Z87.11 Personal history of peptic ulcer disease; Z82.49 Family history of ischemic heart disease and other diseases of the circulatory system
CPT/HCPCS: 19371; 19325; A9270; J0690; J1100; J1580; J2003; J2004; J2250; J2405; J2704; J3010; J7120

== ENCOUNTER 2024-09-12 19:36 | Emergency (ER) | payer OTHER, SELFPAY ==
--- OUTSIDE RECORDS SUMMARY | 2024-09-12 19:40 | XMS_ITS | Clinical Summary ---
Author Organization [facility] Address [address] [facility] [address] [place] [place] [address] Phone Care Team Providers Care Senior Climate Advisor Name Role Phone Unavailable Primary Care Provider [...] daily. 08/21/19 25 Discontinue d(Alternate therapy prescribed) doxycycline hyclate (VIBRAMYCIN) 100 mg capsule Take 1 Capsule (100 mg) by mouth 2 times daily for 14 days. 28 Capsule 5 09/04/19 25 Active Problems Problem Noted Date Diagnosed Date [...] Encounters Date Type Department Care Team Description 09/11/2024 External Device Data [facility] ABSTRACTION Provider, Abstract 09/06/2024 External Device Data [facility] ABSTRACTION Provider, Abstract 08/21/2024 External Device Data [facility] ABSTRACTION Provider, Abstract 08/21/2024 External Device Data [facility] ABSTRACTION Provider, Abstract 08/21/2024 External Device Data [facility] ABSTRACTION Provider, Abstract 08/20/2024 Results Follow-Up [facility] [address] [place] [address] Mary Lombardo FNP ANAEROBIC/AEROBIC CULTURE W GRAM STAIN 08/16/2024 8:30 AM CDT - 08/16/2024 11:59 PM CDT Hospital Encounter [facility] [address] [place] [address] Mary Lombardo FNP Discharge Disposition: Home or [...] 9:05 AM CDT Height 167.6 cm (5' 6) 08/16/2024 9:05 AM CDT Body Mass Index 33.41 08/16/2024 9:05 AM CDT Plan of Treatment Health Maintenance Due Date Last Done Comments DTAP/TDAP/TD VACCINES (2 - Tdap) 12/26/2006 12/26/19 07 HEPATITIS B VACCINES (1 of 3 - 19+ 3-dose series) 08/12/2010 HPV/Cotest (21-29) 08/12/2012 HPV/Cotest (30-65) 08/12/2021 INFLUENZA VACCINE (#1) 2023 CERVICAL CANCER SCREENING 06/09/2026 PAP SMEAR 06/09/2026 [...] 3.8 - 10.8 Thousand/ uL [facility] RBC 5.05 3.80 - 5.10 Million/u L [...] 7.5 - 12.5 fL [facility] NEUTROPHIL ABSOLUTE 3,785 1,500 - 7,800 cells/uL [...] Comment: FASTING:YES FASTING: YES Test Performed at: [facility] [address] [place] [address] Pancho Barnett Blood 08/24/2024 7:45 AM CDT 08/24/2024 7:46 AM CDT Mary BENZP HEMATOLOGY ORDERABLES Final Result Performing Organization Address City/State/[facility] Phone Number [facility] [phone] [place] [address] [place] [address] * SEDIMENTATION RATE (08/24/2024 7:45 AM CDT) Pathologist [facility] ESR (SEDIMENTATION RATE) 8 < OR = 20 mm/h [facility] Comment: FASTING:YES FASTING: YES Test Performed at: [place] [address] [place] [address] [facility] Blood 08/24/2024 7:45 AM CDT 08/24/2024 7:46 AM CDT us Mary WATKINS HEMATOLOGY ORDERABLES Final Result Performing Organization Address [facility] Phone Number [facility] [phone] [place] [address] [place] [address] * C-REACTIVE PROTEIN (08/24/2024 7:45 AM CDT) Pathologist [facility] CRP <5.0 <8.0 mg/L [facility] Comment: FASTING:YES FASTING: YES Test Performed at: [place] [address] [place] [address] [facility] Blood 08/24/2024 7:45 AM CDT 08/24/2024 7:46 AM CDT us Mary WATKINS CHEMISTRY ORDERABLES Final R esult Performing Organization Address [facility] Code Phone Number [facility] [phone] [place] [address] [place] [address] * COMPREHENSIVE METABOLIC PANEL (08/24/2024 7:45 AM CDT) Pathologist [facility] GLUCOSE 80 65 - 99 mg/dL [email or web address] Comment: Fasting reference interval BUN 17 7 - 25 mg/dL [facility] CREATININE 0.82 0.50 - 0.97 mg/dL [facility] GFR 97 > OR = 60 mL/min/1. 73m2 [facility] BUN/CREAT RATIO SEE NOTE: 6 - 22 (calc) [facility] Comment: Not Reported: BUN and Creatinine are within reference range. SODIUM 137 135 - 146 mmol/L [facility] POTASSIUM 4.3 3.5 - 5.3 mmol/L Elvis [facility] CHLORIDE 102 98 - 110 mmol/L [facility] CO2 28 20 - 32 mmol/L [facility] CALCIUM 9.4 8.6 - 10.2 mg/dL [facility] TOTAL PROTEIN 7.2 6.1 - 8.1 g/dL Elvis [facility] ALBUMIN 4.4 3.6 - 5.1 g/dL [facility] GLOBULIN 2.8 1.9 - 3.7 g/dL (calc) [facility] ALBUMIN/GLOBULIN RATIO 1.6 1.0 - 2.5 (calc) [facility] BILIRUBIN TOTAL 0.4 0.2 - 1.2 mg/dL [facility] ALKALINE PHOSPHATASE 59 31 - 125 U/L [facility] AST 19 10 - 30 U/L [facility] ALT 24 6 - 29 U/L [facility] Comment: FASTING:YES FASTING: YES Test Performed at: [place] [address] [address] [place] [address] Pancho Barnett Blood 08/24/2024 7:45 AM CDT 08/24/2024 7:46 AM CDT Mary BENZP CHEMISTRY ORDERABLES Final R esult [facility] [phone] [place] [address] [place] [address] * (ABNORMAL) ANAEROBIC/AEROBIC CULTURE W GRAM STAIN (08/16/2024 9:38 AM CDT) ANAEROBIC CULTURE SEE NOTE [facility] Comment: CULTURE, ANAEROBIC BACTERIA W/GRAM STAIN Micro Number: [id number] Test Status: Final Specimen Source: Breast, right Specimen Quality: Adequate Gram Stain: Moderate White blood cells seen No organisms seen Result: No anaerobes isolated. AEROBIC CULTURE SEE NOTE(A) [facility] Comment: CULTURE, AEROBIC BACTERIA Micro Number: [id number] Test Status: Final Specimen Source: Breast, right [...] values are not provided. Test Performed at: [address] [place] [address] [place] [address] [facility] Lesion/Drainage Fluid RIGHT BREAST STRUCTURE / Unknown 08/16/2024 9:38 AM CDT 08/17/2024 3:15 AM CDT Mary Lombardo SNOWBOARDER MICROBIOLOGY - GENERAL ORDER LESLIE Final Result [facility] [phone] [facility] [place] [address] [address] [place] [address] from Last 3 Months Additional Health Concerns Infection Onset Date Last Indicated MRSA Comment:08/16/2024 Right Breast 08/16/2024 08/16/2024 Insurance [facility] [id number] [facility]
--- OUTSIDE RECORDS SUMMARY | 2024-09-12 19:40 | XMS_ITS | Data Portability ---
Author Organization [facility] Address [address] [place] [address] Care Team Providers Care In Home Nanny Name Role Phone SERGIO SCHMID Primary Care Provider [phone] Assessment Encounter Date Assessment Date Assessment LastModified by Organization Details LastModified Time 06/04/2021 06/04/2021 Annual gynecological exam performed. Patient will come back in a year unless there are new symptoms. [email or web address] Not available 05/22/2021 16:29:38 06/09/2023 06/09/2023 Annual gynecological exam performed. Patient will come back in a year unless there are new symptoms. Not available 06/09/2023 09:16:50 Plan of Treatment Reminders Order Date Submit Date Provider Last Modified By Organization Details Last Modified Time Details Appointments None recorded. Lab test, urine [address] [facility], [address], [place], [address], 4 09:45:37 TSH, serum or plasma 2023 [facility] (Lab), [address], [place], [address], 4 01:19:47 prolactin, serum 2023 024 [facility] (Lab), [address], [place], [address], 4 01:19:46 FSH (follicle-s timulating hormone), serum 2023 024 [facility] (Lab), [address], [place], [address], 4 01:19:47 estradiol, serum 2023 024 [facility] (Lab), [address], [place], [address], 4 01:19:45 testosteron e free/testos terone total, ratio, serum 2023 024 [facility] (Lab), [address], [place], [address], 4 01:19:48 lh (luteinizin g hormone), serum 2023 024 [facility] (Lab), [address], [place], [address], 4 01:19:46 HbA1c (hemoglobin A1c), blood 2023 024 [facility] (Lab), [address] [place], [address], 4 01:19:47 Referral None recorded. Procedures None recorded. Surgeries None recorded. Imaging None recorded. Medication Orders Slynd 4 mg (28) tablet 2023 024 [id number], [address], [place], [address], 4 11:00:57 Diflucan 100 mg tablet 2021 022 [id number], [address], [place], [id number], 3 09:41:09 Patient TargetsNo targets recorded. Patient [...] or kits canno t be used inter [facility] . Femal e Estra diol Range s: Folli cular phase 12.4- 233 pg/mL Ovula tion phase 41.0- 398 pg/mL Lutea l phase 22.3- 341 pg/mL Postm enopa usal< 5-138 pg/mL Healt hy Pregn ant Women 1st Trime ster1 54-32 43 pg/mL 2nd Trime ster1 561-2 1280 pg/mL 3rd Trime ster8 525-> 94653 pg/mL Not Available [facility] (Lab) [address], [place], [address], 06/14/2023 01:19:45 06/09/19 24 06/09/2023 PROLA CTIN prolactin, total 15.30 NG/mL 4.79-2 3.30 This assay was perfo rmed using [employer] ratio n reage nts and test kits. Value s obtai kaelyn with other assay metho ds or kits canno t be used inter [facility] . Not Available [facility] (Lab) [address], [place], [address], 06/14/2023 01:19:46 06/09/19 24 06/09/2023 LH (LUTE NIZIN G HORMO NE) LH 16.2 mIU/m L This assay was perfo rmed using [employer] ratio n reage nts and test kits. Value s obtai kaelyn with other assay metho ds or kits canno t be used [facility] . Femal es Mid-F ollic ular: 2.4-1 2.6 mIU/m L Mid-C ycle: 14.0- 95.6 mIU/m L Mid-L uteal : 1.0-1 1.4 mIU/m L Postm enopa use: 7.7-5 8.5 mIU/m L Not Available [facility] (Lab) [address], [place], [address], 06/14/2023 01:19:46 06/09/19 24 06/09/2023 FSH FSH [...] use: 25.8- 134.8 mIU/m L Not Available [facility] (Lab) [address], [place], [address], 06/14/2023 01:19:47 06/09/19 24 06/09/2023 TSH, REFLE X FREE T4 TSH 2.70 uIU/m L 0.30-5 .33 Not Available [facility] (Lab) [address], [place], [address], 06/14/2023 01:19:47 06/09/19 24 06/09/2023 HEMOG LOBIN [...] >8.0% Actio n sugge sted Not Available [facility] (Lab) [address], [place], [address], 06/14/2023 01:19:47 06/09/19 24 06/09/2023 TESTO STERO NE, FREE( DIALY SIS) AND TOTAL (LC/M S/MS) testosterone , total 192 NG/dL 2-45 high For addit ional [facility] refer to http: //[facility] yocasta moses.que stdia gnost ics.c om/fa q/ Total Testo stero neLCM SMSFA Q165 (This link is being provi ded for infor [facility]/ educa shlomo l purpo ses only. ) This test was devel oped and its stevenson tical perfo rmanc e gina cteri stics have been deter mined by [employer] [place], [place]. It has not been clear ed or appro ty by the U.S. Food and Drug Admin istra tion. This assay has been valid ated pursu ant to the CLIA regul ation s and is used for clini maricel purpo ses. Not Available [facility] (Lab) [address], [place], [address], 06/14/2023 01:19:48 06/09/19 24 06/09/2023 TESTO STERO NE, FREE( DIALY SIS) AND TOTAL (LC/M S/MS) testosterone , free 23.0 pg/mL 0.1-6. 4 high This test was devel oped and its stevenson tical perfo rmanc e gina cteri stics have been deter mined by [employer] [place]. It has not been clear ed or appro ty by the U.S. Food and Drug Admin istra tion. This assay has been valid ated pursu ant to the CLIA regul ation s and is used for clini maricel purpo ses. Perfo rming Organ izati on [facility] n: Site ID: AMD Name: [employer] ostjohanne s [facility] Addre ss[facility] [id number] [place], [place] Direc tor: Robbin Bosch MD PhD Not Available [facility] (Lab) [address], [place], [address], 06/14/2023 01:19:48 06/09/1906/09/2023 pregn naun test, urine HCG negati ve Not Available [facility] [address], [place], [address], 06/09/2023 09:42:24 Result Notes None recorded. Problems Name Problem SNOMED Code Status Onset Date Resolution Date Notes Provider Name and Address Organization Details Recorded Time Crohn's disease 86716737 Completed 201909/08/2021 Bridget Cruz [facility] 17:34:30 Syphilis test finding [id number] Completed 201405/14/2020 Encntr screen for infectio ns w sexl mode of transmis s;Practi ce ID: 0001 Patricia Thomas [facility] 18:43:37 Secondar y amenorrh ea [id number] Completed 201405/14/2020 Secondar y amenorrh ea;Pract ice ID: 0001 Patricia Thomas [facility], [facility] 18:43:22 Pregnanc y detectio n examinat ion Completed 201405/14/2020 Encounte r for pregnanc y test, result positive ;Practic e ID: 0001 Patricia Thomas [facility] 18:43:00 Generali zed abdomina l tenderne ss [id number] Completed 201405/14/2020 Generali zed abdomina l tenderne ss;Pract ice ID: 0001 Patricia Thomas [facility] 18:42:06 Abdomina l pain [id number] Completed 201405/14/2020 Unspecif ied abdomina l pain;Pra ctice ID: 0001 Patricia waller, [facility] 18:41:06 Gestatio n period, 9 weeks [id number] Completed 201405/14/2020 9 weeks gestatio n of pregnanc y;Practi ce ID: 0001 Patricia Martha waller, [facility] 18:42:42 Normal pregnanc y in multigra camille [id number] 67770 Completed 201505/14/2020 Encounte r for suprvsn of normal pregnanc y, first trimeste r;Practi ce ID: 0001 Patricia waller, [facility] 18:42:55 Pregnanc y, childbir th and puerperi um finding Completed 201505/14/2020 Oth pregnanc y related conditio ns, third trimeste r;Practi ce ID: 0001 Patricia waller, [facility] 18:41:24 Gestatio n period, 24 weeks [id number] Completed 201505/14/2020 24 weeks gestatio n of pregnanc y;Practi ce ID: 0001 Patricia waller, [facility] 18:42:13 False labor before 37 complete d weeks of gestatio n [id number] Completed 201505/14/2020 False labor before 37 complete d weeks of gest, second tri;Prac navi ID: 0001 Patricia waller, [facility] 18:41:47 Gestatio n period, 25 weeks [id number] Completed 201505/14/2020 25 weeks gestatio n of pregnanc y;Practi ce ID: 0001 Patricia waller, [facility] 18:42:15 Clinical finding Completed 201512/23/2020 Gastro-e sophagea l reflux disease without esophagi tis;Prac navi ID: 0001 Марина Morgan MD [address], [place], [address], [facility] 11:42:18 prematur e rupture of membrane s [id number] Completed 201505/14/2020 Pretrm chela ROM, unsp time betw rupt and onst labr, 3rd tri;Prac navi ID: 0001 Patricia waller, [facility] 18:43:13 Gestatio n period, 29 weeks [id number] Completed 201505/14/2020 29 weeks gestatio n of pregnanc y;Practi ce ID: 0001 Patricia waller, [facility] 18:42:24 Generali zed abdomina l pain [id number] Completed 201505/14/2020 Generali zed abdomina l pain;Pra ctice ID: 0001 Patricia Thomas [facility], [facility] 18:42:04 Clinical finding Completed 201505/14/2020 state, incident al;Pract ice ID: 0001 Patricia waller, [facility] 18:41:26 Complica tion of pregnanc y, childbir th and/or puerperi [id number] Completed 201505/14/2020 Oth diseases and conditio ns compl preg/chl dbrth;Pr actice ID: 0001 Patricia waller, [facility] 18:43:44 Gestatio n period, 30 weeks [id number] Completed 201505/14/2020 30 weeks gestatio n of pregnanc y;Practi ce ID: 0001 Patricia waller, [facility] 18:42:27 Gestatio n period, 32 weeks [id number] Completed 201505/14/2020 32 weeks gestatio n of pregnanc y;Practi ce ID: 0001 Patricia Martha waller, [facility] 18:42:29 Urinary tract infectio us disease [id number] Completed 201505/14/2020 Urinary tract infectio n, site not specifie d;Practi ce ID: 0001 Patricia Martha waller, [facility] 18:43:46 Pregnanc y, childbir th and puerperi um finding Completed 201505/14/2020 Encntr for suprvsn of normal first preg, third trimeste r;Practi ce ID: 0001 Patricia waller, [facility] 18:43:[address] Concept Completed 201505/14/2020 Decrease d movement s, third trimeste r, unsp;Pra ctice ID: 0001 Patricia Thomas [facility], [facility] 18:43:27 Gestatio n period, 35 weeks [id number] Completed 201505/14/2020 35 weeks gestatio n of pregnanc y;Practi ce ID: 0001 Patricia Thomas [facility], [facility] 18:42:34 Gestatio n period, 36 weeks [id number] Completed 201505/14/2020 36 weeks gestatio n of pregnanc y;Practi ce ID: 0001 Patricia Thoams [facility], [facility] 18:42:36 Term pregnanc y delivere d [id number] Completed 201505/14/2020 Encounte r for full-ter m uncompli cated delivery ;Practic e ID: 0001 Patricia waller, [facility] 18:43:39 Single live from singleto n pregnanc y [id number] Completed 201505/14/2020 Single live ;Pr actice ID: 0001 Patricia Thomas sridhar [facility] 18:43:24 Lochia finding Completed 201505/14/2020 Encounte r for routine postpart um follow-u p;Practi ce ID: 0001 Patriciahugo waller [facility] 18:42:[address] Concept Completed 201505/14/2020 Encntr for general adult medical exam w/o abnormal findings ;Practic e ID: 0001 Patriciahugo waller [facility] 18:43:30 Acute vaginiti s [id number] Completed 201605/14/2020 Acute vaginiti s;Practi ce ID: 0001 Patricia Thomas sridhar [facility] 18:41:08 Educatio n Completed 201605/14/2020 Encounte r for oth general cnsl and advice on contrace ption;Pr actice ID: 0001 Patriciahugo waller [facility] 18:41:36 Pregnanc y test negative [id number] Completed 201605/14/2020 Encounte r for pregnanc y test, result negative ;Practic e ID: 0001 Patriciahugo waller [facility] 18:43:02 Uterine size for dates discrepa ncy Completed 201605/14/2020 Uterine size-joanie e discrepa ncy, first trimeste r;Practi ce ID: 0001 Patricia Thomas [facility] 18:43:49 Finding of contents of cervix [id number] Completed 201605/14/2020 Weeks of gestatio n of pregnanc y not specifie d;Practi ce ID: 0001 Patricia Martha waller, [facility] 18:41:56 Amenorrh ea [id number] Completed 201605/14/2020 Amenorrh ea, unspecif ied;Prac navi ID: 0001 Patriciahugo Thomas sridhar, [facility] 18:41:12 Threaten ed miscarri age [id number] Completed 201605/14/2020 Threaten ed ;Practic e ID: 0001 Patricia Martha waller, [facility] 18:43:41 Antenata l screenin g Completed 201605/14/2020 Encounte r for antenata l screenin g for nuchal transluc ency;Pra ctice ID: 0001 Patricia Martha waller, [facility] 18:41:15 Gestatio n period, 12 weeks [id number] Completed 201605/14/2020 12 weeks gestatio n of pregnanc y;Practi ce ID: 0001 Patricia Thomas null, [facility] 18:42:08 Evaluati on finding Completed 201605/14/2020 Hematuri a, unspecif ied;Prac navi ID: 0001 Patricia Thomas null, [facility] 18:41:42 Gestatio n period, 18 weeks [id number] Completed 201605/14/2020 18 weeks gestatio n of pregnanc y;Practi ce ID: 0001 Patricia Martha waller, [facility] 18:42:11 Antenata l screenin g for malforma tion Completed 201605/14/2020 Encounte r for antenata l screenin g for malforma tions;Pr actice ID: 0001 Patricia waller, [facility] 18:41:18 Pregnanc y, childbir th and puerperi um finding Completed 201705/14/2020 Oth pregnanc y related conditio ns, second trimeste r;Practi ce ID: 0001 Patricia waller, [facility] 18:41:22 Gestatio n period, 27 weeks [id number] Completed 201705/14/2020 27 weeks gestatio n of pregnanc y;Practi ce ID: 0001 Patricia waller, [facility] 18:42:20 Prematur e labor [id number] Completed 201705/14/2020 labor without delivery , third trimeste r;Practi ce ID: 0001 Patricia waller, [facility] 18:43:10 Gestatio n period, 28 weeks [id number] Completed 201705/14/2020 28 weeks gestatio n of pregnanc y;Practi ce ID: 0001 Patricia waller, [facility] 18:42:22 Hemorrha gic complica tion of pregnanc y [id number] Completed 201705/14/2020 Other hemorrha ge in early pregnanc y;Practi ce ID: 0001 Patricia waller, [facility] 18:42:48 False labor at or after 37 complete d weeks of gestatio n [id number] Completed 201705/14/2020 False labor at or after 37 complete d weeks of gestatio n;Practi ce ID: 0001 Patricia waller, [facility] 18:41:45 Gestatio n period, 38 weeks [id number] Completed 201705/14/2020 38 weeks gestatio n of pregnanc y;Practi ce ID: 0001 Patricia waller, [facility] 18:42:38 Gestatio n period, 39 weeks [id number] Completed 201705/14/2020 39 weeks gestatio n of pregnanc y;Practi ce ID: 0001 Patricia waller, [facility] 18:42:[address] Concept Completed 201705/14/2020 Encntr for sieve repairer exam (general ) (routine ) w/o abn findings ;Practic e ID: 0001 Patricia waller, [facility] 18:43:32 Insertio n of intraute rine contrace ptive device Completed 201705/14/2020 Encounte r for insertio n of intraute rine contrace ptive device;P ractice ID: 0001 Patricia Thomas [facility], [facility] 18:42:50 Finding of pattern of menstrua l cycle [id number] Completed 201705/14/2020 Excessiv e and frequent menstrua tion with irregula r cycle;Pr actice ID: 0001 Patricia waller, [facility] 18:42:01 Contrace ptive sheath status [id number] Completed 201705/14/2020 Encounte r for routine checking of intraute rine contrace p dev;Prac navi ID: 0001 Patricia waller, [facility] 18:41:30 Removal of intraute rine device Completed 201905/14/2020 Encounte r for removal of intraute rine contrace ptive device;P ractice ID: 0001 Patricia waller, [facility] 18:43:16 Pregnanc y test positive [id number] Completed 201405/14/2020 Pregnanc y examinat ion or test, positive result;R ecorded Elsewher e: No [facility]at [facility] Practi ce ID: 0001 Seymour lable Time: 11:00:00 AM Patricia waller [facility] 1 18:43:05 Female genital organ symptoms [id number] Completed 201405/14/2020 Pelvic pain;Rec orded Elsewher e: No Locat ion: [facility] N Practi ce ID: 0001 Seymour lable Time: 09:30:00 AM Patricia Thomas [facility] 1 18:41:50 Dysfunct ional uterine bleeding Completed 201405/14/2020 Other disorder s of menstrua tion and other abnormal bleeding from female genital tract;Re corded Elsewher e: No [facility]: N Robertati ce ID: 0001 Seymour lable Time: 03:30:00 PM Patricia Thomas sridhar [facility] 1 18:41:33 Adult health examinat ion Completed 201405/14/2020 ROUTINE MEDICAL EXAM;Rec orded Elsewher e: No Locat ion: [facility]: N Robertati ce ID: 0001 Seymour lable Time: 01:00:00 PM Patricia waller [facility] 1 18:41:10 Pelvic and perineal pain [id number] Completed 201705/14/2020 Pelvic and perineal pain;Rec orded Elsewher e: No Locat ion: [facility] S ource: [facility] [employer] laney: N Practi ce ID: 0001 Seymour lable Time: 08:45:00 AM Patricia waller [facility] 1 18:42:58 Clinical finding Completed 201707/17/2020 Presence of (intraut erine) contrace ptive device;R ecorded Elsewher e: No Locat ion: [facility] S ource: [facility] laney: N Practi ce ID: 0001 Seymour lable Time: 02:30:00 PM Rebecca Jacob sridhar, [facility] 12:15:19 Female infertil ity [id number] Completed 201405/14/2020 Female infertil ity;Wilner rded Elsewher e: No Locat ion: [facility] S ource: [facility] laney: N Practi ce ID: 0001 Seymour lable Time: 01:30:00 PM Patricia Thomas [facility], [facility] 18:41:53 Gestatio n period, 33 weeks 71952355 Completed 201505/14/2020 33 weeks gestatio n of pregnanc y;Record ed Elsewher e: No Locat ion: [facility] S ource: [facility] laney: N Practi ce ID: 0001 Seymour lable Time: 11:00:00 AM Patricia waller, [facility] 18:42:31 Gestatio n period, 26 weeks [id number] Completed 201505/14/2020 26 weeks gestatio n of pregnanc y;Record ed Elsewher e: No Locat ion: [facility] S ource: [facility] laney: N Practi ce ID: 0001 Seymour lable Time: 02:00:00 PM Patricia waller [facility] 18:42:17 Speciali zed medical examinat ion Completed 201405/14/2020 Gynecolo gical Examinat ion;Wilner rded Elsewher e: No Locat ion: [facility] S ource: [facility] laney: N Practi ce ID: 0001 Seymour lable Time: 01:00:00 PM Patricia waller [facility] 18:43:35 Emotiona l state finding Completed 201705/14/2020 Anxiety depressi on;Recor ded Elsewher e: No Locat ion: [facility] S ource: [facility] laney: N Practi ce ID: 0001 Seymour lable Time: 09:45:00 AM Patricia Thomas [facility], [facility] 18:41:39 Atypical squamous cells of undeterm ined signific ance on cervical Papanico laou smear [id number] Completed 201409/08/2021 Bridget Cruz [facility], [facility] 2 17:34:30 Screenin g for malignan t neoplasm of cervix Completed 201405/14/2020 Pap Smear;Pr actice ID: 0001 Patricia Martha [facility], [facility] 18:43:20 Pregnanc y 43641753 Completed 202001/08/2021 Nicki hicks [facility], [facility] 12:04:31 Headache [id number] Completed Rxed fioricet Nicki hicks [facility] 12:04:24 Dyspnea 526496233 Completed NL holter Nicki hicks [facility], [facility] 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 12:04:24 Obesity 669265028 Completed 37 week antenata l testing weekly Nicki hicks [facility], [facility] 1 12:04:24 Ultrasou nd scan abnormal [id number] Completed cisterna magna borderli ne marya rich at [facility] 11/26- They recommen d brain MRI to evaluate posterio r fossa- Let peds know! Nickivlad Campbell kurt [facility], [facility] 1 12:04:24 Past pregnanc y history of postpart um hemorrha ge [id number] Completed Nicki Petersondorenecristela hicks [facility], [facility] 1 12:04:24 Anxiety 37782159 Completed sertrali ne Nicki Shannan hicks [facility], [facility] 12:04:24 Problem Notes None recorded. Procedures Surgical History Date Name Laterality Status Provider Name and Address Organization Details Recorded Time 06/09/19 24 Date of Last Pap Smear completed Elizabeth Childers [facility] 06/09/2023 09:27:05 09/17/19 22 extraction of wisdom tooth completed Patricia Thomas [facility] 07/29/2022 09:41:59 04/18/19 15 excision of colon completed VANESSA Hinds [address], [place], [address], [facility] 06/09/2023 09:36:29 04/18/19 15 appendectomy completed Patricia Thomas [facility] 05/14/2020 19:43:41 Imaging Results None recorded. [...] Elsewher e: No Locat ion: [facility] [facility] By: mayo case DateTime : 12/25/19 16 01:00:00 PM Not Available Not Available Not Available sertralin e 100 mg tablet 07/29 completed Not Available Not Available Not Available Diflucan 150 mg tablet take 1 tablet by oral route once 01/31 completed Prescrib ed Elsewher e: No [facility] By: tyler matiasunter DateTime : 11/04/19 17 01:36:35 PM Not [...] Elsewher e: No [facility] odify By: binta lópez DateTime : 02/05/20 17 11:42:21 AM Not Available Not Available Not Available Levora 0.15/30 (28) 0.15 mg-0.03 mg tablet take 1 tablet by oral route every day 10/04 completed Prescrib ed Elsewher e: No Locat ion: [facility] odify By: mayo case DateTime : 02/23/20 [...] Elsewher e: No [facility] By: leoncio Redman r DateTime : 02/03/20 18 08:15:00 AM Not Available Not Available Not Available Synthroid 25 mcg tablet take 1 tablet by oral route every day 03/31 completed Prescrib ed Elsewher e: No Locat ion: [facility] odify By: rd Redman r DateTime : 03/31/20 17 11:35:05 AM Not Available Not Available Not Available Flagyl 500 mg tablet Take 1 tablet twice a day by oral route for 7 days. 10/11 completed Not Available Not Available Not Available cephalexi n 500 mg capsule TAKE 1 CAPSULE BY MOUTH 2 TIMES A DAY 11/08 /2021 completed Not Available Not Available Not Available nitrofura ntoin macrocrys drake 100 mg capsule take 1 capsule by oral route every 12 hours for 7 days with food 05/16 completed Prescrib ed Elsewher e: No Locat ion: Sudheer alexx [facility] odify By: [email or web address] Encounte r DateTime : 05/10/19 18 08:45:00 AM Not Available Not Available Not Available Synthroid 88 mcg tablet take 1 tablet by oral route daily 09/16 completed Prescrib ed Elsewher e: No Locat ion: [facility] odify By: ambecca matiasunter DateTime : 04/28/19 18 02:09:28 PM Not Available Not Available Not Available Synthroid 75 mcg tablet take 1 tablet by oral route every day 02/17 completed Prescrib ed Elsewher e: No Locat ion: [facility] odify By: mayo Crockerte r DateTime : 06/10/19 16 01:13:40 PM Not Available Not Available Not Available Synthroid 50 mcg tablet take 1 tablet by oral route every day 04/28 completed Prescrib ed Elsewher e: No Locat ion: [facility] odify By: [email or web address] Redman r DateTime : 03/31/20 17 11:35:05 [...] Prescrib ed Elsewher e: No Locat ion: [facility] odify By: binta lópez DateTime : 04/25/19 10:15:00 AM Not Available Not Available Not Available epinephri ne 0.3 mg/0.3 mL injection , auto-inje ctor USE IM UTD 07/21 completed Not Available Not Available Not Available Vitamin D2 1,250 mcg (50,000 unit) capsule take 1 capsule by oral route every week 02/17 completed Prescrib ed Elsewher e: No Locat ion: [facility] odify By: mayo Redman r DateTime [...] Elsewher e: No Locat ion: [facility] odify By: mayo Redman r DateTime : 11/09/19 15 04:15:00 PM Not Available Not Available Not Available iron 18 mg tablet 02/17 completed Prescrib ed Elsewher e: Yes Loca tion: [facility] odify By: mayo Redman r DateTime : 08/20/19 15 01:00:00 PM Not Available Not Available Not Available azithromy arian 500 mg tablet take 2 tablet by oral route once 02/17 completed Prescrib ed Elsewher e: No Locat ion: [facility] odify By: mayo Redman r DateTime : [...] Prescrib ed Elsewher e: No Locat ion: [facility] odify By: mayo Redman r DateTime : 09/12/19 16 08:30:00 AM Not Available Not Available Not Available Prevacid 24Hr 15 mg capsule,d elayed release take 1 capsule by oral route every day before a meal 02/17 completed Prescrib ed Elsewher e: No Locat ion: [facility] odify By: mayo Redman r DateTime : 08/11/19 16 02:00:00 PM Not Available Not Available Not Available butalbita l-acetami nophen-ca ffeine 50 mg-300 mg-40 mg capsule Take 1 capsule every 4 hours by oral route. 01/07 completed Not Available Not Available Not Available [employer] A 28 mg iron-1 mg-200 mg capsule take 1 capsule by oral route every day 09/16 completed Prescrib ed Elsewher e: No Locat ion: [facility] odify By: [email or web address] Coffey ncounter DateTime : 02/15/20 17 02:35:03 PM [...] Updated DateTime 04/29/2021 160.02 cm 36.1 kg/m2 58311.84 g 132 mm[Hg] 84 mm[Hg] Rebecca Jacob [facility] 2 10:43:08 Date Recorded Body height Provider Name an d Address Organization Details Last Updated DateTime 06/04/2021 160.02 cm Marbin Mrac MD [address], [place], [address], [facility] 06/04/2021 17:41:06 Date Recorded Body height Body mass index (BMI) Body weight Systolic blood pressure Diastolic blood pressure Provider Name and Address Organization Details Last Updated DateTime 06/09/2023 160.02 cm 38.4 kg/m2 57716.54 g 117 mm[Hg] 78 mm[Hg] [facility] 4 09:25:33 Date Recorded Body height Body mass index (BMI) Body weight Systolic blood pressure Diastolic blood pressure Provider Name and Address Organization Details Last Updated DateTime 06/22/2023 160.02 cm 39 kg/m2 40188.32 g 133 mm[Hg] 76 mm[Hg] [facility] 4 10:06:55 Date Recorded Body height Body mass index (BMI) Body weight Systolic blood pressure Diastolic blood pressure Provider Name and Address Organization Details Last Updated DateTime 07/29/2022 160.02 cm 35.8 kg/m2 41487.66 g 117 mm[Hg] 82 mm[Hg] Patricia Thomas [facility] 3 09:41:02 Social History Question Answer Notes LastModified by Organizat ion Details LastModified Time Tobacco Smoking Status Never Smoker Agata Adry waller, [facility] 10/12/2019 16:43:32 If You Are , What Was Your Level Of Alcohol Consumption Prior To ? None [email or web address] Information not available 05/14/2020 Are You Blind Or Do You Have Difficulty Seeing? No [email or web address] Information n ot available 10/21/2020 What Is Your Level Of Caffeine Consumption? Occasional Information not available 05/14/2020 In The 14 Days Before Symptom Onset, Have You Had Close Contact With A Laboratory-confirm ed COVID-19 While That Case Was Ill? No [email or web address] Information n ot available 10/21/2020 In The 14 Days Before Symptom Onset, Have You Had Close Contact With A Person Who Is Under Investigation For COVID-19 While That Person Was Ill? No [email or web address] Information not available 10/21/2020 Have You Been To An Area Known To Be High Risk For COVID-19? No [email or web address] Information not available 10/21/2020 Are You Deaf Or Do You Have Serious Difficulty Hearing? No Information not available 10/21/2020 What Type Of Diet Are You Following? REGULAR Information n ot available 10/21/2020 Do You Use Your Seat Belt Or Car Seat Routinely? Yes Information not available 10/21/2020 Are You Sexually Active? Yes Information not available 06/09/2023 Do You Have Smoke And Carbon Monoxide Detectors In Your Home? Yes [email or web address] Information not available 10/21/2020 Do You Use Sunscreen Routinely? Yes [email or web address] Information not available 10/21/2020 Has Tobacco Cessation Counseling Been Provided? No [email or web address] Information not available 05/14/2020 Do You Have Difficulty Walking Or Climbing Stairs? No [email or web address] Information not available 07/29/2022 Sex: Unknown Functional Status Question Answer Note LastModified by Organizat ion Details LastModified Time Do you use any illicit or recreational drugs? No [email or web address] Information not available 05/14/2020 Do you or have you ever used any other forms of tobacco or nicotine? No [email or web address] Information not available 05/14/2020 What is your level of alcohol consumption? None [email or web address] Information not available 05/14/2020 Are you able to walk? YESWOREST [email or web address] Information not available 10/21/2020 Are you able to care for yourself? Yes [email or web address] Information n ot available 07/29/2022 Do you have difficulty dressing or bathing? No [email or web address] Information not available 07/29/2022 What is your exercise level? Moderate [email or web address] Information not available 10/21/2020 Mental Status Question Answer Note LastModified by Organization D etails LastModified Time Do you feel stressed (tense, restless, nervous, or anxious, or unable to sleep at night)? [id number] [email or web address] Information not available 10/21/2020 Family History Relationship Description Onset Age of [...] (Food, seasonal, environmental ) N Other N Blood Transfusion N Drug/Latex Allergies/Reactions N Breast Cancer N Dermatologic Disorders N Lung Disease N [...] Diagnosis ICD10 Code Diagnosis Note [id number] [facility]ie [facility] [address],[place] [address] 08/06/2019 10:35:26 08/07/2019 13:38:12 Vaginitis 08115828 N76.0 Discussed use of mild soap like dove or ivory, cotton underwear w/out dye, hypoallerg enic detergent, wipe from front to back, avoid tub baths, keep perineum clean and dry, d/c use of baby wipes. Encouraged daily intake of yogurt or womens health probiotic. Internal and external affirm collected along with STD culture per patient request. [id number] Melodie Jenkins [facility] [address],[place] [address] 10/02/2019 11:06:56 10/03/2019 09:16:56 test positive 399930481 Z32.01 [id number] Marbin Marc MD [facility] [address],[place] [address] 10/12/2019 16:08:09 10/15/2019 14:20:15 test positive 828337171 Z32.01 This patient is a 29-year-ol d female presents for ER follow-up. The patient was seen in the emergency department for Crohn's disease.Liat coffey had a Crohn's flareup.Liat coffey had novaginal bleeding or cramping. She had a positive test. An ultrasound was performed. There is no evidence of an intrauteri ne gestation. Her quantitati ve hCG was 124.We agreed to repeat ultrasound next week. She should be 6 weeks.She will follow-up after the ultrasound . [id number] Marbin Marc MD [facility] [address],[place] [address] 10/15/2019 13:24:40 10/15/2019 14:36:23 screening 539589423 Z36.9 This patient is a 29-year-ol d female who presents for follow-up onearly gestation. Herpregnan cy was of unknown viability. Ultrasound was performed today. Intrauteri ne gestationa l sac and yolk sac were observed.T his is fairly consistent with her suspectedg estational age.She has no complaints . No cramping or bleeding. She will follow-up in 2 weeks. [id number] Marbin Marc MD [facility] [address],[place] [address] 10/15/2019 13:25:12 10/15/2019 17:30:58 Uncertain viability of 925341911 O36.80X9 Z3A.01 [id number] Marbin Marc MD [facility] [address],[place] [address] 10/29/2019 15:24:56 10/29/2019 16:21:39 Uncertain viability of 024637795 O36.80X9 Z3A.01 [id number] Marbin Marc MD [facility] [address],[place] [address] 10/29/2019 15:25:16 10/29/2019 17:40:59 Crohn's disease 98150682 K50.90 This patient is a 29-year-ol d [...] initial OB. We talked about genetic screening. [id number] Melodie Jenkins CNM [facility] [address],[place] [address] 11/05/2019 17:25:37 11/05/2019 22:15:29 test positive 876331027 Z32.01 Risk factors addressed: Tobacco Cessation, Safe Sexual Practices, environmen drake, work hazards, travel restrictio ns, seat belt use.Eat a health well balanced diet, avoid alcohol, tobacco, and street drugs. Engage in daily low impact exercise, avoid temperatur e extremes, and cat, rodent, and bird feces.Alexander rich travel to areas where zika virus is [...] annual well woman examinatio n and address [facility] . [id number] [facility] [address],[facility] [place] [address] 05/14/2020 16:55:26 05/20/2020 12:21:48 Amenorrhea 55847843 N91.2 [id number] Marbin Marc MD [facility] [address],[facility] [place] [address] 05/14/2020 16:49:09 05/14/2020 17:28:37 screening 172009236 Z36.87 This patient is a 29-year-ol d female who presents for follow-up onearly gestation. Herpregnan cy was of unknown viability. Ultrasound was performed today. Intrauteri ne gestationa l sac and yolk sac were observed.T his is fairly consistent with her suspectedg estational age.She has no complaints . No cramping or bleeding. She will follow-up in 2 weeks. [id number] Marbin Marc MD [facility] [address],[place] [address] 06/10/2020 14:41:22 06/10/2020 16:08:51 Tachycardia 8735183 R00.0 This patient is a 29-year-ol d [...] this patient s visit, including available hand occupancy specialist upon arrive, temperatur e check and being asked a series of screening questions. All staff wore face coverings during this encounter, as well as provided additional cleaning and sanitizing of all surfaces, including countertop s, pens, chairs, door handles, light switches, etc, prior to and following the patient s visit. Orthostati c hypotension 07000353 I95.1 Headache 71466896 R51.9 [id number] Marbin Marc MD [facility] [address],[place] [address] 06/23/2020 09:35:05 06/23/2020 10:17:22 screening 213650258 Z36.82 This patient is a 29-year-ol d female who presents for follow-up onearly gestation. Herpregnan cy was of unknown viability. Ultrasound was performed today. Intrauteri ne gestationa l sac and yolk sac were observed.T his is fairly consistent with her suspectedg estational age.She has no complaints . No cramping or bleeding. She will follow-up in 2 weeks. [id number] Marbin Marc MD [facility] [address],[place] [address] 06/23/2020 09:35:51 06/23/2020 13:22:37 Routine care 332832470 Z34.91 Headache 58677616 R51.9 [id number] Melodie Jenkins CNM [facility] [address],[place] [address] 07/21/2020 11:02:28 07/21/2020 12:21:49 Routine care 602990198 Z34.92 [id number] Melodie Jenkins CNM [facility] [address],[place] [address] 08/12/2020 12:15:27 08/12/2020 12:42:58 Urinary tract infectious disease 58558141 N39.0 [id number] Melodie Jenkins CNM [facility] [address],[place] [address] 08/18/2020 13:55:21 08/18/2020 15:22:57 Routine care 892842769 Z34.92 [id number] Marbin Marc MD [facility] [address],[place] [address] 08/18/2020 13:54:38 08/18/2020 15:05:57 screening for malformation 731177854 Z36.3 [id number] Melodie Jenkins [facility] [address],[place] [address] 09/22/2020 13:55:52 09/22/2020 15:22:24 Routine care 001908061 Z34.92 [id number] Marbin Marc MD [facility] [address],[place] [address] 09/22/2020 13:54:28 09/22/2020 14:56:16 Excessive growth affecting management of mother 08124806 O36.62X0 Z3A.24 [id number] Melodie Jenkins [facility] [address],[place] [address] 10/21/2020 13:40:04 10/21/2020 16:44:29 Routine care 033668969 Z34.92 [id number] Marbin Marc MD [facility] [address],[place] [address] 11/01/2020 12:36:48 11/01/2020 13:17:16 Routine care 672468776 Z34.91 Crohn's disease 28121727 K50.90 This patient is a 29-year-ol d [...] initial OB. We talked about genetic screening. [id number] Shanita Negrete, [facility] [address],[place] [address] 11/21/2020 14:02:00 11/21/2020 16:40:13 Routine care 772949072 Z34.93 [id number] Marbin Marc MD [facility] [address],[place] [address] 12/02/2020 10:49:04 12/02/2020 12:03:22 Routine care 706723467 Z34.91 Hemorrhoids 37427385 K64 .9 [id number] Melodie Jenkins [facility] [address],[place] [address] 12/16/2020 09:47:06 12/16/2020 23:14:17 Routine care 811102493 Z34.92 [id number] Marbin Marc MD [facility] [address],[place] [address] 12/16/2020 09:47:41 12/16/2020 11:48:06 Maternal obesity complicating , childbirth and the puerperium, antepartum 1205196723 07 O99.213 [id number] Marbin Marc MD [facility] [address],[place] [address] 12/16/2020 09:49:49 12/16/2020 11:48:32 Pre-existing maternal disease complicating 0467342452 6106 O99.891 [id number] Marbin Marc MD [facility] [address],[place] [address] 12/19/2020 11:17:29 12/19/2020 13:08:12 Maternal obesity complicating , childbirth and the puerperium, antepartum 1099995172 07 O99.213 [id number] MD Roxana Womack [address],[place] [address] 12/19/2020 12:47:08 12/19/2020 14:07:49 Abnormal heart rate 552270679 O36.8330 Z3A.37 [id number] Марина Morgan MD [facility] [address],[place] [address] 12/23/2020 09:38:51 12/23/2020 10:40:59 Pre-existing maternal disease complicating 9420293962 6106 O99.213 Z3A.38 [id number] Марина Morgan MD [facility] [address],[place] [address] 12/23/2020 09:39:10 12/23/2020 12:22:11 Maternal obesity complicating , childbirth and the puerperium, antepartum 3119751916 07 O99.213 [id number] Марина Morgan MD [facility] [address],[place] [address] 12/23/2020 09:39:23 12/23/2020 12:52:32 Routine care 388973130 Z34.83 [id number] Melodie Jenkins CNM [facility] [address],[place] [address] 12/29/2020 14:28:49 12/29/2020 15:50:41 Routine care 722655617 Z34.92 [id number] Marbin Marc MD [facility] [address],[place] [address] 12/29/2020 13:29:42 12/29/2020 14:28:54 Maternal obesity complicating , childbirth and the puerperium, antepartum 0520393732 07 O99.213 [id number] MD Roxana Womack [address],[place] [address] 12/29/2020 14:58:47 12/29/2020 16:29:49 Maternal obesity complicating , childbirth and the puerperium, antepartum 7403822894 07 O99.213 [id number] Melodie Jenkins CNM [facility] [address],[place] [address] 01/07/2021 11:52:57 01/07/2021 14:56:14 -induced hypertension 9459030195 9100 O13.9 PIH precaution s given. RTC for routine post visit. Pt desires tubal ligation. Discussed procedure risks and benefits. Will send to surgery scheduling . 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 Has only been taking 50mg and feels it works well for her. Female sterilization 608 06764 Z30.2 [id number] Marbin Marc MD [facility] [address],[facility] [place] [address] 01/19/2021 09:46:40 01/19/2021 10:50:08 Infection of uterus 195002074 N71.9 This patient is a 30-year-ol d [...] up in 5 days for routine follow-up. [id number] Melodie Jenkins CNM [facility] [address],[facility] [place] [address] 01/26/2021 11:56:15 01/27/2021 19:45:23 state 98848761 Z39.2 Continue to watch for signs/symp toms [...] paper copy of today's plan if desired [id number] Marbin Marc MD [facility] [address],[facility] [place] [address] 02/10/2021 15:49:50 02/10/2021 17:06:15 Female sterilization 44340844 Z30.2 this patient is a 30-year-ol d female who desires female sterilizat ion. We have agreed to perform laparoscop ic bilateral salpingect natasha. She understand s the risks, benefits, and alternativ es. She has completed the informed consent process and is ready to proceed. [id number] Melodie Jenkins CNM [facility] [address],[place] [address] 02/24/2021 14:20:01 02/24/2021 15:30:03 Contraception care management 731825620 Z30.9 Decided against tubal d/t chrons. Pt would like to start p.o.p. Discussed importance of taking at the same time every day. Also informed that it may not be as effective as estrogen containing pills. RTC in 3 months for wwe with med check. [id number] [facility] [address],[place] [address] 04/29/2021 10:35:14 04/30/2021 17:08:00 Pain of breast 47043927 N64.4 Due to descriptio n of pain being pins and needles will treat for yeast with a 2 week round of diflucan. If no resolution of symptoms will need to schedule imaging. Pt will return in 1-2 weeks for follow up. [id number] Marbin Marc MD [facility] [address],[place] [address] 06/04/2021 11:21:03 06/04/2021 17:42:14 [id number] [facility] [address],[place] [address] 07/29/2022 09:30:44 07/29/2022 10:04:29 Vaginitis 11476973 N76.0 Discussed use of mild soap like dove or ivory, cotton underwear w/out dye, hypoallerg enic detergent, wipe from front to back, avoid tub baths, keep perineum clean and dry, d/c use of baby wipes. Encouraged daily intake of yogurt or womens health probiotic. Internal and external affirm collected along with STD culture per patient request. [id number] VANESSA Hinds [facility] [address],[facility] [place] [address] 06/09/2023 09:14:02 06/09/2023 10:03:07 Gynecologic examination 54401393 Z01.419 WWEpap updateddec lined STI screeningr outine [...] of today's plan if desired. Irregular periods 395376 07 N92.6 UPT (-)labs orderedgiv en this is the first occurrence , continue to track cycles and return if no period for 3 months. Discussed importance of periods every 3 months for endometria l protection . [id number] VANESSA Hinds [facility] [address] [address] 06/22/2023 10:03:28 06/22/2023 11:08:01 Contraception care management 679488061 Z30.9 Discussed all control options in great [...] Disla Member ID Guarantor Name 04/29/2021 [id number]lo Oenl [id number] Agnieszka Onel 06/04/2021 1 [employer] [id number] Marlo Onel [id number] Agnieszka Onel 07/29/2022 1 [employer] [id number] Marlo Onel [id number] Agnieszka Onel 06/09/2023 1 [employer] [id number] Marlo Onel [id number] Agnieszka Onel 06/22/2023 1 [employer] [id number] Marlo Onel [id number] Agnieszka Onel Notes Date Note Type Note Provider Name and Address Organization Details Recorded Time 04/29/2021 text/html Pain in left millie ast while . Usually starts a few minutes into the feeding. Feels like pins and needles. Very sharp. No lumps, no redness, no tender areas. No fever or flu like symptoms. Melodie waller [facility] 05/18/2021 18:45:43 07/29/2022 text/html Vaginal/Vulvar ProblemReported bypatient.Notes:Water y discharge, occasional odor, occasional itching Melodie waller [facility] 07/29/2022 09:54:27 06/09/2023 text/html Annual GYNReport [...] mammograms starting age 41Notes:h/o abnormal pap in 2015 - no procedures requiredlast pap 04/2019 - normalLMP 04/08/23 - first time she has skipped a month VANESSA Hinds [address], [place], [address], [facility] 06/09/2023 10:02:07 06/22/2023 text/html 32yo [id number] ents for BC consultwould like BC to prevent and period regulationdenies h/o DVT/PE, HTN, Stroke/ND, cancer, liver disease, or migraine with auramedical hx: Crohn's VANESSA Hinds [address], [place], [address], [facility] 06/22/2023 11:01:35 OBGyn Episode Ob Episode Information Episode Created Date Number of Fetuses Patient Bloodtype Patient rh Status Prepregnancy Weight lbs Domestic Partner Domestic Partner Phone Father Name Legislative Correspondent Status 08/06/19 20 1 CLOSED Fetus Data [...] Domestic Partner Domestic Partner Phone Father Name Legislative Correspondent Status 08/06/19 20 1 CLOSED Fetus Data [...] Domestic Partner Domestic Partner Phone Father Name Legislative Correspondent Status 08/06/19 20 1 CLOSED Fetus Data [...] Domestic Partner Domestic Partner Phone Father Name Legislative Correspondent Status 06/24/19 21 1 CLOSED Fetus Data [...] Domestic Partner Domestic Partner Phone Father Name Legislative Correspondent Status 06/24/19 21 1 O Positive 207 CLOSED Fetus Data First Name Last Name Admitted to NICU Weight (g) Sex Living Outcome Pediatric Complications Fetus ID Race Codes Race Delivery Type 3401.94 M true Full Term 8333 Vaginal Delivery Problems Problem Notes pt cancelled 08/20 MF u/s & consult. 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 Anxiety [id number] sertraline Candelario Calculation Initial Candelario Date Initial [...] Weight in lbs Pre/Post Dialysis Refused Weight 208.001854591678 BP Diastolic BP Location Tested BP Systolic [...] Weight in lbs Pre/Post Dialysis Refused Weight 203.59855496153 BP Diastolic BP Location Tested BP Systolic [...] Weight in lbs Pre/Post Dialysis Refused Weight 203.87521381878 BP Diastolic BP Location Tested BP Systolic [...] Weight in lbs Pre/Post Dialysis Refused Weight 208.562777283740 BP Diastolic BP Location Tested BP Systolic BP Type 68 111 Fetus Heart Rate Present Fetus Movement A Yes Comments Doing well. She has not resc heduled m visit yet. Gave her the number for m to call and schedule. Mood stable. EPDS 10. U/S today. Await recommendations. Plan 1 hour gtt at next visit. Flowsheet Date 10/21/2020 Donahue Score Blood Edema Fundus Height Fundus Units Glucose Ketones Leukocytes Nitrite Labor Signs Protein Cervic Dilation Cervic Effacement Cervic Station neg none 30 trace Type Weight in lbs Pre/Post Dialysis Refused Weight 207.804487430123 BP Diastolic BP Location Tested BP Systolic [...] Weight in lbs Pre/Post Dialysis Refused Weight 211.330044961403 BP Diastolic BP Location Tested BP Systolic BP Type 82 128 Fetus Heart Rate Present A 145 Fetus Movement A Yes Comments 2+glucose, just ate, Flowsheet Date 11/21/2020 Donahue Score Blood Edema Fundus Height Fundus Units Glucose Ketones Leukocytes Nitrite Labor Signs Protein Cervic Dilation Cervic Effacement Cervic Station neg trace trace Type Weight in lbs Pre/Post Dialysis Refused Weight 211.363675866197 BP Diastolic BP Location Tested BP Systolic [...] Weight in lbs Pre/Post Dialysis Refused Weight 215.933599022157 BP Diastolic BP Location Tested BP Systolic [...] Weight in lbs Pre/Post Dialysis Refused Weight 213.180318195375 BP Diastolic BP Location Tested BP Systolic [...] Weight in lbs Pre/Post Dialysis Refused Weight 216.445782542884 BP Diastolic BP Location Tested BP Systolic [...] Weight in lbs Pre/Post Dialysis Refused Weight 218.069367665151 BP Diastolic BP Location Tested BP Systolic [...] Weight in lbs Pre/Post Dialysis Refused Weight 200.730264327628 BP Diastolic BP Location Tested BP Systolic [...] Estim ated Date of Delivery false Thalassemia (Bermudian, Romanian, Mediterranean, Or Background): MCV < 80 false Neural Tube Defect (Meningomyelocele, Spina Bifi da, Or Anencephaly) false Congenital Heart Defect false Down Syndrome false Andrea-Sachs (eg, Buddhist, Cajun, Turkish-Egyptian) f alse Renetta Disease false Sickle Cell Disease Or Trait () false Hemophilia Or Other Blood Disorders false Muscular Dystrophy false Cystic Fibrosis false [place]'s Chorea false Intellectual Disability/Autism false If Yes, [...] Sterilization Discharge Date Comments 1 Induce d [facility]- idural 38.6 false Melodie Jenkins CNM [place] Discharge Information Feeding Method Contraceptive Method Maternal HG B and HCT Levels
--- OUTSIDE RECORDS SUMMARY | 2024-09-12 19:40 | XMS_ITS | Encounter Summary ---
Author Organization [facility] Address [address] [facility] [place] [place] [address] Care Team Providers Care Operator Specialist Communications Name Role Phone Enoch Loyd MD Primary Care Provider [phone] Helen Garber Primary Care Provider Encounter Details Date Type Department Care Team (Late st Contact Info) Description 03/30/2013 Telephone [facility] Women's Health Maternal & Care [address] [place] [id number] Andreina Irving, [facility] [place] [address] [place] [address] [id number] Social History Tobacco Use Types Packs/Day Years Used Date Smoking Tobacco: Never Smokeless Tobacco: Never Alcohol Use Standard Drinks/Week Comments No 0 (1 standard drink = 0.6 oz pur e alcohol) Comments Yes Sex and Gender Information Value Date Recorded Sex Assigned at Not on file 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
--- OUTSIDE RECORDS SUMMARY | 2024-09-12 19:40 | XMS_ITS | Encounter Summary ---
Author Organization [facility] Address [address] [place] [address] Care Team Providers Care Accounts Payable Lead Name Role Phone Unavailable Primary Care Provider Unavailabl e Encounter Details Date Type Department Care Team (Late st Contact Info) Description 09/11/2024 External Device Data [facility] ABSTRACTION Provider, Abstract NO ADDRESS ON FILE Social History Tobacco Use Types Packs/Day Years Used Date Smoking Tobacco: Never Smokeless Tobacco: Never Feeling Safe Answer Date Recorded Are you [...] Diagnoses Not on filedocumented in this encounter Additional Health Concerns Infection Onset Date Last Indicated Resolved Time MRSA Comment:08/16/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
--- OUTSIDE RECORDS SUMMARY | 2024-09-12 19:40 | XMS_ITS | Encounter Summary ---
Author Organization [facility] Address [address] [facility] [place] [address] Care Team Providers Care Box Cutter Name Role Phone Enoch Loyd MD Primary Care Provider [phone] Helen Garber Primary Care Provider Encounter Details Date Type Department Care Team (Late st Contact Info) Description 12/27/[address] 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 Gender Identity Not on file Sexual Orientation Not on file documented as of this encounter Plan of Treatment Not on file documented as of this encounter Procedures Procedure Name Priority Date/Time Associated Diagnosis Comments DERMATOPATHOLOGY Routine 12/26/2023 12:0 0 AM CDT documented in this encounter Results * DERMATOPATHOLOGY (12/26/2023 12:00 AM CDT) Case Report Dermatopathology Report Case: [id number] Authorizing Provider: John Crenshaw MD Collected: 12/26/2023 12:00 AM Ordering Location: [facility] - Received: 12/27/2023 04:36 PM DermPath Lab Pathologist: Fabian Prater MD Specimen: Skin, left upper medial arm 4:58 PM CDT DERMATOPATHOLOGY LABORATORY Final Diagnosis Specimen A. SKIN, left upper medial arm: LENTIGINOUS MELANOCYTIC NEVUS, JUNCTIONAL TYPE, IRRITATED (D22.62) POST-INFLAMMATORY PIGMENT ALTERATION (L81.9) 4:58 PM CDT DERMATOPATHOLOGY LABORATORY at 1657 CDT Clinical History Hemorrhage vs nevus r/o atypia [...] characteristic determined by the Dermatopathology Laboratory at [facility], directed by Dr. Belle Prater. These tests need not be, and therefore are not, approved by the [place] Food and Drug Administration. The tests are used for clinical purposes. Billing Codes Specimen Charges Stain Charges 24733 1 96320 86132 1 1 4 4:58 PM CDT DERMATOPATHOLOGY LABORATORY Embedded Images 4 4:58 PM CDT DERMATOPATHOLOGY LABORATORY Pathology/Cytolog y TISSUE SPECIMEN FROM SKIN / Unknown 12/26/2023 12/27/2023 4:36 PM CDT John Crenshaw MD LAB - PATHOLOGY/CYTOLOGY ORDERA BLES Final Result DERMATOPATHOLOGY LABORATORY [facility] - Department of Dermatology [facility] Medicine [address] [place] [address], [address] [phone] documented in this encounter Visit Diagnoses Not on filedocumented in this encounter Care Teams Box Cutter Relationship Specialty Start Date End Date Enoch Loyd MD [address] [place] [address] [address] [place] [address] PCP - General Internal Medicine 02/28/13 06/18/24 Helen Garber APRN-EYELETTER [address] [facility] [address] [place] [phone] PCP - General Nurse Practitioner 06/19/24 documented as of this encounter
--- OUTSIDE RECORDS SUMMARY | 2024-09-12 19:40 | XMS_ITS | Clinical Summary ---
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 8:50 AM BUSINESS SERVICES SALES REPRESENTATIVE) Anatomical Region Laterality Modality Chest Digital Radiogra phy 06/19/2024 9:07 AM BUSINESS SERVICES SALES REPRESENTATIVE Narrative 06/19/2024 9:18 AM BUSINESS SERVICES SALES REPRESENTATIVE PROCEDURE: XR CHEST 1VW PORTABLE, DATE/TIME OF EXAM: 06/19/2024 8:50 AM, LOCATION [facility] INDICATION: Trauma ADDITIONAL CLINICAL INFORMATION: Ordering Provider Reason For Exam: Technologist Note: Additional: COMPARISON: None. TECHNIQUE: Frontal radiograph of the chest. FINDINGS/IMPRESSION: Cardiomediastinal silhouette appears normal. No pleural effusion or pneumothorax. No pulmonary consolidation. No acute osseous abnormality. Bilateral breast implants. Report dictated by John Paul Fink MD, (Airplane Electrical Repairer). Marya Jiménez MD have personally reviewed and interpreted this examination/study. > Interpreting Provider: Marya Ferrara MD on 06/19/2024 9:18 AM Procedure Note Marya Ferrara MD - 06/19/2024 PROCEDURE: XR CHEST 1VW PORTABLE, DATE/TIME OF EXAM: 06/19/2024 8:50 AM, LOCATION [facility] INDICATION: Trauma ADDITIONAL CLINICAL INFORMATION: Ordering Provider Reason For Exam: Technologist Note: Additional: COMPARISON: None. TECHNIQUE: Frontal radiograph of the chest. FINDINGS/IMPRESSION: Cardiomediastinal silhouette appears normal. No pleural effusion or pneumothorax. No pulmonary consolidation. No acute osseous abnormality. Bilateral breast implants. Report dictated by John Paul Fink MD, (Airplane Electrical Repairer). Marya Jiménez MD have personally reviewed and interpreted this examination/study. > Interpreting Provider: Marya Ferrara MD on 06/19/2024 9:18 AM Aleks Aguilar MD DIAGNOSTIC IMAGING ORDERABLES Final Result * XR PELVIS 1 OR 2VW (06/19/2024 8:50 AM BUSINESS SERVICES SALES REPRESENTATIVE) Anatomical Region Laterality Modality Pelvis Digital Radiogra phy 06/19/2024 9:06 AM BUSINESS SERVICES SALES REPRESENTATIVE Impressions 06/19/2024 9:15 AM BUSINESS SERVICES SALES REPRESENTATIVE IMPRESSION: No fracture or dislocation. > Dictated by John Paul Fink MD, (radiology director). Marya Jiménez MD have personally reviewed and interpreted this examination/study. > Interpreting Provider: Marya Ferrara MD on 06/19/2024 9:15 AM Narrative 06/19/2024 9:15 AM BUSINESS SERVICES SALES REPRESENTATIVE PROCEDURE: XR PELVIS 1 OR 2VW, DATE/TIME OF EXAM: 06/19/2024 8:50 AM, LOCATION [facility] INDICATION: Trauma Fracture suspected ADDITIONAL [...] OF EXAM: 06/19/2024 8:50 AM, LOCATION [facility] INDICATION: Trauma Fracture suspected ADDITIONAL [...] > Dictated by John Paul Fink MD, (radiology director). I, Marya Ferrara MD have personally reviewed and interpreted this examination/study. > Interpreting Provider: Marya Ferrara MD on 06/19/2024 9:15 AM Aleks Aguilar MD DIAGNOSTIC IMAGING ORDERABLES Final Result from Last 3 Months Insurance [facility] THIRD CONSTITUTION PARTY LIABILITY [facility] Care Teams Host/Hostess Relationship Specialty Start Date End Date Helen Garber, PIPE JEEPER-COURTESY CLERK [address] [phone] PCP - General Nurse Practitioner 06/19/24
[2024-09-12 19:45] VITALS: BP 116/73; PULSE 116; RESP 18; TEMP 36.9; O2SAT 100
--- NOTE | 2024-09-12 19:57 | PC.NURSE ---
Patient decided to leave and go to [facility] they don't have a wait
--- OUTSIDE RECORDS SUMMARY | 2024-09-12 20:20 | XMS_ITS | Clinical Summary ---
Author Organization [facility] Address [address] [place] [address] Phone Care Team Providers Care Automotive Brake Adjuster Name Role Phone Unavailable Primary Care Provider [...] STL ABSTRACTION Provider, Abstract 08/20/2024 Results Follow-Up [facility] Hyperbaric and Wound Care [facility] [address] [place] [address] Mary Lombardo FNP ANAEROBIC/AEROBIC CULTURE W GRAM STAIN 08/16/2024 8:30 AM CDT - 08/16/2024 11:59 PM CDT Hospital Encounter [facility] [address] [place] [address] Mary Lombardo FNP Discharge Disposition: Home or [...] Comment: FASTING:YES FASTING: YES Test Performed at: [facility] [address] [place] [address] Pancho Barnett Blood 08/24/2024 7:45 AM CDT 08/24/2024 7:46 AM CDT Mary BENZP HEMATOLOGY ORDERABLES Final Result Performing Organization Address City/State/[facility] Phone Number [facility] [phone] [place] [address] [place] [address] * SEDIMENTATION RATE (08/24/2024 7:45 AM CDT) Pathologist [facility] ESR (SEDIMENTATION RATE) 8 < OR = 20 mm/h [facility] Comment: FASTING:YES FASTING: YES Test Performed at: [place] [address] [place] [address] [facility] Blood 08/24/2024 7:45 AM CDT 08/24/2024 7:46 AM CDT us Mary WATKINS HEMATOLOGY ORDERABLES Final Result Performing Organization Address [facility] Phone Number [facility] [phone] [place] [address] [place] [address] * C-REACTIVE PROTEIN (08/24/2024 7:45 AM CDT) Pathologist [facility] CRP <5.0 <8.0 mg/L [facility] Comment: FASTING:YES FASTING: YES Test Performed at: [place] [address] [place] [address] [facility] Blood 08/24/2024 7:45 AM CDT 08/24/2024 7:46 AM CDT us Mary WATKINS CHEMISTRY ORDERABLES Final R esult Performing Organization Address [facility] Code Phone Number [facility] [phone] [place] [address] [place] [address] * COMPREHENSIVE METABOLIC PANEL (08/24/2024 7:45 AM CDT) Pathologist [facility] GLUCOSE 80 65 - 99 mg/dL [facility] Comment: Fasting reference interval BUN 17 7 - 25 mg/dL [facility] CREATININE 0.82 0.50 - 0.97 mg/dL [facility] GFR 97 > OR = 60 mL/min/1. 73m2 [facility] BUN/CREAT RATIO SEE NOTE: 6 - 22 (calc) [facility] Comment: Not Reported: BUN and Creatinine are within reference range. SODIUM 137 135 - 146 mmol/L [facility]am[facility] POTASSIUM 4.3 3.5 - 5.3 mmol/L Elvis Sprout[facility]arm[facility] Jaramillo CHLORIDE 102 98 - 110 mmol/L [facility] CO2 28 20 - 32 mmol/L Elvis Te[facility]adaeTippingCarm[facility] Jaramillo CALCIUM 9.4 8.6 - 10.2 mg/dL Elvis TejadaCarmen Jaramillo TOTAL PROTEIN 7.2 6.1 - 8.1 g/dL Elvis SproutCarmen Jaramillo ALBUMIN 4.4 3.6 - 5.1 g/dL [facility] GLOBULIN 2.8 1.9 - 3.7 g/dL (calc) [facility] ALBUMIN/GLOBULIN RATIO 1.6 1.0 - 2.5 (calc) [facility] BILIRUBIN TOTAL 0.4 0.2 - 1.2 mg/dL [facility] ALKALINE PHOSPHATASE 59 31 - 125 U/L [facility] AST 19 10 - 30 U/L [facility] ALT 24 6 - 29 U/L [facility] Comment: FASTING:YES FASTING: YES Test Performed at: [place] [address] [address] [place] [address] Pancho Barnett Blood 08/24/2024 7:45 AM CDT 08/24/2024 7:46 AM CDT Mary BENZP CHEMISTRY ORDERABLES Final R esult [facility] [phone] [place] [address] [address] [place] [address] * (ABNORMAL) ANAEROBIC/AEROBIC CULTURE W GRAM STAIN (08/16/2024 9:38 AM CDT) ANAEROBIC CULTURE SEE NOTE Qu [facility] Comment: CULTURE, ANAEROBIC BACTERIA W/GRAM STAIN Micro Number: [id number] Test Status: Final Specimen Source: Breast, right Specimen Quality: Adequate Gram Stain: Moderate White blood cells seen No organisms seen Result: No anaerobes isolated. AEROBIC CULTURE SEE NOTE(A) [facility] Comment: CULTURE, AEROBIC BACTERIA Micro Number: [id number] Test Status: Final Specimen Source: Breast, right [...] values are not provided. 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
--- OUTSIDE RECORDS SUMMARY | 2024-09-12 20:20 | XMS_ITS | Encounter Summary ---
Author Organization [facility] Address [address] [place] [address] Care Team Providers Care Entry Level Accounting Clerk Name Role Phone Enoch Loyd MD Primary Care Provider [phone] Helen Garber Primary Care Provider Encounter Details Date Type Department Care Team (Late st Contact Info) Description 03/30/2013 Telephone [facility] Women's Health Maternal & Care [address] [place] [id number] Andreina Irving, [facility] [place] [address] [place] [phone] Social History Tobacco Use Types Packs/Day Years Used Date Smoking Tobacco: Never Smokeless Tobacco: Never Alcohol Use Standard Drinks/Week Comments No 0 (1 standard drink = 0.6 oz pur e alcohol) Comments Yes Sex and Gender Information Value Date Recorded Sex Assigned at Not on file Legal Sex 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
--- OUTSIDE RECORDS SUMMARY | 2024-09-12 20:20 | XMS_ITS | Clinical Summary ---
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 John Paul Fink MD, (supervisor residential). Marya Jiménez MD have personally reviewed and interpreted this examination/study. > Interpreting Provider: Marya Ferrara MD on 06/19/2024 9:15 AM Narrative 06/19/2024 9:15 AM LABORER PETROLEUM REFINERY PROCEDURE: XR PELVIS 1 OR 2VW, DATE/TIME OF EXAM: 06/19/2024 8:50 AM, LOCATION [facility] INDICATION: Trauma Fracture suspected ADDITIONAL CLINICAL INFORMATION: [...] DATE/TIME OF EXAM: 06/19/2024 8:50 AM, LOCATION [facility] INDICATION: Trauma Fracture suspected ADDITIONAL CLINICAL INFORMATION: [...] > Dictated by John Paul Fink MD, (supervisor residential). I, Marya Ferrara MD have personally reviewed and interpreted this examination/study. > Interpreting Provider: Marya Ferrara MD on 06/19/2024 9:15 AM Aleks Aguilar MD DIAGNOSTIC IMAGING ORDERABLES Final Result from Last 3 Months Insurance [facility] [employer] [facility] Care Teams Consumer Insights Specialist Relationship Specialty Start Date End Date Helen Garber, REED CLEANER-ACTOR UNDERSTUDY [address] [phone] PCP - General Nurse Practitioner 06/19/24
--- OUTSIDE RECORDS SUMMARY | 2024-09-12 20:20 | XMS_ITS | Encounter Summary ---
[facility] Organization [facility] Address [address] [place] [address] Care Team Providers Care Carbon Capture Power Plant Operator Name Role Phone Unavailable Primary Care Provider [...]
--- OUTSIDE RECORDS SUMMARY | 2024-09-12 20:20 | XMS_ITS | Encounter Summary ---
Author Organization [facility] Health Address [address] [facility] [place] [address] Care Team Providers Care Sales Warehouse Driver Name Role Phone Enoch Loyd MD Primary Care Provider [phone] Helen Garber Primary Care Provider Encounter Details Date Type Department Care Team (Late st Contact Info) Description 12/27/2023 Lab Requisition [facility] - DermPath Lab [address] [facility] [place] [address] John Crenshaw MD [address] [place] [address] Social History Tobacco Use Types Packs/Day Years Used Date Smoking Tobacco: Never Smokeless Tobacco: Never Alcohol Use Standard Drinks/Week Comments No 0 (1 standard drink = 0.6 oz pur e alcohol) Comments Unknown Sex and Gender Information Value Date Recorded Sex Assigned at Not on file Legal Sex Female 5:39 AM BAKER Gender Identity Not on file Sexual Orientation Not on file documented as of this encounter Plan of Treatment Not on file documented as of this encounter Procedures Procedure Name Priority Date/Time Associated Diagnosis Comments DERMATOPATHOLOGY Routine 12/26/2023 12:0 0 AM CDT documented in this encounter Results * DERMATOPATHOLOGY (12/26/2023 12:00 AM CDT) Case Report Dermatopathology Report Case: [id number] Authorizing Provider: John Crenshaw MD Collected: 12/26/2023 12:00 AM Ordering Location: [facility] - Received: 12/27/2023 04:36 PM [...] characteristic determined by the Dermatopathology Laboratory at [facility], directed by Dr. Belle Prater. These tests need not be, and therefore are not, approved by the [place] Food and Drug Administration. The tests are used for clinical purposes. Billing Codes Specimen Charges Stain Charges 97603 1 95075 39792 1 1 4 4:58 PM CDT DERMATOPATHOLOGY LABORATORY Embedded Images 4 4:58 PM CDT DERMATOPATHOLOGY LABORATORY Pathology/Cytolog y TISSUE SPECIMEN FROM SKIN / Unknown 12/26/2023 12/27/2023 4:36 PM CDT John Crenshaw MD LAB - PATHOLOGY/CYTOLOGY ORDERA BLES Final Result DERMATOPATHOLOGY LABORATORY [facility] - Department of Dermatology [facility] [address] [place] [address], [address] [phone] documented in this encounter Visit Diagnoses Not on filedocumented in this encounter Care Teams Sales Warehouse Driver Relationship Specialty Start Date End Date Enoch Loyd MD [address] [place] [address] [address] [place] [address] PCP - General Internal Medicine 02/28/13 06/18/24 Helen Garber APRN-PECAN HULLER [address] [facility] [address] [place] [phone] PCP - General Nurse Practitioner 06/19/24 documented as of this encounter
== END 2024-09-12 20:55 | disposition left against medical advice (07) ==
PROVIDERS: PCP Nurse Practitioner Family
DX: R50.9 Fever, unspecified (principal)
CPT/HCPCS: 99199

== ENCOUNTER 2024-09-28 01:20 | Day surgery (SDC) | payer OTHER, SELFPAY ==
--- NOTE | 2024-09-21 12:49 | PC.NURSE ---
Report to the Outpatient Waiting Room, entrance under the green pavilion located off [facility], at time _1200_ on date _[phone]_. Planned Procedure Time: _2pm_.? Time changes happen often and if your time is changed the preop area will call you the afternoon before. - You and your visitor will be asked to self-screen and do not enter if you have any COVID symptoms. Please call surgeon if you need to reschedule. - A mask is optional within the hospital at this time. Patients may have clear liquids (water, carbonated beverages, clear teas, apple juice) until 3 hours prior to surgery with a maximum of 20 ounces. - No food from midnight until time of surgery and no smoking, or chewing tobacco (or any form of nicotine). No chewing gum, candy or mints. Take only the following medications with a SIP of water on the morning of surgery: ___Antibiotics____ DO NOT STOP ANY OF YOUR OTHER PRESCRIPTION MEDICATIONS PRIOR TO SURGERY EXCEPT THE FOLLOWING Hold all vitamins and supplements for 3 days per anesthesiologist. Medications to discontinue per physician Date to take last dose Please no make-up, nail equatorial guinean, hairspray, perfume, deodorant, or body powder the day of surgery.? No jewelry (including any body piercings) or valuables the day of surgery, leave them at home.? Please take a shower or bath the night before, or the morning of, surgery with an antibacterial soap.? Wear comfortable, loose fitting clothing.? - Jewelry must be removed prior to entering the operating room.? Rings and piercings that are not removed may be cut off. - The hospital will not accept responsibility for valuables.? - Please leave all valuables, including medications, at home the day of surgery. If you are going home after surgery, a licensed warehouse driver must drive you home.? - NO public transportation without another adult if you receive anesthesia. - We recommend that an adult stay with you for 24 hours following discharge. - We also recommend that you do not drive, make important decision, drink alcoholic beverages, or take any drugs that were not prescribed by your health care provider for at least 24 hours after your discharge time. Follow any additional instructions given to you from your surgeon. Telephone instructions given to __Agnieszka__and asked if any additional questions and then verbalized understanding. Patient advised to call surgeon office or pre surgery nurse liaison [phone] if any additional questions.
[2024-09-21 12:54] VITALS: BMI 34.7
[2024-09-28] VITALS (7 sets, daily range): BP systolic 125–135; BP diastolic 76–84; PULSE 79–112; RESP 16–29; TEMP 36.4–37.2; O2SAT 96–100
--- OUTSIDE RECORDS SUMMARY | 2024-09-28 01:22 | XMS_ITS | Clinical Summary ---
Author Organization [facility] Address [address] [facility] [address] [phone] Phone Care Team Providers Care Commercial Manager Name Role Phone Unavailable Primary Care Provider [...] Encounters Date Type Department Care Team Description 09/18/2024 External Device Data STL ABSTRACTION Provider, Abstract 09/11/2024 External Device Data STL ABSTRACTION Provider, Abstract 09/06/2024 External Device Data STL ABSTRACTION Provider, Abstract 08/21/2024 External Device Data STL ABSTRACTION Provider, Abstract 08/21/2024 External Device Data STL ABSTRACTION Provider, Abstract 08/21/2024 External Device Data STL ABSTRACTION Provider, Abstract 08/20/2024 Results Follow-Up [facility] Hyperbaric and Wound Care [address] [address] Mary Lombardo, ROLAND ANAEROBIC/AEROBIC CULTURE W GRAM STAIN 08/16/2024 8:30 AM CDT - 08/16/2024 11:59 PM CDT Hospital Encounter [facility] Hyperbaric and Wound Care [facility] [address] [place] [address] Mary Lombardo FNP Discharge Disposition: Home or [...] layer exposed (CMS/HCC) C-REACTIVE PROTEIN Routine 08/24/2024 7 :45 AM CDT Chronic ulcer of skin, with [...] 3.80 - 5.10 Million/u L [facility] HEMOGLOBIN 15.0 11.7 - 15.5 g/dL [facility] HEMATOCRIT 45.8(H) 35.0 - 45.0 % [facility] MCV 90.7 80.0 - 100.0 fL [facility] MCH 29.7 27.0 - 33.0 pg [facility] MCHC 32.8 32.0 - 36.0 g/dL [facility] Comment: For adults, a slight decrease in the calculated MCHC value (in the range of 30 to 32 g/dL) is most likely not clinically significant; however, it should be interpreted with caution in correlation with other red cell parameters and the patient's clinical condition. RDW 12.9 11.0 - 15.0 % [facility] PLATELETS 240 140 - 400 Thousand/ uL [facility] MPV 10.3 7.5 - 12.5 fL [facility] NEUTROPHIL ABSOLUTE 3,785 1,500 - 7,800 cells/uL [facility] LYMPHOCYTE ABSOLUTE 1,362 850 - 3,900 cells/uL [facility] MONOCYTE ABSOLUTE 439 200 - 950 cells/uL [facility] EOSINOPHIL ABSOLUTE 91 15 - 500 cells/uL [facility] BASOPHILS ABSOLUTE 23 0 - 200 cells/uL [facility] NEUTROPHIL 66.4 % [facility] LYMPHOCYTES 23.9 % [facility] MONOCYTE 7.7 % [facility] EOSINOPHILS 1.6 % [facility] BASOPHILS 0.4 % [facility] Comment: FASTING:YES FASTING: YES Test Performed at: [facility] [address] [place] [address] Pancho Barnett Blood 08/24/2024 7:45 AM CDT 08/24/2024 7:46 AM CDT Mary WATKINS HEMATOLOGY ORDERABLES Final Result [facility] [phone] [place] [address] [address] [place] [address] * SEDIMENTATION RATE (08/24/2024 7:45 AM CDT) Pathologist [facility] ESR (SEDIMENTATION RATE) 8 < OR = 20 mm/h [facility] [place] [place] [facility] Comment: FASTING:YES FASTING: YES Test Performed at: [place] [address] [address] [place] [address] [facility] Blood 08/24/2024 7:45 AM CDT 08/24/2024 7:46 AM CDT us Mary WATKINS HEMATOLOGY ORDERABLES Final Result Performing Organization Address City/[facility]/ZIP Code Phone Number [facility] [phone] [place] [address] [address] [place] [address] * C-REACTIVE PROTEIN (08/24/2024 7:45 AM CDT) [facility] CRP <5.0 <8.0 mg/L [facility] Comment: FASTING:YES FASTING: YES Test Performed at: [place] [address] [place] [address] [facility] Blood 08/24/2024 7:45 AM CDT 08/24/2024 7:46 AM CDT us Mary WATKINS CHEMISTRY ORDERABLES Final R esult Performing Organization Address City/[facility]/ZIP Code Phone Number [facility] [phone] [place] [address] [address] [place] [address] * COMPREHENSIVE METABOLIC PANEL (08/24/2024 7:45 AM CDT) Pathologist [facility] GLUCOSE 80 65 - 99 mg/dL [facility] [[email or web address] [employer] [facility] zane Jaramillo Comment: Fasting reference interval BUN 17 7 - 25 mg/dL [facility] [place] [facility] CREATININE 0.82 0.50 - 0.97 mg/dL [facility] [[email or web address]] [employer] [facility] zane [facility] GFR 97 > OR = 60 mL/min/1. 73m2 [facility] [[email or web address]] [facility] BUN/CREAT RATIO SEE NOTE: 6 - 22 (calc) [facility] Comment: Not Reported: BUN and Creatinine are within reference range. SODIUM 137 135 - 146 mmol/L [facility] POTASSIUM 4.3 3.5 - 5.3 mmol/L [facility] CHLORIDE 102 98 - 110 mmol/L [facility] CO2 28 20 - 32 mmol/L [facility] CALCIUM 9.4 8.6 - 10.2 mg/dL [facility] TOTAL PROTEIN 7.2 6.1 - 8.1 g/dL [facility] ALBUMIN 4.4 3.6 - 5.1 g/dL [facility] GLOBULIN 2.8 1.9 - 3.7 g/dL (calc) [facility] ALBUMIN/GLOBULIN RATIO 1.6 1.0 - 2.5 (calc) [facility] BILIRUBIN TOTAL 0.4 0.2 - 1.2 mg/dL [facility] ALKALINE PHOSPHATASE 59 31 - 125 U/L [facility] AST 19 10 - 30 U/L [facility] ALT 24 6 - 29 U/L [facility] Comment: FASTING:YES FASTING: YES Test Performed at: [place] [address] [address] [place] [address] Panch[facility] Barnett Blood 08/24/2024 7:45 AM CDT 08/24/2024 7:46 AM CDT Mary WATKINS CHEMISTRY ORDERABLES Final R esult [facility] [phone] [place] [address] [address] [place] [address] * (ABNORMAL) ANAEROBIC/AEROBIC CULTURE W GRAM STAIN (08/16/2024 9:38 AM CDT) ANAEROBIC CULTURE SEE NOTE [facility] Comment: CULTURE, ANAEROBIC BACTERIA W/GRAM STAIN Micro Number: [id number] Test Status: Final Specimen Source: Breast, right Specimen Quality: Adequate Gram Stain: Moderate White blood cells seen No organisms seen Result: No anaerobes isolated. AEROBIC CULTURE SEE NOTE(A) [facility] Comment: CULTURE, AEROBIC BACTERIA Micro Number: [id number] Test Status: Final Specimen Source: Breast, right [...] values are not provided. Test Performed at: [place] [address] [address] [place] [address] [facility] Lesion/Drainage Fluid RIGHT BREAST STRUCTURE / Unknown 08/16/2024 9:38 AM CDT 08/17/2024 3:15 AM CDT Mary WATKINS MICROBIOLOGY - GENERAL ORDER LESLIE Final Result [facility] [phone] [place] [address] [address] [address] from Last 3 Months Insurance [facility] [id number] [address] [place]
--- OUTSIDE RECORDS SUMMARY | 2024-09-28 01:22 | XMS_ITS | Clinical Summary ---
Author Organization [facility] Address [address] [place] [address] Care Team Providers Care Extension Clerk Name Role Phone Garber Helen Hoskins APRN-CLINICAL PRODUCT MANAGER Primary Care Provider Source Comments [facility],non-owned Affiliates and Associated Physician Practices is amultiple site organization consisting of ambulatory clinics and hospital sitesin [place] and [place]. This disclosure is being madepursuant to the Care Everywhere program and may not contain all information available regarding this patient. Last updated 18.[facility] Allergies No known active allergies Medications * [...] have false negative result 2. IF abnormal Aix Administrator to refer to Pediatric Neurology [Consider [facility] IF needed] 1. IF the referring OB has concerns that this plan cannot be performed without a referral to the [facility] please let us know and we [...] 1. Agnieszka was instructed to notify her Aix Administrator of the use of this medication 1. 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 Dyspnea, unspecified 11/24/2020 Overview (11/26/2020): 06/18/20: 24 hr holter monitor: Sinus rhythm HR range 48-146; average HR 81 bpm. 2 premature supraventricular complexes. No SVT. [facility] Cardiology consult note is in care [...] has been in remission since 2007 Immunizations Immunization Administration Dates Next Due HEP [...] on file Legal Sex Female 5:39 AM BROADCAST MAINTENANCE TECHNICIAN Gender Identity Not on file Sexual Orientation Not on file Last Filed Vital Signs Vital Sign Reading Time Taken Comments Blood Pressure 120/85 06/19/2024 3:10 PM BROADCAST MAINTENANCE TECHNICIAN Pulse 82 06/19/2024 3:10 PM BROADCAST MAINTENANCE TECHNICIAN Temperature 36.6 C (97.8 F) 06/19/2024 3:10 PM BROADCAST MAINTENANCE TECHNICIAN Respiratory Rate 16 06/19/2024 3:10 PM BROADCAST MAINTENANCE TECHNICIAN Oxygen Saturation 98% 06/19/2024 3:10 PM BROADCAST MAINTENANCE TECHNICIAN Inhaled Oxygen Concentration - - Weight 96.2 kg (212 lb 1.3 oz) 06/19/2024 8:34 A M BROADCAST MAINTENANCE TECHNICIAN Height 170.2 cm (5' 7.01) 06/19/2024 8:34 AM CS T Body Mass Index 33.21 06/19/2024 8:34 AM BROADCAST MAINTENANCE TECHNICIAN Plan of Treatment Health Maintenance Due Date Last Done Comments DTAP/TDAP/TD VACCINES (1 - Tdap) 08/12/2010 HEPATITIS B VACCINE (1 of 3 - 19+ 3-dose series) 08/12/2010 PNEUMOCOCCAL VACCINE (1 of 2 - PCV) 08/12/2010 COVID-19 VACCINE (1 - 2023-2 5 season) 2023 DEPRESSION SCREENING 04/18/2024 INFLUENZA VACCINE (Season Ended) 2024 04/06/2018, 06/03/2015 PAP SMEAR 06/09/2026 06/09/2023, 06/09/2023 ZOSTER VACCINE (1 of 2) 08/12/2041 [...] patient's age to complete this topic Insurance [place], [place] [id number] [employer] LIABILITY Care Teams Extension Clerk Relationship Specialty Start Date End Date Helen Garber, CHAPLAIN RESIDENT-CLINICAL PRODUCT MANAGER [address] [facility] [address] [phone] PCP - General Nurse Practitioner 06/19/24
--- OUTSIDE RECORDS SUMMARY | 2024-09-28 01:22 | XMS_ITS | Encounter Summary ---
Author Organization [facility] Address [address] [facility] [place] [address] Care Team Providers Care Clay Products Glazer Name Role Phone Enoch Loyd MD Primary Care Provider [phone] Helen Garber Primary Care Provider Encounter Details Date Type Department Care Team (Late st Contact Info) Description 03/30/2013 Telephone [facility] Women's Health Maternal & Care [address] [place] [phone] Andreina Irving, [facility] [place] [address] [place] [phone] Social History Tobacco Use Types Packs/Day Years Used Date Smoking Tobacco: Never Smokeless Tobacco: Never Alcohol Use Standard Drinks/Week Comments No 0 (1 standard drink = 0.6 oz pur e alcohol) Comments Yes Sex and Gender Information Value Date Recorded Sex Assigned at Not on file Legal Sex Female 5:39 AM EXAM PROCTOR Gender Identity Not on file Sexual Orientation Not on file documented as of this encounter Plan of Treatment Not on file documented as of this encounter Visit Diagnoses Not on filedocumented in this encounter Care Teams [employer] Glazer Relationship Specialty Start Date End Date Enoch Loyd MD [address] [place] [address] [address] [place] [phone] PCP - General Internal Medicine 02/28/13 06/18/24 Helen Garber APRN-ENGLISH COMPOSITION INSTRUCTOR [address] [phone] PCP - General Nurse Practitioner 06/19/24 documented as of this encounter
--- OUTSIDE RECORDS SUMMARY | 2024-09-28 01:22 | XMS_ITS | Encounter Summary ---
Author Organization [facility] Address [address] [place] [address] Care Team Providers Care Home Lighting Adviser Name Role Phone Enoch Loyd MD Primary Care Provider [phone] Helen Garber Primary Care Provider Encounter Details Date Type Department Care Team (Late st Contact Info) Description 12/27/2023 Lab Requisition [facility] - DermPath Lab [address] [place] [address] John Crenshaw MD [address] [place] [address] Social History Tobacco Use Types Packs/Day Years Used Date Smoking Tobacco: Never Smokeless Tobacco: Never Alcohol Use Standard Drinks/Week Comments No 0 (1 standard drink = 0.6 oz pur e alcohol) Comments Unknown Sex and Gender Information Value Date Recorded Sex Assigned at Not on file Legal Sex Female 5:39 AM [employer] Gender Identity Not on file Sexual Orientation Not on file documented as of this encounter Plan of Treatment Not on file documented as of this encounter Procedures Procedure Name Priority Date/Time Associated Diagnosis Comments DERMATOPATHOLOGY Routine 12/26/2023 12:0 0 AM CDT documented in this encounter Results * DERMATOPATHOLOGY (12/26/2023 12:00 AM CDT) Case Report Dermatopathology Report Case: [id number] Authorizing Provider: John Crenshaw MD Collected: 12/26/2023 12:00 AM Ordering Location: [facility] - Received: 12/27/2023 04:36 PM [...] characteristic determined by the Dermatopathology Laboratory at [facility], directed by Dr. Belle Prater. These tests need not be, and therefore are not, approved by the [place] Food and Drug Administration. The tests are used for clinical purposes. Billing Codes Specimen Charges Stain Charges 73015 1 [id number] [id number] 1 1 4 4:58 PM CDT DERMATOPATHOLOGY LABORATORY Embedded Images 4 4:58 PM CDT DERMATOPATHOLOGY LABORATORY Pathology/Cytolog y TISSUE SPECIMEN FROM SKIN / Unknown 12/26/2023 12/27/2023 4:36 PM CDT John Crenshaw MD LAB - PATHOLOGY/CYTOLOGY ORDERA BLES Final Result DERMATOPATHOLOGY LABORATORY [facility] - Department of Dermatology [facility] Medicine [address] [place] [address], [address] [phone] documented in this encounter Visit Diagnoses Not on filedocumented in this encounter Care Teams Home Lighting Adviser Relationship Specialty Start Date End Date Enoch Loyd MD [address] [place] [address] [address] [place] [address] PCP - General Internal Medicine 02/28/13 06/18/24 Helen Garber APRN-[employer] SALES REPRESENTATIVE [address] [facility] [address] [place] [id number] PCP - General Nurse Practitioner 06/19/24 documented as of this encounter
--- OUTSIDE RECORDS SUMMARY | 2024-09-28 01:22 | XMS_ITS | Clinical Summary ---
Author Organization [facility] ospital Address [address] [place] [address] Care Team Providers Care Content Coordinator Name Role Phone Marbin Marc MD Primary Care Provider Allergies Active Allergy Reactions Criticality Noted Date Comments Methylprednisolone Seizures High 09/12/2024 Medications linezolid (ZYVOX) 600 mg tabletIndicatio ns:Skin/Soft Tissue Infection Take 1 tablet (600 mg total) by mouth 2 (two) times a day for 10 days 20 tablet 09/13/2024 Active Problems Problem Noted Date Diagnosed Date Fever, unspecified fever cause 09/13/2024 Cellulitis of breast 09/13/2024 Assessment & Plan (09/13/2024 4:28 AM CDT): Localized right breast along surgical site CT imaging identifies possible seroma versus hematoma (please see official report) Recent antibiotic treatment with Levaquin postprocedure (08/29/2024, Fourteen day treatment course with Levaquin) IV antibiotic with vancomycin and ceftriaxone Blood culture x2 sets sent Breast ultrasound evaluation pending General surgery consultation request placed in ER Patient has been placed on wait list for transfer to [facility]. Pending bed availability and notification of hospitalist service at [facility] and/or patient's general surgeon and [facility]. Pain management p.r.n. Lipid screening 06/18/2020 Chest pain 06/17/2020 Palpitations 06/17/2020 Dizziness 06/17/2020 11 weeks gestation of 06/17/2020 HENSON (dyspnea on exertion) 06/17/2020 Crohn's disease of colon 08/28/2008 Encounters Date Type Department Care Team Description 09/17/2024 Patient Self-Triage [facility] [place] [address] Mychart, Generic Provider 09/13/2024 12:26 AM CDT - 09/13/2024 2:41 PM CDT Hospital Encounter [address] [address] Marlo Lomas Jr., MD Patel, Satyen V., MD Smith, Alex Jalloh MD Fever, unspecified fever cause (Primary Dx); Cellulitis of right breast; Infection of superficial incisional surgical site after procedure, initial encounter; Cellulitis of breast Discharge Disposition: Discharge to home or self care from Last 3 Months Immunizations Immunization Administration Dates Next Due H1N1 Inj 03/10/2009 Surgical History Surgery Date Site/Laterality Comments MYRINGOTOMY W/ TUBES Myringotomy - (Added by TW Conv) BREAST SURGERY COLON SURGERY HERNIA REPAIR Medical History Medical History Date Comments Routine or child health check Normal Routine History And Physical Adolescent (12 - 17) - (Added by TW Conv) Exercise-induced bronchospasm Ex ercise-induced asthma - (Added by TW Conv) Personal history of diseases of the blood and blood-forming organs and certain disorders involving the immune mechanism History of an emia - (Added by TW Conv) Crohn's disease (HCC) Family History Medical History Relation Name Comments Intestinal polyp Maternal Grandfather Godwin ign Polyps Of The Large Intestine - (Added by TW Conv) Anemia Other Anemia - (Added by TW Conv) Relation Name Status Comments Maternal Grandfather Other Social History Tobacco Use Types Packs/Day Years Used Date Smoking Tobacco: Never Smokeless Tobacco: Never [facility] Utilities Answer Date Recorded In the past 12 months has th e electric, gas, oil, or water company threatened to shut off services in your home? No 09/13/2024 Social Connection and Isolation Panel [NHANES] A nswer Date Recorded In a typical week, how many times do you talk on the phone with family, friends, or neighbors? Three times a week 09/13/2024 How often do you get togethe r with friends or relatives? Three times a week 09/13/2024 How often do you attend chur ch or amish services? Never 09/13/2024 Do you belong to any clubs o r organizations such as advent groups, unions, fraternal or athletic groups, or school groups? No 09/13/2024 How often do you attend meet ings of the clubs or organizations you belong to? Never 09/13/2024 Are you , , di vorced, , never , or living with a partner? 09/13/2024 Overall Financial Resource Strain (CARDIA) Answe r Date Recorded How hard is it for you to pa y for the very basics like food, housing, medical care, and heating? Not very hard 09/13/2024 Hunger Vital Sign Answer Date Recorded Within the past 12 months, y ou worried that your food would run out before you got the money to buy more. Never true 09/14/19 25 Within the past 12 months, t he food you bought just didn't last and you didn't have money to get more. Never true 09/13/2024 PRAPARE - Transportation Answer Date Re corded In the past 12 months, has l ack of transportation kept you from medical appointments or from getting medications? No 08/17 In the past 12 months, has l ack of transportation kept you from meetings, work, or from getting things needed for daily living? No 09/13/2024 Housing Stability Vital Sign Answer Ernesto e Recorded In the last 12 months, was t here a time when you were not able to pay the mortgage or rent on time? No 09/13/2024 In the past 12 months, how m any times have you moved where you were living? 0 09/13/2024 At any time in the past 12 m [facility], were you homeless or living in a long term (including now)? No 09/13/2024 Personal Safety Answer Date Recorded Have you ever been in or are you currently in a harmful physical or emotional relationship or is someone making you feel afraid or unsafe? Denies 09/12/2024 Comments Unknown Sex and Gender Information Value Date Recorded Sex Assigned at Not on file Legal Sex Female 2:21 AM [employer]AIL PRESENT[employer] Gender Identity Not on file Sexual Orientation Not on file Obstetrics History Last Filed Vital Signs Vital Sign Reading Time Taken Comments Blood Pressure 119/63 09/13/2024 7:11 AM CDT Pulse 99 09/13/2024 7:11 AM CDT Temperature 37.2 C (99 F) 09/13/2024 7:11 AM CDT Respiratory Rate 18 09/13/2024 7:11 AM CDT Oxygen Saturation 99% 09/13/2024 7:11 AM CDT Inhaled Oxygen Concentration - - Weight 95.2 kg (209 lb 14.1 oz) 09/13/2024 4:07 AM CDT Height 167.6 cm (5' 6) 09/13/2024 4:07 AM CDT Body Mass Index 33.88 09/13/2024 4:07 AM CDT Plan of Treatment Health Maintenance Due Date Last Done Comments Cervical Cancer Screening 1991 Depression Screening 1991 Hepatitis C Screening 1991 DTaP/Tdap/Td Vaccine (1 - Tdap) 08/12/2002 Varicella Vaccines (1 of 2 - 13+ 2-dose series) 08/12/2004 Hepatitis B Screening 08/12/2009 Regular Well Visit/Exam 18-64 08/12/2009 Pneumococcal vaccine <65 (1 of 2 - PCV) 08/12/2010 Influenza Vaccine (Season Ended) 2024 HPV Vaccines Aged Out No longer eligi ble based on patient's age to complete this topic Medical Devices Implanted Type Area Mac Developer Device Identifier Shelf Expiration Date Model / Serial / Lot Breast-08/30/19 25 Implanted:08/16 (Quantity not on file) Breast Bilateral: Breast Description:Ifeanyi Montes MD Procedures Procedure Name Priority Date/Time Associated Diagnosis Comments EGFR Routine 09/13/2024 5:22 AM CDT DIFFERENTIAL AUTO Routine 09/13/2024 5:2 2 AM CDT LACTATE Routine 09/13/2024 5:22 AM CDT BASIC METABOLIC PANEL Routine 09/13/2024 5:22 AM CDT CBC WITH AUTO DIFFERENTIAL Routine 09/13/2024 5:22 AM CDT BLOOD CULTURE STAT 09/13/2024 5:22 AM CDT BLOOD CULTURE STAT 09/13/2024 3:[address] CHEST W CONTRAST ED 09/13/2024 1 2:22 AM CDT POCT HCG, URINE Routine 09/12/2024 11:17 PM CDT EGFR STAT 09/12/2024 10:16 PM CDT URINALYSIS, MICROSCOPIC ONLY STAT 09/12/2024 10:16 PM CDT DIFFERENTIAL AUTO STAT 09/12/2024 10: 16 PM CDT SEPSIS LACTATE WITH REFLEX STAT 09/12/2024 10:16 PM CDT COMPREHENSIVE METABOLIC PANEL STAT 09/12/2024 10:16 PM CDT CBC WITH AUTO DIFFERENTIAL STAT 09/12/2024 10:16 PM CDT URINE CULTURE STAT 09/12/2024 10:16 PM CDT URINALYSIS AND REFLEX TO MICROSCOPIC AND CULTURE STAT 09/12/2024 10:16 PM CDT from Last 3 Months Results * Lactate (09/13/2024 5:22 AM CDT) Lactate 0.7 0.7 - 2.0 mmol/L Blood 09/13/2024 5:22 AM CDT 09/13/2024 5:27 AM CDT us Tate Ellison MD LAB BLOOD ORDERABLES Final Re sult [facility] [address] [facility] Department [place] [address] * eGFR (09/13/2024 5:22 AM CDT) [facility] eGFR >90 >=60 mL/min/1. 73 m2 Comment: Interpretive Data Reference Interval Normal >/= 90 mL/min/1.73m2 Mildly decreased* 60 - 89 mL/min/1.73m2 Mildly to moderately decreased 45 - 59 mL/min/1.73m2 Moderately to severely decreased 30 - 44 mL/min/1.73m2 Severely decreased 15 - 29 mL/min/1.73m2 Kidney Failure < 15 mL/min/1.73m2 *Relative to young adult level Estimated glomerular filtration rate is determined by the 2020 CKD-EPI equation recommended by the National Kidney Foundation (A Unifying Approach to GFR Estimation: Recommendations of the NKF-ASK Task Force on Reassessing the Inclusion of Race in Diagnosing Kidney Disease, JASN 2020). The CKD-EPI equation should not be used for patients with unstable renal function and has not been validated in children and those over 70. Current interpretive data was last reviewed 2021. Blood 09/13/2024 5:22 AM CDT 09/13/2024 5:27 AM CDT us Tate Ellison MD LAB BLOOD ORDERABLES Final Re sult [facility] [address] [facility] Department [place] [address] * (ABNORMAL) Differential, auto (09/13/2024 5:22 AM CDT) [facility] Neutrophil abs 11.53(H) 1.50 - 6.50 K/cumm Imm gran abs 0.05 0.00 - 0.10 K/cumm [facility] Lymphocyte abs 1.03 0.80 - 3.30 K/cumm [facility] Monocyte abs 0.74 0.20 - 0.80 K/cumm [facility] Eosinophil abs 0.04 0.00 - 0.50 K/cumm [facility] Basophil abs 0.02 0.00 - 0.10 K/cumm [facility] Neutrophil pct 86.0 % [facility] Comment: Interpretive Data Percent cell count reference ranges are not reported, since discordance with absolute values may lead to misinterpretation of CBC data. Current Interpretive Data was last revised on 2017. Imm gran pct 0.4 % [facility] Comment: Interpretive Data Percent cell count reference ranges are not reported, since discordance with absolute values may lead to misinterpretation of CBC data. Current Interpretive Data was last revised on 2017. Lymphocyte pct 7.7 % [facility] Comment: Interpretive Data Percent cell count reference ranges are not reported, since discordance with absolute values may lead to misinterpretation of CBC data. Current Interpretive Data was last revised on 2017. Monocyte pct 5.5 % [facility] Comment: Interpretive Data Percent cell count reference ranges are not reported, since discordance with absolute values may lead to misinterpretation of CBC data. Current Interpretive Data was last revised on 2017. Eosinophil pct 0.3 % [facility] Comment: Interpretive Data Percent cell count reference ranges are not reported, since discordance with absolute values may lead to misinterpretation of CBC data. Current Interpretive Data was last revised on 2017. Basophil pct 0.1 % [facility] Comment: Interpretive Data Percent cell count reference ranges are not reported, since discordance with absolute values may lead to misinterpretation of CBC data. Current Interpretive Data was last revised on 2017. Blood 09/13/2024 5:22 AM CDT 09/13/2024 5:27 AM CDT us Tate Ellison MD LAB BLOOD ORDERABLES Final Re sult [facility] [address] [facility] Department [place] [address] * (ABNORMAL) CBC with auto differential (09/13/2024 5:22 AM CDT) WBC 13.41(H) 3.80 - 9.90 K/cumm Hgb 13.0 11.9 - 15.5 g/dL [facility] Hct 38.9 35.6 - 45.5 % [facility] Plt 169 150 - 400 K/cumm [facility] MPV 9.7 9.1 - 12.3 fL [facility] RBC 4.40 3.90 - 5.20 M/cumm [facility] MCV 88.4 81.3 - 96.4 fL [facility] MCH 29.5 27.1 - 33.3 pg [facility] MCHC 33.4 32.3 - 35.7 g/dL [facility] RDW CV 13.2 11.1 - 14.9 % [facility] RDW SD 42.7 35.7 - 48.1 fL [facility] NRBC abs 0.00 0.00 - 0.01 K/cumm [facility] Blood 09/13/2024 5:22 AM CDT 09/13/2024 5:27 AM CDT Tate Ellison MD LAB BLOOD ORDERABLES Final Re sult [facility] [address] [facility] Department [place] [address] * Blood culture Blood (09/13/2024 5:22 AM CDT) Report Final Report: No growth Comment:Testing performed by : [facility], [address] [place]., [address] Blood 09/13/2024 5:22 AM CDT 09/13/2024 9:09 AM CDT Narrative [facility] - 09/17/2024 12:00 PM CDT Collection->Peripheral 1. Blood cultures are incubated for 4 days on a continuously monitored blood culture system. The first report of a negative culture is issued within 24 hours of receipt of the specimen in the laboratory. 2. Positive culture results are reported as soon as they are detected. 3. The most important factor for detection of microbes in the setting of bloodstream infection is the volume of blood submitted for culture. Failure to collect an optimal blood volume can result in false negative blood cultures. 4. For pediatric patients, the recommended blood volume to collect follows a weight based strategy. See the electronic test catalog for collection instructions. 5. For positive blood cultures, a rapid molecular test may be performed for organism identification using the flori ePlex blood culture identification panel for gram positive (BCID-GP) and gram negative (BCID-GN) organisms. This nucleic acid amplification test detects microbial DNA in positive blood culture broth. This assay has been cleared by the [place] Food and Drug Administration and its performance characteristics have been verified by the [facility] Microbiology Laboratory. For questions about this culture, contact the Microbiology Laboratory at [phone]. Interpretive data was last revised on 24. Tate Ellison MD LAB MICROBIOLOGY - GENERAL OR DERABLES Final Result [facility] [address] [facility] Department [place] [address] * (ABNORMAL) Basic metabolic panel (09/13/2024 5:22 AM CDT) Sodium 134(L) 135 - 145 mmol/L Potassium, pl 3.8 3.3 - 4.9 mmol/L [facility] Chloride 102 97 - 110 mmol/L [facility] CO2 21(L) 22 - 32 mmol/L [facility] Anion gap 11 2 - 15 mmol/L [facility] BUN 11 6 - 25 mg/dL [facility] Creatinine 0.80 0.60 - 1.10 mg/dL [facility] Glucose 92 70 - 199 mg/dL [facility] Comment: Interpretive Data Fasting glucose >/= 126 mg/dl is diagnostic for diabetes. Fasting is defined as no caloric intake for at least 8 hours. Fasting glucose between 100 mg/dl to 125 mg/dl is diagnostic of prediabetes. In a patient with classic symptoms of hyperglycemia or hyperglycemic crisis, a random glucose >/= 200 mg/dl is diagnostic for diabetes. In the absence of unequivocal hyperglycemia, results should be confirmed by repeat testing. The classification and Diagnosis of Diabetes Diabetes Care 2021; 46: S19-S40. Current interpretive data was last revised 2022. Calcium 8.8 8.5 - 10.3 mg/dL [facility] Blood 09/13/2024 5:22 AM CDT 09/13/2024 5:27 AM CDT Tate Ellison MD LAB BLOOD ORDERABLES Final Re sult Performing Organization Address [facility]/ZIP Co de Phone Number MICHELLE REEVES [address] [facility] [place] [address] * Blood culture Blood (09/13/2024 3:14 AM CDT) Report Final Report: No growth Comment:Testing performed by : [facility], [address] [facility] [place]., [address] Blood 09/13/2024 3:14 AM CDT 09/13/2024 7:30 AM CDT Narrative MICHELLE - 09/17/2024 12:00 PM CDT Collection->Peripheral 1. Blood cultures are incubated for 4 days on a continuously monitored blood culture system. The first report of a negative culture is issued within 24 hours of receipt of the specimen in the laboratory. 2. Positive culture results are reported as soon as they are detected. 3. The most important factor for detection of microbes in the setting of bloodstream infection is the volume of blood submitted for culture. Failure to collect an optimal blood volume can result in false negative blood cultures. 4. For pediatric patients, the recommended blood volume to collect follows a weight based strategy. See the electronic test catalog for collection instructions. 5. For positive blood cultures, a rapid molecular test may be performed for organism identification using the flori ePlex blood culture identification panel for gram positive (BCID-GP) and gram negative (BCID-GN) organisms. This nucleic acid amplification test detects microbial DNA in positive blood culture broth. This assay has been cleared by the [place] Food and Drug Administration and its performance characteristics have been verified by the [facility]biology Laboratory. For questions about this culture, contact the Microbiology Laboratory at [phone]. Interpretive data was last revised on 24. Marlo Lomas Jr., MD LAB MICROBIOLOGY - GENE RAL ORDERABLES Final Result Performing Organization Address City/[facility]/ZIP Co de Phone Number MICHELLE [address] [facility] [place] [place] [address] * CT Chest W Contrast (09/13/2024 12:22 AM CDT) Anatomical Region Laterality Modality Body N/A Computed Tomogra phy 09/13/2024 12:5 0 AM CDT Narrative 09/13/2024 12:55 AM CDT EXAM DESCRIPTION: CT CHEST W CONTRAST REASON FOR STUDY: Right breast pain, fever, leukocytosis; recent breast augmentation with postop infection Pt to ED with c/o right breast pain. Reports she has had two breast augmentation surgeries with implants with the last one on 08/29 and they replaced the implant and washed it out because I had an infection. Pt reports yesterday she started to get fever, chills and breast pain. Reports fever of 103 of ibuprofen around 1630. Pt had surgery at [facility]. TECHNIQUE: CT scan of the chest performed with intravenous contrast using helical scanning technique with dynamic intravenous contrast injection. Reconstructed coronal and sagittal MPR images reviewed. All images stored on PACS. Automated exposure control was used as a dose optimization technique for this examination. CONTRAST TYPE/DOSE: 100mL of IOVERSOL 350 MG IODINE/ML INTRAVENOUS SYRINGE injected via intravenous COMPARISON: None FINDINGS: LUNGS: No nodules or masses. No pneumonia. PLEURA: No effusion. No pneumothorax. MEDIASTINUM/SHELBIE: No identified masses or abnormal nodes. HEART: Heart size is normal with no pericardial effusion. VASCULATURE: No thoracic aortic aneurysm. AXILLA: No adenopathy. CHEST WALL: Bilateral augmentation mammoplasty. There is a fluid collection along the posterior superior and medial aspect of the right implant, interposed between the implant and the pectoralis muscles measuring approximately 3 cm x 4 cm. No gas is seen within the collection. It probably represents postoperative hematoma or seroma. Correlate clinically to exclude infection. There is some stranding in the fat of the right breast as well as skin thickening which could reflect cellulitis. HARDWARE/LINES/TUBES: None. UPPER ABDOMEN: No significant abnormality. MUSCULOSKELETAL: No significant abnormality. OTHER: No other significant abnormality. IMPRESSION: Bilateral augmentation mammoplasty. There is a fluid collection along the posterior superior and medial aspect of the right implant, interposed between the implant and the pectoralis muscles measuring approximately 3 cm x 4 cm. No gas is seen within the collection. It probably represents postoperative hematoma or seroma. Correlate clinically to exclude infection. There is some stranding in the fat of the right breast as well as skin thickening which could reflect cellulitis. THIS IS AN ELECTRONICALLY VERIFIED FINAL REPORT 09/13/2024 12:55 AM - Electronically signed by Ajay Johnson M.D. KT T: Report ID: [id number] Reading Location: [place] [address] Procedure Note Ajay Johnson MD - 09/13/2024 EXAM DESCRIPTION: CT CHEST W CONTRAST REASON FOR STUDY: Right breast pain, fever, leukocytosis; recent breast augmentation with postop infection Pt to ED with c/o right breast pain. Reports she has had two breast augmentation surgeries with implants with the last one on 08/29 and they replaced the implant and washed it out because I had an infection. Ptreports yesterday she started to get fever, chills and breast pain. Reportsfever of 103 of ibuprofen around 1630. Pt had surgery at [facility]. TECHNIQUE: CT scan of the chest performed with intravenous contrast using helical scanning technique with dynamic intravenous contrast injection. Reconstructed coronal and sagittal MPR images reviewed. All images storedon PACS. Automated exposure control was used as a dose optimizationtechnique for this examination. CONTRAST TYPE/DOSE: 100mL of IOVERSOL 350 MG IODINE/ML INTRAVENOUS SYRINGE injected via intravenous COMPARISON: None FINDINGS: LUNGS: No nodules or masses. No pneumonia. PLEURA: No effusion. No pneumothorax. MEDIASTINUM/SHELBIE: No identified masses or abnormal nodes. HEART: Heart size is normal with no pericardial effusion. VASCULATURE: No thoracic aortic aneurysm. AXILLA: No adenopathy. CHEST WALL: Bilateral augmentation mammoplasty. There is a fluidcollection along the posterior superior and medial aspect of the right implant, interposed between the implant and the pectoralis muscles measuring approximately 3 cm x 4 cm. No gas is seen within the collection. Itprobably represents postoperative hematoma or seroma. Correlate clinically toexclude infection. There is some stranding in the fat of the right breast as wellas skin thickening which could reflect cellulitis. HARDWARE/LINES/TUBES: None. UPPER ABDOMEN: No significant abnormality. MUSCULOSKELETAL: No significant abnormality. OTHER: No other significant abnormality. IMPRESSION: Bilateral augmentation mammoplasty. There is a fluid collection along the posterior superior and medial aspect of the right implant, interposedbetween the implant and the pectoralis muscles measuring approximately 3 cm x 4cm. No gas is seen within the collection. It probably represents postoperative hematoma or seroma. Correlate clinically to exclude infection. There is some stranding in the fat of the right breast as well as skin thickening which could reflect cellulitis. THIS IS AN ELECTRONICALLY VERIFIED FINAL REPORT 09/13/2024 12:55 AM - Electronically signed by Ajay Johnson M.D. KT T: Report ID: [id number] Reading Location: [place] [address] [address] PROCEDURES Final Resu lt * POCT hCG, urine (09/12/2024 11:17 PM CDT) [facility] HCG, ur, POC Negative Negative Lot Number [id number] QC Backgroud Clear Acceptable QC Control Line Acceptable Urine 09/12/2024 11:1 7 PM CDT Marlo Lomas Jr., MD POINT OF CARE TEST ORDE RABLES Final Result * (ABNORMAL) Sepsis Lactate w/ Reflex (09/12/2024 10:16 PM CDT) [facility] Sepsis Lactate 0.6(L) 0.7 - 2.0 mmol/L Blood 09/12/2024 10:1 6 PM CDT 09/12/2024 10:19 PM CDT Marlo Lomas Jr., MD LAB BLOOD ORDERABLES Fi nal Result [facility] [address] [facility] Department [place] [address] * eGFR (09/12/2024 10:16 PM CDT) [facility] eGFR >90 >=60 mL/min/1. 73 m2 Comment: Interpretive Data Reference Interval Normal >/= 90 mL/min/1.73m2 Mildly decreased* 60 - 89 mL/min/1.73m2 Mildly to moderately decreased 45 - 59 mL/min/1.73m2 Moderately to severely decreased 30 - 44 mL/min/1.73m2 Severely decreased 15 - 29 mL/min/1.73m2 Kidney Failure < 15 mL/min/1.73m2 *Relative to young adult level Estimated glomerular filtration rate is determined by the 2020 CKD-EPI equation recommended by the National Kidney Foundation (A Unifying Approach to GFR Estimation: Recommendations of the NKF-ASK Task Force on Reassessing the Inclusion of Race in Diagnosing Kidney Disease, JASN 2020). The CKD-EPI equation should not be used for patients with unstable renal function and has not been validated in children and those over 70. Current interpretive data was last reviewed 2021. Blood 09/12/2024 10:1 6 PM CDT 09/12/2024 10:19 PM CDT Marlo Lomas Jr., MD LAB BLOOD ORDERABLES nal Result [place] [id number] [facility] Department of Laboratories [place], [place] [id number] * (ABNORMAL) Differential, auto (09/12/2024 10:16 PM CDT) Neutrophil abs 16.05(H) 1.50 - 6.50 K/cumm Imm gran abs 0.08 0.00 - 0.10 K/cumm [facility] Lymphocyte abs 1.73 0.80 - 3.30 K/cumm [facility] Monocyte abs 1.03(H) 0.20 - 0.80 K/cumm [facility] Eosinophil abs 0.04 0.00 - 0.50 K/cumm [facility] Basophil abs 0.04 0.00 - 0.10 K/cumm [facility] Neutrophil pct 84.7 % [facility] Comment: Interpretive Data Percent cell count reference ranges are not reported, since discordance with absolute values may lead to misinterpretation of CBC data. Current Interpretive Data was last revised on 2017. Imm gran pct 0.4 % [facility] Comment: Interpretive Data Percent cell count reference ranges are not reported, since discordance with absolute values may lead to misinterpretation of CBC data. Current Interpretive Data was last revised on 2017. Lymphocyte pct 9.1 % [facility] Comment: Interpretive Data Percent cell count reference ranges are not reported, since discordance with absolute values may lead to misinterpretation of CBC data. Current Interpretive Data was last revised on 2017. Monocyte pct 5.4 % [facility] Comment: Interpretive Data Percent cell count reference ranges are not reported, since discordance with absolute values may lead to misinterpretation of CBC data. Current Interpretive Data was last revised on 2017. Eosinophil pct 0.2 % [facility] Comment: Interpretive Data Percent cell count reference ranges are not reported, since discordance with absolute values may lead to misinterpretation of CBC data. Current Interpretive Data was last revised on 2017. Basophil pct 0.2 % [facility] Comment: Interpretive Data Percent cell count reference ranges are not reported, since discordance with absolute values may lead to misinterpretation of CBC data. Current Interpretive Data was last revised on 2017. Blood 09/12/2024 10:1 6 PM CDT 09/12/2024 10:19 PM CDT Marlo Lomas Jr., MD LAB BLOOD ORDERABLES Fi nal Result [facility] [address] [facility] Department [place] [address] * (ABNORMAL) Urinalysis reflex to microscopic and culture Urine (09/12/2024 10:16 PM CDT) Color, ur Straw Yellow Clarity, ur Cloudy(A) Clear [facility] Specific gravity, ur 1.008 1.003 - 1.030 [facility] pH, urine 5.5 [facility] Comment: Interpretive Data U rine pH is affected by diet, medications, systemic acid-base disturbances, and renal tubular function. pH may affect urinary stone formation. For example, urine pH below 6.0 may help reduce the tendency for calcium phosphate stones and pH greater than 6.0 may reduce the tendency for uric acid stone formation. Source: [facility] Current Interpretive Data was last revised on 2017 Protein, ur ql Negative Negative [facility] Glucose, ur ql Negative Negative [facility] Ketones, ur Trace Negative [facility] Bilirubin, ur Negative Negative [facility] Blood, ur 3+(A) Negative [facility] Urobilinogen, ur <2.0 <2.0 mg/dL [facility] Nitrite, ur Negative Negative [facility] Leukocyte esterase, ur 2+(A) Negative [facility] UA reflex comment Reflex to microscopic UA will be performed. [facility] Urine 09/12/2024 10:1 6 PM CDT 09/12/2024 10:19 PM CDT Narrative [facility] - 09/12/2024 10:22 PM CDT If patient unable to urinate, straight cath us Marlo Lomas Jr., MD LAB MICROBIOLOGY - GENE RAL ORDERABLES Final Result [facility] [address] [facility] Department [place] [address] * (ABNORMAL) CBC with auto differential (09/12/2024 10:16 PM CDT) WBC 18.97(H) 3.80 - 9.90 K/cumm Hgb 13.1 11.9 - 15.5 g/dL [facility] Hct 39.0 35.6 - 45.5 % [facility] Plt 184 150 - 400 K/cumm [facility] MPV 9.9 9.1 - 12.3 fL [facility] RBC 4.50 3.90 - 5.20 M/cumm [facility] MCV 86.7 81.3 - 96.4 fL [facility] MCH 29.1 27.1 - 33.3 pg [facility] MCHC 33.6 32.3 - 35.7 g/dL [facility] RDW CV 13.2 11.1 - 14.9 % [facility] RDW SD 41.1 35.7 - 48.1 fL [facility] NRBC abs 0.00 0.00 - 0.01 K/cumm [facility] Blood 09/12/2024 10:1 6 PM CDT 09/12/2024 10:19 PM CDT Marlo Lomas Jr., MD LAB BLOOD ORDERABLES Fi nal Result Performing Organization Address [facility] de Phone Number MICHELLE [address] [address] * (ABNORMAL) Urinalysis, microscopic only (09/12/2024 10:16 PM CDT) WBC, ur 11-20(A) 0 - 5 /HPF RBC, ur 3-5(A) 0 - 2 /HPF [facility] Epithelial cells, squamous, ur 11-20(A) 0 - 5 /HPF [facility] Comment:Suggestive of contam ination. Consider recollection by clean catch. Bacteria, ur Trace(A) [facility] Culture Reflex Comment Reflex to urine culture will be performed. [facility] Urine 09/12/2024 10:1 6 PM CDT 09/12/2024 10:19 PM CDT Marlo Lomas Jr., MD LAB URINE ORDERABLES Fi nal Result Performing Organization Address [facility] de Phone Number LAL[address] [address] * Urine culture Urine (09/12/2024 10:16 PM CDT) Report Final Report: Growth indicative of contamination with periurethral thomas. Please submit a new specimen with special attention given to the collection process and to prompt transport to the laboratory. Comment:Testing performed by : [facility], [address] [facility], [place]., [address] Organism GROWTH INDICATES CONTAM WITH PERIURETHRAL THOMAS. [facility] Urine 09/12/2024 10:1 6 PM CDT 09/13/2024 5:11 AM CDT Narrative [facility] - 09/14/2024 10:43 AM CDT Urine culture reflexed based upon urinalysis results. Testing performed by [facility] ([phone]) Ajay Wallace LAB MICROBIOLOGY - GENERAL ORDERABLES Final Result [place] [address] [facility] Department [place] [address] * (ABNORMAL) Comprehensive metabolic panel (09/12/2024 10:16 PM CDT) Sodium 133(L) 135 - 145 mmol/L Potassium, pl 3.7 3.3 - 4.9 mmol/L [facility] Comment:Hemolyzed; Potassium value may be falsely elevated by as much as 1.0 mmol/L. Suggest redraw and reanalysis. Chloride 102 97 - 110 mmol/L [facility] CO2 20(L) 22 - 32 mmol/L [facility] Anion gap 11 2 - 15 mmol/L [facility] BUN 13 6 - 25 mg/dL [facility] Creatinine 0.83 0.60 - 1.10 mg/dL [facility] Glucose 91 70 - 199 mg/dL [facility] Comment: Interpretive Data Fasting glucose >/= 126 mg/dl is diagnostic for diabetes. Fasting is defined as no caloric intake for at least 8 hours. Fasting glucose between 100 mg/dl to 125 mg/dl is diagnostic of prediabetes. In a patient with classic symptoms of hyperglycemia or hyperglycemic crisis, a random glucose >/= 200 mg/dl is diagnostic for diabetes. In the absence of unequivocal hyperglycemia, results should be confirmed by repeat testing. The classification and Diagnosis of Diabetes Diabetes Care 202; 46: S19-S40. Current interpretive data was last revised 2022. Calcium 8.7 8.5 - 10.3 mg/dL [facility] Bilirubin, total 0.7 0.1 - 1.2 mg/dL [facility] Protein, pl 6.9 6.5 - 8.5 g/dL [facility] Albumin 3.6 3.5 - 5.0 g/dL [facility] Alk phos 55 40 - 130 Units/L [facility] ALT 18 7 - 45 Units/L [facility] AST 17 10 - 45 Units/L [facility] Blood 09/12/2024 10:1 6 PM CDT 09/12/2024 10:19 PM CDT us Marlo Lomas Jr., MD LAB BLOOD ORDERABLES [facility] Result [facility] [address] [facility] Department [place] [address] from Last 3 Months Insurance [facility] CHOICE [employer]US [facility] [facility] HMO/PPO Address: [facility] [address] [address] [place] [address] [place] [address] Care Teams Content Coordinator Relationship Specialty Start Date End Date Marbin Marc MD [address] [place] [address] PCP - General Obstetrics and Gynecology 06/11/20
--- OUTSIDE RECORDS SUMMARY | 2024-09-28 01:23 | XMS_ITS | Referral Summary ---
Author Organization [facility] Address [address] [place] [address] Care Team Providers Care Nephrology Social Worker Name Role Phone Marbin Marc MD Primary Care Provider [phone] Encounters Date Type Department Care Team Description 09/17/2024 Patient Self-Triage [facility] [address] [place] [id number] Mychart, Generic Provider 09/13/2024 12:26 AM CDT - 09/13/2024 2:41 PM CDT Hospital Encounter [address] [address] Marlo Lomas Jr., MD Patel, Satyen V., MD Smith, Thomas Hamilton, MD Fever, unspecified fever cause (Primary Dx); Cellulitis of right breast; Infection of superficial incisional surgical site after procedure, initial encounter; Cellulitis of breast Discharge Disposition: Discharge to home or self care from Last 3 Months Allergies Active Allergy Reactions Criticality Noted Date [...] placed on wait list for transfer to [facility]. Pending bed availability and notification of hospitalist service at [facility] and/or patient's general surgeon and [facility]. Pain management p.r.n. Lipid screening 06/18/2020 Chest pain 06/17/2020 Palpitations 06/17/2020 Dizziness 06/17/2020 11 weeks gestation of 06/17/2020 HENSON (dyspnea on exertion) 06/17/2020 Crohn's disease of colon 08/28/2008 Immunizations Immunization Administration Dates Next Due H1N1 Inj 03/10/2009 Social History Tobacco Use Types Packs/Day Years Used Date Smoking Tobacco: Never Smokeless Tobacco: Never [facility] Utilities Answer Date Recorded In the past 12 months has [employer], gas, oil, or water [employer] threatened to shut off services in your [...] often do you attend chur ch or religion services? Never 09/13/2024 Do you belong to any clubs o r organizations such as congregational groups, unions, fraternal or athletic groups, or [...] any time in the past 12 m [facility], were you homeless or living in a senior care (including now)? No 09/13/2024 Personal Safety Answer Date Recorded Have you ever been in or are you currently in a harmful physical or emotional relationship or is someone making you feel afraid or unsafe? Denies 09/12/2024 Comments Unknown Sex and Gender Information Value Date Recorded Sex Assigned at Not on file Legal Sex Female 2:21 AM [employer] Gender Identity Not on file Sexual Orientation [...] 09/13/2024 4:07 AM CDT Plan of Treatment Not on file Medical Devices Implanted Type Area Processing Tech Device Identifier Shelf Expiration Date Model / Serial / Lot Breast-08/30/19 Implanted:08/16 (Quantity not on file) Breast Bilateral: [...] LAB BLOOD ORDERABLES Final Re sult MICHELLE [facility] [place] [address] * eGFR (09/13/2024 5:22 AM CDT) eGFR >90 >=60 mL/min/1. 73 m2 Comment: [...] of Race in Diagnosing Kidney Disease, JASN 202). The CKD-EPI equation should not be used for patients with unstable renal function and has not been validated in children and those over 70. Current interpretive data was last reviewed 2021. Blood 09/13/2024 5:22 AM CDT 09/13/2024 5:27 AM CDT Tate Ellison MD LAB BLOOD ORDERABLES Final Re sult MICHELLE [address] [facility] [place] [address] * (ABNORMAL) Differential, auto (09/13/2024 5:22 AM CDT) Neutrophil abs 11.53(H) 1.50 - 6.50 K/cumm Imm gran abs 0.05 0.00 - 0.10 K/cumm [facility] Lymphocyte abs 1.03 0.80 - 3.30 K/cumm [facility] Monocyte abs 0.74 0.20 - 0.80 K/cumm [facility] Eosinophil abs 0.04 0.00 - 0.50 K/cumm [facility] Basophil abs 0.02 0.00 - 0.10 K/cumm [facility] Neutrophil pct 86.0 % [facility] Comment: Interpretive Data Percent cell count reference ranges are not reported, since discordance with absolute values may lead to misinterpretation of CBC data. Current Interpretive Data was last revised on 2017. Imm gran pct 0.4 % [facility] Comment: Interpretive Data Percent cell count reference ranges are not reported, since discordance with absolute values may lead to misinterpretation of CBC data. Current Interpretive Data was last revised on 2017. Lymphocyte pct 7.7 % [facility] Comment: Interpretive Data Percent cell count reference ranges are not reported, since discordance with absolute values may lead to misinterpretation of CBC data. Current Interpretive Data was last revised on 2017. Monocyte pct 5.5 % [facility] Comment: Interpretive Data Percent cell count reference ranges are not reported, since discordance with absolute values may lead to misinterpretation of CBC data. Current Interpretive Data was last revised on 2017. Eosinophil pct 0.3 % [facility] Comment: Interpretive Data Percent cell count reference ranges are not reported, since discordance with absolute values may lead to misinterpretation of CBC data. Current Interpretive Data was last revised on 2017. Basophil pct 0.1 % [facility] Comment: Interpretive Data Percent cell count reference ranges are not reported, since discordance with absolute values may lead to misinterpretation of CBC data. Current Interpretive Data was last revised on 2017. Blood 09/13/2024 5:22 AM CDT 09/13/2024 5:27 AM CDT Tate Ellison MD LAB BLOOD ORDERABLES Final Re sult MICHELLE REEVES [address] [place] [address] [place] [address] * (ABNORMAL) CBC with auto differential (09/13/2024 5:22 AM CDT) WBC 13.41(H) 3.80 - 9.90 K/cumm Hgb 13.0 11.9 - 15.5 g/dL [facility] Hct 38.9 35.6 - 45.5 % [facility] Plt 169 150 - 400 K/cumm [facility] MPV 9.7 9.1 - 12.3 fL [facility] RBC 4.40 3.90 - 5.20 M/cumm [facility] MCV 88.4 81.3 - 96.4 fL [facility] MCH 29.5 27.1 - 33.3 pg [facility] MCHC 33.4 32.3 - 35.7 g/dL [facility] RDW CV 13.2 11.1 - 14.9 % [facility] RDW SD 42.7 35.7 - 48.1 fL [facility] NRBC abs 0.00 0.00 - 0.01 K/cumm [facility] Blood 09/13/2024 5:22 AM CDT 09/13/2024 5:27 AM CDT Tate Ellison MD LAB BLOOD ORDERABLES Final Re sult Performing Organization Address City/[facility]/ZIP Co de Phone Number MICHELLE REEVES [address] [facility] [place] [address] * Blood culture Blood (09/13/2024 5:22 AM CDT) Report Final Report: No growth Comment:Testing performed by : [facility], [address] [facility], [place]., [address] Blood 09/13/2024 5:22 AM CDT 09/13/2024 9:09 AM CDT Narrative [facility] - 09/17/2024 12:00 PM CDT Collection->Peripheral 1. [...] performance characteristics have been verified by the [facility] Microbiology Laboratory. For questions about this culture, contact the Microbiology Laboratory at [phone]. Interpretive data was last revised on 24. Tate Ellison MD LAB MICROBIOLOGY - GENERAL OR DERABLES Final Result MICHELLE [address] [facility] Department [place] [address] * (ABNORMAL) Basic metabolic panel (09/13/2024 5:22 AM CDT) Sodium 134(L) 135 - 145 mmol/L Potassium, pl 3.8 3.3 - 4.9 mmol/L [facility] Chloride 102 97 - 110 mmol/L [facility] CO2 21(L) 22 - 32 mmol/L [facility] Anion gap 11 2 - 15 mmol/L [facility] BUN 11 6 - 25 mg/dL [facility] Creatinine 0.80 0.60 - 1.10 mg/dL MICHELLE Glucose 92 70 - 199 mg/dL [facility] Comment: Interpretive Data Fasting glucose >/= 126 [...] 2022. Calcium 8.8 8.5 - 10.3 mg/dL MICHELLE Blood 09/13/2024 5:22 AM CDT 09/13/2024 5:27 AM CDT Tate Ellison MD LAB BLOOD ORDERABLES Final Re sult [facility] [address] [facility] Department [place] [address] * Blood culture Blood (09/13/2024 3:14 AM CDT) Report Final Report: No growth Comment:Testing performed by : [facility], [address] [facility] [place]., [address] Blood 09/13/2024 3:14 AM CDT 09/13/2024 7:30 [...] performance characteristics have been verified by the [facility] Microbiology Laboratory. For questions about this culture, contact the Microbiology Laboratory at [phone]. Interpretive data was last revised on 24. us Marlo Lomas Jr., MD LAB MICROBIOLOGY - GENE RAL ORDERABLES Final Result MICHELLE [address] [facility] Department [place] [address] * CT Chest W Contrast (09/13/2024 12:22 [...] ibuprofen around 1630. Pt had surgery at [facility]. TECHNIQUE: CT scan of the chest performed [...] Ajay Johnson M.D. KT T: Report ID: [id number] Reading Location: [id number] Procedure Note Ajay Johnson MD - 09/13/2024 [...] ibuprofen around 1630. Pt had surgery at [facility]. TECHNIQUE: CT scan of the chest performed [...] Ajay Johnson M.D. KT T: Report ID: [id number] Reading Location: [place] [address] [address] PROCEDURES Final Resu lt * POCT hCG, urine (09/12/2024 11:17 PM CDT) HCG, ur, POC Negative Negative Lot Number [id number] QC Backgroud Clear Acceptable QC Control Line Acceptable Urine 09/12/2024 11:1 7 PM CDT Marlo Lomas Jr., MD POINT OF CARE TEST [place] Final Result * (ABNORMAL) Sepsis Lactate w/ Reflex (09/12/2024 10:16 PM CDT) Sepsis Lactate 0.6(L) 0.7 - 2.0 mmol/L Blood 09/12/2024 10:1 6 PM CDT 09/12/2024 10:19 PM CDT Marlo Lomas Jr., MD LAB BLOOD ORDERABLES Fi nal Result Performing Organization Address [facility] de Phone Number [address] [place] [address] * eGFR (09/12/2024 10:16 PM CDT) eGFR >90 >=60 mL/min/1. 73 m2 Comment: [...] ORDERABLES Fi nal Result Performing Organization Address [facility] Co de Phone Number [address] [address] * (ABNORMAL) Differential, auto (09/12/2024 10:16 PM CDT) Pathologist [facility] Neutrophil abs 16.05(H) 1.50 - 6.50 K/cumm Imm gran abs 0.08 0.00 - 0.10 K/cumm [facility] Lymphocyte abs 1.73 0.80 - 3.30 K/cumm [facility] Monocyte abs 1.03(H) 0.20 - 0.80 K/cumm [facility] Eosinophil abs 0.04 0.00 - 0.50 K/cumm [facility] Basophil abs 0.04 0.00 - 0.10 K/cumm [facility] Neutrophil pct 84.7 % [facility] Comment: Interpretive Data Percent cell count reference ranges are not reported, since discordance with absolute values may lead to misinterpretation of CBC data. Current Interpretive Data was last revised on 2017. Imm gran pct 0.4 % [facility] Comment: Interpretive Data Percent cell count reference ranges are not reported, since discordance with absolute values may lead to misinterpretation of CBC data. Current Interpretive Data was last revised on 2017. Lymphocyte pct 9.1 % [facility] Comment: Interpretive Data Percent cell count reference ranges are not reported, since discordance with absolute values may lead to misinterpretation of CBC data. Current Interpretive Data was last revised on 2017. Monocyte pct 5.4 % [facility] Comment: Interpretive Data Percent cell count reference ranges are not reported, since discordance with absolute values may lead to misinterpretation of CBC data. Current Interpretive Data was last revised on 2017. Eosinophil pct 0.2 % [facility] Comment: Interpretive Data Percent cell count reference ranges are not reported, since discordance with absolute values may lead to misinterpretation of CBC data. Current Interpretive Data was last revised on 2017. Basophil pct 0.2 % [facility] Comment: Interpretive Data Percent cell count reference ranges are not reported, since discordance with absolute values may lead to misinterpretation of CBC data. Current Interpretive Data was last revised on 2017. Blood 09/12/2024 10:1 6 PM CDT 09/12/2024 10:19 PM CDT us Marlo Lomas Jr., MD LAB BLOOD ORDERABLES Fi nal Result Performing Organization Address City/[facility]/ZIP Co de Phone Number MICHELLE REEVES [address] [place] [address] [place] [address] * (ABNORMAL) Urinalysis reflex to microscopic and culture Urine (09/12/2024 10:16 PM CDT) Color, ur Straw Yellow Clarity, ur Cloudy(A) Clear [facility] Specific gravity, ur 1.008 1.003 - 1.030 [facility] pH, urine 5.5 [facility] Comment: Interpretive Data U rine pH is affected by diet, medications, systemic acid-base disturbances, and renal tubular function. pH may affect urinary stone formation. For example, urine pH below 6.0 may help reduce the tendency for calcium phosphate stones and pH greater than 6.0 may reduce the tendency for uric acid stone formation. Source: [facility] Current Interpretive Data was last revised on 2017 Protein, ur ql Negative Negative [facility] Glucose, ur ql Negative Negative [facility] Ketones, ur Trace Negative [facility] Bilirubin, ur Negative Negative [facility] Blood, ur 3+(A) Negative [facility] Urobilinogen, ur <2.0 <2.0 mg/dL [facility] Nitrite, ur Negative Negative [facility] Leukocyte esterase, ur 2+(A) Negative [facility] UA reflex comment Reflex to microscopic UA will be performed. [facility] Urine 09/12/2024 10:1 6 PM CDT 09/12/2024 10:19 PM CDT Narrative [facility] - 09/12/2024 10:22 PM CDT If patient unable to urinate, straight cath Marlo Lomas Jr., MD LAB MICROBIOLOGY - GENE RAL ORDERABLES Final Result Performing Organization Address City/[facility]/ZIP Co de Phone Number MICHELLE REEVES [facility] [place] [address] * (ABNORMAL) CBC with auto differential (09/12/2024 10:16 PM CDT) WBC 18.97(H) 3.80 - 9.90 K/cumm Hgb 13.1 11.9 - 15.5 g/dL [facility] Hct 39.0 35.6 - 45.5 % [facility] Plt 184 150 - 400 K/cumm [facility] MPV 9.9 9.1 - 12.3 fL [facility] RBC 4.50 3.90 - 5.20 M/cumm [facility] MCV 86.7 81.3 - 96.4 fL [facility] MCH 29.1 27.1 - 33.3 pg [facility] MCHC 33.6 32.3 - 35.7 g/dL [facility] RDW CV 13.2 11.1 - 14.9 % [facility] RDW SD 41.1 35.7 - 48.1 fL [facility] NRBC abs 0.00 0.00 - 0.01 K/cumm [facility] Blood 09/12/2024 10:1 6 PM CDT 09/12/2024 10:19 PM CDT Marlo Lomas Jr., MD LAB BLOOD ORDERABLES Fi nal Result Performing Organization Address [facility] de Phone Number [address] [place] [address] * (ABNORMAL) Urinalysis, microscopic only (09/12/2024 10:16 PM CDT) WBC, ur 11-20(A) 0 - 5 /HPF RBC, ur 3-5(A) 0 - 2 /HPF [facility] Epithelial cells, squamous, ur 11-20(A) 0 - 5 /HPF [facility] Comment:Suggestive of contam ination. Consider recollection by clean catch. Bacteria, ur Trace(A) [facility] Culture Reflex Comment Reflex to urine culture will be performed. [facility] Urine 09/12/2024 10:1 6 PM CDT 09/12/2024 10:19 PM CDT Marlo Lomas Jr., MD LAB URINE ORDERABLES Fi nal Result Performing Organization Address [facility] de Phone Number [facility] [address] [place] [address] * Urine culture Urine (09/12/2024 10:16 PM CDT) Pathologist [facility] Report Final Report: Growth indicative of contamination with periurethral thomas. Please submit a new specimen with special attention given to the collection process and to prompt transport to the laboratory. Comment:Testing performed by : [facility], [address] [place]., [address] Organism GROWTH INDICATES CONTAM WITH PERIURETHRAL THOMAS. [facility] Urine 09/12/2024 10:1 6 PM CDT 09/13/2024 5:11 AM CDT Narrative [facility] - 09/14/2024 10:43 AM CDT Urine culture reflexed based upon urinalysis results. Testing performed by [facility] Microbiology Laboratory ([phone]) Ajay Wallace DO LAB MICROBIOLOGY - GENERAL ORDERABLES Final Result [address] [place] [address] * (ABNORMAL) Comprehensive metabolic panel (09/12/2024 10:16 PM CDT) Pathologist [facility] Sodium 133(L) 135 - 145 mmol/L Potassium, pl 3.7 3.3 - 4.9 mmol/L [facility] Comment:Hemolyzed; Potassium value may be falsely elevated by as much as 1.0 mmol/L. Suggest redraw and reanalysis. Chloride 102 97 - 110 mmol/L [facility] CO2 20(L) 22 - 32 mmol/L [facility] Anion gap 11 2 - 15 mmol/L [facility] BUN 13 6 - 25 mg/dL [facility] Creatinine 0.83 0.60 - 1.10 mg/dL [facility] Glucose 91 70 - 199 mg/dL [facility] Comment: Interpretive Data Fasting glucose >/= 126 [...] 2022. Calcium 8.7 8.5 - 10.3 mg/dL [facility] Bilirubin, total 0.7 0.1 - 1.2 mg/dL [facility] Protein, pl 6.9 6.5 - 8.5 g/dL [facility] Albumin 3.6 3.5 - 5.0 g/dL [facility] Alk phos 55 40 - 130 Units/L [facility] ALT 18 7 - 45 Units/L [facility] AST 17 10 - 45 Units/L [facility] Blood 09/12/2024 10:1 6 PM CDT 09/12/2024 10:19 PM CDT Marlo Lomas Jr., MD LAB BLOOD ORDERABLES nal Result MICHELLE [address] [facility] [place] [address] from Last 3 Months Insurance [facility] CHOICE PLUS [id number] [place] [address] 9 [facility] HMO/PPO Address: [address] [place] [address] Care Teams Nephrology Social Worker Relationship Specialty Start Date End Date Marbin Marc MD [address] [place] [address] PCP - General Obstetrics and Gynecology 06/11/20
--- OUTSIDE RECORDS SUMMARY | 2024-09-28 01:23 | XMS_ITS | Data Portability ---
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 Lab test, urine 2023 [facility], [address], [place], [address], 4 09:45:37 TSH, serum or plasma 2023 [facility] (Lab), [address], [place], [address], 4 01:19:47 prolactin, serum 2023 024 Health system (Lab), [address], [place], [address], 4 01:19:46 FSH (follicle-s timulating hormone), serum 2023 024 Health system (Lab), [address] [facility], [place], [address], 4 01:19:47 estradiol, serum 2023 024 Health system (Lab), [address] [facility], [place], [address], 4 01:19:45 testosteron e free/testos terone total, ratio, serum 2023 024 Health system (Lab), [address] [facility], [place], [address], 4 01:19:48 lh (luteinizin g hormone), serum 2023 024 Health system (Lab), [address], [place], [address], 4 01:19:46 HbA1c (hemoglobin A1c), blood 2023 024 Health system (Lab), [address] [place], [address], 4 01:19:47 Referral None recorded. Procedures None recorded. Surgeries None recorded. Imaging None recorded. Medication Orders Slynd 4 mg (28) tablet 2023 024 [id number], [address], [place], [address], 4 11:00:57 Diflucan 100 mg tablet 2021 022 [email or web address] [id number], [address] [place], [place], [id number], 3 09:41:09 Patient TargetsNo targets recorded. Patient [...] or kits canno t be used [facility] . Femal e Estra diol Range s: Folli cular phase 12.4- 233 pg/mL Ovula tion phase 41.0- 398 pg/mL Lutea l phase 22.3- 341 pg/mL Postm enopa usal< 5-138 pg/mL Healt hy Pregn ant Women 1st Trime ster1 54-32 43 pg/mL 2nd Trime ster1 561-2 1280 pg/mL 3rd Trime ster8 525-> 57223 pg/mL Not Available [facility] (Lab) [address] [facility], [place], [address], 06/14/2023 01:19:45 06/09/19 24 06/09/2023 PROLA CTIN prolactin, total 15.30 NG/mL 4.79-2 3.30 This assay was perfo rmed using [employer] ratio n reage nts and test kits. Value s obtai kaelyn with other assay metho ds or kits canno t be used [facility] . Not Available [facility] (Lab) [address], [place], [address], 06/14/2023 01:19:46 06/09/19 24 06/09/2023 LH (LUTE NIZIN G HORMO NE) LH 16.2 mIU/m L This assay was perfo rmed using [employer] reage nts and test kits. Value s obtai kaelyn with other assay metho ds or kits canno t be used [facility] . Femal es Mid-F ollic ular: 2.4-1 2.6 mIU/m L Mid-C ycle: 14.0- 95.6 mIU/m L Mid-L uteal : 1.0-1 1.4 mIU/m L Postm enopa use: 7.7-5 8.5 mIU/m L Not Available [facility] (Lab) [address], [place], [address], 06/14/2023 01:19:46 06/09/19 24 06/09/2023 FSH FSH [...] use: 25.8- 134.8 mIU/m L Not Available [facility] (Lab) [address], [place], [address], 06/14/2023 01:19:47 06/09/19 24 06/09/2023 TSH, REFLE X FREE T4 TSH 2.70 uIU/m L 0.30-5 .33 Not Available [facility] (Lab) [address], [place], [address], 06/14/2023 01:19:47 06/09/19 24 06/09/2023 HEMOG LOBIN [...] >8.0% Actio n sugge sted Not Available [facility] (Lab) [address], [place], [address], 06/14/2023 01:19:47 06/09/19 24 06/09/2023 TESTO STERO NE, FREE( DIALY SIS) AND TOTAL (LC/M S/MS) testosterone , total 192 NG/dL 2-45 high For addit ional cary medical centerr dev pinto e refer to http: //[facility] yocasta moses.que stdia gnost ics.c om/fa q/ Total Testo stero neLCM SMSFA Q165 (This link is being provi ded for infor [facility]/ educa shlomo l purpo ses only. ) This test was devel oped and its stevenson tical perfo rmanc e gina cteri stics have been deter mined by [employer]stic s [place], [place]. It has not been clear ed or appro ty by the U.S. Food and Drug Admin istra tion. This assay has been valid ated pursu ant to the CLIA regul ation s and is used for clini maricel purpo ses. Not Available [facility] (Lab) [address], [place], [address], 06/14/2023 01:19:48 06/09/19 24 06/09/2023 TESTO STERO NE, FREE( DIALY SIS) AND TOTAL (LC/M S/MS) testosterone , free 23.0 pg/mL 0.1-6. 4 high This test was devel oped and its stevenson tical perfo rmanc e gina cteri stics have been deter mined by [employer] [place]. It has not been clear ed or appro ty by the U.S. Food and Drug Admin istra tion. This assay has been valid ated pursu ant to the CLIA regul ation s and is used for clini maricel purpo ses. Perfo rming Organ izati on [facility] n: Site ID: AMD Name: [employer] ostjohanne s Tejinder ls [facility] Addre ss: [id number] [place], [place] Direc tor: Robbin Bosch MD PhD Not Available [facility] (Lab) [address], [place], [address], 06/14/2023 01:19:48 06/09/1906/09/2023 pregn naun test, urine HCG negati ve Not Available [facility] [address], [place], [address], 06/09/2023 09:42:24 Result Notes None recorded. Problems Name Problem SNOMED Code Status Onset Date Resolution Date Notes Provider Name and Address Organization Details Recorded Time Crohn's disease 47733674 Completed 201909/08/2021 Bridget Cruz [facility] 17:34:30 Syphilis test finding 079136206 Completed 201405/14/2020 Encntr screen for infectio ns w sexl mode of transmis s;Practi ce ID: 0001 Patricia Thomas [facility] 18:43:37 Secondar y amenorrh ea 046261087 Completed 201405/14/2020 Secondar y amenorrh ea;Pract ice ID: 0001 [facility] 18:43:22 Pregnanc y detectio n examinat ion Completed 201405/14/2020 Encounte r for pregnanc y test, result positive ;Practic e ID: 0001 Patricia Thomas [facility] 18:43:00 Generali zed abdomina l tenderne ss [id number] Completed 201405/14/2020 Generali zed abdomina l tenderne ss;Pract ice ID: 0001 Patricia Thomas [facility] 18:42:06 Abdomina l pain [id number] Completed 201405/14/2020 Unspecif ied abdomina l pain;Pra ctice ID: 0001 Patricia waller, [facility] 18:41:06 Gestatio n period, 9 weeks [id number] Completed 201405/14/2020 9 weeks gestatio n of pregnanc y;Practi ce ID: 0001 Patricia Martha waller, [facility] 18:42:42 Normal pregnanc y in multigra camille [id number] 14263 Completed 201505/14/2020 Encounte r for suprvsn of normal pregnanc y, first trimeste r;Practi ce ID: 0001 Patricia waller, [facility] 18:42:55 Pregnanc y, childbir th and puerperi um finding Completed 201505/14/2020 Oth pregnanc y related conditio ns, third trimeste r;Practi ce ID: 0001 Patricia waller, [facility] 18:41:24 Gestatio n period, 24 weeks 697400413 Completed 201505/14/2020 24 weeks gestatio n of pregnanc y;Practi ce ID: 0001 Patricia waller, [facility] 18:42:13 False labor before 37 complete d weeks of gestatio n [id number] 2646505 Completed 201505/14/2020 False labor before 37 complete d weeks of gest, second tri;Prac navi ID: 0001 Patricia waller, [facility] 18:41:47 Gestatio n period, 25 weeks [id number] Completed 201505/14/2020 25 weeks gestatio n of pregnanc y;Practi ce ID: 0001 Patricia waller, [facility] 18:42:15 Clinical finding Completed 201512/23/2020 Gastro-e sophagea l reflux disease without esophagi tis;Prac navi ID: 0001 Марина Morgan MD [address], [place], [address], [facility] 11:42:18 prematur e rupture of membrane s 395632033 Completed 201505/14/2020 Pretrm chela ROM, unsp time betw rupt and onst labr, 3rd tri;Prac navi ID: 0001 Patricia waller, [facility] 18:43:13 Gestatio n period, 29 weeks [id number] Completed 201505/14/2020 29 weeks gestatio n of pregnanc y;Practi ce ID: 0001 Patricia waller, [facility] 18:42:24 Generali zed abdomina l pain 974423540 Completed 201505/14/2020 Generali zed abdomina l pain;Pra ctice ID: 0001 [facility] 18:42:04 Clinical finding Completed 201505/14/2020 state, incident al;Pract ice ID: 0001 Patricia waller, [facility] 18:41:26 Complica tion of pregnanc y, childbir th and/or puerperi [id number] Completed 201505/14/2020 Oth diseases and conditio ns compl preg/chl dbrth;Pr actice ID: 0001 Patricia waller, [facility] 18:43:44 Gestatio n period, 30 weeks [id number] Completed 201505/14/2020 30 weeks gestatio n of pregnanc y;Practi ce ID: 0001 Patricia waller, [facility] 18:42:27 Gestatio n period, 32 weeks [id number] Completed 201505/14/2020 32 weeks gestatio n of pregnanc y;Practi ce ID: 0001 Patricia Martha waller, [facility] 18:42:29 Urinary tract infectio us disease 53503226 Completed 201505/14/2020 Urinary tract infectio n, site not specifie d;Practi ce ID: 0001 Patricia Martha waller, [facility] 18:43:46 Pregnanc y, childbir th and puerperi um finding Completed 201505/14/2020 Encntr for suprvsn of normal first preg, third trimeste r;Practi ce ID: 0001 Patricia waller, [facility] 18:43:[address] Concept Completed 201505/14/2020 Decrease d movement s, third trimeste r, unsp;Pra ctice ID: 0001 [facility] 18:43:27 Gestatio n period, 35 weeks [id number] Completed 201505/14/2020 35 weeks gestatio n of pregnanc y;Practi ce ID: 0001 [facility] 18:42:34 Gestatio n period, 36 weeks [id number] Completed 201505/14/2020 36 weeks gestatio n of pregnanc y;Practi ce ID: 0001 [facility] 18:42:36 Term pregnanc y delivere d [id number] Completed 201505/14/2020 Encounte r for full-ter m uncompli cated delivery ;Practic e ID: 0001 Patricia waller, [facility] 18:43:39 Single live from singleto n pregnanc y 754818057 Completed 201505/14/2020 Single live ;Pr actice ID: 0001 Patricia Thomas sridhar [facility] 18:43:24 Lochia finding Completed 201505/14/2020 Encounte r for routine postpart um follow-u p;Practi ce ID: 0001 Patriciahugo waller [facility] 18:42:[address] Concept Completed 201505/14/2020 Encntr for general adult medical exam w/o abnormal findings ;Practic e ID: 0001 Patriciahugo waller [facility] 18:43:30 Acute vaginiti s 52086623 Completed 201605/14/2020 Acute vaginiti s;Practi ce ID: 0001 Patricia Thomas sridhar [facility] 18:41:08 Educatio n Completed 201605/14/2020 Encounte r for oth general cnsl and advice on contrace ption;Pr actice ID: 0001 Patriciahugo waller [facility] 18:41:36 Pregnanc y test negative [id number] Completed 201605/14/2020 Encounte r for pregnanc y test, result negative ;Practic e ID: 0001 Patriciahugo waller [facility] 18:43:02 Uterine size for dates discrepa ncy Completed 201605/14/2020 Uterine size-joanie e discrepa ncy, first trimeste r;Practi ce ID: 0001 [facility] 18:43:49 Finding of contents of cervix 504336133 Completed 201605/14/2020 Weeks of gestatio n of pregnanc y not specifie d;Practi ce ID: 0001 Patricia Martha waller, [facility] 18:41:56 Amenorrh ea 71458936 Completed 201605/14/2020 Amenorrh ea, unspecif ied;Prac navi ID: 0001 Patriciahugo Thomas sridhar, [facility] 18:41:12 Threaten ed miscarri age 37016912 Completed 201605/14/2020 Threaten ed ;Practic e ID: 0001 Patricia Martha waller, [facility] 18:43:41 Antenata l screenin g Completed 201605/14/2020 Encounte r for antenata l screenin g for nuchal transluc ency;Pra ctice ID: 0001 Patricia Martha waller, [facility] 18:41:15 Gestatio n period, 12 weeks 41602037 Completed 201605/14/2020 12 weeks gestatio n of pregnanc y;Practi ce ID: 0001 Patricia Thomas null, [facility] 18:42:08 Evaluati on finding Completed 201605/14/2020 Hematuri a, unspecif ied;Prac navi ID: 0001 Patricia Thomas null, [facility] 18:41:42 Gestatio n period, 18 weeks [id number] Completed 201605/14/2020 18 weeks gestatio n of pregnanc y;Practi ce ID: 0001 Patricia Martha waller, [facility] 18:42:11 Antenata l screenin g for malforma tion Completed 201605/14/2020 Encounte r for antenata l screenin g for malforma tions;Pr actice ID: 0001 Patricia waller, [facility] 18:41:18 Pregnanc y, childbir th and puerperi um finding Completed 201705/14/2020 Oth pregnanc y related conditio ns, second trimeste r;Practi ce ID: 0001 Patricia waller, [facility] 18:41:22 Gestatio n period, 27 weeks [id number] Completed 201705/14/2020 27 weeks gestatio n of pregnanc y;Practi ce ID: 0001 Patricia waller, [facility] 18:42:20 Prematur e labor [id number] Completed 201705/14/2020 labor without delivery , third trimeste r;Practi ce ID: 0001 Patricia waller, [facility] 18:43:10 Gestatio n period, 28 weeks [id number] Completed 201705/14/2020 28 weeks gestatio n of pregnanc y;Practi ce ID: 0001 Patricia waller, [facility] 18:42:22 Hemorrha gic complica tion of pregnanc y 458085651 Completed 201705/14/2020 Other hemorrha ge in early pregnanc y;Practi ce ID: 0001 Patricia waller, [facility] 18:42:48 False labor at or after 37 complete d weeks of gestatio n 470301851 Completed 201705/14/2020 False labor at or after 37 complete d weeks of gestatio n;Practi ce ID: 0001 Patricia waller, [facility] 18:41:45 Gestatio n period, 38 weeks 95593277 Completed 201705/14/2020 38 weeks gestatio n of pregnanc y;Practi ce ID: 0001 Patricia waller, [facility] 18:42:38 Gestatio n period, 39 weeks [id number] Completed 201705/14/2020 39 weeks gestatio n of pregnanc y;Practi ce ID: 0001 Patricia waller, [facility] 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 18:43:32 Insertio n of intraute rine contrace ptive device Completed 201705/14/2020 Encounte r for insertio n of intraute rine contrace ptive device;P ractice ID: 0001 [facility] 18:42:50 Finding of pattern of menstrua l cycle 455462979 Completed 201705/14/2020 Excessiv e and frequent menstrua tion with irregula r cycle;Pr actice ID: 0001 Patricia waller, [facility] 18:42:01 Contrace ptive sheath status [id number] Completed 201705/14/2020 Encounte r for routine checking of intraute rine contrace p dev;Prac navi ID: 0001 Patricia waller, [facility] 18:41:30 Removal of intraute rine device Completed 201905/14/2020 Encounte r for removal of intraute rine contrace ptive device;P ractice ID: 0001 Patricia waller, [facility] 18:43:16 Pregnanc y test positive [id number] Completed 201405/14/2020 Pregnanc y examinat ion or test, positive result;R ecorded Elsewher e: No [facility]at ion[facility] Practi ce ID: 0001 Seymour lable Time: 11:00:00 AM Patricia waller [facility] 1 18:43:05 Female genital organ symptoms 133603481 Completed 201405/14/2020 Pelvic pain;Rec orded Elsewher e: No Locat ion: [facility] N Practi ce ID: 0001 Seymour lable Time: 09:30:00 AM Patricia Thomas [facility] 1 18:41:50 Dysfunct ional uterine bleeding Completed 201405/14/2020 Other disorder s of menstrua tion and other abnormal bleeding from female genital tract;Re corded Elsewher e: No [facility] N Robertati ce ID: 0001 Seymour lable Time: 03:30:00 PM Patricia Thomas sridhar [facility] 1 18:41:33 Adult health examinat ion Completed 201405/14/2020 ROUTINE MEDICAL EXAM;Rec orded Elsewher e: No Locat ion: [facility] N Robertati ce ID: 0001 Seymour lable Time: 01:00:00 PM Patricia waller [facility] 1 18:41:10 Pelvic and perineal pain 990512484 Completed 201705/14/2020 Pelvic and perineal pain;Rec orded Elsewher e: No Locat ion: [facility] S ource: [facility] Bra[facility] Coder laney: N Practi ce ID: 0001 Seymour lable Time: 08:45:00 AM Patricia waller [facility] 1 18:42:58 Clinical finding Completed 201707/17/2020 Presence of (intraut erine) contrace ptive device;R ecorded Elsewher e: No Locat ion: [facility] S ource: [facility] Coder laney: N Practi ce ID: 0001 Seymour lable Time: 02:30:00 PM Rebecca Jacob sridhar, [facility] 12:15:19 Female infertil ity [id number] Completed 201405/14/2020 Female infertil ity;Wilner rded Elsewher e: No Locat ion: [facility] S ource: [facility] Coder laney: N Practi ce ID: 0001 Seymour lable Time: 01:30:00 PM [facility] 18:41:53 Gestatio n period, 33 weeks [id number] Completed 201505/14/2020 33 weeks gestatio n of pregnanc y;Record ed Elsewher e: No Locat ion: [facility] S ource: [facility] Coder laney: N Practi ce ID: 0001 Seymour lable Time: 11:00:00 AM Patricia waller, [facility] 18:42:31 Gestatio n period, 26 weeks [id number] Completed 201505/14/2020 26 weeks gestatio n of pregnanc y;Record ed Elsewher e: No Locat ion: [facility] S ource: [facility] Coder laney: N Practi ce ID: 0001 Seymour lable Time: 02:00:00 PM Patricia waller [facility] 18:42:17 Speciali zed medical examinat ion Completed 201405/14/2020 Gynecolo gical Examinat ion;Wilner rded Elsewher e: No Locat ion: [facility] S ource: [facility] Coder laney: N Practi ce ID: 0001 Seymour lable Time: 01:00:00 PM Patricia waller [facility] 18:43:35 Emotiona l state finding Completed 201705/14/2020 Anxiety depressi on;Recor ded Elsewher e: No Locat ion: [facility] S ource: [facility] Coder laney: N Practi ce ID: 0001 Seymour lable Time: 09:45:00 AM [facility] 18:41:39 Atypical squamous cells of undeterm ined signific ance on cervical Papanico laou smear [id number] Completed 201409/08/2021 [facility] 2 17:34:30 Screenin g for malignan t neoplasm of cervix Completed 201405/14/2020 Pap Smear;Pr actice ID: 0001 Patricia [facility], [facility] 18:43:20 Pregnanc y [id number] Completed 202001/08/2021 [facility] 12:04:31 Headache 29983917 Completed Rxed fioricet Nicki hicks [facility] 12:04:24 Dyspnea 842238533 Completed NL holter [facility] 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 12:04:24 Obesity 694097912 Completed 37 week antenata l testing weekly [facility] 1 12:04:24 Ultrasou nd scan abnormal 792527490 Completed cisterna magna borderli ne marya rich at [facility] 11/26- They recommen d brain MRI to evaluate posterio r fossa- Let peds know! Nickivlad Campbell [facility], [facility] 1 12:04:24 Past pregnanc y history of postpart um hemorrha ge 722892249 Completed Nicki Petersondorenecristela hicks [facility], [facility] 1 12:04:24 Anxiety 67186984 Completed sertrali ne Nicki Shannan [facility], [facility] 12:04:24 Problem Notes None recorded. Procedures Surgical History Date Name Laterality Status Provider Name and Address Organization Details Recorded Time 06/09/19 24 Date of Last Pap Smear completed Elizabeth Childers [facility] 06/09/2023 09:27:05 09/17/19 22 extraction of wisdom tooth completed Patricia Thomas [facility] 07/29/2022 09:41:59 04/18/19 15 excision of colon completed VANESSA Hinds [address], [place], [address], [facility] 06/09/2023 09:36:29 04/18/19 15 appendectomy completed Patricia Thomas [facility] 05/14/2020 19:43:41 Imaging Results None recorded. [...] Prescrib ed Elsewher e: No [facility]at [facility] By: mayo case DateTime : 12/25/19 16 01:00:00 PM Not Available Not Available Not Available sertralin e 100 mg tablet 07/29 completed Not Available Not Available Not Available Diflucan 150 mg tablet take 1 tablet by oral route once 01/31 completed Prescrib ed Elsewher e: No [facility]at [facility] By: tyler matiasunter DateTime : [...] Prescrib ed Elsewher e: No [facility]at [facility] odify By: binta lópez DateTime : 02/05/20 17 11:42:21 AM Not Available Not Available Not Available Levora 0.15/30 (28) 0.15 mg-0.03 mg tablet take 1 tablet by oral route every day 10/04 completed Prescrib ed Elsewher e: No Locat ion: [facility] odify By: mayo case DateTime : [...] Prescrib ed Elsewher e: No [facility] By: leoncio Redman r DateTime : 02/03/20 18 08:15:00 AM Not Available Not Available Not Available Synthroid 25 mcg tablet take 1 tablet by oral route every day 03/31 completed Prescrib ed Elsewher e: No Locat ion: [facility] odify By: rd Redman r DateTime [...] Elsewher e: No Locat ion: Sudheer alexx [facility] odify By: [email or web address] Encounte r DateTime : 05/10/19 18 08:45:00 AM Not Available Not Available Not Available Synthroid 88 mcg tablet take 1 tablet by oral route daily 09/16 completed Prescrib ed Elsewher e: No Locat ion: [facility] odify By: ambecca matiasunter DateTime : 04/28/19 18 02:09:28 PM Not Available Not Available Not Available Synthroid 75 mcg tablet take 1 tablet by oral route every day 02/17 completed Prescrib ed Elsewher e: No Locat ion: [facility] odify By: mayo Crockerte r DateTime : 06/10/19 16 01:13:40 PM Not Available Not Available Not Available Synthroid 50 mcg tablet take 1 tablet by oral route every day 04/28 completed Prescrib ed Elsewher e: No Locat ion: [facility] odify By: [email or web address] Redman r DateTime : [...] Prescrib ed Elsewher e: No Locat ion: [facility] odify By: binta lópez DateTime : 04/25/19 10:15:00 AM Not Available Not Available Not Available epinephri ne 0.3 mg/0.3 mL injection , auto-inje ctor USE IM UTD 07/21 completed Not Available Not Available Not Available Vitamin D2 1,250 mcg (50,000 unit) capsule take 1 capsule by oral route every week 02/17 completed Prescrib ed Elsewher e: No Locat ion: [facility] odify By: mayo Redman r DateTime [...] Elsewher e: No Locat ion: [facility] odify By: mayo Redman r DateTime : 11/09/19 15 04:15:00 PM Not Available Not Available Not Available iron 18 mg tablet 02/17 completed Prescrib ed Elsewher e: Yes Loca tion: [facility] odify By: mayo Redman r DateTime : 08/20/19 15 01:00:00 PM Not Available Not Available Not Available azithromy arian 500 mg tablet take 2 tablet by oral route once 02/17 completed Prescrib ed Elsewher e: No Locat ion: [facility] odify By: mayo Redman r DateTime [...] Prescrib ed Elsewher e: No Locat ion: [facility] odify By: mayo Redman r DateTime : 09/12/19 16 08:30:00 AM Not Available Not Available Not Available Prevacid 24Hr 15 mg capsule,d elayed release take 1 capsule by oral route every day before a meal 02/17 completed Prescrib ed Elsewher e: No Locat ion: [facility] odify By: mayo Redman r DateTime : 08/11/19 16 02:00:00 PM Not Available Not Available Not Available butalbita l-acetami nophen-ca ffeine 50 mg-300 mg-40 mg capsule Take 1 capsule every 4 hours by oral route. 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 2 10:43:08 Date Recorded Body height Provider Name an d Address Organization Details Last Updated DateTime 06/04/2021 160.02 cm Marbin Marc MD [address], [place], [address], [facility] 06/04/2021 17:41:06 Date Recorded Body height Body mass index (BMI) Body weight Systolic blood pressure Diastolic blood pressure Provider Name and Address Organization Details Last Updated DateTime 06/09/2023 160.02 cm 38.4 kg/m2 08182.54 g 117 mm[Hg] 78 mm[Hg] [facility] 4 09:25:33 Date Recorded Body height Body mass index (BMI) Body weight Systolic blood pressure Diastolic blood pressure Provider Name and Address Organization Details Last Updated DateTime 06/22/2023 160.02 cm 39 kg/m2 18653.32 g 133 mm[Hg] 76 mm[Hg] [facility] 4 10:06:55 Date Recorded Body height Body mass index (BMI) Body weight Systolic blood pressure Diastolic blood pressure Provider Name and Address Organization Details Last Updated DateTime 07/29/2022 160.02 cm 35.8 kg/m2 37874.66 g 117 mm[Hg] 82 mm[Hg] Patricia Thomas [facility] 3 09:41:02 Social History Question Answer Notes LastModified by Organizat ion Details LastModified Time Tobacco Smoking Status Never Smoker Agata Adry waller, [facility] 10/12/2019 16:43:32 If You Are , What Was Your Level Of Alcohol Consumption Prior To ? None [email or web address] Information not available 05/14/2020 Are You Blind Or Do You Have Difficulty Seeing? No [email or web address] Information n ot available 10/21/2020 What Is Your Level Of Caffeine Consumption? Occasional [email or web address] Information not available 05/14/2020 In The 14 Days Before Symptom Onset, Have You Had Close Contact With A Laboratory-confirm ed COVID-19 While That Case Was Ill? No [email or web address] Information n ot available 10/21/2020 In The 14 Days Before Symptom Onset, Have You Had Close Contact With A Person Who Is Under Investigation For COVID-19 While That Person Was Ill? No [email or web address] Information not available 10/21/2020 Have You Been To An Area Known To Be High Risk For COVID-19? No [email or web address] Information not available 10/21/2020 Are You Deaf Or Do You Have Serious Difficulty Hearing? No [email or web address] Information not available 10/21/2020 What Type Of Diet Are You Following? REGULAR [email or web address] Information n ot available 10/21/2020 Do You Use Your Seat Belt Or Car Seat Routinely? Yes [email or web address] Information not available 10/21/2020 Are You Sexually Active? Yes Information not available 06/09/2023 Do You Have Smoke And Carbon Monoxide Detectors In Your Home? Yes [email or web address] Information not available 10/21/2020 Do You Use Sunscreen Routinely? Yes [email or web address] Information not available 10/21/2020 Has Tobacco Cessation Counseling Been Provided? No [email or web address] Information not available 05/14/2020 Do You Have Difficulty Walking Or Climbing Stairs? No [email or web address] Information not available 07/29/2022 Sex: Unknown Functional Status Question Answer Note LastModified by Organizat ion Details LastModified Time Do you use any illicit or recreational drugs? No [email or web address] Information not available 05/14/2020 Do you or have you ever used any other forms of tobacco or nicotine? No [email or web address] Information not available 05/14/2020 What is your level of alcohol consumption? None Information not available 05/14/2020 Are you able to walk? YESWOREST [email or web address] Information not available 10/21/2020 Are you able to care for yourself? Yes Information n ot available 07/29/2022 Do you have difficulty dressing or bathing? No [email or web address] Information not available 07/29/2022 What is your exercise level? Moderate [email or web address] Information not available 10/21/2020 Mental Status Question Answer Note LastModified by Organization D etails LastModified Time Do you feel stressed (tense, restless, nervous, or anxious, or unable to sleep at night)? [id number] [email or web address] Information not available 10/21/2020 Family History Relationship [...] ICD10 Code Diagnosis Note 1309 [facility]ie [facility] [address],[place] [address] 08/06/2019 10:35:26 08/07/2019 13:38:12 Vaginitis 85276007 N76.0 Discussed use of mild soap like dove or ivory, cotton underwear w/out dye, hypoallerg enic detergent, wipe from front to back, avoid tub baths, keep perineum clean and dry, d/c use of baby wipes. Encouraged daily intake of yogurt or womens health probiotic. Internal and external affirm collected along with STD culture per patient request. [id number] Melodie Jenkins [facility] [address],[place] [address] 10/02/2019 11:06:56 10/03/2019 09:16:56 test positive 163947541 Z32.01 9729 Marbin Marc MD [facility] [address],[place] [address] 10/12/2019 16:08:09 10/15/2019 14:20:15 test positive 723386801 Z32.01 This patient is a 29-year-ol d [...] the ultrasound . 9855 Marbin Marc MD [facility] [address],[place] [address] 10/15/2019 13:24:40 10/15/2019 14:36:23 screening 289210495 Z36.9 This patient is a 29-year-ol d female who presents for follow-up onearly gestation. Herpregnan cy was of unknown viability. Ultrasound was performed today. Intrauteri ne gestationa l sac and yolk sac were observed.T his is fairly consistent with her suspectedg estational age.She has no complaints . No cramping or bleeding. She will follow-up in 2 weeks. 9856 Marbin Marc MD [facility] [address],[place] [address] 10/15/2019 13:25:12 10/15/2019 17:30:58 Uncertain viability of 796802566 O36.80X9 Z3A.01 00454 Marbin Marc MD [facility] [address],[place] [address] 10/29/2019 15:24:56 10/29/2019 16:21:39 Uncertain viability of 794759367 O36.80X9 Z3A.01 [id number] Marbin Marc MD [facility] [address],[place] [address] 10/29/2019 15:25:16 10/29/2019 17:40:59 Crohn's disease 51021581 K50.90 This patient is a 29-year-ol d [...] initial OB. We talked about genetic screening. 11075 Melodie Jenkins CNM [facility] [address],[place] [address] 11/05/2019 17:25:37 11/05/2019 22:15:29 test positive 359717958 Z32.01 Risk factors addressed: Tobacco Cessation, Safe [...] annual well woman examinatio n and address [facility] . [address] [facility] [address],[facility] [place] [address] 05/14/2020 16:55:26 05/20/2020 12:21:48 Amenorrhea 11498478 N91.2 76803 Marbin Marc MD [facility] [address],[facility] [place] [address] 05/14/2020 16:49:09 05/14/2020 17:28:37 screening 346831169 Z36.87 This patient is a 29-year-ol d female who presents for follow-up onearly gestation. Herpregnan cy was of unknown viability. Ultrasound was performed today. Intrauteri ne gestationa l sac and yolk sac were observed.T his is fairly consistent with her suspectedg estational age.She has no complaints . No cramping or bleeding. She will follow-up in 2 weeks. [id number] Marbin Marc MD [facility] [address],[place] [address] 06/10/2020 14:41:22 06/10/2020 16:08:51 Tachycardia 6679651 R00.0 This patient is a 29-year-ol d [...] this patient s visit, including available hand audio visual project manager upon arrive, temperatur e check and being asked a series of screening questions. All staff wore face coverings during this encounter, as well as provided additional cleaning and sanitizing of all surfaces, including countertop s, pens, chairs, door handles, light switches, etc, prior to and following the patient s visit. Orthostati c hypotension 39029541 I95.1 Headache 38813958 R51.9 [id number] Marbin Marc MD [facility] [address],[place] [address] 06/23/2020 09:35:05 06/23/2020 10:17:22 screening 395678247 Z36.82 This patient is a 29-year-ol d female who presents for follow-up onearly gestation. Herpregnan cy was of unknown viability. Ultrasound was performed today. Intrauteri ne gestationa l sac and yolk sac were observed.T his is fairly consistent with her suspectedg estational age.She has no complaints . No cramping or bleeding. She will follow-up in 2 weeks. 42577 Marbin Marc MD [facility] [address],[place] [address] 06/23/2020 09:35:51 06/23/2020 13:22:37 Routine care 830611360 Z34.91 Headache 49213947 R51.9 [id number] Melodie Jenkins CNM [facility] [address],[place] [address] 07/21/2020 11:02:28 07/21/2020 12:21:49 Routine care 794039757 Z34.92 [id number] Melodie Jenkins CNM [facility] [address],[place] [address] 08/12/2020 12:15:27 08/12/2020 12:42:58 Urinary tract infectious disease 09979718 N39.0 85584 Melodie Jenkins CNM [facility] [address],[place] [address] 08/18/2020 13:55:21 08/18/2020 15:22:57 Routine care 611032910 Z34.92 50239 Marbin Marc MD [facility] [address],[place] [address] 08/18/2020 13:54:38 08/18/2020 15:05:57 screening for malformation 837307515 Z36.3 26779 Melodie Jenkins [facility] [address],[place] [address] 09/22/2020 13:55:52 09/22/2020 15:22:24 Routine care 880056333 Z34.92 84288 Marbin Marc MD [facility] [address],[place] [address] 09/22/2020 13:54:28 09/22/2020 14:56:16 Excessive growth affecting management of mother 26727777 O36.62X0 Z3A.24 [id number] Melodie Jenkins [facility] [address],[place] [address] 10/21/2020 13:40:04 10/21/2020 16:44:29 Routine care 765316184 Z34.92 [id number] Marbin Marc MD [facility] [address],[place] [address] 11/01/2020 12:36:48 11/01/2020 13:17:16 Routine care 284664859 Z34.91 Crohn's disease 95417717 K50.90 This patient is a 29-year-ol d [...] initial OB. We talked about genetic screening. 22522 Shanita Negrete, [facility] [address],[place] [address] 11/21/2020 14:02:00 11/21/2020 16:40:13 Routine care 010671986 Z34.93 33874 Marbin Marc MD [facility] [address],[place] [address] 12/02/2020 10:49:04 12/02/2020 12:03:22 Routine care 307204241 Z34.91 Hemorrhoids 53025766 K64 .9 63135 Melodie Jenkins [facility] [address],[place] [address] 12/16/2020 09:47:06 12/16/2020 23:14:17 Routine care 446843038 Z34.92 [id number] Marbin Marc MD [facility] [address],[place] [address] 12/16/2020 09:47:41 12/16/2020 11:48:06 Maternal obesity complicating , childbirth and the puerperium, antepartum 5695081924 07 O99.213 46793 Marbin Marc MD [facility] [address],[place] [address] 12/16/2020 09:49:49 12/16/2020 11:48:32 Pre-existing maternal disease complicating 0469074510 6106 O99.891 01699 Marbin Marc MD [facility] [address],[place] [address] 12/19/2020 11:17:29 12/19/2020 13:08:12 Maternal obesity complicating , childbirth and the puerperium, antepartum 0193696506 07 O99.213 32849 MD Roxana Womack [address],[place] [address] 12/19/2020 12:47:08 12/19/2020 14:07:49 Abnormal heart rate 259043745 O36.8330 Z3A.37 97541 Марина Morgan MD [facility] [address],[place] [address] 12/23/2020 09:38:51 12/23/2020 10:40:59 Pre-existing maternal disease complicating 7294800320 6106 O99.213 Z3A.38 47418 Марина Morgan MD [facility] [address],[place] [address] 12/23/2020 09:39:10 12/23/2020 12:22:11 Maternal obesity complicating , childbirth and the puerperium, antepartum 1576817513 07 O99.213 [id number] Марина Morgan MD [facility] [address],[place] [address] 12/23/2020 09:39:23 12/23/2020 12:52:32 Routine care 742322454 Z34.83 40372 Melodie Jenkins CNM [facility] [address],[place] [address] 12/29/2020 14:28:49 12/29/2020 15:50:41 Routine care 986006181 Z34.92 56230 Marbin Marc MD [facility] [address],[place] [address] 12/29/2020 13:29:42 12/29/2020 14:28:54 Maternal obesity complicating , childbirth and the puerperium, antepartum 8600842835 07 O99.213 52085 MD Roxana Womack [address],[place] [address] 12/29/2020 14:58:47 12/29/2020 16:29:49 Maternal obesity complicating , childbirth and the puerperium, antepartum 3819909468 07 O99.213 48366 Melodie Jenkins CNM [facility] [address],[place] [address] 01/07/2021 11:52:57 01/07/2021 14:56:14 -induced hypertension 1718261470 9100 O13.9 PIH precaution s given. RTC for routine post visit. Pt desires tubal ligation. Discussed procedure risks and benefits. Will send to surgery scheduling . 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 Has only been taking 50mg and feels it works well for her. Female sterilization 608 46818 Z30.2 99599 Marbin Marc MD [facility] [address],[facility] [place] [address] 01/19/2021 09:46:40 01/19/2021 10:50:08 Infection of uterus 288767789 N71.9 This patient is a 30-year-ol d [...] up in 5 days for routine follow-up. [id number] Melodie Jenkins CNM [facility] [address],[facility] [place] [address] 01/26/2021 11:56:15 01/27/2021 19:45:23 state 19302266 Z39.2 Continue to watch for signs/symp toms [...] paper copy of today's plan if desired [id number] Marbin Marc MD [facility] [address],[facility] [place] [address] 02/10/2021 15:49:50 02/10/2021 17:06:15 Female sterilization 40682005 Z30.2 this patient is a 30-year-ol d female who desires female sterilizat ion. We have agreed to perform laparoscop ic bilateral salpingect natasha. She understand s the risks, benefits, and alternativ es. She has completed the informed consent process and is ready to proceed. [id number] Melodie Jenkins CNM [facility] [address],[place] [address] 02/24/2021 14:20:01 02/24/2021 15:30:03 Contraception care management 674419724 Z30.9 Decided against tubal d/t chrons. Pt would like to start p.o.p. Discussed importance of taking at the same time every day. Also informed that it may not be as effective as estrogen containing pills. RTC in 3 months for wwe with med check. [id number] [facility] [address],[place] [address] 04/29/2021 10:35:14 04/30/2021 17:08:00 Pain of breast 18419469 N64.4 Due to descriptio n of pain being pins and needles will treat for yeast with a 2 week round of diflucan. If no resolution of symptoms will need to schedule imaging. Pt will return in 1-2 weeks for follow up. [id number] Marbin Marc MD [facility] [address],[place] [address] 06/04/2021 11:21:03 06/04/2021 17:42:14 [id number] [facility] [address],[place] [address] 07/29/2022 09:30:44 07/29/2022 10:04:29 Vaginitis 69733132 N76.0 Discussed use of mild soap like dove or ivory, cotton underwear w/out dye, hypoallerg enic detergent, wipe from front to back, avoid tub baths, keep perineum clean and dry, d/c use of baby wipes. Encouraged daily intake of yogurt or womens health probiotic. Internal and external affirm collected along with STD culture per patient request. [id number] VANESSA Hinds [facility] [address],[facility] [place] [address] 06/09/2023 09:14:02 06/09/2023 10:03:07 Gynecologic examination 60184565 Z01.419 WWEpap updateddec lined STI screeningr outine [...] of today's plan if desired. Irregular periods 453869 07 N92.6 UPT (-)labs orderedgiv en this is the first occurrence , continue to track cycles and return if no period for 3 months. Discussed importance of periods every 3 months for endometria l protection . [id number] VANESSA Hinds [facility] [address],[place] [address] 06/22/2023 10:03:28 06/22/2023 11:08:01 Contraception care management 864573058 Z30.9 Discussed all control options in great [...] Recorded Advance Directives Directive None Recorded Payers Insurance Date Sequence Insurance Name Policy Number Policy Disla Covered Member ID Disla Member ID Guarantor Name 06/22/2023 1 MEDICAID-[place]: [facility] Agnieszka Riddle [id number] Agnieszka Sykes 11/05/2019 SLIDING FEE SCHEDULE - DISCOUNT Agnieszka Sykes 06/22/2023 1 MEDICAID-PR: [facility] Agnieszka Riddle [id number] Agnieszka Sykes 06/22/2023 2 [facility] PRIOR TO 10/16/2020 (MEDICAID REPLACEMENT - HMO) Agnieszka Riddle [id number] Agnieszka Sykes 06/22/2023 1 [facility] Agnieszka Riddle [id number] Agnieszka Sykes 06/22/2023 1 [facility] Agnieszka Riddle [id number] Agnieszka Sykes 06/22/2023 2 MEDICAID-PR: [facility] Agnieszka Riddle [id number] Agnieszka Sykes 06/20/2023 1 [place] [id number] Marlo Sykes [id number] Agnieszka Sykes 06/22/2023 2 [facility] PRIOR TO 10/16/2020 (MEDICAID REPLACEMENT - HMO) Agnieszka Sykes [id number] Agnieszka Sykes 06/22/2023 2 [facility] ON OR AFTER 10/16/20 (MEDICAID REPLACEMENT - HMO) Agnieszka Sykes [id number] Agnieszka Sykes Notes Date Note Type Note Provider Name and Address Organization Details Recorded Time 04/29/2021 text/html Pain in left millie ast while . Usually starts a few minutes into the feeding. Feels like pins and needles. Very sharp. No lumps, no redness, no tender areas. No fever or flu like symptoms. Melodie waller [facility] 05/18/2021 18:45:43 07/29/2022 text/html Vaginal/Vulvar ProblemReported bypatient.Notes:Water y discharge, occasional odor, occasional itching Melodie Jenkins sridhar [facility] 07/29/2022 09:54:27 06/09/2023 text/html Annual GYNReport [...] she has skipped a month VANESSA Hinds [address], [place], [address], [facility] 06/09/2023 10:02:07 06/22/2023 text/html 32yo [id number] ents for BC consultwould like BC to prevent and period regulationdenies h/o DVT/PE, HTN, Stroke/MA, cancer, liver disease, or migraine with auramedical hx: Crohn's VANESSA Hinds [address], [place], [address], [facility] 06/22/2023 11:01:35 OBGyn Episode Ob Episode Information Episode Created Date Number of Fetuses Patient Bloodtype Patient rh Status Prepregnancy Weight lbs Domestic Partner Domestic Partner Phone Father Name Reservoir Caretaker Status 08/06/19 20 1 CLOSED Fetus Data [...] Domestic Partner Domestic Partner Phone Father Name Reservoir Caretaker Status 08/06/19 1 CLOSED Fetus Data First [...] Domestic Partner Domestic Partner Phone Father Name Reservoir Caretaker Status 08/06/19 1 CLOSED Fetus Data First [...] Domestic Partner Domestic Partner Phone Father Name Reservoir Caretaker Status 06/24/19 21 1 CLOSED Fetus Data [...] Domestic Partner Domestic Partner Phone Father Name Reservoir Caretaker Status 06/24/19 21 1 O Positive 207 CLOSED Fetus Data First Name Last Name Admitted to NICU Weight (g) Sex Living Outcome Pediatric Complications Fetus ID Race Codes Race Delivery Type 3401.94 M true Full Term 8333 Vaginal Delivery Problems Problem Notes pt cancelled 08/20 [facility] u/s & consult. 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 Anxiety 63002313 sertraline Candelario Calculation Initial Candelario Date Initial [...] Weight in lbs Pre/Post Dialysis Refused Weight 208.258629623573 BP Diastolic BP Location Tested BP Systolic BP Type 76 R arm 115 sitting Fetus Heart Rate Present A 155 Fetus Movement Comments this patient is a 29-year-ol d 5 para 2021 at 11 weeks and 6 days gestation who presents for initial visit. Patient's is complicated by Crohn's disease, headache, shortness of breath. She has a prescription of Fioricet, she has an [facility] consult for her Crohn's disease at 21 [...] Weight in lbs Pre/Post Dialysis Refused Weight 203.87495959962 BP Diastolic BP Location Tested BP Systolic [...] Weight in lbs Pre/Post Dialysis Refused Weight 203.15694753600 BP Diastolic BP Location Tested BP Systolic [...] Weight in lbs Pre/Post Dialysis Refused Weight 208.776301869923 BP Diastolic BP Location Tested BP Systolic BP Type 68 111 Fetus Heart Rate Present Fetus Movement A Yes Comments Doing well. She has not resc heduled [facility] yet. Gave her the number for m to call and schedule. Mood stable. EPDS 10. U/S today. Await recommendations. Plan 1 hour gtt at next visit. Flowsheet Date 10/21/2020 Donahue Score Blood Edema Fundus Height Fundus Units Glucose Ketones Leukocytes Nitrite Labor Signs Protein Cervic Dilation Cervic Effacement Cervic Station neg none 30 trace Type Weight in lbs Pre/Post Dialysis Refused Weight 207.017066263570 BP Diastolic BP Location Tested BP Systolic [...] Weight in lbs Pre/Post Dialysis Refused Weight 211.374265116271 BP Diastolic BP Location Tested BP Systolic BP Type 82 128 Fetus Heart Rate Present A 145 Fetus Movement A Yes Comments 2+glucose, just ate, Flowsheet Date 11/21/2020 Donahue Score Blood Edema Fundus Height Fundus Units Glucose Ketones Leukocytes Nitrite Labor Signs Protein Cervic Dilation Cervic Effacement Cervic Station neg trace trace Type Weight in lbs Pre/Post Dialysis Refused Weight 211.407809378572 BP Diastolic BP Location Tested BP Systolic [...] Weight in lbs Pre/Post Dialysis Refused Weight 215.642246723603 BP Diastolic BP Location Tested BP Systolic [...] Weight in lbs Pre/Post Dialysis Refused Weight 213.293979600130 BP Diastolic BP Location Tested BP Systolic [...] Weight in lbs Pre/Post Dialysis Refused Weight 216.740497310552 BP Diastolic BP Location Tested BP Systolic [...] Weight in lbs Pre/Post Dialysis Refused Weight 218.545871828236 BP Diastolic BP Location Tested BP Systolic [...] Weight in lbs Pre/Post Dialysis Refused Weight 200.868811994435 BP Diastolic BP Location Tested BP Systolic [...] Estim ated Date of Delivery false Thalassemia (St Helenian, Citizen Of [place], Mediterranean, Or Background): MCV < 80 false Neural Tube Defect (Meningomyelocele, Spina Bifi da, Or Anencephaly) false Congenital Heart Defect false Down Syndrome false Andrea-Sachs (eg, Rastafari, Cajun, Maori-Palestinian) f alse Renetta Disease false Sickle Cell Disease Or Trait () false Hemophilia Or Other Blood Disorders false Muscular Dystrophy false Cystic Fibrosis false Carlee's Chorea false Intellectual Disability/Autism false If Yes, [...] d Regional-Ep idural 38.6 false Melodie Jenkins [facility] Discharge Information Feeding Method Contraceptive Method Maternal HG B and HCT Levels
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
[2024-09-28] MEDS: LACTATED RINGERS 1,000 ML 30 ML IV CONT ×2 (12:10→15:25)
[2024-09-28 12:21] LABS: BEDSIDEPREGUCG Negative (Negative)
--- NOTE | 2024-09-28 13:28 | WPDHPUPDATE1 ---
History and Physical Update Update Date/Time: 09/28/24 13:28 History and Physical has been reviewed, including an updated exam of the patient. There are NO changes in the patient's condition. Risks, benefits, and alternatives have been discussed and questions answered. Patient agrees to proceed with procedure.
--- NOTE | 2024-09-28 14:11 | WPDANESEPPF ---
Anes - Initial Pre Proc Eval Procedure: Operation Date: 09/28/24 14:00 Proposed Procedures p Bilateral Breast Implant Removal - Ifeanyi Lamb MD Date/Time: 09/28/24 14:11 Surgeon: Ifeanyi Lamb MD Pre Op Diagnosis: Hx of Breast Aug Patient Data Age: 34 Gender: F Height: 1.65 m Weight: 94 kg Last Vital Signs Temp 99 F 09/28/24 12:00 Pulse 86 09/28/24 12:00 Resp 16 09/28/24 12:00 BP 125/78 09/28/24 12:00 Pulse Ox 100 09/28/24 12:00 O2 Del Method Room Air 09/28/24 12:00 Allergies Allergy/AdvReac Type Severity Reaction Status Date / Time No Known Allergies Allergy Verified 09/28/24 12:01 Home Medications ?Medication ?Instructions ?Recorded ?Confirmed ?Type doxycycline hyclate 100 mg tablet 100 mg PO Q12H #20 tabs 08/09/24 09/28/24 Rx linezolid 600 mg tablet 600 mg PO Q12H 09/21/24 09/28/24 History Laboratory Tests 09/28/24 12:18 POC Urine HCG, Qual Negative (Negative) Patient hx anesthesia problems: none Family hx anesthesia problems: none Results Review: All pre-operative results and documents have been reviewed as part of the pre-operative evaluation. [facility] Past Medical History Medical History Edema of breast Swelling of breast Right Breast pain, right Surgical wound, non healing Frequent loose stools Irregular periods Elevated liver enzymes Anemia TATO on CPAP Chest pain BMI 34.0-34.9,adult Stomach ulcer History of blood transfusion TATO (obstructive sleep apnea) Hernia Shortness of Breath Fatigue Increased frequency of urination Elevated LDL cholesterol level Elevated glucose Chest discomfort BMI 31.0-31.9,adult Hypersomnia Snoring BMI 32.0-32.9,adult Screening for diabetes mellitus Depression Anxiety Eczema Obesity Crohn's disease Surgical History Surgical History Hx of breast implant H/O abdominoplasty H/O breast augmentation (~12/2023) Hx of appendectomy 2015 History of colon surgery Family History Family History Father Hypertension Mother Hypertension COPD (chronic obstructive pulmonary disease) Heart disease Grandparent Cerebrovascular accident Social History Social History Smoking status: Former smoker Tobacco type: cigarettes and e-cigarettes/vaping Second hand tobacco smoke exposure: No Smoking end date: 01/17/24 Additional smoking assessment comments: VAPED X6 MONTH, QUIT 09/17/23 Alcohol intake: current Drinks per week: 1 Alcohol use details: socially- very rare Substance use: current Substance use type: marijuana Other substance usage details: Daily Last use: 2021 Do You Feel Safe in your Home?: Yes Lack of Transportation: No Lack of Food: Never True Current Housing: I Have Housing Concerned About Future Housing: No Difficulty Paying Gas/Electric Bills: No Difficulty Paying for Meds: No Currently Unemployed: No Education: High School Diploma/GED Difficulty w/ Childcare or Family Care: No Living arrangements: with family Additional living arrangements comments: HUSB AND 3 CHILDREN Occupation/Education: occupation 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 Gender identity (if verbalized by the patient): Female Sexual Orientation (if Verbalized by the Patient): Straight or Heterosexual Spiritual care concerns: No Anes - Eval Final PreProcedure Day of Procedure 09/28/24 14:11 Patient weight: obese Heart: regular rate and rhythm Lungs: clear to auscultation Airway: Mallampati scale class II Neurological: alert and oriented Last oral intake: >/= 8 hours ASA classification: III Emergent: no Anesthetic plan: proceed Anesthesia type and monitoring: general LMA and standard monitoring Results Review: All pre-operative results and documents have been reviewed as part of the pre-operative evaluation. Informed Consent: The patient's anesthetic plan and its attendant risks and benefits were discussed with the patient/family/POA. Questions were solicited and answers provided to the satisfaction of the patient/family/POA.
[2024-09-28] MEDS: ceFAZolin 2 GM/D5W 50 ML 2 GM/50 ML BAG IVPB (14:23)
--- NOTE | 2024-09-28 14:55 | S_PTH ---
PATIENT: Agnieszka Sykes LOC: [facility] U#:[id number] AGE/SX: 34/F ROOM: RE09/28/[address]: Ifeanyi Lamb MD : 1990 BED: DIS: 09/28/2024 SPEC #: [id number] RECD: 10/01/24 07:46 STATUS: ALIYA REQ #: [id number] MYRIAM: 09/28/24 14:[address]: Ifeanyi Lamb DEPT: [facility] Surgical RECD BY: Stefani Roth ENTERED: 10/01/24 07:46 SP TYPE: Surgical OTHR DR: Helen Garber APRN Tissues: A - Breast Capsule B - Breast Capsule Procedures: Hematoxylin and Eosin Stain Gross and Microscopic Level 3
[2024-09-28] MEDS: LIDO 1%/EPINEPHRINE 1:100,000 20 ML VIAL 30 ML INFILTRATE (15:04)
[2024-09-28] MEDS: BUPivacaine HCL 0.25% PF 30 ML VIAL INFILTRATE (15:04)
[2024-09-28] MEDS: fentaNYL CITRATE INJ (*CRX) 100 MCG/2 ML VIAL 25 MCG IV PUSH ×4 (16:00→16:15)
== END 2024-09-28 17:12 | disposition home or self-care (01) ==
PROVIDERS: PCP Nurse Practitioner Family; Visit Provider Surgery Plastic and Reconstructive Surgery
PROC: (CPT 19371; principal; 2024-09-28 14:00)
DX: T85.898A Other specified complication of other internal prosthetic devices, implants and grafts, initial encounter (principal); N64.59 Other signs and symptoms in breast; Y83.8 Other surgical procedures as the cause of abnormal reaction of the patient, or of later complication, without mention of misadventure at the time of the procedure; D64.9 Anemia, unspecified; G47.33 Obstructive sleep apnea (adult) (pediatric); E78.00 Pure hypercholesterolemia, unspecified; G47.10 Hypersomnia, unspecified; F32.A Depression, unspecified; F41.9 Anxiety disorder, unspecified; K50.90 Crohn's disease, unspecified, without complications; R35.0 Frequency of micturition; E66.9 Obesity, unspecified; Z68.34 Body mass index [BMI] 34.0-34.9, adult; Z98.890 Other specified postprocedural states; Z90.49 Acquired absence of other specified parts of digestive tract; Z99.89 Dependence on other enabling machines and devices; Z87.891 Personal history of nicotine dependence; Z87.11 Personal history of peptic ulcer disease; Z86.718 Personal history of other venous thrombosis and embolism; Z82.49 Family history of ischemic heart disease and other diseases of the circulatory system
CPT/HCPCS: 19371; 88304; J0690; J1580; J2004; J2250; J3010; J7120

== ENCOUNTER 2025-02-12 00:31 | Day surgery (SDC) | payer OTHER, SELFPAY ==
[2025-01-30 10:49] VITALS: BMI 35.6
--- NOTE | 2025-01-30 11:02 | PC.NURSE ---
[facility] has started construction of its new state of the art ER which will open Spring 2026. With this, we anticipate parking may be a challenge for some our surgical patients and families. Parking spaces are limited but are available for all Surgical, obstetrics, and ER patients sharing this lot. If you arrive and find you are having a hard time finding a parking space, please note that we understand the challenges, please drive around the hospital and park near Hospital Entrance 1. When you enter this entrance, you can ask a volunteer to direct or take you back to the surgical waiting area to check in. We appreciate everyone?s understanding of these expected challenges while we build for your future. Report to the Outpatient Waiting Room, entrance under the green pavilion located off [address], at time _0600_ on date _02/12/25_. Planned Procedure Time: _0730_.? Time changes happen often and if your time is changed the preop area will call you the afternoon before. - You and your visitor will be asked to self-screen and do not enter if you have any COVID symptoms. Please call surgeon if you need to reschedule. - A mask is optional within the hospital at this time. Patients may have clear liquids (water, carbonated beverages, clear teas, apple juice) until 3 hours prior to surgery with a maximum of 20 ounces. - No food from midnight until time of surgery and no smoking, or chewing tobacco (or any form of nicotine). No chewing gum, candy or mints. Take only the following medications with a SIP of water on the morning of surgery: _Doxycycline__ DO NOT STOP ANY OF YOUR OTHER PRESCRIPTION MEDICATIONS PRIOR TO SURGERY EXCEPT THE FOLLOWING Hold all vitamins and supplements for 3 days per anesthesiologist. Please no make-up, nail mauritian, hairspray, perfume, deodorant, or body powder the day of surgery.? No jewelry (including any body piercings) or valuables the day of surgery, leave them at home.? Please take a shower or bath the night before, or the morning of, surgery with an antibacterial soap.? Wear comfortable, loose fitting clothing.? - Jewelry must be removed prior to entering the operating room.? Rings and piercings that are not removed may be cut off. - The hospital will not accept responsibility for valuables.? - Please leave all valuables, including medications, at home the day of surgery. If you are going home after surgery, a licensed helper driver must drive you home.? - NO public transportation without another adult if you receive anesthesia. - We recommend that an adult stay with you for 24 hours following discharge. - We also recommend that you do not drive, make important decision, drink alcoholic beverages, or take any drugs that were not prescribed by your health care provider for at least 24 hours after your discharge time. Follow any additional instructions given to you from your surgeon. Telephone instructions given to _Agnieszka_and asked if any additional questions and then verbalized understanding. Patient advised to call surgeon office or pre surgery nurse liaison [phone] if any additional questions.
[2025-02-12] VITALS (8 sets, daily range): BP systolic 121–130; BP diastolic 71–82; PULSE 78–104; RESP 14–22; TEMP 36.3–36.6; O2SAT 92–100
--- OUTSIDE RECORDS SUMMARY | 2025-02-12 00:34 | XMS_ITS | Clinical Summary ---
Author Organization [facility] Address [address] [place] [address] Care Team Providers Care Forest Botany Instructor Name Role Phone Helen Garber Gato YU-DIFFUSER OPERATOR Primary Care Provider Source Comments [facility],non-owned Affiliates and Associated Physician Practices is amultiple site organization consisting of ambulatory clinics and hospital sitesin [place], [place], [place] and [place]. This disclosure is being madepursuant to the Care Everywhere program and may not contain all information available regarding this patient. Last updated 18.[facility] Allergies No known active allergies Medications * [...] can be associated with trisomy 18 but Brittany had aneuploidy screening with cell free DNA [...] negative result 2. IF abnormal Director Of Sales to refer to Pediatric Neurology [Consider [facility] IF needed] 1. IF the referring OB has concerns that this plan cannot be performed without a referral to the [facility] please let us know and we will refer Brittany. Depression during , antepartum 11/27/19 Assessment & [...] the preferred antidepressants during breast- feeding. 1. Brittany was instructed to notify her Director Of Sales of the use of this medication 1. 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 Dyspnea, unspecified 11/24/2020 Overview (11/26/2020): 06/18/20: 24 hr holter monitor: Sinus rhythm HR range 48-146; average HR 81 bpm. 2 premature supraventricular complexes. No SVT. 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 Gender Identity Not on file Sexual Orientation Not on file Last Filed Vital Signs Vital Sign Reading Time Taken Comments Blood Pressure 120/85 06/19/2024 3:10 PM HIDE AND SKIN PROCESSING WORKER Pulse 82 06/19/2024 3:10 PM HIDE AND SKIN PROCESSING WORKER Temperature 36.6 C (97.8 F) 06/19/2024 3:10 PM HIDE AND SKIN PROCESSING WORKER Respiratory Rate 16 06/19/2024 3:10 PM HIDE AND SKIN PROCESSING WORKER Oxygen Saturation 98% 06/19/2024 3:10 PM HIDE AND SKIN PROCESSING WORKER Inhaled Oxygen Concentration - - Weight 96.2 kg (212 lb 1.3 oz) 06/19/2024 8:34 A M HIDE AND SKIN PROCESSING WORKER Height 170.2 cm (5' 7.01) 06/19/2024 8:34 AM CS T Body Mass Index 33.21 06/19/2024 8:34 AM HIDE AND SKIN PROCESSING WORKER Plan of Treatment Health Maintenance Due Date Last Done Comments HEPATITIS C SCREENING 08/08/2009 DTAP/TDAP/TD VACCINES (1 - Tdap) 08/12/2010 HEPATITIS B VACCINE (1 of 3 - 19+ 3-dose series) 08/12/2010 PNEUMOCOCCAL VACCINE (1 of 2 - PCV) 08/12/2010 HPV VACCINE (1 - 3-dose SCDM series) 08/12/2018 DEPRESSION SCREENING 04/18/2024 COVID-19 VACCINE (1 - 2023-2 5 season) 2024 INFLUENZA VACCINE (#1) 2024 8, 06/03/2015 PAP SMEAR 06/09/2026 06/09/2023, 06/09/2023 ZOSTER VACCINE (1 of 2) 08/12/2041 HIV SCREENING Completed 06/23/2020 HIB VACCINE Aged Out No longer eligi ble based on patient's age to complete this topic MENINGOCOCCAL (Group B) VACCINE SHARED DECISION-MAKING Aged Out No longer eligible based on patient's age to complete this topic MENINGOCOCCAL GROUPS A/C/Y/W VACCINE Aged Out No longer eligible b ased on patient's age to complete this topic Insurance SELF PAY NO INSURANCE Member Subscriber Plan / Payer (Ef fective for All Dates) Name:Brittany Mckinney Member ID:Not on file Relation to Subscriber:Not on file Name:BRITTANY MCKINNEY Subscriber ID:Not on file (Home) Address: [place] [address] Payer ID:Not on file Group ID:Not on file Type:Self Pay Address: [place], [place] [facility] Care Teams Forest Botany Instructor Relationship Specialty Start Date End Date Helen Garber, STRUCTURAL STEEL TRADES WORKER-DIFFUSER OPERATOR [address] [facility] [address] [id number] PCP - General Nurse Practitioner 06/19/24
--- OUTSIDE RECORDS SUMMARY | 2025-02-12 00:34 | XMS_ITS | Clinical Summary ---
Author Organization [facility] Address [address] [place] [address] Care Team Providers Care Adjunct Professor Of Voice Name Role Phone Marbin Marc MD Primary Care Provider [phone] Allergies Active Allergy Reactions Criticality Noted Date Comments Methylprednisolone Seizures High 09/12/2024 Medications No known medications Active Problems Problem Noted Date Diagnosed Date [...] placed on wait list for transfer to [facility]. Pending bed availability and notification of hospitalist service at [facility] and/or patient's general surgeon and [facility]. Pain management p.r.n. Lipid screening 06/18/2020 Chest [...] Medical History Medical History Date Comments Routine infant or child health check Normal Routine History [...] Date Smoking Tobacco: Never Smokeless Tobacco: Never [facility] Utilities Answer Date Recorded In the past 12 months has th e electric, gas, oil, or water company threatened to shut off services in your home? No 09/13/2024 Social Connection and Isolation Panel Answer Date Recorded In a typical week, how many times do you talk on the phone with family, friends, or neighbors? Three times a week 09/13/2024 How often do you get togethe r with friends or relatives? Three times a week 09/13/2024 How often do you attend [facility] or rastafarian services? Never 09/13/2024 Do you belong to any clubs o r organizations such as episcopalian groups, unions, fraternal or athletic groups, or [...] any time in the past 12 m [facility], were you homeless or living in a [...] on file Legal Sex Female 2:21 AM CORPORATE COMMUNICATIONS ASSOCIATE Gender Identity Not on file Sexual [...] (1 of 2 - 13+ 2-dose series) 2004 Hepatitis B Screening 08/12/2009 Regular Well Visit/Exam 18-64 08/12/2009 Pneumococcal vaccine <65 (1 of 2 - PCV) 08/12/2010 HPV Vaccines (1 - 3-dose SCDM series) 08/12/2018 Influenza Vaccine (#1) 2024 Medical Devices Implanted Type Area House Wirer Device Identifier Shelf Expiration Date Model / Serial / Lot Breast-08/30/19 25 Implanted:08/16 (Quantity not on file) Breast Bilateral: Breast Description:Ifeanyi Montes MD Insurance [facility] CHOICE PLUS [facility] HMO/PPO Address: [facility] [address] [place] [address] [place] [address] Care Teams Adjunct Professor Of Voice Relationship Specialty Start Date End Date Marbin Marc MD [address] [place] [address] PCP - General Obstetrics and Gynecology 06/11/20
--- OUTSIDE RECORDS SUMMARY | 2025-02-12 00:34 | XMS_ITS | Clinical Summary ---
Author Organization [facility] Address [address] [place] [address] Phone Care Team Providers Care Retail Wireless Associate Name Role Phone Unavailable Primary Care Provider [...] to affected area daily. 30 Gram 3 08/16/2024 Active Active Problems Problem Noted Date Diagnosed Date [...] Encounters Date Type Department Care Team Description 02/06/2025 External Device Data [facility] ABSTRACTION Provider, Abstract 01/08/2025 External Device Data [facility] Provider, Abstract 01/01/2025 External Device Data [facility] Provider, Abstract 12/18/2024 External Device Data [facility] Provider, Abstract 12/05/2024 External Device Data [facility] Provider, Abstract 12/04/2024 External Device Data [facility] Provider, Abstract 11/27/2024 External Device Data [facility] Provider, Abstract from Last 3 Months Social History Tobacco [...] (1 of 3 - 19+ 3-dose series) 07/18 HPV/Cotest (21-29) 08/12/2012 HPV VACCINES (1 - 3-dose SCDM series) 08/12/2018 HPV/Cotest (30-65) 08/12/2021 INFLUENZA VACCINE (#1) 2024 CERVICAL CANCER SCREENING 06/09/2026 PAP SMEAR 06/09/2026 06/09/2023 Insurance [facility] [id number] OPEN CHOICE PPO
--- OUTSIDE RECORDS SUMMARY | 2025-02-12 00:34 | XMS_ITS | Encounter Summary ---
Author Organization [facility] Address [address] [place] [address] Care Team Providers Care Plastic Dolls Mold Filler Name Role Phone Enoch Loyd MD Primary Care Provider [phone] Helen Garber APRN-BLOCK [facility]ON Primary Care Provider Encounter Details Date Type Department Care Team (Late st Contact Info) Description 12/27/2023 Lab Requisition [facility] - DermPath Lab [address] [place] [address] John Crenshaw MD [address] [place] [address] Social History Tobacco Use Types Packs/Day Years Used Date Smoking Tobacco: Never Smokeless Tobacco: Never Alcohol Use Standard Drinks/Week Comments No 0 (1 standard drink = 0.6 oz pur e alcohol) Comments Unknown Sex and Gender Information Value Date Recorded Sex Assigned at Not on file Legal Sex Female 5:39 AM MERCHANDISE FLOW ASSOCIATE Gender Identity Not on file Sexual Orientation Not on file documented as of this encounter Plan of Treatment Not on file documented as of this encounter Procedures Procedure Name Priority Date/Time Associated Diagnosis Comments DERMATOPATHOLOGY Routine 12/26/2023 12:0 0 AM CDT documented in this encounter Results * DERMATOPATHOLOGY (12/26/2023 12:00 AM CDT) Case Report Dermatopathology Report Case: [id number] Authorizing Provider: John Crenshaw MD Collected: 12/26/2023 12:00 AM Ordering Location: [facility] - Received: 12/27/2023 04:36 [...] characteristic determined by the Dermatopathology Laboratory at [facility], directed by Dr. Belle Prater. These tests need not be, and therefore are not, approved by the [place] Food and Drug Administration. The tests are used for clinical purposes. Billing Codes Specimen Charges Stain Charges 72759 1 [id number] 1 1 4 4:58 PM CDT DERMATOPATHOLOGY LABORATORY Embedded Images 4 4:58 PM CDT DERMATOPATHOLOGY LABORATORY Pathology/Cytolog y TISSUE SPECIMEN FROM SKIN / Unknown 12/26/2023 12/27/2023 4:36 PM CDT John Crenshaw MD LAB - PATHOLOGY/CYTOLOGY ORDERA BLES Final Result DERMATOPATHOLOGY LABORATORY [facility] - Department of Dermatology [facility] Medicine [address] [place] [address], [address] [phone] documented in this encounter Visit Diagnoses Not on filedocumented in this encounter Care Teams Plastic Dolls Mold Filler Relationship Specialty Start Date End Date Enoch Loyd MD [address] [facility] [address] [place] [address] PCP - General Internal Medicine 02/28/13 06/18/24 Helen Garber APRN-BLOCK MASON [address] [facility] [address] [place] [address] PCP - General Nurse Practitioner 06/19/24 documented as of this encounter
--- OUTSIDE RECORDS SUMMARY | 2025-02-12 00:34 | XMS_ITS | Data Portability ---
Author Organization 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 Patient will come back in a year unless there are new symptoms. [email or web address] Not available 05/22/2021 16:29:38 06/09/2023 06/09/2023 Annual gynecological exam performed. Patient will come back in a year unless there are new symptoms. Not available 06/09/2023 09:16:50 Plan of Treatment Reminders Order Date Submit Date Provider Last Modified By Organization Details Last Modified Time Details Appointments None recorded. Lab test, urine 2023 [facility], [facility] aPtricia Hernandez, [address], [place], [address], 4 09:45:37 TSH, serum or plasma [address] [facility] (Lab), [address], [place], [address], 4 01:19:47 prolactin, serum [address] [facility] (Lab), [address], [place], [address], 4 01:19:46 FSH (follicle-s timulating hormone), serum [address] [facility] (Lab), [address], [place], [address], 4 01:19:47 estradiol, serum [address] [facility] (Lab), [address] [place], [address], 4 01:19:45 testosteron e free/testos terone total, ratio, serum [address] [facility] (Lab), [address] [place], [address], 4 01:19:48 lh (luteinizin g hormone), serum [address] [facility] (Lab), [address] [place], [address], 4 01:19:46 HbA1c (hemoglobin A1c), blood [address] [facility] (Lab), [address] [place], [address], 4 01:19:47 Referral None recorded. Procedures None recorded. Surgeries None recorded. Imaging None recorded. Medication Orders Slynd 4 mg (28) tablet 2023 024 [id number], [address], [place], [address], 4 11:00:57 Diflucan 100 mg tablet 2021 022 [id number], [address], [place], [id number], 3 09:41:09 Patient TargetsNo targets recorded. Patient InstructionsNo instructions recorded. Reason for Referral None Reported. Results Created Date Observation Date Name Description Value Unit Range Abnormal Flag Note LastModifiedBy Organization Detail LastModifiedTime 07/30/19 23 07/29/2022 CT/GC (GRANT) , SWAB chlamydia trachomatis, PCR Negati ve negati ve Not Available [facility] (Lab) [address], [place], [address], 07/30/2022 18:58:48 07/30/19 23 07/29/2022 CT/GC (GRANT) , SWAB neisseria gonorrhoeae, PCR Negati ve negati ve Not Available [facility] (Lab) [address], [place], [address], 07/30/2022 18:58:48 07/30/19 23 07/29/2022 VAGIN ITIS/ VAGIN OSIS, DNA PROBE estela sp. detection, direct probe Negati ve negati ve Not Available [facility] (Lab) [address] [place], [address], 07/30/2022 18:58:49 07/30/19 23 07/29/2022 VAGIN ITIS/ VAGIN OSIS, DNA PROBE gardnerella vag. detection, direct probe Negati ve negati ve Not Available [facility] (Lab) [address], [place], [address], 07/30/2022 18:58:49 07/30/19 23 07/29/2022 VAGIN ITIS/ VAGIN OSIS, DNA PROBE trichomonas vag. detection, direct probe Negati ve negati ve Not Available [facility] (Lab) [address], [place], [address], 07/30/2022 18:58:49 06/09/19 24 06/09/2023 ESTRA DIOL estradiol 39.5 pg/mL This assay was perfo rmed using [employer] ratio n reage nts and test kits. Value s obtai kaelyn with other assay metho ds or kits canno t be used inter contreras eably . Femal e Estra diol Range s: Folli cular phase 12.4- 233 pg/mL Ovula tion phase 41.0- 398 pg/mL Lutea l phase 22.3- 341 pg/mL Postm enopa usal< 5-138 pg/mL Healt hy Pregn ant Women 1st Trime ster1 54-32 43 pg/mL 2nd Trime ster1 561-2 1280 pg/mL 3rd Trime ster8 525-> 32820 pg/mL Not Available [facility] (Lab) [address], [place], [address], 06/14/2023 01:19:45 06/09/19 24 06/09/2023 PROLA CTIN prolactin, total 15.30 NG/mL 4.79-2 3.30 This assay was perfo rmed using [employer] ratio [employer] reage nts and test kits. Value s obtai kaelyn with other assay metho ds or kits canno t be used inter contreras eay . Not Available [facility] (Lab) [address] [place], [address], 06/14/2023 01:19:46 06/09/19 24 06/09/2023 LH (LUTE NIZIN G HORMO NE) LH 16.2 mIU/m L This assay was perfo rmed using [employer] ratio [employer] reage nts and test kits. Value s obtai kaelyn with other assay metho ds or kits canno t be used inter contreras eay . Femal es Mid-F ollic ular: 2.4-1 2.6 mIU/m L Mid-C ycle: 14.0- 95.6 mIU/m L Mid-L uteal : 1.0-1 1.4 mIU/m L Postm enopa use: 7.7-5 8.5 mIU/m L Not Available [facility] (Lab) [address] [place], [address], 06/14/2023 01:19:46 06/09/19 24 06/09/2023 FSH FSH [...] use: 25.8- 134.8 mIU/m L Not Available [facility] (Lab) [address], [place], [address], 06/14/2023 01:19:47 06/09/19 24 06/09/2023 TSH, REFLE X FREE T4 TSH 2.70 uIU/m L 0.30-5 .33 Not Available [facility] (Lab) [address], [place], [address], 06/14/2023 01:19:47 06/09/19 24 06/09/2023 HEMOG LOBIN A1C hemoglobin A1C 5.1 % 0-5.6 The Ameri can [employer] gu[employer] Assoc iatio n recom mends that a prima ry goal of thera py daquan d be a HBA1C of < 7% and that physi cians shoul d reeva luate the treat ment regim en in patie nts with HBA1C value s consi stent ly > 8%. <5.7% Ny l 5.7 - 6.4% Incre ased risk for diabe gucci >=6.5 % Diagn ostic of diabe gucci <7.0% Goal of thera py >8.0% Actio n sugge sted Not Available [facility] (Lab) [address], [place], [address], 06/14/2023 01:19:47 06/09/1906/09/2023 TESTO STERO NE, FREE( DIALY SIS) AND TOTAL (LC/M S/MS) testosterone , total 192 NG/dL 2-45 high For addit ional infor dev pinto e refer to http: //chucho moses.que stdia gnost ics.c om/fa q/ Total Testo stero neLCM [facility] (This link is being provi ded for infor matio nal/ educa david l purpo ses only. ) This test was devel oped and its stevenson tical perfo rmanc e gina cteri stics have been deter mined by [facility] [place] [place]. It has not been clear ed or appro ty by the U.S. Food and Drug Admin istra tion. This assay has been valid ated pursu ant to the CLIA regul ation s and is used for clini shante purpo ses. Not Available [facility] (Lab) [address], [place], [address], 06/14/2023 01:19:48 06/09/1906/09/2023 TESTO STERO NE, FREE( DIALY SIS) AND TOTAL (LC/M S/MS) testosterone , free 23.0 pg/mL 0.1-6. 4 high This test was devel oped and its stevenson tical perfo rmanc e gina cteri stics have been deter mined by [facility] Te[facility]inder ls [place], [place]. It has not been clear ed or appro ty by the U.S. Food and Drug Admin istra tion. This assay has been valid ated pursu ant to the CLIA regul ation s and is used for clini shante purpo ses. Perfo rming Organ izati on Infor matio n: Site ID: AMD Name: [facility] Tejinder ls Insti tute Addre ss: [id number] [facility] [employer] [place], [place] Direc tor: Robbin Bosch MD PhD Not Available [facility] (Lab) [address], [place], [address], 06/14/2023 01:19:48 06/09/19 24 06/09/2023 IMAGE GUIDE D PAP AND HPV REGAR DLESS image guided Pap, HPV regardless of Pap result SEE RESULT S BELOW CASE REPOR T: Cytol ogy Gynec ologi shante Repor t Case: [id number] Autho rizin g Provi swati: Hilaria Britt, MARIA DEL CARMEN Garcia cted: 06/09 1124 Order ing Locat ion: [place] Patho logkerrie Recei ty: 06/10 0639 First Scree n: Aubrey López ed, CT Speci men: Scree santino Pap - Image d, Cervi x STATE MENT OF ADEQU ACY: Satis facto ry for evalu ation Trans forma tion zone compo nent prese nt FINAL DIAGN OSIS: Negat malik for Intra epith elial Lesio n or Everton kelsey (NIL) . Elect buzzjohanne mcelroy hamzah d by Aubrey López ed, CT on 2023 at 10:04 PM ----- ----- ----- ----- ----- ----- ----- ----- ----- ----- ----- ----- ----- ----- ----- ----- ----- ---- HPV RESUL TS: HPV mRNA E6/E7 : No HPV mRNA Detec michelle NOTE: This high risk HPV mRNA assay detec ts fourt een high- risk HPV types (16, 18, 31, 33, 35, 39, 45, 51, 52, 56, 58, 59, 66, 68) witho ut diffe renti ation . COMME NT: This speci men was revie wed by a Cytot echno logis t and/o r Patho logis t (as indic ated in this repor t) after evalu ation using the Thinp rep Imagi ng Syste m. CLINI [facility]TE INFOR MATIO N: Menst rual Statu s: LMP (if appli cable ): Clini shante Histo ry/Pr eviou s Pap: Type of Neopl saturnino (if appli cable ): Signi fican t Clini shante Findi ngs: Other Histo ry: Hormo juan m (if appli cable ): PAP EDUCA DAVID L NOTE: The Pap Test is a scree santino test with an inher ent false negat malik rate. Liqui d-bas ed sampl ing may decre ase, but will not elimi jose, false negat malik resul ts. A negat malik resul t does not precl ude the prese nce and/o r devel opmen t of disea se, since the prese nce of abnor mal cells in the sampl e depen ds on the locat ion of the lesio n and sampl ing techn ique. Mariella nued regul ar scree santino is the best metho d of cance r preve ntion . If repor michelle cytol ogic findi ng do not corre late with physi shante and/o r histo rical findi ngs, furth er inves tigat ion is recom jammie d, as clini jenn rouse nted. Not Available [facility] (Lab) [address], [place], [address], 06/14/2023 23:09:22 06/09/19 24 06/09/2023 pregn naun test, urine HCG negati ve Not Available [place] [address], [place], [address], 06/09/2023 09:42:24 Result Notes None recorded. Problems Name Problem SNOMED Code Status Onset Date Resolution Date Notes Provider Name and Address Organization Details Recorded Time Headache 84350278 Completed Rxed fioricet Nicki waller [facility] 12:04:24 Dyspnea 860808554 Completed NL holter Nicki waller [facility] 12:04:24 Obesity 837675801 Completed 37 week antenata l testing weekly Nicki waller [facility] 12:04:24 Ultrasou nd scan abnormal [id number] Completed cisterna magna borderli ne marya d at [facility] 11/26- They recommen d brain MRI to evaluate posterio r fossa- Let peds know! Nicki waller [facility] 1 12:04:24 Past pregnanc y history of postpart um hemorrha ge 182747395 Completed Nicki hicks [facility], [facility] 1 12:04:24 Anxiety 04463337 Completed sertrali ne Nicki hicks [facility], [facility] 1 12:04:24 Adult health examinat ion Completed 201405/14/2020 ROUTINE MEDICAL EXAM;Rec orded Elsewher e: No Locat ion: [facility] S ource: EHR [employer] Decorator laney: N Javier ce ID: 0001 Seymour lable Time: 01:00:00 PM Patricia Thomas [facility], [facility] 1 18:41:10 Speciali zed medical examinat ion Completed 201405/14/2020 Gynecolo gical Examinat ion;Wilner rded Elsewher e: No Locat ion: [facility] S ource: EHR [employer] Decor[employer] laney: Enoc Herrera ce ID: 0001 Seymour lable Time: 01:00:00 PM Patricia Allentz [facility], [facility] 1 18:43:35 Atypical squamous cells of undeterm ined signific ance on cervical Papanico laou smear [id number] Completed 201409/08/2021 Bridget Cruz [facility], [facility] 2 17:34:30 Screenin g for malignan t neoplasm of cervix Completed 201405/14/2020 Pap Smear;Pr actice ID: 0001 Patricia Thomas [facility], [facility] 18:43:20 Female infertil ity [id number] Completed 201405/14/2020 Female infertil ity;Wilner rded Elsewher e: No Locat ion: [facility] S ource: EHR [employer] Dec[employer] laney: N Robertati ce ID: 0001 Seymour lable Time: 01:30:00 PM Patricia waller [facility] 18:41:53 Dysfunct ional uterine bleeding Completed 201405/14/2020 Other disorder s of menstrua tion and other abnormal bleeding from female genital tract;Re corded Elsewher e: No Locat ion: [facility] S ource: [facility] laney: N Practi ce ID: 0001 Seymour lable Time: 03:30:00 PM Patrciia waller, [facility] 18:41:33 Female genital organ symptoms [id number] Completed 201405/14/2020 Pelvic pain;Rec orded Elsewher e: No Locat ion: [facility] S ource: [facility] laney: N Practi ce ID: 0001 Seymour lable Time: 09:30:00 AM Patricia waller, [facility] 18:41:50 Pregnanc y test positive 232326174 Completed 201405/14/2020 Pregnanc y examinat ion or test, positive result;R ecorded Elsewher e: No Locat ion: [facility] S ource: [facility] laney: N Practi ce ID: 0001 Seymour lable Time: 11:00:00 AM Patricia waller [facility] 18:43:05 Syphilis test finding 740230808 Completed 201405/14/2020 Encntr screen for infectio ns w sexl mode of transmis s;Practi ce ID: 0001 Patricia waller, [facility] 18:43:37 Secondar y amenorrh ea 544537732 Completed 201405/14/2020 Secondar y amenorrh ea;Pract ice ID: 0001 Patricia waller, [facility] 18:43:22 Pregnanc y detectio n examinat ion Completed 201405/14/2020 Encounte r for pregnanc y test, result positive ;Practic e ID: 0001 Patricia Allentz sridhar, [facility] 18:43:00 Generali zed abdomina l tenderne ss 306367946 Completed 201405/14/2020 Generali zed abdomina l tenderne ss;Pract ice ID: 0001 Patricia Thomas sridhar, [facility] 18:42:06 Abdomina l pain 21717789 Completed 201405/14/2020 Unspecif ied abdomina l pain;Pra ctice ID: 0001 Patricia Thomas null, [facility] 18:41:06 Gestatio n period, 9 weeks 732832 Completed 201405/14/2020 9 weeks gestatio n of pregnanc y;Practi ce ID: 0001 Patricia Thomas [facility], [facility] 18:42:42 Normal pregnanc y in multigra camille [id number] 41017 Completed 201505/14/2020 Encounte r for suprvsn of normal pregnanc y, first trimeste r;Practi ce ID: 0001 Patricia waller, [facility] 18:42:55 Pregnanc y, childbir th and puerperi um finding Completed 201505/14/2020 Oth pregnanc y related conditio ns, third trimeste r;Practi ce ID: 0001 Patricia waller, [facility] 18:41:24 Gestatio n period, 24 weeks 266667707 Completed 201505/14/2020 24 weeks gestatio n of pregnanc y;Practi ce ID: 0001 Patricia waller, [facility] 18:42:13 False labor before 37 complete d weeks of gestatio n [id number] 5956577 Completed 201505/14/2020 False labor before 37 complete d weeks of gest, second tri;Prac navi ID: 0001 Patricia Martha waller, [facility] 18:41:47 Gestatio n period, 25 weeks [id number] Completed 201505/14/2020 25 weeks gestatio n of pregnanc y;Practi ce ID: 0001 Patricia Martha [facility], [facility] 18:42:15 Clinical finding Completed 201512/23/2020 Gastro-e sophagea l reflux disease without esophagi tis;Prac navi ID: 0001 Марина Morgan MD [address], [place], [address], [facility] 11:42:18 Gestatio n period, 26 weeks [id number] Completed 201505/14/2020 26 weeks gestatio n of pregnanc y;Record ed Elsewher e: No Locat ion: [facility] S ource: EHR Pottery Decorator laney: N Practi ce ID: 0001 Seymour lable Time: 02:00:00 PM Patricia waller, [facility] 18:42:17 prematur e rupture of membrane s 513533994 Completed 201505/14/2020 Pretrm chela ROM, unsp time betw rupt and onst labr, 3rd tri;Prac navi ID: 0001 Patricia waller, [facility] 18:43:13 Gestatio n period, 29 weeks 67145161 Completed 201505/14/2020 29 weeks gestatio n of pregnanc y;Practi ce ID: 0001 Patricia waller, [facility] 18:42:24 Generali zed abdomina l pain 552340515 Completed 201505/14/2020 Generali zed abdomina l pain;Pra ctice ID: 0001 Patricia waller [facility] 18:42:04 Clinical finding Completed 201505/14/2020 state, incident al;Pract ice ID: 0001 Patricia Allentz [facility] 18:41:26 Finding of trunk structur e Completed 201505/14/2020 Oth diseases and conditio ns compl preg/chl dbrth;Pr actice ID: 0001 Patricia Thomas [facility] 18:43:44 Gestatio n period, 30 weeks [id number] Completed 201505/14/2020 30 weeks gestatio n of pregnanc y;Practi ce ID: 0001 Patricia Thomas sridhar [facility] 18:42:27 Gestatio n period, 32 weeks [id number] Completed 201505/14/2020 32 weeks gestatio n of pregnanc y;Practi ce ID: 0001 Patricia Thomas [facility] 18:42:29 Urinary tract infectio us disease 09540131 Completed 201505/14/2020 Urinary tract infectio n, site not specifie d;Practi ce ID: 0001 Patricia Thomas [facility] 18:43:46 Gestatio n period, 33 weeks [id number] Completed 201505/14/2020 33 weeks gestatio n of pregnanc y;Record ed Elsewher e: No Locat ion: [facility] S ource: EHR Pottery Decorator laney: N Practi ce ID: 0001 Seymour lable Time: 11:00:00 AM Patricia waller [facility] 18:42:31 Pregnanc y, childbir th and puerperi um finding Completed 201505/14/2020 Encntr for suprvsn of normal first preg, third trimeste r;Practi ce ID: 0001 Patricia waller, [facility] 18:43:[address] Concept Completed 201505/14/2020 Decrease d movement s, third trimeste r, unsp;Pra ctice ID: 0001 Patricia waller, [facility] 18:43:27 Gestatio n period, 35 weeks [id number] Completed 201505/14/2020 35 weeks gestatio n of pregnanc y;Practi ce ID: 0001 Patricia waller, [facility] 18:42:34 Gestatio n period, 36 weeks 67871062 Completed 201505/14/2020 36 weeks gestatio n of pregnanc y;Practi ce ID: 0001 Patricia waller, [facility] 18:42:36 Term pregnanc y delivere d 61542817 Completed 201505/14/2020 Encounte r for full-ter m uncompli cated delivery ;Practic e ID: 0001 Patricia waller, [facility] 18:43:39 Single live from singleto n pregnanc y 421509816 Completed 201505/14/2020 Single live ;Pr actice ID: 0001 Patricia waller, [facility] 18:43:24 Lochia finding Completed 201505/14/2020 Encounte r for routine postpart um follow-u p;Practi ce ID: 0001 Patricia waller, [facility] 18:42:[address] Concept Completed 201505/14/2020 Encntr for general adult medical exam w/o abnormal findings ;Practic e ID: 0001 Patricia waller, [facility] 18:43:30 Acute vaginiti s [id number] Completed 201605/14/2020 Acute vaginiti s;Practi ce ID: 0001 Patricia waller, [facility] 18:41:08 Procedur e by method Completed 201605/14/2020 Encounte r for ot general cnsl and advice on contrace ption;Pr actice ID: 0001 Patricia waller, [facility] 18:41:36 Pregnanc y test negative [id number] Completed 201605/14/2020 Encounte r for pregnanc y test, result negative ;Practic e ID: 0001 Patricia waller, [facility] 18:43:02 Uterine size for dates discrepa ncy Completed 201605/14/2020 Uterine size-joanie e discrepa ncy, first trimeste r;Practi ce ID: 0001 Patricia Thomas [facility], [facility] 18:43:49 Finding of contents of cervix 203296426 Completed 201605/14/2020 Weeks of gestatio n of pregnanc y not specifie d;Practi ce ID: 0001 Patricia Thomas sridhar, [facility] 18:41:56 Amenorrh ea [id number] Completed 201605/14/2020 Amenorrh ea, unspecif ied;Prac navi ID: 0001 Patricia Thomas sridhar, [facility] 18:41:12 Threaten ed miscarri age [id number] Completed 201605/14/2020 Threaten ed ;Practic e ID: 0001 Patricia waller, [facility] 18:43:41 Antenata l screenin g Completed 201605/14/2020 Encounte r for antenata l screenin g for nuchal transluc ency;Pra ctice ID: 0001 Patricia Thomasashleigh waller [facility] 18:41:15 Gestatio n period, 12 weeks [id number] Completed 201605/14/2020 12 weeks gestatio n of pregnanc y;Practi ce ID: 0001 Patricia Thomas [facility] 18:42:08 Evaluati on finding Completed 201605/14/2020 Hematuri a, unspecif ied;Prac navi ID: 0001 Patricia waller [facility] 18:41:42 Gestatio n period, 18 weeks [id number] Completed 201605/14/2020 18 weeks gestatio n of pregnanc y;Practi ce ID: 0001 Patricia Thomasashleigh waller [facility] 18:42:11 Antenata l screenin g for malforma tion Completed 201605/14/2020 Encounte r for antenata l screenin g for malforma tions;Pr actice ID: 0001 Patricia Thomasashleigh waller [facility] 18:41:18 Pelvic and perineal pain [id number] Completed 201705/14/2020 Pelvic and perineal pain;Rec orded Elsewher e: No Locat ion: [facility] S ource: EHR [employer] Dec[employer] laney: N Practi ce ID: 0001 Seymour lable Time: 08:45:00 AM Patricia waller [facility] 18:42:58 Pregnanc y, childbir th and puerperi um finding Completed 201705/14/2020 Oth pregnanc y related conditio ns, second trimeste r;Practi ce ID: 0001 Patricia waller, [facility] 18:41:22 Gestatio n period, 27 weeks [id number] Completed 201705/14/2020 27 weeks gestatio n of pregnanc y;Practi ce ID: 0001 Patricia waller, [facility] 18:42:20 Prematur e labor [id number] Completed 201705/14/2020 labor without delivery , third trimeste r;Practi ce ID: 0001 Patricia waller, [facility] 18:43:10 Gestatio n period, 28 weeks 57844581 Completed 201705/14/2020 28 weeks gestatio n of pregnanc y;Practi ce ID: 0001 Patricia waller, [facility] 18:42:22 Hemorrha gic complica tion of pregnanc y 506203261 Completed 201705/14/2020 Other hemorrha ge in early pregnanc y;Practi ce ID: 0001 Patricia waller, [facility] 18:42:48 False labor at or after 37 complete d weeks of gestatio n 734802772 Completed 201705/14/2020 False labor at or after 37 complete d weeks of gestatio n;Practi ce ID: 0001 Patricia waller, [facility] 18:41:45 Gestatio n period, 38 weeks 34771830 Completed 201705/14/2020 38 weeks gestatio n of pregnanc y;Practi ce ID: 0001 Patricia waller, [facility] 18:42:38 Gestatio n period, 39 weeks [id number] Completed 201705/14/2020 39 weeks gestatio n of pregnanc y;Robertati ce ID: 0001 Patricia Thomas sridhar, [facility] 18:42:40 Emotiona l state finding Completed 201705/14/2020 Anxiety depressi on;Recor ded Elsewher e: No [facility]: [facility] [employer] Dec[employer] laney: N Practi ce ID: 0001 Seymour lable Time: 09:45:00 AM Patricia Allenashleigh waller, [facility] 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 18:43:32 Insertio n of intraute rine contrace ptive device Completed 201705/14/2020 Encounte r for insertio n of intraute rine contrace ptive device;P ractice ID: 0001 Patricia Allenashleigh waller, [facility] 18:42:50 Clinical finding Completed 201707/17/2020 Presence of (intraut erine) contrace ptive device;R ecorded Elsewher e: No Locat ion: [facility] S ource: EHR Pottery Decorator laney: N Practi ce ID: 0001 Seymour lable Time: 02:30:00 PM Rebecca Jacob sridhar, [facility] 12:15:19 Finding of pattern of menstrua l cycle Completed 201705/14/2020 Excessiv e and frequent menstrua tion with irregula r cycle;Pr actice ID: [id number] Patricia waller [facility] 18:42:01 Contrace ptive sheath status [id number] Completed 201705/14/2020 Encounte r for routine checking of intraute rine contrace p dev;Prac navi ID: [id number] Patricia Thomas [facility], [facility] 18:41:30 Removal of intraute rine device Completed 201905/14/2020 Encounte r for removal of intraute rine contrace ptive device;P ractice ID: [id number] Patricia Thomas [facility], [facility] 18:43:16 Crohn's disease [id number] Completed 201909/08/2021 Bridget Cruz [facility], [facility] 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 12:04:24 Pregnanc y [id number] Completed 202001/08/2021 Nicki hicks [facility] 12:04:31 Problem Notes None recorded. Procedures Surgical History Date Name Laterality Status Provider Name and Address Organization Details Recorded Time 06/09/19 24 Date of Last Pap Smear completed Elizabeth Childers [facility] 06/09/2023 09:27:05 09/17/19 22 extraction of wisdom tooth completed Patricia Thomas [facility] 07/29/2022 09:41:59 04/18/19 15 excision of colon completed VANESSA Hinds [address], [place], [address], [facility] 06/09/2023 09:36:29 04/18/19 15 appendectomy completed Patricia Thomas [facility] 05/14/2020 19:43:41 Imaging Results None [...] Prescrib ed Elsewher e: No Locat ion: [facility] odify By: mayo case DateTime : 12/25/19 16 01:00:00 PM Not Available Not Available Not Available sertralin e 100 mg tablet 07/29 completed Not Available Not Available Not Available Diflucan 150 mg tablet take 1 tablet by oral route once 01/31 completed Prescrib ed Elsewher e: No [facility] odify By: tyler cuellar DateTime : 11/04/19 01:36:35 PM Not Available Not Available Not [...] Prescrib ed Elsewher e: No Locat ion: [facility] odify By: binta lópez DateTime : 02/05/20 11:42:21 AM Not Available Not Available Not Available Levora 0.15/30 (28) 0.15 mg-0.03 mg tablet take 1 tablet by oral route every day 10/04 completed Prescrib ed Elsewher e: No Locat ion: [facility] odify By: mayo case DateTime [...] Prescrib ed Elsewher e: No Locat ion: [facility] odify By: [email or web address] Encounte r DateTime : 02/03/20 18 08:15:00 AM Not Available Not Available Not Available Synthroid 25 mcg tablet take 1 tablet by oral route every day 03/31 completed Prescrib ed Elsewher e: No Locat ion: [facility] odify By: rd Redman r DateTime [...] Prescrib ed Elsewher e: No Locat ion: [facility] odify By: [email or web address] Encounte r DateTime : 05/10/19 18 08:45:00 AM Not Available Not Available Not Available Synthroid 88 mcg tablet take 1 tablet by oral route daily 09/16 completed Prescrib ed Elsewher e: No [facility] odify By: tyler matiasuntgeronimo DateTime : 04/28/19 18 02:09:28 PM Not Available Not Available Not Available Synthroid 75 mcg tablet take 1 tablet by oral route every day 02/17 completed Prescrib ed Elsewher e: No [facility] By: mayo Redman r DateTime : 06/10/19 16 01:13:40 PM Not Available Not Available Not Available Synthroid 50 mcg tablet take 1 tablet by oral route every day 04/28 completed Prescrib ed Elsewher e: No Locat ion: [facility] odify By: jlgreen Lizzettete r DateTime : 03/31/20 17 11:35:05 AM [...] Elsewher e: No Locat ion: [facility] odify By: binta lópez DateTime : 04/25/19 10:15:00 AM Not Available Not Available Not Available epinephri ne 0.3 mg/0.3 mL injection , auto-inje ctor USE IM UTD 07/21 completed Not Available Not Available Not Available Vitamin D2 1,250 mcg (50,000 unit) capsule take 1 capsule by oral route every week 02/17 completed Prescrib ed Elsewher e: No Locat ion: [facility] odify By: mayo Redman r DateTime [...] Elsewher e: No Locat ion: [facility] odify By: mayo Redman r DateTime : 11/09/19 15 04:15:00 PM Not Available Not Available Not Available iron 18 mg tablet 02/17 completed Prescrib ed Elsewher e: Yes Loca tion: [facility] odify By: mayo Redman r DateTime : 08/20/19 15 01:00:00 PM Not Available Not Available Not Available azithromy arian 500 mg tablet take 2 tablet by oral route once 02/17 completed Prescrib ed Elsewher e: No [facility] By: mayo Redman r [...] Elsewher e: No Locat ion: [facility] odify By: mayo Redman r DateTime : 09/12/19 16 08:30:00 AM Not Available Not Available Not Available Prevacid 24Hr 15 mg capsule,d elayed release take 1 capsule by oral route every day before a meal 02/17 completed Prescrib ed Elsewher e: No Locat ion: [facility] odify By: mayo Redman r DateTime : 08/11/19 16 02:00:00 PM Not Available Not Available Not Available butalbita l-acetami nophen-ca ffeine 50 mg-300 mg-40 mg capsule Take 1 capsule every 4 hours by oral route. 01/07 completed Not Available Not Available Not Available THREADER-PNV-DH A 28 mg iron-1 mg-200 mg capsule take 1 capsule by oral route every day 09/16 completed Prescrib ed Elsewher e: No [facility] odify By: tyler cuellar DateTime : 02/15/20 17 02:35:03 PM Not [...] Body mass index (BMI) Body weight Systolic And Diastolic Provider Name and Address Organization Details Last Updated DateTime 04/29/2021 160.02 cm 36.1 kg/m2 50245.84 g 132/84 mm[Hg] Rebecca Jacob [facility] 04/29/2021 10:43:08 Date Recorded Body height Provider Name an d Address Organization Details Last Updated DateTime 06/04/2021 160.02 cm Marbin Marc MD [address], [place], [address], [facility] 06/04/2021 17:41:06 Date Recorded Body height Body mass index (BMI) Body weight Systolic And Diastolic Provider Name and Address Organization Details Last Updated DateTime 06/09/2023 160.02 cm 38.4 kg/m2 03297.54 g 117/78 mm[Hg] Elizabeth [facility] 06/09/2023 09:25:33 Date Recorded Body height Body mass index (BMI) Body weight Systolic And Diastolic Provider Name and Address Organization Details Last Updated DateTime 06/22/2023 160.02 cm 39 kg/m2 50193.32 g 133/76 mm[Hg] Elizabeth [facility] 06/22/2023 10:06:55 Date Recorded Body height Body mass index (BMI) Body weight Systolic And Diastolic Provider Name and Address Organization Details Last Updated DateTime 07/29/2022 160.02 cm 35.8 kg/m2 55398.66 g 117/82 mm[Hg] Patricia Thomas [facility] 07/29/2022 09:41:02 Social History Question Answer Notes LastModified by Organizat ion Details LastModified Time Tobacco Smoking Status Never Smoker Agata waller, [facility] 10/12/2019 16:43:32 If You Are , What Was Your Level Of Alcohol Consumption Prior To ? None [email or web address] Information not available 05/14/2020 Are You Blind Or Do You Have Difficulty Seeing? No [email or web address] Information n ot available 10/21/2020 What Is Your Level Of Caffeine Consumption? Occasional Information not available 05/14/2020 In The 14 Days Before Symptom Onset, Have You Had Close Contact With A Laboratory-confirm ed COVID-19 While That Case Was Ill? No [email or web address] Information n ot available 10/21/2020 In The 14 Days Before Symptom Onset, Have You Had Close Contact With A Person Who Is Under Investigation For COVID-19 While That Person Was Ill? No [email or web address] Information not available 10/21/2020 Have You Been To An Area Known To Be High Risk For COVID-19? No [email or web address] Information not available 10/21/2020 Are You Deaf Or Do You Have Serious Difficulty Hearing? No [email or web address] Information not available 10/21/2020 What Type Of Diet Are You Following? REGULAR Information n ot available 10/21/2020 Do You Use Your Seat Belt Or Car Seat Routinely? Yes [email or web address] Information not available 10/21/2020 Are You Sexually Active? Yes Information not available 06/09/2023 Do You Have Smoke And Carbon Monoxide Detectors In Your Home? Yes [email or web address] Information not available 10/21/2020 Do You Use Sunscreen Routinely? Yes [email or web address] Information not available 10/21/2020 Has Tobacco Cessation Counseling Been Provided? No [email or web address] Information not available 05/14/2020 Do You Have Difficulty Walking Or Climbing Stairs? No [email or web address] Information not available 07/29/2022 Sex: Unknown Functional Status Question Answer Note LastModified by Organizat ion Details LastModified Time Do you use any illicit or recreational drugs? No [email or web address] Information not available 05/14/2020 Do you or have you ever used any other forms of tobacco or nicotine? No [email or web address] Information not available 05/14/2020 What is your level of alcohol consumption? None [email or web address] Information not available 05/14/2020 Are you able to walk independently without assistance or assistive devices? YESWOREST [email or web address] Information not available 10/21/2020 Are you able to care for yourself independently? Yes [email or web address] Information not available 07/29/2022 Do you have difficulty dressing, bathing, grooming, or toileting? No Information not available 07/29/2022 What is your exercise level? Moderate Information not available 10/21/2020 Mental Status Question Answer Note LastModified by Organization D etails LastModified Time Do you feel stressed (tense, restless, nervous, or anxious, or unable to sleep at night)? [id number] Information not available 10/21/2020 Family History Relationship [...] Diagnosis SNOMED-CT Code Diagnosis ICD10 Code Diagnosis IMO Codes Diagnosis Note [address] [address],[place] [address] 08/06/2019 10:35:26 08/07/2019 13:38:12 Vaginitis 60770711 N76.0 Discussed use of mild soap like dove or ivory, cotton underwear w/out dye, hypoallerg enic detergent, wipe from front to back, avoid tub baths, keep perineum clean and dry, d/c use of baby wipes. Encouraged daily intake of yogurt or womens health probiotic. Internal and external affirm collected along with STD culture per patient request. 8141 Melodie Jenkins CNM [facility] [address],[place] [address] 10/02/2019 11:06:56 10/03/2019 09:16:56 test positive 068232702 Z32.01 9729 Marbin Marc MD [facility] [address],[place] [address] 10/12/2019 16:08:09 10/15/2019 14:20:15 test positive 947910624 Z32.01 This patient is a 29-year-ol d [...] the ultrasound . 9855 Marbin Marc MD [facility] [address],[place] [address] 10/15/2019 13:24:40 10/15/2019 14:36:23 screening 013224197 Z36.9 This patient is a 29-year-ol d female who presents for follow-up onearly gestation. Herpregnan cy was of unknown viability. Ultrasound was performed today. Intrauteri ne gestationa l sac and yolk sac were observed.T his is fairly consistent with her suspectedg estational age.She has no complaints . No cramping or bleeding. She will follow-up in 2 weeks. [id number] Marbin Marc MD [facility] [address],[place] [address] 10/15/2019 13:25:12 10/15/2019 17:30:58 Uncertain viability of 151607796 O36.80X9 Z3A.01 [id number] Marbin Marc MD [facility] [address],[place] [address] 10/29/2019 15:24:56 10/29/2019 16:21:39 Uncertain viability of 192966660 O36.80X9 Z3A.01 [id number] Marbin Marc MD [facility] [address],[place] [address] 10/29/2019 15:25:16 10/29/2019 17:40:59 Crohn's disease 87559395 K50.90 This patient is a 29-year-ol d [...] aspects of care. We discussed monitoring / testing. e return in 5 weeks for initial OB. We talked about genetic screening. [id number] Melodie Jenkins [facility] [address],[place] [address] 11/05/2019 17:25:37 11/05/2019 22:15:29 test positive 522958837 Z32.01 Risk factors addressed: Tobacco Cessation, Safe [...] annual well woman examinatio n and address [facility] . [address] Shanita Negrete [facility] [address] [address] 05/14/2020 16:55:26 05/20/2020 12:21:48 Amenorrhea 60424639 N91.2 [id number] Marbin Marc MD [facility] [address] [address] 05/14/2020 16:49:09 05/14/2020 17:28:37 screening 415650146 Z36.87 This patient is a 29-year-ol d female who presents for follow-up onearly gestation. Herpregnan cy was of unknown viability. Ultrasound was performed today. Intrauteri ne gestationa l sac and yolk sac were observed.T his is fairly consistent with her suspectedg estational age.She has no complaints . No cramping or bleeding. She will follow-up in 2 weeks. [address]82 Marbin Marc MD [facility] [address],[place] [address] 06/10/2020 14:41:22 06/10/2020 16:08:51 Tachycardia 3050248 R00.0 This patient is a 29-year-ol d [...] this patient s visit, including available hand forge hand upon arrive, temperatur e check and being asked a series of screening questions. All staff wore face coverings during this encounter, as well as provided additional cleaning and sanitizing of all surfaces, including countertop s, pens, chairs, door handles, light switches, etc, prior to and following the patient s visit. Orthostati c hypotension 16206662 I95.1 Headache 45838868 R51.9 [id number] Marbin Marc MD [facility] [address] [address] 06/23/2020 09:35:05 06/23/2020 10:17:22 screening 695274183 Z36.82 This patient is a 29-year-ol d female who presents for follow-up onearly gestation. Herpregnan cy was of unknown viability. Ultrasound was performed today. Intrauteri ne gestationa l sac and yolk sac were observed.T his is fairly consistent with her suspectedg estational age.She has no complaints . No cramping or bleeding. She will follow-up in 2 weeks. [id number] Marbin Marc MD [facility] [address] [address] 06/23/2020 09:35:51 06/23/2020 13:22:37 Routine care 815831067 Z34.91 Headache 85657998 R51.9 [id number] Melodie Jenkins CNM [facility] [address] [address] 07/21/2020 11:02:28 07/21/2020 12:21:49 Routine care 839061046 Z34.92 97899 Melodie Jenkins [facility] [address],[place] [address] 08/12/2020 12:15:27 08/12/2020 12:42:58 Urinary tract infectious disease 52626254 N39.0 58154 Melodie Jenkins [facility] [address],[place] [address] 08/18/2020 13:55:21 08/18/2020 15:22:57 Routine care 242403372 Z34.92 [id number] Marbin Marc MD [facility] [address],[place] [address] 08/18/2020 13:54:38 08/18/2020 15:05:57 screening for malformation 626072212 Z36.3 [id number] Melodie Jenkins [facility] [address],[place] [address] 09/22/2020 13:55:52 09/22/2020 15:22:24 Routine care 004966556 Z34.92 [id number] Marbin Marc MD [facility] [address],[place] [address] 09/22/2020 13:54:28 09/22/2020 14:56:16 Excessive growth affecting management of mother 56202369 O36.62X0 Z3A.24 [id number] Melodie Jenkins [facility] [address],[place] [address] 10/21/2020 13:40:04 10/21/2020 16:44:29 Routine care 284267580 Z34.92 [id number] Marbin Marc MD [facility] [address],[place] [address] 11/01/2020 12:36:48 11/01/2020 13:17:16 Routine care 904828078 Z34.91 Crohn's disease 90687726 K50.90 This patient is a 29-year-ol d [...] initial OB. [facility]. [address] [facility] [address],[place] [address] 11/21/2020 14:02:00 11/21/2020 16:40:13 Routine care 819883153 Z34.93 [id number] Marbin Marc MD [facility] [address],[place] [address] 12/02/2020 10:49:04 12/02/2020 12:03:22 Routine care 514295769 Z34.91 Hemorrhoids 08912860 K64 .9 60095 Melodie Jenkins [facility] [address],[place] [address] 12/16/2020 09:47:06 12/16/2020 23:14:17 Routine care 828304610 Z34.92 [id number] Marbin Marc MD [facility] [address],[place] [address] 12/16/2020 09:47:41 12/16/2020 11:48:06 Maternal obesity complicating , childbirth and the puerperium, antepartum 1397407537 07 O99.213 35120 Marbin Marc MD [facility] [address],[place] [address] 12/16/2020 09:49:49 12/16/2020 11:48:32 Pre-existing maternal disease complicating 6478102867 6106 O99.891 [id number] Marbin Marc MD [facility] [address],[place] [address] 12/19/2020 11:17:29 12/19/2020 13:08:12 Maternal obesity complicating , childbirth and the puerperium, antepartum 7987665401 07 O99.213 53386 Marbin Marc MD [facility] [address],[place] [address] 12/19/2020 12:47:08 12/19/2020 14:07:49 Abnormal heart rate 126148591 O36.8330 Z3A.37 [id number] Марина Morgan MD [facility] [address],[place] [address] 12/23/2020 09:38:51 12/23/2020 10:40:59 Pre-existing maternal disease complicating 4402945646 6106 O99.213 Z3A.38 22994 Марина Morgan MD [facility] [address],[place] [address] 12/23/2020 09:39:10 12/23/2020 12:22:11 Maternal obesity complicating , childbirth and the puerperium, antepartum 9434883366 07 O99.213 33570 Марина Morgan MD [facility] [address],[place] [address] 12/23/2020 09:39:23 12/23/2020 12:52:32 Routine care 937502197 Z34.83 [id number] Melodie Jenkins [facility] [address],[place] [address] 12/29/2020 14:28:49 12/29/2020 15:50:41 Routine care 929157320 Z34.92 [id number] Marbin Marc MD [facility] [address],[place] [address] 12/29/2020 13:29:42 12/29/2020 14:28:54 Maternal obesity complicating , childbirth and the puerperium, antepartum 6398222938 07 O99.213 [id number] Marbin Marc MD [facility] [address],[place] [address] 12/29/2020 14:58:47 12/29/2020 16:29:49 Maternal obesity complicating , childbirth and the puerperium, antepartum 3577727565 07 O99.213 [id number] [facility] [address],[place] [address] 01/07/2021 11:52:57 01/07/2021 14:56:14 -induced hypertension 1312341042 9100 O13.9 PIH precaution s given. RTC for routine post visit. Pt desires tubal ligation. Discussed procedure risks and benefits. Will send to surgery scheduling . 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 Has only been taking 50mg and feels it works well for her. Female sterilization 608 58464 Z30.2 23163 Marbin Marc MD [facility] [address],[place] [address] 01/19/2021 09:46:40 01/19/2021 10:50:08 Infection of uterus 402431651 N71.9 This patient is a 30-year-ol d [...] up in 5 days for routine follow-up. [id number] Melodie Jenkins CNM [facility] [address],[place] [address] 01/26/2021 11:56:15 01/27/2021 19:45:23 state 29103994 Z39.2 Continue to watch for signs/symp toms [...] paper copy of today's plan if desired [id number] Marbin Marc MD [facility] [address],[place] [address] 02/10/2021 15:49:50 02/10/2021 17:06:15 Female sterilization 93467706 Z30.2 this patient is a 30-year-ol d female who desires female sterilizat ion. We have agreed to perform laparoscop ic bilateral salpingect natasha. She understand s the risks, benefits, and alternativ es. She has completed the informed consent process and is ready to proceed. [id number] Melodie Jenkins CNM [facility] [address],[place] [address] 02/24/2021 14:20:01 02/24/2021 15:30:03 Contraception care management 340001591 Z30.9 Decided against tubal d/t chrons. Pt would like to start p.o.p. Discussed importance of taking at the same time every day. Also informed that it may not be as effective as estrogen containing pills. RTC in 3 months for wwe with med check. [id number] Melodie Jenkins CNM [facility] [address],[place] [address] 04/29/2021 10:35:14 04/30/2021 17:08:00 Pain of breast 84368960 N64.4 Due to descriptio n of pain being pins and needles will treat for yeast with a 2 week round of diflucan. If no resolution of symptoms will need to schedule imaging. Pt will return in 1-2 weeks for follow up. [id number] Marbin Marc MD [facility] [address],[place] [address] 06/04/2021 11:21:03 06/04/2021 17:42:14 [id number] [facility] [address] [address] 07/29/2022 09:30:44 07/29/2022 10:04:29 Vaginitis 01086521 N76.0 Discussed use of mild soap like dove or ivory, cotton underwear w/out dye, hypoallerg enic detergent, wipe from front to back, avoid tub baths, keep perineum clean and dry, d/c use of baby wipes. Encouraged daily intake of yogurt or womens health probiotic. Internal and external affirm collected along with STD culture per patient request. [id number] VANESSA Hinds [facility] [address],[facility] [place] [address] 06/09/2023 09:14:02 06/09/2023 10:03:07 Gynecologic examination 27737898 Z01.419 WWEpap updateddec lined STI screeningr outine [...] of today's plan if desired. Irregular periods 010690 07 N92.6 UPT (-)labs orderedgiv en this is the first occurrence , continue to track cycles and return if no period for 3 months. Discussed importance of periods every 3 months for endometria l protection . [id number] VANESSA Hinds [facility] [address] [address] 06/22/2023 10:03:28 06/22/2023 11:08:01 Contraception care management 632253279 Z30.9 Discussed all control options in great [...] Disla Member ID Guarantor Name 06/22/2023 1 [place] [facility] Agnieszka Riddle [id number] Agnieszka Sykes 11/05/2019 SLIDING FEE SCHEDULE - DISCOUNT Agnieszka Sykes 06/22/2023 1 [place] [facility] Agnieszka Riddle [id number] Agnisezka Sykes 06/22/2023 2 [facility] PRIOR TO 10/16/2020 (MEDICAID REPLACEMENT - HMO) Agnieszka Riddle [id number] Agnieszka Sykes 06/22/2023 1 [facility] Agnieszka Riddle [id number] Agnieszka Sykes 06/22/2023 1 [facility] Agnieszka Riddle [id number] Agnieszka Sykes 06/22/2023 2 [place] [facility] Agnieszka Riddle [id number] Agnieszka Sykes 06/20/2023 1 [facility] [id number] Marlo Sykes [id number] Agnieszka Sykes 06/22/2023 2 [facility] PRIOR TO 10/16/2020 (MEDICAID REPLACEMENT - HMO) Agnieszka Sykes [id number] Agnieszka Sykes 06/22/2023 2 [facility] ON OR AFTER 10/16/20 (MEDICAID REPLACEMENT - HMO) Agnieszka Sykes [id number] Agnieszka Sykes Notes Date Note Type Note Provider Name and Address Organization Details Recorded Time 2 text/html ROS as noted in the HPI Pain in left breast while . Usually starts a few minutes into the feeding. Feels like pins and needles. Very sharp. No lumps, no redness, no tender areas. No fever or flu like symptoms. Melodie waller [facility] 05/18/2021 18:45:43 2 text/html Annual GYNReported by Patient Marbin Marc MD [address], [place], [address], [facility] 06/04/2021 17:42:13 3 text/html Vaginal/Vulvar ProblemReported by PatientWatery discharge, occasional odor, occasional itching Melodie waller [facility] 07/29/2022 09:54:27 4 text/html Annual GYNReported by PatientGenitourinary symptomsFor menstrual cycle, patient reportsnormal menses. For urinary symptoms, patient reportsno hematuriaandno incontinence. For vulva, patient reportsno genital lesion. For vagina, patient reportsnormal vaginal discharge.Breast symptomsFor breast, patient reportsno breast pain,no breast lump, andno nipple discharge.ContraceptionFo r current contraception, (withdrawal).Endocrine symptomsFor sexual complaints, patient reportsno sexual complaints,no pain during intercourse, andnormal libido. For menopausal symptoms, patient reportsno menopausal symptomsandnormal vaginal lubrication.Psychological symptomsFor psychological symptoms, patient reportsno depression,no anxiety, andno pmdd.Preventative measuresFor preventive measures, patient reportsencourage self breast examination,encourage regular exercise,encourage no tobacco use, andencourage regular mammograms starting age 40.h/o abnormal pap in 2014 - no procedures requiredlast pap 04/2019 - normalLMP 04/08/23 - first time she has skipped a month VANESSA [address]s [address], [place], [address], [facility] 06/09/2023 10:02:07 4 text/html 32yo [id number] for BC consultwould like BC to prevent and period regulationdenies h/o DVT/PE, HTN, Stroke/MO, cancer, liver disease, or migraine with auramedical hx: Crohn's Hilaria Britt, WHMARIA DEL CARMEN [address], [place], [address], [facility] 06/22/2023 11:01:35 OBGyn Episode Ob Episode Information Episode Created Date Number of Fetuses Patient Bloodtype Patient rh Status Prepregnancy Weight lbs Domestic Partner Domestic Partner Phone Father Name Calibration Technician Status 08/06/19 1 CLOSED Fetus Data First [...] Tubal Sterilization Discharge Date Comments 6 39.4 [place] Discharge Information Feeding Method Contraceptive Method Maternal HG B and HCT Levels Ob Episode Information Episode Created Date Number of Fetuses Patient Bloodtype Patient rh Status Prepregnancy Weight lbs Domestic Partner Domestic Partner Phone Father Name Calibration Technician Status 08/06/19 20 1 CLOSED Fetus Data [...] Domestic Partner Domestic Partner Phone Father Name Calibration Technician Status 08/06/19 20 1 CLOSED Fetus Data [...] Domestic Partner Domestic Partner Phone Father Name Calibration Technician Status 06/24/19 21 1 CLOSED Fetus Data [...] Domestic Partner Domestic Partner Phone Father Name Calibration Technician Status 06/24/19 21 1 O Positive 207 [...] Date Resolution Snomed Code Not e Obesity [id number] 37 week an tenatal testing weekly Past history of hemorrhage 728960984 Headache MEDICATION [id number] Rxed raji icet Dyspnea [id number] NL holter Crohn's disease 10/29/2019 [id number] s/p bowel resection, no meds - MFM- 08/20 u/s & OV- 08/15 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 Anxiety 86394600 sertraline Candelario Calculation Initial Candelario Date Initial [...] Weight in lbs Pre/Post Dialysis Refused Weight 208.588944495863 BP Diastolic BP Location Tested BP Systolic [...] Weight in lbs Pre/Post Dialysis Refused Weight 203.91319734953 BP Diastolic BP Location Tested BP Systolic [...] Weight in lbs Pre/Post Dialysis Refused Weight 203.42934527476 BP Diastolic BP Location Tested BP Systolic [...] Weight in lbs Pre/Post Dialysis Refused Weight 208.067242159056 BP Diastolic BP Location Tested BP Systolic [...] Weight in lbs Pre/Post Dialysis Refused Weight 207.345326888576 BP Diastolic BP Location Tested BP Systolic [...] Weight in lbs Pre/Post Dialysis Refused Weight 211.409895196529 BP Diastolic BP Location Tested BP Systolic BP Type 82 128 Fetus Heart Rate Present A 145 Fetus Movement A Yes Comments 2+glucose, just ate, Flowsheet Date 11/21/2020 Donahue Score Blood Edema Fundus Height Fundus Units Glucose Ketones Leukocytes Nitrite Labor Signs Protein Cervic Dilation Cervic Effacement Cervic Station neg trace trace Type Weight in lbs Pre/Post Dialysis Refused Weight 211.346178835909 BP Diastolic BP Location Tested BP Systolic BP Type 85 133 Fetus Heart Rate Present Fetus Movement A Yes Comments patient states that having p ain, contractions, back pain, cramping, discharge, swelling, nausea and vomiting. feeling better with increase in zoloft anxiety still a little worse in the evening, precautions reviewed f/u 2 weeksEPDS 13- EDGAR [place] Flowsheet Date 12/02/2020 Donahue Score Blood Edema Fundus Height Fundus Units Glucose Ketones Leukocytes Nitrite Labor Signs Protein Cervic Dilation Cervic Effacement Cervic Station 35 trace 0cm -3 Type Weight in lbs Pre/Post Dialysis Refused Weight 215.115812433656 BP Diastolic BP Location Tested BP Systolic [...] Weight in lbs Pre/Post Dialysis Refused Weight 213.387256140723 BP Diastolic BP Location Tested BP Systolic [...] Weight in lbs Pre/Post Dialysis Refused Weight 216.000246663683 BP Diastolic BP Location Tested BP Systolic [...] Weight in lbs Pre/Post Dialysis Refused Weight 218.580559692773 BP Diastolic BP Location Tested BP Systolic [...] Weight in lbs Pre/Post Dialysis Refused Weight 200.604486229024 BP Diastolic BP Location Tested BP Systolic [...] Estim ated Date of Delivery false Thalassemia (Setswana, Angolan, Mediterranean, Or Background): MCV < 80 false Neural Tube Defect (Meningomyelocele, Spina Bifi da, Or Anencephaly) false Congenital Heart Defect false Down Syndrome false Andrea-Sachs (eg, Mormon, Cajun, Iraqi-[place]) f alse Renetta Disease false Sickle Cell Disease Or Trait () false Hemophilia Or Other Blood Disorders false Muscular Dystrophy false Cystic Fibrosis false Nelson's Chorea false Intellectual Disability/Autism false If Yes, [...] Induce d Regional-Ep idural 38.6 false Melodie JenkinsM GHTN Discharge Information Feeding Method Contraceptive Method Maternal HG B and HCT Levels
--- OUTSIDE RECORDS SUMMARY | 2025-02-12 00:34 | XMS_ITS | Encounter Summary ---
Author Organization [facility] Address [address] [place] [address] Care Team Providers Care Podiatric Physician Name Role Phone Enoch Loyd MD Primary Care Provider [phone] Helen Garber APRN-STATION MECHANIC HELPER Primary Care Provider Encounter Details Date Type Department Care Team (Late st Contact Info) Description 03/30/2013 Telephone [facility] Women's Health Maternal & Care [address] [place] [id number] Andreina Irving, [facility] [place] [address] [place] [address] [phone] Social History Tobacco Use Types Packs/Day Years Used Date Smoking Tobacco: Never Smokeless Tobacco: Never Alcohol Use Standard Drinks/Week Comments No 0 (1 standard drink = 0.6 oz pur e alcohol) Comments Yes Sex and Gender Information Value Date Recorded Sex Assigned at Not on file 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
[2025-02-12] MEDS: LACTATED RINGERS 1,000 ML 30 ML IV CONT ×2 (06:45→09:07)
--- NOTE | 2025-02-12 07:02 | P.OP_ITS ---
Procedure Note - Detailed Date of Procedure 02/12/25 Pre-op Diagnosis micromastia Post-op Diagnosis Same Procedure Performed 1. Bilateral augmentation mammaplasty 2. Revision bilateral retained areola Surgeon Ifeanyi Lamb MD Anesthesia General Indications History of hidradenitis and subsequent infection. Currently no active hidradenitis (being activly managed by dermatology). Findings Bilateral Manjinder Snider SoftTouch 520cc Right: REF# [id number] SN: [id number] Left: REF# [id number] SN: [id number] Description of Procedure She is here today for the above. Previously and again today the risks, benefits, alternatives were discussed in extensive detail. I wanted her to be very realistic about the risks involved as well as expectations. Given her history this has been discussed in extensive detail. We discussed aftercare and what to monitor for. Made sure answered all of her questions to her satisfaction today and consent was obtained. Marked in the preoperative holding area with their verification. The patient was taken to the operating room placed supine on the operating table. Anesthesia was provided by anesthesiology. A surgical time-out was taken. We cleansed the skin and 1% lidocaine and 0.25% Marcaine with epinephrine was used anesthetize as a field block. She was prepped and draped in a standard sterile fashion. Tegaderm nipple Blackwell were placed. A 15 blade used to make an incision along the inframammary fold. Dissection was continued at 45 degree angle until the chest wall as identified. I elevated a subfascial pocket in the appropriate dimensions based on our preop erative planning for the implant. Most of the previous pocket had closed. I then copiously irrigated with saline solution and verified a strict hemostasis. Irrigated with Phase One and allowed adequate time for effect. Next the use a triple antibiotic and Betadine containing solution to irrigate the pocket. I washed my gloves with the triple antibiotic and Betadine solution. We washed the implant immediately upon opening it with this solution and only opened it when we needed it. I used implant funnel and no-touch technique. The implant was introduced into the pocket using the funnel. Having verified positioning of the implant this was closed using 2-0 PDS followed by 3-0 Monocryl in a running subcuticular 4-0 Monocryl followed by tissue glue. In a sitting position the NAC was marked at 42mm. Placed supine. NAC marked at 42mm. 10 blade was used to excise the retained areola. This was closed with 3-0 Monocryl, 4-0 running subcuticular Monocryl, 5-0 plain gut suture as needed, and Brijjit's. Fluffs and surgical bra were placed. Patient was awoke and taken to PACU without difficulty. All instrument sponge counts were correct at the end of the case. Estimated Blood Loss 20 Drains No Packing No Pathology None sent Complications No immediate complications Condition Stable Disposition PACU
--- NOTE | 2025-02-12 07:02 | WPDHPUPDATE1 ---
History and Physical Update Update Date/Time: 02/12/25 07:02 History and Physical has been reviewed, including an updated exam of the patient. There are NO changes in the patient's condition. Risks, benefits, and alternatives have been discussed and questions answered. Patient agrees to proceed with procedure.
[2025-02-12] MEDS: SCOPOLAMINE 1 MG PATCH 1 PATCH TRANSDERM (07:03)
--- NOTE | 2025-02-12 07:03 | WPDANESEPPF ---
Anes - Initial Pre Proc Eval Procedure: Operation Date: 02/12/25 07:30 Proposed Procedures p Bilateral Breast Augmentation, - Ifeanyi Lamb MD s Right Areola Nipple Revision - Ifeanyi Lamb MD Date/Time: 02/12/25 07:03 Surgeon: Ifeanyi Lamb MD Pre Op Diagnosis: micromastia Patient Data Age: 34 Gender: F Height: 1.63 m Weight: 94.1 kg Allergies Allergy/AdvReac Type Severity Reaction Status Date / Time No Known Allergies Allergy Verified 01/30/25 10:48 Home Medications ?Medication ?Instructions ?Recorded ?Confirmed ?Type doxycycline hyclate 100 mg tablet 100 mg PO Q12H #20 tabs 08/09/24 01/30/25 Rx Patient hx anesthesia problems: post op nausea/vomiting Family hx anesthesia problems: none Results Review: All pre-operative results and documents have been reviewed as part of the pre-operative evaluation. [facility] Past Medical History Medical History Hidradenitis suppurativa Headache Edema of breast Swelling of breast Right Breast pain, right Surgical wound, non healing Frequent loose stools Irregular periods Elevated liver enzymes Anemia TATO on CPAP Chest pain BMI 34.0-34.9,adult Stomach ulcer History of blood transfusion TATO (obstructive sleep apnea) Hernia Shortness of Breath Fatigue Increased frequency of urination Elevated LDL cholesterol level Elevated glucose Chest discomfort BMI 31.0-31.9,adult Hypersomnia Snoring BMI 32.0-32.9,adult Screening for diabetes mellitus Depression Anxiety Eczema Obesity Crohn's disease Surgical History Surgical History Hx of breast implant H/O abdominoplasty H/O breast augmentation (~12/2023) Hx of appendectomy 2015 History of colon surgery Family History Family History Father Hypertension Mother Hypertension COPD (chronic obstructive pulmonary disease) Heart disease Grandparent Cerebrovascular accident Social History Social History Smoking status: Former smoker Tobacco type: e-cigarettes/vaping Second hand tobacco smoke exposure: No Smoking end date: 01/17/24 Additional smoking assessment comments: VAPED X6 MONTH, QUIT 09/17/23 Alcohol intake: current Drinks per week: 1 Alcohol use details: socially- very rare Substance use: former Substance use type: marijuana Other substance usage details: Daily Last use: 10/16/2024 Do You Feel Safe in your Home?: Yes Lack of Transportation: No Lack of Food: Never True Current Housing: I Have Housing Concerned About Future Housing: No Difficulty Paying Gas/Electric Bills: No Difficulty Paying for Meds: No Currently Unemployed: No Education: High School Diploma/GED Difficulty w/ Childcare or Family Care: No Living arrangements: with family Additional living arrangements comments: HUSB AND 3 CHILDREN Occupation/Education: occupation 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 ) Neurological: alert and oriented Last oral intake: >/= 8 hours ASA classification: II Emergent: no Anesthetic plan: proceed Anesthesia type and monitoring: general LMA and standard monitoring Results Review: All pre-operative results and documents have been reviewed as part of the pre-operative evaluation. TATO by hx, no CPAP since tummy tuck and wt loss, BMI 35, hx of vaping. Informed Consent: The patient's anesthetic plan and its attendant risks and benefits were discussed with the patient/family/POA. Questions were solicited and answers provided to the satisfaction of the patient/family/POA.
[2025-02-12] MEDS: LIDO 1%/EPINEPHRINE 1:100,000 20 ML VIAL 30 ML INFILTRATE (07:26)
[2025-02-12] MEDS: NACL 0.9% IRRIG POUR BOTTLE 900 ML, GENTAMICIN SULFATE INJ 160 MG, ceFAZolin 2 GM, POVI... IRRIGATION (07:26)
[2025-02-12] MEDS: ceFAZolin 2 GM in SODIUM CHLORIDE 0.9% IV 50 ML 100 ML IVPB (07:35)
[2025-02-12] MEDS: fentaNYL CITRATE INJ (*CRX) 100 MCG/2 ML VIAL 25 MCG IV PUSH ×4 (09:29→10:01)
[2025-02-12] MEDS: ONDANSETRON INJ 4 MG/2 ML VIAL IV PUSH (10:22)
[2025-02-12] MEDS: oxyCODONE HCL (*CRX) 5 MG TAB IR PO (10:36)
== END 2025-02-12 11:05 | disposition home or self-care (01) ==
PROVIDERS: PCP Nurse Practitioner Family; Visit Provider Surgery Plastic and Reconstructive Surgery
PROC: (CPT 19325; principal; 2025-02-12 07:30)
PROC: (CPT 19350; 2025-02-12 07:30)
DX: Z41.1 Encounter for cosmetic surgery (principal); D64.9 Anemia, unspecified; G47.33 Obstructive sleep apnea (adult) (pediatric); R35.0 Frequency of micturition; E78.00 Pure hypercholesterolemia, unspecified; G47.10 Hypersomnia, unspecified; F32.A Depression, unspecified; F41.9 Anxiety disorder, unspecified; K50.90 Crohn's disease, unspecified, without complications; R53.83 Other fatigue; F12.90 Cannabis use, unspecified, uncomplicated; Z99.89 Dependence on other enabling machines and devices; E66.9 Obesity, unspecified; Z68.36 Body mass index [BMI] 36.0-36.9, adult; Z98.890 Other specified postprocedural states; Z90.49 Acquired absence of other specified parts of digestive tract; Z87.891 Personal history of nicotine dependence; Z87.11 Personal history of peptic ulcer disease; Z87.19 Personal history of other diseases of the digestive system; Z82.49 Family history of ischemic heart disease and other diseases of the circulatory system
CPT/HCPCS: 19325; 17999; J0690; A9270; J1100; J1171; J1580; J2003; J2004; J2250; J2405; J2590; J2704; J3010; J7120